=== PATIENT | male | born 1945 | race Hispanic/Latino ===

== ENCOUNTER 2016-07-10 20:49 | Inpatient (IN) | payer MEDICARE ==
--- NOTE | 2016-07-10 21:06 | C.PDOC ---
History Of Present Illness Patient BIBA for intermittent left sided chest pain since this morning. Patient has h/o CAD, HTN, A fib, CHF, COPD, multiple prior MIs, given ASA 324mg in the field by ALS. Patient is [place], Occitan is limited. He is currently also c/o associated SOB. Deneis fever, cough, abdominal pain. Time Seen by Provider: 07/10/16 20:55 Chief Complaint (Nursing): Chest Pain History Per: Patient, EMS History/Exam Limitations: language barrier Onset/Duration Of Symptoms: Hrs Current Symptoms Are (Timing): Still Present Severity: Moderate Quality: "Pain" Past Medical History Reviewed: Historical Data, Nursing Documentation, Vital Signs Vital Signs: Last Vital Signs Temp 97.6 F 07/14/16 15:56 Pulse 88 07/14/16 15:56 Resp 20 07/14/16 15:56 BP 104/69 07/14/16 17:40 Pulse Ox 98 07/14/16 15:56 - Medical History PMH: Atrial Fibrillation, CHF (?), Emphysema Surgical History: Hernia Repair, Pacemaker Family History: States: No Known Family Hx - Social History Hx Alcohol Use: No Hx Substance Use: No - Immunization History Hx Tetanus Toxoid Vaccination: No Hx Influenza Vaccination: No Hx Pneumococcal Vaccination: No Review Of Systems Except As Marked, All Systems Reviewed And Found Negative. Constitutional: Negative for: Fever, Chills Cardiovascular: Positive for: Chest Pain Respiratory: Positive for: Shortness of Breath Gastrointestinal: Negative for: Nausea, Vomiting, Abdominal Pain, Diarrhea Skin: Negative for: Rash Physical Exam - Physical Exam Appears: Well, Non-toxic, In Acute Distress (in mild to moderate discomfort) Skin: Normal Color, Warm, Dry, No Rash Head: Normacephalic Eye(s): bilateral: Normal Inspection Oral Mucosa: Moist Chest: Symmetrical Cardiovascular: Rhythm Irregular (tachycardic ) Respiratory: Accessory Muscle Use (mild), Rales (mild at bases B/L), No Rhonchi , Wheezing (mild expiratory B/L) Gastrointestinal/Abdominal: Normal Exam, Bowel Sounds, Soft, No Tenderness Extremity: Normal ROM, Pedal Edema (+ 1 pitting edema B/L LEs), No Calf Tenderness, No Deformity Pulses: Left Dorsalis Pedis: Normal, Right Dorsalis Pedis: Normal Neurological/Psych: Oriented x3 ED Course And Treatment - Laboratory Results Result Diagrams: 07/14/16 07:00 07/14/16 07:00 ECG: Interpreted By Me, Viewed By Me (AV paced rhythm 102 bpm, PVCs, normal axis , no acute ST changes - prior EKG reviewed, LBBB/PPM morphology seen on prior 12/09/15) ECG Interpretation: Abnormal O2 Sat by Pulse Oximetry: 95 (RA) Pulse Ox Interpretation: Normal - Radiology CXR: Interpreted by Me, Viewed By Me (pulmonary vascular congestion, L>>R) Progress Note: Blood work, CXR, EKG ordered and reviewed. 9:10pm - Dr. Pagan spoken with and has seen EKG, does not think patient meets Code Heart criteria. Patient given PO Vit K due to elevated INR, IV solumedrol, duonebs and IV Lasix. CT chest ordered to further evaluate abnormal CXR - admitting resident aware and will follow results. - Physician Consult Information Physician Contacted: Warren Gonzalez Jr. Outcome Of Conversation: Discussed patient with Dr. Gonzalez, he agrees with admission for chest pain, r/o acs, CHF exacerbation, supratherapeutic INR, COPD exacerbation. resident doctor notified. Medical Decision Making Medical Decision Making: differential diagnoses considered: ND/ACS, CHF exacerbation, asthma/copd, pneumonia, bronchitis, PE, aortic dissection, pancreatitis, gastritis, PUD Disposition - Disposition Disposition: HOSPITALIZED Disposition Time: 23:30 Condition: STABLE - Clinical Impression Clinical Impression: Dyspnea, Elevated INR, Chest pain, CHF exacerbation Decision To Admit - Pt Status Changed To: Hospital Disposition Of: Inpatient - Admit Certification Admit to Inpatient:: After my assessment, the patient will require hospitalization for at least two midnights. This is because of the severity of symptoms shown, intensity of services needed, and/or the medical risk in this patient being treated as an outpatient. - InPatient: Physician Admission Certification: I certify that this patient requires 2 or more midnights of care for the following reason:: see notes - . Bed Request Type: Telemetry Admitting Physician: Warren Gonzalez Jr. Patient Diagnosis: Chest pain, CHF exacerbation, Dyspnea, Elevated INR
[2016-07-10 21:20] LABS: BASO % 0.2 % (0.0-2.0); EOS % 0.1 % (0.0-4.0); HEMATOCRIT 39.4 % (35.0-51.0); LYMPH # 0.5 K/uL (1.0-4.3); MEAN CELL VOLUME 90.2 fL (80.0-94.0); MEAN CORPUSCULAR HEMOGLOBIN 29.2 pg (27.0-31.0); MEAN CORPUSCULAR HGB CONC 32.4 g/dL (33.0-37.0); MEAN PLATELET VOLUME 9.8 fL (7.2-11.7); MONO # 1.1 K/uL (0.0-0.8); PLATELET COUNT 175 K/uL (130-400); RED CELL DISTRIBUTION WIDTH 14.2 % (11.5-14.5); WHITE BLOOD COUNT 12.1 K/uL (4.8-10.8)
[2016-07-10 21:27] LABS: CHLORIDE 97 mmol/L (98-107)
[2016-07-10 21:28] LABS: POTASSIUM 4.3 mmol/L (3.6-5.2); SODIUM 137 mmol/L (132-148)
[2016-07-10 21:30] LABS: ALB/GLOB RATIO 1.1 (1.0-2.1); ALKALINE PHOSPHATASE 61 U/L (38-126); AST/SGOT 31 U/L (17-59); BILIRUBIN,TOTAL 0.6 mg/dL (0.2-1.3); BLOOD UREA NITROGEN 23 mg/dL (9-20); CARBON DIOXIDE 30 mmol/L (22-30); CHOLESTEROL 165 mg/dL (0-199); GFR AFRICAN-AMERICAN > 60; GLUCOSE,RANDOM 168 mg/dL (75-110); TOTAL PROTEIN 6.6 g/dL (6.3-8.3)
[2016-07-10 21:31] LABS: ALT/SGPT 24 U/L (21-72)
[2016-07-10] MEDS ORDERED: Albuterol-Ipratrop 3 mg / 0.5 (3 ml) UD INH STA (22:07)
[2016-07-10] MEDS ORDERED: Albuterol-Ipratrop 3 mg / 0.5 (3 ml) UD ONE (22:33)
[2016-07-10 22:43] LABS: EOSINOPHIL 1 % (0-4); NEUTROPHIL 85 % (50-75); TOTAL CELLS COUNTED 100
[2016-07-10 22:45] LABS: LARGE PLATELETS PRESENT
[2016-07-10] MEDS ORDERED: Iodixanol 320 MG/ML 100 ML BOTTLE IV ONE (23:44)
[2016-07-11] MEDS ORDERED: Albuterol-Ipratrop 3 mg / 0.5 (3 ml) UD INH PRN (00:22)
--- NOTE | 2016-07-11 00:35 | CP.PCM.HP ---
History of Present Illness - History of Present Illness History of Present Illness: Patient is a 71 year old male with past medical history of a.fib, CHF, CAD, KS ( per EMR- pt currently denies) who presents with complaint of left sided chest pain that started this morning. Patient was brought to the ED by ambulance who gave the patient 324mg of aspirin. Patient did not receive any nitroglycerin in the field or the ER. EKG with LBBB, present on prior EKG. Code Heart criteria not met per Dr. Pagan. Patient states the pain was a squeezing sensation and that he did not have it before. Patient currently denies chest pain. Patient denies fever, chills, cough, shortness of breath, pain, leg edema , recent travel. Patient admits to occasional dizziness/ light-headedness. PMD: Dr. Taran Cool PMHx: KS, a.fib, PVD, CHF, CAD Meds: lipitor 10mg, lasix 40mg BID, digoxin 0.125mg, coreg 12.5 BID, asa 81mg, aldactone 25mg, coumadin 5mg, labetalol 300mg BID PSH: hernia repair, pacemaker/ AICD Fam Hx: denies Social Hx: former smoker quit 1.5 years ago, denies alcohol and drugs Present on Admission - Present on Admission Any Indicators Present on Admission: No Review of Systems - Constitutional Constitutional: absent: Chills, Fever - EENT Eyes: absent: Change in Vision Nose/Mouth/Throat: absent: Nasal Congestion - Cardiovascular Cardiovascular: Chest Pain (now resolved), Lightheadedness. absent: Leg Edema - Respiratory Respiratory: Dyspnea. absent: Cough - Gastrointestinal Gastrointestinal: absent: Abdominal Pain, Nausea, Vomiting - Genitourinary Genitourinary: absent: Difficulty Urinating, Urinary Frequency - Musculoskeletal Musculoskeletal: absent: Back Pain - Integumentary Integumentary: absent: Rash, Skin Ulcer - Neurological Neurological: absent: Frequent Falls Past Patient History - Infectious Disease Hx of Infectious Diseases: None - Past Medical History & Family History Past Medical History?: Yes - Past Social History Smoking Status: Former Smoker - CARDIAC Hx Atrial Fibrillation: Yes Hx Congestive Heart Failure: Yes (?) Hx Pacemaker: Yes - PULMONARY Hx Emphysema: Yes - NEUROLOGICAL Hx Neurological Disorder: No - HEENT Hx HEENT Problems: No - RENAL Hx Chronic Kidney Disease: No - ENDOCRINE/METABOLIC Hx Endocrine Disorders: No - HEMATOLOGICAL/ONCOLOGICAL Hx Human Immunodeficiency Virus (HIV): No - INTEGUMENTARY Hx Dermatological Problems: No - MUSCULOSKELETAL/RHEUMATOLOGICAL Hx Musculoskeletal Disorders: No Hx Falls: No - GASTROINTESTINAL Hx Gastrointestinal Disorders: No - GENITOURINARY/GYNECOLOGICAL Hx Genitourinary Disorders: No - PSYCHIATRIC Hx Substance Use: No - SURGICAL HISTORY Hx Surgeries: Yes Other/Comment: hernia repair - ANESTHESIA Hx Anesthesia: Yes Hx Anesthesia Reactions: No Meds Allergies/Adverse Reactions: Allergies Allergy/AdvReac Type Severity Reaction Status Date / Time No Known Allergies Allergy Verified 12/09/15 20:42 Physical Exam - Constitutional Appears: Non-toxic, No Acute Distress - Head Exam Head Exam: ATRAUMATIC, NORMOCEPHALIC - Eye Exam Eye Exam: EOMI - ENT Exam ENT Exam: Mucous Membranes Moist - Respiratory Exam Respiratory Exam: Rales, Rhonchi - Cardiovascular Exam Cardiovascular Exam: Irregular Rhythm Additional comments: precordial pulsation noted pacer/ ICD battery palpable in left chest - GI/Abdominal Exam GI & Abdominal Exam: Normal Bowel Sounds, Soft. absent: Tenderness - Extremities Exam Extremities exam: Positive for: normal inspection. Negative for: calf tenderness - Neurological Exam Neurological exam: Alert Results - Vital Signs Recent Vital Signs: Last Vital Signs Temp 98.4 F 07/10/16 21:00 Pulse 90 07/10/16 23:15 Resp 18 07/10/16 23:15 BP 151/75 H 07/10/16 23:15 Pulse Ox 95 07/10/16 23:33 - Labs Result Diagrams: 07/10/16 21:15 07/10/16 21:15 Assessment & Plan - Assessment and Plan (Free Text) Assessment: 1. Chest pain, r/o ACS now resolved troponin on admission 0.1060 Code Heart criteria not met per Dr. Pagan EKG with LBBB, present on prior EKG will continue to trend troponin lipid panel: triglycerides 76, cholesterol 165, LDL 91, HDL 49 continue home medication: lipitor 10mg will check Hgb a1c, TSH, T4 2. CHF exacerbation BNP 7850 start lasix 60mg IV q12h continue home medication aldactone 25mg daily hold home medication digoxin until dig level obtained, if 1 or greater will continue to hold adding imdur 30mg daily holding labetalol 300mg BID for now, will continue coreg 12.5 BID last echo 12/2015- EF 10%, severely dilated left ventricle will check new echo CXR with venous congestion bilaterally, left greater than right. CTA chest ordered to further evaluate for infiltrate and rule out pulmonary embolus Consult cardiology, Dr. Cruz- help appreciated 3. A. fib rate controlled hold coumadin as INR 5.0 on admission and received 5mg vitamin K re-check INR with morning labs 4. CAD continue aspirin 81mg daily 5. History of Smoking patient with questionable history of COPD received 125 solumedrol in ER, will continue with solumedrol 40mg IV q12h duonebs q6h prn dyspnea 6. Prophylactic measure SCDs holding chemical anticoagulation due to supratherapeutic INR
--- NOTE | 2016-07-11 01:31 | CT ---
EXAM: CT Angiography Chest With Intravenous Contrast CLINICAL HISTORY: 71 years old, male; Pain; Chest pain; Additional info: SOB, left sided effusion vs infiltrate TECHNIQUE: Axial computed tomographic angiography images of the chest with intravenous contrast using pulmonary embolism protocol. This CT exam was performed using one or more of the following dose reduction techniques: automated exposure control, adjustment of the mA and/or kV according to patient size, and/or use of iterative reconstruction technique. MIP reconstructed images were created and reviewed. Coronal and sagittal reformatted images were created and reviewed. CONTRAST: 100 mL of visipaque administered intravenously. COMPARISON: No relevant prior studies available. FINDINGS: Pulmonary arteries: No evidence for large or central pulmonary embolism. Motion artifact limits evaluation of smaller branches. Aorta: Thoracic aorta is atherosclerotic and mildly ectatic without yany aneurysm. Inferior vena cava: Mild reflux into the IVC and hepatic veins raise the possibility of mild right heart failure. Lungs: There are multifocal small airspace opacities in the left upper lobe and lingula most compatible with multifocal pneumonia. A few additional small patchy opacities in the right middle lobe inferiorly. Mild atelectasis at the bases. Pleural space: There is loculated small effusion within the left major fissure and to a lesser extent at the left posterior pleural surface. Questionable trace right effusion. Heart: The heart is moderately enlarged. There is coronary artery calcification. Mediastinum: The esophagus is normal. Bones/joints: There are mild degenerative changes present. There is marked diffuse osteopenia. There is exaggerated thoracic kyphosis. Soft tissues: Unremarkable. Lymph nodes: There is mediastinal lymphadenopathy. There is no axillary adenopathy. No definite hilar adenopathy. Upper abdomen: Scans through the upper abdomen demonstrate no definite acute abnormalities. Tubes, lines and devices: There is a left AICD device with leads extending to right atrium, right ventricle and left ventricle. IMPRESSION: 1. There is mediastinal lymphadenopathy. 2. The heart is moderately enlarged. 3. No evidence for large or central pulmonary embolism. Motion artifact limits evaluation of smaller branches. 4. There are multifocal small airspace opacities in the left upper lobe and lingula most compatible with multifocal pneumonia. A few additional small patchy opacities in the right middle lobe inferiorly. 5. There is loculated small effusion within the left major fissure and to a lesser extent at the left posterior pleural surface. Questionable trace right effusion. 6. Mild reflux into the IVC and hepatic veins raise the possibility of mild right heart failure. 7. Additional incidental and/or chronic findings as described.
[2016-07-11 07:53] LABS: INR 2.8
[2016-07-11 07:57] LABS: BASO % 0.1 % (0.0-2.0); HEMATOCRIT 42.1 % (35.0-51.0); LYMPH # 0.4 K/uL (1.0-4.3); LYMPH % 3.3 % (20.0-40.0); MEAN CORPUSCULAR HEMOGLOBIN 28.8 pg (27.0-31.0); MEAN CORPUSCULAR HGB CONC 32.3 g/dL (33.0-37.0); MEAN PLATELET VOLUME 9.6 fL (7.2-11.7); MONO # 0.2 K/uL (0.0-0.8); MONO % 1.6 % (0.0-10.0); PLATELET COUNT 167 K/uL (130-400); RED CELL DISTRIBUTION WIDTH 14.3 % (11.5-14.5); WHITE BLOOD COUNT 11.9 K/uL (4.8-10.8)
[2016-07-11 08:19] LABS: CHLORIDE 98 mmol/L (98-107); POTASSIUM 3.9 mmol/L (3.6-5.2); SODIUM 140 mmol/L (132-148)
[2016-07-11 08:21] LABS: ALKALINE PHOSPHATASE 67 U/L (38-126); AST/SGOT 27 U/L (17-59); BILIRUBIN,TOTAL 0.7 mg/dL (0.2-1.3); BLOOD UREA NITROGEN 21 mg/dL (9-20); CARBON DIOXIDE 31 mmol/L (22-30); GFR AFRICAN-AMERICAN > 60; TOTAL PROTEIN 6.7 g/dL (6.3-8.3)
[2016-07-11 08:22] LABS: ALT/SGPT 24 U/L (21-72); CALCIUM 8.2 mg/dl (8.6-10.4); GLUCOSE,RANDOM 162 mg/dL (75-110); MAGNESIUM 2.2 mg/dL (1.6-2.3); PHOSPHOROUS 3.5 mg/dL (2.5-4.5)
--- NOTE | 2016-07-11 08:31 | RAD ---
PROCEDURE: CHEST RADIOGRAPH, 1 VIEW HISTORY: Chest pain COMPARISON: None available. FINDINGS: LUNGS: Diffuse prominent increased interstitial lung markings throughout the left lung as well as within the right lung base. Right hilar prominence. This may be related to underlying diffuse infiltrate and or edema. Clinical correlation. Right paratracheal prominence may represent prominent vascularity. Small left pleural effusion. PLEURA: As above. CARDIOVASCULAR: Left-sided pacemaker. Cardiomegaly. OSSEOUS STRUCTURES: No significant abnormalities. VISUALIZED UPPER ABDOMEN: Normal. OTHER FINDINGS: None. IMPRESSION: Diffuse prominent increased interstitial lung markings throughout the left lung as well as within the right lung base. Right hilar prominence. This may be related to underlying diffuse infiltrate and or edema. Clinical correlation. Right paratracheal prominence may represent prominent vascularity. Small left pleural effusion.
[2016-07-11 08:46] LABS: T4 5.55 ug/dL (5.5-11.0)
[2016-07-11 08:59] LABS: THYROID STIMULATING HORMONE 0.23 mIU/L (0.46-4.68)
[2016-07-11 09:24] LABS: NEUTROPHIL 95 % (50-75); TOTAL CELLS COUNTED 100
[2016-07-11] MEDS: MethylPREDNISolone 40 mg Vial IVP SCH ×2 (09:54→21:19)
--- NOTE | 2016-07-11 11:53 | CP.PCM.CON ---
History of Present Illness - History of Present Illness History of Present Illness: Asked to see patient by Dr Gonzalez. Patient is a 71 year old male 71 year old male with PMH HTN, ischemic cardiomyopathy, CAD, AICD who presents with chest pain and dyspnea. Symtpoms began one day prior to admission. The EKG reveals paced ventricular rhythm. The patient was given IV lasix. He is somewhat improved. Review of Systems - Constitutional Constitutional: absent: As Per HPI, Anorexia, Chills, Daytime Sleepiness, Excessive Sweating, Fatigue, Fever, Frequent Falls, Headache, Increased Appetite , Lethargy, Malaise, Night Sweats, Snoring, Sleep Apnea, Weight Gain, Weight Loss, Weakness, Other - EENT Eyes: absent: As Per HPI, Blind Spots, Blurred Vision, Change in Vision, Decreased Night Vision, Diplopia, Discharge, Dry Eye, Exophthalmos, Floaters, Irritation, Itchy Eyes, Loss of Peripheral Vision, Pain, Photophobia, Requires Corrective Lenses, Sees Flashes, Spots in Vision, Tunnel Vision, Other Visual Disturbances, Loss of Vision, Other Ears: absent: As Per HPI, Decreased Hearing, Ear Discharge, Ear Pain, Tinnitus, Abnormal Hearing, Disequilibrium, Dizziness, Other Nose/Mouth/Throat: absent: As Per HPI, Epistaxis, Nasal Congestion, Nasal Discharge, Nasal Obstruction, Nasal Trauma, Nose Pain, Post Nasal Drip, Sinus Pain, Sinus Pressure, Bleeding Gums, Change in Voice, Dental Pain, Dry Mouth, Dysphagia, Halitosis, Hoarsness, Lip Swelling, Mouth Lesions, Mouth Pain, Odynophagia, Sore Throat, Throat Swelling, Tongue Swelling, Facial Pain, Neck Pain, Neck Mass, Other - Cardiovascular Cardiovascular: Dyspnea, Paroxysmal Nocturnal Dyspnea - Respiratory Respiratory: Dyspnea on Exertion - Gastrointestinal Gastrointestinal: absent: As Per HPI, Abdominal Pain, Belching, Bloating, Change in Bowel Habits, Change in Stool Character, Coffee Ground Emesis, Constipation, Cramping, Diarrhea, Dyspepsia, Dysphagia, Early Satiety, Excessive Flatus, Fecal Incontinence, Heartburn, Hematemesis, Hematochezia, Loose Stools, Melena, Nausea, Odynophagia, Temesmus, Vomiting, Other - Musculoskeletal Musculoskeletal: absent: As Per HPI, Abnormal Gait, Arthralgias, Atrophy, Back Pain, Deformity, Joint Swelling, Limited Range of Motion, Loss of Height, Muscle Cramps, Muscle Weakness, Myalgias, Neck Pain, Numbness, Radiating Pain into Limb, Stiffness, Tingling, Other - Integumentary Integumentary: absent: As Per HPI, Acne, Alopecia, Bleeding Lesions, Change in Hair, Change in Nails, Change in Pigmentation, Changing Lesions, Dry Skin, Erythema, Furuncle, Hirsutism, Lesions, New Lesions, Non-Healing Lesions, Photosensitivity, Pruritus, Rash, Skin Pain, Skin Ulcer, Sores, Striae, Swelling , Unusual Bruising, Wounds, Jaundice, Other - Neurological Neurological: absent: As Per HPI, Abnormal Gait, Abnormal Hearing, Abnormal Movements, Abnormal Speech, Behavioral Changes, Burning Sensations, Confusion, Convulsions, Disequilibrium, Dizziness, Numbness, Focal Weakness, Frequent Falls , Headaches, Lack of Coordination, Loss of Vision, Memory Loss, Paresthesias, Radicular Pain, Restless Legs, Sensory Deficit, Syncope, Tingling, Tremor, Vertigo, Weakness, Other Visual Disturbances, Other - Psychiatric Psychiatric: absent: As Per HPI, Abnormal Sleep Pattern, Anhedonia, Anxiety, Auditory Hallucinations, Behavioral Changes, Change in Appetite, Change in Libido, Confusion, Depression, Difficulty Concentrating, Hallucinations, Homicidal Ideation, Hopelessness, Irritability, Memory Loss, Mood Swings, Panic Attacks, Paranoia, Suicidal Ideation, Visual Hallucinations, Tactile Hallucinations, Other - Endocrine Endocrine: absent: As Per HPI, Change in Body Appearance, Change in Libido, Cold Intolorance, Deepening of Voice, Excessive Sweating, Fatigue, Flushing, Heat Intolorance, Increase in Ring/Shoe/Hat Size, Palpitations, Polydipsia, Polyphagia, Polyuria, Other - Hematologic/Lymphatic Hematologic: absent: As Per HPI, Easy Bleeding, Easy Bruising, Lymphadenopathy, Other Past Patient History - Infectious Disease Hx of Infectious Diseases: None - Past Medical History & Family History Past Medical History?: Yes - Past Social History Smoking Status: Former Smoker - CARDIAC Hx Atrial Fibrillation: Yes Hx Congestive Heart Failure: Yes (?) Hx Pacemaker: Yes - PULMONARY Hx Emphysema: Yes - NEUROLOGICAL Hx Neurological Disorder: No - HEENT Hx HEENT Problems: No - RENAL Hx Chronic Kidney Disease: No - ENDOCRINE/METABOLIC Hx Endocrine Disorders: No - HEMATOLOGICAL/ONCOLOGICAL Hx Human Immunodeficiency Virus (HIV): No - INTEGUMENTARY Hx Dermatological Problems: No - MUSCULOSKELETAL/RHEUMATOLOGICAL Hx Musculoskeletal Disorders: No Hx Falls: No - GASTROINTESTINAL Hx Gastrointestinal Disorders: No - GENITOURINARY/GYNECOLOGICAL Hx Genitourinary Disorders: No - PSYCHIATRIC Hx Substance Use: No - SURGICAL HISTORY Hx Surgeries: Yes Other/Comment: hernia repair - ANESTHESIA Hx Anesthesia: Yes Hx Anesthesia Reactions: No Meds Allergies/Adverse Reactions: Allergies Allergy/AdvReac Type Severity Reaction Status Date / Time No Known Allergies Allergy Verified 12/09/15 20:42 - Medications Medications: Current Medications Albuterol/Ipratropium (Duoneb 3 Mg/0.5 Mg (3 Ml) Ud) 3 ml INH RQ6 PRN PRN Reason: Shortness of Breath Last Admin: 07/11/16 01:34 Dose: 3 ml Aspirin (Ecotrin) 81 mg PO DAILY [facility] Last Admin: 07/11/16 09:54 Dose: 81 mg Carvedilol (Coreg) 12.5 mg PO BID [facility] Last Admin: 07/11/16 09:54 Dose: 12.5 mg Furosemide (Lasix) 60 mg IVP Q12 [facility] Last Admin: 07/11/16 09:54 Dose: 60 mg Isosorbide Mononitrate (Imdur) 30 mg PO DAILY [facility] Last Admin: 07/11/16 09:54 Dose: 30 mg Lisinopril (Zestril) 10 mg PO DAILY [facility] Last Admin: 07/11/16 09:54 Dose: 10 mg Methylprednisolone (Solu-Medrol) 40 mg IVP Q12 [facility] Last Admin: 07/11/16 09:54 Dose: 40 mg Pneumococcal Polyvalent Vaccine (Pneumovax 23 Vaccine) 0.5 ml IM .ONCE ONE Stop: 07/13/16 10:01 Rosuvastatin Calcium (Crestor) 5 mg PO [facility] Spironolactone (Aldactone) 25 mg PO DAILY [facility] Last Admin: 07/11/16 09:54 Dose: 25 mg Physical Exam - Constitutional Appears: Non-toxic - Head Exam Head Exam: NORMAL INSPECTION - Eye Exam Eye Exam: Normal appearance - ENT Exam ENT Exam: Mucous Membranes Moist - Neck Exam Neck exam: Positive for: Full Rom - Respiratory Exam Respiratory Exam: Decreased Breath Sounds - Cardiovascular Exam Cardiovascular Exam: REGULAR RHYTHM - GI/Abdominal Exam GI & Abdominal Exam: Normal Bowel Sounds - Rectal Exam Rectal Exam: Deferred - Extremities Exam Extremities exam: Positive for: pedal pulses present - Back Exam Back exam: NORMAL INSPECTION - Neurological Exam Neurological exam: Alert - Psychiatric Exam Psychiatric exam: Normal Mood - Skin Skin Exam: Dry Results - Vital Signs Recent Vital Signs: Last Vital Signs Temp 97.5 F L 07/11/16 07:00 Pulse 70 07/11/16 07:00 Resp 20 07/11/16 07:00 BP 125/71 07/11/16 09:54 Pulse Ox 94 L 07/11/16 07:00 - Labs Result Diagrams: 07/11/16 07:37 07/11/16 07:37 Labs: Laboratory Results - last 24 hr 07/11/16 07/11/16 07/11/16 00:38 02:56 07:37 WBC 11.9 H RBC 4.73 Hgb 13.6 Hct 42.1 MCV 89.0 MCH 28.8 MCHC 32.3 L RDW 14.3 Plt Count 167 MPV 9.6 Neut % (Auto) 95.0 H Lymph % (Auto) 3.3 L Leon % (Auto) 1.6 Eos % (Auto) 0.0 Baso % (Auto) 0.1 Neut # 11.3 H Lymph # 0.4 L Leon # 0.2 Eos # 0.0 Baso # 0.0 Neutrophils % (Manual) 95 H Band Neutrophils % 1 Lymphocytes % (Manual) 2 L Monocytes % (Manual) 2 Platelet Estimate Normal RBC Morphology Normal PT 32.8 H* D INR 2.8 D Sodium 140 Potassium 3.9 Chloride 98 Carbon Dioxide 31 H Anion Gap 15 BUN 21 H Creatinine 0.7 L Est GFR ( Amer) > 60 Est GFR (Non-Af Amer) > 60 Random Glucose 162 H Hemoglobin A1c 6.3 Calcium 8.2 L Phosphorus 3.5 Magnesium 2.2 Total Bilirubin 0.7 AST 27 ALT 24 Alkaline Phosphatase 67 Total Creatine Kinase 92 CK-MB (Mass) 1.65 Troponin I, Quant 0.1080 Total Protein 6.7 Albumin 3.4 L Globulin 3.3 Albumin/Globulin Ratio 1.0 Thyroxine (T4) 5.55 TSH 3rd Generation 0.23 L Digoxin < 0.4 L 07/11/16 11:12 WBC RBC Hgb Hct MCV MCH MCHC RDW Plt Count MPV Neut % (Auto) Lymph % (Auto) Leon % (Auto) Eos % (Auto) Baso % (Auto) Neut # Lymph # Leon # Eos # Baso # Neutrophils % (Manual) Band Neutrophils % Lymphocytes % (Manual) Monocytes % (Manual) Platelet Estimate RBC Morphology PT INR Sodium Potassium Chloride Carbon Dioxide Anion Gap BUN Creatinine Est GFR ( Amer) Est GFR (Non-Af Amer) Random Glucose Hemoglobin A1c Calcium Phosphorus Magnesium Total Bilirubin AST ALT Alkaline Phosphatase Total Creatine Kinase 91 CK-MB (Mass) Troponin I, Quant Total Protein Albumin Globulin Albumin/Globulin Ratio Thyroxine (T4) TSH 3rd Generation Digoxin - EKG Data EKG Interpreted by: Myself Assessment & Plan (1) CHF exacerbation Assessment and Plan: diuresis with lasix Status: Acute Priority: High (2) CAD (coronary artery disease) Assessment and Plan: check serial cardiac enzymes Status: Acute (3) HTN (hypertension) Assessment and Plan: blood presssure control Status: Acute (4) Chronic atrial fibrillation Assessment and Plan: watching INR Status: Acute
--- NOTE | 2016-07-11 12:27 | CARD ---
APPROVED REPORT EKG Measurement Heart [id number] <Conclusion> AV dual-paced rhythm with occasional ventricular-paced complexes and with occasional premature ventricular complexes Abnormal ECG
--- NOTE | 2016-07-11 12:48 | CARD ---
APPROVED REPORT EXAM: Two-dimensional and M-mode echocardiogram with Doppler and color Doppler. Other Information Quality : GoodRhythm : NSR INDICATION Chest Pain Congestive Heart Failure R/O ACS CHF EXACERBATION SURAT M-Mode DIMENSIONS RVDd1.48 (2.1-3.2cm)Left Atrium (MM)3.59 (2.5-4.0cm) IVSd1.64 (0.7-1.1cm)Aortic Root3.32 (2.2-3.7cm) LVDd6.79 (4.0-5.6cm)Aortic Cusp Exc.2.19 (1.5-2.0cm) PWd1.41 (0.7-1.1cm)FS (%) 21 % LVDs5.35 (2.0-3.8cm)LVEF (%)42 (>50%) Mitral Valve MV E Fbxrcmoz94.6cm/sMV A Qfkhkijx60.5cm/sE/A ratio1.1 TDI E/Lateral E'0.0E/Medial E'0.0 Tricuspid Valve TR Peak [id number]/sTR Peak Gr.[id number] LEFT VENTRICLE The Left Ventricle is mildly dilated. There is mild concentric left ventricular hypertrophy. Left ventricle systolic function is mildly to moderately impaired. The Ejection Fraction is 40-45%. There is hypokinesis in the apical inferior wall. Apical motion consistent with pacemaker activation. Transmitral Doppler flow pattern is Grade I-abnormal relaxation pattern. There is no ventricular septal defect visualized. RIGHT VENTRICLE The right ventricle is normal size. The right ventricular systolic function is normal. There is a pacemaker lead in the right ventricle. ATRIA The left atrium is mildly dilated. The right atrium size is normal. AORTIC VALVE The aortic valve is mildly to moderately sclerotic. The aortic valve is tri-cuspid. No aortic regurgitation is present. There is no aortic valvular stenosis. MITRAL VALVE Mitral annular calcification is borderline. There is no evidence of mitral valve prolapse. Mitral regurgitation is trace. TRICUSPID VALVE The tricuspid valve is normal in structure. There is trace tricuspid regurgitation. Right ventricular systolic pressure is estimated at 30-40 mmHg. There is mild pulmonary hypertension. PULMONIC VALVE The pulmonic valve is not well visualized. There is trace pulmonic valvular regurgitation. GREAT VESSELS The IVC is normal in size and collapses >50% with inspiration. PERICARDIAL EFFUSION There is a trace circumferential pericardial effusion. <Conclusion> Left ventricle systolic function is mildly to moderately impaired. The Ejection Fraction is 40-45%. There is hypokinesis in the apical inferior wall. Transmitral Doppler flow pattern is Grade I-abnormal relaxation pattern. Mitral regurgitation is trace. There is mild pulmonary hypertension.
--- NOTE | 2016-07-11 18:46 | CP.PCM.PN ---
<RommelnidhiRustam burnsn - Last Filed: 07/11/16 19:38> Subjective - Date & Time of Evaluation Date of Evaluation: 07/11/16 Time of Evaluation: 11:12 - Subjective Subjective: Pt seen and examined. Pt reports that his chest pain and shortness of breath have improved. Pt complains of weakness in his right thumb and finger when buttoning his shirt which began about a week ago. Pt denies headache, dizziness , fever, chills, changes in vision, nausea, vomiting, paresthesias. Objective - Vital Signs/Intake and Output Vital Signs (last 24 hours): Temp Pulse Resp BP Pulse Ox 97.3 F L 71 20 112/77 95 07/11/16 15:47 07/11/16 15:47 07/11/16 15:47 07/11/16 18:14 07/11/16 15:47 Intake and Output: 07/11/16 07/11/16 06:59 18:59 Intake Total 220 Output Total 800 Balance -580 - Medications Medications: Current Medications Albuterol/Ipratropium (Duoneb 3 Mg/0.5 Mg (3 Ml) Ud) 3 ml INH RQ6 PRN PRN Reason: Shortness of Breath Last Admin: 07/11/16 01:34 Dose: 3 ml Aspirin (Ecotrin) 81 mg PO DAILY [facility] Last Admin: 07/11/16 09:54 Dose: 81 mg Carvedilol (Coreg) 12.5 mg PO BID [facility] Last Admin: 07/11/16 18:14 Dose: 12.5 mg Furosemide (Lasix) 60 mg IVP Q12 [facility] Last Admin: 07/11/16 09:54 Dose: 60 mg Isosorbide Mononitrate (Imdur) 30 mg PO DAILY [facility] Last Admin: 07/11/16 09:54 Dose: 30 mg Lisinopril (Zestril) 10 mg PO DAILY [facility] Last Admin: 07/11/16 09:54 Dose: 10 mg Methylprednisolone (Solu-Medrol) 40 mg IVP Q12 [facility] Last Admin: 07/11/16 09:54 Dose: 40 mg Pneumococcal Polyvalent Vaccine (Pneumovax 23 Vaccine) 0.5 ml IM .ONCE ONE Stop: 07/13/16 10:01 Rosuvastatin Calcium (Crestor) 5 mg PO [facility] Spironolactone (Aldactone) 25 mg PO DAILY [facility] Last Admin: 07/11/16 09:54 Dose: 25 mg - Labs Labs: 07/11/16 07:37 07/11/16 07:37 PT 32.8 SECONDS (9.7-12.2) H* D 07/11/16 07:37 INR 2.8 D 07/11/16 07:37 APTT 58 SECONDS (21-34) H 07/10/16 21:15 - Constitutional Appears: No Acute Distress - Head Exam Head Exam: ATRAUMATIC, NORMOCEPHALIC - Eye Exam Eye Exam: EOMI, PERRL - ENT Exam ENT Exam: Mucous Membranes Moist. absent: Mucous Membranes Dry - Respiratory Exam Respiratory Exam: Clear to Ausculation Bilateral. absent: Rales, Rhonchi, Wheezes, Respiratory Distress - Cardiovascular Exam Cardiovascular Exam: +S1, +S2. absent: Gallop, Rubs - GI/Abdominal Exam GI & Abdominal Exam: Soft. absent: Tenderness - Extremities Exam Extremities Exam: Full ROM. absent: Pedal Edema - Neurological Exam Neurological Exam: Alert, Awake, Oriented x3 - Psychiatric Exam Psychiatric exam: Normal Affect, Normal Mood - Skin Skin Exam: Normal Color, Warm Assessment and Plan - Assessment and Plan (Free Text) Assessment: CHF exacerbation/Dyspnea: Pro-BNP 7850 EKG - dual paced rhythm with occasional PVCs; abnormal EKG (please see full report) CXR with venous congestion bilaterally, left greater than right (please see full report) Lasix 60mg IV q12h Aldactone 25 mg po bid Digoxin 0.125 mg po bid Echocardiogram: EF 40-45%, mild pulmonary HTN, trace mitral regurgitation Imdur 30mg po qd Coreg 12.5 mg po bid Zestril 10 mg po qd Cardiology, Dr. Cruz, consulted. Help appreciated. Duonebs prn for shortness of breath WBC 11.9 Solumedrol 40 mg IV q12h Nontachycardic, no leukocytosis Atrial Fibrillation Coreg 12.5 mg po bid INR 2.8 HTN: Coreg 12.5 mg po bid Zestril 10 mg po qd Aldactone 25 mg po bid Coronary Artery Disease Aspirin 81mg daily Crestor 5 mg po qd Prophylactic measure SCDs holding chemical anticoagulation due to supratherapeutic INR <Warren Gonzalez Jr. - Last Filed: 07/14/16 16:48> Objective - Vital Signs/Intake and Output Vital Signs (last 24 hours): Temp Pulse Resp BP Pulse Ox 97.6 F 88 20 133/78 98 07/14/16 15:56 07/14/16 15:56 07/14/16 15:56 07/14/16 15:56 07/14/16 15:56 Intake and Output: 07/14/16 07/14/16 06:59 18:59 Intake Total 950 Balance 950 - Medications Medications: Current Medications Albuterol/Ipratropium (Duoneb 3 Mg/0.5 Mg (3 Ml) Ud) 3 ml INH RQ6 PRN PRN Reason: Shortness of Breath Last Admin: 07/11/16 01:34 Dose: 3 ml Aspirin (Ecotrin) 81 mg PO DAILY [facility] Last Admin: 07/14/16 09:56 Dose: 81 mg Carvedilol (Coreg) 12.5 mg PO BID [facility] Last Admin: 07/14/16 09:55 Dose: 12.5 mg Digoxin (Lanoxin) 0.125 mg PO DAILY@1800 [facility] Last Admin: 07/13/16 17:30 Dose: 0.125 mg Furosemide (Lasix) 60 mg IVP Q12 [facility] Last Admin: 07/14/16 09:56 Dose: 60 mg Azithromycin 500 mg/ Sodium (Chloride) 250 mls @ 250 mls/hr IVPB DAILY [facility] Last Admin: 07/14/16 10:06 Dose: 250 mls/hr Ceftriaxone Sodium 1 gm/ (Sodium Chloride) 100 mls @ 200 mls/hr IVPB Q24H [facility] Last Admin: 07/14/16 12:31 Dose: 200 mls/hr Isosorbide Mononitrate (Imdur) 30 mg PO DAILY [facility] Last Admin: 07/14/16 10:40 Dose: 30 mg Lisinopril (Zestril) 10 mg PO DAILY [facility] Last Admin: 07/14/16 09:56 Dose: 10 mg Methylprednisolone (Solu-Medrol) 40 mg IVP DAILY [facility] Last Admin: 07/14/16 09:56 Dose: 40 mg Rosuvastatin Calcium (Crestor) 5 mg PO HS [facility] Last Admin: 07/13/16 21:36 Dose: 5 mg Saccharomyces Boulardii (Florastor) 250 mg PO BID [facility] Last Admin: 07/14/16 09:56 Dose: 250 mg Spironolactone (Aldactone) 25 mg PO DAILY [facility] Last Admin: 07/14/16 09:55 Dose: 25 mg - Labs Labs: 07/14/16 07:00 07/14/16 07:00 PT 26.9 SECONDS (9.7-12.2) H D 07/14/16 07:00 INR 2.3 D 07/14/16 07:00 APTT 58 SECONDS (21-34) H 07/10/16 21:15 Attending/Attestation - Attestation I have personally seen and examined this patient.: Yes I have fully participated in the care of the patient.: Yes I have reviewed all pertinent clinical information, including history, physical exam and plan: Yes Notes (Text): 07/14/16 16:48 Patient seen and examined. Agree with resident note and plan of care.
[2016-07-12 08:21] LABS: HEMATOCRIT 37.9 % (35.0-51.0); LYMPH # 0.6 K/uL (1.0-4.3); LYMPH % 3.6 % (20.0-40.0); MEAN CELL VOLUME 89.3 fL (80.0-94.0); MEAN CORPUSCULAR HEMOGLOBIN 28.9 pg (27.0-31.0); MEAN CORPUSCULAR HGB CONC 32.3 g/dL (33.0-37.0); MEAN PLATELET VOLUME 10.1 fL (7.2-11.7); MONO # 0.8 K/uL (0.0-0.8); MONO % 4.5 % (0.0-10.0); PLATELET COUNT 197 K/uL (130-400); WHITE BLOOD COUNT 16.8 K/uL (4.8-10.8)
[2016-07-12 08:31] LABS: CHLORIDE 100 mmol/L (98-107); INR 1.2; POTASSIUM 3.9 mmol/L (3.6-5.2); SODIUM 138 mmol/L (132-148)
[2016-07-12 08:33] LABS: BILIRUBIN,TOTAL 0.5 mg/dL (0.2-1.3); GFR AFRICAN-AMERICAN > 60
[2016-07-12 08:34] LABS: ALB/GLOB RATIO 0.9 (1.0-2.1); ALKALINE PHOSPHATASE 55 U/L (38-126); ALT/SGPT 19 U/L (21-72); AST/SGOT 22 U/L (17-59); BLOOD UREA NITROGEN 36 mg/dL (9-20); CARBON DIOXIDE 28 mmol/L (22-30); GLUCOSE,RANDOM 175 mg/dL (75-110); PHOSPHOROUS 3.8 mg/dL (2.5-4.5)
[2016-07-12 08:35] LABS: CALCIUM 8.1 mg/dl (8.6-10.4); MAGNESIUM 2.1 mg/dL (1.6-2.3)
[2016-07-12] MEDS: MethylPREDNISolone 40 mg Vial IVP SCH ×2 (10:11→22:22)
[2016-07-12 10:14] LABS: NEUTROPHIL 82 % (50-75); REACTIVE LYMPHOCYTES 1 % (0-0); TOTAL CELLS COUNTED 100
[2016-07-12 10:15] LABS: LARGE PLATELETS PRESENT
[2016-07-12] MEDS: Azithromycin 500 MG in Sodium Chloride 0.9% 250 ML IVPB SCH (12:52)
--- NOTE | 2016-07-12 13:30 | CP.PCM.PN ---
<Justin Batres - Last Filed: 07/12/16 13:51> Subjective - Date & Time of Evaluation Date of Evaluation: 07/12/16 Time of Evaluation: 07:52 - Subjective Subjective: Pt seen and examined. Pt reports that he is feeling better today. Pt reports that he is still experiencing weakness with opposition of his thumb and index finger on his right hand. Pt denies fever, chills, chest pain, shortness of breath, nausea, and vomiting. Objective - Vital Signs/Intake and Output Vital Signs (last 24 hours): Temp Pulse Resp BP Pulse Ox 97.4 F L 72 19 120/69 93 L 07/12/16 08:00 07/12/16 08:00 07/12/16 08:00 07/12/16 10:11 07/12/16 08:00 - Medications Medications: Current Medications Albuterol/Ipratropium (Duoneb 3 Mg/0.5 Mg (3 Ml) Ud) 3 ml INH RQ6 PRN PRN Reason: Shortness of Breath Last Admin: 07/11/16 01:34 Dose: 3 ml Aspirin (Ecotrin) 81 mg PO DAILY [facility] Last Admin: 07/12/16 10:10 Dose: 81 mg Carvedilol (Coreg) 12.5 mg PO BID [facility] Last Admin: 07/12/16 10:10 Dose: 12.5 mg Digoxin (Lanoxin) 0.125 mg PO DAILY@1800 [facility] Furosemide (Lasix) 60 mg IVP Q12 [facility] Last Admin: 07/12/16 10:11 Dose: 60 mg Azithromycin 500 mg/ Sodium (Chloride) 250 mls @ 250 mls/hr IVPB DAILY [facility] Last Admin: 07/12/16 12:52 Dose: 250 mls/hr Ceftriaxone Sodium 1 gm/ (Sodium Chloride) 100 mls @ 200 mls/hr IVPB Q24H [facility] Last Admin: 07/12/16 12:51 Dose: 200 mls/hr Isosorbide Mononitrate (Imdur) 30 mg PO DAILY [facility] Last Admin: 07/12/16 10:11 Dose: 30 mg Lisinopril (Zestril) 10 mg PO DAILY [facility] Last Admin: 07/12/16 10:11 Dose: 10 mg Methylprednisolone (Solu-Medrol) 40 mg IVP Q12 [facility] Last Admin: 07/12/16 10:11 Dose: 40 mg Pneumococcal Polyvalent Vaccine (Pneumovax 23 Vaccine) 0.5 ml IM .ONCE ONE Stop: 07/13/16 10:01 Rosuvastatin Calcium (Crestor) 5 mg PO HS [facility] Last Admin: 07/11/16 21:20 Dose: 5 mg Spironolactone (Aldactone) 25 mg PO DAILY [facility] Last Admin: 07/12/16 10:10 Dose: 25 mg - Labs Labs: 07/12/16 08:15 07/12/16 08:15 PT 14.0 SECONDS (9.7-12.2) H D 07/12/16 08:15 INR 1.2 D 07/12/16 08:15 APTT 58 SECONDS (21-34) H 07/10/16 21:15 - Constitutional Appears: No Acute Distress - Head Exam Head Exam: ATRAUMATIC, NORMOCEPHALIC - Eye Exam Eye Exam: EOMI, PERRL - ENT Exam ENT Exam: Mucous Membranes Moist. absent: Mucous Membranes Dry - Neck Exam Neck Exam: Full ROM. absent: Lymphadenopathy - Respiratory Exam Respiratory Exam: Clear to Ausculation Bilateral. absent: Rhonchi, Wheezes - Cardiovascular Exam Cardiovascular Exam: +S1, +S2. absent: Gallop, Rubs - GI/Abdominal Exam GI & Abdominal Exam: Soft. absent: Distended, Tenderness - Extremities Exam Extremities Exam: Full ROM. absent: Pedal Edema - Neurological Exam Neurological Exam: Alert, Awake, Oriented x3 - Psychiatric Exam Psychiatric exam: Normal Affect, Normal Mood - Skin Skin Exam: Normal Color, Warm Assessment and Plan - Assessment and Plan (Free Text) Assessment: Pneumonia: Chest CT - mediastinal lymphadenopathy, no evidence of large or central pulmonary embolism, multifocal airspace opacities in left upper lobe and lingula most compatible with multifocal pneumonia; loculated small effusion ( please see full report) Afebrile, nontachycardic WBC 16.8, on IV solumedrol Azithromycin 500 mg IV qd Rocephin 1 gm IV q24h Strep pneumo, urine [place], mycoplasma IgM pending Procalcitonin pending CHF exacerbation/Dyspnea: Pro-BNP 7850 EKG - dual paced rhythm with occasional PVCs; abnormal EKG (please see full report) CXR with venous congestion bilaterally, left greater than right (please see full report) Lasix 60mg IV q12h Aldactone 25 mg po bid Digoxin 0.125 mg po bid Echocardiogram: EF 40-45%, mild pulmonary HTN, trace mitral regurgitation Imdur 30mg po qd Coreg 12.5 mg po bid Zestril 10 mg po qd Cardiology, Dr. Cruz, consulted. Help appreciated. Duonebs prn for shortness of breath Solumedrol 40 mg IV q12h Nontachycardic, no leukocytosis Atrial Fibrillation Coreg 12.5 mg po bid INR 1.2 today restart coumadin 5 mg po qd HTN: Coreg 12.5 mg po bid Zestril 10 mg po qd Aldactone 25 mg po bid Coronary Artery Disease Aspirin 81mg daily Crestor 5 mg po qd Prophylactic measure DVTs: SCDs, coumadin 5 mg po qd GI: Protonix 40 mg po qd <Warren Gonzalez Jr. - Last Filed: 07/14/16 16:50> Objective - Vital Signs/Intake and Output Vital Signs (last 24 hours): Temp Pulse Resp BP Pulse Ox 97.6 F 88 20 133/78 98 07/14/16 15:56 07/14/16 15:56 07/14/16 15:56 07/14/16 15:56 07/14/16 15:56 Intake and Output: 07/14/16 07/14/16 06:59 18:59 Intake Total 950 Balance 950 - Medications Medications: Current Medications Albuterol/Ipratropium (Duoneb 3 Mg/0.5 Mg (3 Ml) Ud) 3 ml INH RQ6 PRN PRN Reason: Shortness of Breath Last Admin: 07/11/16 01:34 Dose: 3 ml Aspirin (Ecotrin) 81 mg PO DAILY [facility] Last Admin: 07/14/16 09:56 Dose: 81 mg Carvedilol (Coreg) 12.5 mg PO BID [facility] Last Admin: 07/14/16 09:55 Dose: 12.5 mg Digoxin (Lanoxin) 0.125 mg PO DAILY@1800 [facility] Last Admin: 07/13/16 17:30 Dose: 0.125 mg Furosemide (Lasix) 60 mg IVP Q12 [facility] Last Admin: 07/14/16 09:56 Dose: 60 mg Azithromycin 500 mg/ Sodium (Chloride) 250 mls @ 250 mls/hr IVPB DAILY [facility] Last Admin: 07/14/16 10:06 Dose: 250 mls/hr Ceftriaxone Sodium 1 gm/ (Sodium Chloride) 100 mls @ 200 mls/hr IVPB Q24H [facility] Last Admin: 07/14/16 12:31 Dose: 200 mls/hr Isosorbide Mononitrate (Imdur) 30 mg PO DAILY [facility] Last Admin: 07/14/16 10:40 Dose: 30 mg Lisinopril (Zestril) 10 mg PO DAILY [facility] Last Admin: 07/14/16 09:56 Dose: 10 mg Methylprednisolone (Solu-Medrol) 40 mg IVP DAILY [facility] Last Admin: 07/14/16 09:56 Dose: 40 mg Rosuvastatin Calcium (Crestor) 5 mg PO HS [facility] Last Admin: 07/13/16 21:36 Dose: 5 mg Saccharomyces Boulardii (Florastor) 250 mg PO BID [facility] Last Admin: 07/14/16 09:56 Dose: 250 mg Spironolactone (Aldactone) 25 mg PO DAILY [facility] Last Admin: 07/14/16 09:55 Dose: 25 mg - Labs Labs: 07/14/16 07:00 07/14/16 07:00 PT 26.9 SECONDS (9.7-12.2) H D 07/14/16 07:00 INR 2.3 D 07/14/16 07:00 APTT 58 SECONDS (21-34) H 07/10/16 21:15 Attending/Attestation - Attestation I have personally seen and examined this patient.: Yes I have fully participated in the care of the patient.: Yes I have reviewed all pertinent clinical information, including history, physical exam and plan: Yes Notes (Text): 07/14/16 16:49 Patient seen and examined. reviewed resident note and agree with plan of care and findings
[2016-07-12] MEDS: Digoxin 125 mcg (0.125 mg) Tab PO SCH (18:24)
[2016-07-12] MEDS: Saccharomyces Boulardi 250 mg Cap PO SCH (18:24)
[2016-07-13 08:21] LABS: INR 1.3
[2016-07-13 08:24] LABS: BASO % 0.1 % (0.0-2.0); HEMATOCRIT 38.5 % (35.0-51.0); LYMPH # 0.4 K/uL (1.0-4.3); LYMPH % 2.7 % (20.0-40.0); MEAN CELL VOLUME 89.1 fL (80.0-94.0); MEAN CORPUSCULAR HGB CONC 32.6 g/dL (33.0-37.0); MEAN PLATELET VOLUME 9.6 fL (7.2-11.7); MONO # 0.5 K/uL (0.0-0.8); PLATELET COUNT 233 K/uL (130-400); RED CELL DISTRIBUTION WIDTH 14.1 % (11.5-14.5); WHITE BLOOD COUNT 15.8 K/uL (4.8-10.8)
[2016-07-13 08:30] LABS: CHLORIDE 100 mmol/L (98-107); SODIUM 139 mmol/L (132-148)
[2016-07-13 08:33] LABS: ALKALINE PHOSPHATASE 57 U/L (38-126); AST/SGOT 30 U/L (17-59); BILIRUBIN,TOTAL 0.4 mg/dL (0.2-1.3); BLOOD UREA NITROGEN 41 mg/dL (9-20); CARBON DIOXIDE 30 mmol/L (22-30); GFR AFRICAN-AMERICAN > 60; GLUCOSE,RANDOM 139 mg/dL (75-110); PHOSPHOROUS 3.8 mg/dL (2.5-4.5); TOTAL PROTEIN 6.1 g/dL (6.3-8.3)
[2016-07-13 08:34] LABS: ALT/SGPT 35 U/L (21-72); CALCIUM 8.1 mg/dl (8.6-10.4); MAGNESIUM 2.2 mg/dL (1.6-2.3)
[2016-07-13 09:56] LABS: NEUTROPHIL 90 % (50-75); REACTIVE LYMPHOCYTES 1 % (0-0); TOTAL CELLS COUNTED 100
[2016-07-13 09:59] LABS: LARGE PLATELETS PRESENT
[2016-07-13] MEDS ORDERED: Pneumococcal 23-Valent Vaccine IM ONE (10:00)
[2016-07-13] MEDS: Saccharomyces Boulardi 250 mg Cap PO SCH ×2 (10:39→17:30)
[2016-07-13] MEDS: MethylPREDNISolone 40 mg Vial IVP SCH (10:42)
[2016-07-13] MEDS: Azithromycin 500 MG in Sodium Chloride 0.9% 250 ML IVPB SCH (10:42)
--- NOTE | 2016-07-13 10:47 | CP.PCM.PN ---
Subjective - Date & Time of Evaluation Date of Evaluation: 07/13/16 Time of Evaluation: 10:20 - Subjective Subjective: Patient has less dyspnea. Objective - Vital Signs/Intake and Output Vital Signs (last 24 hours): Temp Pulse Resp BP Pulse Ox 97.6 F 88 21 120/79 95 07/13/16 08:14 07/13/16 09:10 07/13/16 08:14 07/13/16 10:39 07/13/16 08:14 - Medications Medications: Current Medications Albuterol/Ipratropium (Duoneb 3 Mg/0.5 Mg (3 Ml) Ud) 3 ml INH RQ6 PRN PRN Reason: Shortness of Breath Last Admin: 07/11/16 01:34 Dose: 3 ml Aspirin (Ecotrin) 81 mg PO DAILY [facility] Last Admin: 07/13/16 10:39 Dose: 81 mg Carvedilol (Coreg) 12.5 mg PO BID [facility] Last Admin: 07/13/16 10:39 Dose: 12.5 mg Digoxin (Lanoxin) 0.125 mg PO DAILY@1800 [facility] Last Admin: 07/12/16 18:24 Dose: 0.125 mg Furosemide (Lasix) 60 mg IVP Q12 [facility] Last Admin: 07/13/16 10:39 Dose: 60 mg Azithromycin 500 mg/ Sodium (Chloride) 250 mls @ 250 mls/hr IVPB DAILY [facility] Last Admin: 07/13/16 10:42 Dose: 250 mls/hr Ceftriaxone Sodium 1 gm/ (Sodium Chloride) 100 mls @ 200 mls/hr IVPB Q24H [facility] Last Admin: 07/12/16 12:51 Dose: 200 mls/hr Isosorbide Mononitrate (Imdur) 30 mg PO DAILY [facility] Last Admin: 07/13/16 10:39 Dose: 30 mg Lisinopril (Zestril) 10 mg PO DAILY [facility] Last Admin: 07/13/16 10:42 Dose: 10 mg Methylprednisolone (Solu-Medrol) 40 mg IVP Q12 [facility] Last Admin: 07/13/16 10:42 Dose: 40 mg Rosuvastatin Calcium (Crestor) 5 mg PO HS [facility] Last Admin: 07/12/16 22:21 Dose: 5 mg Saccharomyces Boulardii (Florastor) 250 mg PO BID [facility] Last Admin: 07/13/16 10:39 Dose: 250 mg Spironolactone (Aldactone) 25 mg PO DAILY [facility] Last Admin: 07/13/16 10:38 Dose: 25 mg - Labs Labs: 07/13/16 08:06 07/13/16 08:06 PT 15.2 SECONDS (9.7-12.2) H 07/13/16 08:06 INR 1.3 07/13/16 08:06 APTT 58 SECONDS (21-34) H 07/10/16 21:15 - Constitutional Appears: Non-toxic - Head Exam Head Exam: NORMAL INSPECTION - Eye Exam Eye Exam: Normal appearance - ENT Exam ENT Exam: Mucous Membranes Moist - Neck Exam Neck Exam: Full ROM - Respiratory Exam Respiratory Exam: Decreased Breath Sounds - Cardiovascular Exam Cardiovascular Exam: REGULAR RHYTHM - GI/Abdominal Exam GI & Abdominal Exam: Normal Bowel Sounds - Rectal Exam Rectal Exam: Deferred - Extremities Exam Extremities Exam: absent: Pedal Edema - Back Exam Back Exam: NORMAL INSPECTION - Neurological Exam Neurological Exam: Alert - Psychiatric Exam Psychiatric exam: Normal Affect - Skin Skin Exam: Normal Color Assessment and Plan (1) CHF exacerbation Assessment & Plan: improved with current therapy. Status: Acute (2) CAD (coronary artery disease) Assessment & Plan: no angina Status: Acute (3) HTN (hypertension) Assessment & Plan: blood pressure is controlled Status: Acute (4) Chronic atrial fibrillation Assessment & Plan: need INR 2-3. Status: Acute
--- NOTE | 2016-07-13 15:12 | CP.PCM.PN ---
<Justin Batres - Last Filed: 07/13/16 15:20> Subjective - Date & Time of Evaluation Date of Evaluation: 07/13/16 Time of Evaluation: 07:34 - Subjective Subjective: Pt seen and examined. Pt reports that he is feeling a bit short of breath today. Pt denies fever, chills, chest pain, nausea, vomiting. Objective - Vital Signs/Intake and Output Vital Signs (last 24 hours): Temp Pulse Resp BP Pulse Ox 97.6 F 88 21 120/79 95 07/13/16 08:14 07/13/16 13:10 07/13/16 08:14 07/13/16 10:39 07/13/16 08:14 - Medications Medications: Current Medications Albuterol/Ipratropium (Duoneb 3 Mg/0.5 Mg (3 Ml) Ud) 3 ml INH RQ6 PRN PRN Reason: Shortness of Breath Last Admin: 07/11/16 01:34 Dose: 3 ml Aspirin (Ecotrin) 81 mg PO DAILY [facility] Last Admin: 07/13/16 10:39 Dose: 81 mg Carvedilol (Coreg) 12.5 mg PO BID [facility] Last Admin: 07/13/16 10:39 Dose: 12.5 mg Digoxin (Lanoxin) 0.125 mg PO DAILY@1800 [facility] Last Admin: 07/12/16 18:24 Dose: 0.125 mg Furosemide (Lasix) 60 mg IVP Q12 [facility] Last Admin: 07/13/16 10:39 Dose: 60 mg Azithromycin 500 mg/ Sodium (Chloride) 250 mls @ 250 mls/hr IVPB DAILY [facility] Last Admin: 07/13/16 10:42 Dose: 250 mls/hr Ceftriaxone Sodium 1 gm/ (Sodium Chloride) 100 mls @ 200 mls/hr IVPB Q24H [facility] Last Admin: 07/13/16 12:50 Dose: 200 mls/hr Isosorbide Mononitrate (Imdur) 30 mg PO DAILY [facility] Last Admin: 07/13/16 10:39 Dose: 30 mg Lisinopril (Zestril) 10 mg PO DAILY [facility] Last Admin: 07/13/16 10:42 Dose: 10 mg Methylprednisolone (Solu-Medrol) 40 mg IVP Q12 [facility] Last Admin: 07/13/16 10:42 Dose: 40 mg Rosuvastatin Calcium (Crestor) 5 mg PO HS [facility] Last Admin: 07/12/16 22:21 Dose: 5 mg Saccharomyces Boulardii (Florastor) 250 mg PO BID [facility] Last Admin: 07/13/16 10:39 Dose: 250 mg Spironolactone (Aldactone) 25 mg PO DAILY [facility] Last Admin: 07/13/16 10:38 Dose: 25 mg - Labs Labs: 07/13/16 08:06 07/13/16 08:06 PT 15.2 SECONDS (9.7-12.2) H 07/13/16 08:06 INR 1.3 07/13/16 08:06 APTT 58 SECONDS (21-34) H 07/10/16 21:15 - Constitutional Appears: No Acute Distress - Head Exam Head Exam: ATRAUMATIC, NORMOCEPHALIC - Eye Exam Eye Exam: EOMI, PERRL - ENT Exam ENT Exam: Mucous Membranes Moist. absent: Mucous Membranes Dry - Neck Exam Neck Exam: Full ROM. absent: Lymphadenopathy - Respiratory Exam Respiratory Exam: Clear to Ausculation Bilateral. absent: Rales, Rhonchi, Wheezes - Cardiovascular Exam Cardiovascular Exam: Irregular Rhythm, +S1, +S2. absent: Gallop, Rubs - GI/Abdominal Exam GI & Abdominal Exam: Soft. absent: Distended, Tenderness - Extremities Exam Extremities Exam: Full ROM. absent: Pedal Edema - Neurological Exam Neurological Exam: Alert, Awake, Oriented x3 - Psychiatric Exam Psychiatric exam: Normal Affect, Normal Mood - Skin Skin Exam: Normal Color, Warm Assessment and Plan - Assessment and Plan (Free Text) Assessment: Pneumonia: Chest CT - mediastinal lymphadenopathy, no evidence of large or central pulmonary embolism, multifocal airspace opacities in left upper lobe and lingula most compatible with multifocal pneumonia; loculated small effusion ( please see full report) Afebrile, nontachycardic WBC 15.8, on IV solumedrol Azithromycin 500 mg IV qd Rocephin 1 gm IV q24h Strep pneumo, urine [place], mycoplasma IgM pending Procalcitonin 0.4 CHF exacerbation/Dyspnea: Pro-BNP 7850 Troponins x 2, 0.1080, 0.0860 EKG - dual paced rhythm with occasional PVCs; abnormal EKG (please see full report) CXR with venous congestion bilaterally, left greater than right (please see full report) Lasix 60mg IV q12h Aldactone 25 mg po bid Digoxin 0.125 mg po bid Echocardiogram: EF 40-45%, mild pulmonary HTN, trace mitral regurgitation Imdur 30mg po qd Coreg 12.5 mg po bid Zestril 10 mg po qd Cardiology, Dr. Cruz, consulted. Help appreciated. Duonebs q6h prn for shortness of breath Solumedrol 40 mg IV q12h Atrial Fibrillation Rate controlled Coreg 12.5 mg po bid INR 1.3 today Continue coumadin 5 mg po qd Follow up dialy INR HTN: Coreg 12.5 mg po bid Zestril 10 mg po qd Aldactone 25 mg po bid Coronary Artery Disease Aspirin 81mg daily Crestor 5 mg po qd Prophylactic measure DVTs: SCDs, coumadin 5 mg po qd GI: Protonix 40 mg po qd <Warren Gonzalez Jr. - Last Filed: 07/14/16 16:56> Objective - Vital Signs/Intake and Output Vital Signs (last 24 hours): Temp Pulse Resp BP Pulse Ox 97.6 F 88 20 133/78 98 07/14/16 15:56 07/14/16 15:56 07/14/16 15:56 07/14/16 15:56 07/14/16 15:56 Intake and Output: 07/14/16 07/14/16 06:59 18:59 Intake Total 950 Balance 950 - Medications Medications: Current Medications Albuterol/Ipratropium (Duoneb 3 Mg/0.5 Mg (3 Ml) Ud) 3 ml INH RQ6 PRN PRN Reason: Shortness of Breath Last Admin: 07/11/16 01:34 Dose: 3 ml Aspirin (Ecotrin) 81 mg PO DAILY [facility] Last Admin: 07/14/16 09:56 Dose: 81 mg Carvedilol (Coreg) 12.5 mg PO BID [facility] Last Admin: 07/14/16 09:55 Dose: 12.5 mg Digoxin (Lanoxin) 0.125 mg PO DAILY@1800 [facility] Last Admin: 07/13/16 17:30 Dose: 0.125 mg Furosemide (Lasix) 60 mg IVP Q12 [facility] Last Admin: 07/14/16 09:56 Dose: 60 mg Azithromycin 500 mg/ Sodium (Chloride) 250 mls @ 250 mls/hr IVPB DAILY [facility] Last Admin: 07/14/16 10:06 Dose: 250 mls/hr Ceftriaxone Sodium 1 gm/ (Sodium Chloride) 100 mls @ 200 mls/hr IVPB Q24H [facility] Last Admin: 07/14/16 12:31 Dose: 200 mls/hr Isosorbide Mononitrate (Imdur) 30 mg PO DAILY [facility] Last Admin: 07/14/16 10:40 Dose: 30 mg Lisinopril (Zestril) 10 mg PO DAILY [facility] Last Admin: 07/14/16 09:56 Dose: 10 mg Methylprednisolone (Solu-Medrol) 40 mg IVP DAILY [facility] Last Admin: 07/14/16 09:56 Dose: 40 mg Rosuvastatin Calcium (Crestor) 5 mg PO HS [facility] Last Admin: 07/13/16 21:36 Dose: 5 mg Saccharomyces Boulardii (Florastor) 250 mg PO BID [facility] Last Admin: 07/14/16 09:56 Dose: 250 mg Spironolactone (Aldactone) 25 mg PO DAILY [facility] Last Admin: 07/14/16 09:55 Dose: 25 mg - Labs Labs: 07/14/16 07:00 07/14/16 07:00 PT 26.9 SECONDS (9.7-12.2) H D 07/14/16 07:00 INR 2.3 D 07/14/16 07:00 APTT 58 SECONDS (21-34) H 07/10/16 21:15 Attending/Attestation - Attestation I have personally seen and examined this patient.: Yes I have fully participated in the care of the patient.: Yes I have reviewed all pertinent clinical information, including history, physical exam and plan: Yes Notes (Text): 07/14/16 16:55 Patient seen and examined. Reviewed resident note and agree with plan of care and findings
[2016-07-13 15:43] VITALS: RESP 20
[2016-07-13] MEDS: Digoxin 125 mcg (0.125 mg) Tab PO SCH (17:30)
--- NOTE | 2016-07-13 19:04 | CP.PCM.CON ---
History of Present Illness - History of Present Illness History of Present Illness: General surgery - Dr. Fox 71yo M w/ hx of CHF, CAD, Afib on coumadin, admitted with chest pain/SOB and found to have Pneumonia. His chest pain has been worked up by cardiology and he is receiving antibiotics for the pneumonia. Earlier today pt was reportedly complaining of discomfort from a Left inguinal hernia, so surgery was called to evaluate. Pt states he has had this hernia for some time and sometimes it gets stuck and causes him pain. He denies any pain currently and the hernia is easily reducible upon exam. Pt is eating and denies any nausea, vomiting, constipation, or any changes in bowel movements. Review of Systems - Review of Systems All systems: reviewed and no additional remarkable complaints except (as per HPI ) Past Patient History - Infectious Disease Hx of Infectious Diseases: None - Past Medical History & Family History Past Medical History?: Yes - Past Social History Smoking Status: Former Smoker - CARDIAC Hx Congestive Heart Failure: Yes (?) - PULMONARY Hx Emphysema: Yes - NEUROLOGICAL Hx Neurological Disorder: No - HEENT Hx HEENT Problems: No - RENAL Hx Chronic Kidney Disease: No - ENDOCRINE/METABOLIC Hx Endocrine Disorders: No - HEMATOLOGICAL/ONCOLOGICAL Hx Human Immunodeficiency Virus (HIV): No - INTEGUMENTARY Hx Dermatological Problems: No - MUSCULOSKELETAL/RHEUMATOLOGICAL Hx Falls: No - GASTROINTESTINAL Hx Gastrointestinal Disorders: No - GENITOURINARY/GYNECOLOGICAL Hx Genitourinary Disorders: No - PSYCHIATRIC Hx Substance Use: No - SURGICAL HISTORY Hx Surgeries: Yes Other/Comment: hernia repair - ANESTHESIA Hx Anesthesia: Yes Hx Anesthesia Reactions: No Meds Allergies/Adverse Reactions: Allergies Allergy/AdvReac Type Severity Reaction Status Date / Time No Known Allergies Allergy Verified 12/09/15 20:42 - Medications Medications: Current Medications Albuterol/Ipratropium (Duoneb 3 Mg/0.5 Mg (3 Ml) Ud) 3 ml INH RQ6 PRN PRN Reason: Shortness of Breath Last Admin: 07/11/16 01:34 Dose: 3 ml Aspirin (Ecotrin) 81 mg PO DAILY [facility] Last Admin: 07/13/16 10:39 Dose: 81 mg Carvedilol (Coreg) 12.5 mg PO BID [facility] Last Admin: 07/13/16 17:28 Dose: 12.5 mg Digoxin (Lanoxin) 0.125 mg PO DAILY@1800 [facility] Last Admin: 07/13/16 17:30 Dose: 0.125 mg Furosemide (Lasix) 60 mg IVP Q12 [facility] Last Admin: 07/13/16 10:39 Dose: 60 mg Azithromycin 500 mg/ Sodium (Chloride) 250 mls @ 250 mls/hr IVPB DAILY [facility] Last Admin: 07/13/16 10:42 Dose: 250 mls/hr Ceftriaxone Sodium 1 gm/ (Sodium Chloride) 100 mls @ 200 mls/hr IVPB Q24H [facility] Last Admin: 07/13/16 12:50 Dose: 200 mls/hr Isosorbide Mononitrate (Imdur) 30 mg PO DAILY [facility] Last Admin: 07/13/16 10:39 Dose: 30 mg Lisinopril (Zestril) 10 mg PO DAILY [facility] Last Admin: 07/13/16 10:42 Dose: 10 mg Methylprednisolone (Solu-Medrol) 40 mg IVP DAILY [facility] Rosuvastatin Calcium (Crestor) 5 mg PO HS [facility] Last Admin: 07/12/16 22:21 Dose: 5 mg Saccharomyces Boulardii (Florastor) 250 mg PO BID [facility] Last Admin: 07/13/16 17:30 Dose: 250 mg Spironolactone (Aldactone) 25 mg PO DAILY [facility] Last Admin: 07/13/16 10:38 Dose: 25 mg Physical Exam - Constitutional Appears: No Acute Distress - Head Exam Head Exam: ATRAUMATIC, NORMAL INSPECTION, NORMOCEPHALIC - Eye Exam Eye Exam: Normal appearance - Respiratory Exam Respiratory Exam: NORMAL BREATHING PATTERN. absent: Respiratory Distress - GI/Abdominal Exam GI & Abdominal Exam: Hernia (Left inguinal hernia, likely direct, easily reducible, nontender, no skin changes), Soft. absent: Distended, Guarding, Rebound, Tenderness - Neurological Exam Neurological exam: Alert, Oriented x3 - Psychiatric Exam Psychiatric exam: Normal Affect, Normal Mood - Skin Skin Exam: Dry, Intact Results - Vital Signs Recent Vital Signs: Last Vital Signs Temp 97.4 F L 07/13/16 15:40 Pulse 84 07/13/16 17:00 Resp 20 07/13/16 15:40 BP 132/66 07/13/16 17:28 Pulse Ox 95 07/13/16 15:40 - Labs Result Diagrams: 07/13/16 08:06 07/13/16 08:06 Labs: Laboratory Results - last 24 hr 07/13/16 07/13/16 07/13/16 07:34 08:06 11:16 WBC 15.8 H RBC 4.32 L Hgb 12.5 Hct 38.5 MCV 89.1 MCH 29.0 MCHC 32.6 L RDW 14.1 Plt Count 233 MPV 9.6 Neut % (Auto) 94.2 H Lymph % (Auto) 2.7 L Cameron % (Auto) 3.0 Eos % (Auto) 0.0 Baso % (Auto) 0.1 Neut # 14.9 H Lymph # 0.4 L Cameron # 0.5 Eos # 0.0 Baso # 0.0 Neutrophils % (Manual) 90 H Band Neutrophils % 7 H Lymphocytes % (Manual) 1 L Reactive Lymphs % 1 H Monocytes % (Manual) 1 Platelet Estimate Normal Large Platelets Present Ovalocytes Slight PT 15.2 H INR 1.3 Sodium 139 Potassium 4.0 Chloride 100 Carbon Dioxide 30 Anion Gap 13 BUN 41 H Creatinine 0.8 Est GFR ( Amer) > 60 Est GFR (Non-Af Amer) > 60 POC Glucose (mg/dL) 128 H 137 H Random Glucose 139 H Calcium 8.1 L Phosphorus 3.8 Magnesium 2.2 Total Bilirubin 0.4 AST 30 ALT 35 Alkaline Phosphatase 57 Total Protein 6.1 L Albumin 3.1 L Globulin 3.0 Albumin/Globulin Ratio 1.0 07/13/16 16:58 WBC RBC Hgb Hct MCV MCH MCHC RDW Plt Count MPV Neut % (Auto) Lymph % (Auto) Cameron % (Auto) Eos % (Auto) Baso % (Auto) Neut # Lymph # Cameron # Eos # Baso # Neutrophils % (Manual) Band Neutrophils % Lymphocytes % (Manual) Reactive Lymphs % Monocytes % (Manual) Platelet Estimate Large Platelets Ovalocytes PT INR Sodium Potassium Chloride Carbon Dioxide Anion Gap BUN Creatinine Est GFR ( Amer) Est GFR (Non-Af Amer) POC Glucose (mg/dL) 232 H Random Glucose Calcium Phosphorus Magnesium Total Bilirubin AST ALT Alkaline Phosphatase Total Protein Albumin Globulin Albumin/Globulin Ratio Assessment & Plan - Assessment and Plan (Free Text) Assessment: 71 yo M w/ CHF, AFib on coumadin, here with Pneumonia and surgery consulted for Left inguinal hernia -Hernia is easily reducible, no signs of incarceration or strangulation -Continue Medical Tx for the Pneumonia -No urgent surgical intervention, can likely be done electively when medical issues resolved DW Dr Ruddy Quiñones PGY2
[2016-07-14 07:25] LABS: INR 2.3
[2016-07-14 07:28] LABS: BASO % 0.1 % (0.0-2.0); HEMATOCRIT 40.1 % (35.0-51.0); LYMPH % 7.2 % (20.0-40.0); MEAN CELL VOLUME 89.2 fL (80.0-94.0); MEAN CORPUSCULAR HEMOGLOBIN 28.8 pg (27.0-31.0); MEAN CORPUSCULAR HGB CONC 32.3 g/dL (33.0-37.0); MEAN PLATELET VOLUME 9.7 fL (7.2-11.7); MONO # 1.2 K/uL (0.0-0.8); MONO % 8.8 % (0.0-10.0); PLATELET COUNT 254 K/uL (130-400); WHITE BLOOD COUNT 13.8 K/uL (4.8-10.8)
[2016-07-14 07:52] LABS: CHLORIDE 98 mmol/L (98-107)
[2016-07-14 07:53] LABS: POTASSIUM 4.1 mmol/L (3.6-5.2); SODIUM 138 mmol/L (132-148)
[2016-07-14 07:56] VITALS: TEMP 97.6
[2016-07-14 07:56] LABS: ALB/GLOB RATIO 1.1 (1.0-2.1); ALKALINE PHOSPHATASE 62 U/L (38-126); ALT/SGPT 46 U/L (21-72); AST/SGOT 51 U/L (17-59); BILIRUBIN,TOTAL 0.3 mg/dL (0.2-1.3); BLOOD UREA NITROGEN 45 mg/dL (9-20); CALCIUM 7.9 mg/dl (8.6-10.4); CARBON DIOXIDE 32 mmol/L (22-30); GFR AFRICAN-AMERICAN > 60; GLUCOSE,RANDOM 97 mg/dL (75-110); PHOSPHOROUS 3.3 mg/dL (2.5-4.5); TOTAL PROTEIN 5.8 g/dL (6.3-8.3)
[2016-07-14 07:57] LABS: MAGNESIUM 2.3 mg/dL (1.6-2.3)
--- NOTE | 2016-07-14 08:01 | CP.PCM.PN ---
Subjective - Date & Time of Evaluation Date of Evaluation: 07/14/16 Time of Evaluation: 07:30 - Subjective Subjective: patient has nonew complaints. seen by surgery for hernia. elective management. Objective - Vital Signs/Intake and Output Vital Signs (last 24 hours): Temp Pulse Resp BP Pulse Ox 97.6 F 76 20 125/85 97 07/14/16 07:00 07/14/16 07:00 07/14/16 07:00 07/14/16 07:00 07/14/16 07:00 - Medications Medications: Current Medications Albuterol/Ipratropium (Duoneb 3 Mg/0.5 Mg (3 Ml) Ud) 3 ml INH RQ6 PRN PRN Reason: Shortness of Breath Last Admin: 07/11/16 01:34 Dose: 3 ml Aspirin (Ecotrin) 81 mg PO DAILY [facility] Last Admin: 07/13/16 10:39 Dose: 81 mg Carvedilol (Coreg) 12.5 mg PO BID [facility] Last Admin: 07/13/16 17:28 Dose: 12.5 mg Digoxin (Lanoxin) 0.125 mg PO DAILY@1800 [facility] Last Admin: 07/13/16 17:30 Dose: 0.125 mg Furosemide (Lasix) 60 mg IVP Q12 [facility] Last Admin: 07/13/16 21:37 Dose: 60 mg Azithromycin 500 mg/ Sodium (Chloride) 250 mls @ 250 mls/hr IVPB DAILY [facility] Last Admin: 07/13/16 10:42 Dose: 250 mls/hr Ceftriaxone Sodium 1 gm/ (Sodium Chloride) 100 mls @ 200 mls/hr IVPB Q24H [facility] Last Admin: 07/13/16 12:50 Dose: 200 mls/hr Isosorbide Mononitrate (Imdur) 30 mg PO DAILY [facility] Last Admin: 07/13/16 10:39 Dose: 30 mg Lisinopril (Zestril) 10 mg PO DAILY [facility] Last Admin: 07/13/16 10:42 Dose: 10 mg Methylprednisolone (Solu-Medrol) 40 mg IVP DAILY [facility] Rosuvastatin Calcium (Crestor) 5 mg PO HS [facility] Last Admin: 07/13/16 21:36 Dose: 5 mg Saccharomyces Boulardii (Florastor) 250 mg PO BID [facility] Last Admin: 07/13/16 17:30 Dose: 250 mg Spironolactone (Aldactone) 25 mg PO DAILY [facility] Last Admin: 07/13/16 10:38 Dose: 25 mg - Labs Labs: 07/14/16 07:00 07/13/16 08:06 PT 26.9 SECONDS (9.7-12.2) H D 07/14/16 07:00 INR 2.3 D 07/14/16 07:00 APTT 58 SECONDS (21-34) H 07/10/16 21:15 - Constitutional Appears: Non-toxic - Head Exam Head Exam: NORMAL INSPECTION - Eye Exam Eye Exam: Normal appearance - ENT Exam ENT Exam: Mucous Membranes Moist - Neck Exam Neck Exam: Full ROM - Respiratory Exam Respiratory Exam: Decreased Breath Sounds - Cardiovascular Exam Cardiovascular Exam: REGULAR RHYTHM - GI/Abdominal Exam GI & Abdominal Exam: Normal Bowel Sounds - Rectal Exam Rectal Exam: Deferred - Extremities Exam Extremities Exam: Pedal Edema - Back Exam Back Exam: NORMAL INSPECTION - Neurological Exam Neurological Exam: Alert - Psychiatric Exam Psychiatric exam: Normal Affect - Skin Skin Exam: Normal Color Assessment and Plan (1) CHF exacerbation Assessment & Plan: improved with diuretic therapy. po diuretics Status: Acute (2) CAD (coronary artery disease) Assessment & Plan: s/p CABG. no current angina Status: Acute (3) HTN (hypertension) Assessment & Plan: blood pressure control Status: Acute (4) Chronic atrial fibrillation Assessment & Plan: goal INR 2-3. Status: Acute
[2016-07-14 08:39] LABS: NEUTROPHIL 81 % (50-75); TOTAL CELLS COUNTED 100
[2016-07-14 08:40] LABS: LARGE PLATELETS PRESENT
[2016-07-14] MEDS: Saccharomyces Boulardi 250 mg Cap PO SCH ×2 (09:56→17:40)
[2016-07-14] MEDS ORDERED: MethylPREDNISolone 40 mg Vial IVP SCH (10:00)
[2016-07-14] MEDS: Azithromycin 500 MG in Sodium Chloride 0.9% 250 ML IVPB SCH (10:06)
--- NOTE | 2016-07-14 10:20 | RAD ---
Chest x-ray two views History: Pneumonia. Comparison: 07/10/2016 Findings: Persistent increased ill-defined consolidative marking seen within the left mid to lower lung zone as well as at the right lung base. Bilateral hilar prominence. Right paratracheal prominence may represent prominent vascularity. Cardiomegaly. Left-sided pacemaker. Scattered nodularity in the left midlung zone and right lung base. Tortuous aorta. Calcification at the aortic knob. Left-sided pacemaker. Degenerative changes in the spine and shoulders. Impression: Persistent increased ill-defined consolidative marking seen within the left mid to lower lung zone as well as at the right lung base.
--- NOTE | 2016-07-14 10:40 | CP.PCM.PN ---
Subjective - Date & Time of Evaluation Date of Evaluation: 07/14/16 Time of Evaluation: 07:00 - Subjective Subjective: Gen Surg: Dr. Fox Patient seen and examined this AM. Inguinal hernia is easily reducible. Patient denies nausea/vomiting/ abdominal pain. Objective - Vital Signs/Intake and Output Vital Signs (last 24 hours): Temp Pulse Resp BP Pulse Ox 97.6 F 76 20 127/71 97 07/14/16 07:00 07/14/16 07:00 07/14/16 07:00 07/14/16 09:56 07/14/16 07:00 - Medications Medications: Current Medications Albuterol/Ipratropium (Duoneb 3 Mg/0.5 Mg (3 Ml) Ud) 3 ml INH RQ6 PRN PRN Reason: Shortness of Breath Last Admin: 07/11/16 01:34 Dose: 3 ml Aspirin (Ecotrin) 81 mg PO DAILY [facility] Last Admin: 07/14/16 09:56 Dose: 81 mg Carvedilol (Coreg) 12.5 mg PO BID [facility] Last Admin: 07/14/16 09:55 Dose: 12.5 mg Digoxin (Lanoxin) 0.125 mg PO DAILY@1800 [facility] Last Admin: 07/13/16 17:30 Dose: 0.125 mg Furosemide (Lasix) 60 mg IVP Q12 [facility] Last Admin: 07/14/16 09:56 Dose: 60 mg Azithromycin 500 mg/ Sodium (Chloride) 250 mls @ 250 mls/hr IVPB DAILY [facility] Last Admin: 07/14/16 10:06 Dose: 250 mls/hr Ceftriaxone Sodium 1 gm/ (Sodium Chloride) 100 mls @ 200 mls/hr IVPB Q24H [facility] Last Admin: 07/13/16 12:50 Dose: 200 mls/hr Isosorbide Mononitrate (Imdur) 30 mg PO DAILY [facility] Last Admin: 07/13/16 10:39 Dose: 30 mg Lisinopril (Zestril) 10 mg PO DAILY [facility] Last Admin: 07/14/16 09:56 Dose: 10 mg Methylprednisolone (Solu-Medrol) 40 mg IVP DAILY [facility] Last Admin: 07/14/16 09:56 Dose: 40 mg Rosuvastatin Calcium (Crestor) 5 mg PO HS [facility] Last Admin: 07/13/16 21:36 Dose: 5 mg Saccharomyces Boulardii (Florastor) 250 mg PO BID [facility] Last Admin: 07/14/16 09:56 Dose: 250 mg Spironolactone (Aldactone) 25 mg PO DAILY [facility] Last Admin: 07/14/16 09:55 Dose: 25 mg - Labs Labs: 07/14/16 07:00 07/14/16 07:00 PT 26.9 SECONDS (9.7-12.2) H D 07/14/16 07:00 INR 2.3 D 07/14/16 07:00 APTT 58 SECONDS (21-34) H 07/10/16 21:15 - Constitutional Appears: No Acute Distress - Head Exam Head Exam: NORMOCEPHALIC - Eye Exam Eye Exam: Normal appearance - Cardiovascular Exam Cardiovascular Exam: +S1, +S2 - GI/Abdominal Exam GI & Abdominal Exam: Soft. absent: Distended, Firm, Guarding, Rigid - Neurological Exam Neurological Exam: Alert, Awake, Oriented x3 - Psychiatric Exam Psychiatric exam: Normal Mood - Skin Skin Exam: Dry, Intact, Warm Assessment and Plan - Assessment and Plan (Free Text) Assessment: 71 yo M w/ CHF, AFib on coumadin, here with Pneumonia and surgery consulted for Left inguinal hernia -Hernia is easily reducible, no signs of incarceration or strangulation -Continue Medical Tx for the Pneumonia -No urgent surgical intervention -Hernia can be done electively when medical issues resolved -F/u with Dr. Fox as outpatient -Will sign off, reconsult as needed. BABS Fox
--- NOTE | 2016-07-14 11:13 | CP.PCM.CON ---
History of Present Illness - History of Present Illness History of Present Illness: Reason for consultation: Shortness of breath Patient is a 71 year old male with past medical history of a.fib, CHF, CAD, [place] ( per EMR- pt currently denies) who presents with complaint of left sided chest pain and shortness of breath. CAT scan of the chest consistent with right basilar nodular infiltrate and small loculated effusion. Patient complaining of dyspnea on exertion and slight cough. Denies fever or chills. PMHx: [place], a.fib, PVD, CHF, CAD Meds: lipitor 10mg, lasix 40mg BID, digoxin 0.125mg, coreg 12.5 BID, asa 81mg, aldactone 25mg, coumadin 5mg, labetalol 300mg BID PSH: hernia repair, pacemaker/ AICD Fam Hx: denies Social Hx: former smoker quit 1.5 years ago, denies alcohol and drugs Review of Systems - Review of Systems All systems: reviewed and no additional remarkable complaints except (Shortness of breath and slight cough) Past Patient History - Infectious Disease Hx of Infectious Diseases: None - Past Medical History & Family History Past Medical History?: Yes - Past Social History Smoking Status: Former Smoker - CARDIAC Hx Congestive Heart Failure: Yes (?) - PULMONARY Hx Emphysema: Yes - NEUROLOGICAL Hx Neurological Disorder: No - HEENT Hx HEENT Problems: No - RENAL Hx Chronic Kidney Disease: No - ENDOCRINE/METABOLIC Hx Endocrine Disorders: No - HEMATOLOGICAL/ONCOLOGICAL Hx Human Immunodeficiency Virus (HIV): No - INTEGUMENTARY Hx Dermatological Problems: No - MUSCULOSKELETAL/RHEUMATOLOGICAL Hx Falls: No - GASTROINTESTINAL Hx Gastrointestinal Disorders: No - GENITOURINARY/GYNECOLOGICAL Hx Genitourinary Disorders: No - PSYCHIATRIC Hx Substance Use: No - SURGICAL HISTORY Hx Surgeries: Yes Other/Comment: hernia repair - ANESTHESIA Hx Anesthesia: Yes Hx Anesthesia Reactions: No Meds Allergies/Adverse Reactions: Allergies Allergy/AdvReac Type Severity Reaction Status Date / Time No Known Allergies Allergy Verified 12/09/15 20:42 - Medications Medications: Current Medications Albuterol/Ipratropium (Duoneb 3 Mg/0.5 Mg (3 Ml) Ud) 3 ml INH RQ6 PRN PRN Reason: Shortness of Breath Last Admin: 07/11/16 01:34 Dose: 3 ml Aspirin (Ecotrin) 81 mg PO DAILY ASPEN Last Admin: 07/14/16 09:56 Dose: 81 mg Carvedilol (Coreg) 12.5 mg PO BID [facility] Last Admin: 07/14/16 09:55 Dose: 12.5 mg Digoxin (Lanoxin) 0.125 mg PO DAILY@1800 [facility] Last Admin: 07/13/16 17:30 Dose: 0.125 mg Furosemide (Lasix) 60 mg IVP Q12 [facility] Last Admin: 07/14/16 09:56 Dose: 60 mg Azithromycin 500 mg/ Sodium (Chloride) 250 mls @ 250 mls/hr IVPB DAILY [facility] Last Admin: 07/14/16 10:06 Dose: 250 mls/hr Ceftriaxone Sodium 1 gm/ (Sodium Chloride) 100 mls @ 200 mls/hr IVPB Q24H [facility] Last Admin: 07/13/16 12:50 Dose: 200 mls/hr Isosorbide Mononitrate (Imdur) 30 mg PO DAILY [facility] Last Admin: 07/14/16 10:40 Dose: 30 mg Lisinopril (Zestril) 10 mg PO DAILY [facility] Last Admin: 07/14/16 09:56 Dose: 10 mg Methylprednisolone (Solu-Medrol) 40 mg IVP DAILY [facility] Last Admin: 07/14/16 09:56 Dose: 40 mg Rosuvastatin Calcium (Crestor) 5 mg PO HS [facility] Last Admin: 07/13/16 21:36 Dose: 5 mg Saccharomyces Boulardii (Florastor) 250 mg PO BID [facility] Last Admin: 07/14/16 09:56 Dose: 250 mg Spironolactone (Aldactone) 25 mg PO DAILY [facility] Last Admin: 07/14/16 09:55 Dose: 25 mg Physical Exam - Constitutional Appears: No Acute Distress - Head Exam Head Exam: ATRAUMATIC, NORMOCEPHALIC - Eye Exam Eye Exam: Normal appearance - ENT Exam ENT Exam: Mucous Membranes Moist - Neck Exam Neck exam: Positive for: Normal Inspection - Respiratory Exam Respiratory Exam: Decreased Breath Sounds - Cardiovascular Exam Cardiovascular Exam: Irregular Rhythm - GI/Abdominal Exam GI & Abdominal Exam: Normal Bowel Sounds, Soft - Extremities Exam Extremities exam: Positive for: normal inspection - Neurological Exam Neurological exam: Alert, Oriented x3 Results - Vital Signs Recent Vital Signs: Last Vital Signs Temp 97.6 F 07/14/16 07:00 Pulse 73 07/14/16 10:00 Resp 20 07/14/16 07:00 BP 127/71 07/14/16 09:56 Pulse Ox 97 07/14/16 07:00 - Labs Result Diagrams: 07/14/16 07:00 07/14/16 07:00 Labs: Laboratory Results - last 24 hr 07/13/16 07/13/16 07/13/16 11:16 16:58 21:30 WBC RBC Hgb Hct MCV MCH MCHC RDW Plt Count MPV Neut % (Auto) Lymph % (Auto) [place] % (Auto) Eos % (Auto) Baso % (Auto) Neut # Lymph # [place] # Eos # Baso # Neutrophils % (Manual) Band Neutrophils % Lymphocytes % (Manual) Monocytes % (Manual) Platelet Estimate Large Platelets RBC Morphology PT INR Sodium Potassium Chloride Carbon Dioxide Anion Gap BUN Creatinine Est GFR ( Amer) Est GFR (Non-Af Amer) POC Glucose (mg/dL) 137 H 232 H 165 H Random Glucose Calcium Phosphorus Magnesium Total Bilirubin AST ALT Alkaline Phosphatase Total Protein Albumin Globulin Albumin/Globulin Ratio 07/14/16 07/14/16 06:21 07:00 WBC 13.8 H RBC 4.50 Hgb 13.0 Hct 40.1 MCV 89.2 MCH 28.8 MCHC 32.3 L RDW 14.0 Plt Count 254 MPV 9.7 Neut % (Auto) 83.9 H Lymph % (Auto) 7.2 L [place] % (Auto) 8.8 Eos % (Auto) 0.0 Baso % (Auto) 0.1 Neut # 11.5 H Lymph # 1.0 [place] # 1.2 H Eos # 0.0 Baso # 0.0 Neutrophils % (Manual) 81 H Band Neutrophils % 1 Lymphocytes % (Manual) 11 L Monocytes % (Manual) 7 Platelet Estimate Normal Large Platelets Present RBC Morphology Normal PT 26.9 H D INR 2.3 D Sodium 138 Potassium 4.1 Chloride 98 Carbon Dioxide 32 H Anion Gap 12 BUN 45 H Creatinine 0.9 Est GFR ( Amer) > 60 Est GFR (Non-Af Amer) > 60 POC Glucose (mg/dL) 102 Random Glucose 97 Calcium 7.9 L Phosphorus 3.3 Magnesium 2.3 Total Bilirubin 0.3 AST 51 ALT 46 Alkaline Phosphatase 62 Total Protein 5.8 L Albumin 3.0 L Globulin 2.8 Albumin/Globulin Ratio 1.1 Assessment & Plan (1) Pneumonia Status: Acute Comment: CAT scan of the chest consistent with multinodular infiltrate. Continue Rocephin and Zithromax. Check procalcitonin level. Patient with long history of smoking underlying COPD cannot be ruled out and continue nebulizer treatments for now (2) CHF exacerbation Status: Acute Priority: High
[2016-07-14 16:01] VITALS: PULSE 88
[2016-07-14] MEDS: Digoxin 125 mcg (0.125 mg) Tab PO SCH (17:42)
[2016-07-14 17:43] VITALS: BP 104/69; PULSE 89
[2016-07-14] MEDS ORDERED: Pneumococcal 23-Valent Vaccine SC ONE (17:45)
--- NOTE | 2016-07-14 23:55 | CP.PCM.DIS ---
Provider - Provider Date of Admission: 07/10/16 23:30 Attending physician: Warren Gonzalez Jr, MD Time Spent in preparation of Discharge (in minutes): 39 Hospital Course - Lab Results Lab Results: Most Recent Lab Values WBC 13.8 K/uL (4.8-10.8) H 07/14/16 07:00 RBC 4.50 Mil/uL (4.40-5.90) 07/14/16 07:00 Hgb 13.0 g/dL (12.0-18.0) 07/14/16 07:00 Hct 40.1 % (35.0-51.0) 07/14/16 07:00 MCV 89.2 fL (80.0-94.0) 07/14/16 07:00 MCH 28.8 pg (27.0-31.0) 07/14/16 07:00 MCHC 32.3 g/dL (33.0-37.0) L 07/14/16 07:00 RDW 14.0 % (11.5-14.5) 07/14/16 07:00 Plt Count 254 K/uL (130-400) 07/14/16 07:00 MPV 9.7 fL (7.2-11.7) 07/14/16 07:00 Neut % (Auto) 83.9 % (50.0-75.0) H 07/14/16 07:00 Lymph % (Auto) 7.2 % (20.0-40.0) L 07/14/16 07:00 [place] % (Auto) 8.8 % (0.0-10.0) 07/14/16 07:00 Eos % (Auto) 0.0 % (0.0-4.0) 07/14/16 07:00 Baso % (Auto) 0.1 % (0.0-2.0) 07/14/16 07:00 Neut # 11.5 K/uL (1.8-7.0) H 07/14/16 07:00 Lymph # 1.0 K/uL (1.0-4.3) 07/14/16 07:00 [place] # 1.2 K/uL (0.0-0.8) H 07/14/16 07:00 Eos # 0.0 K/uL (0.0-0.7) 07/14/16 07:00 Baso # 0.0 K/uL (0.0-0.2) 07/14/16 07:00 Neutrophils % (Manual) 81 % (50-75) H 07/14/16 07:00 Band Neutrophils % 1 % (0-2) 07/14/16 07:00 Lymphocytes % (Manual) 11 % (20-40) L 07/14/16 07:00 Reactive Lymphs % 1 % (0-0) H 07/13/16 08:06 Monocytes % (Manual) 7 % (0-10) 07/14/16 07:00 Eosinophils % (Manual) 1 % (0-4) 07/10/16 21:15 Platelet Estimate Normal (NORMAL) 07/14/16 07:00 Large Platelets Present 07/14/16 07:00 RBC Morphology Normal 07/14/16 07:00 Microcytosis (manual) Slight 07/10/16 21:15 Ovalocytes Slight 07/13/16 08:06 PT 26.9 SECONDS (9.7-12.2) H D 07/14/16 07:00 INR 2.3 D 07/14/16 07:00 APTT 58 SECONDS (21-34) H 07/10/16 21:15 Sodium 138 mmol/L (132-148) 07/14/16 07:00 Potassium 4.1 mmol/L (3.6-5.2) 07/14/16 07:00 Chloride 98 mmol/L (98-107) 07/14/16 07:00 Carbon Dioxide 32 mmol/L (22-30) H 07/14/16 07:00 Anion Gap 12 (10-20) 07/14/16 07:00 BUN 45 mg/dL (9-20) H 07/14/16 07:00 Creatinine 0.9 MG/DL (0.8-1.5) 07/14/16 07:00 Est GFR ( Amer) > 60 07/14/16 07:00 Est GFR (Non-Af Amer) > 60 07/14/16 07:00 POC Glucose (mg/dL) 213 mg/dL (65-110) H 07/14/16 16:36 Random Glucose 97 mg/dL (75-110) 07/14/16 07:00 Hemoglobin A1c 6.3 % (4.2-6.5) 07/11/16 07:37 Calcium 7.9 mg/dl (8.6-10.4) L 07/14/16 07:00 Phosphorus 3.3 mg/dL (2.5-4.5) 07/14/16 07:00 Magnesium 2.3 mg/dL (1.6-2.3) 07/14/16 07:00 Total Bilirubin 0.3 mg/dL (0.2-1.3) 07/14/16 07:00 AST 51 U/L (17-59) 07/14/16 07:00 ALT 46 U/L (21-72) 07/14/16 07:00 Alkaline Phosphatase 62 U/L (38-126) 07/14/16 07:00 Total Creatine Kinase 91 U/L (55-170) 07/11/16 11:12 CK-MB (Mass) 2.65 ng/mL (0.0-3.38) 07/11/16 11:12 Troponin I 0.1060 ng/mL (0.00-0.120) 07/10/16 21:15 Troponin I, Quant 0.0860 ng/mL (0.00-0.120) 07/11/16 11:12 NT-Pro-B Natriuret Pep 7850 pg/mL (0-900) H 07/10/16 22:08 Total Protein 5.8 g/dL (6.3-8.3) L 07/14/16 07:00 Albumin 3.0 g/dL (3.5-5.0) L 07/14/16 07:00 Globulin 2.8 gm/dL (2.2-3.9) 07/14/16 07:00 Albumin/Globulin Ratio 1.1 (1.0-2.1) 07/14/16 07:00 Triglycerides 76 mg/dL (0-149) 07/10/16 21:15 Cholesterol 165 mg/dL (0-199) 07/10/16 21:15 LDL Cholesterol Direct 91 mg/dL (0-129) 07/10/16 21:15 HDL Cholesterol 49 mg/dL (30-70) 07/10/16 21:15 Procalcitonin 0.09 NG/ML (0.19-0.49) L 07/14/16 11:48 Thyroxine (T4) 5.55 ug/dL (5.5-11.0) 07/11/16 07:37 TSH 3rd Generation 0.23 mIU/L (0.46-4.68) L 07/11/16 07:37 Digoxin < 0.4 ng/mL (0.8-2.0) L 07/11/16 00:38 Mycoplasma pneumon IgG 2.47 (<=0.90) H 07/12/16 14:24 Mycoplasma pneumon IgM 39 U/mL (<770) 07/12/16 14:24 - Hospital Course Hospital Course: HPI: Patient is a 71 year old male with past medical history of a.fib, CHF, CAD , [place] (per EMR- pt currently denies) who presented with complaints of left sided chest pain that started this morning. Patient was brought to the ED by ambulance who gave the patient 324mg of aspirin. Patient did not receive any nitroglycerin in the field or the ER. EKG with LBBB, present on prior EKG. Hospital Course: Pt was admitted for pneumonia and CHF exacerbation. Chest CT revealed mediastinal lymphadenopathy, no evidence of large or central pulmonary embolism, multifocal airspace opacities in left upper lobe and lingula most compatible with multifocal pneumonia; loculated small effusion (please see full report). Pt was afebrile, nontachycardic. Pt was started on azithromycin and rocephin. Procalcitonin was 0.4. Pro-BNP was 7850. Cardiology, Dr. Cruz, was consulted. Troponins x 2 were 0.1080, 0.0860, respectively. EKG revealed dual paced rhythm with occasional PVCs; abnormal EKG (please see full report). CXR with venous congestion bilaterally, left greater than right (please see full report). Echocardiogram revealed an EF 40-45%, mild pulmonary HTN, trace mitral regurgitation (please see full report). Pt was started on coreg, aldactone, zestril, and digoxin. Pt was also started on imdur. Pt was started on cerstor and aspirin for hx of coronary artery disease. Pt was also started on coumadin for his hx of atrial fibrillation with daily coagulation studies. Discharge Exam - Head Exam Head Exam: NORMOCEPHALIC - Eye Exam Eye Exam: EOMI, PERRL - ENT Exam ENT Exam: Mucous Membranes Moist - Neck Exam Neck exam: Full Rom - Respiratory Exam Respiratory Exam: Clear to PA & Lateral. absent: Rhonchi, Wheezes - Cardiovascular Exam Cardiovascular Exam: +S1, +S2. absent: Gallop, Rubs - GI/Abdominal Exam GI & Abdominal Exam: Hernia, Soft. absent: Distended, Guarding Additional comments: Left inguinal hernia - Extremities Exam Extremities exam: full ROM - Neurological Exam Neurological exam: Alert, Oriented x3 - Psychiatric Exam Psychiatric exam: Normal Affect, Normal Mood - Skin Skin Exam: Normal Color, Warm Discharge Plan - Discharge Medications Prescriptions: Spironolactone [Aldactone] 25 mg PO DAILY #30 tablet Carvedilol [Coreg] 12.5 mg PO BID #60 tab Aspirin [Ecotrin] 81 mg PO DAILY #30 tabec Digoxin [Lanoxin] 0.125 mg PO DAILY #30 tab Furosemide [Lasix] 40 mg PO BID #60 tab Levofloxacin [Levaquin] 750 mg PO DAILY #5 tablet - Follow Up Plan Condition: FAIR Disposition: HOME/ ROUTINE Patient education suggested?: Yes Instructions: Warfarin (By mouth), Coronary Artery Disease (DC), Atrial Fibrillation (DC), Heart Healthy Diet (DC), Vitamin K in Foods (DC), Hypertension (DC) Additional Instructions: Please schedule an appointment and follow up within one week with the following doctors: [facility], Dr. Thompson, Fitness Coach, Dr. Maddox, and primary medical doctor, Dr. Gonzalez. Please take new medications as prescribed: aspirin, spirinolactone, carvedilol, warfarin, digoxin, lasix, lipitor, and levaquin. Do not take prior home medications. It is very important to follow up with the appropriate doctors and get INR checked as well. Please return to the hospital if symptoms worsen or new symptoms arise. Referrals: Atif Casiano MD [Staff Provider] - Benito Thompson MD [Staff Provider] - Corey Maddox MD [Staff Provider] - Warren Gonzalez Jr., MD [Medical Doctor] - Clinical Quality Measures - CQM - Heart Failure Ejection Fraction: 40 % or Greater Left Ventricular Function to be assessed after discharge: Yes DIDIER Inhibitor Prescribed: Yes Beta-Harley Prescribed: Carvedilol Angiotensin II Receptor Harley Prescribed: No Contraindication/Reason for not providing: on DIDIER inhibitor AnticoagulationTherapy for Atrial Fibrillation/Atrialflutter: Yes Aldosterone Antagonist Prescribed: Yes Hydralazine Nitrate Prescribed: No Contraindication/Reason for not providing: on DIDIER-I
[2016-07-15 16:53] VITALS: O2SAT 95
== END 2016-07-14 18:35 | disposition home or self-care (01) | DRG 291 ==
LOC: C.ER 20:49 → C.9E 23:30 → C.5T 07-11 00:26 → C.6T 07-13 22:38
PROVIDERS: ADMIT Internal Medicine; ATTEND Internal Medicine
DX: I11.0 Hypertensive heart disease with heart failure (principal); J18.9 Pneumonia, unspecified organism; I48.2 Chronic atrial fibrillation; J43.9 Emphysema, unspecified; I44.7 Left bundle-branch block, unspecified; I25.5 Ischemic cardiomyopathy; Z79.01 Long term (current) use of anticoagulants; I50.9 Heart failure, unspecified; K40.90 Unilateral inguinal hernia, without obstruction or gangrene, not specified as recurrent; Z95.810 Presence of automatic (implantable) cardiac defibrillator; Z87.891 Personal history of nicotine dependence

== ENCOUNTER 2016-07-19 22:55 | Inpatient (IN) | payer MEDICARE ==
[2016-07-20 00:34] LABS: BASO # 0.1 K/uL (0.0-0.2); BASO % 0.6 % (0.0-2.0); EOS # 0.4 K/uL (0.0-0.7); EOS % 3.1 % (0.0-4.0); HEMATOCRIT 39.1 % (35.0-51.0); LYMPH # 1.4 K/uL (1.0-4.3); LYMPH % 12.1 % (20.0-40.0); MEAN CELL VOLUME 90.2 fL (80.0-94.0); MEAN CORPUSCULAR HGB CONC 31.1 g/dL (33.0-37.0); MEAN PLATELET VOLUME 9.4 fL (7.2-11.7); MONO # 1.4 K/uL (0.0-0.8); RED CELL DISTRIBUTION WIDTH 14.1 % (11.5-14.5); WHITE BLOOD COUNT 11.9 K/uL (4.8-10.8)
[2016-07-20 00:42] LABS: INR 5.7
[2016-07-20 00:55] LABS: CHLORIDE 105 mmol/L (98-107); POTASSIUM 4.9 mmol/L (3.6-5.2); SODIUM 144 mmol/L (132-148)
[2016-07-20 00:57] LABS: BILIRUBIN,TOTAL 0.2 mg/dL (0.2-1.3); GFR AFRICAN-AMERICAN > 60
[2016-07-20 00:58] LABS: ALB/GLOB RATIO 1.1 (1.0-2.1); ALKALINE PHOSPHATASE 56 U/L (38-126); ALT/SGPT 43 U/L (21-72); AST/SGOT 34 U/L (17-59); BLOOD UREA NITROGEN 29 mg/dL (9-20); CALCIUM 7.9 mg/dl (8.6-10.4); CARBON DIOXIDE 32 mmol/L (22-30); GLUCOSE,RANDOM 87 mg/dL (75-110); TOTAL PROTEIN 5.8 g/dL (6.3-8.3)
--- NOTE | 2016-07-20 01:13 | C.PDOC ---
Time Seen by Provider: 07/19/16 23:23 Chief Complaint (Nursing): Chest Pain History Per: Patient, EMS Onset/Duration Of Symptoms: Hrs Current Symptoms Are (Timing): Still Present Severity: Moderate Quality: "Pain" Associated Symptoms: Dyspnea Modifying Factors: Other Indicated Below Alleviating Factors: None Additional History Per: Prior Records Past Medical History Reviewed: Historical Data, Nursing Documentation, Vital Signs Vital Signs: Last Vital Signs Temp 97.8 F 07/19/16 23:02 Pulse 84 07/20/16 00:23 Resp 18 07/19/16 23:02 BP 133/93 H 07/19/16 23:02 Pulse Ox 100 07/20/16 01:15 - Medical History PMH: Atrial Fibrillation, CHF, Emphysema Surgical History: Hernia Repair, Pacemaker Family History: States: Unknown Family Hx - Social History Hx Alcohol Use: No Hx Substance Use: No - Immunization History Hx Tetanus Toxoid Vaccination: No Hx Influenza Vaccination: No Hx Pneumococcal Vaccination: No Review Of Systems Except As Marked, All Systems Reviewed And Found Negative. Constitutional: Positive for: Malaise Cardiovascular: Positive for: Chest Pain Respiratory: Positive for: Cough, Shortness of Breath. Negative for: Hemoptysis Gastrointestinal: Negative for: Vomiting, Abdominal Pain Musculoskeletal: Negative for: Neck Pain, Back Pain Skin: Negative for: Rash Neurological: Negative for: Weakness, Numbness, Seizures, Altered Mental Status Physical Exam - Physical Exam Appears: No Acute Distress, Chronically Ill Skin: Normal Color, Warm, Dry Head: Atraumatic Eye(s): bilateral: PERRL, EOMI Neck: Normal ROM, Supple Cardiovascular: Rhythm Regular Respiratory: Decreased Breath Sounds (left lower), No Accessory Muscle Use Gastrointestinal/Abdominal: Soft, No Tenderness Back: No CVA Tenderness Extremity: Normal ROM Neurological/Psych: Oriented x3, Normal Motor, Normal Sensation ED Course And Treatment - Laboratory Results Result Diagrams: 07/20/16 00:27 07/20/16 00:27 Lab Interpretation: Abnormal Interpretation Of Abnormal: Positive Troponin level. Supratheraputic INR. ECG: Interpreted By Me, Viewed By Me ECG Rhythm: V Paced, PVC, Nonspecific Changes ECG Interpretation: Abnormal Rate From EC O2 Sat by Pulse Oximetry: 100 (On [place].) - Radiology CXR: Interpreted by Me, Viewed By Me CXR Interpretation: Yes: Infiltrates (left mid/lower), Cardiomegaly Progress - Interventions Interventions:: Observation, Oxygen - Medications Administered Oral: Aspirin - Data Reviewed Data Reviewed: Lab, Diagnostic imaging, EKG, Old records - Patient Status Patient status: Partially improved - Continuity of Care Discussed patient case with:: Patient, ED Nurse, PMD - Patient Plan Patient Plan: Admission, Telemetry Disposition Discussed With : Warren Gonzalez Jr. Comment: He accepted pt on his service. Doctor Will See Patient In The: Hospital Counseled Patient/Family Regarding: Studies Performed, Diagnosis - Disposition Disposition: HOSPITALIZED Disposition Time: 01:30 Condition: GUARDED - Clinical Impression Clinical Impression: Chest pain, Supratherapeutic INR, Troponin I above reference range
--- NOTE | 2016-07-20 04:43 | CP.PCM.HP ---
History of Present Illness - History of Present Illness History of Present Illness: Patient presents to the ER with complaint of left sided chest discomfort that began a few hours prior to arrival in the ER. Patient describes the pain as a sharp pressure initially but it has since resolved. Patient also admits to feeling generally unwell but cannot be more specific other than he still complains of cough and shortness of breath. Patient states he has been compliant with medications however he did not finish his antibiotic. Patient was discharged with Levaquin but the patient states the pills were too big and he had trouble swallowing them so he did not finish the prescription. Patient denies headaches, fevers, chills, dizziness, palpitations, nausea, vomiting, diaphoresis. Patient states he is able to eat normally and denies symptoms of dysuria or diarrhea. Patient currently resting comfortably in bed. PMD: Dr. Taran Cool PMHx: [place], chrisfib, PVD, CHF, CAD Meds: Coumadin 5mg, aldactone 25mg daily, lasix 40mg BID, digoxin 0.125 daily, coreg 12.5 BID, lipitor 10mg, aspirin 81mg PSH: hernia repair, pacemaker/ AICD Fam Hx: denies Social Hx: former smoker quit 1.5 years ago, denies alcohol and drugs Present on Admission - Present on Admission Any Indicators Present on Admission: No Review of Systems - Constitutional Constitutional: Chills, Lethargy. absent: Fever - EENT Nose/Mouth/Throat: Nasal Congestion - Cardiovascular Cardiovascular: Chest Pain, Dyspnea. absent: Diaphoresis, Leg Edema - Respiratory Respiratory: Cough, Dyspnea. absent: Excessive Mucous Production - Gastrointestinal Gastrointestinal: absent: Abdominal Pain, Nausea, Vomiting - Genitourinary Genitourinary: absent: Difficulty Urinating, Dysuria - Musculoskeletal Musculoskeletal: absent: Back Pain - Integumentary Integumentary: absent: Rash - Neurological Neurological: absent: Dizziness, Focal Weakness Past Patient History - Infectious Disease Hx of Infectious Diseases: None - Past Medical History & Family History Past Medical History?: Yes - Past Social History Smoking Status: Former Smoker - CARDIAC Hx Atrial Fibrillation: Yes Hx Congestive Heart Failure: Yes Hx Pacemaker: Yes - PULMONARY Hx Emphysema: Yes - NEUROLOGICAL Hx Neurological Disorder: No - HEENT Hx HEENT Problems: No - RENAL Hx Chronic Kidney Disease: No - ENDOCRINE/METABOLIC Hx Endocrine Disorders: No - HEMATOLOGICAL/ONCOLOGICAL Hx Human Immunodeficiency Virus (HIV): No - INTEGUMENTARY Hx Dermatological Problems: No - MUSCULOSKELETAL/RHEUMATOLOGICAL Hx Falls: No - GASTROINTESTINAL Hx Gastrointestinal Disorders: No - GENITOURINARY/GYNECOLOGICAL Hx Genitourinary Disorders: No - PSYCHIATRIC Hx Substance Use: No - SURGICAL HISTORY Hx Surgeries: Yes Other/Comment: hernia repair - ANESTHESIA Hx Anesthesia: Yes Hx Anesthesia Reactions: No Meds Allergies/Adverse Reactions: Allergies Allergy/AdvReac Type Severity Reaction Status Date / Time No Known Allergies Allergy Verified 07/19/16 23:06 Physical Exam - Constitutional Appears: Non-toxic, No Acute Distress - Head Exam Head Exam: ATRAUMATIC, NORMOCEPHALIC - Eye Exam Eye Exam: EOMI - ENT Exam ENT Exam: Mucous Membranes Moist - Respiratory Exam Respiratory Exam: Decreased Breath Sounds. absent: Chest Wall Tenderness, Rhonchi, Wheezes - Cardiovascular Exam Cardiovascular Exam: +S1, +S2 - GI/Abdominal Exam GI & Abdominal Exam: Normal Bowel Sounds, Soft. absent: Distended, Firm, Tenderness - Extremities Exam Extremities exam: Positive for: normal inspection. Negative for: calf tenderness, pedal edema - Neurological Exam Neurological exam: Alert - Psychiatric Exam Psychiatric exam: Normal Affect - Skin Skin Exam: Normal Color, Warm Results - Vital Signs Recent Vital Signs: Last Vital Signs Temp 98 F 07/20/16 02:30 Pulse 88 07/20/16 02:30 Resp 16 07/20/16 02:30 BP 147/84 07/20/16 02:30 Pulse Ox 100 07/20/16 02:30 - Labs Result Diagrams: 07/20/16 00:27 07/20/16 00:27 Assessment & Plan - Assessment and Plan (Free Text) Assessment: 1. Chest pain, r/o ACS troponin on admission 0.1310 will continue to trend troponin Dr. Cruz consulted, help appreciated keep NPO in case stress test necessary 2. Pneumonia Patient did not finish outpatient antibiotics start ceftriaxone and azithromycin f/u blood cultures 3. CHF continue home medication aldactone 25mg daily continue digoxin continue coreg 12.5 BID 4. A. fib rate controlled hold coumadin as INR 5.7 5. CAD continue aspirin 81mg daily 6. Prophylactic measure SCDs holding chemical anticoagulation due to supratherapeutic INR
[2016-07-20] MEDS ORDERED: Azithromycin 500mg/250ML NS 250 ML IVPB SCH (06:30)
[2016-07-20] MEDS ORDERED: Azithromycin 500mg/250ML NS 250 ML IVPB ONE (06:55)
--- NOTE | 2016-07-20 08:44 | RAD ---
PROCEDURE: CHEST RADIOGRAPH, 1 VIEW HISTORY: SOB, Chest pain COMPARISON: 07/10/2016 FINDINGS: LUNGS: Moderate to severe venous congestion with prominent bibasilar airspace opacities as well as small bilateral pleural effusions ; left greater than right. Left midlung atelectasis. Upper lobe granulomatous changes. Right paratracheal prominence may represent prominent vasculature. Bilateral hilar prominence. PLEURA: As above. CARDIOVASCULAR: Cardiomegaly. Left-sided pacemaker. OSSEOUS STRUCTURES: Degenerative changes in the spine and shoulders. VISUALIZED UPPER ABDOMEN: Normal. OTHER FINDINGS: None. IMPRESSION: Moderate to severe venous congestion with prominent bibasilar airspace opacities as well as small bilateral pleural effusions ; left greater than right. Left midlung atelectasis. Upper lobe granulomatous changes. Right paratracheal prominence may represent prominent vasculature. Bilateral hilar prominence.
[2016-07-20] MEDS: Pantoprazole 40 mg EC Tab PO SCH (13:46)
[2016-07-20] MEDS: cefTRIAXone IV 1 gm in Dextros 50 ML IVPB SCH (13:46)
--- NOTE | 2016-07-20 16:51 | CP.PCM.CON ---
History of Present Illness - History of Present Illness History of Present Illness: I was asked to see patient by Dr. Gonzalez. Patient is a 71 year old male with history of CAD s/p CABG, ischemic cardomyopathy s/p AICD and afib who presents with coumadin. The patient had a recent hospitalization for pneumonia, and was treated with antibiotics. The patient reports left sided chest pain and central chest pressure. The patient states symptoms are progressive. Review of Systems - Constitutional Constitutional: absent: As Per HPI, Anorexia, Chills, Daytime Sleepiness, Excessive Sweating, Fatigue, Fever, Frequent Falls, Headache, Increased Appetite , Lethargy, Malaise, Night Sweats, Snoring, Sleep Apnea, Weight Gain, Weight Loss, Weakness, Other - EENT Eyes: absent: As Per HPI, Blind Spots, Blurred Vision, Change in Vision, Decreased Night Vision, Diplopia, Discharge, Dry Eye, Exophthalmos, Floaters, Irritation, Itchy Eyes, Loss of Peripheral Vision, Pain, Photophobia, Requires Corrective Lenses, Sees Flashes, Spots in Vision, Tunnel Vision, Other Visual Disturbances, Loss of Vision, Other Ears: absent: As Per HPI, Decreased Hearing, Ear Discharge, Ear Pain, Tinnitus, Abnormal Hearing, Disequilibrium, Dizziness, Other Nose/Mouth/Throat: absent: As Per HPI, Epistaxis, Nasal Congestion, Nasal Discharge, Nasal Obstruction, Nasal Trauma, Nose Pain, Post Nasal Drip, Sinus Pain, Sinus Pressure, Bleeding Gums, Change in Voice, Dental Pain, Dry Mouth, Dysphagia, Halitosis, Hoarsness, Lip Swelling, Mouth Lesions, Mouth Pain, Odynophagia, Sore Throat, Throat Swelling, Tongue Swelling, Facial Pain, Neck Pain, Neck Mass, Other - Cardiovascular Cardiovascular: Chest Pain - Respiratory Respiratory: absent: As Per HPI, Cough, Dyspnea, Hemoptysis, Dyspnea on Exertion , Wheezing, Snoring, Stridor, Pain on Inspiration, Chest Congestion, Excessive Mucous Production, Change in Mucous Color, Pain with Coughing, Other - Gastrointestinal Gastrointestinal: absent: As Per HPI, Abdominal Pain, Belching, Bloating, Change in Bowel Habits, Change in Stool Character, Coffee Ground Emesis, Constipation, Cramping, Diarrhea, Dyspepsia, Dysphagia, Early Satiety, Excessive Flatus, Fecal Incontinence, Heartburn, Hematemesis, Hematochezia, Loose Stools, Melena, Nausea, Odynophagia, Temesmus, Vomiting, Other - Genitourinary Genitourinary: absent: As Per HPI, Change in Urinary Stream, Difficulty Urinating, Dysuria, Flank Pain, Hematuria, Pyuria, Nocturia, Urinary Incontinence, Urinary Frequency, Urinary Hesitance, Urinary Urgency, Voiding Freq/Small Amts, Freq UTI, Hx Renal/Bladder Calculi, Hx /Renal Surgery, Bladder Distension, Other - Musculoskeletal Musculoskeletal: absent: As Per HPI, Abnormal Gait, Arthralgias, Atrophy, Back Pain, Deformity, Joint Swelling, Limited Range of Motion, Loss of Height, Muscle Cramps, Muscle Weakness, Myalgias, Neck Pain, Numbness, Radiating Pain into Limb, Stiffness, Tingling, Other - Integumentary Integumentary: absent: As Per HPI, Acne, Alopecia, Bleeding Lesions, Change in Hair, Change in Nails, Change in Pigmentation, Changing Lesions, Dry Skin, Erythema, Furuncle, Hirsutism, Lesions, New Lesions, Non-Healing Lesions, Photosensitivity, Pruritus, Rash, Skin Pain, Skin Ulcer, Sores, Striae, Swelling , Unusual Bruising, Wounds, Jaundice, Other - Neurological Neurological: absent: As Per HPI, Abnormal Gait, Abnormal Hearing, Abnormal Movements, Abnormal Speech, Behavioral Changes, Burning Sensations, Confusion, Convulsions, Disequilibrium, Dizziness, Numbness, Focal Weakness, Frequent Falls , Headaches, Lack of Coordination, Loss of Vision, Memory Loss, Paresthesias, Radicular Pain, Restless Legs, Sensory Deficit, Syncope, Tingling, Tremor, Vertigo, Weakness, Other Visual Disturbances, Other - Psychiatric Psychiatric: absent: As Per HPI, Abnormal Sleep Pattern, Anhedonia, Anxiety, Auditory Hallucinations, Behavioral Changes, Change in Appetite, Change in Libido, Confusion, Depression, Difficulty Concentrating, Hallucinations, Homicidal Ideation, Hopelessness, Irritability, Memory Loss, Mood Swings, Panic Attacks, Paranoia, Suicidal Ideation, Visual Hallucinations, Tactile Hallucinations, Other - Endocrine Endocrine: absent: As Per HPI, Change in Body Appearance, Change in Libido, Cold Intolorance, Deepening of Voice, Excessive Sweating, Fatigue, Flushing, Heat Intolorance, Increase in Ring/Shoe/Hat Size, Palpitations, Polydipsia, Polyphagia, Polyuria, Other - Hematologic/Lymphatic Hematologic: absent: As Per HPI, Easy Bleeding, Easy Bruising, Lymphadenopathy, Other Past Patient History - Infectious Disease Hx of Infectious Diseases: None - Past Medical History & Family History Past Medical History?: No - Past Social History Smoking Status: Former Smoker - CARDIAC Hx Atrial Fibrillation: Yes Hx Congestive Heart Failure: Yes Hx Pacemaker: Yes - PULMONARY Hx Respiratory Disorders: Yes Hx Emphysema: Yes - NEUROLOGICAL Hx Neurological Disorder: No - HEENT Hx HEENT Problems: No - RENAL Hx Chronic Kidney Disease: No - ENDOCRINE/METABOLIC Hx Endocrine Disorders: No - HEMATOLOGICAL/ONCOLOGICAL Hx Blood Disorders: No Hx Human Immunodeficiency Virus (HIV): No - INTEGUMENTARY Hx Dermatological Problems: No - MUSCULOSKELETAL/RHEUMATOLOGICAL Hx Musculoskeletal Disorders: No Hx Falls: No - GASTROINTESTINAL Hx Gastrointestinal Disorders: No - GENITOURINARY/GYNECOLOGICAL Hx Genitourinary Disorders: No - PSYCHIATRIC Hx Psychophysiologic Disorder: No Hx Substance Use: No - SURGICAL HISTORY Hx Surgeries: Yes Other/Comment: hernia repair - ANESTHESIA Hx Anesthesia: Yes Hx Anesthesia Reactions: No Meds Allergies/Adverse Reactions: Allergies Allergy/AdvReac Type Severity Reaction Status Date / Time No Known Allergies Allergy Verified 07/19/16 23:06 - Medications Medications: Current Medications Aspirin (Ecotrin) 81 mg PO DAILY [facility] Last Admin: 07/20/16 13:45 Dose: 81 mg Carvedilol (Coreg) 12.5 mg PO BID [facility] Last Admin: 07/20/16 13:46 Dose: 12.5 mg Digoxin (Lanoxin) 0.125 mg PO DAILY@1800 [facility] Furosemide (Lasix) 40 mg PO BID [facility] Last Admin: 07/20/16 13:45 Dose: 40 mg Ceftriaxone Sodium (Rocephin Iv 1 Gm Duplex) 50 mls @ 100 mls/hr IVPB DAILY [facility] Last Admin: 07/20/16 13:46 Dose: Not Given Azithromycin 500 mg/ Sodium (Chloride) 250 mls @ 167 mls/hr IVPB Q24H [facility] Pantoprazole Sodium (Protonix Ec Tab) 40 mg PO DAILY [facility] Last Admin: 07/20/16 13:46 Dose: 40 mg Rosuvastatin Calcium (Crestor) 5 mg PO HS [facility] Spironolactone (Aldactone) 25 mg PO DAILY [facility] Last Admin: 07/20/16 13:45 Dose: 25 mg Physical Exam - Constitutional Appears: Non-toxic - Head Exam Head Exam: NORMAL INSPECTION - Eye Exam Eye Exam: Normal appearance - ENT Exam ENT Exam: Mucous Membranes Moist - Neck Exam Neck exam: Positive for: Full Rom - Respiratory Exam Respiratory Exam: Decreased Breath Sounds - Cardiovascular Exam Cardiovascular Exam: Irregular Rhythm - GI/Abdominal Exam GI & Abdominal Exam: Normal Bowel Sounds - Rectal Exam Rectal Exam: Deferred - Extremities Exam Extremities exam: Negative for: pedal edema - Back Exam Back exam: NORMAL INSPECTION - Neurological Exam Neurological exam: Alert, Oriented x3 - Psychiatric Exam Psychiatric exam: Normal Affect - Skin Skin Exam: Normal Color Results - Vital Signs Recent Vital Signs: Last Vital Signs Temp 9736 F H 07/20/16 14:15 Pulse 91 H 07/20/16 14:55 Resp 18 07/20/16 14:15 BP 147/86 07/20/16 14:15 Pulse Ox 96 07/20/16 14:27 - Labs Result Diagrams: 07/20/16 00:27 07/20/16 00:27 Labs: Laboratory Results - last 24 hr 07/20/16 07/20/16 06:38 13:44 Total Creatine Kinase 52 L 59 CK-MB (Mass) 3.41 H 3.66 H Troponin I, Quant 0.1450 H* - EKG Data EKG Interpreted by: Myself Assessment & Plan (1) Chest pain Assessment and Plan: given history of chest pain, will schedule stress test. Status: Acute Priority: High (2) CAD (coronary artery disease) Assessment and Plan: for stress test Status: Acute (3) Chronic atrial fibrillation Assessment and Plan: rate control. maintain INR 2-3. Status: Acute (4) HTN (hypertension) Assessment and Plan: blood pressure control Status: Acute
--- NOTE | 2016-07-20 16:55 | CP.PCM.PN ---
Subjective - Date & Time of Evaluation Date of Evaluation: 07/20/16 Time of Evaluation: 16:50 - Subjective Subjective: stress test performed. infarction without ischemia of the inferolateral wall of the left ventricle. Severe LV dysfunction, EF 10-15%. Objective - Vital Signs/Intake and Output Vital Signs (last 24 hours): Temp Pulse Resp BP Pulse Ox 9736 F H 91 H 18 147/86 96 07/20/16 14:15 07/20/16 14:55 07/20/16 14:15 07/20/16 14:15 07/20/16 14:27 - Medications Medications: Current Medications Aspirin (Ecotrin) 81 mg PO DAILY [facility] Last Admin: 07/20/16 13:45 Dose: 81 mg Carvedilol (Coreg) 12.5 mg PO BID [facility] Last Admin: 07/20/16 13:46 Dose: 12.5 mg Digoxin (Lanoxin) 0.125 mg PO DAILY@1800 [facility] Furosemide (Lasix) 40 mg PO BID [facility] Last Admin: 07/20/16 13:45 Dose: 40 mg Ceftriaxone Sodium (Rocephin Iv 1 Gm Duplex) 50 mls @ 100 mls/hr IVPB DAILY [facility] Last Admin: 07/20/16 13:46 Dose: Not Given Azithromycin 500 mg/ Sodium (Chloride) 250 mls @ 167 mls/hr IVPB Q24H [facility] Pantoprazole Sodium (Protonix Ec Tab) 40 mg PO DAILY [facility] Last Admin: 07/20/16 13:46 Dose: 40 mg Rosuvastatin Calcium (Crestor) 5 mg PO HS [facility] Spironolactone (Aldactone) 25 mg PO DAILY [facility] Last Admin: 07/20/16 13:45 Dose: 25 mg - Labs Labs: PT 68.2 SECONDS (9.7-12.2) H* 07/20/16 00:27 INR 5.7 07/20/16 00:27 APTT 46 SECONDS (21-34) H 07/20/16 00:27 Assessment and Plan (1) Chest pain Status: Acute (2) CAD (coronary artery disease) Status: Acute (3) Chronic atrial fibrillation Status: Acute (4) HTN (hypertension) Status: Acute
[2016-07-20 17:20] VITALS: RESP 20
[2016-07-20] MEDS: Digoxin 125 mcg (0.125 mg) Tab PO SCH (17:28)
--- NOTE | 2016-07-20 23:26 | CP.PCM.PN ---
<Justin Batres - Last Filed: 07/21/16 01:05> Subjective - Date & Time of Evaluation Date of Evaluation: 07/20/16 Time of Evaluation: 09:54 - Subjective Subjective: Pt seen and examined. Pt reports that he has some discomfort in his chest, but it has improved since yesterday. Pt complaining of slight shortness of breath. Pt denies fever, chills, nausea, and vomiting. Objective - Vital Signs/Intake and Output Vital Signs (last 24 hours): Temp Pulse Resp BP Pulse Ox 97.4 F L 77 20 150/88 98 07/20/16 16:00 07/20/16 22:07 07/20/16 22:07 07/20/16 22:11 07/20/16 22:07 - Medications Medications: Current Medications Aspirin (Ecotrin) 81 mg PO DAILY [facility] Last Admin: 07/20/16 13:45 Dose: 81 mg Carvedilol (Coreg) 12.5 mg PO BID [facility] Last Admin: 07/20/16 22:11 Dose: 12.5 mg Digoxin (Lanoxin) 0.125 mg PO DAILY@1800 [facility] Last Admin: 07/20/16 17:28 Dose: 0.125 mg Furosemide (Lasix) 40 mg PO BID [facility] Last Admin: 07/20/16 22:10 Dose: 40 mg Ceftriaxone Sodium (Rocephin Iv 1 Gm Duplex) 50 mls @ 100 mls/hr IVPB DAILY [facility] Last Admin: 07/20/16 13:46 Dose: Not Given Azithromycin 500 mg/ Sodium (Chloride) 250 mls @ 167 mls/hr IVPB Q24H [facility] Pantoprazole Sodium (Protonix Ec Tab) 40 mg PO DAILY [facility] Last Admin: 07/20/16 13:46 Dose: 40 mg Rosuvastatin Calcium (Crestor) 5 mg PO HS [facility] Last Admin: 07/20/16 22:10 Dose: 5 mg Spironolactone (Aldactone) 25 mg PO DAILY [facility] Last Admin: 07/20/16 13:45 Dose: 25 mg - Labs Labs: PT 68.2 SECONDS (9.7-12.2) H* 07/20/16 00:27 INR 5.7 07/20/16 00:27 APTT 46 SECONDS (21-34) H 07/20/16 00:27 - Constitutional Appears: No Acute Distress, Unkempt - Head Exam Head Exam: ATRAUMATIC, NORMOCEPHALIC - Eye Exam Eye Exam: EOMI, PERRL - Neck Exam Neck Exam: Full ROM. absent: Lymphadenopathy - Respiratory Exam Respiratory Exam: Decreased Breath Sounds - Cardiovascular Exam Cardiovascular Exam: +S1, +S2 - GI/Abdominal Exam GI & Abdominal Exam: Soft, Hernia. absent: Distended, Tenderness Additional comments: Left inguinal hernia - Extremities Exam Extremities Exam: Full ROM. absent: Pedal Edema - Neurological Exam Neurological Exam: Alert, Awake, Oriented x3 - Psychiatric Exam Psychiatric exam: Normal Affect, Normal Mood - Skin Skin Exam: Normal Color, Warm Assessment and Plan - Assessment and Plan (Free Text) Assessment: Chest pain r/o ACS Troponins x 3: 0.1310, 0.1450, 0.1210 CK-MB: 3.41, 3.66 EKG - ventricular paced rhythm with pvcs (please see full report) CXR - moderate to severe venous congestion with prominent airspace opacities as well as small bilateral pleural effusions; left greater than right. Left midlung atelectasis. Upper lobe granulomatous changes (please see full report) Crestor 5 mg po qd Aspirin 81 mg po qd Cardiology, Dr. Cruz, consulted. Help appreciated. Nuclear stress test performed - infarction without ischemia of the inferolateral wall of the left ventricle; severe LV systolic dysfunction, EF: 10 -15% CHF Exacerbation; Acute on chronic systolic dysfunction: Pro-BNP 8170 Digoxin 0.125 mg po qd Lasix 40 mg po bid Coreg 12.5 mg po bid Aldactone 25 mg po qd Lisinopril 5 mg po qd Cardiology, Dr. Cruz, consulted. Help appreciated. Nuclear stress test performed - infarction without ischemia of the inferolateral wall of the left ventricle; severe LV systolic dysfunction, EF: 10 -15% Pneumonia CXR - moderate to severe venous congestion with prominent airspace opacities as well as small bilateral pleural effusions; left greater than right. Afebrile, nontachycardic WBC - 11.9 Rocephin 1 gm Iv qd Azithromycin 500 mg IV qd Supratherapeutic INR INR 5.7 Coumadin/anticoagulation held F/U INR daily Atrial Fibrillation INR 5.7 Coumadin held F/U INR daily Coreg 12.5 mg po bid Coronary Artery Disease Crestor 5 mg po qd Aspirin 81 mg po qd Prophylactic measure DVT: SCDs, chemical anticoagulation held due to supratherapeutic INR GI: Protonix 40 mg IV qd <Warren Gonzalez Jr. - Last Filed: 07/30/16 13:49> Objective - Vital Signs/Intake and Output Vital Signs (last 24 hours): Temp Pulse Resp BP Pulse Ox 98 F 70 20 109/65 96 07/21/16 15:33 07/21/16 17:30 07/21/16 15:33 07/21/16 17:54 07/21/16 15:33 - Labs Labs: 07/21/16 07:17 07/21/16 07:17 PT 49.8 SECONDS (9.7-12.2) H* D 07/21/16 07:17 INR 4.1 D 07/21/16 07:17 APTT 46 SECONDS (21-34) H 07/20/16 00:27 Attending/Attestation - Attestation I have personally seen and examined this patient.: Yes I have fully participated in the care of the patient.: Yes I have reviewed all pertinent clinical information, including history, physical exam and plan: Yes Notes (Text): 07/30/16 13:49 Agree with findings and plan
[2016-07-21] MEDS ORDERED: Azithromycin 500 MG in Sodium Chloride 0.9% 250 ML IVPB SCH (06:30)
[2016-07-21 07:36] LABS: CHLORIDE 96 mmol/L (98-107); POTASSIUM 4.5 mmol/L (3.6-5.2); SODIUM 136 mmol/L (132-148)
[2016-07-21 07:38] LABS: ALB/GLOB RATIO 1.1 (1.0-2.1); ALKALINE PHOSPHATASE 52 U/L (38-126); AST/SGOT 27 U/L (17-59); BILIRUBIN,TOTAL 0.5 mg/dL (0.2-1.3); BLOOD UREA NITROGEN 25 mg/dL (9-20); CARBON DIOXIDE 36 mmol/L (22-30); GFR AFRICAN-AMERICAN > 60; TOTAL PROTEIN 5.6 g/dL (6.3-8.3)
[2016-07-21 07:39] LABS: ALT/SGPT 38 U/L (21-72); CALCIUM 8.3 mg/dl (8.6-10.4); GLUCOSE,RANDOM 79 mg/dL (75-110); MAGNESIUM 2.1 mg/dL (1.6-2.3); PHOSPHOROUS 3.3 mg/dL (2.5-4.5)
[2016-07-21 07:49] LABS: BASO # 0.1 K/uL (0.0-0.2); BASO % 0.6 % (0.0-2.0); EOS # 0.3 K/uL (0.0-0.7); EOS % 2.9 % (0.0-4.0); HEMATOCRIT 37.8 % (35.0-51.0); LYMPH # 1.6 K/uL (1.0-4.3); LYMPH % 15.7 % (20.0-40.0); MEAN CELL VOLUME 89.8 fL (80.0-94.0); MEAN CORPUSCULAR HEMOGLOBIN 29.4 pg (27.0-31.0); MEAN CORPUSCULAR HGB CONC 32.8 g/dL (33.0-37.0); MEAN PLATELET VOLUME 9.4 fL (7.2-11.7); MONO # 1.2 K/uL (0.0-0.8); MONO % 11.5 % (0.0-10.0); RED CELL DISTRIBUTION WIDTH 13.9 % (11.5-14.5); WHITE BLOOD COUNT 10.3 K/uL (4.8-10.8)
[2016-07-21 07:53] LABS: INR 4.1
[2016-07-21 09:17] VITALS: O2SAT 96
[2016-07-21] MEDS: cefTRIAXone IV 1 gm in Dextros 50 ML IVPB SCH (10:10)
[2016-07-21] MEDS: Pantoprazole 40 mg EC Tab PO SCH (10:10)
--- NOTE | 2016-07-21 12:03 | CARD ---
APPROVED REPORT EKG Measurement Heart [id number] <Conclusion> Ventricular-paced rhythm with premature ventricular or aberrantly conducted complexes Abnormal ECG
[2016-07-21 15:37] VITALS: BP 109/65; TEMP 98
[2016-07-21] MEDS: Digoxin 125 mcg (0.125 mg) Tab PO SCH (17:54)
[2016-07-21 17:55] VITALS: PULSE 72
[2016-07-21 20:34] VITALS: PULSE 70
--- NOTE | 2016-07-21 22:51 | CP.PCM.DIS ---
Provider - Provider Date of Admission: 07/20/16 02:08 Attending physician: Warren Gonzalez Jr, MD Consults: Cardiology, Dr. Cruz Time Spent in preparation of Discharge (in minutes): 36 Hospital Course - Lab Results Lab Results: Most Recent Lab Values WBC 10.3 K/uL (4.8-10.8) 07/21/16 07: RBC 4.21 Mil/uL (4.40-5.90) L 07/21/16 07: Hgb 12.4 g/dL (12.0-18.0) 07/21/16 07: Hct 37.8 % (35.0-51.0) 07/21/16 07: MCV 89.8 fL (80.0-94.0) 07/21/16 07: MCH 29.4 pg (27.0-31.0) 07/21/16 07: MCHC 32.8 g/dL (33.0-37.0) L 07/21/16 07: RDW 13.9 % (11.5-14.5) 07/21/16 07: Plt Count 267 K/uL (130-400) 07/21/16 07: MPV 9.4 fL (7.2-11.7) 07/21/16 07: Neut % (Auto) 69.3 % (50.0-75.0) 07/21/16 07: Lymph % (Auto) 15.7 % (20.0-40.0) L 07/21/16 07: [place] % (Auto) 11.5 % (0.0-10.0) H 07/21/16 07: Eos % (Auto) 2.9 % (0.0-4.0) 07/21/16 07:17 Baso % (Auto) 0.6 % (0.0-2.0) 07/21/16 07: Neut # 7.2 K/uL (1.8-7.0) H 07/21/16 07:17 Lymph # 1.6 K/uL (1.0-4.3) 07/21/16 07:17 [place] # 1.2 K/uL (0.0-0.8) H 07/21/16 07:17 Eos # 0.3 K/uL (0.0-0.7) 07/21/16 07:17 Baso # 0.1 K/uL (0.0-0.2) 07/21/16 07:17 PT 49.8 SECONDS (9.7-12.2) H* D 07/21/16 07:17 INR 4.1 D 07/21/16 07:17 APTT 46 SECONDS (21-34) H 07/20/16 00:27 Sodium 136 mmol/L (132-148) 07/21/16 07:17 Potassium 4.5 mmol/L (3.6-5.2) 07/21/16 07:17 Chloride 96 mmol/L (98-107) L 07/21/16 07:17 Carbon Dioxide 36 mmol/L (22-30) H 07/21/16 07:17 Anion Gap 9 (10-20) L 07/21/16 07:17 BUN 25 mg/dL (9-20) H 07/21/16 07:17 Creatinine 1.0 MG/DL (0.8-1.5) 07/21/16 07:17 Est GFR ( Amer) > 60 07/21/16 07:17 Est GFR (Non-Af Amer) > 60 07/21/16 07:17 Random Glucose 79 mg/dL (75-110) 07/21/16 07:17 Calcium 8.3 mg/dl (8.6-10.4) L 07/21/16 07:17 Phosphorus 3.3 mg/dL (2.5-4.5) 07/21/16 07:17 Magnesium 2.1 mg/dL (1.6-2.3) 07/21/16 07:17 Total Bilirubin 0.5 mg/dL (0.2-1.3) 07/21/16 07:17 AST 27 U/L (17-59) 07/21/16 07:17 ALT 38 U/L (21-72) 07/21/16 07:17 Alkaline Phosphatase 52 U/L (38-126) 07/21/16 07:17 Total Creatine Kinase 59 U/L (55-170) 07/20/16 13:44 CK-MB (Mass) 3.66 ng/mL (0.0-3.38) H 07/20/16 13:44 Troponin I 0.1310 ng/mL (0.00-0.120) H* 07/20/16 00:27 Troponin I, Quant 0.1210 ng/mL (0.00-0.120) H* 07/20/16 13:44 NT-Pro-B Natriuret Pep 8170 pg/mL (0-900) H 07/20/16 00:27 Total Protein 5.6 g/dL (6.3-8.3) L 07/21/16 07:17 Albumin 2.9 g/dL (3.5-5.0) L 07/21/16 07:17 Globulin 2.6 gm/dL (2.2-3.9) 07/21/16 07:17 Albumin/Globulin Ratio 1.1 (1.0-2.1) 07/21/16 07:17 Digoxin 0.7 ng/mL (0.8-2.0) L 07/20/16 00:26 - Hospital Course Hospital Course: HPI: Patient presents to the ER with complaint of left sided chest discomfort that began a few hours prior to arrival in the ER. Patient describes the pain as a sharp pressure initially but it has since resolved. Patient also admits to feeling generally unwell but cannot be more specific other than he still complains of cough and shortness of breath. Patient states he has been compliant with medications however he did not finish his antibiotic. Patient was discharged with Levaquin but the patient states the pills were too big and he had trouble swallowing them so he did not finish the prescription. Patient denies headaches, fevers, chills, dizziness, palpitations, nausea, vomiting, diaphoresis. Patient states he is able to eat normally and denies symptoms of dysuria or diarrhea. Patient currently resting comfortably in bed. Hospital Course: Troponins x 3 were 0.1310, 0.1450, 0.1210. CK-MB as 3.41, 3.66 x 2, respectively. EKG revealed ventricular paced rhythm with pvcs (please see full report). CXR revealed moderate to severe venous congestion with prominent airspace opacities as well as small bilateral pleural effusions; left greater than right. Left mid lung atelectasis. Upper lobe granulomatous changes (please see full report). Pt was started on crestor and aspirin. Cardiology, Dr. Cruz, was consulted. Nuclear stress test performed - infarction without ischemia of the inferolateral wall of the left ventricle; severe LV systolic dysfunction, EF: 10-15%. Pro-BNP was elevated at 8170. Pt continued on home meds of digoxin, lasix, coreg, aldactone, and new medication of lisinopril was added. Pt was afebrile, nontachcyardic. Pt had a WBC of 11.9. Pt started on rocephin and azithromycin. Pt did not complete course of antibiotics from previous admission. Pt's coumadin was held due to a supratherpeutic INR. On admission, INR was 5.7. Discharge Exam - Head Exam Head Exam: ATRAUMATIC, NORMOCEPHALIC - Eye Exam Eye Exam: EOMI, PERRL - ENT Exam ENT Exam: Mucous Membranes Moist. absent: Mucous Membranes Dry - Neck Exam Neck exam: Full Rom - Respiratory Exam Respiratory Exam: Decreased Breath Sounds. absent: Rales, Rhonchi - Cardiovascular Exam Cardiovascular Exam: Gallop, +S1, +S2 - GI/Abdominal Exam GI & Abdominal Exam: Normal Bowel Sounds, Soft. absent: Tenderness - Extremities Exam Extremities exam: full ROM - Neurological Exam Neurological exam: Alert, Oriented x3 - Skin Skin Exam: Normal Color, Warm Discharge Plan - Discharge Medications Prescriptions: Levofloxacin [Levaquin] 750 mg PO DAILY #5 tablet Lisinopril [Zestril] 5 mg PO DAILY #30 tab - Follow Up Plan Condition: STABLE Patient education suggested?: Yes Instructions: Warfarin (By mouth), Heart Failure (DC), Chest Pain (DC), Heart Healthy Diet (DC) Additional Instructions: Please follow up with primary medical doctor within one week. INR levels must be checked. Please also follow up with digester capper, Dr. Cruz, in one week. Please resume all home medications. Please take new medications, zestril and levaquin, as prescribed. Please return to the hospital if symptoms worsen or new symptoms arise. Referrals: Warren Gonzalez Jr., MD [Medical Doctor] - Souleymane Cruz MD [Staff Provider] - Clinical Quality Measures - CQM - Heart Failure Ejection Fraction: Less Than 40 % Left Ventricular Function to be assessed after discharge: Yes DIDIER Inhibitor Prescribed: Yes Beta-Harley Prescribed: Carvedilol Angiotensin II Receptor Harley Prescribed: No Contraindication/Reason for not providing: Prescribe didier inhibitor AnticoagulationTherapy for Atrial Fibrillation/Atrialflutter: Yes Aldosterone Antagonist Prescribed: Yes Hydralazine Nitrate Prescribed: No Contraindication/Reason for not providing: on DIDIER-inhibitor and aldosterone antagonist Implantable Cardioverter Defibrillator Therapy: Yes Cardiac Resynchronization Therapy Prescribed: No Contraindication/Reason for not providing: as per cardio Will be discharged to: Home Follow Up Date (must be within 7 days from discharge): 07/27/16 Follow Up Time: 09:00
--- NOTE | 2016-07-24 12:09 | CARD ---
APPROVED REPORT EKG Measurement Heart [id number] <Conclusion> Demand pacemaker, interpretation is based on intrinsic rhythm PVCs Prominent baseline artifact. Abnormal Electrocardiogram
--- NOTE | 2016-08-02 11:07 | CARD ---
APPROVED REPORT EKG Measurement Heart [id number] <Conclusion> Ventricular-paced rhythm with frequent premature ventricular complexes Abnormal ECG
--- NOTE | 2016-08-04 19:06 | CARD ---
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 INFUSIONDOSE 100:[id number]/80.20. [id number]/60.11. PROCEDURE Pharmacologic stress testing was performed using 0.4mg per 5ml of regadenoson given intravenously over 7-10 seconds. Reversal agent aminophyline 125 mg, given intravenously for Chest Pain. POST EXERCISE Reason for Termination: PROTOCOL COMPLETED Target HR: No Max HR: 85 bpm 75% of Maximum Predicted HR: 149 bpm Exercise duration: 00:30 min:sec, 0 Stage Exercise capacity: 1.0METs Max Blood Pressure: 174/60mmHg Blood Pressure response to exercise: normal resting BP - appropriate response Heart Rate response to exercise: appropriate Chest Pain: No, none Angina index: 0 Arrhythmia: No, none ST Change: No, none Deviation: 0 mm INTERPRETATION Stress EKG Conclusion: AWAIT NUCLEAR IMAGES EXAM: Myocardial Perfusion STRESS/REST Imaging Protocol The imaging protocol used to acquire images was Stress Tc-99m/rest Tc-99m 1 day Rest Spect myocardial perfusion imaging was performed in supine position 45 minutes following the injection of 30.5 mCi of Tc-99 Myoview. Gated Stress Spect was performed 45 minutes after intravenous 12.1 mCi Tc-99 Myoview injection. The images were gated to evaluate regional wall motion and calculate ventricular ejection fraction.Images were reconstructed using backfilter projection method in short horizontal and verticle long axis. Spect slices were generated. RESTING DATA TWU777.85xuTU0.30L/min YBW918.00mlMyocardial Gdxj340.00g Av. Heart Rate78.00bpm EF16.00% STRESS DATA BVB676.63bvCM7.50L/min MBD263.00mlMyocardial Jpte847.00g EF16.00% Regional WT score at stress:3.00 Regional WM score at stress:3.00 Summed WT score at stress:47.00 Av. Heart Rate92.00bpmSummed WM score at stress:59.00 LV Perf. Quant 17 Seg. SSS11.00 17 Seg. SRS14.00 17 Seg. SDS1.00 Stress Defect Extent (% LAD)0.00Rest Defect Extent (% LAD)0.00Rev. Defect Extent (% LAD)0.00 Stress Defect Extent (% LCX)81.30Rest Defect Extent (% LCX)86.30Rev. Defect Extent (% LCX)6.30 Stress Defect Extent (% RCA)6.70Rest Defect Extent (% RCA)18.90Rev. Defect Extent (% RCA)0.00 Stress Defect Extent (% MATTY)18.30Rest Defect Extent (% MATTY)23.00Rev. Defect Extent (% MATTY)1.70 Other Information Quality:Excellent IMPRESSION Abnormal Myocardial Perfusion exercise stress study Global LV Function: Severely reduced Stress Test Summary: Nondiagnostic LV Perfusion Summary: Abnormal Left Ventricle LV Size/Shape: The Left Ventricle is moderately dilated. LV Function:Left ventricle systolic function is severely reduced The Ejection Fraction is 10-15% Metabolism/Perfusion Reversible/Irreversible: There is a large irreversible perfusion/metabolism defect in the Mid-inferolateral wall. Conclusion 1. Infarction of the inferolateral wall of the left ventricle. 2. Severe LV dysfunction.
== END 2016-07-21 19:00 | disposition home health service (06) | DRG 302 ==
LOC: C.ER 22:55 → C.9E 07-20 02:08 → C.6T 07-20 13:05
PROVIDERS: ADMIT Internal Medicine; ATTEND Internal Medicine
DX: I25.110 Atherosclerotic heart disease of native coronary artery with unstable angina pectoris (principal); J18.9 Pneumonia, unspecified organism; I50.23 Acute on chronic systolic (congestive) heart failure; I11.0 Hypertensive heart disease with heart failure; I48.2 Chronic atrial fibrillation; J98.11 Atelectasis; I73.9 Peripheral vascular disease, unspecified; Z95.1 Presence of aortocoronary bypass graft; Z87.891 Personal history of nicotine dependence; Z79.82 Long term (current) use of aspirin; I25.10 Atherosclerotic heart disease of native coronary artery without angina pectoris; J43.9 Emphysema, unspecified; I49.3 Ventricular premature depolarization; R79.1 Abnormal coagulation profile; Z79.899 Other long term (current) drug therapy; Z95.0 Presence of cardiac pacemaker; Z95.810 Presence of automatic (implantable) cardiac defibrillator

== ENCOUNTER 2016-08-11 16:09 | Inpatient (IN) | payer MEDICARE ==
--- NOTE | 2016-08-11 17:36 | C.PDOC ---
History Of Present Illness 71-year-old male, PMHx includes Atrial Fibrillation (on Coumadin), PPM, CHF, COPD/Emphysema, presents to the emergency department with complaints of worsening shortness of breath and lower-extremity edema over the past week. Patient has also had hematuria over the last 3 days. Initially urine was pink, and now is grossly bloody today. He denies nausea/vomiting, dizziness, cough, fever, dysuria, chest pain, palpitations. Time Seen by Provider: 08/11/16 17:23 Chief Complaint (Nursing): Male Genitourinary History Per: Patient, Family History/Exam Limitations: language barrier (Icelandic) Onset/Duration Of Symptoms: Days Current Symptoms Are (Timing): Still Present Severity: Moderate Past Medical History Reviewed: Historical Data, Nursing Documentation, Vital Signs Vital Signs: Last Vital Signs Temp 97.8 F 08/18/16 17:32 Pulse 69 08/18/16 17:32 Resp 20 08/18/16 17:32 BP 127/67 08/18/16 17:32 Pulse Ox 99 08/19/16 10:14 - Medical History PMH: Atrial Fibrillation, CHF, Emphysema Surgical History: Hernia Repair, Pacemaker Family History: States: No Known Family Hx - Social History Hx Alcohol Use: No Hx Substance Use: No - Immunization History Hx Tetanus Toxoid Vaccination: No Hx Influenza Vaccination: No Hx Pneumococcal Vaccination: No Review Of Systems Except As Marked, All Systems Reviewed And Found Negative. Constitutional: Negative for: Fever, Chills Cardiovascular: Positive for: Edema. Negative for: Chest Pain, Palpitations Respiratory: Positive for: Shortness of Breath, SOB with Excertion, Wheezing Gastrointestinal: Negative for: Nausea, Vomiting, Abdominal Pain, Diarrhea Genitourinary: Positive for: Hematuria Musculoskeletal: Negative for: Back Pain Skin: Negative for: Rash Neurological: Negative for: Weakness, Numbness, Headache, Dizziness Physical Exam - Physical Exam Appears: Non-toxic, Other (mildly dyspneic) Skin: Warm, Dry, No Rash Head: Normacephalic Eye(s): bilateral: Normal Inspection Oral Mucosa: Moist Neck: Normal, Normal ROM Chest: Symmetrical Cardiovascular: Rhythm Irregular (mildly tachycardic ) Respiratory: Accessory Muscle Use (mild), Rales (B/L bases), Wheezing (mild expiratory wheezing ) Gastrointestinal/Abdominal: Normal Exam, Bowel Sounds, Soft, No Tenderness Extremity: Normal ROM, Pedal Edema (+1 pitting edema), No Calf Tenderness, No Deformity Pulses: Left Dorsalis Pedis: Normal, Right Dorsalis Pedis: Normal Neurological/Psych: Oriented x3 ED Course And Treatment - Laboratory Results Result Diagrams: 08/17/16 16:30 08/18/16 08:09 ECG: Interpreted By Me, Viewed By Me (ventricular paced rhythm 108 bpm, left axis deviation, PVCs, no acute ST changes - prior EKG reviewed & unchanged) O2 Sat by Pulse Oximetry: 99 (RA) Pulse Ox Interpretation: Normal - Radiology CXR: Interpreted by Me, Viewed By Me (B/L pulmonary vascular congestion) Progress Note: Blood work, EKG, CXr ordered and reviewed. Patient given IV Lasix and SL nitro. CT scan pelvis ordered. Prior records reviewed - patient had prior CHF exacerbation with elevated troponin. In light of hematuria, will hold ASA at this time. Coags come back abnormal, INR 17. PO Vit K and FFP ordered. Will discuss with PMD Dr. Gonzalez for admission. - Physician Consult Information Physician Contacted: Warren Gonzalez Jr. Outcome Of Conversation: Discussed patient with Dr. Gonzalez, he agrees with admission - biomedical engineering supervisor notified. They will follow CT pelvis results. Critical Care Time - Critical Care Note Total Time (in mins): 40 Documented critical care: time excludes all time spent performing seperately billable procedures. Disposition - Disposition Disposition: HOSPITALIZED Disposition Time: 19:27 Condition: FAIR - Clinical Impression Clinical Impression: CHF exacerbation, Coumadin toxicity, Hematuria - Scribe Statement The provider has reviewed the documentation as recorded by the Jovan Rodríguez All medical record entries made by the Jvoan were at my direction and personally dictated by me. I have reviewed the chart and agree that the record accurately reflects my personal performance of the history, physical exam, medical decision making, and the department course for this patient. I have also personally directed, reviewed, and agree with the discharge instructions and disposition. Decision To Admit - Pt Status Changed To: Hospital Disposition Of: Inpatient - Admit Certification Admit to Inpatient:: After my assessment, the patient will require hospitalization for at least two midnights. This is because of the severity of symptoms shown, intensity of services needed, and/or the medical risk in this patient being treated as an outpatient. - InPatient: Physician Admission Certification: I certify that this patient requires 2 or more midnights of care for the following reason:: see notes - . Bed Request Type: Telemetry Admitting Physician: Warren Gonzalez Jr. Patient Diagnosis: CHF exacerbation, Coumadin toxicity, Hematuria
[2016-08-11 18:08] LABS: BASO # 0.1 K/uL (0.0-0.2); BASO % 0.9 % (0.0-2.0); EOS # 0.3 K/uL (0.0-0.7); EOS % 3.9 % (0.0-4.0); HEMATOCRIT 32.8 % (35.0-51.0); LYMPH # 1.3 K/uL (1.0-4.3); LYMPH % 15.8 % (20.0-40.0); MEAN CELL VOLUME 89.8 fL (80.0-94.0); MEAN CORPUSCULAR HEMOGLOBIN 29.2 pg (27.0-31.0); MEAN CORPUSCULAR HGB CONC 32.5 g/dL (33.0-37.0); MEAN PLATELET VOLUME 8.8 fL (7.2-11.7); MONO # 1.1 K/uL (0.0-0.8); MONO % 13.8 % (0.0-10.0); RED CELL DISTRIBUTION WIDTH 14.7 % (11.5-14.5); WHITE BLOOD COUNT 8.3 K/uL (4.8-10.8)
[2016-08-11 18:18] LABS: CHLORIDE 101 mmol/L (98-107); POTASSIUM 4.6 mmol/L (3.6-5.2); SODIUM 137 mmol/L (132-148)
[2016-08-11 18:20] LABS: AST/SGOT 35 U/L (17-59); BILIRUBIN,TOTAL 0.9 mg/dL (0.2-1.3); CARBON DIOXIDE 30 mmol/L (22-30); GFR AFRICAN-AMERICAN > 60
[2016-08-11 18:21] LABS: ALB/GLOB RATIO 1.1 (1.0-2.1); ALKALINE PHOSPHATASE 57 U/L (38-126); ALT/SGPT 34 U/L (21-72); BLOOD UREA NITROGEN 26 mg/dL (9-20); CALCIUM 8.1 mg/dl (8.6-10.4); GLUCOSE,RANDOM 79 mg/dL (75-110)
--- NOTE | 2016-08-11 19:46 | CP.PCM.HP ---
History of Present Illness - History of Present Illness History of Present Illness: CC: urinating blood for 3 days HPI: Patient is a 71 M PMHx of DE x 3, a.fib on coumadin, PVD, CHF, CAD complaining of gross hematuria over 3 days and worsening shortness of breath and bilateral LE edema. Patient denies any trauma or dysuria. Patient reports that he is unable to walk 1 block without having to stop twice to catch his breath and that he uses 2 pillows to sleep. He also complained of some chest pain with the shortness of breath. Patient denies headaches, fevers, chills, dizziness, palpitations, nausea, vomiting, diaphoresis. Patient was last seen in July 2016 for similar complaints of chest pain and dyspnea but hematuria is new. PMHx: DE, a.fib, PVD, CHF, CAD Meds: please see chart ALL: NKDA PSurg: hernia repair, pacemaker/ AICD FamHx: denies SocHx: former smoker quit 1.5 years ago, denies alcohol and drugs Present on Admission - Present on Admission Any Indicators Present on Admission: No Review of Systems - Constitutional Constitutional: As Per HPI, Chills, Weakness. absent: Fever - EENT Eyes: As Per HPI. absent: Change in Vision Ears: As Per HPI. absent: Decreased Hearing, Tinnitus Nose/Mouth/Throat: As Per HPI. absent: Epistaxis, Sore Throat - Cardiovascular Cardiovascular: As Per HPI, Chest Pain, Dyspnea on Exertion, Edema, Pedal Edema - Respiratory Respiratory: As Per HPI, Dyspnea, Dyspnea on Exertion. absent: Cough, Hemoptysis - Gastrointestinal Gastrointestinal: As Per HPI. absent: Abdominal Pain, Constipation, Diarrhea, Nausea, Vomiting - Genitourinary Genitourinary: As Per HPI, Hematuria. absent: Dysuria - Musculoskeletal Musculoskeletal: As Per HPI. absent: Numbness, Tingling - Neurological Neurological: As Per HPI. absent: Headaches - Hematologic/Lymphatic Hematologic: As Per HPI, Easy Bleeding Past Patient History - Infectious Disease Hx of Infectious Diseases: None - Past Medical History & Family History Past Medical History?: No - Past Social History Smoking Status: Former Smoker - CARDIAC Hx Atrial Fibrillation: Yes Hx Congestive Heart Failure: Yes Hx Pacemaker: Yes - PULMONARY Hx Emphysema: Yes - NEUROLOGICAL Hx Neurological Disorder: No - HEENT Hx HEENT Problems: No - RENAL Hx Chronic Kidney Disease: No - ENDOCRINE/METABOLIC Hx Endocrine Disorders: No - HEMATOLOGICAL/ONCOLOGICAL Hx Human Immunodeficiency Virus (HIV): No - INTEGUMENTARY Hx Dermatological Problems: No - MUSCULOSKELETAL/RHEUMATOLOGICAL Hx Musculoskeletal Disorders: No Hx Falls: No - GASTROINTESTINAL Hx Gastrointestinal Disorders: No - GENITOURINARY/GYNECOLOGICAL Hx Genitourinary Disorders: No - PSYCHIATRIC Hx Substance Use: No - SURGICAL HISTORY Hx Surgeries: Yes Other/Comment: hernia repair - ANESTHESIA Hx Anesthesia: Yes Hx Anesthesia Reactions: No Meds Allergies/Adverse Reactions: Allergies Allergy/AdvReac Type Severity Reaction Status Date / Time No Known Allergies Allergy Verified 08/11/16 16:31 Physical Exam - Constitutional Appears: Non-toxic, No Acute Distress - Head Exam Head Exam: ATRAUMATIC, NORMAL INSPECTION, NORMOCEPHALIC - Eye Exam Eye Exam: Normal appearance. absent: Conjunctival injection, Scleral icterus - ENT Exam ENT Exam: Mucous Membranes Moist - Neck Exam Neck exam: Positive for: Normal Inspection - Respiratory Exam Respiratory Exam: Rales, Wheezes, NORMAL BREATHING PATTERN. absent: Accessory Muscle Use, Respiratory Distress - Cardiovascular Exam Cardiovascular Exam: Tachycardia, Irregular Rhythm, +S1, +S2 - GI/Abdominal Exam GI & Abdominal Exam: Normal Bowel Sounds, Soft. absent: Tenderness - Extremities Exam Extremities exam: Positive for: pedal edema (+1 b/l), tenderness (at ankles b/l) , pedal pulses present. Negative for: calf tenderness - Back Exam Back exam: CVA tenderness (L). absent: rash noted - Neurological Exam Neurological exam: Alert, Oriented x3 - Psychiatric Exam Psychiatric exam: Normal Affect, Normal Mood - Skin Skin Exam: Dry, Intact, Normal Color, Warm Results - Vital Signs Recent Vital Signs: Last Vital Signs Temp 98.1 F 08/11/16 16:34 Pulse 117 H 08/11/16 19:02 Resp 20 08/11/16 19:02 BP 129/83 08/11/16 19:02 Pulse Ox 99 08/11/16 19:34 - Labs Result Diagrams: 08/11/16 18:06 08/11/16 18:06 Labs: Laboratory Results - last 24 hr 08/11/16 08/11/16 08/11/16 18:06 18:06 18:16 WBC 8.3 RBC 3.65 L Hgb 10.6 L Hct 32.8 L MCV 89.8 MCH 29.2 MCHC 32.5 L RDW 14.7 H Plt Count 232 MPV 8.8 Neut % (Auto) 65.6 Lymph % (Auto) 15.8 L Baxter % (Auto) 13.8 H Eos % (Auto) 3.9 Baso % (Auto) 0.9 Neut # 5.4 Lymph # 1.3 Baxter # 1.1 H Eos # 0.3 Baso # 0.1 PT INR APTT Sodium 137 Potassium 4.6 Chloride 101 Carbon Dioxide 30 Anion Gap 11 BUN 26 H Creatinine 0.7 L Est GFR ( Amer) > 60 Est GFR (Non-Af Amer) > 60 POC Glucose (mg/dL) 85 Random Glucose 79 Calcium 8.1 L Total Bilirubin 0.9 AST 35 ALT 34 Alkaline Phosphatase 57 Total Creatine Kinase 212 H CK-MB (Mass) 3.61 H Troponin I 0.1320 H* NT-Pro-B Natriuret Pep 7840 H Total Protein 6.0 L Albumin 3.1 L Globulin 2.9 Albumin/Globulin Ratio 1.1 08/11/16 18:47 WBC RBC Hgb Hct MCV MCH MCHC RDW Plt Count MPV Neut % (Auto) Lymph % (Auto) Baxter % (Auto) Eos % (Auto) Baso % (Auto) Neut # Lymph # Baxter # Eos # Baso # PT 214.8 H* INR 17.0 APTT 108 H* Sodium Potassium Chloride Carbon Dioxide Anion Gap BUN Creatinine Est GFR ( Amer) Est GFR (Non-Af Amer) POC Glucose (mg/dL) Random Glucose Calcium Total Bilirubin AST ALT Alkaline Phosphatase Total Creatine Kinase CK-MB (Mass) Troponin I NT-Pro-B Natriuret Pep Total Protein Albumin Globulin Albumin/Globulin Ratio Assessment & Plan - Assessment and Plan (Free Text) Assessment: 71 M PMHx of DE x 3, a.fib on coumadin, PVD, CHF, CAD complaining of gross hematuria over 3 days and worsening shortness of breath and bilateral LE edema. Plan: Chest pain r/o ACS -Troponin 0132 --> 0.1510 -EKG ventricular paced rhythm with some PVCs and no acute changes -Dr. Cruz aware Gross hematuria -Patient is on coumadin 5mg po daily -INR supratherapeutic at 17 in the ER -Patient was given 1 dose stat vitamin K and transfused 1U FFP in the ER -Phytonadione 10mg IV daily for 3 days - end date 08/14 -Abd/pelvis CT: small to mod b/l pleural effusions; No evidence of nephrolithasis or obstructive uropathy; L inguinal hernia containing part of sigmoid colon and small amount of fluid; bony findings suspicious for ankylosing spondylitis; enlarged prostate gland -f/u urine culture -Urology Dr. Alvarez consulted- f/u reccs HTN -coreg 12.5mg po bid -lisinopril 5mg po daily CHF -BNP 7840 -Echo July 2016: EF 40-45%; hypokinesis in apical inferior wall; LV systolic function is mildly to moderately impaired; mitral regurgitation is trace; mild pulmonary HTN -Lasix 40mg IVP q8 -aldactone 25mg daily -digoxin -coreg 12.5 BID A fib -hold coumadin CAD -hold ASA -crestor 5mg po qhs PPX -hold VTE ppx -protonix 40mg po daily -SCD c/i secondary to edema -Heart healthy diet with fluid restriction -Daily weight -strict Is and Os Plan discussed with Dr. Carlos Sandhu PGY1
--- NOTE | 2016-08-11 20:26 | CT ---
EXAM: CT Abdomen and Pelvis Without Intravenous Contrast CLINICAL HISTORY: 71 years old, male; Condition or disease; Kidney or ureter condition; Other: Hematuria TECHNIQUE: Axial computed tomography images of the abdomen and pelvis without intravenous contrast. This CT exam was performed using one or more of the following dose reduction techniques: automated exposure control, adjustment of the mA and/or kV according to patient size, and/or use of iterative reconstruction technique. Coronal and sagittal reformatted images were created and reviewed. EXAM DATE/TIME: 08/11/2016 6:59 PM COMPARISON: No relevant prior studies available. FINDINGS: LIMITATIONS: Exam is limited by moderate to marked streak/motion artifact. LOWER THORAX: Small to moderate bilateral pleural effusions. These appear loculated/complex. There is no associated gas. Heart appears moderately enlarged. Fluid is seen in the anterior pericardium, with no evidence of a circumferential pericardial effusion. ABDOMEN: LIVER: No acute abnormality of the liver identified. GALLBLADDER AND BILE DUCTS: No CT evidence of acute cholecystitis, allowing for motion artifact. PANCREAS: No CT evidence of acute pancreatitis. SPLEEN: No acute abnormality of the spleen identified. ADRENALS: No acute abnormality of the adrenal glands identified. KIDNEYS AND URETERS: Multiple low density lesions in the kidneys bilaterally, most likely representing cysts. No acute abnormality of the kidneys identified, allowing for motion artifact. No renal stones, hydronephrosis, or hydroureter seen. STOMACH AND BOWEL: The bowel is overall not well evaluated secondary to motion artifact. Allowing for this, there is no definite acute abnormality of the bowel identified. No evidence of bowel obstruction. APPENDIX: Normal appendix is not seen, however, there are no obvious inflammatory changes visualized in the expected location of the appendix to suggest appendicitis. Recommend clinical correlation. PELVIS: BLADDER: No acute abnormality of the bladder identified. REPRODUCTIVE: Prostate gland is enlarged. ABDOMEN and PELVIS: INTRAPERITONEAL SPACE: No evidence of free intraperitoneal air or fluid. BONES/JOINTS: Bony findings which are suspicious for ankylosing spondylitis. There appear to be syndesmophytes at multiple levels in the spine, and there is fusion of the sacroiliac joints bilaterally. SOFT TISSUES: Left inguinal hernia, containing part of the sigmoid colon and a small amount of fluid. No evidence of associated bowel obstruction. No CT findings to suggest hernia incarceration, although clinical exam is more sensitive for detection of hernia incarceration. VASCULATURE: No evidence of abdominal aortic aneurysm. No evidence of periaortic hemorrhage. LYMPH NODES: No evidence of diffuse lymphadenopathy. IMPRESSION: - Small to moderate bilateral pleural effusions. These appear loculated/complex. - Otherwise, definite acute process is seen, although the exam is significantly limited by motion. There is no evidence of nephrolithiasis or obstructive uropathy. - Left inguinal hernia, containing part of the sigmoid colon and a small amount of fluid. - Bony findings suspicious for ankylosing spondylitis. - Enlarged prostate gland. - See above for remaining findings.
[2016-08-11 20:47] LABS: RBC URINE 21429 /hpf (0-3); URINE BACTERIA OCC (<OCC); URINE BILIRUBIN NEGATIVE (NEGATIVE); URINE GLUCOSE (UA) 1+ mg/dL (Normal); URINE KETONE NEGATIVE (NEGATIVE); URINE LEUKOCYTE ESTERASE NEG Leu/uL (Negative); URINE PROTEIN 2+ mg/dL (NEGATIVE); URINE UROBILINOGEN NORMAL mg/dL (0.2-1.0); WBC URINE 10 /hpf (0-5)
[2016-08-11 20:49] LABS: URINE BLOOD 3+ (NEGATIVE); URINE COLOR RED (YELLOW)
[2016-08-12] MEDS ORDERED: Albuterol-Ipratrop 3 mg / 0.5 (3 ml) UD INH STA (01:29)
--- NOTE | 2016-08-12 08:36 | RAD ---
PROCEDURE: CHEST RADIOGRAPH, 1 VIEW HISTORY: SOB COMPARISON: Comparison is made to 07/20/2016 FINDINGS: LUNGS: Moderate to mildly severe pulmonary vascular congestion is noted. PLEURA: Suspicious for bilateral pleural effusions CARDIOVASCULAR: Cardiomegaly is again noted. Left-sided pacemaker seen in place. OSSEOUS STRUCTURES: No significant abnormalities. VISUALIZED UPPER ABDOMEN: Normal. OTHER FINDINGS: None. IMPRESSION: Cardiomegaly and moderate to mildly severe pulmonary vascular congestion. Bilateral pleural effusions. Correlate clinically for CHF.
[2016-08-12 08:47] LABS: BASO # 0.1 K/uL (0.0-0.2); BASO % 0.9 % (0.0-2.0); EOS # 0.3 K/uL (0.0-0.7); EOS % 3.8 % (0.0-4.0); HEMATOCRIT 34.8 % (35.0-51.0); LYMPH # 1.2 K/uL (1.0-4.3); LYMPH % 14.6 % (20.0-40.0); MEAN CELL VOLUME 89.5 fL (80.0-94.0); MEAN CORPUSCULAR HEMOGLOBIN 29.5 pg (27.0-31.0); MEAN PLATELET VOLUME 9.1 fL (7.2-11.7); MONO % 12.5 % (0.0-10.0); RED CELL DISTRIBUTION WIDTH 14.5 % (11.5-14.5)
[2016-08-12 09:02] LABS: CHLORIDE 96 mmol/L (98-107); SODIUM 138 mmol/L (132-148)
[2016-08-12 09:03] LABS: POTASSIUM 4.6 mmol/L (3.6-5.2)
[2016-08-12 09:04] LABS: GFR AFRICAN-AMERICAN > 60
[2016-08-12 09:05] LABS: ALB/GLOB RATIO 1.1 (1.0-2.1); ALKALINE PHOSPHATASE 66 U/L (38-126); ALT/SGPT 27 U/L (21-72); AST/SGOT 34 U/L (17-59); BILIRUBIN,TOTAL 1.4 mg/dL (0.2-1.3); BLOOD UREA NITROGEN 22 mg/dL (9-20); CARBON DIOXIDE 35 mmol/L (22-30); GLUCOSE,RANDOM 101 mg/dL (75-110); TOTAL PROTEIN 6.7 g/dL (6.3-8.3)
[2016-08-12 09:06] LABS: CALCIUM 8.5 mg/dl (8.6-10.4); MAGNESIUM 2.1 mg/dL (1.6-2.3); PHOSPHOROUS 3.5 mg/dL (2.5-4.5)
[2016-08-12] MEDS: Pantoprazole 40 mg EC Tab PO SCH (10:07)
[2016-08-12] MEDS: Phytonadione 10 mg/ml Inj (Adult) IV SCH (10:07)
[2016-08-12 12:18] LABS: INR 4.1
--- NOTE | 2016-08-12 12:51 | CP.PCM.PN ---
<Zarina Ross - Last Filed: 08/12/16 14:28> Subjective - Date & Time of Evaluation Date of Evaluation: 08/12/16 Time of Evaluation: 13:00 - Subjective Subjective: Medicine Progress Note Patient seen and examined. Patient states that he feels fine, but complains of shortness of breath associated with a dry cough. Patient also complains of worsening LE edema in both of his legs. Pt denies chest pain, palpitations, extremity pain, abdominal pain, vomiting, and diarrhea. Discussed patient's case with Dr Cruz who recommends continuing current medical therapy. Patient had stress test on recent admission which showed areas of infarct. Objective - Vital Signs/Intake and Output Vital Signs (last 24 hours): Temp Pulse Resp BP Pulse Ox 97.7 F 130 H 20 123/71 98 08/12/16 08:12 08/12/16 08:12 08/12/16 08:12 08/12/16 10:07 08/12/16 08:12 Intake and Output: 08/12/16 08/12/16 06:59 18:59 Intake Total 420 Output Total 1200 Balance -780 - Medications Medications: Current Medications Carvedilol (Coreg) 12.5 mg PO BID [facility] Last Admin: 08/12/16 10:07 Dose: 12.5 mg Digoxin (Lanoxin) 0.125 mg PO DAILY@1800 [facility] Furosemide (Lasix) 40 mg IVP Q8H [facility] Last Admin: 08/12/16 07:50 Dose: 40 mg Lisinopril (Zestril) 5 mg PO DAILY [facility] Last Admin: 08/12/16 10:08 Dose: 5 mg Pantoprazole Sodium (Protonix Ec Tab) 40 mg PO DAILY [facility] Last Admin: 08/12/16 10:07 Dose: 40 mg Phytonadione (Vitamin K Inj) 10 mg IV DAILY [facility] Stop: 08/14/16 13:00 Last Admin: 08/12/16 10:07 Dose: 10 mg Pneumococcal Polyvalent Vaccine (Pneumovax 23 Vaccine) 0.5 ml IM .ONCE ONE Stop: 08/14/16 10:01 Rosuvastatin Calcium (Crestor) 5 mg PO HS [facility] Spironolactone (Aldactone) 25 mg PO DAILY [facility] Last Admin: 08/12/16 10:06 Dose: 25 mg - Labs Labs: 08/12/16 08:30 08/12/16 08:30 PT 49.1 SECONDS (9.7-12.2) H* D 08/12/16 11:53 INR 4.1 D 08/12/16 11:53 APTT 108 SECONDS (21-34) H* 08/11/16 18:47 - Constitutional Appears: Non-toxic, No Acute Distress - Head Exam Head Exam: ATRAUMATIC, NORMOCEPHALIC - Eye Exam Eye Exam: EOMI, Normal appearance - ENT Exam ENT Exam: Mucous Membranes Moist - Neck Exam Neck Exam: Normal Inspection - Respiratory Exam Respiratory Exam: Wheezes (Right lung ), NORMAL BREATHING PATTERN. absent: Accessory Muscle Use, Rhonchi, Respiratory Distress - Cardiovascular Exam Cardiovascular Exam: +S1, +S2. absent: Murmur - GI/Abdominal Exam GI & Abdominal Exam: Soft, Normal Bowel Sounds - Extremities Exam Extremities Exam: Pedal Edema (bilateral LE edema ) - Neurological Exam Neurological Exam: Alert, Awake, Oriented x3 - Psychiatric Exam Psychiatric exam: Normal Affect, Normal Mood - Skin Skin Exam: Dry, Intact, Normal Color, Warm Assessment and Plan - Assessment and Plan (Free Text) Assessment: 71 M PMHx of [place] x 3, a.fib on coumadin, PVD, CHF, CAD complaining of gross hematuria over 3 days and worsening shortness of breath and bilateral LE edema. Plan: Supratherapeutic INR -INR supratherapeutic at 17 in the ER--> 4.1 -Patient was given 1 dose stat vitamin K and transfused 1U FFP in the ER -Phytonadione 10mg IV daily for 3 days - end date 08/14 -Will need to consider switching patient to alternative form of anticoagulation as patient's INR has been supratherapeutic in the past Chest pain r/o ACS -Resolved -Troponin 0132 --> 0.1510 -EKG ventricular paced rhythm with some PVCs and no acute changes -Dr. Cruz aware: recommends to continue current management -Patient had stress test on recent admission which showed areas of infarct Gross hematuria -Patient is on coumadin 5mg po daily- held at this time -Abd/pelvis CT: small to mod b/l pleural effusions; No evidence of nephrolithasis or obstructive uropathy; L inguinal hernia containing part of sigmoid colon and small amount of fluid; bony findings suspicious for ankylosing spondylitis; enlarged prostate gland -urine culture negative x24 hours -Urology Dr. Alvarez consulted- f/u recommendations HTN -coreg 12.5mg po bid -lisinopril 5mg po daily CHF -BNP 7840 -Echo July 2016: EF 40-45%; hypokinesis in apical inferior wall; LV systolic function is mildly to moderately impaired; mitral regurgitation is trace; mild pulmonary HTN -Lasix 40mg IVP q8 -aldactone 25mg daily -digoxin -coreg 12.5 BID A fib -hold coumadin - currently rate controlled - Digoxin daily CAD -hold ASA -crestor 5mg po qhs PPX -hold VTE ppx -protonix 40mg po daily -SCD c/i secondary to edema -Heart healthy diet with fluid restriction -Daily weight -strict Is and Os Plan discussed with Dr. Gonzalez <Warren Gonzalez Jr. - Last Filed: 08/14/16 10:08> Objective - Vital Signs/Intake and Output Vital Signs (last 24 hours): Temp Pulse Resp BP Pulse Ox 97.4 F L 84 18 120/73 100 08/14/16 07:05 08/14/16 07:05 08/14/16 07:05 08/14/16 09:23 08/14/16 07:05 - Medications Medications: Current Medications Albuterol/Ipratropium (Duoneb 3 Mg/0.5 Mg (3 Ml) Ud) 3 ml INH RQ6 [facility] Last Admin: 08/14/16 07:19 Dose: 3 ml Carvedilol (Coreg) 12.5 mg PO BID [facility] Last Admin: 08/14/16 09:22 Dose: 12.5 mg Digoxin (Lanoxin) 0.125 mg PO DAILY@1800 [facility] Last Admin: 08/13/16 17:58 Dose: 0.125 mg Furosemide (Lasix) 40 mg PO DAILY [facility] Last Admin: 08/14/16 09:23 Dose: 40 mg Guaifenesin (Robitussin) 100 mg PO Q4H PRN PRN Reason: Cough Lisinopril (Zestril) 5 mg PO DAILY [facility] Last Admin: 08/14/16 09:24 Dose: 5 mg Pantoprazole Sodium (Protonix Ec Tab) 40 mg PO DAILY [facility] Last Admin: 08/14/16 09:24 Dose: 40 mg Rosuvastatin Calcium (Crestor) 5 mg PO [facility] Last Admin: 08/13/16 22:58 Dose: 5 mg Spironolactone (Aldactone) 25 mg PO DAILY [facility] Last Admin: 08/14/16 09:22 Dose: 25 mg - Labs Labs: 08/13/16 07:38 08/14/16 07:05 PT 13.3 SECONDS (9.7-12.2) H D 08/13/16 07:38 INR 1.2 D 08/13/16 07:38 APTT 108 SECONDS (21-34) H* 08/11/16 18:47 Attending/Attestation - Attestation I have personally seen and examined this patient.: Yes I have fully participated in the care of the patient.: Yes I have reviewed all pertinent clinical information, including history, physical exam and plan: Yes Notes (Text): 08/14/16 10:07 Agree with resident note and findings
--- NOTE | 2016-08-12 13:22 | CP.PCM.CON ---
History of Present Illness - History of Present Illness History of Present Illness: I was asked to see patient by Dr. Gonzalez. Patient is a 71 year old male with PMH HTN, hypercholesterolemia, atrial fibrillation, ischemic cardiomyopathy who is admitted for supratherapeutic INR. The patient had a recent [facility] admission for chest pain. He had nuclear stress test revealing areas of infarction. The LV is severely depressed. The patient is on coumadin for atrial fibrillation. The patient has previously had a supratherapeutic INR. He denies chest pain. Review of Systems - Constitutional Constitutional: absent: As Per HPI, Anorexia, Chills, Daytime Sleepiness, Excessive Sweating, Fatigue, Fever, Frequent Falls, Headache, Increased Appetite , Lethargy, Malaise, Night Sweats, Snoring, Sleep Apnea, Weight Gain, Weight Loss, Weakness, Other - EENT Eyes: absent: As Per HPI, Blind Spots, Blurred Vision, Change in Vision, Decreased Night Vision, Diplopia, Discharge, Dry Eye, Exophthalmos, Floaters, Irritation, Itchy Eyes, Loss of Peripheral Vision, Pain, Photophobia, Requires Corrective Lenses, Sees Flashes, Spots in Vision, Tunnel Vision, Other Visual Disturbances, Loss of Vision, Other Ears: absent: As Per HPI, Decreased Hearing, Ear Discharge, Ear Pain, Tinnitus, Abnormal Hearing, Disequilibrium, Dizziness, Other Nose/Mouth/Throat: absent: As Per HPI, Epistaxis, Nasal Congestion, Nasal Discharge, Nasal Obstruction, Nasal Trauma, Nose Pain, Post Nasal Drip, Sinus Pain, Sinus Pressure, Bleeding Gums, Change in Voice, Dental Pain, Dry Mouth, Dysphagia, Halitosis, Hoarsness, Lip Swelling, Mouth Lesions, Mouth Pain, Odynophagia, Sore Throat, Throat Swelling, Tongue Swelling, Facial Pain, Neck Pain, Neck Mass, Other - Cardiovascular Cardiovascular: Dyspnea - Respiratory Respiratory: absent: As Per HPI, Cough, Dyspnea, Hemoptysis, Dyspnea on Exertion , Wheezing, Snoring, Stridor, Pain on Inspiration, Chest Congestion, Excessive Mucous Production, Change in Mucous Color, Pain with Coughing, Other - Gastrointestinal Gastrointestinal: absent: As Per HPI, Abdominal Pain, Belching, Bloating, Change in Bowel Habits, Change in Stool Character, Coffee Ground Emesis, Constipation, Cramping, Diarrhea, Dyspepsia, Dysphagia, Early Satiety, Excessive Flatus, Fecal Incontinence, Heartburn, Hematemesis, Hematochezia, Loose Stools, Melena, Nausea, Odynophagia, Temesmus, Vomiting, Other - Genitourinary Genitourinary: absent: As Per HPI, Change in Urinary Stream, Difficulty Urinating, Dysuria, Flank Pain, Hematuria, Pyuria, Nocturia, Urinary Incontinence, Urinary Frequency, Urinary Hesitance, Urinary Urgency, Voiding Freq/Small Amts, Freq UTI, Hx Renal/Bladder Calculi, Hx /Renal Surgery, Bladder Distension, Other - Musculoskeletal Musculoskeletal: absent: As Per HPI, Abnormal Gait, Arthralgias, Atrophy, Back Pain, Deformity, Joint Swelling, Limited Range of Motion, Loss of Height, Muscle Cramps, Muscle Weakness, Myalgias, Neck Pain, Numbness, Radiating Pain into Limb, Stiffness, Tingling, Other - Integumentary Integumentary: absent: As Per HPI, Acne, Alopecia, Bleeding Lesions, Change in Hair, Change in Nails, Change in Pigmentation, Changing Lesions, Dry Skin, Erythema, Furuncle, Hirsutism, Lesions, New Lesions, Non-Healing Lesions, Photosensitivity, Pruritus, Rash, Skin Pain, Skin Ulcer, Sores, Striae, Swelling , Unusual Bruising, Wounds, Jaundice, Other - Neurological Neurological: absent: As Per HPI, Abnormal Gait, Abnormal Hearing, Abnormal Movements, Abnormal Speech, Behavioral Changes, Burning Sensations, Confusion, Convulsions, Disequilibrium, Dizziness, Numbness, Focal Weakness, Frequent Falls , Headaches, Lack of Coordination, Loss of Vision, Memory Loss, Paresthesias, Radicular Pain, Restless Legs, Sensory Deficit, Syncope, Tingling, Tremor, Vertigo, Weakness, Other Visual Disturbances, Other - Psychiatric Psychiatric: absent: As Per HPI, Abnormal Sleep Pattern, Anhedonia, Anxiety, Auditory Hallucinations, Behavioral Changes, Change in Appetite, Change in Libido, Confusion, Depression, Difficulty Concentrating, Hallucinations, Homicidal Ideation, Hopelessness, Irritability, Memory Loss, Mood Swings, Panic Attacks, Paranoia, Suicidal Ideation, Visual Hallucinations, Tactile Hallucinations, Other - Endocrine Endocrine: absent: As Per HPI, Change in Body Appearance, Change in Libido, Cold Intolorance, Deepening of Voice, Excessive Sweating, Fatigue, Flushing, Heat Intolorance, Increase in Ring/Shoe/Hat Size, Palpitations, Polydipsia, Polyphagia, Polyuria, Other - Hematologic/Lymphatic Hematologic: absent: As Per HPI, Easy Bleeding, Easy Bruising, Lymphadenopathy, Other Past Patient History - Infectious Disease Hx of Infectious Diseases: None - Past Medical History & Family History Past Medical History?: No - Past Social History Smoking Status: Former Smoker - CARDIAC Hx Atrial Fibrillation: Yes Hx Congestive Heart Failure: Yes Hx Pacemaker: Yes - PULMONARY Hx Emphysema: Yes - NEUROLOGICAL Hx Neurological Disorder: No - HEENT Hx HEENT Problems: No - RENAL Hx Chronic Kidney Disease: No - ENDOCRINE/METABOLIC Hx Endocrine Disorders: No - HEMATOLOGICAL/ONCOLOGICAL Hx Human Immunodeficiency Virus (HIV): No - INTEGUMENTARY Hx Dermatological Problems: No - MUSCULOSKELETAL/RHEUMATOLOGICAL Hx Musculoskeletal Disorders: No Hx Falls: No - GASTROINTESTINAL Hx Gastrointestinal Disorders: No - GENITOURINARY/GYNECOLOGICAL Hx Genitourinary Disorders: No - PSYCHIATRIC Hx Substance Use: No - SURGICAL HISTORY Hx Surgeries: Yes Other/Comment: hernia repair - ANESTHESIA Hx Anesthesia: Yes Hx Anesthesia Reactions: No Meds Allergies/Adverse Reactions: Allergies Allergy/AdvReac Type Severity Reaction Status Date / Time No Known Allergies Allergy Verified 08/11/16 16:31 - Medications Medications: Current Medications Carvedilol (Coreg) 12.5 mg PO BID [facility] Last Admin: 08/12/16 10:07 Dose: 12.5 mg Digoxin (Lanoxin) 0.125 mg PO DAILY@1800 [facility] Furosemide (Lasix) 40 mg IVP Q8H [facility] Last Admin: 08/12/16 07:50 Dose: 40 mg Lisinopril (Zestril) 5 mg PO DAILY [facility] Last Admin: 08/12/16 10:08 Dose: 5 mg Pantoprazole Sodium (Protonix Ec Tab) 40 mg PO DAILY [facility] Last Admin: 08/12/16 10:07 Dose: 40 mg Phytonadione (Vitamin K Inj) 10 mg IV DAILY [facility] Stop: 08/14/16 13:00 Last Admin: 08/12/16 10:07 Dose: 10 mg Pneumococcal Polyvalent Vaccine (Pneumovax 23 Vaccine) 0.5 ml IM .ONCE ONE Stop: 08/14/16 10:01 Rosuvastatin Calcium (Crestor) 5 mg PO HS [facility] Spironolactone (Aldactone) 25 mg PO DAILY [facility] Last Admin: 05/13/17 10:06 Dose: 25 mg Physical Exam - Constitutional Appears: Non-toxic - Head Exam Head Exam: NORMAL INSPECTION - Eye Exam Eye Exam: Normal appearance - ENT Exam ENT Exam: Mucous Membranes Moist - Neck Exam Neck exam: Positive for: Full Rom - Respiratory Exam Respiratory Exam: Decreased Breath Sounds - Cardiovascular Exam Cardiovascular Exam: REGULAR RHYTHM - GI/Abdominal Exam GI & Abdominal Exam: Normal Bowel Sounds - Rectal Exam Rectal Exam: Deferred - Extremities Exam Extremities exam: Negative for: pedal edema - Back Exam Back exam: NORMAL INSPECTION - Neurological Exam Neurological exam: Alert, Oriented x3 - Psychiatric Exam Psychiatric exam: Normal Affect - Skin Skin Exam: Normal Color Results - Vital Signs Recent Vital Signs: Last Vital Signs Temp 97.7 F 08/12/16 08:12 Pulse 130 H 08/12/16 08:12 Resp 20 08/12/16 08:12 BP 123/71 08/12/16 10:07 Pulse Ox 98 08/12/16 08:12 - Labs Result Diagrams: 08/12/16 08:30 08/12/16 08:30 Labs: Laboratory Results - last 24 hr 08/11/16 08/11/16 08/12/16 19:57 20:02 00:08 WBC RBC Hgb Hct MCV MCH MCHC RDW Plt Count MPV Neut % (Auto) Lymph % (Auto) [place] % (Auto) Eos % (Auto) Baso % (Auto) Neut # Lymph # [place] # Eos # Baso # PT INR Sodium Potassium Chloride Carbon Dioxide Anion Gap BUN Creatinine Est GFR ( Amer) Est GFR (Non-Af Amer) Random Glucose Calcium Phosphorus Magnesium Total Bilirubin AST ALT Alkaline Phosphatase Total Creatine Kinase 190 H CK-MB (Mass) 3.17 Troponin I, Quant 0.1510 H* Total Protein Albumin Globulin Albumin/Globulin Ratio Urine Color Red Urine Clarity Slight-cloudy Urine pH 6.0 Ur Specific [place] 1.011 Urine Protein 2+ H Urine Glucose (UA) 1+ H Urine Ketones Negative Urine Blood 3+ H Urine Nitrate Negative Urine Bilirubin Negative Urine Urobilinogen Normal Ur Leukocyte Esterase Neg Urine WBC (Auto) 10 H Urine RBC (Auto) 03393 H Urine Bacteria Occ H Blood Type A POSITIVE Blood Type Confirm A POSITIVE Antibody Screen Negative 08/12/16 08/12/16 08/12/16 08:30 08:30 11:53 WBC 8.0 RBC 3.89 L Hgb 11.5 L Hct 34.8 L MCV 89.5 MCH 29.5 MCHC 33.0 RDW 14.5 Plt Count 235 MPV 9.1 Neut % (Auto) 68.2 Lymph % (Auto) 14.6 L [place] % (Auto) 12.5 H Eos % (Auto) 3.8 Baso % (Auto) 0.9 Neut # 5.5 Lymph # 1.2 [place] # 1.0 H Eos # 0.3 Baso # 0.1 PT 49.1 H* D INR 4.1 D Sodium 138 Potassium 4.6 Chloride 96 L Carbon Dioxide 35 H Anion Gap 12 BUN 22 H Creatinine 0.8 Est GFR ( Amer) > 60 Est GFR (Non-Af Amer) > 60 Random Glucose 101 Calcium 8.5 L Phosphorus 3.5 Magnesium 2.1 Total Bilirubin 1.4 H AST 34 ALT 27 Alkaline Phosphatase 66 Total Creatine Kinase CK-MB (Mass) Troponin I, Quant Total Protein 6.7 Albumin 3.5 Globulin 3.3 Albumin/Globulin Ratio 1.1 Urine Color Urine Clarity Urine pH Ur Specific [place] Urine Protein Urine Glucose (UA) Urine Ketones Urine Blood Urine Nitrate Urine Bilirubin Urine Urobilinogen Ur Leukocyte Esterase Urine WBC (Auto) Urine RBC (Auto) Urine Bacteria Blood Type Blood Type Confirm Antibody Screen - EKG Data EKG Interpreted by: Myself Assessment & Plan (1) Chronic systolic dysfunction of left ventricle Assessment and Plan: recommend conitnued medical therapy. appears euvolemic Status: Acute (2) CAD (coronary artery disease) Assessment and Plan: no current angina Status: Acute (3) Chronic atrial fibrillation Assessment and Plan: rate controlled. paced ventricular rhythm. Status: Acute (4) Supratherapeutic INR Assessment and Plan: risks benefit of anticoagulation will need to be discussed. He has had multiple admissions with elevated INR. Status: Acute
[2016-08-12] MEDS ORDERED: guaiFENesin 100 mg/5 ml Syrup UD PO PRN (14:32)
[2016-08-12] MEDS: Digoxin 125 mcg (0.125 mg) Tab PO SCH (17:46)
[2016-08-12] MEDS: Albuterol-Ipratrop 3 mg / 0.5 (3 ml) UD INH SCH (19:25)
[2016-08-13] MEDS: Albuterol-Ipratrop 3 mg / 0.5 (3 ml) UD INH SCH ×3 (01:38→19:16)
[2016-08-13 07:50] LABS: BASO # 0.1 K/uL (0.0-0.2); BASO % 0.7 % (0.0-2.0); EOS # 0.4 K/uL (0.0-0.7); EOS % 4.4 % (0.0-4.0); LYMPH % 12.1 % (20.0-40.0); MEAN CORPUSCULAR HEMOGLOBIN 29.2 pg (27.0-31.0); MEAN CORPUSCULAR HGB CONC 32.8 g/dL (33.0-37.0); MEAN PLATELET VOLUME 9.5 fL (7.2-11.7); MONO % 12.5 % (0.0-10.0); RED CELL DISTRIBUTION WIDTH 14.3 % (11.5-14.5); WHITE BLOOD COUNT 8.2 K/uL (4.8-10.8)
[2016-08-13 07:52] LABS: INR 1.2
[2016-08-13 08:06] LABS: CHLORIDE 93 mmol/L (98-107)
[2016-08-13 08:07] LABS: POTASSIUM 4.1 mmol/L (3.6-5.2); SODIUM 135 mmol/L (132-148)
[2016-08-13 08:09] LABS: AST/SGOT 29 U/L (17-59); BILIRUBIN,TOTAL 1.2 mg/dL (0.2-1.3); BLOOD UREA NITROGEN 29 mg/dL (9-20); CARBON DIOXIDE 37 mmol/L (22-30); GFR AFRICAN-AMERICAN > 60
[2016-08-13 08:10] LABS: ALKALINE PHOSPHATASE 57 U/L (38-126); ALT/SGPT 28 U/L (21-72); CALCIUM 7.8 mg/dl (8.6-10.4); GLUCOSE,RANDOM 103 mg/dL (75-110)
[2016-08-13] MEDS: Pantoprazole 40 mg EC Tab PO SCH (09:45)
[2016-08-13] MEDS: Phytonadione 10 mg/ml Inj (Adult) IV SCH (09:51)
[2016-08-13] MEDS ORDERED: Pneumococcal 23-Valent Vaccine SC ONE (10:00)
--- NOTE | 2016-08-13 10:26 | CP.PCM.PN ---
Subjective - Date & Time of Evaluation Date of Evaluation: 08/13/16 Time of Evaluation: 10:20 - Subjective Subjective: Patient has no chest pain. breathing is improved. INR is normal. Objective - Vital Signs/Intake and Output Vital Signs (last 24 hours): Temp Pulse Resp BP Pulse Ox 97.3 F L 74 20 98/65 L 97 08/13/16 00:40 08/13/16 00:40 08/13/16 00:40 08/13/16 09:49 08/13/16 00:40 - Medications Medications: Current Medications Albuterol/Ipratropium (Duoneb 3 Mg/0.5 Mg (3 Ml) Ud) 3 ml INH RQ6 [facility] Last Admin: 08/13/16 08:13 Dose: 3 ml Carvedilol (Coreg) 12.5 mg PO BID [facility] Last Admin: 08/13/16 09:48 Dose: Not Given Digoxin (Lanoxin) 0.125 mg PO DAILY@1800 [facility] Last Admin: 08/12/16 17:46 Dose: 0.125 mg Furosemide (Lasix) 40 mg IVP Q8H [facility] Last Admin: 08/13/16 09:49 Dose: Not Given Guaifenesin (Robitussin) 100 mg PO Q4H PRN PRN Reason: Cough Lisinopril (Zestril) 5 mg PO DAILY [facility] Last Admin: 08/13/16 09:50 Dose: Not Given Pantoprazole Sodium (Protonix Ec Tab) 40 mg PO DAILY [facility] Last Admin: 08/13/16 09:45 Dose: 40 mg Phytonadione (Vitamin K Inj) 10 mg IV DAILY [facility] Stop: 08/14/16 13:00 Last Admin: 08/13/16 09:51 Dose: 10 mg Pneumococcal Polyvalent Vaccine (Pneumovax 23 Vaccine) 0.5 ml IM .ONCE ONE Stop: 08/14/16 10:01 Rosuvastatin Calcium (Crestor) 5 mg PO HS [facility] Last Admin: 08/12/16 21:57 Dose: 5 mg Spironolactone (Aldactone) 25 mg PO DAILY [facility] Last Admin: 08/13/16 09:47 Dose: 25 mg - Labs Labs: 08/13/16 07:38 08/13/16 07:38 PT 13.3 SECONDS (9.7-12.2) H D 08/13/16 07:38 INR 1.2 D 08/13/16 07:38 APTT 108 SECONDS (21-34) H* 08/11/16 18:47 - Constitutional Appears: Non-toxic - Head Exam Head Exam: NORMAL INSPECTION - Eye Exam Eye Exam: Normal appearance - ENT Exam ENT Exam: Mucous Membranes Moist - Neck Exam Neck Exam: Full ROM - Cardiovascular Exam Cardiovascular Exam: REGULAR RHYTHM - GI/Abdominal Exam GI & Abdominal Exam: Normal Bowel Sounds - Rectal Exam Rectal Exam: Deferred - Extremities Exam Extremities Exam: absent: Pedal Edema - Back Exam Back Exam: NORMAL INSPECTION - Neurological Exam Neurological Exam: Alert - Psychiatric Exam Psychiatric exam: Normal Affect - Skin Skin Exam: Normal Color Assessment and Plan (1) Chronic systolic dysfunction of left ventricle Assessment & Plan: improved. changed lasix to 40 mg po daily Status: Acute (2) CAD (coronary artery disease) Assessment & Plan: infarction without ischemia on previous stress test Status: Acute (3) Chronic atrial fibrillation Assessment & Plan: patient has had multiple admissions for suprtherapeutic INR. consider d/c coumadin Status: Acute (4) Supratherapeutic INR Status: Acute
--- NOTE | 2016-08-13 12:27 | CP.PCM.PN ---
<Zarina Ross - Last Filed: 08/13/16 13:18> Subjective - Date & Time of Evaluation Date of Evaluation: 08/13/16 Time of Evaluation: 13:21 - Subjective Subjective: Medicine Progress Note Patient seen and examined. Patient states that he feels better but continues to have hematuria. Patient denies chest pain and states his breathing has improved a little. Denies palpitations, headache, and weakness. Objective - Vital Signs/Intake and Output Vital Signs (last 24 hours): Temp Pulse Resp BP Pulse Ox 98.8 F 95 H 20 98/65 L 96 08/13/16 07:35 08/13/16 07:35 08/13/16 07:35 08/13/16 09:49 08/13/16 07:35 - Medications Medications: Current Medications Albuterol/Ipratropium (Duoneb 3 Mg/0.5 Mg (3 Ml) Ud) 3 ml INH RQ6 [facility] Last Admin: 08/13/16 08:13 Dose: 3 ml Carvedilol (Coreg) 12.5 mg PO BID [facility] Last Admin: 08/13/16 09:48 Dose: Not Given Digoxin (Lanoxin) 0.125 mg PO DAILY@1800 [facility] Last Admin: 08/12/16 17:46 Dose: 0.125 mg Furosemide (Lasix) 40 mg IVP Q8H [facility] Last Admin: 08/13/16 09:49 Dose: Not Given Guaifenesin (Robitussin) 100 mg PO Q4H PRN PRN Reason: Cough Lisinopril (Zestril) 5 mg PO DAILY [facility] Last Admin: 08/13/16 09:50 Dose: Not Given Pantoprazole Sodium (Protonix Ec Tab) 40 mg PO DAILY [facility] Last Admin: 08/13/16 09:45 Dose: 40 mg Pneumococcal Polyvalent Vaccine (Pneumovax 23 Vaccine) 0.5 ml IM .ONCE ONE Stop: 08/14/16 10:01 Rosuvastatin Calcium (Crestor) 5 mg PO HS [facility] Last Admin: 08/12/16 21:57 Dose: 5 mg Spironolactone (Aldactone) 25 mg PO DAILY [facility] Last Admin: 08/13/16 09:47 Dose: 25 mg - Labs Labs: 08/13/16 07:38 08/13/16 07:38 PT 13.3 SECONDS (9.7-12.2) H D 08/13/16 07:38 INR 1.2 D 08/13/16 07:38 APTT 108 SECONDS (21-34) H* 08/11/16 18:47 - Additional Findings Additional findings: - Constitutional Appears: Non-toxic, No Acute Distress - Head Exam Head Exam: ATRAUMATIC, NORMOCEPHALIC - Eye Exam Eye Exam: EOMI, Normal appearance - ENT Exam ENT Exam: Mucous Membranes Moist - Neck Exam Neck Exam: Normal Inspection - Respiratory Exam Respiratory Exam: Wheezes (Right lung ), NORMAL BREATHING PATTERN. absent: Accessory Muscle Use, Rhonchi, Respiratory Distress - Cardiovascular Exam Cardiovascular Exam: +S1, +S2. absent: Murmur - GI/Abdominal Exam GI & Abdominal Exam: Soft, Normal Bowel Sounds - Extremities Exam Extremities Exam: Pedal Edema (bilateral LE edema ) - Neurological Exam Neurological Exam: Alert, Awake, Oriented x3 - Psychiatric Exam Psychiatric exam: Normal Affect, Normal Mood - Skin Skin Exam: Dry, Intact, Normal Color, Warm Assessment and Plan - Assessment and Plan (Free Text) Assessment: 71 M PMHx of [place] x 3, a.fib on coumadin, PVD, CHF, CAD complaining of gross hematuria over 3 days and worsening shortness of breath and bilateral LE edema. Plan: Supratherapeutic INR -INR supratherapeutic at 17 in the ER--> 4.1 --> 1.2 -Patient was given 1 dose stat vitamin K and transfused 1U FFP in the ER -Phytonadione 10mg IV daily --stopped on 08/13 -Will need to consider switching patient to alternative form of anticoagulation as patient's INR has been supratherapeutic in the past Chest pain r/o ACS -Resolved -Troponin 0.132 --> 0.1510--> normal -EKG ventricular paced rhythm with some PVCs and no acute changes -Dr. Cruz aware: recommends to continue current management -Patient had stress test on recent admission which showed areas of infarct Gross hematuria -Patient is on coumadin 5mg po daily- held at this time -Abd/pelvis CT: small to mod b/l pleural effusions; No evidence of nephrolithasis or obstructive uropathy; L inguinal hernia containing part of sigmoid colon and small amount of fluid; bony findings suspicious for ankylosing spondylitis; enlarged prostate gland -urine culture negative x24 hours -Urology Dr. Alvarez consulted- f/u recommendations HTN -coreg 12.5mg po bid -lisinopril 5mg po daily CHF -BNP 7840 -Echo July 2016: EF 40-45%; hypokinesis in apical inferior wall; LV systolic function is mildly to moderately impaired; mitral regurgitation is trace; mild pulmonary HTN -Lasix 40mg IVP q8 stopped and changed to Lasix 40mg PO daily on 08/13 -aldactone 25mg daily -digoxin -coreg 12.5 BID A fib -hold coumadin -currently rate controlled -Digoxin daily CAD -hold ASA -crestor 5mg po qhs PPX -hold VTE ppx -protonix 40mg po daily -SCD c/i secondary to edema -Heart healthy diet with fluid restriction -Daily weight -strict Is and Os Plan discussed with Dr. Gonzalez <Warren Gonzalez Jr. - Last Filed: 08/14/16 10:09> Objective - Vital Signs/Intake and Output Vital Signs (last 24 hours): Temp Pulse Resp BP Pulse Ox 97.4 F L 84 18 120/73 100 08/14/16 07:05 08/14/16 07:05 08/14/16 07:05 08/14/16 09:23 08/14/16 07:05 - Medications Medications: Current Medications Albuterol/Ipratropium (Duoneb 3 Mg/0.5 Mg (3 Ml) Ud) 3 ml INH RQ6 [facility] Last Admin: 08/14/16 07:19 Dose: 3 ml Carvedilol (Coreg) 12.5 mg PO BID [facility] Last Admin: 08/14/16 09:22 Dose: 12.5 mg Digoxin (Lanoxin) 0.125 mg PO DAILY@1800 [facility] Last Admin: 08/13/16 17:58 Dose: 0.125 mg Furosemide (Lasix) 40 mg PO DAILY [facility] Last Admin: 08/14/16 09:23 Dose: 40 mg Guaifenesin (Robitussin) 100 mg PO Q4H PRN PRN Reason: Cough Lisinopril (Zestril) 5 mg PO DAILY [facility] Last Admin: 08/14/16 09:24 Dose: 5 mg Pantoprazole Sodium (Protonix Ec Tab) 40 mg PO DAILY [facility] Last Admin: 08/14/16 09:24 Dose: 40 mg Rosuvastatin Calcium (Crestor) 5 mg PO [facility] Last Admin: 08/13/16 22:58 Dose: 5 mg Spironolactone (Aldactone) 25 mg PO DAILY [facility] Last Admin: 08/14/16 09:22 Dose: 25 mg - Labs Labs: 08/13/16 07:38 08/14/16 07:05 PT 13.3 SECONDS (9.7-12.2) H D 08/13/16 07:38 INR 1.2 D 08/13/16 07:38 APTT 108 SECONDS (21-34) H* 08/11/16 18:47 Attending/Attestation - Attestation I have personally seen and examined this patient.: Yes I have fully participated in the care of the patient.: Yes I have reviewed all pertinent clinical information, including history, physical exam and plan: Yes Notes (Text): 08/14/16 10:09 Agree with resident note and findings
[2016-08-13] MEDS: Digoxin 125 mcg (0.125 mg) Tab PO SCH (17:58)
[2016-08-14] MEDS: Albuterol-Ipratrop 3 mg / 0.5 (3 ml) UD INH SCH ×4 (01:31→19:31)
--- NOTE | 2016-08-14 07:11 | CP.PCM.PN ---
<Isabel Sandhu - Last Filed: 08/14/16 10:42> Subjective - Date & Time of Evaluation Date of Evaluation: 08/14/16 Time of Evaluation: 10:00 - Subjective Subjective: PGY1 Medicine note for Dr. Gonzalez Patient seen and examined at bedside. Patient reports he continues to have some hematuria but it has improved since admission. Patient is also complaining of some trouble breathing but denies any pain in his chest and cough. Patient states his lower extremity swelling has improved slightly but is still present. He is ambulating and denies any fever, chills, abdominal pain, nausea, vomiting , bowel complaints, pain in his legs bilaterally. Objective - Vital Signs/Intake and Output Vital Signs (last 24 hours): Temp Pulse Resp BP Pulse Ox 98.0 F 95 H 20 117/78 100 08/13/16 23:33 08/13/16 23:33 08/13/16 23:33 08/13/16 23:33 08/13/16 23:33 - Medications Medications: Current Medications Albuterol/Ipratropium (Duoneb 3 Mg/0.5 Mg (3 Ml) Ud) 3 ml INH RQ6 [facility] Last Admin: 08/14/16 01:31 Dose: 3 ml Carvedilol (Coreg) 12.5 mg PO BID [facility] Last Admin: 08/13/16 17:57 Dose: 12.5 mg Digoxin (Lanoxin) 0.125 mg PO DAILY@1800 [facility] Last Admin: 08/13/16 17:58 Dose: 0.125 mg Furosemide (Lasix) 40 mg PO DAILY [facility] Guaifenesin (Robitussin) 100 mg PO Q4H PRN PRN Reason: Cough Lisinopril (Zestril) 5 mg PO DAILY [facility] Last Admin: 08/13/16 09:50 Dose: Not Given Pantoprazole Sodium (Protonix Ec Tab) 40 mg PO DAILY [facility] Last Admin: 08/13/16 09:45 Dose: 40 mg Pneumococcal Polyvalent Vaccine (Pneumovax 23 Vaccine) 0.5 ml IM .ONCE ONE Stop: 08/14/16 10:01 Rosuvastatin Calcium (Crestor) 5 mg PO HS [facility] Last Admin: 08/13/16 22:58 Dose: 5 mg Spironolactone (Aldactone) 25 mg PO DAILY [facility] Last Admin: 08/13/16 09:47 Dose: 25 mg - Labs Labs: 08/13/16 07:38 08/13/16 07:38 PT 13.3 SECONDS (9.7-12.2) H D 08/13/16 07:38 INR 1.2 D 08/13/16 07:38 APTT 108 SECONDS (21-34) H* 08/11/16 18:47 - Constitutional Appears: Non-toxic, No Acute Distress - Head Exam Head Exam: NORMAL INSPECTION - Eye Exam Eye Exam: Normal appearance. absent: Conjunctival injection, Scleral icterus - ENT Exam ENT Exam: Mucous Membranes Moist - Neck Exam Neck Exam: Normal Inspection. absent: Tenderness - Respiratory Exam Respiratory Exam: Rhonchi, Wheezes, NORMAL BREATHING PATTERN. absent: Accessory Muscle Use, Clear to Ausculation Bilateral, Rales, Respiratory Distress, Stridor - Cardiovascular Exam Cardiovascular Exam: +S1, +S2. absent: Bradycardia, Tachycardia, Murmur - GI/Abdominal Exam GI & Abdominal Exam: Soft, Normal Bowel Sounds. absent: Firm, Guarding, Rigid, Tenderness - Rectal Exam Rectal Exam: Deferred - Extremities Exam Extremities Exam: Normal Capillary Refill, Pedal Edema (+1 b/l) - Back Exam Back Exam: NORMAL INSPECTION. absent: rash noted - Neurological Exam Neurological Exam: Alert, Awake, Normal Gait, Oriented x3 - Psychiatric Exam Psychiatric exam: Normal Affect, Normal Mood - Skin Skin Exam: Dry, Intact, Normal Color, Warm Assessment and Plan - Assessment and Plan (Free Text) Assessment: 71 M PMHx of [place] x 3, a.fib on coumadin, PVD, CHF, CAD complaining of gross hematuria over 3 days and worsening shortness of breath and bilateral LE edema Plan: Supratherapeutic INR -INR supratherapeutic at 17 in the ER--> 4.1 --> 1.2 -Patient was given 1 dose stat vitamin K and transfused 1U FFP in the ER -Phytonadione 10mg IV daily --stopped on 08/13 -Will need to consider switching patient to alternative form of anticoagulation as patient's INR has been supratherapeutic in the past Chest pain r/o ACS -Resolved -Troponin 0.132 --> 0.1510--> normal -EKG ventricular paced rhythm with some PVCs and no acute changes -Dr. Cruz aware: recommends to continue current management -Patient had stress test on recent admission which showed areas of infarct Gross hematuria -Patient is on coumadin 5mg po daily- held at this time -Abd/pelvis CT: small to mod b/l pleural effusions; No evidence of nephrolithasis or obstructive uropathy; L inguinal hernia containing part of sigmoid colon and small amount of fluid; bony findings suspicious for ankylosing spondylitis; enlarged prostate gland -urine culture negative x24 hours -Urology Dr. Alvarez consulted- f/u recommendations Dyspnea on exertion -sat 100% on 3L NC -wheezing and trace rhonchi heard on lung exam -Duoneb 3ml INH Q6 -Dr. Casiano pulmonology consulted- f/u recommendations HTN -coreg 12.5mg po bid -lisinopril 5mg po daily CHF -BNP 7840 -Echo July 2016: EF 40-45%; hypokinesis in apical inferior wall; LV systolic function is mildly to moderately impaired; mitral regurgitation is trace; mild pulmonary HTN -Lasix 40mg IVP q8 stopped and changed to Lasix 40mg PO daily on 08/13 -aldactone 25mg daily -digoxin -coreg 12.5 BID A fib -hold coumadin -currently rate controlled -Digoxin daily CAD -hold ASA -crestor 5mg po qhs PPX -hold VTE ppx -protonix 40mg po daily -SCD c/i secondary to edema -Heart healthy diet with fluid restriction -Daily weight -strict Is and Os Plan discussed with Dr. Carlos Sandhu PGY1 <Warren Gonzalez Jr. - Last Filed: 08/19/16 09:38> Objective - Vital Signs/Intake and Output Vital Signs (last 24 hours): Temp Pulse Resp BP Pulse Ox 97.8 F 69 20 127/67 96 08/18/16 17:32 08/18/16 17:32 08/18/16 17:32 08/18/16 17:32 08/18/16 17:32 - Labs Labs: 08/17/16 16:30 08/18/16 08:09 PT 13.3 SECONDS (9.7-12.2) H D 08/13/16 07:38 INR 1.2 D 08/13/16 07:38 APTT 108 SECONDS (21-34) H* 08/11/16 18:47 Attending/Attestation - Attestation I have personally seen and examined this patient.: Yes I have fully participated in the care of the patient.: Yes I have reviewed all pertinent clinical information, including history, physical exam and plan: Yes Notes (Text): 08/19/16 09:38 Agree with resident note and plan of care
[2016-08-14 07:31] LABS: CHLORIDE 96 mmol/L (98-107); POTASSIUM 4.1 mmol/L (3.6-5.2); SODIUM 135 mmol/L (132-148)
[2016-08-14 07:33] LABS: GFR AFRICAN-AMERICAN > 60
[2016-08-14 07:34] LABS: ALKALINE PHOSPHATASE 57 U/L (38-126); ALT/SGPT 26 U/L (21-72); AST/SGOT 25 U/L (17-59); BILIRUBIN,TOTAL 0.9 mg/dL (0.2-1.3); BLOOD UREA NITROGEN 30 mg/dL (9-20); CALCIUM 8.2 mg/dl (8.6-10.4); CARBON DIOXIDE 34 mmol/L (22-30); GLUCOSE,RANDOM 134 mg/dL (75-110); TOTAL PROTEIN 6.2 g/dL (6.3-8.3)
[2016-08-14] MEDS: Pantoprazole 40 mg EC Tab PO SCH (09:24)
[2016-08-14] MEDS ORDERED: Pneumococcal 23-Valent Vaccine IM ONE (10:00)
[2016-08-14 10:14] LABS: BASO # 0.1 K/uL (0.0-0.2); BASO % 0.9 % (0.0-2.0); EOS # 0.4 K/uL (0.0-0.7); EOS % 5.4 % (0.0-4.0); HEMATOCRIT 33.9 % (35.0-51.0); LYMPH # 1.2 K/uL (1.0-4.3); LYMPH % 14.2 % (20.0-40.0); MEAN CELL VOLUME 90.5 fL (80.0-94.0); MEAN CORPUSCULAR HEMOGLOBIN 29.1 pg (27.0-31.0); MEAN CORPUSCULAR HGB CONC 32.1 g/dL (33.0-37.0); MEAN PLATELET VOLUME 9.6 fL (7.2-11.7); MONO # 1.1 K/uL (0.0-0.8); MONO % 13.6 % (0.0-10.0); NRBC % 0.1 % (0.0-2.0); RED CELL DISTRIBUTION WIDTH 14.7 % (11.5-14.5); WHITE BLOOD COUNT 8.2 K/uL (4.8-10.8)
--- NOTE | 2016-08-14 13:11 | VASCLAB ---
PROCEDURE: Lower Extremity Venous Duplex Exam. HISTORY: Swelling, shortness of breath, left leg pain PRIORS: None. TECHNIQUE: Bilateral common femoral, femoral, popliteal and posterior tibial, peroneal and great saphenous veins were evaluated. Flow was assessed with color Doppler, compressibility, assessment of phasic flow and augmentation response. Report prepared by KOMAL Cunningham FINDINGS: RIGHT: 1. Common Femoral Vein: 1.1. Compressibility - Fully compressible: Thrombus - None : Flow - Phasic: Augmentation -Normal: Reflux - None. 2. Femoral Vein: 2.1. Compressibility - Fully compressible: Thrombus - None : Flow - Phasic: Augmentation -Normal: Reflux - None. 3. Popliteal Vein: 3.1. Compressibility - Fully compressible: Thrombus - None : Flow - Phasic: Augmentation -Normal: Reflux - Severe >4.39 s 4. Posterior Tibial Vein: 4.1. Compressibility - Fully compressible: Thrombus - None: Flow - Phasic: Augmentation -Normal: Reflux - None. 5. Peroneal Vein: 5.1. Compressibility - Fully compressible: Thrombus - None: Flow - Phasic: Augmentation -Normal: Reflux - None. 6. Great Saphenous Vein: 6.1. Compressibility - Fully compressible: Thrombus - None: Flow - Phasic: Augmentation - Normal: Reflux - None. LEFT: 1. Common Femoral Vein: 1.1. Compressibility - Fully compressible: Thrombus - None: Flow - Phasic: Augmentation -Normal: Reflux - None. 2. Femoral Vein: 2.1. Compressibility - Fully compressible: Thrombus - None: Flow - Phasic: Augmentation -Normal: Reflux - None. 3. Popliteal Vein: 3.1. Compressibility - Fully compressible: Thrombus - None : Flow - Phasic: Augmentation -Normal: Reflux - None. 4. Posterior Tibial Vein: 4.1. Compressibility - Fully compressible: Thrombus - None: Flow - Phasic: Augmentation -Normal: Reflux - None. 5. Peroneal Vein: 5.1. Compressibility - Fully compressible: Thrombus - None: Flow - Phasic: Augmentation -Normal: Reflux - None. 6. Great Saphenous Vein: 6.1. Compressibility - Fully compressible: Thrombus - None: Flow - Phasic: Augmentation - Normal: Reflux - None. OTHER FINDINGS: Right: None significant. Left: None significant. IMPRESSION: Right: No evidence of deep or superficial vein thrombosis of the right lower extremity. Severe valvular incompetence of the right popliteal vein. Left: No evidence of deep or superficial vein thrombosis of the left lower extremity. Normal valve function noted of the left side.
--- NOTE | 2016-08-14 15:29 | PCM.URO ---
Urology Progress Note - Objective Lab Results Last 24 Hours: Laboratory Results - last 24 hr 08/14/16 08/14/16 07:05 10:11 WBC 8.2 RBC 3.75 L Hgb 10.9 L Hct 33.9 L MCV 90.5 MCH 29.1 MCHC 32.1 L RDW 14.7 H Plt Count 226 MPV 9.6 Neut % (Auto) 65.9 Lymph % (Auto) 14.2 L [place] % (Auto) 13.6 H Eos % (Auto) 5.4 H Baso % (Auto) 0.9 Neut # 5.4 Lymph # 1.2 [place] # 1.1 H Eos # 0.4 Baso # 0.1 Sodium 135 Potassium 4.1 Chloride 96 L Carbon Dioxide 34 H Anion Gap 9 L BUN 30 H Creatinine 0.7 L Est GFR ( Amer) > 60 Est GFR (Non-Af Amer) > 60 Random Glucose 134 H Calcium 8.2 L Total Bilirubin 0.9 AST 25 ALT 26 Alkaline Phosphatase 57 Total Protein 6.2 L Albumin 3.0 L Globulin 3.1 Albumin/Globulin Ratio 1.0 Intake & Output: Intake & Output 08/13/16 08/14/16 08/14/16 18:59 06:59 18:59 Intake Total 600 350 Output Total 450 Balance 600 -100 Intake: Oral 600 350 Output: Urine 450 Urine, Voided 450 Other: # Voids Urine, Voided 3 2 # Bowel Movements 1 1 Vital Signs: Vital Signs - 24 hr 08/13/16 08/13/16 08/13/16 16:00 17:57 23:00 Temperature 97.9 F Pulse Rate 90 92 H Respiratory 20 Rate Blood Pressure 109/60 112/80 O2 Sat by Pulse 98 Oximetry 08/13/16 08/14/16 08/14/16 23:33 07:05 09:22 Temperature 98.0 F 97.4 F L Pulse Rate 95 H 84 Respiratory 20 18 Rate Blood Pressure 117/78 120/73 120/73 O2 Sat by Pulse 100 100 Oximetry 08/14/16 08/14/16 09:23 12:43 Temperature Pulse Rate 76 Respiratory Rate Blood Pressure 120/73 O2 Sat by Pulse 96 Oximetry
--- NOTE | 2016-08-14 17:32 | CP.PCM.CON ---
History of Present Illness - History of Present Illness History of Present Illness: reason for consultation: shortness of breath 71 M PMHx of [place] x 3, a.fib on coumadin, PVD, CHF, CAD admitted complaining of gross hematuria over 3 days and worsening shortness of breath and bilateral LE edema. Patient denies any trauma or dysuria. Patient reports that he is unable to walk 1 block without having to stop twice to catch his breath and that he uses 2 pillows to sleep. He also complained of some chest pain with the shortness of breath. PMHx: [place], a.fib, PVD, CHF, CAD Meds: please see chart ALL: NKDA PSurg: hernia repair, pacemaker/ AICD FamHx: denies SocHx: former smoker quit 1.5 years ago, denies alcohol and drugs Review of Systems - Review of Systems Systems not reviewed;Unavailable: Uncooperative Past Patient History - Infectious Disease Hx of Infectious Diseases: None - Past Medical History & Family History Past Medical History?: No - Past Social History Smoking Status: Former Smoker - CARDIAC Hx Congestive Heart Failure: Yes Hx Hypertension: Yes - PULMONARY Hx Chronic Obstructive Pulmonary Disease (COPD): Yes (Emphysema) - NEUROLOGICAL Hx Neurological Disorder: No - HEENT Hx HEENT Problems: No - RENAL Hx Chronic Kidney Disease: No - ENDOCRINE/METABOLIC Hx Endocrine Disorders: No - HEMATOLOGICAL/ONCOLOGICAL Hx Human Immunodeficiency Virus (HIV): No - INTEGUMENTARY Hx Dermatological Problems: No - MUSCULOSKELETAL/RHEUMATOLOGICAL Hx Musculoskeletal Disorders: No Hx Falls: No - GASTROINTESTINAL Hx Gastrointestinal Disorders: No - GENITOURINARY/GYNECOLOGICAL Hx Genitourinary Disorders: No - PSYCHIATRIC Hx Substance Use: No - SURGICAL HISTORY Hx Surgeries: Yes Other/Comment: hernia repair - ANESTHESIA Hx Anesthesia: Yes Hx Anesthesia Reactions: No Meds Allergies/Adverse Reactions: Allergies Allergy/AdvReac Type Severity Reaction Status Date / Time No Known Allergies Allergy Verified 08/11/16 16:31 - Medications Medications: Current Medications Albuterol/Ipratropium (Duoneb 3 Mg/0.5 Mg (3 Ml) Ud) 3 ml INH RQ6 [facility] Last Admin: 08/14/16 14:07 Dose: 3 ml Carvedilol (Coreg) 12.5 mg PO BID [facility] Last Admin: 08/14/16 09:22 Dose: 12.5 mg Digoxin (Lanoxin) 0.125 mg PO DAILY@1800 [facility] Last Admin: 08/13/16 17:58 Dose: 0.125 mg Furosemide (Lasix) 40 mg PO DAILY [facility] Last Admin: 08/14/16 09:23 Dose: 40 mg Guaifenesin (Robitussin) 100 mg PO Q4H PRN PRN Reason: Cough Lisinopril (Zestril) 5 mg PO DAILY [facility] Last Admin: 08/14/16 09:24 Dose: 5 mg Pantoprazole Sodium (Protonix Ec Tab) 40 mg PO DAILY [facility] Last Admin: 08/14/16 09:24 Dose: 40 mg Rosuvastatin Calcium (Crestor) 5 mg PO HS [facility] Last Admin: 08/13/16 22:58 Dose: 5 mg Spironolactone (Aldactone) 25 mg PO DAILY [facility] Last Admin: 08/14/16 09:22 Dose: 25 mg Physical Exam - Head Exam Head Exam: ATRAUMATIC, NORMOCEPHALIC - Eye Exam Eye Exam: Normal appearance - ENT Exam ENT Exam: Mucous Membranes Moist - Neck Exam Neck exam: Positive for: Normal Inspection - Respiratory Exam Respiratory Exam: Clear to Auscultation Bilateral - Cardiovascular Exam Cardiovascular Exam: REGULAR RHYTHM - GI/Abdominal Exam GI & Abdominal Exam: Normal Bowel Sounds, Soft Results - Vital Signs Recent Vital Signs: Last Vital Signs Temp 97.4 F L 08/14/16 16:07 Pulse 82 08/14/16 16:07 Resp 20 08/14/16 16:07 BP 120/71 08/14/16 16:07 Pulse Ox 96 08/14/16 16:07 - Labs Result Diagrams: 08/14/16 10:11 08/14/16 07:05 Labs: Laboratory Results - last 24 hr 08/14/16 08/14/16 07:05 10:11 WBC 8.2 RBC 3.75 L Hgb 10.9 L Hct 33.9 L MCV 90.5 MCH 29.1 MCHC 32.1 L RDW 14.7 H Plt Count 226 MPV 9.6 Neut % (Auto) 65.9 Lymph % (Auto) 14.2 L [place] % (Auto) 13.6 H Eos % (Auto) 5.4 H Baso % (Auto) 0.9 Neut # 5.4 Lymph # 1.2 [place] # 1.1 H Eos # 0.4 Baso # 0.1 Sodium 135 Potassium 4.1 Chloride 96 L Carbon Dioxide 34 H Anion Gap 9 L BUN 30 H Creatinine 0.7 L Est GFR ( Amer) > 60 Est GFR (Non-Af Amer) > 60 Random Glucose 134 H Calcium 8.2 L Total Bilirubin 0.9 AST 25 ALT 26 Alkaline Phosphatase 57 Total Protein 6.2 L Albumin 3.0 L Globulin 3.1 Albumin/Globulin Ratio 1.0 Assessment & Plan (1) COPD exacerbation Status: Acute Comment: continue nebulizer treatment and add spiriva. CAT scan of the abdomen consistent with bilateral pleural effusion with possible loculation. CAT scan of the chest and IR for thoracentesis
[2016-08-14] MEDS: Digoxin 125 mcg (0.125 mg) Tab PO SCH (18:24)
--- NOTE | 2016-08-15 06:58 | CP.PCM.PN ---
Subjective - Date & Time of Evaluation Date of Evaluation: 08/15/16 Time of Evaluation: 07:15 - Subjective Subjective: PGY1 Medicine note for Dr. Gonzalez Patient seen and examined at bedside. Patient continues to have dyspnea at rest and on exertion. He denies any cough or chest pain. He still has swelling in his LE bilaterally. Patient's hematuria has resolved. Denies fever, chills, headache, dizziness, palpitations, abdominal pain, nausea, vomiting, bowel/ bladder complaints, pain in his legs bilaterally. Objective - Vital Signs/Intake and Output Vital Signs (last 24 hours): Temp Pulse Resp BP Pulse Ox 98.3 F 83 20 123/65 98 08/15/16 00:00 08/15/16 00:00 08/15/16 00:00 08/15/16 00:00 08/15/16 00:00 Intake and Output: 08/14/16 08/15/16 18:59 06:59 Intake Total 350 Output Total 450 Balance -100 - Medications Medications: Current Medications Albuterol/Ipratropium (Duoneb 3 Mg/0.5 Mg (3 Ml) Ud) 3 ml INH RQ6 [facility] Last Admin: 08/14/16 19:31 Dose: 3 ml Carvedilol (Coreg) 12.5 mg PO BID [facility] Last Admin: 08/14/16 18:23 Dose: 12.5 mg Digoxin (Lanoxin) 0.125 mg PO DAILY@1800 [facility] Last Admin: 08/14/16 18:24 Dose: 0.125 mg Furosemide (Lasix) 40 mg PO DAILY [facility] Last Admin: 08/14/16 09:23 Dose: 40 mg Guaifenesin (Robitussin) 100 mg PO Q4H PRN PRN Reason: Cough Lisinopril (Zestril) 5 mg PO DAILY [facility] Last Admin: 08/14/16 09:24 Dose: 5 mg Pantoprazole Sodium (Protonix Ec Tab) 40 mg PO DAILY [facility] Last Admin: 08/14/16 09:24 Dose: 40 mg Rosuvastatin Calcium (Crestor) 5 mg PO HS [facility] Last Admin: 08/14/16 21:18 Dose: 5 mg Spironolactone (Aldactone) 25 mg PO DAILY [facility] Last Admin: 08/14/16 09:22 Dose: 25 mg - Labs Labs: 08/14/16 10:11 08/14/16 07:05 PT 13.3 SECONDS (9.7-12.2) H D 08/13/16 07:38 INR 1.2 D 08/13/16 07:38 APTT 108 SECONDS (21-34) H* 08/11/16 18:47 - Constitutional Appears: Non-toxic, No Acute Distress - Head Exam Head Exam: NORMAL INSPECTION - Eye Exam Eye Exam: Normal appearance. absent: Conjunctival injection, Scleral icterus - ENT Exam ENT Exam: Mucous Membranes Moist - Neck Exam Neck Exam: Normal Inspection. absent: Tenderness - Respiratory Exam Respiratory Exam: Clear to Ausculation Bilateral, Rhonchi, Wheezes. absent: Accessory Muscle Use, Rales, Respiratory Distress, NORMAL BREATHING PATTERN - Cardiovascular Exam Cardiovascular Exam: REGULAR RHYTHM, RRR, +S1, +S2 - GI/Abdominal Exam GI & Abdominal Exam: Soft, Normal Bowel Sounds. absent: Firm, Guarding, Rigid, Tenderness - Rectal Exam Rectal Exam: Deferred - Extremities Exam Extremities Exam: Normal Capillary Refill, Pedal Edema (+1 b/l) - Back Exam Back Exam: NORMAL INSPECTION. absent: rash noted - Neurological Exam Neurological Exam: Alert, Awake, Normal Gait, Oriented x3 - Psychiatric Exam Psychiatric exam: Normal Affect, Normal Mood - Skin Skin Exam: Dry, Intact, Normal Color, Warm Assessment and Plan - Assessment and Plan (Free Text) Assessment: 71 M PMHx of [place] x 3, a.fib on coumadin, PVD, CHF, CAD complaining of gross hematuria over 3 days and worsening shortness of breath and bilateral LE edema Plan: Supratherapeutic INR -INR supratherapeutic at 17 in the ER--> 4.1 --> 1.2 -Patient was given 1 dose stat vitamin K and transfused 1U FFP in the ER -Phytonadione 10mg IV daily --stopped on 08/13 -Will need to consider switching patient to alternative form of anticoagulation as patient's INR has been supratherapeutic in the past Chest pain r/o ACS -Resolved -Troponin 0.132 --> 0.1510--> normal -EKG ventricular paced rhythm with some PVCs and no acute changes -Dr. Cruz aware: recommends to continue current management -Patient had stress test on recent admission which showed areas of infarct Gross hematuria -Patient is on coumadin 5mg po daily- held at this time -Abd/pelvis CT: small to mod b/l pleural effusions; No evidence of nephrolithasis or obstructive uropathy; L inguinal hernia containing part of sigmoid colon and small amount of fluid; bony findings suspicious for ankylosing spondylitis; enlarged prostate gland -urine culture negative x24 hours -Urology Dr. Alvarez consulted- f/u recommendations Dyspnea on exertion -sat 100% on 3L NC -wheezing and trace rhonchi heard on lung exam -Duoneb 3ml INH Q6 -Spiriva 18mcg INH q24 -Robitussin 100mg po q4 prn cough -f/u chest CT -consider IR for possible thoracentesis after CT as per pulm reccs -Dr. Casiano pulmonology consulted HTN -coreg 12.5mg po bid -lisinopril 5mg po daily CHF -BNP 7840 -Echo July 2016: EF 40-45%; hypokinesis in apical inferior wall; LV systolic function is mildly to moderately impaired; mitral regurgitation is trace; mild pulmonary HTN -Lasix 40mg IVP q8 stopped and changed to Lasix 40mg PO daily on 08/13 -aldactone 25mg daily -digoxin -coreg 12.5 BID A fib -hold coumadin -currently rate controlled -Digoxin daily CAD -hold ASA -crestor 5mg po qhs PPX -hold VTE ppx -protonix 40mg po daily -SCD c/i secondary to edema -Heart healthy diet with fluid restriction -Daily weight -strict Is and Os Plan discussed with Dr. Carlos Sandhu PGY1
[2016-08-15] MEDS: Albuterol-Ipratrop 3 mg / 0.5 (3 ml) UD INH SCH ×3 (07:26→20:30)
[2016-08-15 08:42] LABS: BASO # 0.1 K/uL (0.0-0.2); BASO % 0.9 % (0.0-2.0); EOS # 0.4 K/uL (0.0-0.7); EOS % 5.3 % (0.0-4.0); HEMATOCRIT 32.6 % (35.0-51.0); LYMPH # 1.2 K/uL (1.0-4.3); MEAN CELL VOLUME 90.3 fL (80.0-94.0); MEAN CORPUSCULAR HEMOGLOBIN 29.2 pg (27.0-31.0); MEAN CORPUSCULAR HGB CONC 32.3 g/dL (33.0-37.0); MEAN PLATELET VOLUME 8.9 fL (7.2-11.7); MONO % 11.8 % (0.0-10.0); RED CELL DISTRIBUTION WIDTH 14.5 % (11.5-14.5); WHITE BLOOD COUNT 8.3 K/uL (4.8-10.8)
[2016-08-15 09:05] LABS: CHLORIDE 98 mmol/L (98-107); POTASSIUM 4.5 mmol/L (3.6-5.2); SODIUM 137 mmol/L (132-148)
[2016-08-15 09:08] LABS: ALB/GLOB RATIO 0.8 (1.0-2.1); ALKALINE PHOSPHATASE 57 U/L (38-126); AST/SGOT 25 U/L (17-59); BILIRUBIN,TOTAL 0.6 mg/dL (0.2-1.3); BLOOD UREA NITROGEN 29 mg/dL (9-20); CALCIUM 8.2 mg/dl (8.6-10.4); CARBON DIOXIDE 36 mmol/L (22-30); GFR AFRICAN-AMERICAN > 60; GLUCOSE,RANDOM 82 mg/dL (75-110); PHOSPHOROUS 3.4 mg/dL (2.5-4.5); TOTAL PROTEIN 6.1 g/dL (6.3-8.3)
[2016-08-15 09:09] LABS: ALT/SGPT 35 U/L (21-72); MAGNESIUM 2.2 mg/dL (1.6-2.3)
[2016-08-15] MEDS: Pantoprazole 40 mg EC Tab PO SCH (10:35)
[2016-08-15] MEDS ORDERED: Iodixanol 320 MG/ML 100 ML BOTTLE IV ONE (12:22)
[2016-08-15] MEDS: Potassium Chloride 20 mEq ER Tab PO SCH (15:16)
--- NOTE | 2016-08-15 15:39 | CT ---
CT chest with IV contrast Indication: Shortness of breath Technique: Contiguous axial images were obtained through the chest with intravenous contrast enhancement. Sagittal and coronal reconstructions were generated and reviewed. This CT exam was performed using 1 or more of the falling dose reduction techniques: Automated exposure control, adjustment of the MAA and/or kV according to patient size, and/or use of iterative reconstruction technique. IV Contrast: 100 mL Visipaque Radiation dose (DLP): 396.11 MGy-cm. Comparison: Chest x-ray performed 07/11/16 Findings: Visualized portions of the inferior thyroid gland appear unremarkable. The mediastinal and hilar vascular structures appear within normal limits. Left-sided AICD. Cardiomegaly. Coronary artery calcifications. Fluid noted within the anterior pericardium. Prominent but sub cm prevascular mediastinal lymph nodes, nonspecific. 6.3 x 5.5 cm left lung apex hypodensity measuring approximately 10 HU compatible with loculated effusion. Additional regions of probable loculated effusions bilaterally. Small layering pleural effusion. Mild right basilar compressive consolidation. No pneumothorax. Limited visualization of the upper abdomen appears grossly unremarkable. Degenerative changes. Osseous demineralization. Exaggerated thoracic kyphosis. Impression: Left-sided AICD. Cardiomegaly. Coronary artery calcifications. Fluid noted within the anterior pericardium. Prominent but sub cm prevascular mediastinal lymph nodes, nonspecific. 6.3 x 5.5 cm left lung apex hypodensity measuring approximately 10 HU compatible with loculated effusion. Additional regions of probable loculated effusions bilaterally. Small layering pleural effusion. Mild right basilar compressive consolidation.
--- NOTE | 2016-08-15 17:11 | CP.PCM.PN ---
Subjective - Date & Time of Evaluation Date of Evaluation: 08/15/16 Time of Evaluation: 13:00 - Subjective Subjective: Patient seen and examined. Complained of dyspnea on minimal exertion but denies any cough CAT scan of the chest consistent with left loculated effusion Denies fevers chills, denies chest pain Objective - Vital Signs/Intake and Output Vital Signs (last 24 hours): Temp Pulse Resp BP Pulse Ox 97.3 F L 71 20 124/77 97 08/15/16 16:00 08/15/16 16:00 08/15/16 16:00 08/15/16 16:00 08/15/16 16:00 - Medications Medications: Current Medications Albuterol/Ipratropium (Duoneb 3 Mg/0.5 Mg (3 Ml) Ud) 3 ml INH RQ6 [facility] Last Admin: 08/15/16 13:27 Dose: 3 ml Carvedilol (Coreg) 12.5 mg PO BID [facility] Last Admin: 08/15/16 10:35 Dose: 12.5 mg Digoxin (Lanoxin) 0.125 mg PO DAILY@1800 [facility] Last Admin: 08/14/16 18:24 Dose: 0.125 mg Furosemide (Lasix) 40 mg PO DAILY [facility] Last Admin: 08/15/16 10:34 Dose: 40 mg Guaifenesin (Robitussin) 100 mg PO Q4H PRN PRN Reason: Cough Lisinopril (Zestril) 5 mg PO DAILY [facility] Last Admin: 08/15/16 10:35 Dose: 5 mg Pantoprazole Sodium (Protonix Ec Tab) 40 mg PO DAILY [facility] Last Admin: 08/15/16 10:35 Dose: 40 mg Potassium Chloride (K-Dur 20 Meq Er Tab) 40 meq PO DAILY [facility] Last Admin: 08/15/16 15:16 Dose: 40 meq Rosuvastatin Calcium (Crestor) 5 mg PO HS [facility] Last Admin: 08/14/16 21:18 Dose: 5 mg Spironolactone (Aldactone) 25 mg PO DAILY [facility] Last Admin: 08/15/16 10:34 Dose: 25 mg Tiotropium [place] (Spiriva) 18 mcg INH RQ24 [facility] - Labs Labs: 08/15/16 08:32 08/15/16 08:32 PT 13.3 SECONDS (9.7-12.2) H D 08/13/16 07:38 INR 1.2 D 08/13/16 07:38 APTT 108 SECONDS (21-34) H* 08/11/16 18:47 - Head Exam Head Exam: ATRAUMATIC, NORMOCEPHALIC - Eye Exam Eye Exam: Normal appearance - ENT Exam ENT Exam: Mucous Membranes Moist - Neck Exam Neck Exam: Normal Inspection - Respiratory Exam Respiratory Exam: Decreased Breath Sounds - Cardiovascular Exam Cardiovascular Exam: REGULAR RHYTHM - GI/Abdominal Exam GI & Abdominal Exam: Soft, Normal Bowel Sounds - Extremities Exam Extremities Exam: Normal Inspection Assessment and Plan (1) Pleural effusion Assessment & Plan: CAT scan of the chest consistent with left apical loculated effusion Continue antibiotics and IV for possible Thoracentesis Continue antibiotics, bronchodilators Status: Acute (2) COPD exacerbation Status: Acute
--- NOTE | 2016-08-15 19:01 | CARD ---
APPROVED REPORT EKG Measurement Heart [id number] <Conclusion> Atrial flutter Intermittent Ventricular-paced rhythm with occasional premature ventricular complexe Intrinsic rhythm LBBB Abnormal ECG
[2016-08-15] MEDS: Digoxin 125 mcg (0.125 mg) Tab PO SCH (19:15)
[2016-08-16] MEDS: Albuterol-Ipratrop 3 mg / 0.5 (3 ml) UD INH SCH ×4 (03:49→19:54)
--- NOTE | 2016-08-16 07:05 | CP.PCM.PN ---
<EdsonIsabel - Last Filed: 08/18/16 07:17> Subjective - Date & Time of Evaluation Date of Evaluation: 08/16/16 Time of Evaluation: 09:00 - Subjective Subjective: PGY1 Medicine note for Dr. Gonzalez Patient seen and examined at bedside. Patient continues to have dyspnea at rest and on exertion and swelling in his LE bilaterally although slightly improved. He denies any cough or chest pain. Patient's hematuria has resolved. Denies fever, chills, headache, dizziness, palpitations, abdominal pain, nausea, vomiting, bowel/bladder complaints, pain in his legs bilaterally. Patient is eager to go home. Objective - Vital Signs/Intake and Output Vital Signs (last 24 hours): Temp Pulse Resp BP Pulse Ox 97.8 F 74 20 106/69 98 08/15/16 23:40 08/16/16 00:00 08/15/16 23:40 08/15/16 23:40 08/15/16 23:40 Intake and Output: 08/16/16 08/16/16 06:59 18:59 Intake Total 100 Balance 100 - Medications Medications: Current Medications Albuterol/Ipratropium (Duoneb 3 Mg/0.5 Mg (3 Ml) Ud) 3 ml INH RQ6 [facility] Last Admin: 08/16/16 03:49 Dose: Not Given Carvedilol (Coreg) 12.5 mg PO BID [facility] Last Admin: 08/15/16 19:14 Dose: 12.5 mg Digoxin (Lanoxin) 0.125 mg PO DAILY@1800 [facility] Last Admin: 08/15/16 19:15 Dose: 0.125 mg Furosemide (Lasix) 40 mg PO DAILY [facility] Last Admin: 08/15/16 10:34 Dose: 40 mg Guaifenesin (Robitussin) 100 mg PO Q4H PRN PRN Reason: Cough Lisinopril (Zestril) 5 mg PO DAILY [facility] Last Admin: 08/15/16 10:35 Dose: 5 mg Pantoprazole Sodium (Protonix Ec Tab) 40 mg PO DAILY [facility] Last Admin: 08/15/16 10:35 Dose: 40 mg Potassium Chloride (K-Dur 20 Meq Er Tab) 40 meq PO DAILY [facility] Last Admin: 08/15/16 15:16 Dose: 40 meq Rosuvastatin Calcium (Crestor) 5 mg PO HS [facility] Last Admin: 08/15/16 22:07 Dose: 5 mg Spironolactone (Aldactone) 25 mg PO DAILY [facility] Last Admin: 08/15/16 10:34 Dose: 25 mg Tiotropium [place] (Spiriva) 18 mcg INH RQ24 [facility] - Labs Labs: 08/15/16 08:32 08/15/16 08:32 PT 13.3 SECONDS (9.7-12.2) H D 08/13/16 07:38 INR 1.2 D 08/13/16 07:38 APTT 108 SECONDS (21-34) H* 08/11/16 18:47 - Constitutional Appears: Non-toxic, No Acute Distress - Head Exam Head Exam: NORMAL INSPECTION - Eye Exam Eye Exam: Normal appearance. absent: Conjunctival injection, Scleral icterus - ENT Exam ENT Exam: Mucous Membranes Dry - Neck Exam Neck Exam: Full ROM, Normal Inspection - Respiratory Exam Respiratory Exam: Decreased Breath Sounds, Rhonchi, NORMAL BREATHING PATTERN. absent: Accessory Muscle Use, Rales, Wheezes, Respiratory Distress - Cardiovascular Exam Cardiovascular Exam: REGULAR RHYTHM, RRR, +S1, +S2 - GI/Abdominal Exam GI & Abdominal Exam: Soft, Normal Bowel Sounds. absent: Firm, Guarding, Rigid, Tenderness - Extremities Exam Extremities Exam: Normal Capillary Refill, Pedal Edema. absent: Calf Tenderness , Tenderness - Back Exam Back Exam: NORMAL INSPECTION. absent: rash noted - Neurological Exam Neurological Exam: Alert, Awake, Normal Gait, Oriented x3 - Psychiatric Exam Psychiatric exam: Flat Affect, Normal Mood - Skin Skin Exam: Dry, Intact, Pallor, Warm Assessment and Plan - Assessment and Plan (Free Text) Assessment: 71 M PMHx of [place] x 3, a.fib on coumadin, PVD, CHF, CAD complaining of gross hematuria over 3 days and worsening shortness of breath and bilateral LE edema Plan: Dyspnea on exertion -sat 100% on 3L NC -wheezing and trace rhonchi heard on lung exam -Duoneb 3ml INH Q6 -Spiriva 18mcg INH q24 -Robitussin 100mg po q4 prn cough -CT chest w/ contrast: L sided AICD. Cardiomegaly. Coronary artery calcifications. Fluid noted within anterior pericardium. Prominent but sub cm prevascular mediastinal lymph nodes. 6.3 x 5.5cm L lung apex hypdensity measuring approx 10HU compatible with loculated effusion. Additional regions of probable loculated effusions bilaterally. Small layering pleural effusion. Mild R basilar compressive consolidation. -IR unable to do thoracentesis as there was not enough fluid -ID Dr. Olson consulted for left upper lung loculated effusion -Dr. Casiano pulmonology consulted Gross hematuria -Patient is on coumadin 5mg po daily- held at this time -Abd/pelvis CT: small to mod b/l pleural effusions; No evidence of nephrolithasis or obstructive uropathy; L inguinal hernia containing part of sigmoid colon and small amount of fluid; bony findings suspicious for ankylosing spondylitis; enlarged prostate gland -urine culture negative x24 hours -Urology Dr. Alvarez consulted- f/u recommendations Supratherapeutic INR -INR supratherapeutic at 17 in the ER--> 4.1 --> 1.2 -Patient was given 1 dose stat vitamin K and transfused 1U FFP in the ER -Phytonadione 10mg IV daily --stopped on 08/13 -Will need to consider switching patient to alternative form of anticoagulation as patient's INR has been supratherapeutic in the past Chest pain r/o ACS -Resolved -Troponin 0.132 --> 0.1510--> normal -EKG ventricular paced rhythm with some PVCs and no acute changes -Dr. Cruz aware: recommends to continue current management -Patient had stress test on recent admission which showed areas of infarct HTN -coreg 12.5mg po bid -lisinopril 5mg po daily CHF -BNP 7840 -Echo July 2016: EF 40-45%; hypokinesis in apical inferior wall; LV systolic function is mildly to moderately impaired; mitral regurgitation is trace; mild pulmonary HTN -Lasix 40mg IVP q8 stopped and changed to Lasix 40mg PO daily on 08/13 -aldactone 25mg daily -digoxin -coreg 12.5 BID A fib -hold coumadin -currently rate controlled -Digoxin daily CAD -hold ASA -crestor 5mg po qhs PPX -hold VTE ppx -protonix 40mg po daily -SCD c/i secondary to edema -Heart healthy diet with fluid restriction -Daily weight -strict Is and Os Plan discussed with Dr. Carlos Sandhu PGY1 <Warren Gonzalez Jr. - Last Filed: 08/19/16 09:40> Objective - Vital Signs/Intake and Output Vital Signs (last 24 hours): Temp Pulse Resp BP Pulse Ox 97.8 F 69 20 127/67 96 08/18/16 17:32 08/18/16 17:32 08/18/16 17:32 08/18/16 17:32 08/18/16 17:32 - Labs Labs: 08/17/16 16:30 08/18/16 08:09 PT 13.3 SECONDS (9.7-12.2) H D 08/13/16 07:38 INR 1.2 D 08/13/16 07:38 APTT 108 SECONDS (21-34) H* 08/11/16 18:47 Attending/Attestation - Attestation I have personally seen and examined this patient.: Yes I have fully participated in the care of the patient.: Yes I have reviewed all pertinent clinical information, including history, physical exam and plan: Yes Notes (Text): 08/19/16 09:40 Agree with resident note findings and plan of care
[2016-08-16] MEDS: Tiotropium 18 mcg Cap For Inhalation INH SCH (07:13)
[2016-08-16 08:09] LABS: BASO # 0.1 K/uL (0.0-0.2); BASO % 1.2 % (0.0-2.0); EOS # 0.3 K/uL (0.0-0.7); EOS % 4.5 % (0.0-4.0); LYMPH # 1.1 K/uL (1.0-4.3); LYMPH % 14.5 % (20.0-40.0); MEAN CELL VOLUME 89.7 fL (80.0-94.0); MEAN CORPUSCULAR HEMOGLOBIN 28.6 pg (27.0-31.0); MEAN CORPUSCULAR HGB CONC 31.8 g/dL (33.0-37.0); MEAN PLATELET VOLUME 8.7 fL (7.2-11.7); MONO # 0.9 K/uL (0.0-0.8); RED CELL DISTRIBUTION WIDTH 14.6 % (11.5-14.5); WHITE BLOOD COUNT 7.6 K/uL (4.8-10.8)
[2016-08-16 08:38] LABS: CHLORIDE 100 mmol/L (98-107)
[2016-08-16 08:39] LABS: POTASSIUM 4.7 mmol/L (3.6-5.2); SODIUM 138 mmol/L (132-148)
[2016-08-16 08:41] LABS: CARBON DIOXIDE 32 mmol/L (22-30); GFR AFRICAN-AMERICAN > 60
[2016-08-16 08:42] LABS: ALKALINE PHOSPHATASE 57 U/L (38-126); ALT/SGPT 24 U/L (21-72); AST/SGOT 26 U/L (17-59); BILIRUBIN,TOTAL 0.7 mg/dL (0.2-1.3); BLOOD UREA NITROGEN 27 mg/dL (9-20); CALCIUM 8.2 mg/dl (8.6-10.4); GLUCOSE,RANDOM 89 mg/dL (75-110); PHOSPHOROUS 3.5 mg/dL (2.5-4.5); TOTAL PROTEIN 6.2 g/dL (6.3-8.3)
[2016-08-16 08:43] LABS: MAGNESIUM 2.3 mg/dL (1.6-2.3)
[2016-08-16] MEDS: Pantoprazole 40 mg EC Tab PO SCH (10:05)
[2016-08-16] MEDS: Potassium Chloride 20 mEq ER Tab PO SCH (10:06)
--- NOTE | 2016-08-16 13:24 | US ---
PROCEDURE: Ultrasound of chest HISTORY: RUBEN PL EFF, LT THORA DONE BY DR MARTINEZ COMPARISON: TECHNIQUE: Limited ultrasound of the left and right chest performed using a curved probe. FINDINGS: No significant pleural effusion identified for thoracentesis. IMPRESSION: Significant pleural effusions after thoracentesis.
--- NOTE | 2016-08-16 16:25 | CP.PCM.PN ---
Subjective - Date & Time of Evaluation Date of Evaluation: 08/16/16 Time of Evaluation: 11:00 - Subjective Subjective: patient seen and examined. Dyspnea on exertion and slight cough Seen by IR and thoracentesis could not be performed Afebrile Objective - Vital Signs/Intake and Output Vital Signs (last 24 hours): Temp Pulse Resp BP Pulse Ox 97.4 F L 78 18 107/60 96 08/16/16 15:45 08/16/16 15:45 08/16/16 15:45 08/16/16 15:45 08/16/16 15:45 Intake and Output: 08/16/16 08/16/16 06:59 18:59 Intake Total 100 Output Total 250 Balance 100 -250 - Medications Medications: Current Medications Albuterol/Ipratropium (Duoneb 3 Mg/0.5 Mg (3 Ml) Ud) 3 ml INH RQ6 [facility] Last Admin: 08/16/16 13:22 Dose: 3 ml Carvedilol (Coreg) 12.5 mg PO BID [facility] Last Admin: 08/16/16 10:05 Dose: 12.5 mg Digoxin (Lanoxin) 0.125 mg PO DAILY@1800 [facility] Last Admin: 08/15/16 19:15 Dose: 0.125 mg Furosemide (Lasix) 40 mg PO DAILY [facility] Last Admin: 08/16/16 10:05 Dose: 40 mg Guaifenesin (Robitussin) 100 mg PO Q4H PRN PRN Reason: Cough Lisinopril (Zestril) 5 mg PO DAILY [facility] Last Admin: 08/16/16 10:05 Dose: 5 mg Pantoprazole Sodium (Protonix Ec Tab) 40 mg PO DAILY [facility] Last Admin: 08/16/16 10:05 Dose: 40 mg Potassium Chloride (K-Dur 20 Meq Er Tab) 40 meq PO DAILY [facility] Last Admin: 08/16/16 10:06 Dose: 40 meq Rosuvastatin Calcium (Crestor) 5 mg PO HS [facility] Last Admin: 08/15/16 22:07 Dose: 5 mg Spironolactone (Aldactone) 25 mg PO DAILY [facility] Last Admin: 08/16/16 10:05 Dose: 25 mg Tiotropium [place] (Spiriva) 18 mcg INH RQ24 [facility] Last Admin: 08/16/16 07:13 Dose: 18 mcg - Labs Labs: 08/16/16 08:03 08/16/16 08:03 PT 13.3 SECONDS (9.7-12.2) H D 08/13/16 07:38 INR 1.2 D 08/13/16 07:38 APTT 108 SECONDS (21-34) H* 08/11/16 18:47 - Constitutional Appears: No Acute Distress - Head Exam Head Exam: ATRAUMATIC, NORMOCEPHALIC - Eye Exam Eye Exam: Normal appearance - ENT Exam ENT Exam: Mucous Membranes Moist - Respiratory Exam Respiratory Exam: Decreased Breath Sounds - Cardiovascular Exam Cardiovascular Exam: REGULAR RHYTHM - GI/Abdominal Exam GI & Abdominal Exam: Soft, Normal Bowel Sounds Assessment and Plan (1) Pleural effusion Assessment & Plan: loculated pleural effusion on CAT scan of the chest Seen by IR Continue antibiotics and consider ID evalua Consider thoracic evaluation Status: Acute (2) COPD exacerbation Status: Acute
[2016-08-16] MEDS: Digoxin 125 mcg (0.125 mg) Tab PO SCH (17:17)
[2016-08-16 17:18] VITALS: PULSE 108
--- NOTE | 2016-08-16 20:06 | CP.PCM.CON ---
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 Patient denies any trauma or history of kidney stones or nephrolithiasis. Patient was found to have supratherapeutic INR. As reported patient has had few admissions for supratherapeutic INR. Patient presently complains off dyspnea on exertion and states he is unable to walk one block without having to stop TWICE.. PATIENT DENIES ANY FEVER OR CHILLS. COMPLAINS OF DRY COUGH INTERMITTENTLY. Patient had CT chest on 08/15/16 with contrast which showed left AICD, cardiomegaly. Left lung apex 6.3 x 5.5 cm loculated rule effusion. Small layering pleural effusions. Mild right basilar compressive consolidation with no pneumothorax. Patient went for IR drainage of the pleural effusions today but could not be performed as insufficient fluid in the pleural space. Patient had duplex venous studies this admission and is negative for DVT. Infectious disease consultation requested by Dr. Holguin for bilateral pleural effusion. history Limited as patient unable to give much details. Events noted as per chart and staff on-duty. PMHx: FL, a.fib, PVD, CHF, CAD Meds: please see chart ALL: NKDA PSurg: hernia repair, pacemaker/ AICD left chest FamHx: denies SocHx: former smoker quit 1.5 years ago, denies alcohol and drugs Review of Systems - Constitutional Constitutional: Fatigue, Weakness. absent: Chills, Fever - Cardiovascular Cardiovascular: Chest Pain, Dyspnea on Exertion, Irregular Heart Rhythm, Paroxysmal Nocturnal Dyspnea, Pedal Edema - Respiratory Respiratory: Cough, Dyspnea on Exertion. absent: Hemoptysis - Gastrointestinal Gastrointestinal: absent: Diarrhea, Heartburn, Vomiting - Genitourinary Genitourinary: Urinary Incontinence, Voiding Freq/Small Amts. absent: Difficulty Urinating, Dysuria, Urinary Hesitance - Integumentary Integumentary: Hirsutism - Neurological Neurological: absent: Headaches - Hematologic/Lymphatic Hematologic: As Per HPI. absent: Easy Bleeding, Lymphadenopathy Past Patient History - Infectious Disease Hx of Infectious Diseases: None - Past Medical History & Family History Past Medical History?: No - Past Social History Smoking Status: Former Smoker - CARDIAC Hx Congestive Heart Failure: Yes Hx Hypertension: Yes - PULMONARY Hx Chronic Obstructive Pulmonary Disease (COPD): Yes (Emphysema) - NEUROLOGICAL Hx Neurological Disorder: No - HEENT Hx HEENT Problems: No - RENAL Hx Chronic Kidney Disease: No - ENDOCRINE/METABOLIC Hx Endocrine Disorders: No - HEMATOLOGICAL/ONCOLOGICAL Hx Human Immunodeficiency Virus (HIV): No - INTEGUMENTARY Hx Dermatological Problems: No - MUSCULOSKELETAL/RHEUMATOLOGICAL Hx Musculoskeletal Disorders: No Hx Falls: No - GASTROINTESTINAL Hx Gastrointestinal Disorders: No - GENITOURINARY/GYNECOLOGICAL Hx Genitourinary Disorders: No - PSYCHIATRIC Hx Substance Use: No - SURGICAL HISTORY Hx Surgeries: Yes Other/Comment: hernia repair - ANESTHESIA Hx Anesthesia: Yes Hx Anesthesia Reactions: No Meds Allergies/Adverse Reactions: Allergies Allergy/AdvReac Type Severity Reaction Status Date / Time No Known Allergies Allergy Verified 08/11/16 16:31 - Medications Medications: Current Medications Albuterol/Ipratropium (Duoneb 3 Mg/0.5 Mg (3 Ml) Ud) 3 ml INH RQ6 [facility] Last Admin: 08/16/16 19:54 Dose: 3 ml Carvedilol (Coreg) 12.5 mg PO BID [facility] Last Admin: 08/16/16 17:17 Dose: 12.5 mg Digoxin (Lanoxin) 0.125 mg PO DAILY@1800 [facility] Last Admin: 08/16/16 17:17 Dose: 0.125 mg Furosemide (Lasix) 40 mg PO DAILY [facility] Last Admin: 08/16/16 10:05 Dose: 40 mg Guaifenesin (Robitussin) 100 mg PO Q4H PRN PRN Reason: Cough Lisinopril (Zestril) 5 mg PO DAILY [facility] Last Admin: 08/16/16 10:05 Dose: 5 mg Pantoprazole Sodium (Protonix Ec Tab) 40 mg PO DAILY [facility] Last Admin: 08/16/16 10:05 Dose: 40 mg Potassium Chloride (K-Dur 20 Meq Er Tab) 40 meq PO DAILY [facility] Last Admin: 08/16/16 10:06 Dose: 40 meq Rosuvastatin Calcium (Crestor) 5 mg PO HS [facility] Last Admin: 08/15/16 22:07 Dose: 5 mg Spironolactone (Aldactone) 25 mg PO DAILY [facility] Last Admin: 08/16/16 10:05 Dose: 25 mg Tiotropium [place] (Spiriva) 18 mcg INH RQ24 [facility] Last Admin: 08/16/16 07:13 Dose: 18 mcg Physical Exam - Constitutional Appears: No Acute Distress - Head Exam Head Exam: NORMAL INSPECTION - Eye Exam Eye Exam: EOMI, PERRL, Scleral icterus - ENT Exam ENT Exam: Mucous Membranes Dry - Neck Exam Neck exam: Positive for: Normal Inspection. Negative for: Lymphadenopathy - Respiratory Exam Respiratory Exam: Decreased Breath Sounds, Rales (few rhonchi), Rhonchi (.) - Cardiovascular Exam Cardiovascular Exam: REGULAR RHYTHM, +S1, +S2 - GI/Abdominal Exam GI & Abdominal Exam: Normal Bowel Sounds, Soft. absent: Hypoactive Bowel Sounds , Tenderness - Extremities Exam Extremities exam: Positive for: normal capillary refill, pedal edema. Negative for: calf tenderness - Neurological Exam Neurological exam: Alert - Psychiatric Exam Psychiatric exam: Flat Affect - Skin Skin Exam: Normal Color, Pallor Results - Vital Signs Recent Vital Signs: Last Vital Signs Temp 97.4 F L 08/16/16 15:45 Pulse 78 08/16/16 17:48 Resp 18 08/16/16 15:45 BP 107/60 08/16/16 17:17 Pulse Ox 96 08/16/16 17:48 - Labs Result Diagrams: 08/16/16 08:03 08/16/16 08:03 Labs: Laboratory Results - last 24 hr 08/16/16 08/16/16 08:03 08:03 WBC 7.6 RBC 3.90 L Hgb 11.1 L Hct 35.0 MCV 89.7 MCH 28.6 MCHC 31.8 L RDW 14.6 H Plt Count 248 MPV 8.7 Neut % (Auto) 67.8 Lymph % (Auto) 14.5 L [place] % (Auto) 12.0 H Eos % (Auto) 4.5 H Baso % (Auto) 1.2 Neut # 5.1 Lymph # 1.1 [place] # 0.9 H Eos # 0.3 Baso # 0.1 Sodium 138 Potassium 4.7 Chloride 100 Carbon Dioxide 32 H Anion Gap 11 BUN 27 H Creatinine 0.7 L Est GFR ( Amer) > 60 Est GFR (Non-Af Amer) > 60 Random Glucose 89 Calcium 8.2 L Phosphorus 3.5 Magnesium 2.3 Total Bilirubin 0.7 AST 26 ALT 24 Alkaline Phosphatase 57 Total Protein 6.2 L Albumin 3.1 L Globulin 3.1 Albumin/Globulin Ratio 1.0 - Imaging and Cardiology CT scan - pelvis Status: Report reviewed by me (CT abdomen and pelvis; showed no nephrolithiasis or obstructive uropathy. Left inguinal hernia. Enlarged prostate, and bony findings of ankylosing spondylitis.) Assessment & Plan (1) Pleural effusion Assessment and Plan: Check QuantiFERON Gold TB test r/o TUBERCULOUS PLEURAL EFFUSION ( UPPER LOBE LOCULATED EFFUSION ) TSH, CRP PROCALCITONIN LEVELS ERIC HIV 1 AND 2 ANTIBODY. HEP C ANTIBODY. ANGIOTENSIN-CONVERTING ENZYME. HLA-B27 R/O ANKYLOSING SPONDYLITIS PATIENT WENT TO IR BUT UNSUCCESSFUL.. PATIENT WILL NEED PLEURAL FLUID ANALYSIS TO RULE OUT EXUDATE FROM TRANSUDATE. AND SEND FLUID FOR CELL COUNT AND DIFFERENTIAL, PROTEINS, GLUCOSE, LDH. ADENOSINE DEAMINASE PLEURAL FLUID. TUMOR MARKERS. gRAM STAIN AND CULTURE afb SMEAR AND CULTURE fUNGAL SMEAR AND CULTURE PCR -TB PATIENT MAY NEED PLEURAL BIOPSY R/O CASEATING GRANULOMAS VIA VATS. wILL DISCUSS WITH PULMONARY AND dR. Holguin. Status: Acute (2) Chronic systolic dysfunction of left ventricle Status: Acute (3) CHF exacerbation Status: Acute Priority: High (4) Supratherapeutic INR Status: Acute (5) CAD (coronary artery disease) Status: Acute (6) HTN (hypertension) Status: Acute
[2016-08-17] MEDS: Albuterol-Ipratrop 3 mg / 0.5 (3 ml) UD INH SCH ×4 (01:20→19:40)
[2016-08-17 06:47] LABS: CHLORIDE 97 mmol/L (98-107)
[2016-08-17 06:48] LABS: POTASSIUM 5.1 mmol/L (3.6-5.2); SODIUM 135 mmol/L (132-148)
[2016-08-17 06:50] LABS: ALKALINE PHOSPHATASE 60 U/L (38-126); ALT/SGPT 23 U/L (21-72); AST/SGOT 31 U/L (17-59); BILIRUBIN,TOTAL 0.8 mg/dL (0.2-1.3); BLOOD UREA NITROGEN 28 mg/dL (9-20); CARBON DIOXIDE 35 mmol/L (22-30); GFR AFRICAN-AMERICAN > 60; GLUCOSE,RANDOM 84 mg/dL (75-110); TOTAL PROTEIN 6.4 g/dL (6.3-8.3)
[2016-08-17 06:51] LABS: CALCIUM 8.6 mg/dl (8.6-10.4); MAGNESIUM 2.1 mg/dL (1.6-2.3); PHOSPHOROUS 3.6 mg/dL (2.5-4.5)
[2016-08-17 07:54] LABS: BASO # 0.1 K/uL (0.0-0.2); EOS # 0.3 K/uL (0.0-0.7); EOS % 4.2 % (0.0-4.0); HEMATOCRIT 33.4 % (35.0-51.0); LYMPH # 1.3 K/uL (1.0-4.3); LYMPH % 16.5 % (20.0-40.0); MEAN CELL VOLUME 90.2 fL (80.0-94.0); MEAN CORPUSCULAR HEMOGLOBIN 29.4 pg (27.0-31.0); MEAN CORPUSCULAR HGB CONC 32.6 g/dL (33.0-37.0); MONO % 12.9 % (0.0-10.0); RED CELL DISTRIBUTION WIDTH 14.5 % (11.5-14.5); WHITE BLOOD COUNT 7.7 K/uL (4.8-10.8)
[2016-08-17] MEDS: Tiotropium 18 mcg Cap For Inhalation INH SCH (08:00)
--- NOTE | 2016-08-17 15:06 | CARD ---
APPROVED REPORT EKG Measurement Heart [id number] <Conclusion> Ventricular-paced rhythm Abnormal ECG
[2016-08-17] MEDS: Digoxin 125 mcg (0.125 mg) Tab PO SCH (18:00)
[2016-08-18 00:14] LABS: BASO # 0.1 K/uL (0.0-0.2); BASO % 0.7 % (0.0-2.0); EOS # 0.3 K/uL (0.0-0.7); EOS % 3.7 % (0.0-4.0); HEMATOCRIT 35.3 % (35.0-51.0); LYMPH # 1.1 K/uL (1.0-4.3); LYMPH % 13.9 % (20.0-40.0); MEAN CELL VOLUME 89.9 fL (80.0-94.0); MEAN CORPUSCULAR HEMOGLOBIN 29.2 pg (27.0-31.0); MEAN CORPUSCULAR HGB CONC 32.5 g/dL (33.0-37.0); MONO % 12.3 % (0.0-10.0); RED CELL DISTRIBUTION WIDTH 14.2 % (11.5-14.5); WHITE BLOOD COUNT 7.8 K/uL (4.8-10.8)
[2016-08-18] MEDS: Tiotropium 18 mcg Cap For Inhalation INH SCH (07:27)
--- NOTE | 2016-08-18 07:31 | CP.PCM.PN ---
Objective - Vital Signs/Intake and Output Vital Signs (last 24 hours): Temp Pulse Resp BP Pulse Ox 97.7 F 102 H 18 102/65 96 08/17/16 23:53 08/18/16 01:25 08/17/16 23:53 08/17/16 23:53 08/17/16 23:53 - Medications Medications: Current Medications Carvedilol (Coreg) 12.5 mg PO BID [facility] Last Admin: 08/17/16 18:00 Dose: Not Given Digoxin (Lanoxin) 0.125 mg PO DAILY@1800 [facility] Last Admin: 08/17/16 18:00 Dose: Not Given Furosemide (Lasix) 40 mg PO DAILY [facility] Last Admin: 08/16/16 10:05 Dose: 40 mg Guaifenesin (Robitussin) 100 mg PO Q4H PRN PRN Reason: Cough Lisinopril (Zestril) 5 mg PO DAILY [facility] Last Admin: 08/16/16 10:05 Dose: 5 mg Pantoprazole Sodium (Protonix Ec Tab) 40 mg PO DAILY [facility] Last Admin: 08/16/16 10:05 Dose: 40 mg Potassium Chloride (K-Dur 20 Meq Er Tab) 40 meq PO DAILY [facility] Last Admin: 08/16/16 10:06 Dose: 40 meq Rosuvastatin Calcium (Crestor) 5 mg PO HS [facility] Last Admin: 08/17/16 21:16 Dose: 5 mg Spironolactone (Aldactone) 25 mg PO DAILY [facility] Last Admin: 08/16/16 10:05 Dose: 25 mg Tiotropium [place] (Spiriva) 18 mcg INH RQ24 [facility] Last Admin: 08/18/16 07:27 Dose: 18 mcg - Labs Labs: 08/17/16 16:30 08/17/16 04:00 PT 13.3 SECONDS (9.7-12.2) H D 08/13/16 07:38 INR 1.2 D 08/13/16 07:38 APTT 108 SECONDS (21-34) H* 08/11/16 18:47
--- NOTE | 2016-08-18 07:48 | CP.PCM.PN ---
Subjective - Date & Time of Evaluation Date of Evaluation: 08/18/16 Time of Evaluation: 07:40 - Subjective Subjective: patient has no current cough. Objective - Vital Signs/Intake and Output Vital Signs (last 24 hours): Temp Pulse Resp BP Pulse Ox 97.7 F 102 H 18 102/65 96 08/17/16 23:53 08/18/16 01:25 08/17/16 23:53 08/17/16 23:53 08/17/16 23:53 - Medications Medications: Current Medications Carvedilol (Coreg) 12.5 mg PO BID [facility] Last Admin: 08/17/16 18:00 Dose: Not Given Digoxin (Lanoxin) 0.125 mg PO DAILY@1800 [facility] Last Admin: 08/17/16 18:00 Dose: Not Given Furosemide (Lasix) 40 mg PO DAILY [facility] Last Admin: 08/16/16 10:05 Dose: 40 mg Guaifenesin (Robitussin) 100 mg PO Q4H PRN PRN Reason: Cough Lisinopril (Zestril) 5 mg PO DAILY [facility] Last Admin: 08/16/16 10:05 Dose: 5 mg Pantoprazole Sodium (Protonix Ec Tab) 40 mg PO DAILY [facility] Last Admin: 08/16/16 10:05 Dose: 40 mg Potassium Chloride (K-Dur 20 Meq Er Tab) 40 meq PO DAILY [facility] Last Admin: 08/16/16 10:06 Dose: 40 meq Rosuvastatin Calcium (Crestor) 5 mg PO HS [facility] Last Admin: 08/17/16 21:16 Dose: 5 mg Spironolactone (Aldactone) 25 mg PO DAILY [facility] Last Admin: 08/16/16 10:05 Dose: 25 mg Tiotropium [place] (Spiriva) 18 mcg INH RQ24 [facility] Last Admin: 08/18/16 07:27 Dose: 18 mcg - Labs Labs: 08/17/16 16:30 08/17/16 04:00 PT 13.3 SECONDS (9.7-12.2) H D 08/13/16 07:38 INR 1.2 D 08/13/16 07:38 APTT 108 SECONDS (21-34) H* 08/11/16 18:47 - Constitutional Appears: Non-toxic - Head Exam Head Exam: NORMAL INSPECTION - Eye Exam Eye Exam: Normal appearance - ENT Exam ENT Exam: Mucous Membranes Moist - Neck Exam Neck Exam: Full ROM - Respiratory Exam Respiratory Exam: Decreased Breath Sounds - Cardiovascular Exam Cardiovascular Exam: Irregular Rhythm - GI/Abdominal Exam GI & Abdominal Exam: Normal Bowel Sounds - Rectal Exam Rectal Exam: Deferred - Extremities Exam Extremities Exam: absent: Pedal Edema - Back Exam Back Exam: NORMAL INSPECTION - Neurological Exam Neurological Exam: Alert - Psychiatric Exam Psychiatric exam: Normal Affect - Skin Skin Exam: Normal Color Assessment and Plan (1) Chronic systolic dysfunction of left ventricle Assessment & Plan: stable volume status Status: Acute (2) CAD (coronary artery disease) Assessment & Plan: no current angina Status: Acute (3) Chronic atrial fibrillation Assessment & Plan: rate controlled. Status: Acute (4) Supratherapeutic INR Assessment & Plan: improved Status: Acute
[2016-08-18 09:06] LABS: CHLORIDE 95 mmol/L (98-107)
[2016-08-18 09:07] LABS: POTASSIUM 4.8 mmol/L (3.6-5.2); SODIUM 137 mmol/L (132-148)
[2016-08-18 09:09] LABS: ALKALINE PHOSPHATASE 67 U/L (38-126); ALT/SGPT 30 U/L (21-72); AST/SGOT 32 U/L (17-59); BILIRUBIN,TOTAL 0.8 mg/dL (0.2-1.3); BLOOD UREA NITROGEN 33 mg/dL (9-20); CARBON DIOXIDE 36 mmol/L (22-30); GFR AFRICAN-AMERICAN > 60; GLUCOSE,RANDOM 89 mg/dL (75-110); TOTAL PROTEIN 6.9 g/dL (6.3-8.3)
[2016-08-18 09:10] LABS: CALCIUM 8.9 mg/dl (8.6-10.4); MAGNESIUM 2.2 mg/dL (1.6-2.3)
[2016-08-18 09:12] LABS: IMMUNOGLOBULIN A 272.9 mg/dL (70.0-400.0)
[2016-08-18 09:35] LABS: THYROID STIMULATING HORMONE 0.83 mIU/L (0.46-4.68)
--- NOTE | 2016-08-18 10:06 | CP.PCM.PN ---
Subjective - Date & Time of Evaluation Date of Evaluation: 08/18/16 Time of Evaluation: 10:02 - Subjective Subjective: PGY1 Progress note for Dr. Hyatt: Patient seen and examined. Patient denies cough and states he feels okay. Patient agitated regarding room change and isolation status. Objective - Vital Signs/Intake and Output Vital Signs (last 24 hours): Temp Pulse Resp BP Pulse Ox 97.7 F 102 H 18 102/65 96 08/17/16 23:53 08/18/16 01:25 08/17/16 23:53 08/17/16 23:53 08/17/16 23:53 - Medications Medications: Current Medications Carvedilol (Coreg) 12.5 mg PO BID [facility] Last Admin: 08/17/16 18:00 Dose: Not Given Digoxin (Lanoxin) 0.125 mg PO DAILY@1800 [facility] Last Admin: 08/17/16 18:00 Dose: Not Given Furosemide (Lasix) 40 mg PO DAILY [facility] Last Admin: 08/16/16 10:05 Dose: 40 mg Guaifenesin (Robitussin) 100 mg PO Q4H PRN PRN Reason: Cough Lisinopril (Zestril) 5 mg PO DAILY [facility] Last Admin: 08/16/16 10:05 Dose: 5 mg Pantoprazole Sodium (Protonix Ec Tab) 40 mg PO DAILY [facility] Last Admin: 08/16/16 10:05 Dose: 40 mg Potassium Chloride (K-Dur 20 Meq Er Tab) 40 meq PO DAILY [facility] Last Admin: 08/16/16 10:06 Dose: 40 meq Rosuvastatin Calcium (Crestor) 5 mg PO HS [facility] Last Admin: 08/17/16 21:16 Dose: 5 mg Spironolactone (Aldactone) 25 mg PO DAILY [facility] Last Admin: 08/16/16 10:05 Dose: 25 mg Tiotropium [place] (Spiriva) 18 mcg INH RQ24 [facility] Last Admin: 08/18/16 07:27 Dose: 18 mcg - Labs Labs: 08/17/16 16:30 08/18/16 08:09 PT 13.3 SECONDS (9.7-12.2) H D 08/13/16 07:38 INR 1.2 D 08/13/16 07:38 APTT 108 SECONDS (21-34) H* 08/11/16 18:47 - Constitutional Appears: No Acute Distress - Head Exam Head Exam: NORMAL INSPECTION - Eye Exam Eye Exam: EOMI - Respiratory Exam Respiratory Exam: NORMAL BREATHING PATTERN. absent: Rhonchi, Wheezes Additional comments: ICD battery palpable in left chest - Extremities Exam Extremities Exam: absent: Pedal Edema - Neurological Exam Neurological Exam: Alert, Awake - Psychiatric Exam Psychiatric exam: Agitated - Skin Skin Exam: Dry, Warm Assessment and Plan - Assessment and Plan (Free Text) Assessment: 71M with PMH CHF and a.fib with left upper lobe loculated effusion - CT with 6.3 x 5.5cm left lung apex loculated effusion, probable loculated effusions bilaterally. mild right basilar compressive consolidation. - IR attempted thoracentesis on 08/16/16 but there was not a large enough collection to drain - reviewed imaging with Dr. Hyatt, no plan for immediate surgical intervention, recommend repeating CT scan in 3 months to re-evaluate the effusions - D/W Dr. Hyatt
[2016-08-18 10:17] LABS: BLOOD UREA NITROGEN 28 mg/dL (9-20); CHLORIDE 97 mmol/L (98-107); GFR AFRICAN-AMERICAN > 60; GLUCOSE,RANDOM 84 mg/dL (75-110); POTASSIUM 5.1 mmol/L (3.6-5.2); SODIUM 135 mmol/L (132-148)
[2016-08-18 10:18] LABS: AST/SGOT 31 U/L (17-59); BILIRUBIN,TOTAL 0.8 mg/dL (0.2-1.3); CALCIUM 8.6 mg/dl (8.6-10.4); CARBON DIOXIDE 35 mmol/L (22-30); MAGNESIUM 2.1 mg/dL (1.6-2.3); PHOSPHOROUS 3.6 mg/dL (2.5-4.5); TOTAL PROTEIN 6.4 g/dL (6.3-8.3)
[2016-08-18 10:19] LABS: ALKALINE PHOSPHATASE 60 U/L (38-126); ALT/SGPT 23 U/L (21-72)
[2016-08-18] MEDS: Pantoprazole 40 mg EC Tab PO SCH (10:35)
[2016-08-18] MEDS: Potassium Chloride 20 mEq ER Tab PO SCH ×2 (10:35→10:43)
--- NOTE | 2016-08-18 13:56 | CP.PCM.CON ---
History of Present Illness - History of Present Illness History of Present Illness: Reason for consultation: left apical pleural effusion. Requested by Dr. Casiano Pt s/e on rounds Progress notes and imaging studies reviewed. CT-6cm loculated effusion left apex, and smaller loculated effusions r and left fissures. I appears the process is chronic, and I am incline to recommend repeat ct in 3mo , and then decide on a further rx plan at that time. d/w residents on rounds. Past Patient History - Infectious Disease Hx of Infectious Diseases: None - Past Medical History & Family History Past Medical History?: No - Past Social History Smoking Status: Former Smoker - CARDIAC Hx Congestive Heart Failure: Yes Hx Hypertension: Yes - PULMONARY Hx Chronic Obstructive Pulmonary Disease (COPD): Yes (Emphysema) - NEUROLOGICAL Hx Neurological Disorder: No - HEENT Hx HEENT Problems: No - RENAL Hx Chronic Kidney Disease: No - ENDOCRINE/METABOLIC Hx Endocrine Disorders: No - HEMATOLOGICAL/ONCOLOGICAL Hx Human Immunodeficiency Virus (HIV): No - INTEGUMENTARY Hx Dermatological Problems: No - MUSCULOSKELETAL/RHEUMATOLOGICAL Hx Musculoskeletal Disorders: No Hx Falls: No - GASTROINTESTINAL Hx Gastrointestinal Disorders: No - GENITOURINARY/GYNECOLOGICAL Hx Genitourinary Disorders: No - PSYCHIATRIC Hx Substance Use: No - SURGICAL HISTORY Hx Surgeries: Yes Other/Comment: hernia repair - ANESTHESIA Hx Anesthesia: Yes Hx Anesthesia Reactions: No Meds Allergies/Adverse Reactions: Allergies Allergy/AdvReac Type Severity Reaction Status Date / Time No Known Allergies Allergy Verified 08/11/16 16:31 - Medications Medications: Current Medications Carvedilol (Coreg) 12.5 mg PO BID [facility] Last Admin: 08/18/16 10:42 Dose: 12.5 mg Digoxin (Lanoxin) 0.125 mg PO DAILY@1800 [facility] Last Admin: 08/17/16 18:00 Dose: Not Given Furosemide (Lasix) 40 mg PO DAILY [facility] Last Admin: 08/18/16 10:41 Dose: 40 mg Guaifenesin (Robitussin) 100 mg PO Q4H PRN PRN Reason: Cough Lisinopril (Zestril) 5 mg PO DAILY [facility] Last Admin: 08/18/16 10:42 Dose: Not Given Pantoprazole Sodium (Protonix Ec Tab) 40 mg PO DAILY [facility] Last Admin: 08/18/16 10:35 Dose: 40 mg Rosuvastatin Calcium (Crestor) 5 mg PO HS [facility] Last Admin: 08/17/16 21:16 Dose: 5 mg Spironolactone (Aldactone) 25 mg PO DAILY [facility] Last Admin: 08/18/16 10:35 Dose: 25 mg Tiotropium [place] (Spiriva) 18 mcg INH RQ24 [facility] Last Admin: 08/18/16 07:27 Dose: 18 mcg Results - Vital Signs Recent Vital Signs: Last Vital Signs Temp 97.7 F 08/17/16 23:53 Pulse 102 H 08/18/16 01:25 Resp 18 08/17/16 23:53 BP 109/74 08/18/16 10:42 Pulse Ox 96 08/17/16 23:53 - Labs Result Diagrams: 08/17/16 16:30 08/18/16 08:09 Labs: Laboratory Results - last 24 hr 08/17/16 08/17/16 08/17/16 04:00 04:00 16:30 WBC 7.7 7.8 RBC 3.70 L 3.93 L Hgb 10.9 L 11.5 L Hct 33.4 L 35.3 MCV 90.2 89.9 MCH 29.4 29.2 MCHC 32.6 L 32.5 L RDW 14.5 14.2 Plt Count 251 291 MPV 9.0 9.0 Neut % (Auto) 65.4 69.4 Lymph % (Auto) 16.5 L 13.9 L [place] % (Auto) 12.9 H 12.3 H Eos % (Auto) 4.2 H 3.7 Baso % (Auto) 1.0 0.7 Neut # 5.0 5.4 Lymph # 1.3 1.1 Harvey # 1.0 H 1.0 H Eos # 0.3 0.3 Baso # 0.1 0.1 Sodium 135 Potassium 5.1 Chloride 97 L Carbon Dioxide 35 H Anion Gap 8 L BUN 28 H Creatinine 0.7 L Est GFR ( Amer) > 60 Est GFR (Non-Af Amer) > 60 Random Glucose 84 Calcium 8.6 Phosphorus 3.6 Magnesium 2.1 Total Bilirubin 0.8 AST 31 ALT 23 Alkaline Phosphatase 60 C-React Prot High Sens NT-Pro-B Natriuret Pep Total Protein 6.4 Albumin 3.2 L Globulin 3.2 Albumin/Globulin Ratio 1.0 Procalcitonin TSH 3rd Generation IgA Rheum Arthritis Panel ERIC 6 Profile Hepatitis A IgM Ab Hep Bs Antigen Hep B Core IgM Ab Hepatitis C Antibody HIV 1&2 Antibody Screen 08/17/16 08/18/16 08/18/16 16:30 08:09 08:09 WBC RBC Hgb Hct MCV MCH MCHC RDW Plt Count MPV Neut % (Auto) Lymph % (Auto) [place] % (Auto) Eos % (Auto) Baso % (Auto) Neut # Lymph # Harvey # Eos # Baso # Sodium 135 137 Potassium 5.1 4.8 Chloride 97 L 95 L Carbon Dioxide 35 H 36 H Anion Gap 8 L 11 BUN 28 H 33 H Creatinine 0.7 L 1.0 Est GFR ( Amer) > 60 > 60 Est GFR (Non-Af Amer) > 60 > 60 Random Glucose 84 89 Calcium 8.6 8.9 Phosphorus 3.6 4.0 Magnesium 2.1 2.2 Total Bilirubin 0.8 0.8 AST 31 32 ALT 23 30 Alkaline Phosphatase 60 67 C-React Prot High Sens NT-Pro-B Natriuret Pep 2520 H Total Protein 6.4 6.9 Albumin 3.2 L 3.4 L Globulin 3.2 3.5 Albumin/Globulin Ratio 1.0 1.0 Procalcitonin TSH 3rd Generation 0.83 IgA Rheum Arthritis Panel ERIC 6 Profile Hepatitis A IgM Ab Negative Hep Bs Antigen Negative Hep B Core IgM Ab Negative Hepatitis C Antibody Negative HIV 1&2 Antibody Screen 08/18/16 08/18/16 08/18/16 08:09 08:09 08:09 WBC RBC Hgb Hct MCV MCH MCHC RDW Plt Count MPV Neut % (Auto) Lymph % (Auto) [place] % (Auto) Eos % (Auto) Baso % (Auto) Neut # Lymph # Harvey # Eos # Baso # Sodium Potassium Chloride Carbon Dioxide Anion Gap BUN Creatinine Est GFR ( Amer) Est GFR (Non-Af Amer) Random Glucose Calcium Phosphorus Magnesium Total Bilirubin AST ALT Alkaline Phosphatase C-React Prot High Sens 6.06 H NT-Pro-B Natriuret Pep Total Protein Albumin Globulin Albumin/Globulin Ratio Procalcitonin TSH 3rd Generation IgA 272.9 Rheum Arthritis Panel ERIC 6 Profile Hepatitis A IgM Ab Hep Bs Antigen Hep B Core IgM Ab Hepatitis C Antibody Negative HIV 1&2 Antibody Screen Negative 08/18/16 08/18/16 08:09 08:23 WBC RBC Hgb Hct MCV MCH MCHC RDW Plt Count MPV Neut % (Auto) Lymph % (Auto) [place] % (Auto) Eos % (Auto) Baso % (Auto) Neut # Lymph # Harvey # Eos # Baso # Sodium Potassium Chloride Carbon Dioxide Anion Gap BUN Creatinine Est GFR ( Amer) Est GFR (Non-Af Amer) Random Glucose Calcium Phosphorus Magnesium Total Bilirubin AST ALT Alkaline Phosphatase C-React Prot High Sens NT-Pro-B Natriuret Pep Total Protein Albumin Globulin Albumin/Globulin Ratio Procalcitonin 0.05 L TSH 3rd Generation IgA Rheum Arthritis Panel Negative ERIC 6 Profile Negative Hepatitis A IgM Ab Hep Bs Antigen Hep B Core IgM Ab Hepatitis C Antibody HIV 1&2 Antibody Screen
--- NOTE | 2016-08-18 16:04 | CP.PCM.DIS ---
Provider - Provider Date of Admission: 08/11/16 19:27 Attending physician: Warren Gonzalez Jr, MD Primary care physician: Dr Gonzalez Consults: Dr Cruz cardiology Dr Alvarez urology Dr Casiano pulmonology Dr Hyatt surgery Dr Olson ID Dr Long IR Time Spent in preparation of Discharge (in minutes): 45 Hospital Course - Lab Results Lab Results: Micro Results 08/11/16 20:00 Urine Urine Culture - Final No Growth (<1,000 CFU/ML) Most Recent Lab Values WBC 7.8 K/uL (4.8-10.8) 08/17/16 16:30 RBC 3.93 Mil/uL (4.40-5.90) L 08/17/16 16:30 Hgb 11.5 g/dL (12.0-18.0) L 08/17/16 16:30 Hct 35.3 % (35.0-51.0) 08/17/16 16:30 MCV 89.9 fL (80.0-94.0) 08/17/16 16:30 MCH 29.2 pg (27.0-31.0) 08/17/16 16:30 MCHC 32.5 g/dL (33.0-37.0) L 08/17/16 16:30 RDW 14.2 % (11.5-14.5) 08/17/16 16:30 Plt Count 291 K/uL (130-400) 08/17/16 16:30 MPV 9.0 fL (7.2-11.7) 08/17/16 16:30 Neut % (Auto) 69.4 % (50.0-75.0) 08/17/16 16:30 Lymph % (Auto) 13.9 % (20.0-40.0) L 08/17/16 16:30 [place] % (Auto) 12.3 % (0.0-10.0) H 08/17/16 16:30 Eos % (Auto) 3.7 % (0.0-4.0) 08/17/16 16:30 Baso % (Auto) 0.7 % (0.0-2.0) 08/17/16 16:30 Neut # 5.4 K/uL (1.8-7.0) 08/17/16 16:30 Lymph # 1.1 K/uL (1.0-4.3) 08/17/16 16:30 [place] # 1.0 K/uL (0.0-0.8) H 08/17/16 16:30 Eos # 0.3 K/uL (0.0-0.7) 08/17/16 16:30 Baso # 0.1 K/uL (0.0-0.2) 08/17/16 16:30 PT 13.3 SECONDS (9.7-12.2) H D 08/13/16 07:38 INR 1.2 D 08/13/16 07:38 APTT 108 SECONDS (21-34) H* 08/11/16 18:47 Sodium 137 mmol/L (132-148) 08/18/16 08:09 Potassium 4.8 mmol/L (3.6-5.2) 08/18/16 08:09 Chloride 95 mmol/L (98-107) L 08/18/16 08:09 Carbon Dioxide 36 mmol/L (22-30) H 08/18/16 08:09 Anion Gap 11 (10-20) 08/18/16 08:09 BUN 33 mg/dL (9-20) H 08/18/16 08:09 Creatinine 1.0 MG/DL (0.8-1.5) 08/18/16 08:09 Est GFR ( Amer) > 60 08/18/16 08:09 Est GFR (Non-Af Amer) > 60 08/18/16 08:09 POC Glucose (mg/dL) 169 mg/dL (65-110) H 08/12/16 21:21 Random Glucose 89 mg/dL (75-110) 08/18/16 08:09 Calcium 8.9 mg/dl (8.6-10.4) 08/18/16 08:09 Phosphorus 4.0 mg/dL (2.5-4.5) 08/18/16 08:09 Magnesium 2.2 mg/dL (1.6-2.3) 08/18/16 08:09 Total Bilirubin 0.8 mg/dL (0.2-1.3) 08/18/16 08:09 AST 32 U/L (17-59) 08/18/16 08:09 ALT 30 U/L (21-72) 08/18/16 08:09 Alkaline Phosphatase 67 U/L (38-126) 08/18/16 08:09 Total Creatine Kinase 138 U/L (55-170) 08/12/16 16:56 CK-MB (Mass) 2.02 ng/mL (0.0-3.38) 08/12/16 16:56 Troponin I 0.1320 ng/mL (0.00-0.120) H* 08/11/16 18:06 Troponin I, Quant 0.1130 ng/mL (0.00-0.120) 08/12/16 16:56 C-React Prot High Sens 6.06 mg/L (1.00-3.00) H 08/18/16 08:09 NT-Pro-B Natriuret Pep 2520 pg/mL (0-900) H 08/18/16 08:09 Total Protein 6.9 g/dL (6.3-8.3) 08/18/16 08:09 Albumin 3.4 g/dL (3.5-5.0) L 08/18/16 08:09 Globulin 3.5 gm/dL (2.2-3.9) 08/18/16 08:09 Albumin/Globulin Ratio 1.0 (1.0-2.1) 08/18/16 08:09 Procalcitonin 0.05 NG/ML (0.19-0.49) L 08/18/16 08:23 TSH 3rd Generation 0.83 mIU/L (0.46-4.68) 08/18/16 08:09 Urine Color Red (YELLOW) 08/11/16 20:02 Urine Clarity Slight-cloudy (Clear) 08/11/16 20:02 Urine pH 6.0 (5.0-8.0) 08/11/16 20:02 Ur Specific [place] 1.011 (1.003-1.030) 08/11/16 20:02 Urine Protein 2+ mg/dL (NEGATIVE) H 08/11/16 20:02 Urine Glucose (UA) 1+ mg/dL (Normal) H 08/11/16 20:02 Urine Ketones Negative mg/dL (NEGATIVE) 08/11/16 20:02 Urine Blood 3+ (NEGATIVE) H 08/11/16 20:02 Urine Nitrate Negative (NEGATIVE) 08/11/16 20:02 Urine Bilirubin Negative (NEGATIVE) 08/11/16 20:02 Urine Urobilinogen Normal mg/dL (0.2-1.0) 08/11/16 20:02 Ur Leukocyte Esterase Neg Ana/uL (Negative) 08/11/16 20:02 Urine WBC (Auto) 10 /hpf (0-5) H 08/11/16 20:02 Urine RBC (Auto) 10325 /hpf (0-3) H 08/11/16 20:02 Urine Bacteria Occ (<OCC) H 08/11/16 20:02 IgA 272.9 mg/dL (70.0-400.0) 08/18/16 08:09 Rheum Arthritis Panel Negative (NEGATIVE) 08/18/16 08:09 ERIC 6 Profile Negative (NEGATIVE) 08/18/16 08:09 Hepatitis A IgM Ab Negative (NEGATIVE) 08/18/16 08:09 Hep Bs Antigen Negative (NEGATIVE) 08/18/16 08:09 Hep B Core IgM Ab Negative (NEGATIVE) 08/18/16 08:09 Hepatitis C Antibody Negative (NEGATIVE) 08/18/16 08:09 HIV 1&2 Antibody Screen Negative (NEGATIVE) 08/18/16 08:09 Blood Type A POSITIVE 08/11/16 19:57 Blood Type Confirm A POSITIVE 08/11/16 19:57 Antibody Screen Negative 08/11/16 19:57 - Hospital Course Hospital Course: Upon Admission 71 M PMHx of [place] x 3, a.fib on coumadin, PVD, CHF, CAD complaining of gross hematuria over 3 days and worsening shortness of breath and bilateral LE edema. Patient denies any trauma or dysuria. Patient reports that he is unable to walk 1 block without having to stop twice to catch his breath and that he uses 2 pillows to sleep. He also complained of some chest pain with the shortness of breath. Patient denies headaches, fevers, chills, dizziness, palpitations, nausea, vomiting, diaphoresis. Patient was last seen in July 2016 for similar complaints of chest pain and dyspnea but hematuria is new. Patient admitted to TELE. Patient's gross hematuria was likely secondary to coumadin toxicity and supratherapeutic INR of 17 so coumadin was held and patient was given 1 stat dose of vitamin K and transfused 1U FFP in the ER and was placed on phytonadione 10mg IV daily which was stopped on 08/13. CT abdomen/ pelvis showed small to mod b/l pleural effusions; No evidence of nephrolithasis or obstructive uropathy; L inguinal hernia containing part of sigmoid colon and small amount of fluid; bony findings suspicious for ankylosing spondylitis; enlarged prostate gland and patient's urine cultures were negative. Urology Dr. Alvarez was consulted. Patient also had chest pain and troponins where 0.132--> 0.151 and EKG showed ventricular paced rhythm with some PVCs and no acute changes. Patient had a stress test on a recent admission that showerd areas of infarct and Dr Cruz was consulted and recommended continuing management with no intervention. Patient had an elevated BNP of 7840 and Echo on july 17 showed EF 40-45%; hypokinesis in apical inferior wall; LV systolic function is mildly to moderately impaired; mitral regurgitation is trace; mild pulmonary HTN. Patient was on appropriate medications. Patient's dyspnea on exertion was deemed likely due to a CT chest findings of L sided AICD. Cardiomegaly. Coronary artery calcifications. Fluid noted within anterior pericardium. Prominent but sub cm prevascular mediastinal lymph nodes. 6.3 x 5.5cm L lung apex hypdensity measuring approx 10HU compatible with loculated effusion. Additional regions of probable loculated effusions bilaterally. Small layering pleural effusion. Mild R basilar compressive consolidation. IR was consulted but was unable to do a thoracentesis as there was not enough fluid and Dr. Casiano pulmonology and Dr Wesley LEVY were also consulted. Patient's procalcitonin was WNL. Thoracic surgery was consulted that wanted to repeat CT chest in 3 months. Patient was deemed medically stable for discharge. 1) Dyspnea on exertion: resolved- f/u outpatient in 3 months 2) Gross hematuria: resolved 3) Supratherapeutic INR: resolved 4) Chest pain r/o ACS: resolved 5) HTN: continue current management and f/u outpatient 6) CHF: continue current management and f/u outpatient 7) Afib: continue current management and f/u outpatient 8) CAD: continue current management and f/u outpatient Upon Discharge Patient stable for discharge home as per hospitalist Dr. Gonzalez Patient to take medications as prescribed. Patient to NOT take ASA 81mg po daily and Warfarin 5mg po daily. Patient to follow up in [address] Gonzalez Patient to also follow up in [address] Kye Alvarez regarding cystoscopy. If symptoms persist or worsen patient to visit ER immediately. Instructions discussed in detail with patient who understands and agrees. Please note this is a discharge summary. For full hospital course please refer to medical records. Discharge Exam - Head Exam Head Exam: NORMAL INSPECTION - Eye Exam Eye Exam: EOMI, Normal appearance, PERRL. absent: Conjunctival injection, Scleral icterus Pupil Exam: NORMAL ACCOMODATION - ENT Exam ENT Exam: Mucous Membranes Moist - Neck Exam Neck exam: Full Rom, Normal Inspection - Respiratory Exam Respiratory Exam: Clear to PA & Lateral, NORMAL BREATHING PATTERN. absent: Accessory Muscle Use, Rales, Rhonchi, Wheezes, Respiratory Distress - Cardiovascular Exam Cardiovascular Exam: Irregular Rhythm, +S1, +S2 - GI/Abdominal Exam GI & Abdominal Exam: Normal Bowel Sounds, Soft. absent: Firm, Guarding, Tenderness - Extremities Exam Extremities exam: normal capillary refill, normal inspection, pedal pulses present - Back Exam Back exam: NORMAL INSPECTION. absent: CVA tenderness (L), CVA tenderness (R) - Neurological Exam Neurological exam: Alert, Oriented x3 - Psychiatric Exam Psychiatric exam: Normal Affect, Normal Mood - Skin Skin Exam: Dry, Intact, Normal Color, Warm Discharge Plan - Discharge Medications Prescriptions: guaiFENesin [Robitussin] 100 mg PO Q4H PRN #1 PRN Reason: Cough - Follow Up Plan Condition: STABLE Disposition: HOME/ ROUTINE Instructions: Heart Failure (DC), Heart Failure (GEN), Pacemaker (DC), Pacemaker (GEN), Pulmonary Edema (DC), Pulmonary Edema (GEN), COPD (Chronic Obstructive Pulmonary Disease) (DC), Pleural Effusion (DC), Ascites (DC), Ascites (GEN) Additional Instructions: Patient stable for discharge home as per hospitalist Dr. Gonzalez Patient to take medications as prescribed. Patient to NOT take ASA 81mg po daily and Warfarin 5mg po daily. Patient to follow up in [address] Gonzalez Patient to also follow up in [address] Kye Alvarez regarding cystoscopy. If symptoms persist or worsen patient to visit ER immediately. Instructions discussed in detail with patient who understands and agrees.
--- NOTE | 2016-08-18 16:53 | CP.PCM.PN ---
Subjective - Date & Time of Evaluation Date of Evaluation: 08/18/16 Time of Evaluation: 15:00 - Subjective Subjective: Patient seen and examined. Sitting comfortably in no acute distress Denies cough, denies fevers chills, denies chest pain Seen by thoracic surgery and the plan is to repeat CAT scan Pro-calcitonin level normal Objective - Vital Signs/Intake and Output Vital Signs (last 24 hours): Temp Pulse Resp BP Pulse Ox 97.7 F 102 H 18 109/74 96 08/17/16 23:53 08/18/16 01:25 08/17/16 23:53 08/18/16 10:42 08/17/16 23:53 - Medications Medications: Current Medications Carvedilol (Coreg) 12.5 mg PO BID [facility] Last Admin: 08/18/16 10:42 Dose: 12.5 mg Digoxin (Lanoxin) 0.125 mg PO DAILY@1800 [facility] Last Admin: 08/17/16 18:00 Dose: Not Given Furosemide (Lasix) 40 mg PO DAILY [facility] Last Admin: 08/18/16 10:41 Dose: 40 mg Guaifenesin (Robitussin) 100 mg PO Q4H PRN PRN Reason: Cough Lisinopril (Zestril) 5 mg PO DAILY [facility] Last Admin: 08/18/16 10:42 Dose: Not Given Pantoprazole Sodium (Protonix Ec Tab) 40 mg PO DAILY [facility] Last Admin: 08/18/16 10:35 Dose: 40 mg Rosuvastatin Calcium (Crestor) 5 mg PO HS [facility] Last Admin: 08/17/16 21:16 Dose: 5 mg Spironolactone (Aldactone) 25 mg PO DAILY [facility] Last Admin: 08/18/16 10:35 Dose: 25 mg Tiotropium [place] (Spiriva) 18 mcg INH RQ24 [facility] Last Admin: 08/18/16 07:27 Dose: 18 mcg - Labs Labs: 08/17/16 16:30 08/18/16 08:09 PT 13.3 SECONDS (9.7-12.2) H D 08/13/16 07:38 INR 1.2 D 08/13/16 07:38 APTT 108 SECONDS (21-34) H* 08/11/16 18:47 - Head Exam Head Exam: ATRAUMATIC, NORMOCEPHALIC - Eye Exam Eye Exam: Normal appearance - ENT Exam ENT Exam: Mucous Membranes Moist - Neck Exam Neck Exam: Normal Inspection - Respiratory Exam Respiratory Exam: Clear to Ausculation Bilateral - Cardiovascular Exam Cardiovascular Exam: REGULAR RHYTHM - GI/Abdominal Exam GI & Abdominal Exam: Soft, Normal Bowel Sounds - Extremities Exam Extremities Exam: Full ROM, Normal Inspection Assessment and Plan (1) Pleural effusion Assessment & Plan: Loculated pleural effusion in the left upper lobe Seen by thoracic and the plan is to repeat CAT scan in 3 months DISCHARGE HOME Status: Acute (2) COPD exacerbation Status: Acute
[2016-08-18 17:33] VITALS: BP 127/67; PULSE 69; RESP 20; TEMP 97.8
--- NOTE | 2016-08-18 23:09 | CP.PCM.PN ---
Subjective - Date & Time of Evaluation Date of Evaluation: 08/18/16 Time of Evaluation: 23:08 - Subjective Subjective: AFEBRILE. CLINICALLY SAME. NO NEW COMPLAINTS. SEEN BY THORACIC SURGEON.PLANS NOTED TO REPEAT CT CHEST IN 3 MONTHS. CRP HIGH pRObnp HIGH. pRO CALCITONIN LEVELS NORMAL. PLAN; TO OBSERVE fOLLOW-UP CT-CHEST IN 3 MONTHS ASAS PER THORACIC SURGEON. . Objective - Vital Signs/Intake and Output Vital Signs (last 24 hours): Temp Pulse Resp BP Pulse Ox 97.8 F 69 20 127/67 96 08/18/16 17:32 08/18/16 17:32 08/18/16 17:32 08/18/16 17:32 08/18/16 17:32 Intake and Output: 08/18/16 08/19/16 18:59 06:59 Intake Total 620 Balance 620 - Labs Labs: 08/17/16 16:30 08/18/16 08:09 PT 13.3 SECONDS (9.7-12.2) H D 08/13/16 07:38 INR 1.2 D 08/13/16 07:38 APTT 108 SECONDS (21-34) H* 08/11/16 18:47 - Constitutional Appears: No Acute Distress, Cachectic, Chronically Ill - Head Exam Head Exam: NORMAL INSPECTION - Eye Exam Eye Exam: EOMI, PERRL - ENT Exam ENT Exam: Normal Oropharynx - Neck Exam Neck Exam: Normal Inspection - Respiratory Exam Respiratory Exam: Rales, Rhonchi - Cardiovascular Exam Cardiovascular Exam: REGULAR RHYTHM, +S1, +S2 - GI/Abdominal Exam GI & Abdominal Exam: Soft, Normal Bowel Sounds - Extremities Exam Extremities Exam: absent: Calf Tenderness, Pedal Edema - Neurological Exam Neurological Exam: Awake, CN II-XII Intact, Oriented x3, Reflexes Normal - Psychiatric Exam Psychiatric exam: Normal Mood - Skin Skin Exam: Normal Color Assessment and Plan (1) Pleural effusion Assessment & Plan: IR TRY TO DO THORACENTESIS BUT UNABLE TO PERFORM DUE TO SMALL EFFUSIONS. THORACIC SURGEON FOLLOW-UP NOTED PATIENT TO BE OBSERVED AND REPEAT CT CHEST IN 3 MONTHS Status: Acute (2) Chronic systolic dysfunction of left ventricle Status: Acute (3) CHF exacerbation Assessment & Plan: DIURESE IS PER CARDIOLOGY. Status: Acute (4) Supratherapeutic INR Status: Acute (5) CAD (coronary artery disease) Status: Acute (6) HTN (hypertension) Status: Acute
[2016-08-19 10:14] VITALS: O2SAT 99
--- NOTE | 2016-08-23 07:54 | PCM.HF ---
Heart Failure Core Measure - Heart Failure Ejection Fraction: 40 % or Greater DIDIER Inhibitor Prescribed: Yes Beta-Harley Prescribed: Carvedilol Angiotensin II Receptor Hraley Prescribed: No Contraindication/Reason for not providing: ef>45 AnticoagulationTherapy for Atrial Fibrillation/Atrialflutter: No Contraindication/Reason for not providing: no hx of afib Aldosterone Antagonist Prescribed: Yes Hydralazine Nitrate Prescribed: No Contraindication/Reason for not providing: EF>45 Implantable Cardioverter Defibrillator Therapy: Yes Cardiac Resynchronization Therapy Prescribed: No Contraindication/Reason for not providing: PT HAS ICD - Follow up Will be discharged to: Home Follow Up Date (must be within 7 days from discharge): 08/22/16 Follow Up Time: 09:00
== END 2016-08-18 18:00 | disposition home or self-care (01) | DRG 186 ==
LOC: C.ER 16:09 → C.9E 19:27 → C.6T 20:34 → C.5T 08-17 21:50
PROVIDERS: ADMIT Internal Medicine; ATTEND Internal Medicine
DX: J90 Pleural effusion, not elsewhere classified (principal); I50.23 Acute on chronic systolic (congestive) heart failure; I48.2 Chronic atrial fibrillation; I11.0 Hypertensive heart disease with heart failure; E78.00 Pure hypercholesterolemia, unspecified; I25.10 Atherosclerotic heart disease of native coronary artery without angina pectoris; I25.2 Old myocardial infarction; I73.9 Peripheral vascular disease, unspecified; J44.9 Chronic obstructive pulmonary disease, unspecified; R79.1 Abnormal coagulation profile; Z79.01 Long term (current) use of anticoagulants; Z87.891 Personal history of nicotine dependence; Z95.810 Presence of automatic (implantable) cardiac defibrillator; R31.0 Gross hematuria

== ENCOUNTER 2017-07-16 01:32 | Inpatient (IN) | payer MEDICARE ==
[2017-07-16 01:32] VITALS: BMI 23.7
[2017-07-16] MEDS ORDERED: Albuterol-Ipratrop 3 mg / 0.5 (3 ml) UD ONE (01:42)
[2017-07-16] MEDS ORDERED: Albuterol 0.083% Inhal Sol (2.5 mg/3 mL) UD INH STA (01:57)
--- NOTE | 2017-07-16 01:59 | C.PDOC ---
History Of Present Illness 72 year old male with PMHx of pacemaker, CHF presents to the ED c/o SOB which has been going on for several weeks. Patient has also noticed increased swelling to his bilateral lower extremities. Patient admits he quit smoking but occasionally still smokes. Patient has significant financial pressures so he was avoiding seeking medical attention. Patient denies couhg, fever, chills, Hx of COPD, weakness, numbness. Chief Complaint (Nursing): Shortness Of Breath History Per: Patient History/Exam Limitations: no limitations Onset/Duration Of Symptoms: Days Current Symptoms Are (Timing): Still Present Initiating Event: Out Of Medications Quality: "Pain" Exacerbating Factor(s): Exertion Associated Symptoms: Ankle/Leg Swelling Recent travel outside of the [place]: No Additional History Per: Patient Past Medical History Reviewed: Historical Data, Nursing Documentation, Vital Signs Vital Signs: Last Vital Signs Temp 97.7 F 07/16/17 05:02 Pulse 92 H 07/16/17 05:02 Resp 17 07/16/17 05:02 BP 140/85 07/16/17 05:02 Pulse Ox 100 07/16/17 05:02 - Medical History PMH: Atrial Fibrillation, CHF, COPD (Emphysema), Emphysema, HTN Denies: HIV, Chronic Kidney Disease Surgical History: Hernia Repair, Pacemaker Family History: States: Unknown Family Hx - Social History Hx Alcohol Use: No Hx Substance Use: No - Immunization History Hx Tetanus Toxoid Vaccination: No Hx Influenza Vaccination: No Hx Pneumococcal Vaccination: No Review Of Systems Constitutional: Negative for: Fever, Chills Cardiovascular: Negative for: Chest Pain Respiratory: Positive for: Shortness of Breath. Negative for: Cough Gastrointestinal: Negative for: Abdominal Pain Musculoskeletal: Positive for: Leg Pain Skin: Negative for: Rash Neurological: Negative for: Weakness, Numbness Physical Exam - Physical Exam Appears: Non-toxic, Other (Thin) Skin: Normal Color, Warm, Dry Head: Atraumatic, Normacephalic Eye(s): bilateral: Normal Inspection Nose: No Discharge Oral Mucosa: Moist Neck: Normal ROM, Supple Chest: Other (asymmetry to chest wall movements left vs right. Right side does not move as much with respirations.) Cardiovascular: Rhythm Regular, No Murmur Respiratory: Decreased Breath Sounds (right side), No Rales, Rhonchi ( inspiratory and expiratory ), No Wheezing Gastrointestinal/Abdominal: Soft, No Tenderness, No Guarding, No Rebound Extremity: Normal ROM, Pedal Edema (2+ mid calfs), No Calf Tenderness, Capillary Refill (< 2 seconds) Neurological/Psych: Oriented x3, Normal Motor, Normal Sensation, Other (no focal deficits) Gait: Steady ED Course And Treatment - Laboratory Results Result Diagrams: 07/16/17 02:09 07/16/17 02:09 ECG: Interpreted By Me, Viewed By Me Interpretation Of ECG: Paced rhythm with right bundle type pattern, 100% paced. No ectopy, no acute ST/T wave changes Rate From EC (BPM) O2 Sat by Pulse Oximetry: 84 - Radiology CXR: Interpreted by Me, Viewed By Me CXR Interpretation: Yes: Other (B/L air space opacities). No: Pnemothorax (no obvious) Medical Decision Making Medical Decision Making: Impression: SOB due to CHF vs COPD vs Spontaneous pneumothorax Plan: * Labs * CXR * Albuterol 10 mg IH * Solumedrol 125 mg IVP * Blood culture * Nebulizer treatment * Influenza A B * UA Disposition - Disposition Disposition: HOSPITALIZED Disposition Time: 05:06 Condition: FAIR - Clinical Impression Clinical Impression: Chronic congestive heart failure - Scribe Statement The provider has reviewed the documentation as recorded by the Scribe Israel Weeks All medical record entries made by the Scribe were at my direction and personally dictated by me. I have reviewed the chart and agree that the record accurately reflects my personal performance of the history, physical exam, medical decision making, and the department course for this patient. I have also personally directed, reviewed, and agree with the discharge instructions and disposition.
[2017-07-16 02:13] LABS: BASO # 0.1 K/uL (0.0-0.2); EOS # 0.2 K/uL (0.0-0.7); HEMOGLOBIN 12.6 g/dL (12.0-18.0); LYMPH # 1.1 K/uL (1.0-4.3); LYMPH % 13.2 % (20.0-40.0); MEAN CELL VOLUME 91.5 fL (80.0-94.0); MEAN CORPUSCULAR HEMOGLOBIN 30.5 pg (27.0-31.0); MEAN CORPUSCULAR HGB CONC 33.3 g/dL (33.0-37.0); MEAN PLATELET VOLUME 8.9 fL (7.2-11.7); MONO # 1.1 K/uL (0.0-0.8); MONO % 13.2 % (0.0-10.0); NEUT # 5.8 K/uL (1.8-7.0); NEUT % 70.6 % (50.0-75.0); RBC 4.15 Mil/uL (4.40-5.90); RED CELL DISTRIBUTION WIDTH 14.6 % (11.5-14.5); WHITE BLOOD COUNT 8.2 K/uL (4.8-10.8)
[2017-07-16 02:30] LABS: ALB/GLOB RATIO 0.9 (1.0-2.1); ALBUMIN 3.2 g/dL (3.5-5.0); CALCIUM 8.3 mg/dl (8.6-10.4); GFR AFRICAN-AMERICAN > 60; GFR NON-AFRICAN AMERICAN > 60
[2017-07-16] MEDS ORDERED: Albuterol 0.083% Inhal Sol (2.5 mg/3 mL) UD ONE ×2 (02:35→02:38)
[2017-07-16 02:42] LABS: B-TYPE NATRIURETIC PEPTIDE 7280 pg/mL (0-900)
[2017-07-16 02:48] LABS: ALT/SGPT 49 U/L (21-72); AST/SGOT 58 U/L (17-59); BLOOD UREA NITROGEN 31 mg/dL (9-20)
[2017-07-16] MEDS ORDERED: Nitroglycerin 2% Ointment Foilpak UD TOP STA (03:24)
[2017-07-16] MEDS ORDERED: Nitroglycerin 2% Ointment Foilpak UD TOP ONE (03:39)
--- NOTE | 2017-07-16 04:51 | CP.PCM.HP ---
History of Present Illness - History of Present Illness History of Present Illness: 72 year old [place] male with history of hypertension, hypercholesterolemia, COPD , atrial fibrillation, ischemic cardiomyopathy s/p AICD presents to the ED tonight complaining of chest pain and shortness of breath. Patient reports his symptoms have been going for the past few days and the shortness of breath has been getting worse which prompted the patient to come to the ED. Patient received ASA and sublingual nitroglycerin en route to the ED which resolved his chest pain. Patient also report have worsening bilateral lower extremity swelling. Patient cannot walk more than one block without taking a break due to shortness of breath. Patient claims to be compliant with his home medications, however he still smokes cigarettes once in a while. Patient denies fever, chills , headache, abdominal pain, nausea, or vomiting. PMHx: [place], a.fib, PVD, CHF, CAD PSHx: hernia repair, pacemaker/ AICD Allergy: NKDA FamHx: denies SocHx: former smoker heavy smoker, current smokes 1-3 cigarettes daily. Denies alcohol and drugs Meds: ASA 81mg, lisinopril 5mg, Furosemide 40mg BID, Digoxin 0.125mg, Spironolactone 25mg, carvedilol 12.5mg BID, Atorvastatin 10mg Present on Admission - Present on Admission Any Indicators Present on Admission: No Review of Systems - Constitutional Constitutional: As Per HPI. absent: Chills, Fever - EENT Eyes: As Per HPI. absent: Blind Spots, Blurred Vision Ears: As Per HPI. absent: Dizziness Nose/Mouth/Throat: As Per HPI. absent: Epistaxis, Nasal Obstruction, Nasal Trauma - Cardiovascular Cardiovascular: As Per HPI, Chest Pain, Pedal Edema. absent: Diaphoresis - Respiratory Respiratory: As Per HPI, Cough, Dyspnea - Gastrointestinal Gastrointestinal: As Per HPI. absent: Diarrhea, Nausea, Vomiting - Genitourinary Genitourinary: As Per HPI. absent: Dysuria, Flank Pain, Urinary Incontinence - Reproductive: Male Reproductive:Male: As Per HPI - Musculoskeletal Musculoskeletal: As Per HPI - Integumentary Integumentary: As Per HPI, Swelling. absent: Rash - Neurological Neurological: As Per HPI. absent: Dizziness, Syncope, Tremor - Psychiatric Psychiatric: As Per HPI. absent: Anxiety, Depression - Endocrine Endocrine: As Per HPI. absent: Flushing - Hematologic/Lymphatic Hematologic: As Per HPI Past Patient History - Infectious Disease Hx of Infectious Diseases: None - Past Medical History & Family History Past Medical History?: No - Past Social History Smoking Status: Heavy Smoker > 10 Cigarettes Daily - CARDIAC Hx Atrial Fibrillation: Yes Hx Congestive Heart Failure: Yes Hx Hypertension: Yes Hx Pacemaker: Yes - PULMONARY Hx Chronic Obstructive Pulmonary Disease (COPD): Yes (Emphysema) Hx Emphysema: Yes - NEUROLOGICAL Hx Neurological Disorder: No - HEENT Hx HEENT Problems: Yes - RENAL Hx Chronic Kidney Disease: No - ENDOCRINE/METABOLIC Hx Endocrine Disorders: No - HEMATOLOGICAL/ONCOLOGICAL Hx Human Immunodeficiency Virus (HIV): No - INTEGUMENTARY Hx Dermatological Problems: No - MUSCULOSKELETAL/RHEUMATOLOGICAL Hx Musculoskeletal Disorders: No Hx Falls: No - GASTROINTESTINAL Hx Gastrointestinal Disorders: No - GENITOURINARY/GYNECOLOGICAL Hx Genitourinary Disorders: No - PSYCHIATRIC Hx Substance Use: No - SURGICAL HISTORY Other/Comment: Surgeries: Hernia repair and Pacemaker insertion - ANESTHESIA Hx Anesthesia: Yes Hx Anesthesia Reactions: No Meds Allergies/Adverse Reactions: Allergies Allergy/AdvReac Type Severity Reaction Status Date / Time No Known Allergies Allergy Verified 07/16/17 01:50 Physical Exam - Constitutional Appears: Non-toxic, Chronically Ill - Head Exam Head Exam: ATRAUMATIC, NORMOCEPHALIC - Eye Exam Eye Exam: Normal appearance Pupil Exam: NORMAL ACCOMODATION - ENT Exam ENT Exam: Mucous Membranes Moist - Neck Exam Neck exam: Positive for: Normal Inspection - Respiratory Exam Respiratory Exam: Decreased Breath Sounds, Rhonchi, NORMAL BREATHING PATTERN. absent: Wheezes, Respiratory Distress - Cardiovascular Exam Cardiovascular Exam: REGULAR RHYTHM, +S1, +S2. absent: Diastolic murmur, Systolic Murmur - GI/Abdominal Exam GI & Abdominal Exam: Normal Bowel Sounds, Soft. absent: Tenderness - Extremities Exam Extremities exam: Positive for: pedal pulses present. Negative for: normal inspection (bilateral lower extremity swelling, +2 pitting edema) - Neurological Exam Neurological exam: Alert, Oriented x3 - Psychiatric Exam Psychiatric exam: Normal Affect, Normal Mood - Skin Skin Exam: Dry, Warm Results - Vital Signs Recent Vital Signs: Last Vital Signs Temp 98 F 07/16/17 03:41 Pulse 90 07/16/17 03:41 Resp 24 07/16/17 03:41 BP 146/92 H 07/16/17 03:41 Pulse Ox 97 07/16/17 03:41 - Labs Result Diagrams: 07/16/17 02:09 07/16/17 02:09 Labs: Laboratory Results - last 24 hr 07/16/17 07/16/17 07/16/17 01:44 02:09 02:09 WBC 8.2 RBC 4.15 L Hgb 12.6 Hct 38.0 MCV 91.5 MCH 30.5 MCHC 33.3 RDW 14.6 H Plt Count 199 MPV 8.9 Neut % (Auto) 70.6 Lymph % (Auto) 13.2 L [place] % (Auto) 13.2 H Eos % (Auto) 2.0 Baso % (Auto) 1.0 Neut # (Auto) 5.8 Lymph # (Auto) 1.1 [place] # (Auto) 1.1 H Eos # (Auto) 0.2 Baso # (Auto) 0.1 Sodium 143 Potassium 5.5 H Chloride 105 Carbon Dioxide 27 Anion Gap 17 BUN 31 H Creatinine 0.9 Est GFR ( Amer) > 60 Est GFR (Non-Af Amer) > 60 POC Glucose (mg/dL) 96 Random Glucose 90 Calcium 8.3 L Total Bilirubin 0.6 AST 58 ALT 49 Alkaline Phosphatase 54 Troponin I 0.1040 NT-Pro-B Natriuret Pep 7280 H Total Protein 6.6 Albumin 3.2 L Globulin 3.4 Albumin/Globulin Ratio 0.9 L Influenza Typ A,B (EIA) 07/16/17 02:16 WBC RBC Hgb Hct MCV MCH MCHC RDW Plt Count MPV Neut % (Auto) Lymph % (Auto) [place] % (Auto) Eos % (Auto) Baso % (Auto) Neut # (Auto) Lymph # (Auto) [place] # (Auto) Eos # (Auto) Baso # (Auto) Sodium Potassium Chloride Carbon Dioxide Anion Gap BUN Creatinine Est GFR ( Amer) Est GFR (Non-Af Amer) POC Glucose (mg/dL) Random Glucose Calcium Total Bilirubin AST ALT Alkaline Phosphatase Troponin I NT-Pro-B Natriuret Pep Total Protein Albumin Globulin Albumin/Globulin Ratio Influenza Typ A,B (EIA) Negative for flu a/b Assessment & Plan - Assessment and Plan (Free Text) Assessment: CHF Exacerbation -BNP 7280 -CXR shows patchy opacities both lung bases. Nonspecific. AICD -Lasix 40mg IV Q8hr -Coreg 12.5mg po BID -Digoxin 0.125mg po -Spironolactone 25mg daily -Echo 09/02/16 LV systolic function severely impaired, EF 10-15% -F/U LE doppler for DVT -Daily weight, strict Is and Os Chest pain r/o ACS -troponin negative, repeat pending -EKG no acute ST changes -CXR shows patchy opacities both lung bases. Nonspecific. AICD Atrial Fibrillation -Digoxin 0.125mg -ASA 81mg COPD -Duoneb Q2h prn HTN -coreg 12.5mg po bid -lisinopril 5mg po daily CAD -ASA 81mg -Crestor 5mg Prophylactic measures -Protonix -Lovenox -Heart healthy 2g Na
[2017-07-16 05:16] LABS: SQUAMOUS EPITHIAL < 1 /hpf (0-5); URINE BILIRUBIN NEGATIVE (NEGATIVE); URINE BLOOD NEGATIVE (NEGATIVE); URINE CLARITY Clear (Clear); URINE COLOR Straw (YELLOW); URINE GLUCOSE (UA) NORMAL (Normal); URINE LEUKOCYTE ESTERASE NEG Leu/uL (Negative); URINE PROTEIN 1+ mg/dL (NEGATIVE); URINE UROBILINOGEN NORMAL mg/dL (0.2-1.0)
[2017-07-16] MEDS ORDERED: Albuterol-Ipratrop 3 mg / 0.5 (3 ml) UD INH PRN ×2 (07:51→10:37)
[2017-07-16 08:33] LABS: CK-MB 4.23 ng/mL (0.0-3.38); TROPONIN I 0.107 ng/mL (0.00-0.120)
--- NOTE | 2017-07-16 08:39 | RAD ---
PROCEDURE: CHEST RADIOGRAPH, 1 VIEW HISTORY: SOB COMPARISON: 08/11/2016 FINDINGS: LUNGS: Patchy opacities at both lung bases common nonspecific. Possible pneumonia. PLEURA: No pneumothorax or pleural fluid seen. CARDIOVASCULAR: Normal heart size. AICD. No congestive change. OSSEOUS STRUCTURES: No significant abnormalities. VISUALIZED UPPER ABDOMEN: Normal. OTHER FINDINGS: None. IMPRESSION: Patchy opacities both lung bases. Nonspecific. AICD.
[2017-07-16] MEDS ORDERED: Pantoprazole 40 mg EC Tab PO SCH (10:00)
[2017-07-16] MEDS ORDERED: Pantoprazole 40 mg EC Tab PO ONE (10:25)
[2017-07-16] MEDS ORDERED: Enoxaparin 40 mg Syringe ONE (10:26)
--- NOTE | 2017-07-16 10:32 | CP.PCM.PN ---
Subjective - Date & Time of Evaluation Date of Evaluation: 07/16/17 Time of Evaluation: 10:29 - Subjective Subjective: Patient seen and examined at bedside States breathing has improved as has his chest pain although he is still complaining of some chest pain No diaphoresis, nausea, vomiting Complains of swelling of the lower extremities bilaterally. Objective - Vital Signs/Intake and Output Vital Signs (last 24 hours): Temp Pulse Resp BP Pulse Ox 98.1 F 92 H 20 134/74 95 07/16/17 06:36 07/16/17 07:48 07/16/17 07:48 07/16/17 09:55 07/16/17 07:48 Intake and Output: 07/16/17 07/16/17 06:59 18:59 Output Total 1350 300 Balance -1350 -300 - Medications Medications: Current Medications Albuterol/Ipratropium (Duoneb 3 Mg/0.5 Mg (3 Ml) Ud) 3 ml INH RQ2 PRN PRN Reason: Shortness of Breath Aspirin (Ecotrin) 81 mg PO DAILY [facility] Last Admin: 07/16/17 09:55 Dose: 81 mg Carvedilol (Coreg) 12.5 mg PO BID [facility] Last Admin: 07/16/17 09:55 Dose: 12.5 mg Digoxin (Digoxin) 0.125 mg PO DAILY@1800 [facility] Enoxaparin Sodium (Lovenox) 40 mg SC DAILY [facility] Furosemide (Lasix) 40 mg IVP Q8 [facility] Last Admin: 07/16/17 06:28 Dose: Not Given Lisinopril (Zestril) 5 mg PO DAILY [facility] Last Admin: 07/16/17 09:55 Dose: 5 mg Pantoprazole Sodium (Protonix Ec Tab) 40 mg PO DAILY [facility] Rosuvastatin Calcium (Crestor) 5 mg PO HS [facility] Spironolactone (Aldactone) 25 mg PO DAILY [facility] Last Admin: 07/16/17 09:55 Dose: 25 mg - Labs Labs: 07/16/17 02:09 07/16/17 02:09 - Constitutional Appears: No Acute Distress - Head Exam Head Exam: ATRAUMATIC, NORMAL INSPECTION, NORMOCEPHALIC - Eye Exam Eye Exam: EOMI Pupil Exam: NORMAL ACCOMODATION - ENT Exam ENT Exam: Mucous Membranes Moist - Respiratory Exam Respiratory Exam: Rales, NORMAL BREATHING PATTERN Additional comments: bilateral Bases - Cardiovascular Exam Cardiovascular Exam: Tachycardia - GI/Abdominal Exam GI & Abdominal Exam: Soft, Normal Bowel Sounds. absent: Distended, Tenderness - Extremities Exam Additional comments: pitting edema 2+ Lower extremities - Neurological Exam Neurological Exam: Alert, Awake, Oriented x3 - Psychiatric Exam Psychiatric exam: Normal Affect, Normal Mood - Skin Skin Exam: Dry, Intact, Normal Color, Warm Assessment and Plan (1) CHF exacerbation Assessment & Plan: ASA 81 PO QD Crestor 5 PO HS Coreg 12.5 PO BID Zestril 5 PO QD Lasix 40 IV BID Spironolcatone 25 PO QD Status: Acute (2) COPD exacerbation Assessment & Plan: Duonebs Q4 PRN Status: Acute (3) Chronic atrial fibrillation Assessment & Plan: Dig 0.125 PO BID Coreg 12.5 PO BID Status: Acute (4) CAD (coronary artery disease) Assessment & Plan: ASA 81 QD Crestor 5 PO HS Status: Acute (5) HTN (hypertension) Assessment & Plan: Zestril 5mg PO BID Coreg 12.5 PO BID Status: Acute (6) Insomnia Assessment & Plan: Ambien 5 PO HS Status: Acute (7) Prophylactic measure Assessment & Plan: Lovenox 40 SC QD GI PPX not indicated Status: Acute
[2017-07-16] MEDS ORDERED: Sod Polystyrene Sulf 15 gm/60 ml Susp PO ONE (10:40)
[2017-07-16] MEDS ORDERED: Sod Polystyrene Sulf 15 gm/60 ml Susp ONE (11:33)
[2017-07-16] MEDS: Enoxaparin 40 mg Syringe SC SCH (11:51)
--- NOTE | 2017-07-16 11:56 | VASCLAB ---
PROCEDURE: Lower Extremity Venous Duplex Exam. HISTORY: lower extremity swelling, r/o DVT PRIORS: None. TECHNIQUE: Bilateral common femoral, femoral, popliteal and posterior tibial, peroneal and great saphenous veins were evaluated. Flow was assessed with color Doppler, compressibility, assessment of phasic flow and augmentation response. Report prepared by Edgardo Douglass, DIVYA, RVT FINDINGS: RIGHT: 1. Common Femoral Vein: 1.1. Compressibility - Fully compressible: Thrombus - None : Flow - Phasic: Augmentation -Normal: Reflux - None. 2. Femoral Vein: 2.1. Compressibility - Fully compressible: Thrombus - None : Flow - Phasic: Augmentation -Normal: Reflux - None. 3. Popliteal Vein: 3.1. Compressibility - Fully compressible: Thrombus - None : Flow - Phasic: Augmentation -Normal: Reflux - Severe. 4. Posterior Tibial Vein: 4.1. Compressibility - Fully compressible: Thrombus - None: Flow - Phasic: Augmentation -Normal: Reflux - None. 5. Peroneal Vein: 5.1. Compressibility - Fully compressible: Thrombus - None: Flow - Phasic: Augmentation -Normal: Reflux - None. 6. Great Saphenous Vein: 6.1. Compressibility - Fully compressible: Thrombus - None: Flow - Phasic: Augmentation - Normal: Reflux - Severe. LEFT: 1. Common Femoral Vein: 1.1. Compressibility - Fully compressible: Thrombus - None: Flow - Phasic: Augmentation -Normal: Reflux - None. 2. Femoral Vein: 2.1. Compressibility - Fully compressible: Thrombus - None: Flow - Phasic: Augmentation -Normal: Reflux - None. 3. Popliteal Vein: 3.1. Compressibility - Fully compressible: Thrombus - None : Flow - Phasic: Augmentation -Normal: Reflux - None. 4. Posterior Tibial Vein: 4.1. Compressibility - Fully compressible: Thrombus - None: Flow - Phasic: Augmentation -Normal: Reflux - None. 5. Peroneal Vein: 5.1. Compressibility - Fully compressible: Thrombus - None: Flow - Phasic: Augmentation -Normal: Reflux - None. 6. Great Saphenous Vein: 6.1. Compressibility - Fully compressible: Thrombus - None: Flow - Phasic: Augmentation - Normal: Reflux - None. OTHER FINDINGS: Right: None significant. Left: None significant. IMPRESSION: Right: No evidence of deep or superficial vein thrombosis of the right lower extremity. Severe valvular incompetence of the right popliteal and greater saphenous vein. Left: No evidence of deep or superficial vein thrombosis of the left lower extremity.
[2017-07-16 14:01] LABS: TROPONIN I 0.077 ng/mL (0.00-0.120)
[2017-07-16 14:02] LABS: CK-MB 3.68 ng/mL (0.0-3.38)
[2017-07-16] MEDS: Digoxin 125 mcg (0.125 mg) Tab PO SCH (17:39)
--- NOTE | 2017-07-16 19:04 | RAD ---
HISTORY: CHF COMPARISON: July 16, 2017. Time of the most recent examination: 02:08. FINDINGS: LUNGS: Interval improvement in multifocal infiltrates. PLEURA: No significant pleural effusion identified, no pneumothorax apparent. CARDIOVASCULAR: Persisting cardiomegaly. Position/ configuration of pacemaker device: Satisfactory. OSSEOUS STRUCTURES: No significant abnormalities. VISUALIZED UPPER ABDOMEN: Normal. OTHER FINDINGS: None. IMPRESSION: Improving congestive heart failure.
[2017-07-17 01:36] VITALS: RESP 20
--- NOTE | 2017-07-17 07:40 | CP.PCM.PN ---
Subjective - Date & Time of Evaluation Date of Evaluation: 07/17/17 Time of Evaluation: 07:39 - Subjective Subjective: patient seen and examined at bedside having increased SOB despite lasix and duonebs complaining of back pain which is chronic complaining of R. leg pain and swelling which is nonpitting No other complaints at this time. Objective - Vital Signs/Intake and Output Vital Signs (last 24 hours): Temp Pulse Resp BP Pulse Ox 97.6 F 89 20 129/82 95 07/17/17 07:00 07/17/17 07:00 07/17/17 07:00 07/17/17 07:00 07/17/17 07:00 - Medications Medications: Current Medications Albuterol/Ipratropium (Duoneb 3 Mg/0.5 Mg (3 Ml) Ud) 3 ml INH RQ4 [facility] Aspirin (Ecotrin) 81 mg PO DAILY [facility] Last Admin: 07/16/17 09:55 Dose: 81 mg Carvedilol (Coreg) 12.5 mg PO BID [facility] Last Admin: 07/16/17 17:39 Dose: 12.5 mg Digoxin (Digoxin) 0.125 mg PO DAILY@1800 [facility] Last Admin: 07/16/17 17:39 Dose: 0.125 mg Enoxaparin Sodium (Lovenox) 40 mg SC DAILY [facility] Last Admin: 07/16/17 11:51 Dose: 40 mg Furosemide (Lasix) 40 mg IVP Q12 [facility] Last Admin: 07/16/17 21:09 Dose: 40 mg Lisinopril (Zestril) 5 mg PO DAILY [facility] Last Admin: 07/16/17 09:55 Dose: 5 mg Rosuvastatin Calcium (Crestor) 5 mg PO HS [facility] Last Admin: 07/16/17 21:09 Dose: 5 mg Spironolactone (Aldactone) 25 mg PO DAILY [facility] Last Admin: 07/16/17 09:55 Dose: 25 mg Zolpidem Tartrate (Ambien) 5 mg PO HS PRN PRN Reason: Insomnia Last Admin: 07/16/17 21:09 Dose: 5 mg - Labs Labs: 07/16/17 02:09 07/16/17 02:09 - Constitutional Appears: Well - Head Exam Head Exam: ATRAUMATIC, NORMAL INSPECTION, NORMOCEPHALIC - Eye Exam Eye Exam: EOMI, Normal appearance, PERRL Pupil Exam: NORMAL ACCOMODATION, PERRL - ENT Exam ENT Exam: Mucous Membranes Moist, Normal Exam - Neck Exam Neck Exam: Full ROM, Normal Inspection. absent: Lymphadenopathy - Respiratory Exam Respiratory Exam: Rales - Cardiovascular Exam Cardiovascular Exam: REGULAR RHYTHM, +S1, +S2. absent: Murmur - GI/Abdominal Exam GI & Abdominal Exam: Soft, Normal Bowel Sounds. absent: Tenderness - Rectal Exam Rectal Exam: NORMAL INSPECTION - Exam Exam: Circumcision, NORMAL INSPECTION External exam: NORMAL EXTERNAL EXAM Speculum exam: NORMAL SPECULUM EXAM Bimanual exam: NORMAL BIMANUAL EXAM - Extremities Exam Extremities Exam: Full ROM, Normal Capillary Refill, Normal Inspection. absent : Joint Swelling, Pedal Edema - Back Exam Back Exam: NORMAL INSPECTION - Neurological Exam Neurological Exam: Alert, Awake, CN II-XII Intact, Normal Gait, Oriented x3 - Psychiatric Exam Psychiatric exam: Normal Affect, Normal Mood - Skin Skin Exam: Dry, Intact, Normal Color, Warm Assessment and Plan (1) CHF exacerbation Assessment & Plan: ASA 81 PO QD Crestor 5 PO HS Coreg 12.5 PO BID Zestril 5 PO QD Lasix 40 IV BID Spironolcatone 25 PO QD EF in 09/16 shows EF of 10-15% AICD Status: Acute (2) COPD exacerbation Assessment & Plan: Duonebs Q4 PRN Status: Acute (3) Chronic atrial fibrillation Assessment & Plan: Dig 0.125 PO BID Coreg 12.5 PO BID Status: Acute (4) CAD (coronary artery disease) Assessment & Plan: ASA 81 QD Crestor 5 PO HS Status: Acute (5) HTN (hypertension) Assessment & Plan: Zestril 5mg PO BID Coreg 12.5 PO BID Status: Acute (6) Insomnia Assessment & Plan: Ambien 5 PO HS Status: Acute (7) Prophylactic measure Assessment & Plan: Lovenox 40 SC QD GI PPX not indicated Status: Acute
[2017-07-17] MEDS: Albuterol-Ipratrop 3 mg / 0.5 (3 ml) UD INH SCH ×3 (07:46→23:45)
[2017-07-17 08:02] LABS: BASO # 0.1 K/uL (0.0-0.2); BASO % 0.5 % (0.0-2.0); EOS % 0.1 % (0.0-4.0); HEMOGLOBIN 12.2 g/dL (12.0-18.0); MEAN CELL VOLUME 90.4 fL (80.0-94.0); MEAN CORPUSCULAR HEMOGLOBIN 29.7 pg (27.0-31.0); MEAN CORPUSCULAR HGB CONC 32.8 g/dL (33.0-37.0); MEAN PLATELET VOLUME 9.3 fL (7.2-11.7); MONO # 1.6 K/uL (0.0-0.8); MONO % 11.4 % (0.0-10.0); NEUT # 11.1 K/uL (1.8-7.0); NRBC % 0.1 % (0.0-2.0); PLATELET COUNT 214 K/uL (130-400); RBC 4.12 Mil/uL (4.40-5.90); RED CELL DISTRIBUTION WIDTH 14.2 % (11.5-14.5); WHITE BLOOD COUNT 13.7 K/uL (4.8-10.8)
[2017-07-17 08:27] LABS: ALT/SGPT 34 U/L (21-72); AST/SGOT 41 U/L (17-59); BLOOD UREA NITROGEN 52 mg/dL (9-20); CALCIUM 8.3 mg/dl (8.6-10.4); GFR AFRICAN-AMERICAN > 60; GFR NON-AFRICAN AMERICAN 54
--- NOTE | 2017-07-17 10:04 | RAD ---
Chest x-ray single frontal view History: Shortness of breath. Comparison: 07/16/2017 Findings: Prominent confluent somewhat ill-defined consolidative opacifications seen within the mid to lower lung zones bilaterally. Associated bilateral pleural effusions. Cardiomegaly. Enlarged ectatic aorta. Calcification at the aortic knob. Right paratracheal prominence may represent prominent vasculature. Left-sided pacemaker. Degenerative changes in the spine and shoulders. Impression: Prominent confluent somewhat ill-defined consolidative opacifications seen within the mid to lower lung zones bilaterally. Associated bilateral pleural effusions. Cardiomegaly. Enlarged ectatic aorta. Calcification at the aortic knob. Right paratracheal prominence may represent prominent vasculature. Left-sided pacemaker.
[2017-07-17] MEDS: Azithromycin 500 MG in Sodium Chloride 0.9% 250 ML IVPB SCH (10:11)
[2017-07-17] MEDS: Enoxaparin 40 mg Syringe SC SCH (10:22)
[2017-07-17 10:50] LABS: ARTERIAL BLOOD GAS HCO3 31.6 mmol/L (21-28); ARTERIAL BLOOD GAS O2 SAT 98.3 % (95-98); ARTERIAL BLOOD GAS PCO2 59 mm/Hg (35-45); ARTERIAL BLOOD GAS PH 7.39 (7.35-7.45); ARTERIAL BLOOD GAS PO2 85 mm/Hg (80-100); ARTERIAL BLOOD GAS TCO2 37.5 mmol/L (22-28)
[2017-07-17] MEDS ORDERED: cefTRIAXone IV 1 gm in Dextros 50 ML IVPB SCH (11:30)
[2017-07-17 11:42] LABS: BANDS 3 % (0-2); LYMPHOCYTE 7 % (20-40); MONOCYTE 10 % (0-10); NEUTROPHIL 80 % (50-75); PLATELET ESTIMATE NORMAL (NORMAL); TOTAL CELLS COUNTED 100
--- NOTE | 2017-07-17 12:35 | CARD ---
APPROVED REPORT EKG Measurement Heart [id number] <Conclusion> Ventricular-paced rhythm Abnormal ECG
[2017-07-17 17:15] VITALS: PULSE 66
[2017-07-17] MEDS: Digoxin 125 mcg (0.125 mg) Tab PO SCH (17:15)
[2017-07-18] MEDS: Albuterol-Ipratrop 3 mg / 0.5 (3 ml) UD INH SCH ×4 (03:10→15:57)
[2017-07-18] MEDS: Enoxaparin 40 mg Syringe SC SCH (09:04)
[2017-07-18] MEDS: Azithromycin 500 MG in Sodium Chloride 0.9% 250 ML IVPB SCH (09:12)
[2017-07-18 15:26] VITALS: O2SAT 95
[2017-07-18 15:51] VITALS: BP 106/72; PULSE 63; TEMP 97.2
--- NOTE | 2017-07-19 18:04 | CP.PCM.DIS ---
Provider - Provider Date of Admission: 07/16/17 03:38 Attending physician: Warren Gonzalez Jr, MD Primary care physician: Carlos Time Spent in preparation of Discharge (in minutes): 45 Diagnosis - Discharge Diagnosis (1) CHF exacerbation Status: Acute Priority: High (2) COPD exacerbation Status: Acute (3) Chronic atrial fibrillation Status: Acute (4) CAD (coronary artery disease) Status: Acute (5) HTN (hypertension) Status: Acute (6) Insomnia Status: Acute (7) Prophylactic measure Status: Acute Hospital Course - Lab Results Lab Results: Micro Results 07/16/17 02:00 Blood Blood Culture - Preliminary NO GROWTH AFTER 3 DAYS 07/16/17 02:30 Blood Blood Culture - Preliminary NO GROWTH AFTER 3 DAYS Most Recent Lab Values WBC 13.7 K/uL (4.8-10.8) H D 07/17/17 07:53 RBC 4.12 Mil/uL (4.40-5.90) L 07/17/17 07:53 Hgb 12.2 g/dL (12.0-18.0) 07/17/17 07:53 Hct 37.2 % (35.0-51.0) 07/17/17 07:53 MCV 90.4 fL (80.0-94.0) 07/17/17 07:53 MCH 29.7 pg (27.0-31.0) 07/17/17 07:53 MCHC 32.8 g/dL (33.0-37.0) L 07/17/17 07:53 RDW 14.2 % (11.5-14.5) 07/17/17 07:53 Plt Count 214 K/uL (130-400) 07/17/17 07:53 MPV 9.3 fL (7.2-11.7) 07/17/17 07:53 Neut % (Auto) 81.0 % (50.0-75.0) H 07/17/17 07:53 Lymph % (Auto) 7.0 % (20.0-40.0) L 07/17/17 07:53 Craven % (Auto) 11.4 % (0.0-10.0) H 07/17/17 07:53 Eos % (Auto) 0.1 % (0.0-4.0) 07/17/17 07:53 Baso % (Auto) 0.5 % (0.0-2.0) 07/17/17 07:53 Neut # (Auto) 11.1 K/uL (1.8-7.0) H 07/17/17 07:53 Lymph # (Auto) 1.0 K/uL (1.0-4.3) 07/17/17 07:53 Craven # (Auto) 1.6 K/uL (0.0-0.8) H 07/17/17 07:53 Eos # (Auto) 0.0 K/uL (0.0-0.7) 07/17/17 07:53 Baso # (Auto) 0.1 K/uL (0.0-0.2) 07/17/17 07:53 Neutrophils % (Manual) 80 % (50-75) H 07/17/17 07:53 Band Neutrophils % 3 % (0-2) H 07/17/17 07:53 Lymphocytes % (Manual) 7 % (20-40) L 07/17/17 07:53 Monocytes % (Manual) 10 % (0-10) 07/17/17 07:53 Platelet Estimate Normal (NORMAL) 07/17/17 07:53 RBC Morphology Normal 07/17/17 07:53 Puncture Site Rb 07/17/17 10:46 pCO2 59 mm/Hg (35-45) H 07/17/17 10:46 pO2 85 mm/Hg (80-100) 07/17/17 10:46 HCO3 31.6 mmol/L (21-28) H 07/17/17 10:46 ABG pH 7.39 (7.35-7.45) 07/17/17 10:46 ABG Total CO2 37.5 mmol/L (22-28) H 07/17/17 10:46 ABG O2 Saturation 98.3 % (95-98) H 07/17/17 10:46 ABG Base Excess 8.6 mmol/L (-2.0-3.0) H 07/17/17 10:46 Maicol Test Na 07/17/17 10:46 ABG Potassium 3.5 mmol/L (3.6-5.2) L 07/17/17 10:46 A-a O2 Difference 55.0 mm/Hg 07/17/17 10:46 Respiratory Index 0.6 07/17/17 10:46 Sodium 140.0 mmol/l (132-148) 07/17/17 10:46 Chloride 103.0 mmol/L (98-107) 07/17/17 10:46 Glucose 166 mg/dl (75-110) H 07/17/17 10:46 Lactate 1.3 mmol/L (0.7-2.1) 07/17/17 10:46 Liter Flow 3.0 07/17/17 10:46 FiO2 30.0 % 07/17/17 10:46 Sodium 140 mmol/L (132-148) 07/17/17 07:53 Potassium 4.6 mmol/L (3.6-5.2) 07/17/17 07:53 Chloride 97 mmol/L (98-107) L 07/17/17 07:53 Carbon Dioxide 34 mmol/L (22-30) H 07/17/17 07:53 Anion Gap 13 (10-20) 07/17/17 07:53 BUN 52 mg/dL (9-20) H 07/17/17 07:53 Creatinine 1.3 mg/dL (0.8-1.5) 07/17/17 07:53 Est GFR ( Amer) > 60 07/17/17 07:53 Est GFR (Non-Af Amer) 54 07/17/17 07:53 POC Glucose (mg/dL) 96 mg/dL (65-110) 07/16/17 01:44 Random Glucose 88 mg/dL (75-110) 07/17/17 07:53 Calcium 8.3 mg/dl (8.6-10.4) L 07/17/17 07:53 Phosphorus 3.9 mg/dL (2.5-4.5) 07/17/17 07:53 Magnesium 2.0 mg/dL (1.6-2.3) 07/17/17 07:53 Total Bilirubin 0.4 mg/dL (0.2-1.3) 07/17/17 07:53 AST 41 U/L (17-59) 07/17/17 07:53 ALT 34 U/L (21-72) 07/17/17 07:53 Alkaline Phosphatase 56 U/L (38-126) 07/17/17 07:53 Total Creatine Kinase 96 U/L (55-170) 07/16/17 13:26 CK-MB (Mass) 3.68 ng/mL (0.0-3.38) H 07/16/17 13:26 Troponin I 0.0770 ng/mL (0.00-0.120) 07/16/17 13:26 NT-Pro-B Natriuret Pep 7280 pg/mL (0-900) H 07/16/17 02:09 Total Protein 6.1 g/dL (6.3-8.3) L 07/17/17 07:53 Albumin 3.0 g/dL (3.5-5.0) L 07/17/17 07:53 Globulin 3.1 gm/dL (2.2-3.9) 07/17/17 07:53 Albumin/Globulin Ratio 1.0 (1.0-2.1) 07/17/17 07:53 Procalcitonin < 0.05 NG/ML (0.19-0.49) L 07/17/17 11:12 Arterial Blood Potassium 3.5 mmol/L (3.6-5.2) L 07/17/17 10:46 Urine Color Straw (YELLOW) 07/16/17 05:00 Urine Clarity Clear (Clear) 07/16/17 05:00 Urine pH 5.0 (5.0-8.0) 07/16/17 05:00 Ur Specific [place] 1.006 (1.003-1.030) 07/16/17 05:00 Urine Protein 1+ mg/dL (NEGATIVE) H 07/16/17 05:00 Urine Glucose (UA) Normal mg/dL (Normal) 07/16/17 05:00 Urine Ketones Negative mg/dL (NEGATIVE) 07/16/17 05:00 Urine Blood Negative (NEGATIVE) 07/16/17 05:00 Urine Nitrate Negative (NEGATIVE) 07/16/17 05:00 Urine Bilirubin Negative (NEGATIVE) 07/16/17 05:00 Urine Urobilinogen Normal mg/dL (0.2-1.0) 07/16/17 05:00 Ur Leukocyte Esterase Neg Ana/uL (Negative) 07/16/17 05:00 Urine WBC (Auto) 1 /hpf (0-5) 07/16/17 05:00 Urine RBC (Auto) < 1 /hpf (0-3) 07/16/17 05:00 Ur Squamous Epith Cells < 1 /hpf (0-5) 07/16/17 05:00 Digoxin 0.7 ng/mL (0.8-2.0) L 07/16/17 13:26 Influenza Typ A,B (EIA) Negative for flu a/b (NEGATIVE) 07/16/17 02:16 - Hospital Course Hospital Course: 72 year old [place] male with history of hypertension, hypercholesterolemia, COPD , atrial fibrillation, ischemic cardiomyopathy s/p AICD presents to the ED tonight complaining of chest pain and shortness of breath. Patient reports his symptoms have been going for the past few days and the shortness of breath has been getting worse which prompted the patient to come to the ED. Patient received ASA and sublingual nitroglycerin en route to the ED which resolved his chest pain. Patient also report have worsening bilateral lower extremity swelling. Patient cannot walk more than one block without taking a break due to shortness of breath. Patient claims to be compliant with his home medications, however he still smokes cigarettes once in a while. Patient denies fever, chills , headache, abdominal pain, nausea, or vomiting. Patient was diuresed aggressively and his breathing became much less labored. He was comfortable on the day of discharge and instructed to follow up with Dr. Gonzalez in the office on Thursday 07/20 Discharge Exam - Head Exam Head Exam: ATRAUMATIC, NORMAL INSPECTION, NORMOCEPHALIC - Eye Exam Eye Exam: EOMI, Normal appearance, PERRL Pupil Exam: NORMAL ACCOMODATION, PERRL - Respiratory Exam Respiratory Exam: Clear to PA & Lateral, UNREMARKABLE - Cardiovascular Exam Cardiovascular Exam: REGULAR RHYTHM - GI/Abdominal Exam GI & Abdominal Exam: Normal Bowel Sounds - Neurological Exam Neurological exam: Alert, CN II-XII Intact, Normal Gait, Oriented x3, Reflexes Normal - Psychiatric Exam Psychiatric exam: Normal Affect, Normal Mood - Skin Skin Exam: Dry, Intact, Normal Color, Warm Discharge Plan - Follow Up Plan Condition: STABLE Disposition: HOME/ ROUTINE Instructions: Heart Failure, Adult (DC), Insomnia (DC) Additional Instructions: Please follow up with Dr. Gonzalez in the office on Sunday. Please call the office to make an appointment. Please continue taking home medications. Please come back to the ED if symptoms return
--- NOTE | 2017-07-19 18:30 | PQF CHF ---
This form is a permanent part of the medical record Dr. Gonzalez , Please clarify the type of congestive heart failure. Clarification of your documentation is requested to better reflect the severity of illness and intensity of treatment of your patient. Indicators present X] Diagnosis of CHF and/or history of CHF [X] BNP > 200 [] Imaging Finding of Pulmonary Edema /Pleural Effusions [] Fluid/Volume Overload [X] Pitting edema [] Ejection Fraction < 40% (Indicative of Systolic Heart Failure) [] Ejection Fraction > 40% (Indicative of Diastolic Heart Failure) [] Dyspnea / Orthopenea / Paroxysmal Nocturnal Dyspnea [] Other: Location in the medical record that reflects the above clinical findings: [] Treatment Provided: [] PHYSICIAN'S RESPONSE Based on your medical judgment of the clinical indicators outlined above, are you treating this patient for a known or suspected: [] Acute CHF [] Systolic [] Diastolic [] Combined [] Chronic CHF [] Systolic [] Diastolic [] Combined [] Acute on Chronic CHF []Systolic [] Diastolic [] Combined [] CHF due hypertension [] Acute systolic []Chronic systolic [] Acute/ chronic systolic [] Other, please indicate: [] [] If Unable to Determine, please check the box, sign and date. Present On Admission (POA) Indicator: [] Present at the time of admission [] Not present at the time of admission [] Clinically Undetermined In responding to this query, please exercise your independent professional judgment. The fact that a question is asked does not imply that any particular answer is desired or expected. Thank you for your clarification on this documentation. 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
== END 2017-07-18 17:54 | disposition home or self-care (01) | DRG 292 ==
LOC: C.ER 01:32 → C.9E 03:38 → C.5S 11:25
PROVIDERS: ADMIT Internal Medicine; ATTEND Internal Medicine
DX: I11.0 Hypertensive heart disease with heart failure (principal); J44.1 Chronic obstructive pulmonary disease with (acute) exacerbation; I50.33 Acute on chronic diastolic (congestive) heart failure; I73.9 Peripheral vascular disease, unspecified; E78.00 Pure hypercholesterolemia, unspecified; I48.2 Chronic atrial fibrillation; I25.5 Ischemic cardiomyopathy; F17.210 Nicotine dependence, cigarettes, uncomplicated; G47.00 Insomnia, unspecified; I25.10 Atherosclerotic heart disease of native coronary artery without angina pectoris; Z95.810 Presence of automatic (implantable) cardiac defibrillator; Z79.82 Long term (current) use of aspirin

== ENCOUNTER 2017-12-08 16:00 | Inpatient (IN) | payer MEDICARE ==
[2017-12-08 16:00] VITALS: BMI 23.7
[2017-12-08 16:40] LABS: BASO # 0.1 K/uL (0.0-0.2); BASO % 1.3 % (0.0-2.0); EOS # 0.1 K/uL (0.0-0.7); EOS % 2.1 % (0.0-4.0); HEMOGLOBIN 12.3 g/dL (12.0-18.0); LYMPH # 0.9 K/uL (1.0-4.3); LYMPH % 13.8 % (20.0-40.0); MEAN CELL VOLUME 91.2 fL (80.0-94.0); MEAN CORPUSCULAR HEMOGLOBIN 30.4 pg (27.0-31.0); MEAN CORPUSCULAR HGB CONC 33.4 g/dL (33.0-37.0); MEAN PLATELET VOLUME 9.4 fL (7.2-11.7); MONO # 0.9 K/uL (0.0-0.8); MONO % 13.2 % (0.0-10.0); NEUT # 4.7 K/uL (1.8-7.0); NEUT % 69.6 % (50.0-75.0); RBC 4.03 Mil/uL (4.40-5.90); RED CELL DISTRIBUTION WIDTH 14.3 % (11.5-14.5); WHITE BLOOD COUNT 6.7 K/uL (4.8-10.8)
[2017-12-08 16:49] LABS: INR 1.1; PROTHROMBIN TIME 11.9 SECONDS (9.7-12.2)
[2017-12-08 16:59] LABS: BLOOD UREA NITROGEN 36 mg/dL (9-20); CALCIUM 8.3 mg/dl (8.6-10.4); GFR NON-AFRICAN AMERICAN > 60
[2017-12-08 17:00] LABS: ALT/SGPT 45 U/L (21-72); AST/SGOT 40 U/L (17-59)
--- NOTE | 2017-12-08 17:02 | RAD ---
Chest x-ray single frontal view History: Shortness of breath. Comparison: 07/17/2017 Findings: Moderate to severe venous congestion. Moderate loculated left and small right pleural effusion. Prominent consolidative opacification in the left mid to lower lung zone and right lung base. Prominent vascularity in the right paratracheal region. Cardiomegaly. Left-sided pacemaker. Degenerative changes in the spine and shoulders. Impression: Moderate to severe venous congestion. Moderate loculated left and small right pleural effusion. Prominent consolidative opacification in the left mid to lower lung zone and right lung base. Prominent vascularity in the right paratracheal region. Cardiomegaly. Left-sided pacemaker.
[2017-12-08] MEDS ORDERED: Iohexol 240 (50 ml) PO ONE (17:08)
[2017-12-08] MEDS ORDERED: Iohexol 240 (50 ml) ONE (17:12)
--- NOTE | 2017-12-08 18:11 | C.PDOC ---
History Of Present Illness Patient BIBA for evaluation of left sided chest pain for the past 2-3 days, intermittent and nonradiating. He was given ASA 324mg and SL nitro x2 in the field. He is also c/o worsening SOB, leg edema and orthopnea for the same amount of time. Patient also states he has left groin pain, has had a chronic hernia in the area but states the pain and swelling have worsened. PMHx of Atrial fibrillation, CAD, PPM, CHF, COPD, HTN PMD Dr. Gonzalez Time Seen by Provider: 12/08/17 16:07 Chief Complaint (Nursing): Chest Pain History Per: Patient, Family ( at bedside ) History/Exam Limitations: no limitations Onset/Duration Of Symptoms: Days (2-3 days) Current Symptoms Are (Timing): Still Present Severity: Moderate Quality: "Pain" Past Medical History Reviewed: Historical Data, Nursing Documentation, Vital Signs Vital Signs: Last Vital Signs Temp 98.9 F 12/08/17 16:17 Pulse 51 L 12/08/17 16:17 Resp 20 12/08/17 16:17 BP 139/72 12/08/17 16:17 Pulse Ox 95 12/08/17 18:17 - Medical History PMH: Atrial Fibrillation, CHF, COPD, Emphysema, HTN Surgical History: Hernia Repair, Pacemaker Family History: States: No Known Family Hx - Social History Hx Alcohol Use: No Hx Substance Use: No - Immunization History Hx Tetanus Toxoid Vaccination: No Hx Influenza Vaccination: No Hx Pneumococcal Vaccination: No Review Of Systems Constitutional: Negative for: Fever, Chills Cardiovascular: Positive for: Chest Pain Respiratory: Positive for: Shortness of Breath, SOB with Excertion. Negative for: Cough Gastrointestinal: Negative for: Nausea, Vomiting, Abdominal Pain, Diarrhea Genitourinary: Positive for: Other (left inguinal pain and swelling ) Skin: Negative for: Rash Physical Exam - Physical Exam Appears: Well, Non-toxic, In Acute Distress (in mild discomfort ) Skin: Normal Color, Warm, Dry Eye(s): bilateral: Normal Inspection Oral Mucosa: Moist Cardiovascular: Rhythm Regular (bradycardic ) Respiratory: No Accessory Muscle Use, Rales (B/L ), No Rhonchi, Wheezing ( scattered, mild ) Gastrointestinal/Abdominal: Normal Exam, Bowel Sounds, Soft, No Tenderness Male Genital: No Testicular Swelling, Inguinal Swelling, Other (left inguinal area swollen and mildly erythematous, (+) TTP) Extremity: Pedal Edema (+2 pitting edema B/L LEs), No Calf Tenderness Pulses: Left Dorsalis Pedis: Normal, Right Dorsalis Pedis: Normal Neurological/Psych: Oriented x3 ED Course And Treatment - Laboratory Results Result Diagrams: 12/08/17 16:36 12/08/17 16:36 ECG: Interpreted By Me, Viewed By Me (ventircular pacing at 66 bpm, left axis deviation, L axis deviation, LBBB morphology, no acute ST changes) ECG Interpretation: Abnormal O2 Sat by Pulse Oximetry: 95 (RA) Pulse Ox Interpretation: Normal - Radiology CXR: Interpreted by Me, Viewed By Me ((+) pulmonary vascular congestion, left chest AICD, no infiltrates) Progress Note: Blood work, CT abd/pelvis with PO contrast, EKG, CXR ordered and reviewed. Patient given IV Lasix 40mg. Disposition - Disposition Disposition Time: 19:00 Condition: STABLE Forms: [employer] (Georgian) - Clinical Impression Clinical Impression: Chest pain, CHF exacerbation, Inguinal hernia, left Physician Patient Turnover Patient Signed Over To: Brendan Clements Handoff Comments: pending CT scan abd/pelvis, admission
--- NOTE | 2017-12-08 20:39 | CP.PCM.HP ---
History of Present Illness - History of Present Illness History of Present Illness: PGY [address] H&P [address] Gonzalez. 72 [place] male w/ PMHx of [place], Afib, PVD, CHF, CAD, ACID, presents to ED w/ shortness of breath & genital swelling. Patient that the symptoms have been ongoing for several years and the SOB is greater on exertion. Patient denies chest pain, constipation, diarrhea, trouble voiding. Patient refused to answer any further questions and was not fully cooperative during the interview. PMD: Dr. Gonzalez PMHx: [place], Afib, PVD, CHF, CAD, ACID Meds: Spironolactone 25mg daily, Lisinopril 5mg daily, Lasix 40 mg Q12, Digoxin 0.125mg daily, Coreg 12.5mg Q12, Lipitor 10 mg daily, Aspirin 81mg daily PSHx: AICD Allergies: NKDA FHx: Refuses to answer Social: denies ETOH, states he quit smoking several years prior Present on Admission - Present on Admission Any Indicators Present on Admission: No Review of Systems - Cardiovascular Cardiovascular: Dyspnea on Exertion, Leg Edema. absent: Chest Pain - Respiratory Respiratory: Dyspnea on Exertion. absent: Pain on Inspiration - Gastrointestinal Gastrointestinal: absent: Abdominal Pain, Constipation, Diarrhea - Genitourinary Genitourinary: absent: Difficulty Urinating Additional comments: Genital swelling Past Patient History - Infectious Disease Hx of Infectious Diseases: None - Past Medical History & Family History Past Medical History?: No - Past Social History Smoking Status: Heavy Smoker > 10 Cigarettes Daily - CARDIAC Hx Atrial Fibrillation: Yes Hx Congestive Heart Failure: Yes Hx Hypertension: Yes Hx Pacemaker: Yes - PULMONARY Hx Chronic Obstructive Pulmonary Disease (COPD): Yes Hx Emphysema: Yes - NEUROLOGICAL Hx Neurological Disorder: No - HEENT Hx HEENT Problems: Yes - RENAL Hx Chronic Kidney Disease: No - ENDOCRINE/METABOLIC Hx Endocrine Disorders: No - HEMATOLOGICAL/ONCOLOGICAL Hx Human Immunodeficiency Virus (HIV): No - INTEGUMENTARY Hx Dermatological Problems: No - MUSCULOSKELETAL/RHEUMATOLOGICAL Hx Musculoskeletal Disorders: No Hx Falls: No - GASTROINTESTINAL Hx Gastrointestinal Disorders: No - GENITOURINARY/GYNECOLOGICAL Hx Genitourinary Disorders: No - PSYCHIATRIC Hx Substance Use: No - SURGICAL HISTORY Hx Surgeries: Yes Hx Herniorrhaphy: Yes Other/Comment: Surgeries: Hernia repair and Pacemaker insertion - ANESTHESIA Hx Anesthesia: Yes Hx Anesthesia Reactions: No Hx Malignant Hyperthermia: No Meds Allergies/Adverse Reactions: Allergies Allergy/AdvReac Type Severity Reaction Status Date / Time No Known Allergies Allergy Verified 07/16/17 01:50 Physical Exam - Head Exam Head Exam: ATRAUMATIC, NORMAL INSPECTION, NORMOCEPHALIC - Eye Exam Eye Exam: EOMI, Normal appearance - ENT Exam ENT Exam: Mucous Membranes Moist Additional comments: Patient refused examination of ears - Respiratory Exam Respiratory Exam: Decreased Breath Sounds, Rales. absent: Clear to Auscultation Bilateral, Rhonchi, Wheezes, NORMAL BREATHING PATTERN Additional comments: Rale B/L lower lobes - Cardiovascular Exam Cardiovascular Exam: +S1, +S2. absent: Irregular Rhythm, Systolic Murmur - GI/Abdominal Exam GI & Abdominal Exam: Normal Bowel Sounds, Soft. absent: Firm, Guarding, Hernia - Extremities Exam Extremities exam: Positive for: pedal edema, pedal pulses present. Negative for : calf tenderness, tenderness Additional comments: 1+ pedal edema - Back Exam Back exam: absent: CVA tenderness (L), CVA tenderness (R) - Neurological Exam Neurological exam: Alert, CN II-XII Intact, Oriented x3 - Psychiatric Exam Psychiatric exam: Agitated - Skin Skin Exam: Dry, Intact, Normal Color, Warm Results - Vital Signs Recent Vital Signs: Last Vital Signs Temp 98.9 F 12/08/17 16:17 Pulse 92 H 12/08/17 19:39 Resp 22 12/08/17 19:39 BP 159/91 H 12/08/17 19:39 Pulse Ox 96 12/08/17 19:39 - Labs Result Diagrams: 12/08/17 16:36 12/08/17 16:36 Labs: Laboratory Results - last 24 hr 12/08/17 12/08/17 12/08/17 16:36 16:36 16:36 WBC 6.7 D RBC 4.03 L Hgb 12.3 Hct 36.7 MCV 91.2 MCH 30.4 MCHC 33.4 RDW 14.3 Plt Count 173 MPV 9.4 Neut % (Auto) 69.6 Lymph % (Auto) 13.8 L [place] % (Auto) 13.2 H Eos % (Auto) 2.1 Baso % (Auto) 1.3 Neut # (Auto) 4.7 Lymph # (Auto) 0.9 L [place] # (Auto) 0.9 H Eos # (Auto) 0.1 Baso # (Auto) 0.1 PT 11.9 INR 1.1 APTT 30 Sodium 142 Potassium 4.8 Chloride 103 Carbon Dioxide 34 H Anion Gap 11 BUN 36 H Creatinine 1.0 Est GFR ( Amer) > 60 Est GFR (Non-Af Amer) > 60 Random Glucose 96 Calcium 8.3 L Total Bilirubin 0.5 AST 40 ALT 45 Alkaline Phosphatase 66 Troponin I 0.0880 NT-Pro-B Natriuret Pep Total Protein 6.1 L Albumin 3.0 L Globulin 3.1 Albumin/Globulin Ratio 1.0 Digoxin 12/08/17 12/08/17 16:36 18:38 WBC RBC Hgb Hct MCV MCH MCHC RDW Plt Count MPV Neut % (Auto) Lymph % (Auto) [place] % (Auto) Eos % (Auto) Baso % (Auto) Neut # (Auto) Lymph # (Auto) [place] # (Auto) Eos # (Auto) Baso # (Auto) PT INR APTT Sodium Potassium Chloride Carbon Dioxide Anion Gap BUN Creatinine Est GFR ( Amer) Est GFR (Non-Af Amer) Random Glucose Calcium Total Bilirubin AST ALT Alkaline Phosphatase Troponin I NT-Pro-B Natriuret Pep 6140 H Total Protein Albumin Globulin Albumin/Globulin Ratio Digoxin 0.9 Assessment & Plan - Assessment and Plan (Free Text) Assessment: 72 [place] male w/ PMHx of [place], Afib, PVD, CHF, CAD, ACID, presents to ED w/ shortness of breath & genital swellin) CHF exacerbation - BNP: 6140, Trops 0.0880 - CXR: Moderate to severe venous congestion. Moderate loculated left and small right pleural effusion. Prominent consolidative opacification in the left mid to lower lung zone and right lung base. Prominent vascularity in the right paratracheal region. Cardiomegaly. Left-sided pacemaker - F/u Echo - F/u trops & EKG @ 10pm & 4am - F/u BNP in AM - strict I/O's - head of bed @ 45 degree - Lasix 40mg IV BID - C/w home mediation: spironolactone 25mg PO daily 2) Scrotal swelling - likely 2/2 inguinal hernia - F/u Vascular recs 3) hx of Atrial Fibrillation -c/w home medications: Digoxin 0.125mg PO daily ASA 81mg PO daily coreg 12.5 mg PO daily -f/u digoxin levels 4) HTN -c/w home medications: coreg 12.5 mg PO daily lisinopril 5mg PO daily 5) CAD -c/w home medications: Crestor 5 mg PO daily ASA 81mg PO daily 6) Prophylactic measures - DVT prophylaxis: heparin 5000 U
--- NOTE | 2017-12-08 22:11 | CP.PCM.CON ---
History of Present Illness - History of Present Illness History of Present Illness: General surgery consult note for Dr. Monet Hernandez, PGY-2 Pt S & E at bedside at 2140. [place] interpretation used with [employer] voice only. 72M w/PMH sig for multiple co-morbidities consulted for left inguinal hernia x 1 yr. Pt reports that he has noted enlargening left hernia for past year, now causing him some pain and mild, occasional constipation. Denies changes in eating habits, N & V. Pt then refused to answer any more questions with repeated attempts to communicate via court interpreter. Unable to obtain further ROS due to non compliance. 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 absent: Diarrhea, Nausea, Vomiting Past Patient History - Infectious Disease Hx of Infectious Diseases: None - Past Medical History & Family History Past Medical History?: No - Past Social History Smoking Status: Heavy Smoker > 10 Cigarettes Daily - CARDIAC Hx Atrial Fibrillation: Yes Hx Congestive Heart Failure: Yes Hx Hypertension: Yes Hx Pacemaker: Yes - PULMONARY Hx Chronic Obstructive Pulmonary Disease (COPD): Yes Hx Emphysema: Yes - NEUROLOGICAL Hx Neurological Disorder: No - HEENT Hx HEENT Problems: Yes - RENAL Hx Chronic Kidney Disease: No - ENDOCRINE/METABOLIC Hx Endocrine Disorders: No - HEMATOLOGICAL/ONCOLOGICAL Hx Human Immunodeficiency Virus (HIV): No - INTEGUMENTARY Hx Dermatological Problems: No - MUSCULOSKELETAL/RHEUMATOLOGICAL Hx Musculoskeletal Disorders: No Hx Falls: No - GASTROINTESTINAL Hx Gastrointestinal Disorders: No - GENITOURINARY/GYNECOLOGICAL Hx Genitourinary Disorders: No - PSYCHIATRIC Hx Substance Use: No - SURGICAL HISTORY Hx Surgeries: Yes Hx Herniorrhaphy: Yes Other/Comment: Surgeries: Hernia repair and Pacemaker insertion - ANESTHESIA Hx Anesthesia: Yes Hx Anesthesia Reactions: No Hx Malignant Hyperthermia: No Meds Allergies/Adverse Reactions: Allergies Allergy/AdvReac Type Severity Reaction Status Date / Time No Known Allergies Allergy Verified 07/16/17 01:50 - Medications Medications: Current Medications Acetaminophen (Tylenol 325mg Tab) 650 mg PO Q6 PRN PRN Reason: Pain, Mild (1-3) Aspirin (Ecotrin) 81 mg PO DAILY [facility] Carvedilol (Coreg) 12.5 mg PO BID [facility] Digoxin (Digoxin) 0.125 mg PO DAILY [facility] Furosemide (Lasix) 40 mg IVP Q12 [facility] Last Admin: 12/08/17 21:59 Dose: 40 mg Heparin Sodium (Porcine) (Heparin) 5,000 units SC Q12 [facility] Last Admin: 12/08/17 21:20 Dose: Not Given Lisinopril (Zestril) 5 mg PO DAILY [facility] Rosuvastatin Calcium (Crestor) 5 mg PO HS [facility] Last Admin: 12/08/17 21:59 Dose: 5 mg Spironolactone (Aldactone) 25 mg PO DAILY [facility] Physical Exam - Constitutional Appears: Non-toxic, No Acute Distress - Head Exam Head Exam: ATRAUMATIC, NORMAL INSPECTION, NORMOCEPHALIC - Eye Exam Eye Exam: EOMI, Normal appearance - ENT Exam ENT Exam: Mucous Membranes Moist, Normal Exam - Neck Exam Neck exam: Positive for: Full Rom, Normal Inspection - Respiratory Exam Respiratory Exam: NORMAL BREATHING PATTERN Additional comments: AICD noted over left chest wall - Cardiovascular Exam Cardiovascular Exam: REGULAR RHYTHM, +S1, +S2 - GI/Abdominal Exam GI & Abdominal Exam: Hernia (large left hernia in left scrotal sac with audible bowel sounds, tender to palpation, able to palpate testes, not reducible), Soft. absent: Distended - Extremities Exam Extremities exam: Positive for: pedal edema (bilateral) - Neurological Exam Neurological exam: Alert, CN II-XII Intact, Oriented x3 - Psychiatric Exam Psychiatric exam: Normal Affect, Normal Mood Additional comments: uncooperative, irritated by questioning - Skin Skin Exam: Dry, Intact, Normal Color, Warm Results - Vital Signs Recent Vital Signs: Last Vital Signs Temp 97.9 F 12/08/17 21:53 Pulse 74 12/08/17 21:53 Resp 18 12/08/17 21:53 BP 159/87 H 12/08/17 21:59 Pulse Ox 95 12/08/17 21:53 - Labs Result Diagrams: 12/08/17 16:36 12/08/17 16:36 Labs: Laboratory Results - last 24 hr 12/08/17 12/08/17 12/08/17 16:36 16:36 16:36 WBC 6.7 D RBC 4.03 L Hgb 12.3 Hct 36.7 MCV 91.2 MCH 30.4 MCHC 33.4 RDW 14.3 Plt Count 173 MPV 9.4 Neut % (Auto) 69.6 Lymph % (Auto) 13.8 L [place] % (Auto) 13.2 H Eos % (Auto) 2.1 Baso % (Auto) 1.3 Neut # (Auto) 4.7 Lymph # (Auto) 0.9 L [place] # (Auto) 0.9 H Eos # (Auto) 0.1 Baso # (Auto) 0.1 PT 11.9 INR 1.1 APTT 30 Sodium 142 Potassium 4.8 Chloride 103 Carbon Dioxide 34 H Anion Gap 11 BUN 36 H Creatinine 1.0 Est GFR ( Amer) > 60 Est GFR (Non-Af Amer) > 60 Random Glucose 96 Calcium 8.3 L Total Bilirubin 0.5 AST 40 ALT 45 Alkaline Phosphatase 66 Troponin I 0.0880 NT-Pro-B Natriuret Pep Total Protein 6.1 L Albumin 3.0 L Globulin 3.1 Albumin/Globulin Ratio 1.0 Digoxin 12/08/17 12/08/17 16:36 18:38 WBC RBC Hgb Hct MCV MCH MCHC RDW Plt Count MPV Neut % (Auto) Lymph % (Auto) [place] % (Auto) Eos % (Auto) Baso % (Auto) Neut # (Auto) Lymph # (Auto) [place] # (Auto) Eos # (Auto) Baso # (Auto) PT INR APTT Sodium Potassium Chloride Carbon Dioxide Anion Gap BUN Creatinine Est GFR ( Amer) Est GFR (Non-Af Amer) Random Glucose Calcium Total Bilirubin AST ALT Alkaline Phosphatase Troponin I NT-Pro-B Natriuret Pep 6140 H Total Protein Albumin Globulin Albumin/Globulin Ratio Digoxin 0.9 Assessment & Plan - Assessment and Plan (Free Text) Assessment: 72M w/left inguinal hernia containing small and large bowel without signs of incarceration or obstruction Plan: Pt will need cardiac evaluation/clearance Pain control Monitor bowel function Further recs pending attending evaluation Will DW Dr. Ruddy Hernandez, PGY-2 - Date & Time Date: 12/08/17 Time: 22:09
[2017-12-08 23:03] LABS: CK-MB 3.67 ng/mL (0.0-3.38); TROPONIN I 0.091 ng/mL (0.00-0.120)
[2017-12-09 08:02] LABS: BASO # 0.1 K/uL (0.0-0.2); BASO % 1.1 % (0.0-2.0); EOS # 0.2 K/uL (0.0-0.7); EOS % 2.6 % (0.0-4.0); HEMOGLOBIN 13.1 g/dL (12.0-18.0); LYMPH # 0.9 K/uL (1.0-4.3); LYMPH % 12.9 % (20.0-40.0); MEAN CELL VOLUME 90.2 fL (80.0-94.0); MEAN CORPUSCULAR HEMOGLOBIN 29.9 pg (27.0-31.0); MEAN CORPUSCULAR HGB CONC 33.2 g/dL (33.0-37.0); MEAN PLATELET VOLUME 9.6 fL (7.2-11.7); MONO # 0.9 K/uL (0.0-0.8); MONO % 12.6 % (0.0-10.0); NEUT # 4.9 K/uL (1.8-7.0); NEUT % 70.8 % (50.0-75.0); NRBC % 0.1 % (0.0-2.0); RBC 4.37 Mil/uL (4.40-5.90); WHITE BLOOD COUNT 6.9 K/uL (4.8-10.8)
[2017-12-09 08:16] LABS: ALBUMIN 3.2 g/dL (3.5-5.0); ALT/SGPT 43 U/L (21-72); AST/SGOT 41 U/L (17-59); BLOOD UREA NITROGEN 31 mg/dL (9-20); CALCIUM 8.8 mg/dl (8.6-10.4); GFR NON-AFRICAN AMERICAN > 60; HDL CHOLESTEROL 42 mg/dL (30-70)
[2017-12-09 08:20] LABS: B-TYPE NATRIURETIC PEPTIDE 7320 pg/mL (0-900)
[2017-12-09 08:22] LABS: CK-MB 3.18 ng/mL (0.0-3.38); TROPONIN I 0.093 ng/mL (0.00-0.120)
[2017-12-09 08:26] LABS: LDL CHOLESTEROL 79 mg/dL (0-129)
[2017-12-09] MEDS ORDERED: Digoxin 125 mcg (0.125 mg) Tab PO SCH (10:00)
--- NOTE | 2017-12-09 10:28 | CT ---
Date of service: 12/08/2017 PROCEDURE: CT Abdomen and Pelvis without intravenous contrast HISTORY: LEFT INGUINAL HERNIA R/O INCARCERATION COMPARISON: None. TECHNIQUE: Multiple contiguous axial images were performed through the abdomen and pelvis without the use of intravenous contrast. Subsequently, sagittal and coronal reformatted images were obtained. Radiation dose: Total exam DLP = 385 mGy-cm. This CT exam was performed using one or more of the following dose reduction techniques: Automated exposure control, adjustment of the mA and/or kV according to patient size, and/or use of iterative reconstruction technique. FINDINGS: LOWER THORAX: Cardiomegaly. Vascular calcifications including coronary artery calcification. Small pleural effusions. Atelectasis at the lung bases. Focal areas of consolidative changes in both lungs. LIVER: Unremarkable. No gross lesion or ductal dilatation. GALLBLADDER AND BILE DUCTS: Unremarkable. PANCREAS: Unremarkable. No gross lesion or ductal dilatation. SPLEEN: Unremarkable. ADRENALS: Unremarkable. No mass. KIDNEYS AND URETERS: Low-attenuation lesion in the lower pole of the right kidney measuring 2.4 centimeters demonstrating a Hounsfield unit attenuation of 16, indeterminate. Correlation with multiphasic CT or MR may be helpful if clinically indicated. 2.6 centimeter low-attenuation lesion in the lower pole of the left kidney demonstrating a Hounsfield unit attenuation of 9 suggestive for a cyst. VASCULATURE: Calcification and plaque within aorta. BOWEL: Unremarkable. No obstruction. No gross mural thickening. APPENDIX: No findings to suggest acute appendicitis. PERITONEUM: Unremarkable. No free fluid. No free air. LYMPH NODES: Shotty para-aortic and inguinal lymph nodes. BLADDER: Unremarkable. REPRODUCTIVE: Unremarkable. BONES: Degenerative changes in the spine. Osteopenia. Fusion of the sacroiliac joints. Ankylosis of the spine. Possible ankylosing spondylitis. OTHER FINDINGS: Pacemaker device in place. Left inguinal hernia which contains small and large bowel without signs of incarceration or obstruction. IMPRESSION: Left inguinal hernia identified which contains small and large bowel without signs of incarceration or obstruction. Additional findings as above. These findings were preliminarily reported at 7:47 p.m. on 12/08/[address] Tyree Love from [employer].
--- NOTE | 2017-12-09 10:53 | CP.PCM.PN ---
Subjective - Date & Time of Evaluation Date of Evaluation: 12/09/17 Time of Evaluation: 10:45 - Subjective Subjective: PGY-1 Medicine Progress Note for Dr. Gonzalez Patient was seen and examined sitting by bedside this AM using audio translation services (Yi, #[id number]). No acute overnight events reported. Patient continues to complain of shortness of breath, particularly when laying down or with exertion. He says he cannot get out of bed and walk much due to becoming increasingly short of breath. Patient says he has had shortness of breath for about two years now but was unable to tell me for how long this current exacerbation episode has lasted. Patient also has an enlarged L hernia for the past year, causing him mild discomfort and some constipation. I spoke to his on the phone this morning as well, who mentioned he has had difficulty urinating the past 4 days. All questions were answered regarding her 's treatment plan. She would like to follow-up with Dr. Gonzalez. No fevers/ chills, headaches, dizziness, chest pain, palpitations, abdominal pain, nausea/ vomiting, dysuria, or changes in stool. Objective - Vital Signs/Intake and Output Vital Signs (last 24 hours): Temp Pulse Resp BP Pulse Ox 98.3 F 111 H 20 146/69 97 12/09/17 08:00 12/09/17 09:48 12/09/17 08:00 12/09/17 09:49 12/09/17 08:00 - Medications Medications: Current Medications Acetaminophen (Tylenol 325mg Tab) 650 mg PO Q6 PRN PRN Reason: Pain, Mild (1-3) Aspirin (Ecotrin) 81 mg PO DAILY [facility] Last Admin: 12/09/17 09:49 Dose: 81 mg Carvedilol (Coreg) 12.5 mg PO BID [facility] Last Admin: 12/09/17 09:49 Dose: 12.5 mg Digoxin (Digoxin) 0.125 mg PO DAILY@1800 [facility] Furosemide (Lasix) 40 mg IVP Q12 [facility] Last Admin: 12/09/17 09:49 Dose: 40 mg Heparin Sodium (Porcine) (Heparin) 5,000 units SC Q12 [facility] Last Admin: 12/09/17 09:49 Dose: 5,000 units Lisinopril (Zestril) 5 mg PO DAILY [facility] Last Admin: 09/09/18 09:50 Dose: 5 mg Rosuvastatin Calcium (Crestor) 5 mg PO HS [facility] Last Admin: 12/08/17 21:59 Dose: 5 mg Spironolactone (Aldactone) 25 mg PO DAILY [facility] Last Admin: 12/09/17 09:48 Dose: 25 mg - Labs Labs: 12/09/17 07:46 12/09/17 07:49 PT 11.9 SECONDS (9.7-12.2) 12/08/17 16:36 INR 1.1 12/08/17 16:36 APTT 30 SECONDS (21-34) 12/08/17 16:36 - Constitutional Appears: Non-toxic, No Acute Distress - Head Exam Head Exam: ATRAUMATIC, NORMAL INSPECTION, NORMOCEPHALIC - Eye Exam Eye Exam: EOMI, Normal appearance - ENT Exam ENT Exam: Mucous Membranes Moist, Normal Exam - Neck Exam Neck Exam: Normal Inspection - Respiratory Exam Respiratory Exam: absent: Rhonchi, Wheezes Additional comments: Poor inspiratory effort. Subcostal retractions noted. AICD noted over left chest wall. - Cardiovascular Exam Cardiovascular Exam: REGULAR RHYTHM, +S1, +S2 - GI/Abdominal Exam GI & Abdominal Exam: Soft, Hernia. absent: Distended, Firm, Guarding, Rigid Additional comments: large left hernia in left scrotal sac with audible bowel sounds, tender to palpation, able to palpate testes, not reducible - Extremities Exam Extremities Exam: Pedal Edema (bilateral) - Back Exam Back Exam: NORMAL INSPECTION - Neurological Exam Neurological Exam: Alert, Awake, Normal Gait, Oriented x3 - Psychiatric Exam Psychiatric exam: Normal Affect, Normal Mood - Skin Skin Exam: Dry, Intact, Normal Color, Warm Assessment and Plan - Assessment and Plan (Free Text) Assessment: 72 yo Yi-speaking M with PMHx of [place], Afib, PVD, CHF, CAD, ACID placement, presenting with worsening shortness of breath & L inguinal hernia without signs of incarceration or obstruction. Plan: 1. Worsening shortness of breath--2/2 CHF exacerbation - BNP: 6140->7320 (12/09) - Trops x 3 negative - CK-MB #1 elevated: 3.67 - CK-MB #2: 3.18 - strict I/Os - continue to keep head of bed elevated @ 45 degrees Imaging: - CXR (12/08): Moderate to severe venous congestion. Moderate loculated left and small right pleural effusion. Prominent consolidative opacification in the left mid to lower lung zone and right lung base. Prominent vascularity in the right paratracheal region. Cardiomegaly. Left-sided pacemaker - F/u Echo Medications: - continue home meds: -spironolactone 25 mg PO daily 2. Scrotal swelling - CT abdomen/pelvis (12/08): L inguinal hernia with no evidence of incarceration or obstruction - f/u Vascular surgery (Dr. Fox) recs - pt will need cardiac eval/clearance - pain control - monitor bowel function - further recs pending attending evaluation 3. Hx of Atrial Fibrillation -continue home medications: -Digoxin 0.125mg PO daily -ASA 81mg PO daily -coreg 12.5 mg PO daily -Digoxin level: 0.9 4. Hx of HTN -continue home meds: -coreg 12.5 mg PO daily -lisinopril 5mg PO daily 5. CAD -c/w home medications: -Crestor 5 mg PO daily -ASA 81mg PO daily 6. PPx, Diet, Disposition - DVT ppx: heparin 5000 Units SC q8 - cardiac heart healthy diet Case discussed with Dr. Carlos Saravia PGY-1
[2017-12-09 12:22] LABS: URINE BACTERIA RARE (<OCC); URINE BILIRUBIN NEGATIVE (NEGATIVE); URINE BLOOD NEGATIVE (NEGATIVE); URINE CLARITY Clear (Clear); URINE COLOR Colorless (YELLOW); URINE GLUCOSE (UA) NORMAL (Normal); URINE LEUKOCYTE ESTERASE NEG Leu/uL (Negative); URINE PROTEIN NEGATIVE (NEGATIVE); URINE UROBILINOGEN NORMAL mg/dL (0.2-1.0)
[2017-12-09] MEDS: Digoxin 125 mcg (0.125 mg) Tab PO SCH (17:36)
--- NOTE | 2017-12-10 07:11 | CP.PCM.PN ---
Subjective - Date & Time of Evaluation Date of Evaluation: 12/10/17 Time of Evaluation: 07:30 - Subjective Subjective: PGY 1 Medicine Progress Note for Dr. Gonzalez Patient seen and examined at bedside. Patient lying in bed no acute events. Patient did have some inguinal pain lilely 2/2 to his long standing inguinal hernia. Patient denies chest pain, abdominal pain, chest pain, shortness of breath, headaches, nausea, vomiting. Objective - Vital Signs/Intake and Output Vital Signs (last 24 hours): Temp Pulse Resp BP Pulse Ox 97.5 F L 69 20 140/75 96 12/09/17 23:34 12/10/17 01:00 12/09/17 23:34 12/09/17 23:34 12/09/17 23:34 - Medications Medications: Current Medications Acetaminophen (Tylenol 325mg Tab) 650 mg PO Q6 PRN PRN Reason: Pain, Mild (1-3) Aspirin (Ecotrin) 81 mg PO DAILY [facility] Last Admin: 12/09/17 09:49 Dose: 81 mg Carvedilol (Coreg) 12.5 mg PO BID [facility] Last Admin: 12/09/17 17:36 Dose: 12.5 mg Digoxin (Digoxin) 0.125 mg PO DAILY@1800 [facility] Last Admin: 12/09/17 17:36 Dose: 0.125 mg Furosemide (Lasix) 40 mg IVP Q12 [facility] Last Admin: 12/09/17 21:27 Dose: 40 mg Heparin Sodium (Porcine) (Heparin) 5,000 units SC Q12 [facility] Last Admin: 12/09/17 21:28 Dose: Not Given Lisinopril (Zestril) 5 mg PO DAILY [facility] Last Admin: 12/09/17 09:50 Dose: 5 mg Rosuvastatin Calcium (Crestor) 5 mg PO HS [facility] Last Admin: 12/09/17 21:27 Dose: 5 mg Spironolactone (Aldactone) 25 mg PO DAILY [facility] Last Admin: 12/09/17 09:48 Dose: 25 mg - Labs Labs: 12/09/17 07:46 12/09/17 07:49 PT 11.9 SECONDS (9.7-12.2) 12/08/17 16:36 INR 1.1 12/08/17 16:36 APTT 30 SECONDS (21-34) 12/08/17 16:36 - Constitutional Appears: Well, Non-toxic, No Acute Distress - Head Exam Head Exam: ATRAUMATIC, NORMAL INSPECTION, NORMOCEPHALIC - Eye Exam Eye Exam: EOMI, Normal appearance - ENT Exam ENT Exam: Mucous Membranes Moist - Respiratory Exam Respiratory Exam: Decreased Breath Sounds. absent: Rales, Wheezes Additional comments: coarse breath sounds - Cardiovascular Exam Cardiovascular Exam: +S1, +S2. absent: Irregular Rhythm, Murmur - GI/Abdominal Exam GI & Abdominal Exam: Soft, Normal Bowel Sounds. absent: Distended, Firm, Guarding, Rigid - Exam Additional comments: - large left inguinal hernia - Neurological Exam Neurological Exam: Alert, Awake, Oriented x3 - Psychiatric Exam Psychiatric exam: Flat Affect, Normal Mood - Skin Skin Exam: Dry, Intact, Normal Color, Warm Assessment and Plan - Assessment and Plan (Free Text) Assessment: 72 yo [place]-speaking M with PMHx of [place], Afib, PVD, CHF, CAD, ACID placement, presenting with worsening shortness of breath & L inguinal hernia without signs of incarceration or obstruction. Plan: 1. Worsening shortness of breath--2/2 CHF exacerbation - BNP: 6140->7320 (12/09); F/u AM 12/11 BNP - Trops x 3 negative - CK-MB #1 elevated: 3.67 - CK-MB #2: 3.18 - strict I/Os - continue to keep head of bed elevated @ 45 degrees Imaging: - CXR (12/08): Moderate to severe venous congestion. Moderate loculated left and small right pleural effusion. Prominent consolidative opacification in the left mid to lower lung zone and right lung base. Prominent vascularity in the right paratracheal region. Cardiomegaly. Left-sided pacemaker - F/u Echo Medications: - continue home meds: -spironolactone 25 mg PO daily 2. Scrotal swelling - CT abdomen/pelvis (12/08): L inguinal hernia with no evidence of incarceration or obstruction - f/u Vascular surgery (Dr. Fox) recs - pt will need cardiac eval/clearance - pain control - monitor bowel function - further recs pending attending evaluation - f/u Cardio (Dr. Maddox) recs (cardiac clearance for surgery) 3. Hx of Atrial Fibrillation -continue home medications: -Digoxin 0.125mg PO daily -ASA 81mg PO daily -coreg 12.5 mg PO daily -No other anticoagulation 2/2 previous GI bleed -Digoxin level: 0.9 4. Hx of HTN -continue home meds: -coreg 12.5 mg PO daily -lisinopril 5mg PO daily 5. CAD -c/w home medications: -Crestor 5 mg PO daily -ASA 81mg PO daily 6. PPx, Diet, Disposition - DVT ppx: heparin 5000 Units SC q8 - cardiac heart healthy diet Case discussed with Dr. Gonzalez PGY1 [place]
[2017-12-10 07:35] LABS: BASO # 0.1 K/uL (0.0-0.2); BASO % 1.1 % (0.0-2.0); EOS # 0.2 K/uL (0.0-0.7); EOS % 2.3 % (0.0-4.0); HEMOGLOBIN 13.6 g/dL (12.0-18.0); LYMPH # 0.9 K/uL (1.0-4.3); LYMPH % 13.3 % (20.0-40.0); MEAN CELL VOLUME 89.8 fL (80.0-94.0); MEAN CORPUSCULAR HEMOGLOBIN 30.5 pg (27.0-31.0); MEAN CORPUSCULAR HGB CONC 33.9 g/dL (33.0-37.0); MEAN PLATELET VOLUME 9.7 fL (7.2-11.7); MONO # 0.9 K/uL (0.0-0.8); MONO % 12.6 % (0.0-10.0); NEUT % 70.7 % (50.0-75.0); RBC 4.47 Mil/uL (4.40-5.90); RED CELL DISTRIBUTION WIDTH 14.3 % (11.5-14.5); WHITE BLOOD COUNT 7.1 K/uL (4.8-10.8)
--- NOTE | 2017-12-10 07:43 | CP.PCM.PN ---
Subjective - Date & Time of Evaluation Date of Evaluation: 12/10/17 Time of Evaluation: 06:15 - Subjective Subjective: Patient seen and examined. No acute events over night. No complaints. Objective - Vital Signs/Intake and Output Vital Signs (last 24 hours): Temp Pulse Resp BP Pulse Ox 97.5 F L 69 20 140/75 96 12/09/17 23:34 12/10/17 01:00 12/09/17 23:34 12/09/17 23:34 12/09/17 23:34 - Medications Medications: Current Medications Acetaminophen (Tylenol 325mg Tab) 650 mg PO Q6 PRN PRN Reason: Pain, Mild (1-3) Aspirin (Ecotrin) 81 mg PO DAILY [facility] Last Admin: 12/09/17 09:49 Dose: 81 mg Carvedilol (Coreg) 12.5 mg PO BID [facility] Last Admin: 12/09/17 17:36 Dose: 12.5 mg Digoxin (Digoxin) 0.125 mg PO DAILY@1800 [facility] Last Admin: 12/09/17 17:36 Dose: 0.125 mg Furosemide (Lasix) 40 mg IVP Q12 [facility] Last Admin: 12/09/17 21:27 Dose: 40 mg Heparin Sodium (Porcine) (Heparin) 5,000 units SC Q12 [facility] Last Admin: 12/09/17 21:28 Dose: Not Given Lisinopril (Zestril) 5 mg PO DAILY [facility] Last Admin: 12/09/17 09:50 Dose: 5 mg Rosuvastatin Calcium (Crestor) 5 mg PO HS [facility] Last Admin: 12/09/17 21:27 Dose: 5 mg Spironolactone (Aldactone) 25 mg PO DAILY [facility] Last Admin: 12/09/17 09:48 Dose: 25 mg - Labs Labs: 12/10/17 07:24 12/09/17 07:49 PT 11.9 SECONDS (9.7-12.2) 12/08/17 16:36 INR 1.1 12/08/17 16:36 APTT 30 SECONDS (21-34) 12/08/17 16:36 - Constitutional Appears: No Acute Distress - Head Exam Head Exam: NORMOCEPHALIC - Eye Exam Eye Exam: Normal appearance - ENT Exam ENT Exam: Mucous Membranes Moist - Respiratory Exam Respiratory Exam: NORMAL BREATHING PATTERN - Cardiovascular Exam Cardiovascular Exam: +S1, +S2 - GI/Abdominal Exam GI & Abdominal Exam: Soft Additional comments: +left inguinal hernia - Neurological Exam Neurological Exam: Alert, Awake, Oriented x3 - Psychiatric Exam Psychiatric exam: Normal Mood - Skin Skin Exam: Dry, Intact, Warm Assessment and Plan - Assessment and Plan (Free Text) Assessment: 72M with left inguinal hernia, reducible Plan: -Pending cardiac clearance -Plan for OR once cleared -Plan for left inguinal hernia repair with mesh placement -Further recs per Dr. Ruddy Breen PGY3
[2017-12-10 08:23] LABS: ALB/GLOB RATIO 0.9 (1.0-2.1); ALBUMIN 3.2 g/dL (3.5-5.0); ALT/SGPT 37 U/L (21-72); AST/SGOT 31 U/L (17-59); BLOOD UREA NITROGEN 33 mg/dL (9-20); CALCIUM 8.6 mg/dl (8.6-10.4); GFR NON-AFRICAN AMERICAN > 60
[2017-12-10] MEDS: Digoxin 125 mcg (0.125 mg) Tab PO SCH (17:16)
--- NOTE | 2017-12-10 17:34 | CP.PCM.CON ---
<Joaquín Gunter E - Last Filed: 12/10/17 17:47> History of Present Illness - History of Present Illness History of Present Illness: Cardiology consult note ( Dr. Maddox's service) HPI: 72 [place] male w/ PMHx of AL, Afib, PVD, CHF, CAD, ACID, who presents to ED w/ shortness of breath & genital swelling, admitted with the diagnosis of CHF exacerbation. Patient states that upon presentation, he had shortness of breath and intermittent left-sided chest pain that is non-radiating. Patient noted that he has been unable to walk 1 block without being short of breath for the past few months. Upon admission, patient was noted to have a left nguinal hernia that causes mild discomfort but reducible. Cardiology consult was placed for cardiac clearance for surgery. During the consultation, patient admits to mild shortness of breath especially with ambulation. During the encounter, patient was very vague and non-cooperative about his symptoms or other past medical history. PMD: Dr. Gonzalez PMHx: AL, Afib, PVD, CHF, CAD, ACID PSHx: AICD FHx: Refuses to answer or unknown Meds: Spironolactone 25mg daily, Lisinopril 5mg daily, Lasix 40 mg Q12, Digoxin 0.125mg daily, Coreg 12.5mg Q12, Lipitor 10 mg daily, Aspirin 81mg daily Allergies: NKDA Social: denies ETOH, states he quit smoking several years prior Review of Systems - Constitutional Constitutional: Fatigue. absent: Chills, Fever, Headache, Weakness - EENT Eyes: absent: Blurred Vision, Change in Vision Ears: absent: Dizziness - Cardiovascular Cardiovascular: Chest Pain, Chest Pain with Activity, Dyspnea. absent: Diaphoresis, Lightheadedness, Orthopnea, Palpitations - Respiratory Respiratory: Dyspnea - Gastrointestinal Gastrointestinal: absent: Abdominal Pain, Nausea, Vomiting - Psychiatric Psychiatric: Mood Swings Past Patient History - Infectious Disease Hx of Infectious Diseases: None - Past Medical History & Family History Past Medical History?: No - Past Social History Smoking Status: Heavy Smoker > 10 Cigarettes Daily - CARDIAC Hx Atrial Fibrillation: Yes Hx Congestive Heart Failure: Yes Hx Hypertension: Yes Hx Pacemaker: Yes - PULMONARY Hx Chronic Obstructive Pulmonary Disease (COPD): Yes Hx Emphysema: Yes - NEUROLOGICAL Hx Neurological Disorder: No - HEENT Hx HEENT Problems: Yes - RENAL Hx Chronic Kidney Disease: No - ENDOCRINE/METABOLIC Hx Endocrine Disorders: No - HEMATOLOGICAL/ONCOLOGICAL Hx Human Immunodeficiency Virus (HIV): No - INTEGUMENTARY Hx Dermatological Problems: No - MUSCULOSKELETAL/RHEUMATOLOGICAL Hx Musculoskeletal Disorders: No Hx Falls: No - GASTROINTESTINAL Hx Gastrointestinal Disorders: No - GENITOURINARY/GYNECOLOGICAL Hx Genitourinary Disorders: No - PSYCHIATRIC Hx Substance Use: No - SURGICAL HISTORY Hx Surgeries: Yes Hx Herniorrhaphy: Yes Other/Comment: Surgeries: Hernia repair and Pacemaker insertion - ANESTHESIA Hx Anesthesia: Yes Hx Anesthesia Reactions: No Hx Malignant Hyperthermia: No Meds Allergies/Adverse Reactions: Allergies Allergy/AdvReac Type Severity Reaction Status Date / Time No Known Allergies Allergy Verified 07/16/17 01:50 - Medications Medications: Current Medications Acetaminophen (Tylenol 325mg Tab) 650 mg PO Q6 PRN PRN Reason: Pain, Mild (1-3) Aspirin (Ecotrin) 81 mg PO DAILY [facility] Last Admin: 12/10/17 09:18 Dose: 81 mg Carvedilol (Coreg) 12.5 mg PO BID [facility] Last Admin: 12/10/17 14:04 Dose: 12.5 mg Digoxin (Digoxin) 0.125 mg PO DAILY@1800 [facility] Last Admin: 12/10/17 17:16 Dose: 0.125 mg Furosemide (Lasix) 40 mg IVP Q12 [facility] Last Admin: 12/10/17 14:04 Dose: 40 mg Heparin Sodium (Porcine) (Heparin) 5,000 units SC Q12 [facility] Last Admin: 12/10/17 09:18 Dose: 5,000 units Lisinopril (Zestril) 5 mg PO DAILY [facility] [place] Last Admin: 12/10/17 10:55 Dose: Not Given Rosuvastatin Calcium (Crestor) 5 mg PO HS [facility] Last Admin: 12/09/17 21:27 Dose: 5 mg Spironolactone (Aldactone) 25 mg PO DAILY [facility] Last Admin: 12/10/17 09:20 Dose: 25 mg Physical Exam - Constitutional Appears: No Acute Distress - Head Exam Head Exam: ATRAUMATIC, NORMAL INSPECTION - Eye Exam Eye Exam: EOMI, Normal appearance - ENT Exam ENT Exam: Mucous Membranes Moist - Respiratory Exam Respiratory Exam: Clear to Auscultation Bilateral, NORMAL BREATHING PATTERN. absent: Rales, Rhonchi, Wheezes - Cardiovascular Exam Cardiovascular Exam: REGULAR RHYTHM, +S1, +S2 - GI/Abdominal Exam GI & Abdominal Exam: Normal Bowel Sounds, Soft - Exam Additional comments: Left inguinal hernia - Extremities Exam Extremities exam: Positive for: normal inspection. Negative for: calf tenderness, pedal edema - Neurological Exam Neurological exam: Alert, Oriented x3 - Psychiatric Exam Psychiatric exam: Agitated Results - Vital Signs Recent Vital Signs: Last Vital Signs Temp 97.4 F L 12/10/17 15:43 Pulse 61 12/10/17 15:57 Resp 18 12/10/17 15:43 BP 119/71 12/10/17 15:43 Pulse Ox 99 12/10/17 15:43 - Labs Result Diagrams: 12/10/17 07:24 12/10/17 07:24 Labs: Laboratory Results - last 24 hr 12/10/17 12/10/17 07:24 07:24 WBC 7.1 RBC 4.47 Hgb 13.6 Hct 40.1 MCV 89.8 MCH 30.5 MCHC 33.9 RDW 14.3 Plt Count 186 MPV 9.7 Neut % (Auto) 70.7 Lymph % (Auto) 13.3 L Taliaferro % (Auto) 12.6 H Eos % (Auto) 2.3 Baso % (Auto) 1.1 Neut # (Auto) 5.0 Lymph # (Auto) 0.9 L Taliaferro # (Auto) 0.9 H Eos # (Auto) 0.2 Baso # (Auto) 0.1 Sodium 140 Potassium 4.5 Chloride 95 L Carbon Dioxide 39 H Anion Gap 10 BUN 33 H Creatinine 1.0 Est GFR ( Amer) > 60 Est GFR (Non-Af Amer) > 60 Random Glucose 87 Calcium 8.6 Phosphorus 3.5 Magnesium 2.0 Total Bilirubin 0.7 AST 31 ALT 37 Alkaline Phosphatase 68 Total Protein 6.5 Albumin 3.2 L Globulin 3.4 Albumin/Globulin Ratio 0.9 L Assessment & Plan (1) CHF exacerbation Assessment and Plan: On admission: BNP (6140--->7320 Echo (2017): LV is moderately dilated. Normal left ventricular wall thickness. LV systolic function is severely impaired. EF (10-15%). LA is moderately dilated. Mild triscuspid regurgitation. Moderate pulmonary hypertension F/u repeat ECHO Lasix 40mg IV Q12H Spironolactone 25mg PO daily Status: Acute (2) Chest pain Assessment and Plan: Lipid panel: -TGL:63, Chol:137, LDL: 79 and HDL: 42 - TSH 3RD generation: 1.32, WNL - HgbA1C: 6.[address] changes on EKG Plans for Lexiscan stress test tomorrow Status: Acute Priority: High (3) History of coronary artery disease Assessment and Plan: ASA 81mg PO daily Coreg 12.5mg PO BID Crestor 5mg PO HS Status: Acute (4) Chronic atrial fibrillation Assessment and Plan: Digoxin 0.125mg PO daily Status: Acute (5) Prophylactic measure Assessment and Plan: DVT: Heparin 5,000 units Q12 Plans for lexiscan stress test tomorrow All plans and management discussed with Dr. Maddox and NPO past midnight Status: Acute <Corey Maddox - Last Filed: 12/10/17 22:07> Meds - Medications Medications: Current Medications Acetaminophen (Tylenol 325mg Tab) 650 mg PO Q6 PRN PRN Reason: Pain, Mild (1-3) Aspirin (Ecotrin) 81 mg PO DAILY [facility] Last Admin: 12/10/17 09:18 Dose: 81 mg Carvedilol (Coreg) 12.5 mg PO BID [facility] [place] Last Admin: 12/10/17 21:40 Dose: 12.5 mg Digoxin (Digoxin) 0.125 mg PO DAILY@1800 [facility] Last Admin: 12/10/17 17:16 Dose: 0.125 mg Furosemide (Lasix) 40 mg IVP Q12 [facility] Last Admin: 12/10/17 21:39 Dose: 40 mg Heparin Sodium (Porcine) (Heparin) 5,000 units SC Q12 [facility] Last Admin: 12/10/17 21:35 Dose: 5,000 units Lisinopril (Zestril) 5 mg PO DAILY [facility] [place] Last Admin: 12/10/17 10:55 Dose: Not Given Rosuvastatin Calcium (Crestor) 5 mg PO HS [facility] [place] Last Admin: 12/10/17 21:34 Dose: 5 mg Spironolactone (Aldactone) 25 mg PO DAILY [facility] Last Admin: 12/10/17 09:20 Dose: 25 mg Results - Vital Signs Recent Vital Signs: Last Vital Signs Temp 97.4 F L 12/10/17 15:43 Pulse 61 12/10/17 15:57 Resp 18 12/10/17 15:43 BP 118/73 12/10/17 21:40 Pulse Ox 99 12/10/17 15:43 - Labs Result Diagrams: 12/10/17 07:24 12/10/17 07:24 Labs: Laboratory Results - last 24 hr 12/10/17 12/10/17 07:24 07:24 WBC 7.1 RBC 4.47 Hgb 13.6 Hct 40.1 MCV 89.8 MCH 30.5 MCHC 33.9 RDW 14.3 Plt Count 186 MPV 9.7 Neut % (Auto) 70.7 Lymph % (Auto) 13.3 L Taliaferro % (Auto) 12.6 H Eos % (Auto) 2.3 Baso % (Auto) 1.1 Neut # (Auto) 5.0 Lymph # (Auto) 0.9 L Taliaferro # (Auto) 0.9 H Eos # (Auto) 0.2 Baso # (Auto) 0.1 Sodium 140 Potassium 4.5 Chloride 95 L Carbon Dioxide 39 H Anion Gap 10 BUN 33 H Creatinine 1.0 Est GFR ( Amer) > 60 Est GFR (Non-Af Amer) > 60 Random Glucose 87 Calcium 8.6 Phosphorus 3.5 Magnesium 2.0 Total Bilirubin 0.7 AST 31 ALT 37 Alkaline Phosphatase 68 Total Protein 6.5 Albumin 3.2 L Globulin 3.4 Albumin/Globulin Ratio 0.9 L Assessment & Plan - Assessment and Plan (Free Text) Assessment: Patient seen and evaluated personally by nv Plan of care d/w the resident and as documented
--- NOTE | 2017-12-11 06:23 | CP.PCM.PN ---
Subjective - Date & Time of Evaluation Date of Evaluation: 12/11/17 Time of Evaluation: 07:30 - Subjective Subjective: PGY 1 Medicine Progress Note for Dr. Gonzalez Patient seen and examined at bedside. Patient lying in bed sleeping, in no acute distress. Patient reports no overnight events. Patient denies chest pain, abdominal pain, chest pain, shortness of breath, headaches, nausea, vomiting. Patient states he is able to pass bowel movements and is not currently constipated. Patient has some abdominal pain 2/2 to his inguinal hernia. Patient scheduled for nuclear stress test with cardio today. Objective - Vital Signs/Intake and Output Vital Signs (last 24 hours): Temp Pulse Resp BP Pulse Ox 98.1 F 60 20 129/80 95 12/11/17 00:00 12/11/17 00:00 12/11/17 00:00 12/11/17 00:00 12/11/17 00:00 Intake and Output: 12/10/17 12/11/17 18:59 06:59 Intake Total 600 Balance 600 - Medications Medications: Current Medications Acetaminophen (Tylenol 325mg Tab) 650 mg PO Q6 PRN PRN Reason: Pain, Mild (1-3) Aspirin (Ecotrin) 81 mg PO DAILY [facility] Last Admin: 12/10/17 09:18 Dose: 81 mg Carvedilol (Coreg) 12.5 mg PO BID [facility] Last Admin: 12/10/17 21:40 Dose: 12.5 mg Digoxin (Digoxin) 0.125 mg PO DAILY@1800 [facility] Last Admin: 12/10/17 17:16 Dose: 0.125 mg Furosemide (Lasix) 40 mg IVP Q12 [facility] Last Admin: 12/10/17 21:39 Dose: 40 mg Heparin Sodium (Porcine) (Heparin) 5,000 units SC Q12 [facility] Last Admin: 12/10/17 21:35 Dose: 5,000 units Lisinopril (Zestril) 5 mg PO DAILY [facility] Last Admin: 12/10/17 10:55 Dose: Not Given Rosuvastatin Calcium (Crestor) 5 mg PO HS [facility] Last Admin: 12/10/17 21:34 Dose: 5 mg Spironolactone (Aldactone) 25 mg PO DAILY [facility] Last Admin: 12/10/17 09:20 Dose: 25 mg - Labs Labs: 12/10/17 07:24 12/10/17 07:24 PT 11.9 SECONDS (9.7-12.2) 12/08/17 16:36 INR 1.1 12/08/17 16:36 APTT 30 SECONDS (21-34) 12/08/17 16:36 - Constitutional Appears: Well, Non-toxic, No Acute Distress - Head Exam Head Exam: ATRAUMATIC, NORMAL INSPECTION, NORMOCEPHALIC - Eye Exam Eye Exam: EOMI, Normal appearance - ENT Exam ENT Exam: Mucous Membranes Moist - Respiratory Exam Respiratory Exam: Decreased Breath Sounds. absent: Rales, Wheezes Additional comments: coarse breath sounds - Cardiovascular Exam Cardiovascular Exam: +S1, +S2. absent: Irregular Rhythm, Murmur - GI/Abdominal Exam GI & Abdominal Exam: Soft, Normal Bowel Sounds. absent: Firm, Guarding, Rigid - Exam Additional comments: - large left inguinal hernia - Extremities Exam Extremities Exam: Normal Inspection. absent: Calf Tenderness, Full ROM - Neurological Exam Neurological Exam: Alert, Awake, Oriented x3 - Psychiatric Exam Psychiatric exam: Normal Affect, Normal Mood - Skin Skin Exam: Dry, Intact, Normal Color, Warm Assessment and Plan - Assessment and Plan (Free Text) Assessment: 72 yo [place]ian-speaking M with PMHx of VT, Afib, PVD, CHF, CAD, ACID placement, presenting with worsening shortness of breath & L inguinal hernia without signs of incarceration or obstruction. Plan: 1. Worsening shortness of breath--2/2 CHF exacerbation - BNP: 6140->7320 -> 3670 - Trops x 3 negative - CK-MB #1 elevated: 3.67 - CK-MB #2: 3.18 - strict I/Os - continue to keep head of bed elevated @ 45 degrees Imaging: - CXR (12/08): Moderate to severe venous congestion. Moderate loculated left and small right pleural effusion. Prominent consolidative opacification in the left mid to lower lung zone and right lung base. Prominent vascularity in the right paratracheal region. Cardiomegaly. Left-sided pacemaker - Echo: LVEF 30%, LV moderately dilated, mild to moderate concentric LVH, mild left ventricular diastolic dysfunction, sytolic function moderaly impared, Moderate pulmomoc valvular regurgitation Current management: Medications: - continue home meds: -spironolactone 25 mg PO daily -lasix 40mg IV Q12 2. Scrotal swelling - CT abdomen/pelvis (12/08): L inguinal hernia with no evidence of incarceration or obstruction - f/u Vascular surgery (Dr. Fox) recs - pt will need cardiac eval/clearance - pain control - monitor bowel function - further recs pending attending evaluation - f/u Cardio (Dr. Maddox) recs (cardiac clearance for surgery) 3. Hx of Atrial Fibrillation -continue home medications: -Digoxin 0.125mg PO daily -ASA 81mg PO daily -coreg 12.5 mg PO daily -No other anticoagulation 2/2 previous GI bleed -Digoxin level: 0.9 4. Hx of HTN -continue home meds: -coreg 12.5 mg PO daily -lisinopril 5mg PO daily 5. CAD -c/w home medications: -Crestor 5 mg PO daily -ASA 81mg PO daily 6. PPx, Diet, Disposition - DVT ppx: heparin 5000 Units SC q12 - cardiac heart healthy diet Case discussed with Dr. Gonzalez PGY1 [place]
[2017-12-11 07:32] LABS: B-TYPE NATRIURETIC PEPTIDE 3670 pg/mL (0-900)
[2017-12-11 07:37] LABS: BASO # 0.1 K/uL (0.0-0.2); BASO % 1.2 % (0.0-2.0); EOS # 0.2 K/uL (0.0-0.7); EOS % 2.5 % (0.0-4.0); HEMOGLOBIN 13.8 g/dL (12.0-18.0); LYMPH # 1.2 K/uL (1.0-4.3); LYMPH % 16.8 % (20.0-40.0); MEAN CELL VOLUME 89.6 fL (80.0-94.0); MEAN CORPUSCULAR HEMOGLOBIN 30.1 pg (27.0-31.0); MEAN CORPUSCULAR HGB CONC 33.6 g/dL (33.0-37.0); MEAN PLATELET VOLUME 9.7 fL (7.2-11.7); MONO # 1.1 K/uL (0.0-0.8); MONO % 15.3 % (0.0-10.0); NEUT # 4.7 K/uL (1.8-7.0); NEUT % 64.2 % (50.0-75.0); NRBC % 0.2 % (0.0-2.0); RBC 4.59 Mil/uL (4.40-5.90); RED CELL DISTRIBUTION WIDTH 14.1 % (11.5-14.5); WHITE BLOOD COUNT 7.3 K/uL (4.8-10.8)
[2017-12-11] MEDS ORDERED: Caffeine Citrated **INJ** 20 MG/ML IV ONE (07:37)
[2017-12-11 08:06] LABS: ALBUMIN 3.2 g/dL (3.5-5.0); ALT/SGPT 30 U/L (21-72); AST/SGOT 31 U/L (17-59); BLOOD UREA NITROGEN 39 mg/dL (9-20); CALCIUM 8.6 mg/dl (8.6-10.4); GFR NON-AFRICAN AMERICAN > 60
--- NOTE | 2017-12-11 09:33 | CP.PCM.PN ---
Subjective - Date & Time of Evaluation Date of Evaluation: 12/11/17 Time of Evaluation: 09:31 - Subjective Subjective: Gen Sx: Dr Fox Pt S&e. NAEO. Denies complaints. Reportedly for stress test today. Possible OR for herniorraphy pending clearance. Objective - Vital Signs/Intake and Output Vital Signs (last 24 hours): Temp Pulse Resp BP Pulse Ox 97.6 F 62 20 130/78 97 12/11/17 07:00 12/11/17 07:38 12/11/17 07:00 12/11/17 07:00 12/11/17 07:00 Intake and Output: 12/11/17 12/11/17 06:59 18:59 Intake Total 600 Balance 600 - Medications Medications: Current Medications Acetaminophen (Tylenol 325mg Tab) 650 mg PO Q6 PRN PRN Reason: Pain, Mild (1-3) Aspirin (Ecotrin) 81 mg PO DAILY [facility] Last Admin: 12/10/17 09:18 Dose: 81 mg Carvedilol (Coreg) 12.5 mg PO BID [facility] Last Admin: 12/10/17 21:40 Dose: 12.5 mg Digoxin (Digoxin) 0.125 mg PO DAILY@1800 [facility] Last Admin: 12/10/17 17:16 Dose: 0.125 mg Furosemide (Lasix) 40 mg IVP Q12 [facility] Last Admin: 12/10/17 21:39 Dose: 40 mg Heparin Sodium (Porcine) (Heparin) 5,000 units SC Q12 [facility] Last Admin: 12/10/17 21:35 Dose: 5,000 units Lisinopril (Zestril) 5 mg PO DAILY [facility] Last Admin: 12/10/17 10:55 Dose: Not Given Rosuvastatin Calcium (Crestor) 5 mg PO HS [facility] Last Admin: 12/10/17 21:34 Dose: 5 mg Spironolactone (Aldactone) 25 mg PO DAILY [facility] Last Admin: 12/10/17 09:20 Dose: 25 mg - Labs Labs: 12/11/17 06:52 12/11/17 06:52 PT 11.9 SECONDS (9.7-12.2) 12/08/17 16:36 INR 1.1 12/08/17 16:36 APTT 30 SECONDS (21-34) 12/08/17 16:36 - Constitutional Appears: Non-toxic, No Acute Distress - ENT Exam ENT Exam: Mucous Membranes Moist - Respiratory Exam Respiratory Exam: absent: Respiratory Distress - Cardiovascular Exam Cardiovascular Exam: absent: Tachycardia - GI/Abdominal Exam GI & Abdominal Exam: Soft, Hernia (large left inguinal, reducible). absent: Tenderness, Rebound - Neurological Exam Neurological Exam: Alert, Awake, Oriented x3 - Psychiatric Exam Psychiatric exam: Normal Affect - Skin Skin Exam: Normal Color, Warm Assessment and Plan - Assessment and Plan (Free Text) Assessment: 72M with extensive cardiac history with [facility] Plan: stress test today OR pending cardiac/medical clearance d/w Dr Ruddy Jones, PGY4
--- NOTE | 2017-12-11 12:43 | CARD ---
APPROVED REPORT Date of service: 12/11/2017 EXAM: Two-dimensional and M-mode echocardiogram with Doppler and color Doppler. Other Information Quality : GoodRhythm : INDICATION Dyspnea Atrial Fibrillation Cardiac Disease: CAD Chest Pain Congestive Heart Failure ELEVATED TROPONIN 2D DIMENSIONS IVSd1.4 (0.7-1.1cm)LVDd6.8 (3.9-5.9cm) PWd1.3 (0.7-1.1cm)LVDs5.7 (2.5-4.0cm) FS (%) 16.2 %LVEF (%)33.2 (>50%) M-Mode DIMENSIONS Left Atrium (MM)4.87 (2.5-4.0cm)IVSd1.31 (0.7-1.1cm) Aortic Root4.15 (2.2-3.7cm)LVDd7.37 (4.0-5.6cm) Aortic Cusp Exc.1.79 (1.5-2.0cm)PWd1.30 (0.7-1.1cm) FS (%) 23 %LVDs5.66 (2.0-3.8cm) LVEF (%)30 (>50%) Mitral Valve MV E Vuvaqjqm93.7cm/sMV A Pkazkrri93.8cm/sE/A ratio2.1 TDI E/Lateral E'0.0E/Medial E'0.0 Tricuspid Valve TR Peak [id number]/sTR Peak [id number] LEFT VENTRICLE The Left Ventricle is moderately dilated. There is mild to moderate concentric left ventricular hypertrophy. The systolic function is moderately impaired. There is global hypokinesis of the left ventricle. Tissue Doppler imaging reveals mild left ventricular diastolic dysfunction. No left ventricle thrombus noted on this study. There is no ventricular septal defect visualized. There is no left ventricular aneurysm. There is no mass noted in the left ventricle. RIGHT VENTRICLE The right ventricle is normal size. There is normal right ventricular wall thickness. The right ventricular systolic function is normal. ATRIA The left atrium is mildly dilated. The right atrium size is normal. The interatrial septum is intact with no evidence for an atrial septal defect. AORTIC VALVE The aortic valve is calcified but opens well. No aortic regurgitation is present. There is no aortic valvular stenosis. MITRAL VALVE The mitral valve is normal in structure. There is no mitral valve stenosis. There is no mitral valve regurgitation noted. TRICUSPID VALVE The tricuspid valve is normal in structure. There is mild tricuspid regurgitation. PULMONIC VALVE The pulmonary valve is normal in structure. There is mild to moderate pulmonic valvular regurgitation. GREAT VESSELS The aortic root is normal in size. The ascending aorta is normal in size. The pulmonary artery is normal. The IVC is normal in size and collapses >50% with inspiration. PERICARDIAL EFFUSION There is no pericardial effusion. <Conclusion> The Left Ventricle is moderately dilated. There is mild to moderate concentric left ventricular hypertrophy. The systolic function is moderately impaired. There is global hypokinesis of the left ventricle. Tissue Doppler imaging reveals mild left ventricular diastolic dysfunction. The left atrium is mildly dilated. There is mild tricuspid regurgitation. There is mild to moderate pulmonic valvular regurgitation. ISCHEMIC CARDIOMYOPATHY. LVEF IS 30%.
[2017-12-11] MEDS: Digoxin 125 mcg (0.125 mg) Tab PO SCH (17:45)
--- NOTE | 2017-12-11 19:07 | CP.PCM.PN ---
<aJniShoshanasara E - Last Filed: 12/11/17 19:04> Subjective - Date & Time of Evaluation Date of Evaluation: 12/11/17 Time of Evaluation: 04:40 - Subjective Subjective: Cardiology progress note ( Dr. Maddox's service) Patient was seen and examined at bedside post pharmacology stress test. Patient was resting comfortably in bed. Patient denies any acute issues or complaint; denies chest pain, SOB, palpitations and dizziness. Objective - Vital Signs/Intake and Output Vital Signs (last 24 hours): Temp Pulse Resp BP Pulse Ox 98.1 F 72 20 138/79 96 12/11/17 16:00 12/11/17 16:03 12/11/17 16:00 12/11/17 17:45 12/11/17 16:00 - Medications Medications: Current Medications Acetaminophen (Tylenol 325mg Tab) 650 mg PO Q6 PRN PRN Reason: Pain, Mild (1-3) Aspirin (Ecotrin) 81 mg PO DAILY [facility] Last Admin: 12/11/17 10:51 Dose: Not Given Carvedilol (Coreg) 12.5 mg PO BID [facility] Last Admin: 12/11/17 17:45 Dose: 12.5 mg Digoxin (Digoxin) 0.125 mg PO DAILY@1800 [facility] Last Admin: 12/11/17 17:45 Dose: 0.125 mg Furosemide (Lasix) 40 mg IVP Q12 [facility] Last Admin: 12/11/17 10:52 Dose: Not Given Heparin Sodium (Porcine) (Heparin) 5,000 units SC Q12 [facility] Last Admin: 12/11/17 10:51 Dose: Not Given Lisinopril (Zestril) 5 mg PO DAILY [facility] Last Admin: 12/11/17 10:52 Dose: Not Given Rosuvastatin Calcium (Crestor) 5 mg PO HS [facility] Last Admin: 12/10/17 21:34 Dose: 5 mg Spironolactone (Aldactone) 25 mg PO DAILY [facility] Last Admin: 12/11/17 10:51 Dose: Not Given - Labs Labs: 12/11/17 06:52 12/11/17 06:52 PT 11.9 SECONDS (9.7-12.2) 12/08/17 16:36 INR 1.1 12/08/17 16:36 APTT 30 SECONDS (21-34) 12/08/17 16:36 - Constitutional Appears: Well, No Acute Distress - Head Exam Head Exam: ATRAUMATIC, NORMAL INSPECTION - Eye Exam Eye Exam: EOMI - ENT Exam ENT Exam: Mucous Membranes Moist - Respiratory Exam Respiratory Exam: Clear to Ausculation Bilateral, NORMAL BREATHING PATTERN. absent: Prolonged Expiratory Phase, Rhonchi, Wheezes, Respiratory Distress - Cardiovascular Exam Cardiovascular Exam: REGULAR RHYTHM, +S1, +S2 - GI/Abdominal Exam GI & Abdominal Exam: Soft, Normal Bowel Sounds - Exam Additional comments: Left inguinal hernia - Extremities Exam Extremities Exam: Normal Inspection. absent: Calf Tenderness, Pedal Edema - Neurological Exam Neurological Exam: Alert, Awake, Oriented x3 Assessment and Plan (1) CHF exacerbation Assessment & Plan: On admission: BNP (6140--->7320 Echo (2017): LV is moderately dilated. Normal left ventricular wall thickness. LV systolic function is severely impaired. EF (10-15%). LA is moderately dilated. Mild triscuspid regurgitation. Moderate pulmonary hypertension Repeat ECHO (12/11/17): LV moderately dilated. Mild to moderate concentric LVH. Systolic function is moderately impaired. Global hypokinesis LV. LVEF is 30%. Mild left ventricular diastolic dysfunction. Refer to the EMR for full impression Lasix 40mg IV Q12H Spironolactone 25mg PO daily Status: Acute (2) Chest pain Assessment & Plan: Lipid panel: -TGL:63, Chol:137, LDL: 79 and HDL: 42 - TSH 3RD generation: 1.32, WNL - HgbA1C: 6.[address] changes on EKG Lexiscan stress test (12/11/17): Abnormal pharmacologic stress test. Plans for cardiac catherization tomorrow (12/12/17). Status: Acute (3) History of coronary artery disease Assessment & Plan: ASA 81mg PO daily Coreg 12.5mg PO BID Crestor 5mg PO HS Status: Acute (4) Chronic atrial fibrillation Assessment & Plan: Digoxin 0.125mg PO daily Coreg 12.5mg PO BID Status: Acute (5) HTN (hypertension) Assessment & Plan: Coreg 12.5mg PO BID Lisinopril 5mg PO daily Status: Acute (6) Prophylactic measure Assessment & Plan: DVT: Heparin 5,000 units Q12H Plans for cardiac catherization tomorrow am due to abnormal stress test. Cardiac clearance for surgical intervention for inguinal hernia repair is moderate to high risk. All plans and management discussed with Dr. Maddox Status: Acute <Corey Maddox - Last Filed: 12/11/17 21:33> Objective - Vital Signs/Intake and Output Vital Signs (last 24 hours): Temp Pulse Resp BP Pulse Ox 98.1 F 72 20 138/79 96 12/11/17 16:00 12/11/17 16:03 12/11/17 16:00 12/11/17 17:45 12/11/17 16:00 - Medications Medications: Current Medications Acetaminophen (Tylenol 325mg Tab) 650 mg PO Q6 PRN PRN Reason: Pain, Mild (1-3) Aspirin (Ecotrin) 81 mg PO DAILY [facility] Last Admin: 12/11/17 10:51 Dose: Not Given Carvedilol (Coreg) 12.5 mg PO BID [facility] Last Admin: 12/11/17 17:45 Dose: 12.5 mg Digoxin (Digoxin) 0.125 mg PO DAILY@1800 [facility] Last Admin: 12/11/17 17:45 Dose: 0.125 mg Furosemide (Lasix) 40 mg IVP Q12 [facility] Last Admin: 12/11/17 10:52 Dose: Not Given Heparin Sodium (Porcine) (Heparin) 5,000 units SC Q12 [facility] Last Admin: 12/11/17 10:51 Dose: Not Given Lisinopril (Zestril) 5 mg PO DAILY [facility] Last Admin: 12/11/17 10:52 Dose: Not Given Rosuvastatin Calcium (Crestor) 5 mg PO HS [facility] Last Admin: 12/10/17 21:34 Dose: 5 mg Spironolactone (Aldactone) 25 mg PO DAILY [facility] Last Admin: 12/11/17 10:51 Dose: Not Given - Labs Labs: 12/11/17 06:52 12/11/17 06:52 PT 11.9 SECONDS (9.7-12.2) 12/08/17 16:36 INR 1.1 12/08/17 16:36 APTT 30 SECONDS (21-34) 12/08/17 16:36 Assessment and Plan - Assessment and Plan (Free Text) Assessment: Patient seen and evaluated personally by me Plan of care d/w the resident and as documented
--- NOTE | 2017-12-12 07:41 | CARD ---
APPROVED REPORT Date of service: 12/08/2017 EKG Measurement Heart [id number] <Conclusion> Ventricular-paced rhythm Intrinsic rhythm is afib-flutter VPB Abnormal ECG
--- NOTE | 2017-12-12 07:53 | CARD ---
APPROVED REPORT Date of service: 12/11/2017 Protocol: PHARMACOLOGICAL STRESS Test Type: LEXISCAN Test Indications: CARDIAC CLEARENCE Medications: LIST SCAN Medical History: CARDIAC CLEARENCE WITH CARDIAC RISK Target HR: 148 bpm Resting ECG: ATRIAL FIB- FLUTTER WITH LBBB WITH INTERMITTENT VVI PACING Resting Heart Rate: 70 bpm Resting Blood Pressure: 130/80mmHg submaximum (85%): 126 bpm PROCEDURE Pharmacologic stress testing was performed using 0.4mg per 5ml of regadenoson given intravenously over 7-10 seconds. POST EXERCISE Reason for Termination: Protocol Completed Target HR: No Max HR: 71 bpm 79% of Maximum Predicted HR: 148 bpm Exercise duration: 00:30 min:sec, 0 Stage Exercise capacity: 1.0METs Max Blood Pressure: 132/70mmHg Blood Pressure response to exercise: normal resting BP - appropriate response Heart Rate response to exercise: appropriate Chest Pain: No, none Angina index: 0 Arrhythmia: Yes, VPB'S ST Change: No, none FROM BASELINE Deviation: 0 mm INTERPRETATION Stress EKG Conclusion: NONDIAGNOSTIC LEXISCAN STRESS TEST DUE TO PRE-EXISTING LBBB AND INTERMITTENT VVI PACING NORMAL BP RESPONSE TO LEXISCAN NUCLEAR STUDIES TO BE READ SEPARATELY EXAM: Myocardial Perfusion STRESS/REST Imaging Protocol The imaging protocol used to acquire images was Stress Tc-99m/rest Tc-99m 1 day Rest Spect myocardial perfusion imaging was performed in supine position 45 minutes following the injection of 31.0 mCi of Tc-99 Myoview. Gated Stress Spect was performed 45 minutes after intravenous 12.9 mCi Tc-99 Myoview injection. The images were gated to evaluate regional wall motion and calculate ventricular ejection fraction.Images were reconstructed using backfilter projection method in short horizontal and verticle long axis. Spect slices were generated. RESTING DATA ERT042.48hpQF0.10L/min HSE910.00mlMyocardial Tayt467.00g Av. Heart Rate71.00bpm EF16.00% STRESS DATA FFO425.58ikQA6.30L/min KYP337.00mlMyocardial Mkmz962.00g EF16.00% Regional WT score at stress:0.00 Regional WM score at stress:3.00 Summed WT score at stress:4.00 Av. Heart Rate73.00bpmSummed WM score at stress:59.00 LV Perf. Quant 17 Seg. SSS15.00 17 Seg. SRS13.00 17 Seg. SDS2.00 Stress Defect Extent (% LAD)1.30Rest Defect Extent (% LAD)5.60Rev. Defect Extent (% LAD)0.00 Stress Defect Extent (% LCX)93.80Rest Defect Extent (% LCX)73.80Rev. Defect Extent (% LCX)13.80 Stress Defect Extent (% RCA)33.30Rest Defect Extent (% RCA)21.10Rev. Defect Extent (% RCA)11.10 Stress Defect Extent (% MATTY)31.30Rest Defect Extent (% MATTY)23.70Rev. Defect Extent (% MATTY)7.60 IMPRESSION Abnormal Myocardial Perfusion exercise stress study Left Ventricle LV Function:Left ventricle systolic function is severely impaired. The Ejection Fraction is 15-20%. Metabolism/Perfusion Defects: There is large defect in the postero-inferior wall with partial reversibility consistent with ischemia noted. Conclusion 1. There is large defect in the postero-inferior wall with partial reversibility consistent with ischemia noted. 2. Left ventricle systolic function is severely impaired. 3. The Ejection Fraction is 15-20%.
[2017-12-12] MEDS ORDERED: Lidocaine 2% MPF (5 ml) Inj ONE (08:23)
[2017-12-12] MEDS ORDERED: Iodixanol 320 MG/ML 100 ML BOTTLE IV ONE (08:24)
[2017-12-12] MEDS ORDERED: Midazolam 2 MG/2 ML VIAL ONE (08:26)
[2017-12-12] MEDS ORDERED: DiphenhydrAMINE 50 mg/ml Inj ONE (08:48)
--- NOTE | 2017-12-12 08:56 | PCM.ANES ---
Anesthesia Emergent Intubation - Diagnosis Working Diagnosis:: cardiac arrest - Consult Reason for Consult:: emergent endotracheal intubation - Intubation Attempts Previous Number of Intubation Attempts:: 0 - Pre-Intubation Vital Signs Oxygen Delivery Method: Ambu-Bag Level Of Consciousness: Comatose/Unresponsive - Airway Management Possible Aspiration: No - Method of Intubation Intubation Method: Oral ETT ETT Size: 8 Lipline@: 22 Easy: Yes Atramatic: Yes - Intubation Devices Ajit Blade Size Used: 3 - Placement Confirmation Breath Sounds Present & Equal Bilaterally: Yes Gurgling Sounds Not Audible at Epigastrum: Yes Positive EtCO2: Yes Portable CXR: Yes Recommendations: Ventilator, Chest X Ray, ABG
[2017-12-12] MEDS ORDERED: Iodixanol 320 MG/ML 200 ML BOTTLE IV ONE (08:57)
[2017-12-12] MEDS ORDERED: Phenylephrine 10 mg/ml Inj ONE (09:10)
[2017-12-12] MEDS: DOPamine 400mg/250ml D5W 400 MG/250 ML BAG IV PRN ×2 (09:15→12:20)
[2017-12-12] MEDS ORDERED: ceFAZolin 1 gm FROZEN Premix 1 GM/50 ML ML IVPB ONE (09:22)
[2017-12-12] MEDS ORDERED: DOPamine 400mg/250ml D5W 400 MG/250 ML BAG IV ONE (09:29)
[2017-12-12] MEDS: Propofol 10 mg/ml 1,000 MG/100 ML VIAL IV PRN ×3 (09:30→18:11)
[2017-12-12] MEDS ORDERED: Heparin25000 units/250ml 1/2NS 25,000 UNITS/250 ML BAG IV PRN (09:45)
--- NOTE | 2017-12-12 10:57 | CP.PCM.CON ---
<Dewey Salinas - Last Filed: 12/12/17 16:10> History of Present Illness - History of Present Illness History of Present Illness: Critical care consult note: 72 M w/ PMHx of MN, Afib, PVD, CHF (EF 15-20%), CAD s/p ACID, who presents to ED w/ shortness of breath and admitted for CHF exacerbation. Cardiology was consulted and patient had a Lexiscan stress test performed showing large defect in the post/inferior with partial reversibility, severely reduced systolic dys EF 15-20%. Patient was taken for cardiac cath this morning. Upon administration of contrast patient immediately developed hypotension. Code Blue was subsequently called. ACLS procol was initiated. Patient 6 shocks, 2 rounds epinephrine and 1 round of bicarbonate and ROSC was achieved. patient was intubated and Amiodarone ggt, Dopamine ggt, levophed ggt was started. ICU consulted for patient acute condition. 12 Point ROS and further hx unobtainable 2/2 intubation. Review of Systems - Review of Systems All systems: reviewed and no additional remarkable complaints except (HPI) Past Patient History - Infectious Disease Hx of Infectious Diseases: None - Past Medical History & Family History Past Medical History?: No - Past Social History Smoking Status: Heavy Smoker > 10 Cigarettes Daily - CARDIAC Hx Atrial Fibrillation: Yes Hx Congestive Heart Failure: Yes Hx Hypertension: Yes Hx Pacemaker: Yes - PULMONARY Hx Chronic Obstructive Pulmonary Disease (COPD): Yes Hx Emphysema: Yes - NEUROLOGICAL Hx Neurological Disorder: No - HEENT Hx HEENT Problems: Yes - RENAL Hx Chronic Kidney Disease: No - ENDOCRINE/METABOLIC Hx Endocrine Disorders: No - HEMATOLOGICAL/ONCOLOGICAL Hx Human Immunodeficiency Virus (HIV): No - INTEGUMENTARY Hx Dermatological Problems: No - MUSCULOSKELETAL/RHEUMATOLOGICAL Hx Musculoskeletal Disorders: No Hx Falls: No - GASTROINTESTINAL Hx Gastrointestinal Disorders: No - GENITOURINARY/GYNECOLOGICAL Hx Genitourinary Disorders: No - PSYCHIATRIC Hx Substance Use: No - SURGICAL HISTORY Hx Surgeries: Yes Hx Herniorrhaphy: Yes Other/Comment: Surgeries: Hernia repair and Pacemaker insertion - ANESTHESIA Hx Anesthesia: Yes Hx Anesthesia Reactions: No Hx Malignant Hyperthermia: No Meds Allergies/Adverse Reactions: Allergies Allergy/AdvReac Type Severity Reaction Status Date / Time No Known Allergies Allergy Verified 07/16/17 01:50 - Medications Medications: Current Medications Acetaminophen (Tylenol 325mg Tab) 650 mg PO Q6 PRN PRN Reason: Pain, Mild (1-3) Aspirin (Ecotrin) 81 mg PO DAILY [facility] Last Admin: 12/11/17 10:51 Dose: Not Given Aspirin (Aspirin Chewable) 81 mg PO DAILY [facility] Carvedilol (Coreg) 12.5 mg PO BID [facility] Last Admin: 12/11/17 17:45 Dose: 12.5 mg Digoxin (Digoxin) 0.125 mg PO DAILY@1800 [facility] Last Admin: 12/11/17 17:45 Dose: 0.125 mg Furosemide (Lasix) 40 mg IVP Q12 [facility] Last Admin: 12/11/17 22:15 Dose: 40 mg Amiodarone HCl 900 mg/ (Dextrose) 500 mls @ 33.33 mls/hr IV .Q15H1M ONE; 1 MG/ MIN PRN Reason: Protocol Stop: 12/12/17 23:53 Norepinephrine Bitartrate 4 mg (/ Dextrose) 250 mls @ 18.75 mls/hr IV .[id number] PRN; Protocol; 5 MCG/MIN PRN Reason: TITRATE PER MD ORDER Dopamine HCl/Dextrose (Dopamine 400mg/250ml D5w) 400 mg in 250 mls @ 11.737 mls /hr IV .[id number] PRN; Protocol; 5 MCG/KG/MIN PRN Reason: TITRATE PER MD ORDER Heparin Sodium/Sodium Chloride (Heparin 54990 Units/250ml 1/2 Normal Saline) 25 ,000 units in 250 mls @ 7.512 mls/hr IV .Q24H PRN; Protocol; 12 UNITS/KG/HR PRN Reason: PROTOCOL Propofol (Diprivan) 1,000 mg in 100 mls @ 1.878 mls/hr IV .Q24H PRN; Protocol; 5 MCG/KG/MIN PRN Reason: TITRATE PER MD ORDER Lisinopril (Zestril) 5 mg PO DAILY [facility] Last Admin: 12/11/17 10:52 Dose: Not Given Rosuvastatin Calcium (Crestor) 5 mg PO HS [facility] Last Admin: 12/11/17 22:12 Dose: 5 mg Spironolactone (Aldactone) 25 mg PO DAILY [facility] Last Admin: 12/11/17 10:51 Dose: Not Given Physical Exam - Head Exam Head Exam: ATRAUMATIC, NORMOCEPHALIC - Eye Exam Eye Exam: PERRL Pupil Exam: NORMAL ACCOMODATION, PERRL - ENT Exam ENT Exam: Mucous Membranes Moist - Neck Exam Neck exam: Positive for: Normal Inspection. Negative for: Tenderness - Respiratory Exam Respiratory Exam: Clear to Auscultation Bilateral. absent: Rales, Wheezes - Cardiovascular Exam Cardiovascular Exam: REGULAR RHYTHM, RRR, +S1, +S2 - GI/Abdominal Exam GI & Abdominal Exam: Normal Bowel Sounds, Soft. absent: Tenderness - Extremities Exam Extremities exam: Negative for: calf tenderness, pedal edema - Neurological Exam Neurological exam: CN II-XII Intact - Skin Skin Exam: Dry, Warm Results - Vital Signs Recent Vital Signs: Last Vital Signs Temp 97.5 F L 12/12/17 00:23 Pulse 65 12/12/17 00:23 Resp 20 12/12/17 00:23 BP 137/68 12/12/17 00:23 Pulse Ox 98 12/12/17 00:23 - Labs Result Diagrams: 12/12/17 12:11 12/12/17 08:55 Assessment & Plan - Assessment and Plan (Free Text) Assessment: 72 M w/ PMHx of [place], Afib, PVD, CHF (EF 15-20%), CAD s/p ACID, who presents to the ICU following positive stress test, contrast induced hypotension during cardiac cath followed by cardiac arrest. Neuro: - Currently sedated on Diprivan - Will wean as tolerated Pulm: - Currently on PRVC - Wean as tolerated - maintain SPO2 > 92% CV: - Levophed and Dopamine ggt d/curtis - maintain MAP> 65 - Currently hemodynamically stable, systolic of 170 - Cardiology consulted for recs - Cont Amio drip - Cont Asa, Coreg, Lisinopril, Digoxin, and Aldactone - Cont Crestor - F/u serial troponin GI: - NPO - Protonix for ppx Renal: - Monitor I and O - Replete electrolytes as needed Endo: - Maintain euglycemia ID: - No leukocytosis, afebrile - Ancef x 1 - f/u septic work up GI/DVT ppx Case and plan was reviewed and discussed in detail with Dr Casiano. <Atif Casiano - Last Filed: 12/12/17 18:30> Meds - Medications Medications: Current Medications Acetaminophen (Tylenol 325mg Tab) 650 mg PO Q6 PRN PRN Reason: Pain, Mild (1-3) Aspirin (Ecotrin) 81 mg PO DAILY [facility] Last Admin: 12/12/17 14:56 Dose: Not Given Aspirin (Aspirin Chewable) 81 mg PO DAILY [facility] Last Admin: 12/12/17 13:37 Dose: 81 mg Carvedilol (Coreg) 12.5 mg PO BID [facility] Last Admin: 12/12/17 18:16 Dose: Not Given Digoxin (Digoxin) 0.125 mg PO DAILY@1800 [facility] Last Admin: 12/12/17 18:15 Dose: 0.125 mg Furosemide (Lasix) 40 mg IVP Q12 [facility] Last Admin: 12/12/17 13:57 Dose: 40 mg Norepinephrine Bitartrate 4 mg (/ Dextrose) 250 mls @ 18.75 mls/hr IV .[id number] PRN; Protocol; 5 MCG/MIN PRN Reason: TITRATE PER MD ORDER Last Titration: 12/12/17 18:00 Dose: 0 mcg/min, 0 mls/hr Dopamine HCl/Dextrose (Dopamine 400mg/250ml D5w) 400 mg in 250 mls @ 11.737 mls /hr IV .[id number] PRN; Protocol; 5 MCG/KG/MIN PRN Reason: TITRATE PER MD ORDER Last Admin: 12/12/17 12:20 Dose: 3 mcg/kg/min, 7.042 mls/hr Heparin Sodium/Sodium Chloride (Heparin 99422 Units/250ml 1/2 Normal Saline) 25 ,000 units in 250 mls @ 7.512 mls/hr IV .Q24H PRN; Protocol; 12 UNITS/KG/HR PRN Reason: PROTOCOL Last Admin: 12/12/17 11:10 Dose: 12 units/kg/hr, 7.512 mls/hr Propofol (Diprivan) 1,000 mg in 100 mls @ 1.878 mls/hr IV .Q24H PRN; Protocol; 5 MCG/KG/MIN PRN Reason: TITRATE PER MD ORDER Last Admin: 12/12/17 18:11 Dose: 40 mcg/kg/min, 15.023 mls/hr Amiodarone HCl 900 mg/ (Dextrose) 500 mls @ 16.66 mls/hr IV .Q24H ONE; 0.5 MG/ MIN PRN Reason: Protocol Stop: 12/13/17 17:22 Last Admin: 12/12/17 17:36 Dose: Not Given Lisinopril (Zestril) 5 mg PO DAILY [facility] Last Admin: 12/12/17 12:00 Dose: Not Given Pantoprazole Sodium (Protonix Inj) 40 mg IVP DAILY [facility] Last Admin: 12/12/17 12:27 Dose: 40 mg Rosuvastatin Calcium (Crestor) 5 mg PO HS [facility] Last Admin: 12/11/17 22:12 Dose: 5 mg Spironolactone (Aldactone) 25 mg PO DAILY [facility] Last Admin: 12/12/17 13:37 Dose: 25 mg Tamsulosin HCl (Flomax) 0.4 mg PO DAILY [facility] Last Admin: 12/12/17 13:38 Dose: 0.4 mg Results - Vital Signs Recent Vital Signs: Last Vital Signs Temp 97.3 F L 12/12/17 16:00 Pulse 77 12/12/17 17:21 Resp 16 12/12/17 17:21 BP 90/60 L 12/12/17 18:16 Pulse Ox 100 12/12/17 17:21 - Labs Result Diagrams: 12/12/17 12:11 12/12/17 08:55 Labs: Laboratory Results - last 24 hr 12/12/17 12/12/17 12/12/17 08:55 11:50 12:11 WBC 15.1 H D RBC 4.59 Hgb 13.6 Hct 41.6 MCV 90.6 MCH 29.5 MCHC 32.6 L RDW 14.2 Plt Count 203 MPV 9.4 Neut % (Auto) 92.8 H Lymph % (Auto) 2.4 L [place] % (Auto) 3.9 Eos % (Auto) 0.4 Baso % (Auto) 0.5 Neut # (Auto) 14.0 H Lymph # (Auto) 0.4 L [place] # (Auto) 0.6 Eos # (Auto) 0.1 Baso # (Auto) 0.1 Neutrophils % (Manual) 84 H Band Neutrophils % 6 H Lymphocytes % (Manual) 4 L Monocytes % (Manual) 4 Eosinophils % (Manual) 1 Basophils % (Manual) 1 Platelet Estimate Normal RBC Morphology Normal PT INR APTT Puncture Site [place] pCO2 47 H pO2 238 H HCO3 30.1 H ABG pH 7.44 ABG Total CO2 33.3 H ABG O2 Saturation 99.4 H ABG Base Excess 6.6 H Maicol Test Po ABG Potassium 5.0 A-a O2 Difference 416.0 Respiratory Index 1.7 Glucose 255 H Lactate 1.4 Liter Flow 10.0 Vent Mode Prvc Mechanical Rate 16 FiO2 100.0 Tidal Volume 500 PEEP 5 Sodium 136 135.0 Potassium 5.4 H Chloride 99 102.0 Carbon Dioxide 33 H Anion Gap 10 BUN 45 H Creatinine 1.1 Est GFR ( Amer) > 60 Est GFR (Non-Af Amer) > 60 POC Glucose (mg/dL) Random Glucose 262 H Calcium 8.2 L Phosphorus 3.2 Magnesium 2.1 Total Bilirubin 0.7 AST 132 H D ALT 106 H D Alkaline Phosphatase 81 Total Creatine Kinase 136 CK-MB (Mass) 6.25 H Troponin I 0.6560 H* Total Protein 6.6 Albumin 3.4 L Globulin 3.2 Albumin/Globulin Ratio 1.1 Arterial Blood Potassium 5.0 Urine Color Urine Clarity Urine pH Ur Specific [place] Urine Protein Urine Glucose (UA) Urine Ketones Urine Blood Urine Nitrate Urine Bilirubin Urine Urobilinogen Ur Leukocyte Esterase Urine WBC (Auto) Urine RBC (Auto) Urine Bacteria 12/12/17 12/12/17 12/12/17 12:11 13:11 14:23 WBC RBC Hgb Hct MCV MCH MCHC RDW Plt Count MPV Neut % (Auto) Lymph % (Auto) [place] % (Auto) Eos % (Auto) Baso % (Auto) Neut # (Auto) Lymph # (Auto) [place] # (Auto) Eos # (Auto) Baso # (Auto) Neutrophils % (Manual) Band Neutrophils % Lymphocytes % (Manual) Monocytes % (Manual) Eosinophils % (Manual) Basophils % (Manual) Platelet Estimate RBC Morphology PT 12.1 INR 1.1 APTT 34 Puncture Site pCO2 pO2 HCO3 ABG pH ABG Total CO2 ABG O2 Saturation ABG Base Excess Ma[place] Test ABG Potassium A-a O2 Difference Respiratory Index Glucose Lactate Liter Flow Vent Mode Mechanical Rate FiO2 Tidal Volume PEEP Sodium Potassium Chloride Carbon Dioxide Anion Gap BUN Creatinine Est GFR ( Amer) Est GFR (Non-Af Amer) POC Glucose (mg/dL) 197 H Random Glucose Calcium Phosphorus Magnesium Total Bilirubin AST ALT Alkaline Phosphatase Total Creatine Kinase CK-MB (Mass) Troponin I Total Protein Albumin Globulin Albumin/Globulin Ratio Arterial Blood Potassium Urine Color Urine Clarity Urine pH Ur Specific [place] Urine Protein Urine Glucose (UA) Urine Ketones Urine Blood Urine Nitrate Urine Bilirubin Urine Urobilinogen Ur Leukocyte Esterase Urine WBC (Auto) Urine RBC (Auto) Urine Bacteria 12/12/17 12/12/17 12/12/17 16:11 16:11 17:11 WBC RBC Hgb Hct MCV MCH MCHC RDW Plt Count MPV Neut % (Auto) Lymph % (Auto) [place] % (Auto) Eos % (Auto) Baso % (Auto) Neut # (Auto) Lymph # (Auto) [place] # (Auto) Eos # (Auto) Baso # (Auto) Neutrophils % (Manual) Band Neutrophils % Lymphocytes % (Manual) Monocytes % (Manual) Eosinophils % (Manual) Basophils % (Manual) Platelet Estimate RBC Morphology PT INR APTT 52 H D Puncture Site pCO2 pO2 HCO3 ABG pH ABG Total CO2 ABG O2 Saturation ABG Base Excess Ma[place] Test ABG Potassium A-a O2 Difference Respiratory Index Glucose Lactate Liter Flow Vent Mode Mechanical Rate FiO2 Tidal Volume PEEP Sodium Potassium Chloride Carbon Dioxide Anion Gap BUN Creatinine Est GFR ( Amer) Est GFR (Non-Af Amer) POC Glucose (mg/dL) Random Glucose Calcium Phosphorus Magnesium Total Bilirubin AST ALT Alkaline Phosphatase Total Creatine Kinase 232 H CK-MB (Mass) 8.73 H Troponin I 1.6300 H* Total Protein Albumin Globulin Albumin/Globulin Ratio Arterial Blood Potassium Urine Color Straw Urine Clarity Clear Urine pH 5.0 Ur Specific [place] 1.006 Urine Protein Negative Urine Glucose (UA) Normal Urine Ketones Negative Urine Blood 2+ H Urine Nitrate Negative Urine Bilirubin Negative Urine Urobilinogen Normal Ur Leukocyte Esterase Neg Urine WBC (Auto) 3 Urine RBC (Auto) 59 H Urine Bacteria Rare Attending/Attestation - Attestation I have personally seen and examined this patient.: Yes I have fully participated in the care of the patient.: Yes I have reviewed all pertinent clinical information: Yes Notes (Text): 12/12/17 18:27 Patient seen and examined 72-year-old male transferred to intensive care unit post cardiac arrest and resuscitation during cardiac cath Patient is intubatedon ventilatory support Continue amiodarone drip Continue heparin drip IV sedation assessment and plan as per resident note
[2017-12-12] MEDS: Norepinephrine 4 MG in Dextrose 5% In Water 246 ML IV PRN (11:00)
[2017-12-12 11:55] LABS: ABG ALLEN TEST PO; ARTERIAL BLOOD GAS HCO3 30.1 mmol/L (21-28); ARTERIAL BLOOD GAS O2 SAT 99.4 % (95-98); ARTERIAL BLOOD GAS PCO2 47 mm/Hg (35-45); ARTERIAL BLOOD GAS PH 7.44 (7.35-7.45); ARTERIAL BLOOD GAS PO2 238 mm/Hg (80-100); ARTERIAL BLOOD GAS TCO2 33.3 mmol/L (22-28)
[2017-12-12 12:24] LABS: BASO # 0.1 K/uL (0.0-0.2); BASO % 0.5 % (0.0-2.0); EOS # 0.1 K/uL (0.0-0.7); EOS % 0.4 % (0.0-4.0); HEMOGLOBIN 13.6 g/dL (12.0-18.0); INR 1.1; LYMPH # 0.4 K/uL (1.0-4.3); LYMPH % 2.4 % (20.0-40.0); MEAN CELL VOLUME 90.6 fL (80.0-94.0); MEAN CORPUSCULAR HEMOGLOBIN 29.5 pg (27.0-31.0); MEAN CORPUSCULAR HGB CONC 32.6 g/dL (33.0-37.0); MEAN PLATELET VOLUME 9.4 fL (7.2-11.7); MONO # 0.6 K/uL (0.0-0.8); MONO % 3.9 % (0.0-10.0); NEUT % 92.8 % (50.0-75.0); PLATELET COUNT 203 K/uL (130-400); PROTHROMBIN TIME 12.1 SECONDS (9.7-12.2); RBC 4.59 Mil/uL (4.40-5.90); RED CELL DISTRIBUTION WIDTH 14.2 % (11.5-14.5); WHITE BLOOD COUNT 15.1 K/uL (4.8-10.8)
--- NOTE | 2017-12-12 12:45 | RAD ---
Indication: Status post intubation Portable chest Comparison: Chest x-ray performed 12/08/17 Findings: Endotracheal tube extends to the proximal right mainstem bronchus and should be withdrawn approximately 4 cm. Numerous external wires and leads obscure evaluation of the underlying parenchyma. External defibrillator pad. Left-sided pacemaker. Cardiomegaly. Ectatic aorta. Atherosclerotic calcifications the aorta. Moderate pulmonary venous congestion. Tiny bilateral pleural effusions. Bibasilar atelectasis. No definite pneumothorax. Osseous demineralization. Degenerative changes. Impression: Endotracheal tube extends to the proximal right mainstem bronchus and should be withdrawn approximately 4 cm. Moderate pulmonary venous congestion. Tiny bilateral pleural effusions. Bibasilar atelectasis. Left-sided pacemaker. Cardiomegaly. Findings discussed with on 12/12/17 at 12:43 p.m.
[2017-12-12 13:01] LABS: ALB/GLOB RATIO 1.1 (1.0-2.1); ALBUMIN 3.4 g/dL (3.5-5.0); ALT/SGPT 106 U/L (21-72); AST/SGOT 132 U/L (17-59); BLOOD UREA NITROGEN 45 mg/dL (9-20); CALCIUM 8.2 mg/dl (8.6-10.4); GFR NON-AFRICAN AMERICAN > 60
[2017-12-12 13:06] LABS: BANDS 6 % (0-2); BASOPHIL 1 % (0-2); EOSINOPHIL 1 % (0-4); LYMPHOCYTE 4 % (20-40); MONOCYTE 4 % (0-10); NEUTROPHIL 84 % (50-75); PLATELET ESTIMATE NORMAL (NORMAL); TOTAL CELLS COUNTED 100
[2017-12-12 13:18] LABS: CK-MB 6.25 ng/mL (0.0-3.38)
--- NOTE | 2017-12-12 14:49 | PCM.RRT ---
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 PURCHASE ANALYST Reason for Call: Hypotension, O2 Saturation below 90% PURCHASE ANALYST Called By: Physician, Other Disciplines - IV IV Inserted during PURCHASE ANALYST?: Yes New IV Insertion Tolerance: Good - Respiratory PURCHASE ANALYST Delivery Method: Intubated Oxygen Flow Rate: 60 Received Nebulizer Treatments: No Was the Patient Ventilated with Bag/Mask 100% O2?: Yes Secretions Suctioned?: No Was the Patient Intubated?: Yes Was the Patient Placed on a Ventilator?: Yes - Ventilator Settings Mode: PRVC Ventilator Respiratory Rate Settin Ventilator Tidal Volume Settin PEEP/CPAP (cm H2O): 5 SAO2 %: 100 FIO2 (% Oxygen): 60 - Diagnostic Test Ordered EKG: Yes Chest X-Ray: Yes Other Diagnostic Test Ordered: APRIL, ABG shock panel - Stat Labs Ordered PURCHASE ANALYST Stat Labs Ordered: CBC, TROPONIN, LACTIC ACID, ABG CPR started during PURCHASE ANALYST?: Yes - Vital Signs Vital Signs: POST ACLS: BP: 178/100 on pressors HR: 80 O2: 100% I.Reason for PURCHASE ANALYST - A) Acute Change in Patient: (Select all that apply): Acute change in SBP below, Acute change in SpO2 less - Neurological Status (Select all that apply): absent: Alert, Responsive - Respiratory Oxygen Delivery Method: Intubated - Constitutional Appears: In Acute Distress - Head Head Exam: ATRAUMATIC - Respiratory Exam Respiratory Exam: NORMAL BREATHING PATTERN Additional comments: Intubation - Cardiovascular Exam Cardiovascular Exam: REGULAR RHYTHM Additional comments: On pressors and amiodarone drip - GI/Abdominal Exam GI & Abdominal Exam: Normal Bowel Sounds - Extremities Exam Extremities Exam: absent: Calf Tenderness, Pedal Edema Plan - Assessment of Findings&Treatment Plan 72 M w/ PMHx of [place], Afib, PVD, CHF (EF 15-20%), CAD s/p ACID, who presents to the ICU following positive stress test, contrast induced hypotension during cardiac cath and oxygen desatutration followed by cardiac arrest. ACLS protocol was initiated, patient received 6 shocks, 2 rounds epinephrine and 1 round of bicarbonate. Levophed and Dopamine was initiated as well as amiodaone drip and cocktail of solumedrol 125mg PO once, pepcid and benadryl Currently stable on titratable pressors and amiodarone drip Transferred to ICU Mitchell catheter was inserted A-line was inserted and a femoral line on the right sided
[2017-12-12 16:35] LABS: URINE BACTERIA RARE (<OCC); URINE BILIRUBIN NEGATIVE (NEGATIVE); URINE BLOOD 2+ (NEGATIVE); URINE CLARITY Clear (Clear); URINE COLOR Straw (YELLOW); URINE GLUCOSE (UA) NORMAL (Normal); URINE LEUKOCYTE ESTERASE NEG Leu/uL (Negative); URINE PROTEIN NEGATIVE (NEGATIVE); URINE UROBILINOGEN NORMAL mg/dL (0.2-1.0)
[2017-12-12 16:57] LABS: CK-MB 8.73 ng/mL (0.0-3.38); TROPONIN I 1.63 ng/mL (0.00-0.120)
--- NOTE | 2017-12-12 18:01 | CP.PCM.PN ---
Subjective - Date & Time of Evaluation Date of Evaluation: 12/12/17 Time of Evaluation: 17:59 - Subjective Subjective: General surgery note for Dr. Monet Hernandez, PGY-2 Pt S & E at bedside 1730 Pt in ICU now s/p cardiac cath with code blue. Pt intubated, sedated, on Levophed, Dopamine, and heparin drip. Per nursing, pt coded after having dye i njection in cardiac cath, procedure was aborted and pt stabilized- sent to ICU. Vent settings: PRVC, RR 16, TV 500, PEEP 5, FiO2 60% Objective - Vital Signs/Intake and Output Vital Signs (last 24 hours): Temp Pulse Resp BP Pulse Ox 97.3 F L 77 16 100/73 100 12/12/17 16:00 12/12/17 17:21 12/12/17 17:21 12/12/17 17:21 12/12/17 17:21 Intake and Output: 12/12/17 12/12/17 06:59 18:59 Intake Total 500 974.8 Output Total 700 Balance 500 274.8 - Medications Medications: Current Medications Acetaminophen (Tylenol 325mg Tab) 650 mg PO Q6 PRN PRN Reason: Pain, Mild (1-3) Aspirin (Ecotrin) 81 mg PO DAILY [facility] Last Admin: 12/12/17 14:56 Dose: Not Given Aspirin (Aspirin Chewable) 81 mg PO DAILY [facility] Last Admin: 12/12/17 13:37 Dose: 81 mg Carvedilol (Coreg) 12.5 mg PO BID [facility] Last Admin: 12/12/17 13:32 Dose: Not Given Digoxin (Digoxin) 0.125 mg PO DAILY@1800 [facility] Last Admin: 12/11/17 17:45 Dose: 0.125 mg Furosemide (Lasix) 40 mg IVP Q12 [facility] Last Admin: 12/12/17 13:57 Dose: 40 mg Norepinephrine Bitartrate 4 mg (/ Dextrose) 250 mls @ 18.75 mls/hr IV .[id number] PRN; Protocol; 5 MCG/MIN PRN Reason: TITRATE PER MD ORDER Last Admin: 12/12/17 11:00 Dose: 3 mcg/min, 11.25 mls/hr Dopamine HCl/Dextrose (Dopamine 400mg/250ml D5w) 400 mg in 250 mls @ 11.737 mls/hr IV .[id number] PRN; Protocol; 5 MCG/KG/MIN PRN Reason: TITRATE PER MD ORDER Last Admin: 12/12/17 12:20 Dose: 3 mcg/kg/min, 7.042 mls/hr Heparin Sodium/Sodium Chloride (Heparin 25718 Units/250ml 1/2 Normal Saline) 25,000 units in 250 mls @ 7.512 mls/hr IV .Q24H PRN; Protocol; 12 UNITS/KG/HR PRN Reason: PROTOCOL Last Admin: 12/12/17 11:10 Dose: 12 units/kg/hr, 7.512 mls/hr Propofol (Diprivan) 1,000 mg in 100 mls @ 1.878 mls/hr IV .Q24H PRN; Protocol; 5 MCG/KG/MIN PRN Reason: TITRATE PER MD ORDER Last Titration: 12/12/17 15:40 Dose: 45 mcg/kg/min, 16.901 mls/hr Amiodarone HCl 900 mg/ (Dextrose) 500 mls @ 16.66 mls/hr IV .Q24H ONE; 0.5 MG/MIN PRN Reason: Protocol Stop: 12/13/17 17:22 Last Admin: 12/12/17 17:36 Dose: Not Given Lisinopril (Zestril) 5 mg PO DAILY [facility] Last Admin: 12/12/17 12:00 Dose: Not Given Pantoprazole Sodium (Protonix Inj) 40 mg IVP DAILY [facility] Last Admin: 12/12/17 12:27 Dose: 40 mg Rosuvastatin Calcium (Crestor) 5 mg PO HS [facility] Last Admin: 12/11/17 22:12 Dose: 5 mg Spironolactone (Aldactone) 25 mg PO DAILY [facility] Last Admin: 12/12/17 13:37 Dose: 25 mg Tamsulosin HCl (Flomax) 0.4 mg PO DAILY [facility] Last Admin: 12/12/17 13:38 Dose: 0.4 mg - Labs Labs: 12/12/17 12:11 12/12/17 08:55 PT 12.1 SECONDS (9.7-12.2) 12/12/17 12:11 INR 1.1 12/12/17 12:11 APTT 52 SECONDS (21-34) H D 12/12/17 17:11 - Constitutional Appears: No Acute Distress, Cachectic - Head Exam Head Exam: ATRAUMATIC, NORMOCEPHALIC Additional comments: ET tube in place OGT in place - Eye Exam Eye Exam: absent: EOMI - ENT Exam ENT Exam: Mucous Membranes Moist - Respiratory Exam Respiratory Exam: NORMAL BREATHING PATTERN (on mech vent) - GI/Abdominal Exam GI & Abdominal Exam: Soft. absent: Distended, Firm - Extremities Exam Extremities Exam: Normal Inspection - Neurological Exam Neurological Exam: absent: Alert, Awake, Oriented x3 Additional comments: intubated, sedated, not arousable to verbal or noxious stimuli GCS 7 - Psychiatric Exam Additional comments: intubated, sedated - Skin Skin Exam: Diaphoretic Assessment and Plan - Assessment and Plan (Free Text) Assessment: 72M w/extensive cardiac history with LIH, s/p uncompleted cardiac cath with cardiac event now intubated/sedated in ICU Plan: Pt too unstable for surgical intervention for left inguinal hernia Please re-consult as needed Will BABS Hernandez, PGY-2
[2017-12-12] MEDS: Digoxin 125 mcg (0.125 mg) Tab PO SCH (18:15)
[2017-12-12 18:16] VITALS: PULSE 68
[2017-12-13] MEDS: Propofol 10 mg/ml 1,000 MG/100 ML VIAL IV PRN ×4 (01:16→21:25)
[2017-12-13] MEDS: Norepinephrine 4 MG in Dextrose 5% In Water 246 ML IV PRN ×3 (05:00→21:22)
[2017-12-13 05:47] LABS: ARTERIAL BLOOD GAS HCO3 30.5 mmol/L (21-28); ARTERIAL BLOOD GAS O2 SAT 99.8 % (95-98); ARTERIAL BLOOD GAS PCO2 42 mm/Hg (35-45); ARTERIAL BLOOD GAS PH 7.48 (7.35-7.45); ARTERIAL BLOOD GAS PO2 205 mm/Hg (80-100); ARTERIAL BLOOD GAS TCO2 32.6 mmol/L (22-28)
[2017-12-13 06:31] LABS: BASO % 0.2 % (0.0-2.0); HEMOGLOBIN 14.8 g/dL (12.0-18.0); LYMPH # 0.7 K/uL (1.0-4.3); LYMPH % 4.5 % (20.0-40.0); MEAN CELL VOLUME 90.2 fL (80.0-94.0); MEAN CORPUSCULAR HEMOGLOBIN 29.6 pg (27.0-31.0); MEAN CORPUSCULAR HGB CONC 32.9 g/dL (33.0-37.0); MEAN PLATELET VOLUME 10.2 fL (7.2-11.7); MONO % 6.5 % (0.0-10.0); NEUT # 13.3 K/uL (1.8-7.0); NEUT % 88.8 % (50.0-75.0); PLATELET COUNT 241 K/uL (130-400); RED CELL DISTRIBUTION WIDTH 14.8 % (11.5-14.5)
[2017-12-13 06:39] LABS: ALBUMIN 3.4 g/dL (3.5-5.0); CALCIUM 8.7 mg/dl (8.6-10.4)
[2017-12-13 08:40] LABS: BANDS 5 % (0-2); LYMPHOCYTE 6 % (20-40); MONOCYTE 7 % (0-10); NEUTROPHIL 82 % (50-75); PLATELET ESTIMATE NORMAL (NORMAL); TOTAL CELLS COUNTED 100
[2017-12-13] MEDS ORDERED: Sodium Chloride 0.9% 1,000 ML IV SCH (11:15)
--- NOTE | 2017-12-13 11:53 | CP.PCM.PN ---
<Joaquín Gunter E - Last Filed: 12/13/17 19:20> Subjective - Date & Time of Evaluation Date of Evaluation: 12/13/17 Time of Evaluation: 09:20 - Subjective Subjective: Cardiology consult note (Dr. Maddox's service) Patient was seen and examined at bedside. Plans for extubation and on Cipap trial. Patient is off sedation and he is more alert and attempting to self- extubate. ROS not able to obtain due to current clinical status. Objective - Vital Signs/Intake and Output Vital Signs (last 24 hours): Temp Pulse Resp BP Pulse Ox 98.3 F 81 26 H 89/63 L 92 L 12/13/17 08:00 12/13/17 11:15 12/13/17 11:15 12/13/17 11:15 12/13/17 11:15 Intake and Output: 12/13/17 12/13/17 06:59 18:59 Intake Total 1649.8 558.1 Output Total 790 56 Balance 859.8 502.1 - Medications Medications: Current Medications Acetaminophen (Tylenol 325mg Tab) 650 mg PO Q6 PRN PRN Reason: Pain, Mild (1-3) Amiodarone HCl (Cordarone) 200 mg PO DAILY [facility] Last Admin: 12/13/17 11:34 Dose: 200 mg Aspirin (Ecotrin) 81 mg PO DAILY [facility] Last Admin: 12/13/17 10:36 Dose: Not Given Norepinephrine Bitartrate 4 mg (/ Dextrose) 250 mls @ 18.75 mls/hr IV .[id number] PRN; Protocol; 5 MCG/MIN PRN Reason: TITRATE PER MD ORDER Last Titration: 12/13/17 11:29 Dose: 10 mcg/min, 37.5 mls/hr Heparin Sodium/Sodium Chloride (Heparin 02489 Units/250ml 1/2 Normal Saline) 25 ,000 units in 250 mls @ 7.512 mls/hr IV .Q24H PRN; Protocol; 12 UNITS/KG/HR PRN Reason: PROTOCOL Last Titration: 12/13/17 01:16 Dose: 9 units/kg/hr, 5.634 mls/hr Propofol (Diprivan) 1,000 mg in 100 mls @ 1.878 mls/hr IV .Q24H PRN; Protocol; 5 MCG/KG/MIN PRN Reason: TITRATE PER MD ORDER Last Titration: 12/13/17 10:39 Dose: 10 mcg/kg/min, 3.756 mls/hr Amiodarone HCl 900 mg/ (Dextrose) 500 mls @ 16.66 mls/hr IV .Q24H ONE; 0.5 MG/ MIN PRN Reason: Protocol Stop: 12/13/17 17:22 Last Admin: 12/12/17 17:36 Dose: Not Given Sodium Chloride (Sodium Chloride 0.9%) 1,000 mls @ 100 mls/hr IV .Q10H [facility] Last Admin: 12/13/17 11:34 Dose: 100 mls/hr Pantoprazole Sodium (Protonix Inj) 40 mg IVP DAILY [facility] Last Admin: 12/13/17 10:51 Dose: 40 mg Rosuvastatin Calcium (Crestor) 5 mg PO HS [facility] Last Admin: 12/12/17 21:41 Dose: 5 mg Tamsulosin HCl (Flomax) 0.4 mg PO DAILY [facility] Last Admin: 12/13/17 10:51 Dose: 0.4 mg - Labs Labs: 12/13/17 06:22 12/13/17 06:17 PT 12.1 SECONDS (9.7-12.2) 12/12/17 12:11 INR 1.1 12/12/17 12:11 APTT 47 SECONDS (21-34) H D 12/13/17 06:39 - Constitutional Appears: No Acute Distress - Head Exam Head Exam: ATRAUMATIC - Respiratory Exam Respiratory Exam: NORMAL BREATHING PATTERN Additional comments: During the encounter, patient still remains intubated - Cardiovascular Exam Cardiovascular Exam: REGULAR RHYTHM Additional comments: pacemaker pacer - Extremities Exam Extremities Exam: absent: Pedal Edema Assessment and Plan (1) NSTEMI (non-ST elevated myocardial infarction) Assessment & Plan: 72 Y[place] male w/ PMHx of [place], Afib, PVD, CHF, CAD, ACID, who presents to ED w/ shortness of breath & genital swelling, admitted with the diagnosis of CHF exacerbation. Patient states that upon presentation, he had shortness of breath and intermittent left-sided chest pain that is non-radiating. Cardiology consult placed for cardiac clearance for left inguinal hernia: Echo (2017): LV is moderately dilated. Normal left ventricular wall thickness. LV systolic function is severely impaired. EF (10-15%). LA is moderately dilated. Mild triscuspid regurgitation. Moderate pulmonary hypertension Repeat ECHO (12/11/17): LV moderately dilated. Mild to moderate concentric LVH. Systolic function is moderately impaired. Global hypokinesis LV. LVEF is 30%. Mild left ventricular diastolic dysfunction. Refer to the EMR for full impression Lexiscan stress test (12/11/17): Abnormal pharmacologic stress test - Patient had cardiac arrest during cardiac catherization (12/12/17) and transferred to the ICU; ROSC obtained after 6 shocks, 2 rounds of Epi and 1 round of bicarb: 1. Plans for extubation 2. Amiodarone IV drip for arrhythmia discontinued, switched to 200mg PO daily 3. Currently, levophed drip for hypotension 4. Positive troponin: 0.6560-->1.6300-->1.5000; currently on heparin drip 5. CAD: ASA 81mg PO daily, crestor 5mg PO HS 6. Abnormal stress test: recommendation for further evaluation cardiac catherization once patient is stable Status: Acute (2) Prophylactic measure Assessment & Plan: DVT: Heparin drip GI: Protonix 40mg IV daily All plans and management discussed with Dr. Maddox Status: Acute <Corey Maddox - Last Filed: 12/14/17 00:01> Objective - Vital Signs/Intake and Output Vital Signs (last 24 hours): Temp Pulse Resp BP Pulse Ox 100.2 F H 93 H 16 93/54 L 95 12/13/17 20:00 12/13/17 23:00 12/13/17 23:00 12/13/17 23:04 12/13/17 23:00 Intake and Output: 12/13/17 12/14/17 18:59 06:59 Intake Total 2166.8 1123.6 Output Total 225 160 Balance 1941.8 963.6 - Medications Medications: Current Medications Acetaminophen (Tylenol 325mg Tab) 650 mg PO Q6 PRN PRN Reason: Pain, Mild (1-3) Amiodarone HCl (Cordarone) 200 mg PO DAILY [facility] Last Admin: 12/13/17 11:34 Dose: 200 mg Aspirin (Ecotrin) 81 mg PO DAILY [facility] Last Admin: 12/13/17 10:36 Dose: Not Given Norepinephrine Bitartrate 4 mg (/ Dextrose) 250 mls @ 18.75 mls/hr IV .[id number] PRN; Protocol; 5 MCG/MIN PRN Reason: TITRATE PER MD ORDER Last Admin: 12/13/17 21:22 Dose: 8 mcg/min, 30 mls/hr Propofol (Diprivan) 1,000 mg in 100 mls @ 1.878 mls/hr IV .Q24H PRN; Protocol; 5 MCG/KG/MIN PRN Reason: TITRATE PER MD ORDER Last Admin: 12/13/17 21:25 Dose: 60 mcg/kg/min, 22.535 mls/hr Heparin Sodium/Sodium Chloride (Heparin 00379 Units/250ml 1/2 Normal Saline) 25 ,000 units in 250 mls @ 8.686 mls/hr IV .Q24H PRN; Protocol; 13 UNITS/KG/HR PRN Reason: ADJUST RATE PER PROTOCOL Last Admin: 12/13/17 15:02 Dose: 13 units/kg/hr, 8.686 mls/hr Sodium Chloride (Sodium Chloride 0.9%) 1,000 mls @ 75 mls/hr IV .[id number] [facility] Last Admin: 12/13/17 16:30 Dose: 75 mls/hr Pantoprazole Sodium (Protonix Inj) 40 mg IVP DAILY [facility] Last Admin: 12/13/17 10:51 Dose: 40 mg Rosuvastatin Calcium (Crestor) 5 mg PO HS [facility] Last Admin: 12/13/17 21:28 Dose: 5 mg Tamsulosin HCl (Flomax) 0.4 mg PO DAILY [facility] Last Admin: 12/13/17 10:51 Dose: 0.4 mg - Labs Labs: 12/13/17 06:22 12/13/17 06:17 PT 12.1 SECONDS (9.7-12.2) 12/12/17 12:11 INR 1.1 12/12/17 12:11 APTT 81 SECONDS (21-34) H D 12/13/17 20:24 Assessment and Plan - Assessment and Plan (Free Text) Assessment: Patient seen and evaluated personally by ar Plan of care d/w the director medical safety and as documented
--- NOTE | 2017-12-13 13:30 | CP.CCUPN ---
<Dewey Salinas - Last Filed: 12/13/17 16:03> CCU Subjective - Physician Review Subjective (Free Text): Critical care progress note: Pt seen and examined at bedside. No acute events overnight. Patient is currently intubated and sedated on propofol ggt. Patient is on pressor support - on Levo 8mcg. 12 Point ROS limited 2/2 intubation. CCU Objective - Vital Signs / Intake & Output Vital Signs (Last 4 hours): Vital Signs Pulse Resp BP BP Pulse Ox 12/13/17 13:05 75 14 88/48 L 95 12/13/17 12:24 84 18 129/70 95 12/13/17 12:07 84 27 H 120/71 95 12/13/17 11:44 74 29 H 109/74 98 12/13/17 11:15 81 26 H 89/63 L 92 L 12/13/17 10:28 94/62 L 12/13/17 10:02 63 16 88/61 L 94 L 12/13/17 09:36 90/62 L Intake and Output (Last 8hrs): Intake & Output 12/12/17 12/13/17 12/13/17 22:59 06:59 14:59 Intake Total 799.7 1249.5 766.8 Output Total 1140 400 75 Balance -340.3 849.5 691.8 Weight 147 lb 4.8 oz Intake: IV 188 587 230 Intake, IV Amount 511.7 502.5 396.8 Left Forearm 183.4 133.6 66.8 Lfa 60.0 50.5 39.2 Right Distal Port Femoral 137.0 131.4 65.8 Right Medial Port Femoral 67.8 127.8 225.0 Right Proximal Port 63.5 59.2 Femoral Tube Feeding 100 160 140 Output: Urine 1140 400 75 Urethral (Mitchell) 1140 400 75 - Physical Exam Head: Positive for: Atraumatic, Normocephalic Pupils: Positive for: PERRL Mouth: Positive for: Moist Mucous Membranes Neck: Positive for: Normal Range of Motion Respiratory/Chest: Positive for: Clear to Auscultation. Negative for: Wheezes, Rales Cardiovascular: Positive for: Regular Rate and Rhythm, Normal S1, S2 Abdomen: Positive for: Normal Bowel Sounds. Negative for: Tenderness, Distention Upper Extremity: Positive for: Normal Inspection. Negative for: Cyanosis, Edema Lower Extremity: Negative for: Edema Neurological: Positive for: CN II-XII Intact Skin: Positive for: Warm, Dry Other physical findings (Free Text): Sedated on propofol - Medications Active Medications: Active Medications Generic Name Dose Route Start Last Admin Trade Name Freq PRN Reason Stop Dose Admin Acetaminophen 650 mg 12/08/17 20:40 Tylenol 325mg Tab PO Q6 PRN Pain, Mild (1-3) Amiodarone HCl 200 mg 12/13/17 11:45 12/13/17 11:34 Cordarone PO 200 mg DAILY ASPEN Administration Aspirin 81 mg 12/09/17 10:00 12/13/17 10:36 Ecotrin PO Not Given DAILY ASPEN Norepinephrine Bitartrate 4 mg 250 mls @ 18.75 mls/hr 12/12/17 08:53 11:29 / Dextrose IV 10 mcg/min .[id number] PRN 37.5 mls/hr TITRATE PER MD ORDER Titration Protocol 5 MCG/MIN Heparin Sodium/Sodium Chloride 25,000 units in 250 mls @ 7.512 mls/hr 09:45 12/13/17 01:16 Heparin 95364 Units/250ml 1/2 Normal Saline IV 9 units/kg/hr .Q24H PRN 5.634 mls/hr PROTOCOL Titration Protocol 12 UNITS/KG/HR Propofol 1,000 mg in 100 mls @ 1.878 mls/hr 12/12/17 09:47 12/13/17 13:13 Diprivan IV 30 mcg/kg/min .Q24H PRN 11.267 mls/hr TITRATE PER MD ORDER Titration Protocol 5 MCG/KG/MIN Amiodarone HCl 900 mg/ 500 mls @ 16.66 mls/hr 12/12/17 17:24 12/12/17 17:36 Dextrose IV 12/13/17 17:22 Not Given .Q24H ONE Protocol 0.5 MG/MIN Sodium Chloride 1,000 mls @ 100 mls/hr 12/13/17 11:15 12/13/17 11:34 Sodium Chloride 0.9% IV 100 mls/hr .Q10H ASPEN Administration Pantoprazole Sodium 40 mg 12/12/17 11:15 12/13/17 10:51 Protonix Inj IVP 40 mg DAILY ASPEN Administration Rosuvastatin Calcium 5 mg 12/08/17 22:00 12/12/17 21:41 Crestor PO 5 mg HS ASPEN Administration Tamsulosin HCl 0.4 mg 12/12/17 13:30 12/13/17 10:51 Flomax PO 0.4 mg DAILY ASPEN Administration - Patient Studies Lab Studies: Lab Studies 12/13/17 12/13/17 12/13/17 Range/Units 06:39 06:22 06:17 WBC 15.0 H (4.8-10.8) K/uL RBC 5.00 (4.40-5.90) Mil/uL Hgb 14.8 (12.0-18.0) g/dL Hct 45.1 (35.0-51.0) % MCV 90.2 (80.0-94.0) fL MCH 29.6 (27.0-31.0) pg MCHC 32.9 L (33.0-37.0) g/dL RDW 14.8 H (11.5-14.5) % Plt Count 241 (130-400) K/uL MPV 10.2 (7.2-11.7) fL Neut % (Auto) 88.8 H (50.0-75.0) % Lymph % (Auto) 4.5 L (20.0-40.0) % [place] % (Auto) 6.5 (0.0-10.0) % Eos % (Auto) 0.0 (0.0-4.0) % Baso % (Auto) 0.2 (0.0-2.0) % Neut # (Auto) 13.3 H (1.8-7.0) K/uL Lymph # (Auto) 0.7 L (1.0-4.3) K/uL [place] # (Auto) 1.0 H (0.0-0.8) K/uL Eos # (Auto) 0.0 (0.0-0.7) K/uL Baso # (Auto) 0.0 (0.0-0.2) K/uL Neutrophils % (Manual) 82 H (50-75) % Band Neutrophils % 5 H (0-2) % Lymphocytes % (Manual) 6 L (20-40) % Monocytes % (Manual) 7 (0-10) % Platelet Estimate Normal (NORMAL) RBC Morphology Normal APTT 47 H D (21-34) SECONDS Puncture Site pCO2 (35-45) mm/Hg pO2 (80-100) mm/Hg HCO3 (21-28) mmol/L ABG pH (7.35-7.45) ABG Total CO2 (22-28) mmol/L ABG O2 Saturation (95-98) % ABG Base Excess (-2.0-3.0) mmol/L Maicol Test ABG Potassium (3.6-5.2) mmol/L A-a O2 Difference mm/Hg Respiratory Index Sodium (132-148) mmol/l Chloride (98-107) mmol/L Glucose (75-110) mg/dl Lactate (0.7-2.1) mmol/L Vent Mode Mechanical Rate FiO2 % Tidal Volume PEEP Potassium (3.6-5.2) mmol/L Carbon Dioxide (22-30) mmol/L Anion Gap (10-20) BUN (9-20) mg/dL Creatinine (0.8-1.5) mg/dL Est GFR ( Amer) Est GFR (Non-Af Amer) POC Glucose (mg/dL) (65-110) mg/dL Random Glucose (75-110) mg/dL Calcium (8.6-10.4) mg/dl Phosphorus (2.5-4.5) mg/dL Magnesium (1.6-2.3) mg/dL Total Bilirubin (0.2-1.3) mg/dL AST (17-59) U/L ALT (21-72) U/L Alkaline Phosphatase (38-126) U/L Total Creatine Kinase (55-170) U/L CK-MB (Mass) (0.0-3.38) ng/mL Troponin I 1.5000 H* (0.00-0.120) ng/mL Total Protein (6.3-8.3) g/dL Albumin (3.5-5.0) g/dL Globulin (2.2-3.9) gm/dL Albumin/Globulin Ratio (1.0-2.1) Arterial Blood Potassium (3.6-5.2) mmol/L Urine Color (YELLOW) Urine Clarity (Clear) Urine pH (5.0-8.0) Ur Specific [place] (1.003-1.030) Urine Protein (NEGATIVE) mg/dL Urine Glucose (UA) (Normal) mg/dL Urine Ketones (NEGATIVE) mg/dL Urine Blood (NEGATIVE) Urine Nitrate (NEGATIVE) Urine Bilirubin (NEGATIVE) Urine Urobilinogen (0.2-1.0) mg/dL Ur Leukocyte Esterase (Negative) Ana/uL Urine WBC (Auto) (0-5) /hpf Urine RBC (Auto) (0-3) /hpf Urine Bacteria (<OCC) 12/13/17 12/13/17 12/13/17 Range/Units 06:17 05:46 05:45 WBC (4.8-10.8) K/uL RBC (4.40-5.90) Mil/uL Hgb (12.0-18.0) g/dL Hct (35.0-51.0) % MCV (80.0-94.0) fL MCH (27.0-31.0) pg MCHC (33.0-37.0) g/dL RDW (11.5-14.5) % Plt Count (130-400) K/uL MPV (7.2-11.7) fL Neut % (Auto) (50.0-75.0) % Lymph % (Auto) (20.0-40.0) % [place] % (Auto) (0.0-10.0) % Eos % (Auto) (0.0-4.0) % Baso % (Auto) (0.0-2.0) % Neut # (Auto) (1.8-7.0) K/uL Lymph # (Auto) (1.0-4.3) K/uL [place] # (Auto) (0.0-0.8) K/uL Eos # (Auto) (0.0-0.7) K/uL Baso # (Auto) (0.0-0.2) K/uL Neutrophils % (Manual) (50-75) % Band Neutrophils % (0-2) % Lymphocytes % (Manual) (20-40) % Monocytes % (Manual) (0-10) % Platelet Estimate (NORMAL) RBC Morphology APTT (21-34) SECONDS Puncture Site pCO2 (35-45) mm/Hg pO2 (80-100) mm/Hg HCO3 (21-28) mmol/L ABG pH (7.35-7.45) ABG Total CO2 (22-28) mmol/L ABG O2 Saturation (95-98) % ABG Base Excess (-2.0-3.0) mmol/L Maicol Test ABG Potassium (3.6-5.2) mmol/L A-a O2 Difference mm/Hg Respiratory Index Sodium 137 (132-148) mmol/l Chloride 98 (98-107) mmol/L Glucose (75-110) mg/dl Lactate (0.7-2.1) mmol/L Vent Mode Mechanical Rate FiO2 % Tidal Volume PEEP Potassium 5.2 (3.6-5.2) mmol/L Carbon Dioxide 31 H (22-30) mmol/L Anion Gap 13 (10-20) BUN 51 H (9-20) mg/dL Creatinine 1.7 H (0.8-1.5) mg/dL Est GFR ( Amer) 48 Est GFR (Non-Af Amer) 40 POC Glucose (mg/dL) 189 H 44 L (65-110) mg/dL Random Glucose 200 H (75-110) mg/dL Calcium 8.7 (8.6-10.4) mg/dl Phosphorus 4.7 H (2.5-4.5) mg/dL Magnesium 2.3 (1.6-2.3) mg/dL Total Bilirubin 0.7 (0.2-1.3) mg/dL AST 83 H D (17-59) U/L ALT 81 H D (21-72) U/L Alkaline Phosphatase 79 (38-126) U/L Total Creatine Kinase (55-170) U/L CK-MB (Mass) (0.0-3.38) ng/mL Troponin I (0.00-0.120) ng/mL Total Protein 6.9 (6.3-8.3) g/dL Albumin 3.4 L (3.5-5.0) g/dL Globulin 3.5 (2.2-3.9) gm/dL Albumin/Globulin Ratio 1.0 (1.0-2.1) Arterial Blood Potassium (3.6-5.2) mmol/L Urine Color (YELLOW) Urine Clarity (Clear) Urine pH (5.0-8.0) Ur Specific [place] (1.003-1.030) Urine Protein (NEGATIVE) mg/dL Urine Glucose (UA) (Normal) mg/dL Urine Ketones (NEGATIVE) mg/dL Urine Blood (NEGATIVE) Urine Nitrate (NEGATIVE) Urine Bilirubin (NEGATIVE) Urine Urobilinogen (0.2-1.0) mg/dL Ur Leukocyte Esterase (Negative) Ana/uL Urine WBC (Auto) (0-5) /hpf Urine RBC (Auto) (0-3) /hpf Urine Bacteria (<OCC) 12/13/17 12/13/17 12/12/17 Range/Units 05:24 00:26 23:11 WBC (4.8-10.8) K/uL RBC (4.40-5.90) Mil/uL Hgb (12.0-18.0) g/dL Hct (35.0-51.0) % MCV (80.0-94.0) fL MCH (27.0-31.0) pg MCHC (33.0-37.0) g/dL RDW (11.5-14.5) % Plt Count (130-400) K/uL MPV (7.2-11.7) fL Neut % (Auto) (50.0-75.0) % Lymph % (Auto) (20.0-40.0) % [place] % (Auto) (0.0-10.0) % Eos % (Auto) (0.0-4.0) % Baso % (Auto) (0.0-2.0) % Neut # (Auto) (1.8-7.0) K/uL Lymph # (Auto) (1.0-4.3) K/uL [place] # (Auto) (0.0-0.8) K/uL Eos # (Auto) (0.0-0.7) K/uL Baso # (Auto) (0.0-0.2) K/uL Neutrophils % (Manual) (50-75) % Band Neutrophils % (0-2) % Lymphocytes % (Manual) (20-40) % Monocytes % (Manual) (0-10) % Platelet Estimate (NORMAL) RBC Morphology APTT > 400 H* D (21-34) SECONDS Puncture Site [place] pCO2 42 (35-45) mm/Hg pO2 205 H (80-100) mm/Hg HCO3 30.5 H (21-28) mmol/L ABG pH 7.48 H (7.35-7.45) ABG Total CO2 32.6 H (22-28) mmol/L ABG O2 Saturation 99.8 H (95-98) % ABG Base Excess 7.0 H (-2.0-3.0) mmol/L Maicol Test Na ABG Potassium 4.9 (3.6-5.2) mmol/L A-a O2 Difference 170.0 mm/Hg Respiratory Index 0.8 Sodium 134.0 (132-148) mmol/l Chloride 100.0 (98-107) mmol/L Glucose 193 H (75-110) mg/dl Lactate 1.7 (0.7-2.1) mmol/L Vent Mode Prvc Mechanical Rate 16 FiO2 60.0 % Tidal Volume 500 PEEP 5 Potassium (3.6-5.2) mmol/L Carbon Dioxide (22-30) mmol/L Anion Gap (10-20) BUN (9-20) mg/dL Creatinine (0.8-1.5) mg/dL Est GFR ( Amer) Est GFR (Non-Af Amer) POC Glucose (mg/dL) 173 H (65-110) mg/dL Random Glucose (75-110) mg/dL Calcium (8.6-10.4) mg/dl Phosphorus (2.5-4.5) mg/dL Magnesium (1.6-2.3) mg/dL Total Bilirubin (0.2-1.3) mg/dL AST (17-59) U/L ALT (21-72) U/L Alkaline Phosphatase (38-126) U/L Total Creatine Kinase (55-170) U/L CK-MB (Mass) (0.0-3.38) ng/mL Troponin I (0.00-0.120) ng/mL Total Protein (6.3-8.3) g/dL Albumin (3.5-5.0) g/dL Globulin (2.2-3.9) gm/dL Albumin/Globulin Ratio (1.0-2.1) Arterial Blood Potassium 4.9 (3.6-5.2) mmol/L Urine Color (YELLOW) Urine Clarity (Clear) Urine pH (5.0-8.0) Ur Specific [place] (1.003-1.030) Urine Protein (NEGATIVE) mg/dL Urine Glucose (UA) (Normal) mg/dL Urine Ketones (NEGATIVE) mg/dL Urine Blood (NEGATIVE) Urine Nitrate (NEGATIVE) Urine Bilirubin (NEGATIVE) Urine Urobilinogen (0.2-1.0) mg/dL Ur Leukocyte Esterase (Negative) Ana/uL Urine WBC (Auto) (0-5) /hpf Urine RBC (Auto) (0-3) /hpf Urine Bacteria (<OCC) 12/12/17 12/12/17 12/12/17 Range/Units 17:11 16:11 16:11 WBC (4.8-10.8) K/uL RBC (4.40-5.90) Mil/uL Hgb (12.0-18.0) g/dL Hct (35.0-51.0) % MCV (80.0-94.0) fL MCH (27.0-31.0) pg MCHC (33.0-37.0) g/dL RDW (11.5-14.5) % Plt Count (130-400) K/uL MPV (7.2-11.7) fL Neut % (Auto) (50.0-75.0) % Lymph % (Auto) (20.0-40.0) % [place] % (Auto) (0.0-10.0) % Eos % (Auto) (0.0-4.0) % Baso % (Auto) (0.0-2.0) % Neut # (Auto) (1.8-7.0) K/uL Lymph # (Auto) (1.0-4.3) K/uL [place] # (Auto) (0.0-0.8) K/uL Eos # (Auto) (0.0-0.7) K/uL Baso # (Auto) (0.0-0.2) K/uL Neutrophils % (Manual) (50-75) % Band Neutrophils % (0-2) % Lymphocytes % (Manual) (20-40) % Monocytes % (Manual) (0-10) % Platelet Estimate (NORMAL) RBC Morphology APTT 52 H D (21-34) SECONDS Puncture Site pCO2 (35-45) mm/Hg pO2 (80-100) mm/Hg HCO3 (21-28) mmol/L ABG pH (7.35-7.45) ABG Total CO2 (22-28) mmol/L ABG O2 Saturation (95-98) % ABG Base Excess (-2.0-3.0) mmol/L Maicol Test ABG Potassium (3.6-5.2) mmol/L A-a O2 Difference mm/Hg Respiratory Index Sodium (132-148) mmol/l Chloride (98-107) mmol/L Glucose (75-110) mg/dl Lactate (0.7-2.1) mmol/L Vent Mode Mechanical Rate FiO2 % Tidal Volume PEEP Potassium (3.6-5.2) mmol/L Carbon Dioxide (22-30) mmol/L Anion Gap (10-20) BUN (9-20) mg/dL Creatinine (0.8-1.5) mg/dL Est GFR ( Amer) Est GFR (Non-Af Amer) POC Glucose (mg/dL) (65-110) mg/dL Random Glucose (75-110) mg/dL Calcium (8.6-10.4) mg/dl Phosphorus (2.5-4.5) mg/dL Magnesium (1.6-2.3) mg/dL Total Bilirubin (0.2-1.3) mg/dL AST (17-59) U/L ALT (21-72) U/L Alkaline Phosphatase (38-126) U/L Total Creatine Kinase 232 H (55-170) U/L CK-MB (Mass) 8.73 H (0.0-3.38) ng/mL Troponin I 1.6300 H* (0.00-0.120) ng/mL Total Protein (6.3-8.3) g/dL Albumin (3.5-5.0) g/dL Globulin (2.2-3.9) gm/dL Albumin/Globulin Ratio (1.0-2.1) Arterial Blood Potassium (3.6-5.2) mmol/L Urine Color Straw (YELLOW) Urine Clarity Clear (Clear) Urine pH 5.0 (5.0-8.0) Ur Specific [place] 1.006 (1.003-1.030) Urine Protein Negative (NEGATIVE) mg/dL Urine Glucose (UA) Normal (Normal) mg/dL Urine Ketones Negative (NEGATIVE) mg/dL Urine Blood 2+ H (NEGATIVE) Urine Nitrate Negative (NEGATIVE) Urine Bilirubin Negative (NEGATIVE) Urine Urobilinogen Normal (0.2-1.0) mg/dL Ur Leukocyte Esterase Neg (Negative) Ana/uL Urine WBC (Auto) 3 (0-5) /hpf Urine RBC (Auto) 59 H (0-3) /hpf Urine Bacteria Rare (<OCC) 12/12/17 12/12/17 Range/Units 14:23 08:55 WBC (4.8-10.8) K/uL RBC (4.40-5.90) Mil/uL Hgb (12.0-18.0) g/dL Hct (35.0-51.0) % MCV (80.0-94.0) fL MCH (27.0-31.0) pg MCHC (33.0-37.0) g/dL RDW (11.5-14.5) % Plt Count (130-400) K/uL MPV (7.2-11.7) fL Neut % (Auto) (50.0-75.0) % Lymph % (Auto) (20.0-40.0) % [place] % (Auto) (0.0-10.0) % Eos % (Auto) (0.0-4.0) % Baso % (Auto) (0.0-2.0) % Neut # (Auto) (1.8-7.0) K/uL Lymph # (Auto) (1.0-4.3) K/uL [place] # (Auto) (0.0-0.8) K/uL Eos # (Auto) (0.0-0.7) K/uL Baso # (Auto) (0.0-0.2) K/uL Neutrophils % (Manual) (50-75) % Band Neutrophils % (0-2) % Lymphocytes % (Manual) (20-40) % Monocytes % (Manual) (0-10) % Platelet Estimate (NORMAL) RBC Morphology APTT (21-34) SECONDS Puncture Site pCO2 (35-45) mm/Hg pO2 (80-100) mm/Hg HCO3 (21-28) mmol/L ABG pH (7.35-7.45) ABG Total CO2 (22-28) mmol/L ABG O2 Saturation (95-98) % ABG Base Excess (-2.0-3.0) mmol/L Maicol Test ABG Potassium (3.6-5.2) mmol/L A-a O2 Difference mm/Hg Respiratory Index Sodium (132-148) mmol/l Chloride (98-107) mmol/L Glucose (75-110) mg/dl Lactate (0.7-2.1) mmol/L Vent Mode Mechanical Rate FiO2 % Tidal Volume PEEP Potassium (3.6-5.2) mmol/L Carbon Dioxide (22-30) mmol/L Anion Gap (10-20) BUN (9-20) mg/dL Creatinine (0.8-1.5) mg/dL Est GFR ( Amer) Est GFR (Non-Af Amer) POC Glucose (mg/dL) 197 H (65-110) mg/dL Random Glucose (75-110) mg/dL Calcium (8.6-10.4) mg/dl Phosphorus (2.5-4.5) mg/dL Magnesium (1.6-2.3) mg/dL Total Bilirubin (0.2-1.3) mg/dL AST (17-59) U/L ALT (21-72) U/L Alkaline Phosphatase (38-126) U/L Total Creatine Kinase (55-170) U/L CK-MB (Mass) (0.0-3.38) ng/mL Troponin I 0.6560 H* (0.00-0.120) ng/mL Total Protein (6.3-8.3) g/dL Albumin (3.5-5.0) g/dL Globulin (2.2-3.9) gm/dL Albumin/Globulin Ratio (1.0-2.1) Arterial Blood Potassium (3.6-5.2) mmol/L Urine Color (YELLOW) Urine Clarity (Clear) Urine pH (5.0-8.0) Ur Specific [place] (1.003-1.030) Urine Protein (NEGATIVE) mg/dL Urine Glucose (UA) (Normal) mg/dL Urine Ketones (NEGATIVE) mg/dL Urine Blood (NEGATIVE) Urine Nitrate (NEGATIVE) Urine Bilirubin (NEGATIVE) Urine Urobilinogen (0.2-1.0) mg/dL Ur Leukocyte Esterase (Negative) Ana/uL Urine WBC (Auto) (0-5) /hpf Urine RBC (Auto) (0-3) /hpf Urine Bacteria (<OCC) Laboratory Results - last 24 hr 12/12/17 12/12/17 12/12/17 08:55 14:23 16:11 WBC RBC Hgb Hct MCV MCH MCHC RDW Plt Count MPV Neut % (Auto) Lymph % (Auto) [place] % (Auto) Eos % (Auto) Baso % (Auto) Neut # (Auto) Lymph # (Auto) [place] # (Auto) Eos # (Auto) Baso # (Auto) Neutrophils % (Manual) Band Neutrophils % Lymphocytes % (Manual) Monocytes % (Manual) Platelet Estimate RBC Morphology APTT Puncture Site pCO2 pO2 HCO3 ABG pH ABG Total CO2 ABG O2 Saturation ABG Base Excess Maicol Test ABG Potassium A-a O2 Difference Respiratory Index Sodium Chloride Glucose Lactate Vent Mode Mechanical Rate FiO2 Tidal Volume PEEP Potassium Carbon Dioxide Anion Gap BUN Creatinine Est GFR ( Amer) Est GFR (Non-Af Amer) POC Glucose (mg/dL) 197 H Random Glucose Calcium Phosphorus Magnesium Total Bilirubin AST ALT Alkaline Phosphatase Total Creatine Kinase 232 H CK-MB (Mass) 8.73 H Troponin I 0.6560 H* 1.6300 H* Total Protein Albumin Globulin Albumin/Globulin Ratio Arterial Blood Potassium Urine Color Urine Clarity Urine pH Ur Specific [place] Urine Protein Urine Glucose (UA) Urine Ketones Urine Blood Urine Nitrate Urine Bilirubin Urine Urobilinogen Ur Leukocyte Esterase Urine WBC (Auto) Urine RBC (Auto) Urine Bacteria 12/12/17 12/12/17 12/12/17 16:11 17:11 23:11 WBC RBC Hgb Hct MCV MCH MCHC RDW Plt Count MPV Neut % (Auto) Lymph % (Auto) [place] % (Auto) Eos % (Auto) Baso % (Auto) Neut # (Auto) Lymph # (Auto) [place] # (Auto) Eos # (Auto) Baso # (Auto) Neutrophils % (Manual) Band Neutrophils % Lymphocytes % (Manual) Monocytes % (Manual) Platelet Estimate RBC Morphology APTT 52 H D > 400 H* D Puncture Site pCO2 pO2 HCO3 ABG pH ABG Total CO2 ABG O2 Saturation ABG Base Excess Maicol Test ABG Potassium A-a O2 Difference Respiratory Index Sodium Chloride Glucose Lactate Vent Mode Mechanical Rate FiO2 Tidal Volume PEEP Potassium Carbon Dioxide Anion Gap BUN Creatinine Est GFR ( Amer) Est GFR (Non-Af Amer) POC Glucose (mg/dL) Random Glucose Calcium Phosphorus Magnesium Total Bilirubin AST ALT Alkaline Phosphatase Total Creatine Kinase CK-MB (Mass) Troponin I Total Protein Albumin Globulin Albumin/Globulin Ratio Arterial Blood Potassium Urine Color Straw Urine Clarity Clear Urine pH 5.0 Ur Specific [place] 1.006 Urine Protein Negative Urine Glucose (UA) Normal Urine Ketones Negative Urine Blood 2+ H Urine Nitrate Negative Urine Bilirubin Negative Urine Urobilinogen Normal Ur Leukocyte Esterase Neg Urine WBC (Auto) 3 Urine RBC (Auto) 59 H Urine Bacteria Rare 12/13/17 12/13/17 12/13/17 00:26 05:24 05:45 WBC RBC Hgb Hct MCV MCH MCHC RDW Plt Count MPV Neut % (Auto) Lymph % (Auto) [place] % (Auto) Eos % (Auto) Baso % (Auto) Neut # (Auto) Lymph # (Auto) [place] # (Auto) Eos # (Auto) Baso # (Auto) Neutrophils % (Manual) Band Neutrophils % Lymphocytes % (Manual) Monocytes % (Manual) Platelet Estimate RBC Morphology APTT Puncture Site [place] pCO2 42 pO2 205 H HCO3 30.5 H ABG pH 7.48 H ABG Total CO2 32.6 H ABG O2 Saturation 99.8 H ABG Base Excess 7.0 H Maicol Test Na ABG Potassium 4.9 A-a O2 Difference 170.0 Respiratory Index 0.8 Sodium 134.0 Chloride 100.0 Glucose 193 H Lactate 1.7 Vent Mode Prvc Mechanical Rate 16 FiO2 60.0 Tidal Volume 500 PEEP 5 Potassium Carbon Dioxide Anion Gap BUN Creatinine Est GFR ( Amer) Est GFR (Non-Af Amer) POC Glucose (mg/dL) 173 H 44 L Random Glucose Calcium Phosphorus Magnesium Total Bilirubin AST ALT Alkaline Phosphatase Total Creatine Kinase CK-MB (Mass) Troponin I Total Protein Albumin Globulin Albumin/Globulin Ratio Arterial Blood Potassium 4.9 Urine Color Urine Clarity Urine pH Ur Specific [place] Urine Protein Urine Glucose (UA) Urine Ketones Urine Blood Urine Nitrate Urine Bilirubin Urine Urobilinogen Ur Leukocyte Esterase Urine WBC (Auto) Urine RBC (Auto) Urine Bacteria 12/13/17 12/13/17 12/13/17 05:46 06:17 06:17 WBC RBC Hgb Hct MCV MCH MCHC RDW Plt Count MPV Neut % (Auto) Lymph % (Auto) [place] % (Auto) Eos % (Auto) Baso % (Auto) Neut # (Auto) Lymph # (Auto) [place] # (Auto) Eos # (Auto) Baso # (Auto) Neutrophils % (Manual) Band Neutrophils % Lymphocytes % (Manual) Monocytes % (Manual) Platelet Estimate RBC Morphology APTT Puncture Site pCO2 pO2 HCO3 ABG pH ABG Total CO2 ABG O2 Saturation ABG Base Excess Maicol Test ABG Potassium A-a O2 Difference Respiratory Index Sodium 137 Chloride 98 Glucose Lactate Vent Mode Mechanical Rate FiO2 Tidal Volume PEEP Potassium 5.2 Carbon Dioxide 31 H Anion Gap 13 BUN 51 H Creatinine 1.7 H Est GFR ( Amer) 48 Est GFR (Non-Af Amer) 40 POC Glucose (mg/dL) 189 H Random Glucose 200 H Calcium 8.7 Phosphorus 4.7 H Magnesium 2.3 Total Bilirubin 0.7 AST 83 H D ALT 81 H D Alkaline Phosphatase 79 Total Creatine Kinase CK-MB (Mass) Troponin I 1.5000 H* Total Protein 6.9 Albumin 3.4 L Globulin 3.5 Albumin/Globulin Ratio 1.0 Arterial Blood Potassium Urine Color Urine Clarity Urine pH Ur Specific [place] Urine Protein Urine Glucose (UA) Urine Ketones Urine Blood Urine Nitrate Urine Bilirubin Urine Urobilinogen Ur Leukocyte Esterase Urine WBC (Auto) Urine RBC (Auto) Urine Bacteria 12/13/17 12/13/17 06:22 06:39 WBC 15.0 H RBC 5.00 Hgb 14.8 Hct 45.1 MCV 90.2 MCH 29.6 MCHC 32.9 L RDW 14.8 H Plt Count 241 MPV 10.2 Neut % (Auto) 88.8 H Lymph % (Auto) 4.5 L [place] % (Auto) 6.5 Eos % (Auto) 0.0 Baso % (Auto) 0.2 Neut # (Auto) 13.3 H Lymph # (Auto) 0.7 L [place] # (Auto) 1.0 H Eos # (Auto) 0.0 Baso # (Auto) 0.0 Neutrophils % (Manual) 82 H Band Neutrophils % 5 H Lymphocytes % (Manual) 6 L Monocytes % (Manual) 7 Platelet Estimate Normal RBC Morphology Normal APTT 47 H D Puncture Site pCO2 pO2 HCO3 ABG pH ABG Total CO2 ABG O2 Saturation ABG Base Excess Maicol Test ABG Potassium A-a O2 Difference Respiratory Index Sodium Chloride Glucose Lactate Vent Mode Mechanical Rate FiO2 Tidal Volume PEEP Potassium Carbon Dioxide Anion Gap BUN Creatinine Est GFR ( Amer) Est GFR (Non-Af Amer) POC Glucose (mg/dL) Random Glucose Calcium Phosphorus Magnesium Total Bilirubin AST ALT Alkaline Phosphatase Total Creatine Kinase CK-MB (Mass) Troponin I Total Protein Albumin Globulin Albumin/Globulin Ratio Arterial Blood Potassium Urine Color Urine Clarity Urine pH Ur Specific [place] Urine Protein Urine Glucose (UA) Urine Ketones Urine Blood Urine Nitrate Urine Bilirubin Urine Urobilinogen Ur Leukocyte Esterase Urine WBC (Auto) Urine RBC (Auto) Urine Bacteria Fingerstick Blood Sugar Results: 177 Review of Systems - Review of Systems Systems not reviewed;Unavailable: Intubated Critical Care Progress Note - Nutrition Nutrition: Nutrition Category Date Time Status NPO Diet [DIET] Diets 12/12/17 Breakfast Active Assessment/Plan - Assessment and Plan (Free Text) Assessment: 72 M w/ PMHx of [place], Afib, PVD, CHF (EF 15-20%), CAD s/p ACID, who presents to the ICU following positive stress test, contrast induced hypotension during cardiac cath followed by cardiac arrest. Neuro: - Currently sedated on Diprivan - Weaned off sedation this am and patient became agitated Pulm: - Currently on PRVC, patient did not tolerate CPAP this morning - Will wean again as tolerated - maintain SPO2 > 92% CV: - Levophed at 8mcq - maintain MAP> 65 - Cardiology consulted for recs - Cont Amio drip --> 200mg PO daily - Coreg, Lisinopril, Digoxin, and Aldactone all discontinued - Cont Crestor - Continue Heparin ggt - IVF with NS @ 100 - Cont Aspirin daily - F/u echo ordered - Rec AICD/Pacemaker? interrogation GI: - Tube feed - Protonix for ppx - Monitor LFTs - Surg consult: no plan for surgery for hernia at this time as patient is too unstable Renal: - Oligouric CANDIDA probably 2/2 to hypoperfusion during code blue - Cr 1.1 --> 1.7 - Monitor I and O - Replete electrolytes as needed Endo: - Maintain euglycemia ID: - No leukocytosis, afebrile - Ancef x 1 - f/u septic work up GI/DVT ppx Case and plan was reviewed and discussed in detail with Dr Arguello. <Manfred Arguello - Last Filed: 12/13/17 16:16> CCU Objective - Vital Signs / Intake & Output Vital Signs (Last 4 hours): Vital Signs Pulse Resp BP Pulse Ox 12/13/17 15:03 63 16 101/63 95 12/13/17 14:04 65 16 109/64 95 12/13/17 14:00 109/64 12/13/17 13:05 75 14 88/48 L 95 12/13/17 12:24 84 18 129/70 95 Intake and Output (Last 8hrs): Intake & Output 12/13/17 12/13/17 12/13/17 06:59 14:59 22:59 Intake Total 1249.5 1214.3 177.5 Output Total 400 107 16 Balance 849.5 1107.3 161.5 Weight 147 lb 4.8 oz Intake: IV 587 300 Intake, IV Amount 502.5 754.3 157.5 Left Forearm 133.6 66.8 Lfa 50.5 47.9 8.7 Right Distal Port Femoral 131.4 77.1 11.3 Right Medial Port Femoral 127.8 262.5 37.5 Right Proximal Port 59.2 300 100 Femoral Tube Feeding 160 160 20 Output: Urine 400 107 16 Urethral (Mitchell) 400 107 16 - Medications Active Medications: Active Medications Generic Name Dose Route Start Last Admin Trade Name Freq PRN Reason Stop Dose Admin Acetaminophen 650 mg 12/08/17 20:40 Tylenol 325mg Tab PO Q6 PRN Pain, Mild (1-3) Amiodarone HCl 200 mg 12/13/17 11:45 12/13/17 11:34 Cordarone PO 200 mg DAILY ASPEN Administration Aspirin 81 mg 12/09/17 10:00 12/13/17 10:36 Ecotrin PO Not Given DAILY ASPEN Norepinephrine Bitartrate 4 mg 250 mls @ 18.75 mls/hr 12/12/17 08:53 14:00 / Dextrose IV 10 mcg/min .[id number] PRN 37.5 mls/hr TITRATE PER MD ORDER Administration Protocol 5 MCG/MIN Propofol 1,000 mg in 100 mls @ 1.878 mls/hr 12/12/17 09:47 12/13/17 13:13 Diprivan IV 30 mcg/kg/min .Q24H PRN 11.267 mls/hr TITRATE PER MD ORDER Titration Protocol 5 MCG/KG/MIN Amiodarone HCl 900 mg/ 500 mls @ 16.66 mls/hr 12/12/17 17:24 12/12/17 17:36 Dextrose IV 12/13/17 17:22 Not Given .Q24H ONE Protocol 0.5 MG/MIN Sodium Chloride 1,000 mls @ 100 mls/hr 12/13/17 11:15 12/13/17 11:34 Sodium Chloride 0.9% IV 100 mls/hr .Q10H ASPEN Administration Heparin Sodium/Sodium Chloride 25,000 units in 250 mls @ 8.686 mls/hr 14:52 12/13/17 15:02 Heparin 33139 Units/250ml 1/2 Normal Saline IV 13 units/kg/hr .Q24H PRN 8.686 mls/hr ADJUST RATE PER PROTOCOL Administration Protocol 13 UNITS/KG/HR Pantoprazole Sodium 40 mg 12/12/17 11:15 12/13/17 10:51 Protonix Inj IVP 40 mg DAILY ASPEN Administration Rosuvastatin Calcium 5 mg 12/08/17 22:00 12/12/17 21:41 Crestor PO 5 mg HS ASPEN Administration Tamsulosin HCl 0.4 mg 12/12/17 13:30 12/13/17 10:51 Flomax PO 0.4 mg DAILY ASPEN Administration - Patient Studies Lab Studies: Lab Studies 12/13/17 12/13/17 12/13/17 Range/Units 13:07 11:20 06:39 WBC (4.8-10.8) K/uL RBC (4.40-5.90) Mil/uL Hgb (12.0-18.0) g/dL Hct (35.0-51.0) % MCV (80.0-94.0) fL MCH (27.0-31.0) pg MCHC (33.0-37.0) g/dL RDW (11.5-14.5) % Plt Count (130-400) K/uL MPV (7.2-11.7) fL Neut % (Auto) (50.0-75.0) % Lymph % (Auto) (20.0-40.0) % [place] % (Auto) (0.0-10.0) % Eos % (Auto) (0.0-4.0) % Baso % (Auto) (0.0-2.0) % Neut # (Auto) (1.8-7.0) K/uL Lymph # (Auto) (1.0-4.3) K/uL [place] # (Auto) (0.0-0.8) K/uL Eos # (Auto) (0.0-0.7) K/uL Baso # (Auto) (0.0-0.2) K/uL Neutrophils % (Manual) (50-75) % Band Neutrophils % (0-2) % Lymphocytes % (Manual) (20-40) % Monocytes % (Manual) (0-10) % Platelet Estimate (NORMAL) RBC Morphology APTT 26 D 47 H D (21-34) SECONDS Puncture Site pCO2 (35-45) mm/Hg pO2 (80-100) mm/Hg HCO3 (21-28) mmol/L ABG pH (7.35-7.45) ABG Total CO2 (22-28) mmol/L ABG O2 Saturation (95-98) % ABG Base Excess (-2.0-3.0) mmol/L Maicol Test ABG Potassium (3.6-5.2) mmol/L A-a O2 Difference mm/Hg Respiratory Index Sodium (132-148) mmol/l Chloride (98-107) mmol/L Glucose (75-110) mg/dl Lactate (0.7-2.1) mmol/L Vent Mode Mechanical Rate FiO2 % Tidal Volume PEEP Potassium (3.6-5.2) mmol/L Carbon Dioxide (22-30) mmol/L Anion Gap (10-20) BUN (9-20) mg/dL Creatinine (0.8-1.5) mg/dL Est GFR ( Amer) Est GFR (Non-Af Amer) POC Glucose (mg/dL) 177 H (65-110) mg/dL Random Glucose (75-110) mg/dL Calcium (8.6-10.4) mg/dl Phosphorus (2.5-4.5) mg/dL Magnesium (1.6-2.3) mg/dL Total Bilirubin (0.2-1.3) mg/dL AST (17-59) U/L ALT (21-72) U/L Alkaline Phosphatase (38-126) U/L Total Creatine Kinase (55-170) U/L CK-MB (Mass) (0.0-3.38) ng/mL Troponin I (0.00-0.120) ng/mL Total Protein (6.3-8.3) g/dL Albumin (3.5-5.0) g/dL Globulin (2.2-3.9) gm/dL Albumin/Globulin Ratio (1.0-2.1) Arterial Blood Potassium (3.6-5.2) mmol/L Urine Color (YELLOW) Urine Clarity (Clear) Urine pH (5.0-8.0) Ur Specific [place] (1.003-1.030) Urine Protein (NEGATIVE) mg/dL Urine Glucose (UA) (Normal) mg/dL Urine Ketones (NEGATIVE) mg/dL Urine Blood (NEGATIVE) Urine Nitrate (NEGATIVE) Urine Bilirubin (NEGATIVE) Urine Urobilinogen (0.2-1.0) mg/dL Ur Leukocyte Esterase (Negative) Ana/uL Urine WBC (Auto) (0-5) /hpf Urine RBC (Auto) (0-3) /hpf Urine Bacteria (<OCC) 12/13/17 12/13/17 12/13/17 Range/Units 06:22 06:17 06:17 WBC 15.0 H (4.8-10.8) K/uL RBC 5.00 (4.40-5.90) Mil/uL Hgb 14.8 (12.0-18.0) g/dL Hct 45.1 (35.0-51.0) % MCV 90.2 (80.0-94.0) fL MCH 29.6 (27.0-31.0) pg MCHC 32.9 L (33.0-37.0) g/dL RDW 14.8 H (11.5-14.5) % Plt Count 241 (130-400) K/uL MPV 10.2 (7.2-11.7) fL Neut % (Auto) 88.8 H (50.0-75.0) % Lymph % (Auto) 4.5 L (20.0-40.0) % [place] % (Auto) 6.5 (0.0-10.0) % Eos % (Auto) 0.0 (0.0-4.0) % Baso % (Auto) 0.2 (0.0-2.0) % Neut # (Auto) 13.3 H (1.8-7.0) K/uL Lymph # (Auto) 0.7 L (1.0-4.3) K/uL [place] # (Auto) 1.0 H (0.0-0.8) K/uL Eos # (Auto) 0.0 (0.0-0.7) K/uL Baso # (Auto) 0.0 (0.0-0.2) K/uL Neutrophils % (Manual) 82 H (50-75) % Band Neutrophils % 5 H (0-2) % Lymphocytes % (Manual) 6 L (20-40) % Monocytes % (Manual) 7 (0-10) % Platelet Estimate Normal (NORMAL) RBC Morphology Normal APTT (21-34) SECONDS Puncture Site pCO2 (35-45) mm/Hg pO2 (80-100) mm/Hg HCO3 (21-28) mmol/L ABG pH (7.35-7.45) ABG Total CO2 (22-28) mmol/L ABG O2 Saturation (95-98) % ABG Base Excess (-2.0-3.0) mmol/L Maicol Test ABG Potassium (3.6-5.2) mmol/L A-a O2 Difference mm/Hg Respiratory Index Sodium 137 (132-148) mmol/l Chloride 98 (98-107) mmol/L Glucose (75-110) mg/dl Lactate (0.7-2.1) mmol/L Vent Mode Mechanical Rate FiO2 % Tidal Volume PEEP Potassium 5.2 (3.6-5.2) mmol/L Carbon Dioxide 31 H (22-30) mmol/L Anion Gap 13 (10-20) BUN 51 H (9-20) mg/dL Creatinine 1.7 H (0.8-1.5) mg/dL Est GFR ( Amer) 48 Est GFR (Non-Af Amer) 40 POC Glucose (mg/dL) (65-110) mg/dL Random Glucose 200 H (75-110) mg/dL Calcium 8.7 (8.6-10.4) mg/dl Phosphorus 4.7 H (2.5-4.5) mg/dL Magnesium 2.3 (1.6-2.3) mg/dL Total Bilirubin 0.7 (0.2-1.3) mg/dL AST 83 H D (17-59) U/L ALT 81 H D (21-72) U/L Alkaline Phosphatase 79 (38-126) U/L Total Creatine Kinase (55-170) U/L CK-MB (Mass) (0.0-3.38) ng/mL Troponin I 1.5000 H* (0.00-0.120) ng/mL Total Protein 6.9 (6.3-8.3) g/dL Albumin 3.4 L (3.5-5.0) g/dL Globulin 3.5 (2.2-3.9) gm/dL Albumin/Globulin Ratio 1.0 (1.0-2.1) Arterial Blood Potassium (3.6-5.2) mmol/L Urine Color (YELLOW) Urine Clarity (Clear) Urine pH (5.0-8.0) Ur Specific [place] (1.003-1.030) Urine Protein (NEGATIVE) mg/dL Urine Glucose (UA) (Normal) mg/dL Urine Ketones (NEGATIVE) mg/dL Urine Blood (NEGATIVE) Urine Nitrate (NEGATIVE) Urine Bilirubin (NEGATIVE) Urine Urobilinogen (0.2-1.0) mg/dL Ur Leukocyte Esterase (Negative) Ana/uL Urine WBC (Auto) (0-5) /hpf Urine RBC (Auto) (0-3) /hpf Urine Bacteria (<OCC) 12/13/17 12/13/17 12/13/17 Range/Units 05:46 05:45 05:24 WBC (4.8-10.8) K/uL RBC (4.40-5.90) Mil/uL Hgb (12.0-18.0) g/dL Hct (35.0-51.0) % MCV (80.0-94.0) fL MCH (27.0-31.0) pg MCHC (33.0-37.0) g/dL RDW (11.5-14.5) % Plt Count (130-400) K/uL MPV (7.2-11.7) fL Neut % (Auto) (50.0-75.0) % Lymph % (Auto) (20.0-40.0) % [place] % (Auto) (0.0-10.0) % Eos % (Auto) (0.0-4.0) % Baso % (Auto) (0.0-2.0) % Neut # (Auto) (1.8-7.0) K/uL Lymph # (Auto) (1.0-4.3) K/uL [place] # (Auto) (0.0-0.8) K/uL Eos # (Auto) (0.0-0.7) K/uL Baso # (Auto) (0.0-0.2) K/uL Neutrophils % (Manual) (50-75) % Band Neutrophils % (0-2) % Lymphocytes % (Manual) (20-40) % Monocytes % (Manual) (0-10) % Platelet Estimate (NORMAL) RBC Morphology APTT (21-34) SECONDS Puncture Site [place] pCO2 42 (35-45) mm/Hg pO2 205 H (80-100) mm/Hg HCO3 30.5 H (21-28) mmol/L ABG pH 7.48 H (7.35-7.45) ABG Total CO2 32.6 H (22-28) mmol/L ABG O2 Saturation 99.8 H (95-98) % ABG Base Excess 7.0 H (-2.0-3.0) mmol/L Maicol Test Na ABG Potassium 4.9 (3.6-5.2) mmol/L A-a O2 Difference 170.0 mm/Hg Respiratory Index 0.8 Sodium 134.0 (132-148) mmol/l Chloride 100.0 (98-107) mmol/L Glucose 193 H (75-110) mg/dl Lactate 1.7 (0.7-2.1) mmol/L Vent Mode Prvc Mechanical Rate 16 FiO2 60.0 % Tidal Volume 500 PEEP 5 Potassium (3.6-5.2) mmol/L Carbon Dioxide (22-30) mmol/L Anion Gap (10-20) BUN (9-20) mg/dL Creatinine (0.8-1.5) mg/dL Est GFR ( Amer) Est GFR (Non-Af Amer) POC Glucose (mg/dL) 189 H 44 L (65-110) mg/dL Random Glucose (75-110) mg/dL Calcium (8.6-10.4) mg/dl Phosphorus (2.5-4.5) mg/dL Magnesium (1.6-2.3) mg/dL Total Bilirubin (0.2-1.3) mg/dL AST (17-59) U/L ALT (21-72) U/L Alkaline Phosphatase (38-126) U/L Total Creatine Kinase (55-170) U/L CK-MB (Mass) (0.0-3.38) ng/mL Troponin I (0.00-0.120) ng/mL Total Protein (6.3-8.3) g/dL Albumin (3.5-5.0) g/dL Globulin (2.2-3.9) gm/dL Albumin/Globulin Ratio (1.0-2.1) Arterial Blood Potassium 4.9 (3.6-5.2) mmol/L Urine Color (YELLOW) Urine Clarity (Clear) Urine pH (5.0-8.0) Ur Specific [place] (1.003-1.030) Urine Protein (NEGATIVE) mg/dL Urine Glucose (UA) (Normal) mg/dL Urine Ketones (NEGATIVE) mg/dL Urine Blood (NEGATIVE) Urine Nitrate (NEGATIVE) Urine Bilirubin (NEGATIVE) Urine Urobilinogen (0.2-1.0) mg/dL Ur Leukocyte Esterase (Negative) Ana/uL Urine WBC (Auto) (0-5) /hpf Urine RBC (Auto) (0-3) /hpf Urine Bacteria (<OCC) 12/13/17 12/12/17 12/12/17 Range/Units 00:26 23:11 17:11 WBC (4.8-10.8) K/uL RBC (4.40-5.90) Mil/uL Hgb (12.0-18.0) g/dL Hct (35.0-51.0) % MCV (80.0-94.0) fL MCH (27.0-31.0) pg MCHC (33.0-37.0) g/dL RDW (11.5-14.5) % Plt Count (130-400) K/uL MPV (7.2-11.7) fL Neut % (Auto) (50.0-75.0) % Lymph % (Auto) (20.0-40.0) % [place] % (Auto) (0.0-10.0) % Eos % (Auto) (0.0-4.0) % Baso % (Auto) (0.0-2.0) % Neut # (Auto) (1.8-7.0) K/uL Lymph # (Auto) (1.0-4.3) K/uL [place] # (Auto) (0.0-0.8) K/uL Eos # (Auto) (0.0-0.7) K/uL Baso # (Auto) (0.0-0.2) K/uL Neutrophils % (Manual) (50-75) % Band Neutrophils % (0-2) % Lymphocytes % (Manual) (20-40) % Monocytes % (Manual) (0-10) % Platelet Estimate (NORMAL) RBC Morphology APTT > 400 H* D 52 H D (21-34) SECONDS Puncture Site pCO2 (35-45) mm/Hg pO2 (80-100) mm/Hg HCO3 (21-28) mmol/L ABG pH (7.35-7.45) ABG Total CO2 (22-28) mmol/L ABG O2 Saturation (95-98) % ABG Base Excess (-2.0-3.0) mmol/L Maicol Test ABG Potassium (3.6-5.2) mmol/L A-a O2 Difference mm/Hg Respiratory Index Sodium (132-148) mmol/l Chloride (98-107) mmol/L Glucose (75-110) mg/dl Lactate (0.7-2.1) mmol/L Vent Mode Mechanical Rate FiO2 % Tidal Volume PEEP Potassium (3.6-5.2) mmol/L Carbon Dioxide (22-30) mmol/L Anion Gap (10-20) BUN (9-20) mg/dL Creatinine (0.8-1.5) mg/dL Est GFR ( Amer) Est GFR (Non-Af Amer) POC Glucose (mg/dL) 173 H (65-110) mg/dL Random Glucose (75-110) mg/dL Calcium (8.6-10.4) mg/dl Phosphorus (2.5-4.5) mg/dL Magnesium (1.6-2.3) mg/dL Total Bilirubin (0.2-1.3) mg/dL AST (17-59) U/L ALT (21-72) U/L Alkaline Phosphatase (38-126) U/L Total Creatine Kinase (55-170) U/L CK-MB (Mass) (0.0-3.38) ng/mL Troponin I (0.00-0.120) ng/mL Total Protein (6.3-8.3) g/dL Albumin (3.5-5.0) g/dL Globulin (2.2-3.9) gm/dL Albumin/Globulin Ratio (1.0-2.1) Arterial Blood Potassium (3.6-5.2) mmol/L Urine Color (YELLOW) Urine Clarity (Clear) Urine pH (5.0-8.0) Ur Specific [place] (1.003-1.030) Urine Protein (NEGATIVE) mg/dL Urine Glucose (UA) (Normal) mg/dL Urine Ketones (NEGATIVE) mg/dL Urine Blood (NEGATIVE) Urine Nitrate (NEGATIVE) Urine Bilirubin (NEGATIVE) Urine Urobilinogen (0.2-1.0) mg/dL Ur Leukocyte Esterase (Negative) Ana/uL Urine WBC (Auto) (0-5) /hpf Urine RBC (Auto) (0-3) /hpf Urine Bacteria (<OCC) 12/12/17 12/12/17 Range/Units 16:11 16:11 WBC (4.8-10.8) K/uL RBC (4.40-5.90) Mil/uL Hgb (12.0-18.0) g/dL Hct (35.0-51.0) % MCV (80.0-94.0) fL MCH (27.0-31.0) pg MCHC (33.0-37.0) g/dL RDW (11.5-14.5) % Plt Count (130-400) K/uL MPV (7.2-11.7) fL Neut % (Auto) (50.0-75.0) % Lymph % (Auto) (20.0-40.0) % [place] % (Auto) (0.0-10.0) % Eos % (Auto) (0.0-4.0) % Baso % (Auto) (0.0-2.0) % Neut # (Auto) (1.8-7.0) K/uL Lymph # (Auto) (1.0-4.3) K/uL [place] # (Auto) (0.0-0.8) K/uL Eos # (Auto) (0.0-0.7) K/uL Baso # (Auto) (0.0-0.2) K/uL Neutrophils % (Manual) (50-75) % Band Neutrophils % (0-2) % Lymphocytes % (Manual) (20-40) % Monocytes % (Manual) (0-10) % Platelet Estimate (NORMAL) RBC Morphology APTT (21-34) SECONDS Puncture Site pCO2 (35-45) mm/Hg pO2 (80-100) mm/Hg HCO3 (21-28) mmol/L ABG pH (7.35-7.45) ABG Total CO2 (22-28) mmol/L ABG O2 Saturation (95-98) % ABG Base Excess (-2.0-3.0) mmol/L Maicol Test ABG Potassium (3.6-5.2) mmol/L A-a O2 Difference mm/Hg Respiratory Index Sodium (132-148) mmol/l Chloride (98-107) mmol/L Glucose (75-110) mg/dl Lactate (0.7-2.1) mmol/L Vent Mode Mechanical Rate FiO2 % Tidal Volume PEEP Potassium (3.6-5.2) mmol/L Carbon Dioxide (22-30) mmol/L Anion Gap (10-20) BUN (9-20) mg/dL Creatinine (0.8-1.5) mg/dL Est GFR ( Amer) Est GFR (Non-Af Amer) POC Glucose (mg/dL) (65-110) mg/dL Random Glucose (75-110) mg/dL Calcium (8.6-10.4) mg/dl Phosphorus (2.5-4.5) mg/dL Magnesium (1.6-2.3) mg/dL Total Bilirubin (0.2-1.3) mg/dL AST (17-59) U/L ALT (21-72) U/L Alkaline Phosphatase (38-126) U/L Total Creatine Kinase 232 H (55-170) U/L CK-MB (Mass) 8.73 H (0.0-3.38) ng/mL Troponin I 1.6300 H* (0.00-0.120) ng/mL Total Protein (6.3-8.3) g/dL Albumin (3.5-5.0) g/dL Globulin (2.2-3.9) gm/dL Albumin/Globulin Ratio (1.0-2.1) Arterial Blood Potassium (3.6-5.2) mmol/L Urine Color Straw (YELLOW) Urine Clarity Clear (Clear) Urine pH 5.0 (5.0-8.0) Ur Specific [place] 1.006 (1.003-1.030) Urine Protein Negative (NEGATIVE) mg/dL Urine Glucose (UA) Normal (Normal) mg/dL Urine Ketones Negative (NEGATIVE) mg/dL Urine Blood 2+ H (NEGATIVE) Urine Nitrate Negative (NEGATIVE) Urine Bilirubin Negative (NEGATIVE) Urine Urobilinogen Normal (0.2-1.0) mg/dL Ur Leukocyte Esterase Neg (Negative) Ana/uL Urine WBC (Auto) 3 (0-5) /hpf Urine RBC (Auto) 59 H (0-3) /hpf Urine Bacteria Rare (<OCC) Laboratory Results - last 24 hr 12/12/17 12/12/17 12/12/17 16:11 16:11 17:11 WBC RBC Hgb Hct MCV MCH MCHC RDW Plt Count MPV Neut % (Auto) Lymph % (Auto) [place] % (Auto) Eos % (Auto) Baso % (Auto) Neut # (Auto) Lymph # (Auto) [place] # (Auto) Eos # (Auto) Baso # (Auto) Neutrophils % (Manual) Band Neutrophils % Lymphocytes % (Manual) Monocytes % (Manual) Platelet Estimate RBC Morphology APTT 52 H D Puncture Site pCO2 pO2 HCO3 ABG pH ABG Total CO2 ABG O2 Saturation ABG Base Excess Maicol Test ABG Potassium A-a O2 Difference Respiratory Index Sodium Chloride Glucose Lactate Vent Mode Mechanical Rate FiO2 Tidal Volume PEEP Potassium Carbon Dioxide Anion Gap BUN Creatinine Est GFR ( Amer) Est GFR (Non-Af Amer) POC Glucose (mg/dL) Random Glucose Calcium Phosphorus Magnesium Total Bilirubin AST ALT Alkaline Phosphatase Total Creatine Kinase 232 H CK-MB (Mass) 8.73 H Troponin I 1.6300 H* Total Protein Albumin Globulin Albumin/Globulin Ratio Arterial Blood Potassium Urine Color Straw Urine Clarity Clear Urine pH 5.0 Ur Specific [place] 1.006 Urine Protein Negative Urine Glucose (UA) Normal Urine Ketones Negative Urine Blood 2+ H Urine Nitrate Negative Urine Bilirubin Negative Urine Urobilinogen Normal Ur Leukocyte Esterase Neg Urine WBC (Auto) 3 Urine RBC (Auto) 59 H Urine Bacteria Rare 12/12/17 12/13/17 12/13/17 23:11 00:26 05:24 WBC RBC Hgb Hct MCV MCH MCHC RDW Plt Count MPV Neut % (Auto) Lymph % (Auto) [place] % (Auto) Eos % (Auto) Baso % (Auto) Neut # (Auto) Lymph # (Auto) [place] # (Auto) Eos # (Auto) Baso # (Auto) Neutrophils % (Manual) Band Neutrophils % Lymphocytes % (Manual) Monocytes % (Manual) Platelet Estimate RBC Morphology APTT > 400 H* D Puncture Site [place] pCO2 42 pO2 205 H HCO3 30.5 H ABG pH 7.48 H ABG Total CO2 32.6 H ABG O2 Saturation 99.8 H ABG Base Excess 7.0 H Maicol Test Na ABG Potassium 4.9 A-a O2 Difference 170.0 Respiratory Index 0.8 Sodium 134.0 Chloride 100.0 Glucose 193 H Lactate 1.7 Vent Mode Prvc Mechanical Rate 16 FiO2 60.0 Tidal Volume 500 PEEP 5 Potassium Carbon Dioxide Anion Gap BUN Creatinine Est GFR ( Amer) Est GFR (Non-Af Amer) POC Glucose (mg/dL) 173 H Random Glucose Calcium Phosphorus Magnesium Total Bilirubin AST ALT Alkaline Phosphatase Total Creatine Kinase CK-MB (Mass) Troponin I Total Protein Albumin Globulin Albumin/Globulin Ratio Arterial Blood Potassium 4.9 Urine Color Urine Clarity Urine pH Ur Specific [place] Urine Protein Urine Glucose (UA) Urine Ketones Urine Blood Urine Nitrate Urine Bilirubin Urine Urobilinogen Ur Leukocyte Esterase Urine WBC (Auto) Urine RBC (Auto) Urine Bacteria 12/13/17 12/13/17 12/13/17 05:45 05:46 06:17 WBC RBC Hgb Hct MCV MCH MCHC RDW Plt Count MPV Neut % (Auto) Lymph % (Auto) [place] % (Auto) Eos % (Auto) Baso % (Auto) Neut # (Auto) Lymph # (Auto) [place] # (Auto) Eos # (Auto) Baso # (Auto) Neutrophils % (Manual) Band Neutrophils % Lymphocytes % (Manual) Monocytes % (Manual) Platelet Estimate RBC Morphology APTT Puncture Site pCO2 pO2 HCO3 ABG pH ABG Total CO2 ABG O2 Saturation ABG Base Excess Maicol Test ABG Potassium A-a O2 Difference Respiratory Index Sodium 137 Chloride 98 Glucose Lactate Vent Mode Mechanical Rate FiO2 Tidal Volume PEEP Potassium 5.2 Carbon Dioxide 31 H Anion Gap 13 BUN 51 H Creatinine 1.7 H Est GFR ( Amer) 48 Est GFR (Non-Af Amer) 40 POC Glucose (mg/dL) 44 L 189 H Random Glucose 200 H Calcium 8.7 Phosphorus 4.7 H Magnesium 2.3 Total Bilirubin 0.7 AST 83 H D ALT 81 H D Alkaline Phosphatase 79 Total Creatine Kinase CK-MB (Mass) Troponin I Total Protein 6.9 Albumin 3.4 L Globulin 3.5 Albumin/Globulin Ratio 1.0 Arterial Blood Potassium Urine Color Urine Clarity Urine pH Ur Specific [place] Urine Protein Urine Glucose (UA) Urine Ketones Urine Blood Urine Nitrate Urine Bilirubin Urine Urobilinogen Ur Leukocyte Esterase Urine WBC (Auto) Urine RBC (Auto) Urine Bacteria 12/13/17 12/13/17 12/13/17 06:17 06:22 06:39 WBC 15.0 H RBC 5.00 Hgb 14.8 Hct 45.1 MCV 90.2 MCH 29.6 MCHC 32.9 L RDW 14.8 H Plt Count 241 MPV 10.2 Neut % (Auto) 88.8 H Lymph % (Auto) 4.5 L [place] % (Auto) 6.5 Eos % (Auto) 0.0 Baso % (Auto) 0.2 Neut # (Auto) 13.3 H Lymph # (Auto) 0.7 L [place] # (Auto) 1.0 H Eos # (Auto) 0.0 Baso # (Auto) 0.0 Neutrophils % (Manual) 82 H Band Neutrophils % 5 H Lymphocytes % (Manual) 6 L Monocytes % (Manual) 7 Platelet Estimate Normal RBC Morphology Normal APTT 47 H D Puncture Site pCO2 pO2 HCO3 ABG pH ABG Total CO2 ABG O2 Saturation ABG Base Excess Maicol Test ABG Potassium A-a O2 Difference Respiratory Index Sodium Chloride Glucose Lactate Vent Mode Mechanical Rate FiO2 Tidal Volume PEEP Potassium Carbon Dioxide Anion Gap BUN Creatinine Est GFR ( Amer) Est GFR (Non-Af Amer) POC Glucose (mg/dL) Random Glucose Calcium Phosphorus Magnesium Total Bilirubin AST ALT Alkaline Phosphatase Total Creatine Kinase CK-MB (Mass) Troponin I 1.5000 H* Total Protein Albumin Globulin Albumin/Globulin Ratio Arterial Blood Potassium Urine Color Urine Clarity Urine pH Ur Specific [place] Urine Protein Urine Glucose (UA) Urine Ketones Urine Blood Urine Nitrate Urine Bilirubin Urine Urobilinogen Ur Leukocyte Esterase Urine WBC (Auto) Urine RBC (Auto) Urine Bacteria 12/13/17 12/13/17 11:20 13:07 WBC RBC Hgb Hct MCV MCH MCHC RDW Plt Count MPV Neut % (Auto) Lymph % (Auto) [place] % (Auto) Eos % (Auto) Baso % (Auto) Neut # (Auto) Lymph # (Auto) [place] # (Auto) Eos # (Auto) Baso # (Auto) Neutrophils % (Manual) Band Neutrophils % Lymphocytes % (Manual) Monocytes % (Manual) Platelet Estimate RBC Morphology APTT 26 D Puncture Site pCO2 pO2 HCO3 ABG pH ABG Total CO2 ABG O2 Saturation ABG Base Excess Maicol Test ABG Potassium A-a O2 Difference Respiratory Index Sodium Chloride Glucose Lactate Vent Mode Mechanical Rate FiO2 Tidal Volume PEEP Potassium Carbon Dioxide Anion Gap BUN Creatinine Est GFR ( Amer) Est GFR (Non-Af Amer) POC Glucose (mg/dL) 177 H Random Glucose Calcium Phosphorus Magnesium Total Bilirubin AST ALT Alkaline Phosphatase Total Creatine Kinase CK-MB (Mass) Troponin I Total Protein Albumin Globulin Albumin/Globulin Ratio Arterial Blood Potassium Urine Color Urine Clarity Urine pH Ur Specific [place] Urine Protein Urine Glucose (UA) Urine Ketones Urine Blood Urine Nitrate Urine Bilirubin Urine Urobilinogen Ur Leukocyte Esterase Urine WBC (Auto) Urine RBC (Auto) Urine Bacteria Critical Care Progress Note - Nutrition Nutrition: Nutrition Category Date Time Status NPO Diet [DIET] Diets 12/12/17 Breakfast Active Attending/Attestation - Attestation I have personally seen and examined this patient.: Yes I have fully participated in the care of the patient.: Yes I have reviewed all pertinent clinical information: Yes Notes (Text): 12/13/17 16:12 I have seen and examined the patient. Medical records, lab studies, and imaging were reviewed by me and a management plan was formulated on multidisciplinary rounds with resident Dr. Salinas. I agree with their documented assessment and plan. Patient is alert on vent, not tolerating PS trials. f/u echo, in cardiogenic shock on levophed. Transitioned to oral Amiodarone for rhythm control after recent Vfib arrest. Oliguric CANDIDA, starting fluids and albumin drip. Critical Care Time 35 minutes. Multi-disciplinary rounds were performed with house staff, nursing, speech therapy, respiratory therapy, pharmacy and nutrition with integrated input from the primary team/attending and other consulting services. The documented time is cumulative and includes review of patient data/exams/labs/chart review and examination of the patient on rounds and throughout the day; time is exclusive of any procedures or teaching time. 12/13/17 16:15
[2017-12-13] MEDS: Heparin25000 units/250ml 1/2NS 25,000 UNITS/250 ML BAG IV PRN (15:02)
[2017-12-13] MEDS ORDERED: Albumin Human 5% (12.5 gm/250 ml) IV ONE (16:13)
[2017-12-13] MEDS: Sodium Chloride 0.9% 1,000 ML IV SCH (16:30)
--- NOTE | 2017-12-13 16:48 | RAD ---
Date of service: 12/13/2017 HISTORY: intubated COMPARISON: 12/12/2017 FINDINGS: LUNGS: Left inferolateral pleural thickening/opacity suggested. The integrity of the ribs here is indeterminate correlate clinically in terms of excluding and/or acknowledging any known rib fractures here. PLEURA: Left inferolateral pleural thickening -slightly increased in conspicuity. The left costophrenic angle is not the further blunted. Tiny bilateral pleural effusions are probable. No worsening effusion suggested. No pneumothorax apparent. CARDIOVASCULAR: Cardiomegaly similar. Pulmonary venous congestion -slightly less than before. OSSEOUS STRUCTURES: No significant abnormalities. VISUALIZED UPPER ABDOMEN: Normal. OTHER FINDINGS: Endotracheal tube tip retracted. Probably at least 1 cm proximal to the althea Concomitant nasogastric tube in place tip courses over expected stomach Position/ configuration of pacemaker IMPRESSION: Interval retraction of the endotracheal tube now appears above the althea. Other support lines appear satisfactory as above. Left inferolateral pleural based opacity pleural thickening here consideration. The integrity of the contiguous rib series indeterminate an its chronicity is unknown. Clinical correlation here is essential. No pneumothorax appreciated. Other findings as above.
--- NOTE | 2017-12-13 17:05 | RAD ---
Date of service: 12/13/2017 HISTORY: r/o aspirations COMPARISON: 12/13/2017 at 0654 hours current study same date 1334 hour FINDINGS: LUNGS: The left inferolateral pleural based opacity is slightly more radiolucent in appearance compared the prior studies of chronic left pleural reaction here suspect. No interval increasing left pleural effusion noted. As mentioned previously in the regional integrity of the left ribs which are osteopenic here is unclear specifically designed for unknown if patient has had any known left rib fractures here vessels any known chronicity. Slight increased air bronchograms suspect right infrahilar lung base developing aspiration here is a consideration. The strandy left medial infrahilar bronchovascular markings are also slightly increased in conspicuity some element of chronicity here are worse likely. PLEURA: No significant interval pleural effusion identified,. Left inferolateral pleural thickening reaction renoted as referenced above and on prior exam no pneumothorax apparent. CARDIOVASCULAR: Mild cardiomegaly. Pulmonary venous congestion suspect OSSEOUS STRUCTURES: No significant abnormalities. VISUALIZED UPPER ABDOMEN: Normal. OTHER FINDINGS: Endotracheal tube above the althea. NG tube coursing in stomach. Position/ configuration of pacemaker IMPRESSION: Probable bibasilar patchy infiltrates with or without atelectasis clinical history suspect for aspirations and compatible with this. The left inferolateral pleural based opacity is renoted the integrity of contiguous left ribs which are osteopenic here is also unclear. As before clinical correlation here is essential. No pneumothorax noted. Other findings as above.
[2017-12-14] MEDS: Propofol 10 mg/ml 1,000 MG/100 ML VIAL IV PRN ×4 (02:10→19:10)
[2017-12-14] MEDS: Sodium Chloride 0.9% 1,000 ML IV SCH ×2 (05:32→19:47)
[2017-12-14 05:36] LABS: ARTERIAL BLOOD GAS HCO3 27.4 mmol/L (21-28); ARTERIAL BLOOD GAS O2 SAT 99.4 % (95-98); ARTERIAL BLOOD GAS PCO2 51 mm/Hg (35-45); ARTERIAL BLOOD GAS PH 7.37 (7.35-7.45); ARTERIAL BLOOD GAS PO2 159 mm/Hg (80-100); ARTERIAL BLOOD GAS TCO2 31.1 mmol/L (22-28)
[2017-12-14 06:26] LABS: BASO % 0.3 % (0.0-2.0); HEMOGLOBIN 12.6 g/dL (12.0-18.0); LYMPH # 0.6 K/uL (1.0-4.3); LYMPH % 3.9 % (20.0-40.0); MEAN CELL VOLUME 89.2 fL (80.0-94.0); MEAN CORPUSCULAR HEMOGLOBIN 30.1 pg (27.0-31.0); MEAN CORPUSCULAR HGB CONC 33.7 g/dL (33.0-37.0); MEAN PLATELET VOLUME 10.3 fL (7.2-11.7); MONO # 1.6 K/uL (0.0-0.8); MONO % 10.1 % (0.0-10.0); NEUT # 13.7 K/uL (1.8-7.0); NEUT % 85.7 % (50.0-75.0); PLATELET COUNT 169 K/uL (130-400); RED CELL DISTRIBUTION WIDTH 14.2 % (11.5-14.5)
[2017-12-14] MEDS: Norepinephrine 4 MG in Dextrose 5% In Water 246 ML IV PRN (06:31)
[2017-12-14 06:49] LABS: ALB/GLOB RATIO 1.1 (1.0-2.1); ALBUMIN 3.3 g/dL (3.5-5.0); CALCIUM 7.8 mg/dl (8.6-10.4)
[2017-12-14 08:21] LABS: ANISOCYTOSIS SLIGHT; BANDS 2 % (0-2); BASOPHIL 1 % (0-2); HYPOCHROMIC SLIGHT; LYMPHOCYTE 4 % (20-40); MONOCYTE 9 % (0-10); NEUTROPHIL 84 % (50-75); PLATELET ESTIMATE NORMAL (NORMAL); POIKILOCYTOSIS SLIGHT; TOTAL CELLS COUNTED 100
[2017-12-14 08:22] LABS: OVALOCYTES SLIGHT
--- NOTE | 2017-12-14 08:31 | CARD ---
APPROVED REPORT Date of service: 12/13/2017 EXAM: Two-dimensional and M-mode echocardiogram with Doppler and color Doppler. INDICATION Dyspnea Congestive Heart Failure 2D DIMENSIONS IVSd1.8 (0.7-1.1cm)LVDd6.3 (3.9-5.9cm) PWd1.3 (0.7-1.1cm)LVDs5.8 (2.5-4.0cm) FS (%) 7.2 %LVEF (%)15.6 (>50%) M-Mode DIMENSIONS Left Atrium (MM)4.01 (2.5-4.0cm)Aortic Root3.55 (2.2-3.7cm) Aortic Cusp Exc.1.98 (1.5-2.0cm)TAPSE9.11 cm Mitral Valve MV E Gafqtiqt74.3cm/sE/A ratio0.0 TDI E/Lateral E'0.0E/Medial E'0.0 Tricuspid Valve TR Peak [id number]/sTR Peak Gr.[id number] LEFT VENTRICLE The Left Ventricle is moderately dilated. Smoke noted in the left ventricle. There is normal left ventricular wall thickness. Left ventricle systolic function is severely impaired. The Ejection Fraction is 15-20%. Smoke noted in the left ventricle. There is severe global hypokinesis of the left ventricle. The left ventricular diastolic function is normal. No left ventricle thrombus noted on this study. RIGHT VENTRICLE The right ventricle is normal size. There is normal right ventricular wall thickness. Systolic function is severely reduced. There is a pacemaker lead in the right ventricle. ATRIA The left atrium is mildly dilated. The right atrium size is normal. The interatrial septum is intact with no evidence for an atrial septal defect. AORTIC VALVE The aortic valve is normal in structure. No aortic regurgitation is present. There is no aortic valvular stenosis. MITRAL VALVE The mitral valve is normal in structure. There is no evidence of mitral valve prolapse. There is no mitral valve stenosis. Mitral regurgitation is mild. TRICUSPID VALVE The tricuspid valve is normal in structure. There is mild tricuspid regurgitation. Right ventricular systolic pressure is estimated at 30-40 mmHg. There is mild pulmonary hypertension. PULMONIC VALVE The pulmonic valve is not well visualized. There is mild pulmonic valvular regurgitation. GREAT VESSELS The aortic root is normal in size. PERICARDIAL EFFUSION There is no significant pericardial effusion. <Conclusion> Left ventricle systolic function is severely impaired. The Ejection Fraction is 15-20%. Smoke noted in the left ventricle. No aortic regurgitation is present. Mitral regurgitation is mild. There is mild tricuspid regurgitation. There is mild pulmonary hypertension. There is mild pulmonic valvular regurgitation. There is a pacemaker lead in the right ventricle.
--- NOTE | 2017-12-14 09:14 | RAD ---
Date of service: 12/14/2017 HISTORY: VENT/ FF-UP COMPARISON: 12/13/2017 FINDINGS: The endotracheal tube terminates 1.5 cm proximal to the althea. The nasogastric tube terminates in the stomach. LUNGS: The lungs are well inflated and clear. There is multifocal atelectasis/scarring in the left lower lobe. PLEURA: No significant pleural effusion identified, no pneumothorax apparent. CARDIOVASCULAR: This persistent mild cardiomegaly. There is stable position of left-sided permanent pacing device. OSSEOUS STRUCTURES: No significant abnormalities. VISUALIZED UPPER ABDOMEN: Normal. OTHER FINDINGS: None. IMPRESSION: No acute findings. No significant interval change.
--- NOTE | 2017-12-14 09:17 | CP.CCUPN ---
<Dewey Salinas - Last Filed: 12/14/17 12:23> CCU Subjective - Physician Review Subjective (Free Text): Critical care progress note: Pt seen and examined at bedside. No acute events overnight. Patient is still intubated on PRVC, and sedated on propofol ggt. Patient is on pressor support - on Levo 3mcg. 12 Point ROS limited 2/2 intubation. CCU Objective - Vital Signs / Intake & Output Vital Signs (Last 4 hours): Vital Signs Pulse Resp BP Pulse Ox 12/14/17 06:31 67 16 107/63 96 12/14/17 06:18 68 16 96 12/14/17 06:03 67 16 87/53 L 97 12/14/17 06:00 70 16 97 Intake and Output (Last 8hrs): Intake & Output 12/13/17 12/14/17 12/14/17 22:59 06:59 14:59 Intake Total 1919.9 1658.6 Output Total 253 260 Balance 1666.9 1398.6 Weight 137 lb 9 oz Intake: IV 400 450 Intake, IV Amount 1309.9 1048.6 Lfa 69.6 69.6 Right Distal Port Femoral 127.8 172.5 Right Medial Port Femoral 262.5 206.5 Right Proximal Femoral - 225 Distal Port Right Proximal Port 625 600 Femoral Tube Feeding 160 160 Other 50 Output: Urine 253 260 Urethral (Mitchell) 253 260 Other: # Bowel Movements 0 0 - Physical Exam Head: Positive for: Atraumatic, Normocephalic Pupils: Positive for: PERRL Mouth: Positive for: Moist Mucous Membranes Neck: Positive for: Normal Range of Motion Respiratory/Chest: Positive for: Clear to Auscultation. Negative for: Wheezes, Rales Cardiovascular: Positive for: Regular Rate and Rhythm, Normal S1, S2 Abdomen: Positive for: Normal Bowel Sounds. Negative for: Tenderness, Distention Upper Extremity: Positive for: Normal Inspection. Negative for: Cyanosis, Edema Lower Extremity: Negative for: Edema Neurological: Positive for: CN II-XII Intact Skin: Positive for: Warm, Dry - Medications Active Medications: Active Medications Generic Name Dose Route Start Last Admin Trade Name Freq PRN Reason Stop Dose Admin Acetaminophen 650 mg 12/08/17 20:40 Tylenol 325mg Tab PO Q6 PRN Pain, Mild (1-3) Amiodarone HCl 200 mg 12/13/17 11:45 12/13/17 11:34 Cordarone PO 200 mg DAILY ASPEN Administration Aspirin 81 mg 12/09/17 10:00 12/13/17 10:36 Ecotrin PO Not Given DAILY ASPEN Norepinephrine Bitartrate 4 mg 250 mls @ 18.75 mls/hr 12/12/17 08:53 06:31 / Dextrose IV 6 mcg/min .[id number] PRN 22.5 mls/hr TITRATE PER MD ORDER Administration Protocol 5 MCG/MIN Propofol 1,000 mg in 100 mls @ 1.878 mls/hr 12/12/17 09:47 12/14/17 06:29 Diprivan IV 39.93 mcg/kg/min .Q24H PRN 15 mls/hr TITRATE PER MD ORDER Administration Protocol 5 MCG/KG/MIN Heparin Sodium/Sodium Chloride 25,000 units in 250 mls @ 8.686 mls/hr 14:52 12/13/17 15:02 Heparin 86193 Units/250ml 1/2 Normal Saline IV 13 units/kg/hr .Q24H PRN 8.686 mls/hr ADJUST RATE PER PROTOCOL Administration Protocol 13 UNITS/KG/HR Sodium Chloride 1,000 mls @ 75 mls/hr 12/13/17 16:14 12/14/17 05:32 Sodium Chloride 0.9% IV 75 mls/hr .[id number] ASPEN Administration Pantoprazole Sodium 40 mg 12/12/17 11:15 12/13/17 10:51 Protonix Inj IVP 40 mg DAILY ASPEN Administration Rosuvastatin Calcium 5 mg 12/08/17 22:00 12/13/17 21:28 Crestor PO 5 mg HS ASPEN Administration Tamsulosin HCl 0.4 mg 12/12/17 13:30 12/13/17 10:51 Flomax PO 0.4 mg DAILY ASPEN Administration - Patient Studies Lab Studies: Microbiology Studies 12/12/17 12:44 MRSA Culture (Admit) - Final Naris MRSA NOT DETECTED 12/12/17 16:11 Urine Culture - Final Urine,Catheterized No Growth (<1,000 CFU/ML) Lab Studies 12/14/17 12/14/17 12/14/17 Range/Units 06:12 06:12 06:12 WBC 16.0 H (4.8-10.8) K/uL RBC 4.20 L (4.40-5.90) Mil/uL Hgb 12.6 D (12.0-18.0) g/dL Hct 37.5 (35.0-51.0) % MCV 89.2 (80.0-94.0) fL MCH 30.1 (27.0-31.0) pg MCHC 33.7 (33.0-37.0) g/dL RDW 14.2 (11.5-14.5) % Plt Count 169 (130-400) K/uL MPV 10.3 (7.2-11.7) fL Neut % (Auto) 85.7 H (50.0-75.0) % Lymph % (Auto) 3.9 L (20.0-40.0) % [place] % (Auto) 10.1 H (0.0-10.0) % Eos % (Auto) 0.0 (0.0-4.0) % Baso % (Auto) 0.3 (0.0-2.0) % Neut # (Auto) 13.7 H (1.8-7.0) K/uL Lymph # (Auto) 0.6 L (1.0-4.3) K/uL [place] # (Auto) 1.6 H (0.0-0.8) K/uL Eos # (Auto) 0.0 (0.0-0.7) K/uL Baso # (Auto) 0.0 (0.0-0.2) K/uL Neutrophils % (Manual) 84 H (50-75) % Band Neutrophils % 2 (0-2) % Lymphocytes % (Manual) 4 L (20-40) % Monocytes % (Manual) 9 (0-10) % Basophils % (Manual) 1 (0-2) % Platelet Estimate Normal (NORMAL) Hypochromasia (manual) Slight Poikilocytosis (manual Slight Anisocytosis (manual) Slight Ovalocytes Slight APTT 73 H D (21-34) SECONDS Puncture Site pCO2 (35-45) mm/Hg pO2 (80-100) mm/Hg HCO3 (21-28) mmol/L ABG pH (7.35-7.45) ABG Total CO2 (22-28) mmol/L ABG O2 Saturation (95-98) % ABG Base Excess (-2.0-3.0) mmol/L Maicol Test ABG Potassium (3.6-5.2) mmol/L A-a O2 Difference mm/Hg Respiratory Index Sodium 138 (132-148) mmol/l Chloride 100 (98-107) mmol/L Glucose (75-110) mg/dl Lactate (0.7-2.1) mmol/L Vent Mode Mechanical Rate FiO2 % Tidal Volume PEEP Potassium 5.1 (3.6-5.2) mmol/L Carbon Dioxide 30 (22-30) mmol/L Anion Gap 13 (10-20) BUN 66 H (9-20) mg/dL Creatinine 1.9 H (0.8-1.5) mg/dL Est GFR ( Amer) 42 Est GFR (Non-Af Amer) 35 POC Glucose (mg/dL) (65-110) mg/dL Random Glucose 145 H (75-110) mg/dL Calcium 7.8 L (8.6-10.4) mg/dl Phosphorus 5.8 H (2.5-4.5) mg/dL Magnesium 2.1 (1.6-2.3) mg/dL Total Bilirubin 0.6 (0.2-1.3) mg/dL AST 40 (17-59) U/L ALT 58 (21-72) U/L Alkaline Phosphatase 60 (38-126) U/L Total Protein 6.2 L (6.3-8.3) g/dL Albumin 3.3 L (3.5-5.0) g/dL Globulin 3.0 (2.2-3.9) gm/dL Albumin/Globulin Ratio 1.1 (1.0-2.1) Arterial Blood Potassium (3.6-5.2) mmol/L 12/14/17 12/13/17 12/13/17 Range/Units 05:30 20:24 17:34 WBC (4.8-10.8) K/uL RBC (4.40-5.90) Mil/uL Hgb (12.0-18.0) g/dL Hct (35.0-51.0) % MCV (80.0-94.0) fL MCH (27.0-31.0) pg MCHC (33.0-37.0) g/dL RDW (11.5-14.5) % Plt Count (130-400) K/uL MPV (7.2-11.7) fL Neut % (Auto) (50.0-75.0) % Lymph % (Auto) (20.0-40.0) % [place] % (Auto) (0.0-10.0) % Eos % (Auto) (0.0-4.0) % Baso % (Auto) (0.0-2.0) % Neut # (Auto) (1.8-7.0) K/uL Lymph # (Auto) (1.0-4.3) K/uL [place] # (Auto) (0.0-0.8) K/uL Eos # (Auto) (0.0-0.7) K/uL Baso # (Auto) (0.0-0.2) K/uL Neutrophils % (Manual) (50-75) % Band Neutrophils % (0-2) % Lymphocytes % (Manual) (20-40) % Monocytes % (Manual) (0-10) % Basophils % (Manual) (0-2) % Platelet Estimate (NORMAL) Hypochromasia (manual) Poikilocytosis (manual Anisocytosis (manual) Ovalocytes APTT 81 H D (21-34) SECONDS Puncture Site Olivia pCO2 51 H (35-45) mm/Hg pO2 159 H (80-100) mm/Hg HCO3 27.4 (21-28) mmol/L ABG pH 7.37 (7.35-7.45) ABG Total CO2 31.1 H (22-28) mmol/L ABG O2 Saturation 99.4 H (95-98) % ABG Base Excess 3.1 H (-2.0-3.0) mmol/L Maicol Test Na ABG Potassium 5.0 (3.6-5.2) mmol/L A-a O2 Difference 205.0 mm/Hg Respiratory Index 1.3 Sodium 134.0 (132-148) mmol/l Chloride 100.0 (98-107) mmol/L Glucose 139 H (75-110) mg/dl Lactate 1.4 (0.7-2.1) mmol/L Vent Mode Prvc Mechanical Rate 16 FiO2 60.0 % Tidal Volume 500 PEEP 7 Potassium (3.6-5.2) mmol/L Carbon Dioxide (22-30) mmol/L Anion Gap (10-20) BUN (9-20) mg/dL Creatinine (0.8-1.5) mg/dL Est GFR ( Amer) Est GFR (Non-Af Amer) POC Glucose (mg/dL) 133 H (65-110) mg/dL Random Glucose (75-110) mg/dL Calcium (8.6-10.4) mg/dl Phosphorus (2.5-4.5) mg/dL Magnesium (1.6-2.3) mg/dL Total Bilirubin (0.2-1.3) mg/dL AST (17-59) U/L ALT (21-72) U/L Alkaline Phosphatase (38-126) U/L Total Protein (6.3-8.3) g/dL Albumin (3.5-5.0) g/dL Globulin (2.2-3.9) gm/dL Albumin/Globulin Ratio (1.0-2.1) Arterial Blood Potassium 5.0 (3.6-5.2) mmol/L 12/13/17 12/13/17 Range/Units 13:07 11:20 WBC (4.8-10.8) K/uL RBC (4.40-5.90) Mil/uL Hgb (12.0-18.0) g/dL Hct (35.0-51.0) % MCV (80.0-94.0) fL MCH (27.0-31.0) pg MCHC (33.0-37.0) g/dL RDW (11.5-14.5) % Plt Count (130-400) K/uL MPV (7.2-11.7) fL Neut % (Auto) (50.0-75.0) % Lymph % (Auto) (20.0-40.0) % [place] % (Auto) (0.0-10.0) % Eos % (Auto) (0.0-4.0) % Baso % (Auto) (0.0-2.0) % Neut # (Auto) (1.8-7.0) K/uL Lymph # (Auto) (1.0-4.3) K/uL [place] # (Auto) (0.0-0.8) K/uL Eos # (Auto) (0.0-0.7) K/uL Baso # (Auto) (0.0-0.2) K/uL Neutrophils % (Manual) (50-75) % Band Neutrophils % (0-2) % Lymphocytes % (Manual) (20-40) % Monocytes % (Manual) (0-10) % Basophils % (Manual) (0-2) % Platelet Estimate (NORMAL) Hypochromasia (manual) Poikilocytosis (manual Anisocytosis (manual) Ovalocytes APTT 26 D (21-34) SECONDS Puncture Site pCO2 (35-45) mm/Hg pO2 (80-100) mm/Hg HCO3 (21-28) mmol/L ABG pH (7.35-7.45) ABG Total CO2 (22-28) mmol/L ABG O2 Saturation (95-98) % ABG Base Excess (-2.0-3.0) mmol/L Maicol Test ABG Potassium (3.6-5.2) mmol/L A-a O2 Difference mm/Hg Respiratory Index Sodium (132-148) mmol/l Chloride (98-107) mmol/L Glucose (75-110) mg/dl Lactate (0.7-2.1) mmol/L Vent Mode Mechanical Rate FiO2 % Tidal Volume PEEP Potassium (3.6-5.2) mmol/L Carbon Dioxide (22-30) mmol/L Anion Gap (10-20) BUN (9-20) mg/dL Creatinine (0.8-1.5) mg/dL Est GFR ( Amer) Est GFR (Non-Af Amer) POC Glucose (mg/dL) 177 H (65-110) mg/dL Random Glucose (75-110) mg/dL Calcium (8.6-10.4) mg/dl Phosphorus (2.5-4.5) mg/dL Magnesium (1.6-2.3) mg/dL Total Bilirubin (0.2-1.3) mg/dL AST (17-59) U/L ALT (21-72) U/L Alkaline Phosphatase (38-126) U/L Total Protein (6.3-8.3) g/dL Albumin (3.5-5.0) g/dL Globulin (2.2-3.9) gm/dL Albumin/Globulin Ratio (1.0-2.1) Arterial Blood Potassium (3.6-5.2) mmol/L Laboratory Results - last 24 hr 12/13/17 12/13/17 12/13/17 11:20 13:07 17:34 WBC RBC Hgb Hct MCV MCH MCHC RDW Plt Count MPV Neut % (Auto) Lymph % (Auto) [place] % (Auto) Eos % (Auto) Baso % (Auto) Neut # (Auto) Lymph # (Auto) [place] # (Auto) Eos # (Auto) Baso # (Auto) Neutrophils % (Manual) Band Neutrophils % Lymphocytes % (Manual) Monocytes % (Manual) Basophils % (Manual) Platelet Estimate Hypochromasia (manual) Poikilocytosis (manual Anisocytosis (manual) Ovalocytes APTT 26 D Puncture Site pCO2 pO2 HCO3 ABG pH ABG Total CO2 ABG O2 Saturation ABG Base Excess Maicol Test ABG Potassium A-a O2 Difference Respiratory Index Sodium Chloride Glucose Lactate Vent Mode Mechanical Rate FiO2 Tidal Volume PEEP Potassium Carbon Dioxide Anion Gap BUN Creatinine Est GFR ( Amer) Est GFR (Non-Af Amer) POC Glucose (mg/dL) 177 H 133 H Random Glucose Calcium Phosphorus Magnesium Total Bilirubin AST ALT Alkaline Phosphatase Total Protein Albumin Globulin Albumin/Globulin Ratio Arterial Blood Potassium 12/13/17 12/14/17 12/14/17 20:24 05:30 06:12 WBC 16.0 H RBC 4.20 L Hgb 12.6 D Hct 37.5 MCV 89.2 MCH 30.1 MCHC 33.7 RDW 14.2 Plt Count 169 MPV 10.3 Neut % (Auto) 85.7 H Lymph % (Auto) 3.9 L [place] % (Auto) 10.1 H Eos % (Auto) 0.0 Baso % (Auto) 0.3 Neut # (Auto) 13.7 H Lymph # (Auto) 0.6 L [place] # (Auto) 1.6 H Eos # (Auto) 0.0 Baso # (Auto) 0.0 Neutrophils % (Manual) 84 H Band Neutrophils % 2 Lymphocytes % (Manual) 4 L Monocytes % (Manual) 9 Basophils % (Manual) 1 Platelet Estimate Normal Hypochromasia (manual) Slight Poikilocytosis (manual Slight Anisocytosis (manual) Slight Ovalocytes Slight APTT 81 H D Puncture Site Olivia pCO2 51 H pO2 159 H HCO3 27.4 ABG pH 7.37 ABG Total CO2 31.1 H ABG O2 Saturation 99.4 H ABG Base Excess 3.1 H Maicol Test Na ABG Potassium 5.0 A-a O2 Difference 205.0 Respiratory Index 1.3 Sodium 134.0 Chloride 100.0 Glucose 139 H Lactate 1.4 Vent Mode Prvc Mechanical Rate 16 FiO2 60.0 Tidal Volume 500 PEEP 7 Potassium Carbon Dioxide Anion Gap BUN Creatinine Est GFR ( Amer) Est GFR (Non-Af Amer) POC Glucose (mg/dL) Random Glucose Calcium Phosphorus Magnesium Total Bilirubin AST ALT Alkaline Phosphatase Total Protein Albumin Globulin Albumin/Globulin Ratio Arterial Blood Potassium 5.0 12/14/17 12/14/17 06:12 06:12 WBC RBC Hgb Hct MCV MCH MCHC RDW Plt Count MPV Neut % (Auto) Lymph % (Auto) [place] % (Auto) Eos % (Auto) Baso % (Auto) Neut # (Auto) Lymph # (Auto) [place] # (Auto) Eos # (Auto) Baso # (Auto) Neutrophils % (Manual) Band Neutrophils % Lymphocytes % (Manual) Monocytes % (Manual) Basophils % (Manual) Platelet Estimate Hypochromasia (manual) Poikilocytosis (manual Anisocytosis (manual) Ovalocytes APTT 73 H D Puncture Site pCO2 pO2 HCO3 ABG pH ABG Total CO2 ABG O2 Saturation ABG Base Excess Maicol Test ABG Potassium A-a O2 Difference Respiratory Index Sodium 138 Chloride 100 Glucose Lactate Vent Mode Mechanical Rate FiO2 Tidal Volume PEEP Potassium 5.1 Carbon Dioxide 30 Anion Gap 13 BUN 66 H Creatinine 1.9 H Est GFR ( Amer) 42 Est GFR (Non-Af Amer) 35 POC Glucose (mg/dL) Random Glucose 145 H Calcium 7.8 L Phosphorus 5.8 H Magnesium 2.1 Total Bilirubin 0.6 AST 40 ALT 58 Alkaline Phosphatase 60 Total Protein 6.2 L Albumin 3.3 L Globulin 3.0 Albumin/Globulin Ratio 1.1 Arterial Blood Potassium Fingerstick Blood Sugar Results: 146 Review of Systems - Review of Systems Systems not reviewed;Unavailable: Intubated Critical Care Progress Note - Nutrition Nutrition: Nutrition Category Date Time Status NPO Diet [DIET] Diets 12/12/17 Breakfast Active Assessment/Plan - Assessment and Plan (Free Text) Assessment: 72 M w/ PMHx of [place], Afib, PVD, CHF (EF 15-20%), CAD s/p ACID, who presents to the ICU following positive stress test, contrast induced hypotension during cardiac cath followed by cardiac arrest. Now being treated in the ICU for cardiogenic shock. Neuro: - Currently sedated on Diprivan - Weaned off sedation as tolerated Pulm: - Currently on PRVC, PS trial again today as tolerated - maintain SPO2 > 92% CV: - Levophed at 3mcq titrate as needed - Started on Albumin today - maintain MAP> 65 - Cardiology consulted for recs - Cont 200mg PO daily - Cont Crestor - Continue Heparin ggt - IVF with NS @ 100 - Cont Aspirin daily - F/u echo ordered - EF of 15-20 % - Rec AICD/Pacemaker? interrogation GI: - Tube feed - Protonix for ppx - Monitor LFTs - Surg consult: no plan for surgery for hernia at this time as patient is too unstable Renal: - Oligouric CANDIDA probably 2/2 to hypoperfusion during code blue - Cr 1.7 --> 1.9 today - Avoid nephrotoxic drugs - Monitor I and O - Replete electrolytes as needed Endo: - Maintain euglycemia ID: - No leukocytosis, afebrile - f/u septic work up - no indication for abx at this time GI/DVT ppx Case and plan was reviewed and discussed in detail with Dr Arguello. <Manfred Arguello - Last Filed: 12/14/17 17:18> CCU Objective - Vital Signs / Intake & Output Vital Signs (Last 4 hours): Vital Signs Pulse Resp BP Pulse Ox 12/14/17 13:03 68 16 112/66 98 12/14/17 13:00 71 16 98 Intake and Output (Last 8hrs): Intake & Output 12/14/17 12/14/17 12/14/17 06:59 14:59 22:59 Intake Total 1658.6 1246.1 0 Output Total 260 240 Balance 1398.6 1006.1 0 Weight 137 lb 9 oz Intake: IV 450 150 0 Intake, IV Amount 1048.6 926.1 Lfa 69.6 26.1 Right Distal Port Femoral 172.5 120 Right Medial Port Femoral 206.5 180.0 Right Proximal Port 600 600 Femoral Tube Feeding 160 170 Output: Urine 260 240 Urethral (Mitchell) 260 240 Other: # Bowel Movements 0 0 - Medications Active Medications: Active Medications Generic Name Dose Route Start Last Admin Trade Name Freq PRN Reason Stop Dose Admin Acetaminophen 650 mg 12/08/17 20:40 Tylenol 325mg Tab PO Q6 PRN Pain, Mild (1-3) Albumin Human 12.5 gm 12/14/17 10:30 12/14/17 16:22 Albumin Human 25% (12.5 Gm/50 Ml) IV 12/14/17 18:31 12.5 gm Q2H ASPEN Administration Amiodarone HCl 200 mg 12/13/17 11:45 12/14/17 11:21 Cordarone PO 200 mg DAILY ASPEN Administration Aspirin 81 mg 12/09/17 10:00 12/14/17 09:21 Ecotrin PO 81 mg DAILY ASPEN Administration Norepinephrine Bitartrate 4 mg 250 mls @ 18.75 mls/hr 12/12/17 08:53 06:31 / Dextrose IV 6 mcg/min .[id number] PRN 22.5 mls/hr TITRATE PER MD ORDER Administration Protocol 5 MCG/MIN Propofol 1,000 mg in 100 mls @ 1.878 mls/hr 12/12/17 09:47 12/14/17 13:12 Diprivan IV 39.93 mcg/kg/min .Q24H PRN 15 mls/hr TITRATE PER MD ORDER Administration Protocol 5 MCG/KG/MIN Heparin Sodium/Sodium Chloride 25,000 units in 250 mls @ 8.686 mls/hr 14:52 12/14/17 16:20 Heparin 76247 Units/250ml 1/2 Normal Saline IV 13 units/kg/hr .Q24H PRN 8.686 mls/hr ADJUST RATE PER PROTOCOL Titration Protocol 13 UNITS/KG/HR Sodium Chloride 1,000 mls @ 75 mls/hr 12/13/17 16:14 12/14/17 05:32 Sodium Chloride 0.9% IV 75 mls/hr .[id number] ASPEN Administration Pantoprazole Sodium 40 mg 12/12/17 11:15 12/14/17 09:21 Protonix Inj IVP 40 mg DAILY ASPEN Administration Rosuvastatin Calcium 5 mg 12/08/17 22:00 12/13/17 21:28 Crestor PO 5 mg HS ASPEN Administration Tamsulosin HCl 0.4 mg 12/12/17 13:30 12/14/17 09:21 Flomax PO 0.4 mg DAILY ASPEN Administration - Patient Studies Lab Studies: Microbiology Studies 12/12/17 12:44 MRSA Culture (Admit) - Final Naris MRSA NOT DETECTED 12/12/17 16:11 Urine Culture - Final Urine,Catheterized No Growth (<1,000 CFU/ML) Lab Studies 12/14/17 12/14/17 12/14/17 Range/Units 11:41 06:12 06:12 WBC (4.8-10.8) K/uL RBC (4.40-5.90) Mil/uL Hgb (12.0-18.0) g/dL Hct (35.0-51.0) % MCV (80.0-94.0) fL MCH (27.0-31.0) pg MCHC (33.0-37.0) g/dL RDW (11.5-14.5) % Plt Count (130-400) K/uL MPV (7.2-11.7) fL Neut % (Auto) (50.0-75.0) % Lymph % (Auto) (20.0-40.0) % [place] % (Auto) (0.0-10.0) % Eos % (Auto) (0.0-4.0) % Baso % (Auto) (0.0-2.0) % Neut # (Auto) (1.8-7.0) K/uL Lymph # (Auto) (1.0-4.3) K/uL [place] # (Auto) (0.0-0.8) K/uL Eos # (Auto) (0.0-0.7) K/uL Baso # (Auto) (0.0-0.2) K/uL Neutrophils % (Manual) (50-75) % Band Neutrophils % (0-2) % Lymphocytes % (Manual) (20-40) % Monocytes % (Manual) (0-10) % Basophils % (Manual) (0-2) % Platelet Estimate (NORMAL) Hypochromasia (manual) Poikilocytosis (manual Anisocytosis (manual) Ovalocytes APTT 73 H D (21-34) SECONDS Puncture Site pCO2 (35-45) mm/Hg pO2 (80-100) mm/Hg HCO3 (21-28) mmol/L ABG pH (7.35-7.45) ABG Total CO2 (22-28) mmol/L ABG O2 Saturation (95-98) % ABG Base Excess (-2.0-3.0) mmol/L Maicol Test ABG Potassium (3.6-5.2) mmol/L A-a O2 Difference mm/Hg Respiratory Index Sodium 138 (132-148) mmol/l Chloride 100 (98-107) mmol/L Glucose (75-110) mg/dl Lactate (0.7-2.1) mmol/L Vent Mode Mechanical Rate FiO2 % Tidal Volume PEEP Potassium 5.1 (3.6-5.2) mmol/L Carbon Dioxide 30 (22-30) mmol/L Anion Gap 13 (10-20) BUN 66 H (9-20) mg/dL Creatinine 1.9 H (0.8-1.5) mg/dL Est GFR ( Amer) 42 Est GFR (Non-Af Amer) 35 POC Glucose (mg/dL) 107 (65-110) mg/dL Random Glucose 145 H (75-110) mg/dL Calcium 7.8 L (8.6-10.4) mg/dl Phosphorus 5.8 H (2.5-4.5) mg/dL Magnesium 2.1 (1.6-2.3) mg/dL Total Bilirubin 0.6 (0.2-1.3) mg/dL AST 40 (17-59) U/L ALT 58 (21-72) U/L Alkaline Phosphatase 60 (38-126) U/L Total Protein 6.2 L (6.3-8.3) g/dL Albumin 3.3 L (3.5-5.0) g/dL Globulin 3.0 (2.2-3.9) gm/dL Albumin/Globulin Ratio 1.1 (1.0-2.1) Arterial Blood Potassium (3.6-5.2) mmol/L Digitoxin ng/mL 12/14/17 12/14/17 12/14/17 Range/Units 06:12 05:30 05:24 WBC 16.0 H (4.8-10.8) K/uL RBC 4.20 L (4.40-5.90) Mil/uL Hgb 12.6 D (12.0-18.0) g/dL Hct 37.5 (35.0-51.0) % MCV 89.2 (80.0-94.0) fL MCH 30.1 (27.0-31.0) pg MCHC 33.7 (33.0-37.0) g/dL RDW 14.2 (11.5-14.5) % Plt Count 169 (130-400) K/uL MPV 10.3 (7.2-11.7) fL Neut % (Auto) 85.7 H (50.0-75.0) % Lymph % (Auto) 3.9 L (20.0-40.0) % [place] % (Auto) 10.1 H (0.0-10.0) % Eos % (Auto) 0.0 (0.0-4.0) % Baso % (Auto) 0.3 (0.0-2.0) % Neut # (Auto) 13.7 H (1.8-7.0) K/uL Lymph # (Auto) 0.6 L (1.0-4.3) K/uL [place] # (Auto) 1.6 H (0.0-0.8) K/uL Eos # (Auto) 0.0 (0.0-0.7) K/uL Baso # (Auto) 0.0 (0.0-0.2) K/uL Neutrophils % (Manual) 84 H (50-75) % Band Neutrophils % 2 (0-2) % Lymphocytes % (Manual) 4 L (20-40) % Monocytes % (Manual) 9 (0-10) % Basophils % (Manual) 1 (0-2) % Platelet Estimate Normal (NORMAL) Hypochromasia (manual) Slight Poikilocytosis (manual Slight Anisocytosis (manual) Slight Ovalocytes Slight APTT (21-34) SECONDS Puncture Site Olivia pCO2 51 H (35-45) mm/Hg pO2 159 H (80-100) mm/Hg HCO3 27.4 (21-28) mmol/L ABG pH 7.37 (7.35-7.45) ABG Total CO2 31.1 H (22-28) mmol/L ABG O2 Saturation 99.4 H (95-98) % ABG Base Excess 3.1 H (-2.0-3.0) mmol/L Maicol Test Na ABG Potassium 5.0 (3.6-5.2) mmol/L A-a O2 Difference 205.0 mm/Hg Respiratory Index 1.3 Sodium 134.0 (132-148) mmol/l Chloride 100.0 (98-107) mmol/L Glucose 139 H (75-110) mg/dl Lactate 1.4 (0.7-2.1) mmol/L Vent Mode Prvc Mechanical Rate 16 FiO2 60.0 % Tidal Volume 500 PEEP 7 Potassium (3.6-5.2) mmol/L Carbon Dioxide (22-30) mmol/L Anion Gap (10-20) BUN (9-20) mg/dL Creatinine (0.8-1.5) mg/dL Est GFR ( Amer) Est GFR (Non-Af Amer) POC Glucose (mg/dL) 146 H (65-110) mg/dL Random Glucose (75-110) mg/dL Calcium (8.6-10.4) mg/dl Phosphorus (2.5-4.5) mg/dL Magnesium (1.6-2.3) mg/dL Total Bilirubin (0.2-1.3) mg/dL AST (17-59) U/L ALT (21-72) U/L Alkaline Phosphatase (38-126) U/L Total Protein (6.3-8.3) g/dL Albumin (3.5-5.0) g/dL Globulin (2.2-3.9) gm/dL Albumin/Globulin Ratio (1.0-2.1) Arterial Blood Potassium 5.0 (3.6-5.2) mmol/L Digitoxin ng/mL 12/13/17 12/13/17 12/13/17 Range/Units 23:38 20:24 17:34 WBC (4.8-10.8) K/uL RBC (4.40-5.90) Mil/uL Hgb (12.0-18.0) g/dL Hct (35.0-51.0) % MCV (80.0-94.0) fL MCH (27.0-31.0) pg MCHC (33.0-37.0) g/dL RDW (11.5-14.5) % Plt Count (130-400) K/uL MPV (7.2-11.7) fL Neut % (Auto) (50.0-75.0) % Lymph % (Auto) (20.0-40.0) % [place] % (Auto) (0.0-10.0) % Eos % (Auto) (0.0-4.0) % Baso % (Auto) (0.0-2.0) % Neut # (Auto) (1.8-7.0) K/uL Lymph # (Auto) (1.0-4.3) K/uL [place] # (Auto) (0.0-0.8) K/uL Eos # (Auto) (0.0-0.7) K/uL Baso # (Auto) (0.0-0.2) K/uL Neutrophils % (Manual) (50-75) % Band Neutrophils % (0-2) % Lymphocytes % (Manual) (20-40) % Monocytes % (Manual) (0-10) % Basophils % (Manual) (0-2) % Platelet Estimate (NORMAL) Hypochromasia (manual) Poikilocytosis (manual Anisocytosis (manual) Ovalocytes APTT 81 H D (21-34) SECONDS Puncture Site pCO2 (35-45) mm/Hg pO2 (80-100) mm/Hg HCO3 (21-28) mmol/L ABG pH (7.35-7.45) ABG Total CO2 (22-28) mmol/L ABG O2 Saturation (95-98) % ABG Base Excess (-2.0-3.0) mmol/L Maicol Test ABG Potassium (3.6-5.2) mmol/L A-a O2 Difference mm/Hg Respiratory Index Sodium (132-148) mmol/l Chloride (98-107) mmol/L Glucose (75-110) mg/dl Lactate (0.7-2.1) mmol/L Vent Mode Mechanical Rate FiO2 % Tidal Volume PEEP Potassium (3.6-5.2) mmol/L Carbon Dioxide (22-30) mmol/L Anion Gap (10-20) BUN (9-20) mg/dL Creatinine (0.8-1.5) mg/dL Est GFR ( Amer) Est GFR (Non-Af Amer) POC Glucose (mg/dL) 113 H 133 H (65-110) mg/dL Random Glucose (75-110) mg/dL Calcium (8.6-10.4) mg/dl Phosphorus (2.5-4.5) mg/dL Magnesium (1.6-2.3) mg/dL Total Bilirubin (0.2-1.3) mg/dL AST (17-59) U/L ALT (21-72) U/L Alkaline Phosphatase (38-126) U/L Total Protein (6.3-8.3) g/dL Albumin (3.5-5.0) g/dL Globulin (2.2-3.9) gm/dL Albumin/Globulin Ratio (1.0-2.1) Arterial Blood Potassium (3.6-5.2) mmol/L Digitoxin ng/mL 12/09/17 Range/Units 07:46 WBC (4.8-10.8) K/uL RBC (4.40-5.90) Mil/uL Hgb (12.0-18.0) g/dL Hct (35.0-51.0) % MCV (80.0-94.0) fL MCH (27.0-31.0) pg MCHC (33.0-37.0) g/dL RDW (11.5-14.5) % Plt Count (130-400) K/uL MPV (7.2-11.7) fL Neut % (Auto) (50.0-75.0) % Lymph % (Auto) (20.0-40.0) % [place] % (Auto) (0.0-10.0) % Eos % (Auto) (0.0-4.0) % Baso % (Auto) (0.0-2.0) % Neut # (Auto) (1.8-7.0) K/uL Lymph # (Auto) (1.0-4.3) K/uL [place] # (Auto) (0.0-0.8) K/uL Eos # (Auto) (0.0-0.7) K/uL Baso # (Auto) (0.0-0.2) K/uL Neutrophils % (Manual) (50-75) % Band Neutrophils % (0-2) % Lymphocytes % (Manual) (20-40) % Monocytes % (Manual) (0-10) % Basophils % (Manual) (0-2) % Platelet Estimate (NORMAL) Hypochromasia (manual) Poikilocytosis (manual Anisocytosis (manual) Ovalocytes APTT (21-34) SECONDS Puncture Site pCO2 (35-45) mm/Hg pO2 (80-100) mm/Hg HCO3 (21-28) mmol/L ABG pH (7.35-7.45) ABG Total CO2 (22-28) mmol/L ABG O2 Saturation (95-98) % ABG Base Excess (-2.0-3.0) mmol/L Maicol Test ABG Potassium (3.6-5.2) mmol/L A-a O2 Difference mm/Hg Respiratory Index Sodium (132-148) mmol/l Chloride (98-107) mmol/L Glucose (75-110) mg/dl Lactate (0.7-2.1) mmol/L Vent Mode Mechanical Rate FiO2 % Tidal Volume PEEP Potassium (3.6-5.2) mmol/L Carbon Dioxide (22-30) mmol/L Anion Gap (10-20) BUN (9-20) mg/dL Creatinine (0.8-1.5) mg/dL Est GFR ( Amer) Est GFR (Non-Af Amer) POC Glucose (mg/dL) (65-110) mg/dL Random Glucose (75-110) mg/dL Calcium (8.6-10.4) mg/dl Phosphorus (2.5-4.5) mg/dL Magnesium (1.6-2.3) mg/dL Total Bilirubin (0.2-1.3) mg/dL AST (17-59) U/L ALT (21-72) U/L Alkaline Phosphatase (38-126) U/L Total Protein (6.3-8.3) g/dL Albumin (3.5-5.0) g/dL Globulin (2.2-3.9) gm/dL Albumin/Globulin Ratio (1.0-2.1) Arterial Blood Potassium (3.6-5.2) mmol/L Digitoxin None detected ng/mL Laboratory Results - last 24 hr 12/09/17 12/13/17 12/13/17 07:46 17:34 20:24 WBC RBC Hgb Hct MCV MCH MCHC RDW Plt Count MPV Neut % (Auto) Lymph % (Auto) [place] % (Auto) Eos % (Auto) Baso % (Auto) Neut # (Auto) Lymph # (Auto) [place] # (Auto) Eos # (Auto) Baso # (Auto) Neutrophils % (Manual) Band Neutrophils % Lymphocytes % (Manual) Monocytes % (Manual) Basophils % (Manual) Platelet Estimate Hypochromasia (manual) Poikilocytosis (manual Anisocytosis (manual) Ovalocytes APTT 81 H D Puncture Site pCO2 pO2 HCO3 ABG pH ABG Total CO2 ABG O2 Saturation ABG Base Excess Maicol Test ABG Potassium A-a O2 Difference Respiratory Index Sodium Chloride Glucose Lactate Vent Mode Mechanical Rate FiO2 Tidal Volume PEEP Potassium Carbon Dioxide Anion Gap BUN Creatinine Est GFR ( Amer) Est GFR (Non-Af Amer) POC Glucose (mg/dL) 133 H Random Glucose Calcium Phosphorus Magnesium Total Bilirubin AST ALT Alkaline Phosphatase Total Protein Albumin Globulin Albumin/Globulin Ratio Arterial Blood Potassium Digitoxin None detected 12/13/17 12/14/17 12/14/17 23:38 05:24 05:30 WBC RBC Hgb Hct MCV MCH MCHC RDW Plt Count MPV Neut % (Auto) Lymph % (Auto) [place] % (Auto) Eos % (Auto) Baso % (Auto) Neut # (Auto) Lymph # (Auto) [place] # (Auto) Eos # (Auto) Baso # (Auto) Neutrophils % (Manual) Band Neutrophils % Lymphocytes % (Manual) Monocytes % (Manual) Basophils % (Manual) Platelet Estimate Hypochromasia (manual) Poikilocytosis (manual Anisocytosis (manual) Ovalocytes APTT Puncture Site Olivia pCO2 51 H pO2 159 H HCO3 27.4 ABG pH 7.37 ABG Total CO2 31.1 H ABG O2 Saturation 99.4 H ABG Base Excess 3.1 H Maicol Test Na ABG Potassium 5.0 A-a O2 Difference 205.0 Respiratory Index 1.3 Sodium 134.0 Chloride 100.0 Glucose 139 H Lactate 1.4 Vent Mode Prvc Mechanical Rate 16 FiO2 60.0 Tidal Volume 500 PEEP 7 Potassium Carbon Dioxide Anion Gap BUN Creatinine Est GFR ( Amer) Est GFR (Non-Af Amer) POC Glucose (mg/dL) 113 H 146 H Random Glucose Calcium Phosphorus Magnesium Total Bilirubin AST ALT Alkaline Phosphatase Total Protein Albumin Globulin Albumin/Globulin Ratio Arterial Blood Potassium 5.0 Digitoxin 12/14/17 12/14/17 12/14/17 06:12 06:12 06:12 WBC 16.0 H RBC 4.20 L Hgb 12.6 D Hct 37.5 MCV 89.2 MCH 30.1 MCHC 33.7 RDW 14.2 Plt Count 169 MPV 10.3 Neut % (Auto) 85.7 H Lymph % (Auto) 3.9 L [place] % (Auto) 10.1 H Eos % (Auto) 0.0 Baso % (Auto) 0.3 Neut # (Auto) 13.7 H Lymph # (Auto) 0.6 L [place] # (Auto) 1.6 H Eos # (Auto) 0.0 Baso # (Auto) 0.0 Neutrophils % (Manual) 84 H Band Neutrophils % 2 Lymphocytes % (Manual) 4 L Monocytes % (Manual) 9 Basophils % (Manual) 1 Platelet Estimate Normal Hypochromasia (manual) Slight Poikilocytosis (manual Slight Anisocytosis (manual) Slight Ovalocytes Slight APTT 73 H D Puncture Site pCO2 pO2 HCO3 ABG pH ABG Total CO2 ABG O2 Saturation ABG Base Excess Maicol Test ABG Potassium A-a O2 Difference Respiratory Index Sodium 138 Chloride 100 Glucose Lactate Vent Mode Mechanical Rate FiO2 Tidal Volume PEEP Potassium 5.1 Carbon Dioxide 30 Anion Gap 13 BUN 66 H Creatinine 1.9 H Est GFR ( Amer) 42 Est GFR (Non-Af Amer) 35 POC Glucose (mg/dL) Random Glucose 145 H Calcium 7.8 L Phosphorus 5.8 H Magnesium 2.1 Total Bilirubin 0.6 AST 40 ALT 58 Alkaline Phosphatase 60 Total Protein 6.2 L Albumin 3.3 L Globulin 3.0 Albumin/Globulin Ratio 1.1 Arterial Blood Potassium Digitoxin 12/14/17 11:41 WBC RBC Hgb Hct MCV MCH MCHC RDW Plt Count MPV Neut % (Auto) Lymph % (Auto) [place] % (Auto) Eos % (Auto) Baso % (Auto) Neut # (Auto) Lymph # (Auto) [place] # (Auto) Eos # (Auto) Baso # (Auto) Neutrophils % (Manual) Band Neutrophils % Lymphocytes % (Manual) Monocytes % (Manual) Basophils % (Manual) Platelet Estimate Hypochromasia (manual) Poikilocytosis (manual Anisocytosis (manual) Ovalocytes APTT Puncture Site pCO2 pO2 HCO3 ABG pH ABG Total CO2 ABG O2 Saturation ABG Base Excess Maicol Test ABG Potassium A-a O2 Difference Respiratory Index Sodium Chloride Glucose Lactate Vent Mode Mechanical Rate FiO2 Tidal Volume PEEP Potassium Carbon Dioxide Anion Gap BUN Creatinine Est GFR ( Amer) Est GFR (Non-Af Amer) POC Glucose (mg/dL) 107 Random Glucose Calcium Phosphorus Magnesium Total Bilirubin AST ALT Alkaline Phosphatase Total Protein Albumin Globulin Albumin/Globulin Ratio Arterial Blood Potassium Digitoxin Critical Care Progress Note - Nutrition Nutrition: Nutrition Category Date Time Status NPO Diet [DIET] Diets 12/12/17 Breakfast Active Attending/Attestation - Attestation I have personally seen and examined this patient.: Yes I have fully participated in the care of the patient.: Yes I have reviewed all pertinent clinical information: Yes Notes (Text): 12/14/17 16:58 I have seen and examined the patient. Medical records, lab studies, and imaging were reviewed by me and a management plan was formulated on multidisciplinary rounds with resident Dr. Salinas. I agree with their documented assessment and plan. acute respiratory faiure, not tolerating PS trials. Severe systolic heart failure, cardiogenic shock on levophed, titrating down. Critical Care Time 35 minutes. Multi-disciplinary rounds were performed with house staff, nursing, speech therapy, respiratory therapy, pharmacy and nutrition with integrated input from the primary team/attending and other consulting services. The documented time is cumulative and includes review of patient data/exams/labs/chart review and examination of the patient on rounds and throughout the day; time is exclusive of any procedures or teaching time. 12/14/17 17:17
[2017-12-14] MEDS: Albumin Human 25% (12.5 gm/50 ml) IV SCH ×5 (10:36→18:05)
--- NOTE | 2017-12-14 23:28 | CP.PCM.PN ---
Subjective - Date & Time of Evaluation Date of Evaluation: 12/14/17 Time of Evaluation: 09:20 - Subjective Subjective: Patient seen and evaluated On ventilator s/p V Fib arrest Non STEMI Pressors being weaned off Objective - Vital Signs/Intake and Output Vital Signs (last 24 hours): Temp Pulse Resp BP Pulse Ox 98.3 F 67 16 121/60 98 12/14/17 20:00 12/14/17 22:04 12/14/17 22:04 12/14/17 22:04 12/14/17 22:04 Intake and Output: 12/14/17 12/15/17 18:59 06:59 Intake Total 1304.5 324.9 Output Total 570 395 Balance 734.5 -70.1 - Medications Medications: Current Medications Acetaminophen (Tylenol 325mg Tab) 650 mg PO Q6 PRN PRN Reason: Pain, Mild (1-3) Amiodarone HCl (Cordarone) 200 mg PO DAILY [facility] Last Admin: 12/14/17 11:21 Dose: 200 mg Aspirin (Ecotrin) 81 mg PO DAILY [facility] Last Admin: 12/14/17 09:21 Dose: 81 mg Norepinephrine Bitartrate 4 mg (/ Dextrose) 250 mls @ 18.75 mls/hr IV .[id number] PRN; Protocol; 5 MCG/MIN PRN Reason: TITRATE PER MD ORDER Last Titration: 12/14/17 15:00 Dose: 3 mcg/min, 11.25 mls/hr Propofol (Diprivan) 1,000 mg in 100 mls @ 1.878 mls/hr IV .Q24H PRN; Protocol; 5 MCG/KG/MIN PRN Reason: TITRATE PER MD ORDER Last Admin: 12/14/17 19:10 Dose: 39.93 mcg/kg/min, 15 mls/hr Heparin Sodium/Sodium Chloride (Heparin 91134 Units/250ml 1/2 Normal Saline) 25 ,000 units in 250 mls @ 8.686 mls/hr IV .Q24H PRN; Protocol; 13 UNITS/KG/HR PRN Reason: ADJUST RATE PER PROTOCOL Last Titration: 12/14/17 16:20 Dose: 13 units/kg/hr, 8.686 mls/hr Sodium Chloride (Sodium Chloride 0.9%) 1,000 mls @ 75 mls/hr IV .[id number] [facility] Last Admin: 12/14/17 19:47 Dose: 75 mls/hr Pantoprazole Sodium (Protonix Inj) 40 mg IVP DAILY [facility] Last Admin: 12/14/17 09:21 Dose: 40 mg Rosuvastatin Calcium (Crestor) 5 mg PO HS [facility] Last Admin: 12/14/17 21:26 Dose: 5 mg Tamsulosin HCl (Flomax) 0.4 mg PO DAILY [facility] Last Admin: 12/14/17 09:21 Dose: 0.4 mg - Labs Labs: 12/14/17 06:12 12/14/17 06:12 PT 12.1 SECONDS (9.7-12.2) 12/12/17 12:11 INR 1.1 12/12/17 12:11 APTT 73 SECONDS (21-34) H D 12/14/17 06:12
[2017-12-15] MEDS: Propofol 10 mg/ml 1,000 MG/100 ML VIAL IV PRN ×2 (00:31→07:26)
[2017-12-15 06:00] LABS: ABG ALLEN TEST POS; ARTERIAL BLOOD GAS HCO3 29.5 mmol/L (21-28); ARTERIAL BLOOD GAS O2 SAT 98.6 % (95-98); ARTERIAL BLOOD GAS PCO2 47 mm/Hg (35-45); ARTERIAL BLOOD GAS PH 7.43 (7.35-7.45); ARTERIAL BLOOD GAS PO2 122 mm/Hg (80-100); ARTERIAL BLOOD GAS TCO2 32.6 mmol/L (22-28)
[2017-12-15 06:26] LABS: BASO # 0.1 K/uL (0.0-0.2); BASO % 0.5 % (0.0-2.0); EOS % 0.4 % (0.0-4.0); HEMOGLOBIN 11.2 g/dL (12.0-18.0); LYMPH # 0.5 K/uL (1.0-4.3); LYMPH % 5.2 % (20.0-40.0); MEAN CELL VOLUME 90.4 fL (80.0-94.0); MEAN CORPUSCULAR HEMOGLOBIN 30.5 pg (27.0-31.0); MEAN CORPUSCULAR HGB CONC 33.8 g/dL (33.0-37.0); MEAN PLATELET VOLUME 10.3 fL (7.2-11.7); MONO # 1.1 K/uL (0.0-0.8); MONO % 10.4 % (0.0-10.0); NEUT # 8.8 K/uL (1.8-7.0); NEUT % 83.5 % (50.0-75.0); PLATELET COUNT 129 K/uL (130-400); RBC 3.66 Mil/uL (4.40-5.90); RED CELL DISTRIBUTION WIDTH 14.8 % (11.5-14.5); WHITE BLOOD COUNT 10.5 K/uL (4.8-10.8)
[2017-12-15 06:38] LABS: ALB/GLOB RATIO 1.2 (1.0-2.1); ALBUMIN 3.4 g/dL (3.5-5.0); CALCIUM 8.4 mg/dl (8.6-10.4)
--- NOTE | 2017-12-15 08:36 | CP.CCUPN ---
<Evangelista Baptiste - Last Filed: 12/15/17 15:09> CCU Subjective - Physician Review Subjective (Free Text): 12/15/17 14:11 Pt seen and examined at bedside in the ICU. No acute events overnight. Remains intubated and sedated on propofol, now discontinued. Attempted another pressure support trial while off proprofol and more awake, but patient was tachypnic to 30's while drawing very poor volumes, so he was placed back on PRVC and Precedex was started for patient's agitation on the vent. Will consult Surgery for possible track since patient unable to be weaned from ventilator. CCU Objective - Vital Signs / Intake & Output Vital Signs (Last 4 hours): Vital Signs Temp Pulse Resp BP Pulse Ox 12/15/17 08:04 72 16 106/58 L 97 12/15/17 08:00 98.7 F 76 16 98 12/15/17 07:04 69 16 106/60 98 12/15/17 07:00 70 16 98 12/15/17 06:04 74 16 103/56 L 97 12/15/17 06:00 82 17 97 12/15/17 05:03 88 16 118/72 97 12/15/17 05:00 88 15 97 Intake and Output (Last 8hrs): Intake & Output 12/14/17 12/15/17 12/15/17 22:59 06:59 14:59 Intake Total 680.8 474.0 348.4 Output Total 695 575 55 Balance -14.2 -101.0 293.4 Weight 66.31 kg Intake: IV 225 150 261 Intake, IV Amount 395.8 184.0 47.4 Lfa 60.9 60.9 17.4 Right Distal Port Femoral 120 105 30 Right Medial Port Femoral 89.9 18.1 Right Proximal Port 125 Femoral Tube Feeding 60 140 40 Output: Urine 695 575 55 Urethral (Mitchell) 695 575 55 Other: # Bowel Movements 0 0 - Physical Exam Physical Exam Limitations: Positive for: Other (sedated on propofol/precedex, agitated and not following commands during sedation vacation) Head: Positive for: Atraumatic, Normocephalic. Negative for: Tenderness, Contusion, Swelling Pupils: Negative for: Non-Reactive, Pinpoint Extroacular Muscles: Positive for: Other (not following commands for EOMI, but looking in all directions spontaneously while agitated, able to track staff throughout room when awake, so appears EOMI intact) Conjunctiva: Negative for: Injected, Icteric Mouth: Positive for: Moist Mucous Membranes, Other (ETT in place, significant secretions appreciated in tubing) Nose (External): Positive for: Atraumatic. Negative for: Abrasion, Contusion, Laceration Nose (Internal): Positive for: No Active Bleeding. Negative for: Epistaxis Neck: Positive for: Normal Range of Motion (passively, not following commands so unable to assess active ROM), Trachea Midline. Negative for: JVD Respiratory/Chest: Positive for: Decreased Breath Sounds (mildly decreased breath sounds in Left lower lobe), Rhonchi (diffusely ronchorous breath sounds inspiratory and expiratory), Other (intubated and mechanically ventilated). Negative for: Clear to Auscultation, Wheezes, Rales Cardiovascular: Positive for: Regular Rate and Rhythm, Normal S1, S2 Abdomen: Positive for: Normal Bowel Sounds. Negative for: Tenderness, Distention Upper Extremity: Positive for: Normal Inspection, NORMAL PULSES. Negative for: Cyanosis, Edema, Swelling, Erythema, Deformity Lower Extremity: Positive for: NORMAL PULSES. Negative for: Edema, Cyanosis, Swelling, Erythema, Deformity Neurological: Positive for: Other (intermittently awakes from sedation and exhibits spontaneous movements but doesn't follow commands, agitated and moving all extremities spontaneously on sedation vacation but still not following commands). Negative for: GCS=15 (GCS 9 ([id number])) Skin: Positive for: Warm, Dry, Normal Color. Negative for: Rashes - Medications Active Medications: Active Medications Generic Name Dose Route Start Last Admin Trade Name Freq PRN Reason Stop Dose Admin Acetaminophen 650 mg 12/08/17 20:40 Tylenol 325mg Tab PO Q6 PRN Pain, Mild (1-3) Amiodarone HCl 200 mg 12/13/17 11:45 12/14/17 11:21 Cordarone PO 200 mg DAILY ASPEN Administration Aspirin 81 mg 12/09/17 10:00 12/14/17 09:21 Ecotrin PO 81 mg DAILY ASPEN Administration Norepinephrine Bitartrate 4 mg 250 mls @ 18.75 mls/hr 12/12/17 08:53 03:00 / Dextrose IV 0 mcg/min .[id number] PRN 0 mls/hr TITRATE PER MD ORDER Titration Protocol 5 MCG/MIN Propofol 1,000 mg in 100 mls @ 1.878 mls/hr 12/12/17 09:47 12/15/17 07:26 Diprivan IV 39.93 mcg/kg/min .Q24H PRN 15 mls/hr TITRATE PER MD ORDER Administration Protocol 5 MCG/KG/MIN Heparin Sodium/Sodium Chloride 25,000 units in 250 mls @ 8.686 mls/hr 14:52 12/15/17 08:18 Heparin 02561 Units/250ml 1/2 Normal Saline IV 15 units/kg/hr .Q24H PRN 10.022 mls/hr ADJUST RATE PER PROTOCOL Titration Protocol 13 UNITS/KG/HR Sodium Chloride 1,000 mls @ 75 mls/hr 12/13/17 16:14 12/14/17 19:47 Sodium Chloride 0.9% IV 75 mls/hr .[id number] ASPEN Administration Pantoprazole Sodium 40 mg 12/12/17 11:15 12/14/17 09:21 Protonix Inj IVP 40 mg DAILY ASPEN Administration Rosuvastatin Calcium 5 mg 12/08/17 22:00 12/14/17 21:26 Crestor PO 5 mg HS ASPEN Administration Tamsulosin HCl 0.4 mg 12/12/17 13:30 12/14/17 09:21 Flomax PO 0.4 mg DAILY ASPEN Administration - Patient Studies Lab Studies: Lab Studies 12/15/17 12/15/17 12/15/17 Range/Units 06:18 06:16 06:13 WBC 10.5 (4.8-10.8) K/uL RBC 3.66 L (4.40-5.90) Mil/uL Hgb 11.2 L (12.0-18.0) g/dL Hct 33.1 L (35.0-51.0) % MCV 90.4 (80.0-94.0) fL MCH 30.5 (27.0-31.0) pg MCHC 33.8 (33.0-37.0) g/dL RDW 14.8 H (11.5-14.5) % Plt Count 129 L D (130-400) K/uL MPV 10.3 (7.2-11.7) fL Neut % (Auto) 83.5 H (50.0-75.0) % Lymph % (Auto) 5.2 L (20.0-40.0) % [place] % (Auto) 10.4 H (0.0-10.0) % Eos % (Auto) 0.4 (0.0-4.0) % Baso % (Auto) 0.5 (0.0-2.0) % Neut # (Auto) 8.8 H (1.8-7.0) K/uL Lymph # (Auto) 0.5 L (1.0-4.3) K/uL [place] # (Auto) 1.1 H (0.0-0.8) K/uL Eos # (Auto) 0.0 (0.0-0.7) K/uL Baso # (Auto) 0.1 (0.0-0.2) K/uL APTT 43 H D (21-34) SECONDS Puncture Site pCO2 (35-45) mm/Hg pO2 (80-100) mm/Hg HCO3 (21-28) mmol/L ABG pH (7.35-7.45) ABG Total CO2 (22-28) mmol/L ABG O2 Saturation (95-98) % ABG Base Excess (-2.0-3.0) mmol/L Maicol Test ABG Potassium (3.6-5.2) mmol/L A-a O2 Difference mm/Hg Respiratory Index Sodium 143 (132-148) mmol/l Chloride 103 (98-107) mmol/L Glucose (75-110) mg/dl Lactate (0.7-2.1) mmol/L Vent Mode Mechanical Rate FiO2 % Tidal Volume PEEP Potassium 4.5 (3.6-5.2) mmol/L Carbon Dioxide 33 H (22-30) mmol/L Anion Gap 11 (10-20) BUN 57 H (9-20) mg/dL Creatinine 1.5 (0.8-1.5) mg/dL Est GFR ( Amer) 56 Est GFR (Non-Af Amer) 46 POC Glucose (mg/dL) (65-110) mg/dL Random Glucose 118 H (75-110) mg/dL Calcium 8.4 L (8.6-10.4) mg/dl Phosphorus 3.9 (2.5-4.5) mg/dL Magnesium 2.5 H (1.6-2.3) mg/dL Total Bilirubin 0.7 (0.2-1.3) mg/dL AST 33 (17-59) U/L ALT 45 (21-72) U/L Alkaline Phosphatase 57 (38-126) U/L Total Protein 6.3 (6.3-8.3) g/dL Albumin 3.4 L (3.5-5.0) g/dL Globulin 2.8 (2.2-3.9) gm/dL Albumin/Globulin Ratio 1.2 (1.0-2.1) Arterial Blood Potassium (3.6-5.2) mmol/L Digitoxin ng/mL 12/15/17 12/15/17 12/14/17 Range/Units 05:30 04:56 23:23 WBC (4.8-10.8) K/uL RBC (4.40-5.90) Mil/uL Hgb (12.0-18.0) g/dL Hct (35.0-51.0) % MCV (80.0-94.0) fL MCH (27.0-31.0) pg MCHC (33.0-37.0) g/dL RDW (11.5-14.5) % Plt Count (130-400) K/uL MPV (7.2-11.7) fL Neut % (Auto) (50.0-75.0) % Lymph % (Auto) (20.0-40.0) % [place] % (Auto) (0.0-10.0) % Eos % (Auto) (0.0-4.0) % Baso % (Auto) (0.0-2.0) % Neut # (Auto) (1.8-7.0) K/uL Lymph # (Auto) (1.0-4.3) K/uL [place] # (Auto) (0.0-0.8) K/uL Eos # (Auto) (0.0-0.7) K/uL Baso # (Auto) (0.0-0.2) K/uL APTT (21-34) SECONDS Puncture Site Rr pCO2 47 H (35-45) mm/Hg pO2 122 H (80-100) mm/Hg HCO3 29.5 H (21-28) mmol/L ABG pH 7.43 (7.35-7.45) ABG Total CO2 32.6 H (22-28) mmol/L ABG O2 Saturation 98.6 H (95-98) % ABG Base Excess 5.8 H (-2.0-3.0) mmol/L Maicol Test Pos ABG Potassium 4.2 (3.6-5.2) mmol/L A-a O2 Difference 247.0 mm/Hg Respiratory Index 2.0 Sodium 140.0 (132-148) mmol/l Chloride 108.0 H (98-107) mmol/L Glucose 111 H (75-110) mg/dl Lactate 0.8 (0.7-2.1) mmol/L Vent Mode Prvc Mechanical Rate 16 FiO2 60.0 % Tidal Volume 500 PEEP 5 Potassium (3.6-5.2) mmol/L Carbon Dioxide (22-30) mmol/L Anion Gap (10-20) BUN (9-20) mg/dL Creatinine (0.8-1.5) mg/dL Est GFR ( Amer) Est GFR (Non-Af Amer) POC Glucose (mg/dL) 118 H 101 (65-110) mg/dL Random Glucose (75-110) mg/dL Calcium (8.6-10.4) mg/dl Phosphorus (2.5-4.5) mg/dL Magnesium (1.6-2.3) mg/dL Total Bilirubin (0.2-1.3) mg/dL AST (17-59) U/L ALT (21-72) U/L Alkaline Phosphatase (38-126) U/L Total Protein (6.3-8.3) g/dL Albumin (3.5-5.0) g/dL Globulin (2.2-3.9) gm/dL Albumin/Globulin Ratio (1.0-2.1) Arterial Blood Potassium 4.2 (3.6-5.2) mmol/L Digitoxin ng/mL 12/14/17 12/14/17 12/14/17 Range/Units 17:51 11:41 05:24 WBC (4.8-10.8) K/uL RBC (4.40-5.90) Mil/uL Hgb (12.0-18.0) g/dL Hct (35.0-51.0) % MCV (80.0-94.0) fL MCH (27.0-31.0) pg MCHC (33.0-37.0) g/dL RDW (11.5-14.5) % Plt Count (130-400) K/uL MPV (7.2-11.7) fL Neut % (Auto) (50.0-75.0) % Lymph % (Auto) (20.0-40.0) % [place] % (Auto) (0.0-10.0) % Eos % (Auto) (0.0-4.0) % Baso % (Auto) (0.0-2.0) % Neut # (Auto) (1.8-7.0) K/uL Lymph # (Auto) (1.0-4.3) K/uL [place] # (Auto) (0.0-0.8) K/uL Eos # (Auto) (0.0-0.7) K/uL Baso # (Auto) (0.0-0.2) K/uL APTT (21-34) SECONDS Puncture Site pCO2 (35-45) mm/Hg pO2 (80-100) mm/Hg HCO3 (21-28) mmol/L ABG pH (7.35-7.45) ABG Total CO2 (22-28) mmol/L ABG O2 Saturation (95-98) % ABG Base Excess (-2.0-3.0) mmol/L Maicol Test ABG Potassium (3.6-5.2) mmol/L A-a O2 Difference mm/Hg Respiratory Index Sodium (132-148) mmol/l Chloride (98-107) mmol/L Glucose (75-110) mg/dl Lactate (0.7-2.1) mmol/L Vent Mode Mechanical Rate FiO2 % Tidal Volume PEEP Potassium (3.6-5.2) mmol/L Carbon Dioxide (22-30) mmol/L Anion Gap (10-20) BUN (9-20) mg/dL Creatinine (0.8-1.5) mg/dL Est GFR ( Amer) Est GFR (Non-Af Amer) POC Glucose (mg/dL) 133 H 107 146 H (65-110) mg/dL Random Glucose (75-110) mg/dL Calcium (8.6-10.4) mg/dl Phosphorus (2.5-4.5) mg/dL Magnesium (1.6-2.3) mg/dL Total Bilirubin (0.2-1.3) mg/dL AST (17-59) U/L ALT (21-72) U/L Alkaline Phosphatase (38-126) U/L Total Protein (6.3-8.3) g/dL Albumin (3.5-5.0) g/dL Globulin (2.2-3.9) gm/dL Albumin/Globulin Ratio (1.0-2.1) Arterial Blood Potassium (3.6-5.2) mmol/L Digitoxin ng/mL 12/13/17 12/09/17 Range/Units 23:38 07:46 WBC (4.8-10.8) K/uL RBC (4.40-5.90) Mil/uL Hgb (12.0-18.0) g/dL Hct (35.0-51.0) % MCV (80.0-94.0) fL MCH (27.0-31.0) pg MCHC (33.0-37.0) g/dL RDW (11.5-14.5) % Plt Count (130-400) K/uL MPV (7.2-11.7) fL Neut % (Auto) (50.0-75.0) % Lymph % (Auto) (20.0-40.0) % [place] % (Auto) (0.0-10.0) % Eos % (Auto) (0.0-4.0) % Baso % (Auto) (0.0-2.0) % Neut # (Auto) (1.8-7.0) K/uL Lymph # (Auto) (1.0-4.3) K/uL [place] # (Auto) (0.0-0.8) K/uL Eos # (Auto) (0.0-0.7) K/uL Baso # (Auto) (0.0-0.2) K/uL APTT (21-34) SECONDS Puncture Site pCO2 (35-45) mm/Hg pO2 (80-100) mm/Hg HCO3 (21-28) mmol/L ABG pH (7.35-7.45) ABG Total CO2 (22-28) mmol/L ABG O2 Saturation (95-98) % ABG Base Excess (-2.0-3.0) mmol/L Maicol Test ABG Potassium (3.6-5.2) mmol/L A-a O2 Difference mm/Hg Respiratory Index Sodium (132-148) mmol/l Chloride (98-107) mmol/L Glucose (75-110) mg/dl Lactate (0.7-2.1) mmol/L Vent Mode Mechanical Rate FiO2 % Tidal Volume PEEP Potassium (3.6-5.2) mmol/L Carbon Dioxide (22-30) mmol/L Anion Gap (10-20) BUN (9-20) mg/dL Creatinine (0.8-1.5) mg/dL Est GFR ( Amer) Est GFR (Non-Af Amer) POC Glucose (mg/dL) 113 H (65-110) mg/dL Random Glucose (75-110) mg/dL Calcium (8.6-10.4) mg/dl Phosphorus (2.5-4.5) mg/dL Magnesium (1.6-2.3) mg/dL Total Bilirubin (0.2-1.3) mg/dL AST (17-59) U/L ALT (21-72) U/L Alkaline Phosphatase (38-126) U/L Total Protein (6.3-8.3) g/dL Albumin (3.5-5.0) g/dL Globulin (2.2-3.9) gm/dL Albumin/Globulin Ratio (1.0-2.1) Arterial Blood Potassium (3.6-5.2) mmol/L Digitoxin None detected ng/mL Laboratory Results - last 24 hr 12/09/17 12/13/17 12/14/17 07:46 23:38 05:24 WBC RBC Hgb Hct MCV MCH MCHC RDW Plt Count MPV Neut % (Auto) Lymph % (Auto) [place] % (Auto) Eos % (Auto) Baso % (Auto) Neut # (Auto) Lymph # (Auto) [place] # (Auto) Eos # (Auto) Baso # (Auto) APTT Puncture Site pCO2 pO2 HCO3 ABG pH ABG Total CO2 ABG O2 Saturation ABG Base Excess Maicol Test ABG Potassium A-a O2 Difference Respiratory Index Sodium Chloride Glucose Lactate Vent Mode Mechanical Rate FiO2 Tidal Volume PEEP Potassium Carbon Dioxide Anion Gap BUN Creatinine Est GFR ( Amer) Est GFR (Non-Af Amer) POC Glucose (mg/dL) 113 H 146 H Random Glucose Calcium Phosphorus Magnesium Total Bilirubin AST ALT Alkaline Phosphatase Total Protein Albumin Globulin Albumin/Globulin Ratio Arterial Blood Potassium Digitoxin None detected 12/14/17 12/14/17 12/14/17 11:41 17:51 23:23 WBC RBC Hgb Hct MCV MCH MCHC RDW Plt Count MPV Neut % (Auto) Lymph % (Auto) [place] % (Auto) Eos % (Auto) Baso % (Auto) Neut # (Auto) Lymph # (Auto) [place] # (Auto) Eos # (Auto) Baso # (Auto) APTT Puncture Site pCO2 pO2 HCO3 ABG pH ABG Total CO2 ABG O2 Saturation ABG Base Excess Maicol Test ABG Potassium A-a O2 Difference Respiratory Index Sodium Chloride Glucose Lactate Vent Mode Mechanical Rate FiO2 Tidal Volume PEEP Potassium Carbon Dioxide Anion Gap BUN Creatinine Est GFR ( Amer) Est GFR (Non-Af Amer) POC Glucose (mg/dL) 107 133 H 101 Random Glucose Calcium Phosphorus Magnesium Total Bilirubin AST ALT Alkaline Phosphatase Total Protein Albumin Globulin Albumin/Globulin Ratio Arterial Blood Potassium Digitoxin 12/15/17 12/15/17 12/15/17 04:56 05:30 06:13 WBC RBC Hgb Hct MCV MCH MCHC RDW Plt Count MPV Neut % (Auto) Lymph % (Auto) [place] % (Auto) Eos % (Auto) Baso % (Auto) Neut # (Auto) Lymph # (Auto) [place] # (Auto) Eos # (Auto) Baso # (Auto) APTT Puncture Site Rr pCO2 47 H pO2 122 H HCO3 29.5 H ABG pH 7.43 ABG Total CO2 32.6 H ABG O2 Saturation 98.6 H ABG Base Excess 5.8 H Maicol Test Pos ABG Potassium 4.2 A-a O2 Difference 247.0 Respiratory Index 2.0 Sodium 140.0 143 Chloride 108.0 H 103 Glucose 111 H Lactate 0.8 Vent Mode Prvc Mechanical Rate 16 FiO2 60.0 Tidal Volume 500 PEEP 5 Potassium 4.5 Carbon Dioxide 33 H Anion Gap 11 BUN 57 H Creatinine 1.5 Est GFR ( Amer) 56 Est GFR (Non-Af Amer) 46 POC Glucose (mg/dL) 118 H Random Glucose 118 H Calcium 8.4 L Phosphorus 3.9 Magnesium 2.5 H Total Bilirubin 0.7 AST 33 ALT 45 Alkaline Phosphatase 57 Total Protein 6.3 Albumin 3.4 L Globulin 2.8 Albumin/Globulin Ratio 1.2 Arterial Blood Potassium 4.2 Digitoxin 12/15/17 12/15/17 06:16 06:18 WBC 10.5 RBC 3.66 L Hgb 11.2 L Hct 33.1 L MCV 90.4 MCH 30.5 MCHC 33.8 RDW 14.8 H Plt Count 129 L D MPV 10.3 Neut % (Auto) 83.5 H Lymph % (Auto) 5.2 L [place] % (Auto) 10.4 H Eos % (Auto) 0.4 Baso % (Auto) 0.5 Neut # (Auto) 8.8 H Lymph # (Auto) 0.5 L [place] # (Auto) 1.1 H Eos # (Auto) 0.0 Baso # (Auto) 0.1 APTT 43 H D Puncture Site pCO2 pO2 HCO3 ABG pH ABG Total CO2 ABG O2 Saturation ABG Base Excess Maicol Test ABG Potassium A-a O2 Difference Respiratory Index Sodium Chloride Glucose Lactate Vent Mode Mechanical Rate FiO2 Tidal Volume PEEP Potassium Carbon Dioxide Anion Gap BUN Creatinine Est GFR ( Amer) Est GFR (Non-Af Amer) POC Glucose (mg/dL) Random Glucose Calcium Phosphorus Magnesium Total Bilirubin AST ALT Alkaline Phosphatase Total Protein Albumin Globulin Albumin/Globulin Ratio Arterial Blood Potassium Digitoxin Fingerstick Blood Sugar Results: 118 Review of Systems - Review of Systems Systems not reviewed;Unavailable: Intubated Critical Care Progress Note - Nutrition Nutrition: Nutrition Category Date Time Status NPO Diet [DIET] Diets 12/12/17 Breakfast Active Assessment/Plan - Assessment and Plan (Free Text) Assessment: This is a 72 yo M with PMH of [place], Afib, PVD, CHF (EF 15-20%), and CAD s/p ACID who originally presented to with complaints of shortness of breath and genital swelling. He underwent stress test, which was positive, and then while undergoing cardiac cath, developed Vfib cardiac arrest, requiring 6 shocks and CPR, ROSC obtained and then transferred to the ICU. Remains mechanically ventilated due to failing multiple pressure support trials, but off pressors. Pending possible trach. Plan: Neuro: -Transitioned from Propofol to Precedex for sedation -maintain normothermia Pulm: -Failed another PS trial (x3 in total), Surgery consulted for Trach placement -Remains on PRVC, 350/5/16/60% -AM ABG reviewed and compared to prior, now high-normal pH with appropriate oxygenation, not retaining -maintain SPO2 > 92% -intermittently develops low volumes and high pressures, likely 2/2 repeated secretions plugging up airway chest PT ordered, continue aggressive suctioning, change tubing as needed -Aspiration precautions, head of bed to 30 degrees -CXR today reviewed; appears more congested today as compared to prior, small bilateral pleural effusions IVF NS stopped, Lasix 40mg IVP x1 ordered, will reassess on repeat CXR tomorrow CV: -remains off pressors, maintaining MAP > 65 -Trops x3 from 12/12-12/13: 0.656 -> 1.63 -> 1.5; appears to have peaked and started downtrending -appears fluid overloaded, Lasix IVP 40mg x1, IVF NS stopped, assess UOP s/p Lasix -Cardiology consulted, appreciate all recs; continue heparin for NSTEMI, wean pressors (completed), IV amio converted to PO, cath when stable -Continue Crestor, Heparin ggt, Aspirin daily -Echo 12/13 notable for EF 15-20%, severe impairment of LV systolic function, mild MR/TR/WA and Pulm HTN, Pacer lead in RV GI: -Continue tube feeds -Protonix for ppx -Monitor LFTs -Surg consult: no plan for surgery for hernia at this time as patient is too unstable Renal: -Urine output improved -Cr improved from 1.9 to 1.5, likely pre-renal CANDIDA from hypoperfusion 2/2 code -Due to appearance of fluid overload, will hold IVF and give IV lasix 40mg x1, monitor Cr and UOP and reassess -Strict I's and O's -Replete electrolytes as needed Endo: -Maintain euglycemia ID: -leukocytosis resolved, remains afebrile (last febrile temp 100.4F overnight from 12/13 into 12/14) -f/u septic work up; urine cx negative and nares MRSA negative -no indication for abx at this time, continue to monitor Dispo: ICU, Surgery consulted for Trach since unable to tolerate PS trials x3, pending reassessment of UOP and Cr after IV diuresis with Lasix x1 FEN: Tube feeds, IVF held Access: Peripheral IVs, R groin TLC Consults: Cardio, Surgery, ICU Ppx: Protonix for GI, Heparin drip covers for DVT Code Status: Unknow, so Full by default Seen, reviewed, and discussed with attending, Dr. Arguello <Manfred Arguello - Last Filed: 12/15/17 17:39> CCU Objective - Vital Signs / Intake & Output Vital Signs (Last 4 hours): Vital Signs Pulse Resp BP Pulse Ox 12/15/17 16:04 125/72 12/15/17 16:03 67 20 94 L 12/15/17 16:00 66 21 94 L 12/15/17 15:04 75 16 110/62 96 12/15/17 15:00 74 16 96 12/15/17 14:04 95 H 21 116/65 97 12/15/17 14:00 94 H 30 H 99 Intake and Output (Last 8hrs): Intake & Output 12/15/17 12/15/17 12/15/17 06:59 14:59 22:59 Intake Total 474.0 1056.0 91.9 Output Total 575 880 100 Balance -101.0 176.0 -8.1 Weight 146 lb 3 oz Intake: IV 150 365 30 Intake, IV Amount 184.0 516.0 31.9 Lfa 60.9 77.4 10 Right Antecubital 375 Right Distal Port Femoral 105 63.6 Right Medial Port Femoral 18.1 Right Proximal Femoral - 21.9 Distal Port Tube Feeding 140 175 30 Output: Urine 575 880 100 Urethral (Mitchell) 575 880 100 Other: # Bowel Movements 0 - Medications Active Medications: Active Medications Generic Name Dose Route Start Last Admin Trade Name Freq PRN Reason Stop Dose Admin Acetaminophen 650 mg 12/08/17 20:40 Tylenol 325mg Tab PO Q6 PRN Pain, Mild (1-3) Amiodarone HCl 200 mg 12/13/17 11:45 12/15/17 09:37 Cordarone PO 200 mg DAILY ASPEN Administration Aspirin 81 mg 12/09/17 10:00 09/15/18 09:37 Ecotrin PO 81 mg DAILY ASPEN Administration Heparin Sodium/Sodium Chloride 25,000 units in 250 mls @ 8.686 mls/hr 14:52 12/15/17 10:23 Heparin 67096 Units/250ml 1/2 Normal Saline IV 15 units/kg/hr .Q24H PRN 10.022 mls/hr ADJUST RATE PER PROTOCOL Administration Protocol 13 UNITS/KG/HR Dexmedetomidine HCl 200 mcg/ 50 mls @ 3.31 mls/hr 12/15/17 13:31 12/15/17 16: 30 Sodium Chloride IV 1.32 mcg/kg/hr TITR PRN 21.9 mls/hr Agitation Titration Protocol 0.2 MCG/KG/HR Pantoprazole Sodium 40 mg 12/12/17 11:15 12/15/17 09:37 Protonix Inj IVP 40 mg DAILY ASPEN Administration Polyethylene Glycol 17 gm 12/15/17 16:00 12/15/17 16:24 Miralax NG 17 gm DAILY ASPEN Administration Rosuvastatin Calcium 5 mg 12/08/17 22:00 12/14/17 21:26 Crestor PO 5 mg HS ASPEN Administration Tamsulosin HCl 0.4 mg 12/12/17 13:30 12/15/17 09:37 Flomax PO 0.4 mg DAILY ASPEN Administration - Patient Studies Lab Studies: Lab Studies 12/15/17 12/15/17 12/15/17 Range/Units 17:26 14:20 11:21 WBC (4.8-10.8) K/uL RBC (4.40-5.90) Mil/uL Hgb (12.0-18.0) g/dL Hct (35.0-51.0) % MCV (80.0-94.0) fL MCH (27.0-31.0) pg MCHC (33.0-37.0) g/dL RDW (11.5-14.5) % Plt Count (130-400) K/uL MPV (7.2-11.7) fL Neut % (Auto) (50.0-75.0) % Lymph % (Auto) (20.0-40.0) % [place] % (Auto) (0.0-10.0) % Eos % (Auto) (0.0-4.0) % Baso % (Auto) (0.0-2.0) % Neut # (Auto) (1.8-7.0) K/uL Lymph # (Auto) (1.0-4.3) K/uL [place] # (Auto) (0.0-0.8) K/uL Eos # (Auto) (0.0-0.7) K/uL Baso # (Auto) (0.0-0.2) K/uL Neutrophils % (Manual) (50-75) % Band Neutrophils % (0-2) % Lymphocytes % (Manual) (20-40) % Monocytes % (Manual) (0-10) % Platelet Estimate (NORMAL) Anisocytosis (manual) APTT 56 H D (21-34) SECONDS Puncture Site pCO2 (35-45) mm/Hg pO2 (80-100) mm/Hg HCO3 (21-28) mmol/L ABG pH (7.35-7.45) ABG Total CO2 (22-28) mmol/L ABG O2 Saturation (95-98) % ABG Base Excess (-2.0-3.0) mmol/L Maicol Test ABG Potassium (3.6-5.2) mmol/L A-a O2 Difference mm/Hg Respiratory Index Sodium (132-148) mmol/l Chloride (98-107) mmol/L Glucose (75-110) mg/dl Lactate (0.7-2.1) mmol/L Vent Mode Mechanical Rate FiO2 % Tidal Volume PEEP Potassium (3.6-5.2) mmol/L Carbon Dioxide (22-30) mmol/L Anion Gap (10-20) BUN (9-20) mg/dL Creatinine (0.8-1.5) mg/dL Est GFR ( Amer) Est GFR (Non-Af Amer) POC Glucose (mg/dL) 125 H 127 H (65-110) mg/dL Random Glucose (75-110) mg/dL Calcium (8.6-10.4) mg/dl Phosphorus (2.5-4.5) mg/dL Magnesium (1.6-2.3) mg/dL Total Bilirubin (0.2-1.3) mg/dL AST (17-59) U/L ALT (21-72) U/L Alkaline Phosphatase (38-126) U/L Total Protein (6.3-8.3) g/dL Albumin (3.5-5.0) g/dL Globulin (2.2-3.9) gm/dL Albumin/Globulin Ratio (1.0-2.1) Arterial Blood Potassium (3.6-5.2) mmol/L 12/15/17 12/15/17 12/15/17 Range/Units 06:18 06:16 06:13 WBC 10.5 (4.8-10.8) K/uL RBC 3.66 L (4.40-5.90) Mil/uL Hgb 11.2 L (12.0-18.0) g/dL Hct 33.1 L (35.0-51.0) % MCV 90.4 (80.0-94.0) fL MCH 30.5 (27.0-31.0) pg MCHC 33.8 (33.0-37.0) g/dL RDW 14.8 H (11.5-14.5) % Plt Count 129 L D (130-400) K/uL MPV 10.3 (7.2-11.7) fL Neut % (Auto) 83.5 H (50.0-75.0) % Lymph % (Auto) 5.2 L (20.0-40.0) % [place] % (Auto) 10.4 H (0.0-10.0) % Eos % (Auto) 0.4 (0.0-4.0) % Baso % (Auto) 0.5 (0.0-2.0) % Neut # (Auto) 8.8 H (1.8-7.0) K/uL Lymph # (Auto) 0.5 L (1.0-4.3) K/uL [place] # (Auto) 1.1 H (0.0-0.8) K/uL Eos # (Auto) 0.0 (0.0-0.7) K/uL Baso # (Auto) 0.1 (0.0-0.2) K/uL Neutrophils % (Manual) 82 H (50-75) % Band Neutrophils % 3 H (0-2) % Lymphocytes % (Manual) 6 L (20-40) % Monocytes % (Manual) 9 (0-10) % Platelet Estimate Normal (NORMAL) Anisocytosis (manual) Slight APTT 43 H D (21-34) SECONDS Puncture Site pCO2 (35-45) mm/Hg pO2 (80-100) mm/Hg HCO3 (21-28) mmol/L ABG pH (7.35-7.45) ABG Total CO2 (22-28) mmol/L ABG O2 Saturation (95-98) % ABG Base Excess (-2.0-3.0) mmol/L Maicol Test ABG Potassium (3.6-5.2) mmol/L A-a O2 Difference mm/Hg Respiratory Index Sodium 143 (132-148) mmol/l Chloride 103 (98-107) mmol/L Glucose (75-110) mg/dl Lactate (0.7-2.1) mmol/L Vent Mode Mechanical Rate FiO2 % Tidal Volume PEEP Potassium 4.5 (3.6-5.2) mmol/L Carbon Dioxide 33 H (22-30) mmol/L Anion Gap 11 (10-20) BUN 57 H (9-20) mg/dL Creatinine 1.5 (0.8-1.5) mg/dL Est GFR ( Amer) 56 Est GFR (Non-Af Amer) 46 POC Glucose (mg/dL) (65-110) mg/dL Random Glucose 118 H (75-110) mg/dL Calcium 8.4 L (8.6-10.4) mg/dl Phosphorus 3.9 (2.5-4.5) mg/dL Magnesium 2.5 H (1.6-2.3) mg/dL Total Bilirubin 0.7 (0.2-1.3) mg/dL AST 33 (17-59) U/L ALT 45 (21-72) U/L Alkaline Phosphatase 57 (38-126) U/L Total Protein 6.3 (6.3-8.3) g/dL Albumin 3.4 L (3.5-5.0) g/dL Globulin 2.8 (2.2-3.9) gm/dL Albumin/Globulin Ratio 1.2 (1.0-2.1) Arterial Blood Potassium (3.6-5.2) mmol/L 12/15/17 12/15/17 12/14/17 Range/Units 05:30 04:56 23:23 WBC (4.8-10.8) K/uL RBC (4.40-5.90) Mil/uL Hgb (12.0-18.0) g/dL Hct (35.0-51.0) % MCV (80.0-94.0) fL MCH (27.0-31.0) pg MCHC (33.0-37.0) g/dL RDW (11.5-14.5) % Plt Count (130-400) K/uL MPV (7.2-11.7) fL Neut % (Auto) (50.0-75.0) % Lymph % (Auto) (20.0-40.0) % [place] % (Auto) (0.0-10.0) % Eos % (Auto) (0.0-4.0) % Baso % (Auto) (0.0-2.0) % Neut # (Auto) (1.8-7.0) K/uL Lymph # (Auto) (1.0-4.3) K/uL [place] # (Auto) (0.0-0.8) K/uL Eos # (Auto) (0.0-0.7) K/uL Baso # (Auto) (0.0-0.2) K/uL Neutrophils % (Manual) (50-75) % Band Neutrophils % (0-2) % Lymphocytes % (Manual) (20-40) % Monocytes % (Manual) (0-10) % Platelet Estimate (NORMAL) Anisocytosis (manual) APTT (21-34) SECONDS Puncture Site Rr pCO2 47 H (35-45) mm/Hg pO2 122 H (80-100) mm/Hg HCO3 29.5 H (21-28) mmol/L ABG pH 7.43 (7.35-7.45) ABG Total CO2 32.6 H (22-28) mmol/L ABG O2 Saturation 98.6 H (95-98) % ABG Base Excess 5.8 H (-2.0-3.0) mmol/L Maicol Test Pos ABG Potassium 4.2 (3.6-5.2) mmol/L A-a O2 Difference 247.0 mm/Hg Respiratory Index 2.0 Sodium 140.0 (132-148) mmol/l Chloride 108.0 H (98-107) mmol/L Glucose 111 H (75-110) mg/dl Lactate 0.8 (0.7-2.1) mmol/L Vent Mode Prvc Mechanical Rate 16 FiO2 60.0 % Tidal Volume 500 PEEP 5 Potassium (3.6-5.2) mmol/L Carbon Dioxide (22-30) mmol/L Anion Gap (10-20) BUN (9-20) mg/dL Creatinine (0.8-1.5) mg/dL Est GFR ( Amer) Est GFR (Non-Af Amer) POC Glucose (mg/dL) 118 H 101 (65-110) mg/dL Random Glucose (75-110) mg/dL Calcium (8.6-10.4) mg/dl Phosphorus (2.5-4.5) mg/dL Magnesium (1.6-2.3) mg/dL Total Bilirubin (0.2-1.3) mg/dL AST (17-59) U/L ALT (21-72) U/L Alkaline Phosphatase (38-126) U/L Total Protein (6.3-8.3) g/dL Albumin (3.5-5.0) g/dL Globulin (2.2-3.9) gm/dL Albumin/Globulin Ratio (1.0-2.1) Arterial Blood Potassium 4.2 (3.6-5.2) mmol/L 12/14/17 Range/Units 17:51 WBC (4.8-10.8) K/uL RBC (4.40-5.90) Mil/uL Hgb (12.0-18.0) g/dL Hct (35.0-51.0) % MCV (80.0-94.0) fL MCH (27.0-31.0) pg MCHC (33.0-37.0) g/dL RDW (11.5-14.5) % Plt Count (130-400) K/uL MPV (7.2-11.7) fL Neut % (Auto) (50.0-75.0) % Lymph % (Auto) (20.0-40.0) % [place] % (Auto) (0.0-10.0) % Eos % (Auto) (0.0-4.0) % Baso % (Auto) (0.0-2.0) % Neut # (Auto) (1.8-7.0) K/uL Lymph # (Auto) (1.0-4.3) K/uL [place] # (Auto) (0.0-0.8) K/uL Eos # (Auto) (0.0-0.7) K/uL Baso # (Auto) (0.0-0.2) K/uL Neutrophils % (Manual) (50-75) % Band Neutrophils % (0-2) % Lymphocytes % (Manual) (20-40) % Monocytes % (Manual) (0-10) % Platelet Estimate (NORMAL) Anisocytosis (manual) APTT (21-34) SECONDS Puncture Site pCO2 (35-45) mm/Hg pO2 (80-100) mm/Hg HCO3 (21-28) mmol/L ABG pH (7.35-7.45) ABG Total CO2 (22-28) mmol/L ABG O2 Saturation (95-98) % ABG Base Excess (-2.0-3.0) mmol/L Maicol Test ABG Potassium (3.6-5.2) mmol/L A-a O2 Difference mm/Hg Respiratory Index Sodium (132-148) mmol/l Chloride (98-107) mmol/L Glucose (75-110) mg/dl Lactate (0.7-2.1) mmol/L Vent Mode Mechanical Rate FiO2 % Tidal Volume PEEP Potassium (3.6-5.2) mmol/L Carbon Dioxide (22-30) mmol/L Anion Gap (10-20) BUN (9-20) mg/dL Creatinine (0.8-1.5) mg/dL Est GFR ( Amer) Est GFR (Non-Af Amer) POC Glucose (mg/dL) 133 H (65-110) mg/dL Random Glucose (75-110) mg/dL Calcium (8.6-10.4) mg/dl Phosphorus (2.5-4.5) mg/dL Magnesium (1.6-2.3) mg/dL Total Bilirubin (0.2-1.3) mg/dL AST (17-59) U/L ALT (21-72) U/L Alkaline Phosphatase (38-126) U/L Total Protein (6.3-8.3) g/dL Albumin (3.5-5.0) g/dL Globulin (2.2-3.9) gm/dL Albumin/Globulin Ratio (1.0-2.1) Arterial Blood Potassium (3.6-5.2) mmol/L Laboratory Results - last 24 hr 12/14/17 12/14/17 12/15/17 17:51 23:23 04:56 WBC RBC Hgb Hct MCV MCH MCHC RDW Plt Count MPV Neut % (Auto) Lymph % (Auto) [place] % (Auto) Eos % (Auto) Baso % (Auto) Neut # (Auto) Lymph # (Auto) [place] # (Auto) Eos # (Auto) Baso # (Auto) Neutrophils % (Manual) Band Neutrophils % Lymphocytes % (Manual) Monocytes % (Manual) Platelet Estimate Anisocytosis (manual) APTT Puncture Site pCO2 pO2 HCO3 ABG pH ABG Total CO2 ABG O2 Saturation ABG Base Excess Maicol Test ABG Potassium A-a O2 Difference Respiratory Index Sodium Chloride Glucose Lactate Vent Mode Mechanical Rate FiO2 Tidal Volume PEEP Potassium Carbon Dioxide Anion Gap BUN Creatinine Est GFR ( Amer) Est GFR (Non-Af Amer) POC Glucose (mg/dL) 133 H 101 118 H Random Glucose Calcium Phosphorus Magnesium Total Bilirubin AST ALT Alkaline Phosphatase Total Protein Albumin Globulin Albumin/Globulin Ratio Arterial Blood Potassium 12/15/17 12/15/17 12/15/17 05:30 06:13 06:16 WBC RBC Hgb Hct MCV MCH MCHC RDW Plt Count MPV Neut % (Auto) Lymph % (Auto) [place] % (Auto) Eos % (Auto) Baso % (Auto) Neut # (Auto) Lymph # (Auto) [place] # (Auto) Eos # (Auto) Baso # (Auto) Neutrophils % (Manual) Band Neutrophils % Lymphocytes % (Manual) Monocytes % (Manual) Platelet Estimate Anisocytosis (manual) APTT 43 H D Puncture Site Rr pCO2 47 H pO2 122 H HCO3 29.5 H ABG pH 7.43 ABG Total CO2 32.6 H ABG O2 Saturation 98.6 H ABG Base Excess 5.8 H Maicol Test Pos ABG Potassium 4.2 A-a O2 Difference 247.0 Respiratory Index 2.0 Sodium 140.0 143 Chloride 108.0 H 103 Glucose 111 H Lactate 0.8 Vent Mode Prvc Mechanical Rate 16 FiO2 60.0 Tidal Volume 500 PEEP 5 Potassium 4.5 Carbon Dioxide 33 H Anion Gap 11 BUN 57 H Creatinine 1.5 Est GFR ( Amer) 56 Est GFR (Non-Af Amer) 46 POC Glucose (mg/dL) Random Glucose 118 H Calcium 8.4 L Phosphorus 3.9 Magnesium 2.5 H Total Bilirubin 0.7 AST 33 ALT 45 Alkaline Phosphatase 57 Total Protein 6.3 Albumin 3.4 L Globulin 2.8 Albumin/Globulin Ratio 1.2 Arterial Blood Potassium 4.2 12/15/17 12/15/17 12/15/17 06:18 11:21 14:20 WBC 10.5 RBC 3.66 L Hgb 11.2 L Hct 33.1 L MCV 90.4 MCH 30.5 MCHC 33.8 RDW 14.8 H Plt Count 129 L D MPV 10.3 Neut % (Auto) 83.5 H Lymph % (Auto) 5.2 L [place] % (Auto) 10.4 H Eos % (Auto) 0.4 Baso % (Auto) 0.5 Neut # (Auto) 8.8 H Lymph # (Auto) 0.5 L [place] # (Auto) 1.1 H Eos # (Auto) 0.0 Baso # (Auto) 0.1 Neutrophils % (Manual) 82 H Band Neutrophils % 3 H Lymphocytes % (Manual) 6 L Monocytes % (Manual) 9 Platelet Estimate Normal Anisocytosis (manual) Slight APTT 56 H D Puncture Site pCO2 pO2 HCO3 ABG pH ABG Total CO2 ABG O2 Saturation ABG Base Excess Maicol Test ABG Potassium A-a O2 Difference Respiratory Index Sodium Chloride Glucose Lactate Vent Mode Mechanical Rate FiO2 Tidal Volume PEEP Potassium Carbon Dioxide Anion Gap BUN Creatinine Est GFR ( Amer) Est GFR (Non-Af Amer) POC Glucose (mg/dL) 127 H Random Glucose Calcium Phosphorus Magnesium Total Bilirubin AST ALT Alkaline Phosphatase Total Protein Albumin Globulin Albumin/Globulin Ratio Arterial Blood Potassium 12/15/17 17:26 WBC RBC Hgb Hct MCV MCH MCHC RDW Plt Count MPV Neut % (Auto) Lymph % (Auto) [place] % (Auto) Eos % (Auto) Baso % (Auto) Neut # (Auto) Lymph # (Auto) [place] # (Auto) Eos # (Auto) Baso # (Auto) Neutrophils % (Manual) Band Neutrophils % Lymphocytes % (Manual) Monocytes % (Manual) Platelet Estimate Anisocytosis (manual) APTT Puncture Site pCO2 pO2 HCO3 ABG pH ABG Total CO2 ABG O2 Saturation ABG Base Excess Maicol Test ABG Potassium A-a O2 Difference Respiratory Index Sodium Chloride Glucose Lactate Vent Mode Mechanical Rate FiO2 Tidal Volume PEEP Potassium Carbon Dioxide Anion Gap BUN Creatinine Est GFR ( Amer) Est GFR (Non-Af Amer) POC Glucose (mg/dL) 125 H Random Glucose Calcium Phosphorus Magnesium Total Bilirubin AST ALT Alkaline Phosphatase Total Protein Albumin Globulin Albumin/Globulin Ratio Arterial Blood Potassium Critical Care Progress Note - Nutrition Nutrition: Nutrition Category Date Time Status NPO Diet [DIET] Diets 12/12/17 Breakfast Active Attending/Attestation - Attestation I have personally seen and examined this patient.: Yes I have fully participated in the care of the patient.: Yes I have reviewed all pertinent clinical information: Yes Notes (Text): 12/15/17 17:38 I have seen and examined the patient. Medical records, lab studies, and imaging were reviewed by me and a management plan was formulated on multidisciplinary rounds with resident Dr. Baptiste. I agree with their documented assessment and plan. Patient is still failing PS trials, will need trach. Titrated off of levophed. Patient will still need eventual cardiac cath. Critical Care Time 35 minutes. Multi-disciplinary rounds were performed with house staff, nursing, speech therapy, respiratory therapy, pharmacy and nutrition with integrated input from the primary team/attending and other consulting services. The documented time is cumulative and includes review of patient data/exams/labs/chart review and examination of the patient on rounds and throughout the day; time is exclusive of any procedures or teaching time.
[2017-12-15 09:25] LABS: BANDS 3 % (0-2); LYMPHOCYTE 6 % (20-40); MONOCYTE 9 % (0-10); NEUTROPHIL 82 % (50-75); TOTAL CELLS COUNTED 100
[2017-12-15 09:26] LABS: ANISOCYTOSIS SLIGHT; PLATELET ESTIMATE NORMAL (NORMAL)
[2017-12-15] MEDS: Sodium Chloride 0.9% 1,000 ML IV SCH (09:31)
[2017-12-15] MEDS: Heparin25000 units/250ml 1/2NS 25,000 UNITS/250 ML BAG IV PRN (10:23)
--- NOTE | 2017-12-15 10:49 | RAD ---
Date of service: 12/15/2017 HISTORY: vent/ff-up COMPARISON: Chest radiograph dated 12/14/2017 FINDINGS: LUNGS: Pulmonary vascular congestion. Bibasilar atelectasis. PLEURA: Left larger than right small bilateral pleural effusions. No appreciable pneumothorax. CARDIOVASCULAR: Left subclavian access AICD/pacemaker redemonstrated. Atherosclerotic aortic calcifications. Cardiomediastinal silhouette stably enlarged. OSSEOUS STRUCTURES: Unchanged. VISUALIZED UPPER ABDOMEN: Normal. OTHER FINDINGS: Endotracheal and enteric tubes, unchanged. IMPRESSION: Small bilateral pleural effusions, left greater than right.
[2017-12-15] MEDS: Dexmedetomidine Hydrochloride 200 MCG in Sodium Chloride 0.9% 48 ML IV PRN ×4 (13:57→21:26)
[2017-12-15] MEDS: POLYETHYLENE GLYCOL 3350 17 GM/Dose PACKET NG SCH (16:24)
--- NOTE | 2017-12-15 23:10 | CP.PCM.PN ---
Subjective - Date & Time of Evaluation Date of Evaluation: 12/15/17 Time of Evaluation: 11:50 - Subjective Subjective: Patient seen and evaluated On Ventilator Not in distress Failed CPAP trial Objective - Vital Signs/Intake and Output Vital Signs (last 24 hours): Temp Pulse Resp BP Pulse Ox 98.4 F 67 16 150/82 99 12/15/17 20:00 12/15/17 22:00 12/15/17 22:00 12/15/17 21:14 12/15/17 22:00 Intake and Output: 12/15/17 12/16/17 18:59 06:59 Intake Total 1483.6 301.7 Output Total 1280 410 Balance 203.6 -108.3 - Medications Medications: Current Medications Acetaminophen (Tylenol 325mg Tab) 650 mg PO Q6 PRN PRN Reason: Pain, Mild (1-3) Amiodarone HCl (Cordarone) 200 mg PO DAILY [facility] Last Admin: 12/15/17 09:37 Dose: 200 mg Aspirin (Ecotrin) 81 mg PO DAILY [facility] Last Admin: 12/15/17 09:37 Dose: 81 mg Heparin Sodium/Sodium Chloride (Heparin 90238 Units/250ml 1/2 Normal Saline) 25 ,000 units in 250 mls @ 8.686 mls/hr IV .Q24H PRN; Protocol; 13 UNITS/KG/HR PRN Reason: ADJUST RATE PER PROTOCOL Last Admin: 12/15/17 10:23 Dose: 15 units/kg/hr, 10.022 mls/hr Dexmedetomidine HCl 200 mcg/ (Sodium Chloride) 50 mls @ 3.31 mls/hr IV TITR PRN ; Protocol; 0.2 MCG/KG/HR PRN Reason: Agitation Last Admin: 12/15/17 21:26 Dose: 1 mcg/kg/hr, 16.57 mls/hr Pantoprazole Sodium (Protonix Inj) 40 mg IVP DAILY [facility] Last Admin: 12/15/17 09:37 Dose: 40 mg Polyethylene Glycol (Miralax) 17 gm NG DAILY [facility] Last Admin: 12/15/17 16:24 Dose: 17 gm Rosuvastatin Calcium (Crestor) 5 mg PO HS [facility] Last Admin: 12/15/17 21:28 Dose: 5 mg Tamsulosin HCl (Flomax) 0.4 mg PO DAILY [facility] Last Admin: 12/15/17 09:37 Dose: 0.4 mg - Labs Labs: 12/15/17 06:18 12/15/17 06:13 PT 12.1 SECONDS (9.7-12.2) 12/12/17 12:11 INR 1.1 12/12/17 12:11 APTT 52 SECONDS (21-34) H 12/15/17 20:40
[2017-12-16] MEDS: Dexmedetomidine Hydrochloride 200 MCG in Sodium Chloride 0.9% 48 ML IV PRN ×7 (00:32→21:17)
[2017-12-16 05:59] LABS: ABG ALLEN TEST POS; ARTERIAL BLOOD GAS HCO3 29.5 mmol/L (21-28); ARTERIAL BLOOD GAS HEMOGLOBIN 12.4 g/dL (11.7-17.4); ARTERIAL BLOOD GAS O2 SAT 98.7 % (95-98); ARTERIAL BLOOD GAS PCO2 47 mm/Hg (35-45); ARTERIAL BLOOD GAS PH 7.43 (7.35-7.45); ARTERIAL BLOOD GAS PO2 102 mm/Hg (80-100); ARTERIAL BLOOD GAS TCO2 32.6 mmol/L (22-28)
[2017-12-16 06:38] LABS: BASO % 0.2 % (0.0-2.0); HEMOGLOBIN 12.1 g/dL (12.0-18.0); LYMPH # 0.3 K/uL (1.0-4.3); LYMPH % 2.8 % (20.0-40.0); MEAN CELL VOLUME 90.8 fL (80.0-94.0); MEAN CORPUSCULAR HEMOGLOBIN 29.8 pg (27.0-31.0); MEAN CORPUSCULAR HGB CONC 32.9 g/dL (33.0-37.0); MEAN PLATELET VOLUME 11.2 fL (7.2-11.7); MONO # 0.9 K/uL (0.0-0.8); MONO % 8.5 % (0.0-10.0); NEUT # 9.8 K/uL (1.8-7.0); NEUT % 88.5 % (50.0-75.0); PLATELET COUNT 138 K/uL (130-400); RBC 4.05 Mil/uL (4.40-5.90); RED CELL DISTRIBUTION WIDTH 14.8 % (11.5-14.5)
[2017-12-16 07:00] LABS: INR 1.1; PROTHROMBIN TIME 11.5 SECONDS (9.7-12.2)
[2017-12-16 07:02] LABS: ALBUMIN 3.4 g/dL (3.5-5.0); ALT/SGPT 42 U/L (21-72); AST/SGOT 35 U/L (17-59); BLOOD UREA NITROGEN 56 mg/dL (9-20); CALCIUM 8.8 mg/dl (8.6-10.4); GFR NON-AFRICAN AMERICAN 54
--- NOTE | 2017-12-16 08:36 | CP.PCM.PN ---
Subjective - Date & Time of Evaluation Date of Evaluation: 12/16/17 Time of Evaluation: 08:33 - Subjective Subjective: Surgery Pt seen and examined. Intubated. AAO x3. Able to nod yes and no. On PEEP of 5. No pressers. Objective - Vital Signs/Intake and Output Vital Signs (last 24 hours): Temp Pulse Resp BP Pulse Ox 99.4 F 66 14 146/70 99 12/16/17 08:00 12/16/17 08:00 12/16/17 08:00 12/16/17 07:59 12/16/17 08:00 Intake and Output: 12/16/17 12/16/17 06:59 18:59 Intake Total 944.5 10 Output Total 805 Balance 139.5 10 - Medications Medications: Current Medications Acetaminophen (Tylenol 325mg Tab) 650 mg PO Q6 PRN PRN Reason: Pain, Mild (1-3) Amiodarone HCl (Cordarone) 200 mg PO DAILY [facility] Last Admin: 12/15/17 09:37 Dose: 200 mg Aspirin (Ecotrin) 81 mg PO DAILY [facility] Last Admin: 12/15/17 09:37 Dose: 81 mg Heparin Sodium/Sodium Chloride (Heparin 02494 Units/250ml 1/2 Normal Saline) 25,000 units in 250 mls @ 8.686 mls/hr IV .Q24H PRN; Protocol; 13 UNITS/KG/HR PRN Reason: ADJUST RATE PER PROTOCOL Last Admin: 12/15/17 10:23 Dose: 15 units/kg/hr, 10.022 mls/hr Dexmedetomidine HCl 200 mcg/ (Sodium Chloride) 50 mls @ 3.31 mls/hr IV TITR PRN; Protocol; 0.2 MCG/KG/HR PRN Reason: Agitation Last Admin: 12/16/17 07:53 Dose: 0.8 mcg/kg/hr, 13.26 mls/hr Pantoprazole Sodium (Protonix Inj) 40 mg IVP DAILY [facility] Last Admin: 12/15/17 09:37 Dose: 40 mg Polyethylene Glycol (Miralax) 17 gm NG DAILY [facility] Last Admin: 12/15/17 16:24 Dose: 17 gm Rosuvastatin Calcium (Crestor) 5 mg PO HS [facility] Last Admin: 12/15/17 21:28 Dose: 5 mg Tamsulosin HCl (Flomax) 0.4 mg PO DAILY [facility] Last Admin: 12/15/17 09:37 Dose: 0.4 mg - Labs Labs: 12/16/17 06:20 12/16/17 06:27 PT 11.5 SECONDS (9.7-12.2) 12/16/17 06:20 INR 1.1 12/16/17 06:20 APTT 45 SECONDS (21-34) H D 12/16/17 06:20 - Constitutional Appears: In Acute Distress - Head Exam Head Exam: ATRAUMATIC, NORMAL INSPECTION, NORMOCEPHALIC - Eye Exam Eye Exam: EOMI, Normal appearance, PERRL Pupil Exam: NORMAL ACCOMODATION, PERRL - ENT Exam ENT Exam: Mucous Membranes Moist, Normal Exam Additional comments: Intubated. - Neck Exam Neck Exam: Full ROM, Normal Inspection. absent: Lymphadenopathy - Respiratory Exam Respiratory Exam: Respiratory Distress - Cardiovascular Exam Cardiovascular Exam: REGULAR RHYTHM - GI/Abdominal Exam GI & Abdominal Exam: Soft. absent: Distended, Tenderness - Exam Additional comments: Hernia - Extremities Exam Extremities Exam: Normal Inspection. absent: Joint Swelling, Pedal Edema - Back Exam Back Exam: NORMAL INSPECTION - Neurological Exam Neurological Exam: Alert, Awake, CN II-XII Intact, Oriented x3 - Psychiatric Exam Psychiatric exam: Normal Affect, Normal Mood - Skin Skin Exam: Dry, Intact, Normal Color, Warm Assessment and Plan - Assessment and Plan (Free Text) Assessment: Respiratory failure needing vent support Off pressers -Will plan on Tracheostomy Sunday -NPO -OFf pressers -Keep PEEP below 15 -Will obtain consent DW Dr. Fox
[2017-12-16] MEDS ORDERED: Albumin Human 5% (12.5 gm/250 ml) IV SCH (09:00)
[2017-12-16] MEDS: POLYETHYLENE GLYCOL 3350 17 GM/Dose PACKET NG SCH (09:09)
[2017-12-16 09:25] LABS: BANDS 2 % (0-2); EOSINOPHIL 2 % (0-4); NEUTROPHIL 85 % (50-75); TOTAL CELLS COUNTED 100
[2017-12-16 09:26] LABS: ANISOCYTOSIS SLIGHT; LYMPHOCYTE 4 % (20-40); MONOCYTE 7 % (0-10); PLATELET ESTIMATE NORMAL (NORMAL)
--- NOTE | 2017-12-16 11:59 | RAD ---
Date of service: 12/16/2017 HISTORY: on vent, chf COMPARISON: Chest radiograph dated 12/15/2017 FINDINGS: LUNGS: Pulmonary vascular congestion. Bibasilar atelectasis. . PLEURA: Small bilateral pleural effusions, left larger than right. No appreciable pneumothorax. CARDIOVASCULAR: Left subclavian access AICD/ pacemaker redemonstrated. Atherosclerotic aortic calcification. Cardiomediastinal silhouette stably enlarged. OSSEOUS STRUCTURES: Unchanged. VISUALIZED UPPER ABDOMEN: Normal. OTHER FINDINGS: Endotracheal and enteric tubes, unchanged. IMPRESSION: Stable tubes and lines. Pulmonary vascular congestion small bilateral pleural effusions, left larger than right. No significant interval change.
--- NOTE | 2017-12-16 14:22 | CP.CCUPN ---
CCU Subjective - Physician Review Events Since Last Encounter (Free Text): 12/16/17 14:16 alert and following commands. CCU Objective - Vital Signs / Intake & Output Vital Signs (Last 4 hours): Vital Signs Temp Pulse Resp BP Pulse Ox 12/16/17 13:00 70 16 99 12/16/17 12:59 71 16 125/65 99 12/16/17 12:00 99.6 F 69 16 123/67 100 12/16/17 11:00 68 14 100 12/16/17 10:59 69 10 L 136/69 100 12/16/17 10:53 131/74 Intake and Output (Last 8hrs): Intake & Output 12/15/17 12/16/17 12/16/17 22:59 06:59 14:59 Intake Total 729.3 642.8 748.1 Output Total 810 395 520 Balance -80.7 247.8 228.1 Weight 120 lb 6 oz Intake: IV 120 140 60 Intake, IV Amount 239.3 222.8 243.1 Left Forearm 10 Lfa 80 80 Right Distal Port Femoral 50 Right Medial Port Femoral 93.1 Right Proximal Femoral - 159.3 132.8 Distal Port Right Proximal Port 100 Femoral Oral 200 Tube Feeding 270 280 245 Other 100 Output: Urine 810 395 520 Urethral (Banda) 810 395 520 Other: # Bowel Movements 0 0 0 - Physical Exam Head: Positive for: Atraumatic, Normocephalic. Negative for: Tenderness, Contusion, Swelling Pupils: Negative for: Non-Reactive, Pinpoint Extroacular Muscles: Positive for: Other (not following commands for EOMI, but looking in all directions spontaneously while agitated, able to track staff throughout room when awake, so appears EOMI intact) Conjunctiva: Negative for: Injected, Icteric Mouth: Positive for: Moist Mucous Membranes, Other (ETT in place, significant secretions appreciated in tubing) Nose (External): Positive for: Atraumatic. Negative for: Abrasion, Contusion, Laceration Nose (Internal): Positive for: No Active Bleeding. Negative for: Epistaxis Neck: Positive for: Normal Range of Motion (passively, not following commands so unable to assess active ROM), Trachea Midline. Negative for: JVD Respiratory/Chest: Positive for: Decreased Breath Sounds (mildly decreased breath sounds in Left lower lobe), Rhonchi (diffusely ronchorous breath sounds inspiratory and expiratory), Other (intubated and mechanically ventilated). Negative for: Clear to Auscultation, Wheezes, Rales Cardiovascular: Positive for: Regular Rate and Rhythm, Normal S1, S2 Abdomen: Positive for: Normal Bowel Sounds. Negative for: Tenderness, Distention Upper Extremity: Positive for: Normal Inspection, NORMAL PULSES. Negative for: Cyanosis, Edema, Swelling, Erythema, Deformity Lower Extremity: Positive for: NORMAL PULSES. Negative for: Edema, Cyanosis, Swelling, Erythema, Deformity Neurological: Positive for: Other (intermittently awakes from sedation and exhibits spontaneous movements but doesn't follow commands, agitated and moving all extremities spontaneously on sedation vacation but still not following commands). Negative for: GCS=15 (GCS 9 ([id number])) Skin: Positive for: Warm, Dry, Normal Color. Negative for: Rashes - Medications Active Medications: Active Medications Generic Name Dose Route Start Last Admin Trade Name Freq PRN Reason Stop Dose Admin Acetaminophen 650 mg 12/08/17 20:40 Tylenol 325mg Tab PO Q6 PRN Pain, Mild (1-3) Amiodarone HCl 200 mg 12/13/17 11:45 12/16/17 09:09 Cordarone PO 200 mg DAILY [facility] Administration Aspirin 81 mg 12/09/17 10:00 12/16/17 09:09 Ecotrin PO 81 mg DAILY [facility] Administration Enoxaparin Sodium 40 mg 12/17/17 10:00 Lovenox SC DAILY [facility] Furosemide 40 mg 12/16/17 10:00 12/16/17 10:53 Lasix IVP 40 mg Q12H [facility] Administration Dexmedetomidine HCl 200 mcg/ 50 mls @ 3.31 mls/hr 12/15/17 13:31 12/16/17 10: 14 Sodium Chloride IV 0.8 mcg/kg/hr TITR PRN 13.26 mls/hr Agitation Administration Protocol 0.2 MCG/KG/HR Albumin Human 500 mls @ 25 mls/hr 12/16/17 10:00 12/16/17 09:45 Albutein 5% 500 Ml IVPB 12/17/17 05:59 25 mls/hr ONCE ONE Administration Pantoprazole Sodium 40 mg 12/12/17 11:15 12/16/17 10:53 Protonix Inj IVP 40 mg DAILY [facility] Administration Polyethylene Glycol 17 gm 12/15/17 16:00 12/16/17 09:09 Miralax NG 17 gm DAILY [facility] Administration Rosuvastatin Calcium 5 mg 12/08/17 22:00 12/15/17 21:28 Crestor PO 5 mg HS [facility] Administration Tamsulosin HCl 0.4 mg 12/12/17 13:30 12/16/17 09:09 Flomax PO 0.4 mg DAILY [facility] Administration - Patient Studies Lab Studies: Lab Studies 12/16/17 12/16/17 12/16/17 Range/Units 06:27 06:20 06:20 WBC 11.0 H (4.8-10.8) K/uL RBC 4.05 L (4.40-5.90) Mil/uL Hgb 12.1 (12.0-18.0) g/dL Hct 36.8 (35.0-51.0) % MCV 90.8 (80.0-94.0) fL MCH 29.8 (27.0-31.0) pg MCHC 32.9 L (33.0-37.0) g/dL RDW 14.8 H (11.5-14.5) % Plt Count 138 (130-400) K/uL MPV 11.2 (7.2-11.7) fL Neut % (Auto) 88.5 H (50.0-75.0) % Lymph % (Auto) 2.8 L (20.0-40.0) % [place] % (Auto) 8.5 (0.0-10.0) % Eos % (Auto) 0.0 (0.0-4.0) % Baso % (Auto) 0.2 (0.0-2.0) % Neut # (Auto) 9.8 H (1.8-7.0) K/uL Lymph # (Auto) 0.3 L (1.0-4.3) K/uL [place] # (Auto) 0.9 H (0.0-0.8) K/uL Eos # (Auto) 0.0 (0.0-0.7) K/uL Baso # (Auto) 0.0 (0.0-0.2) K/uL Neutrophils % (Manual) 85 H (50-75) % Band Neutrophils % 2 (0-2) % Lymphocytes % (Manual) 4 L (20-40) % Monocytes % (Manual) 7 (0-10) % Eosinophils % (Manual) 2 (0-4) % Platelet Estimate Normal (NORMAL) Anisocytosis (manual) Slight PT 11.5 (9.7-12.2) SECONDS INR 1.1 APTT 45 H D (21-34) SECONDS Puncture Site pCO2 (35-45) mm/Hg pO2 (80-100) mm/Hg HCO3 (21-28) mmol/L ABG pH (7.35-7.45) ABG Total CO2 (22-28) mmol/L ABG O2 Saturation (95-98) % ABG Base Excess (-2.0-3.0) mmol/L ABG Hemoglobin (11.7-17.4) g/dL ABG Carboxyhemoglobin (0.5-1.5) % POC ABG HHb (Measured) (0.0-5.0) % ABG Methemoglobin (0.0-3.0) % Maicol Test A-a O2 Difference mm/Hg Respiratory Index Hgb O2 Saturation (95.0-98.0) % Vent Mode Mechanical Rate FiO2 % Tidal Volume PEEP Sodium 149 H (132-148) mmol/L Potassium 5.0 (3.6-5.2) mmol/L Chloride 107 (98-107) mmol/L Carbon Dioxide 32 H (22-30) mmol/L Anion Gap 15 (10-20) BUN 56 H (9-20) mg/dL Creatinine 1.3 (0.8-1.5) mg/dL Est GFR ( Amer) > 60 Est GFR (Non-Af Amer) 54 POC Glucose (mg/dL) (65-110) mg/dL Random Glucose 183 H (75-110) mg/dL Calcium 8.8 (8.6-10.4) mg/dl Phosphorus 4.3 (2.5-4.5) mg/dL Magnesium 3.0 H (1.6-2.3) mg/dL Total Bilirubin 1.1 (0.2-1.3) mg/dL AST 35 (17-59) U/L ALT 42 (21-72) U/L Alkaline Phosphatase 70 (38-126) U/L Total Protein 6.7 (6.3-8.3) g/dL Albumin 3.4 L (3.5-5.0) g/dL Globulin 3.3 (2.2-3.9) gm/dL Albumin/Globulin Ratio 1.0 (1.0-2.1) 12/16/17 12/16/17 12/15/17 Range/Units 05:35 04:59 23:29 WBC (4.8-10.8) K/uL RBC (4.40-5.90) Mil/uL Hgb (12.0-18.0) g/dL Hct (35.0-51.0) % MCV (80.0-94.0) fL MCH (27.0-31.0) pg MCHC (33.0-37.0) g/dL RDW (11.5-14.5) % Plt Count (130-400) K/uL MPV (7.2-11.7) fL Neut % (Auto) (50.0-75.0) % Lymph % (Auto) (20.0-40.0) % [place] % (Auto) (0.0-10.0) % Eos % (Auto) (0.0-4.0) % Baso % (Auto) (0.0-2.0) % Neut # (Auto) (1.8-7.0) K/uL Lymph # (Auto) (1.0-4.3) K/uL [place] # (Auto) (0.0-0.8) K/uL Eos # (Auto) (0.0-0.7) K/uL Baso # (Auto) (0.0-0.2) K/uL Neutrophils % (Manual) (50-75) % Band Neutrophils % (0-2) % Lymphocytes % (Manual) (20-40) % Monocytes % (Manual) (0-10) % Eosinophils % (Manual) (0-4) % Platelet Estimate (NORMAL) Anisocytosis (manual) PT (9.7-12.2) SECONDS INR APTT (21-34) SECONDS Puncture Site Rr pCO2 47 H (35-45) mm/Hg pO2 102 H (80-100) mm/Hg HCO3 29.5 H (21-28) mmol/L ABG pH 7.43 (7.35-7.45) ABG Total CO2 32.6 H (22-28) mmol/L ABG O2 Saturation 98.7 H (95-98) % ABG Base Excess 5.9 H (-2.0-3.0) mmol/L ABG Hemoglobin 12.4 (11.7-17.4) g/dL ABG Carboxyhemoglobin 1.5 (0.5-1.5) % POC ABG HHb (Measured) 1.3 (0.0-5.0) % ABG Methemoglobin 1.1 (0.0-3.0) % Maicol Test Pos A-a O2 Difference 267.0 mm/Hg Respiratory Index 2.6 Hgb O2 Saturation 96.1 (95.0-98.0) % Vent Mode Prvc Mechanical Rate 16 FiO2 60.0 % Tidal Volume 500 PEEP 5 Sodium (132-148) mmol/L Potassium (3.6-5.2) mmol/L Chloride (98-107) mmol/L Carbon Dioxide (22-30) mmol/L Anion Gap (10-20) BUN (9-20) mg/dL Creatinine (0.8-1.5) mg/dL Est GFR ( Amer) Est GFR (Non-Af Amer) POC Glucose (mg/dL) 170 H 115 H (65-110) mg/dL Random Glucose (75-110) mg/dL Calcium (8.6-10.4) mg/dl Phosphorus (2.5-4.5) mg/dL Magnesium (1.6-2.3) mg/dL Total Bilirubin (0.2-1.3) mg/dL AST (17-59) U/L ALT (21-72) U/L Alkaline Phosphatase (38-126) U/L Total Protein (6.3-8.3) g/dL Albumin (3.5-5.0) g/dL Globulin (2.2-3.9) gm/dL Albumin/Globulin Ratio (1.0-2.1) 12/15/17 12/15/17 12/15/17 Range/Units 20:40 17:26 14:20 WBC (4.8-10.8) K/uL RBC (4.40-5.90) Mil/uL Hgb (12.0-18.0) g/dL Hct (35.0-51.0) % MCV (80.0-94.0) fL MCH (27.0-31.0) pg MCHC (33.0-37.0) g/dL RDW (11.5-14.5) % Plt Count (130-400) K/uL MPV (7.2-11.7) fL Neut % (Auto) (50.0-75.0) % Lymph % (Auto) (20.0-40.0) % [place] % (Auto) (0.0-10.0) % Eos % (Auto) (0.0-4.0) % Baso % (Auto) (0.0-2.0) % Neut # (Auto) (1.8-7.0) K/uL Lymph # (Auto) (1.0-4.3) K/uL [place] # (Auto) (0.0-0.8) K/uL Eos # (Auto) (0.0-0.7) K/uL Baso # (Auto) (0.0-0.2) K/uL Neutrophils % (Manual) (50-75) % Band Neutrophils % (0-2) % Lymphocytes % (Manual) (20-40) % Monocytes % (Manual) (0-10) % Eosinophils % (Manual) (0-4) % Platelet Estimate (NORMAL) Anisocytosis (manual) PT (9.7-12.2) SECONDS INR APTT 52 H 56 H D (21-34) SECONDS Puncture Site pCO2 (35-45) mm/Hg pO2 (80-100) mm/Hg HCO3 (21-28) mmol/L ABG pH (7.35-7.45) ABG Total CO2 (22-28) mmol/L ABG O2 Saturation (95-98) % ABG Base Excess (-2.0-3.0) mmol/L ABG Hemoglobin (11.7-17.4) g/dL ABG Carboxyhemoglobin (0.5-1.5) % POC ABG HHb (Measured) (0.0-5.0) % ABG Methemoglobin (0.0-3.0) % Maicol Test A-a O2 Difference mm/Hg Respiratory Index Hgb O2 Saturation (95.0-98.0) % Vent Mode Mechanical Rate FiO2 % Tidal Volume PEEP Sodium (132-148) mmol/L Potassium (3.6-5.2) mmol/L Chloride (98-107) mmol/L Carbon Dioxide (22-30) mmol/L Anion Gap (10-20) BUN (9-20) mg/dL Creatinine (0.8-1.5) mg/dL Est GFR ( Amer) Est GFR (Non-Af Amer) POC Glucose (mg/dL) 125 H (65-110) mg/dL Random Glucose (75-110) mg/dL Calcium (8.6-10.4) mg/dl Phosphorus (2.5-4.5) mg/dL Magnesium (1.6-2.3) mg/dL Total Bilirubin (0.2-1.3) mg/dL AST (17-59) U/L ALT (21-72) U/L Alkaline Phosphatase (38-126) U/L Total Protein (6.3-8.3) g/dL Albumin (3.5-5.0) g/dL Globulin (2.2-3.9) gm/dL Albumin/Globulin Ratio (1.0-2.1) Laboratory Results - last 24 hr 12/15/17 12/15/17 12/15/17 14:20 17:26 20:40 WBC RBC Hgb Hct MCV MCH MCHC RDW Plt Count MPV Neut % (Auto) Lymph % (Auto) [place] % (Auto) Eos % (Auto) Baso % (Auto) Neut # (Auto) Lymph # (Auto) [place] # (Auto) Eos # (Auto) Baso # (Auto) Neutrophils % (Manual) Band Neutrophils % Lymphocytes % (Manual) Monocytes % (Manual) Eosinophils % (Manual) Platelet Estimate Anisocytosis (manual) PT INR APTT 56 H D 52 H Puncture Site pCO2 pO2 HCO3 ABG pH ABG Total CO2 ABG O2 Saturation ABG Base Excess ABG Hemoglobin ABG Carboxyhemoglobin POC ABG HHb (Measured) ABG Methemoglobin Maicol Test A-a O2 Difference Respiratory Index Hgb O2 Saturation Vent Mode Mechanical Rate FiO2 Tidal Volume PEEP Sodium Potassium Chloride Carbon Dioxide Anion Gap BUN Creatinine Est GFR ( Amer) Est GFR (Non-Af Amer) POC Glucose (mg/dL) 125 H Random Glucose Calcium Phosphorus Magnesium Total Bilirubin AST ALT Alkaline Phosphatase Total Protein Albumin Globulin Albumin/Globulin Ratio 0912/16/17 12/16/17 23:29 04:59 05:35 WBC RBC Hgb Hct MCV MCH MCHC RDW Plt Count MPV Neut % (Auto) Lymph % (Auto) [place] % (Auto) Eos % (Auto) Baso % (Auto) Neut # (Auto) Lymph # (Auto) [place] # (Auto) Eos # (Auto) Baso # (Auto) Neutrophils % (Manual) Band Neutrophils % Lymphocytes % (Manual) Monocytes % (Manual) Eosinophils % (Manual) Platelet Estimate Anisocytosis (manual) PT INR APTT Puncture Site Rr pCO2 47 H pO2 102 H HCO3 29.5 H ABG pH 7.43 ABG Total CO2 32.6 H ABG O2 Saturation 98.7 H ABG Base Excess 5.9 H ABG Hemoglobin 12.4 ABG Carboxyhemoglobin 1.5 POC ABG HHb (Measured) 1.3 ABG Methemoglobin 1.1 Maicol Test Pos A-a O2 Difference 267.0 Respiratory Index 2.6 Hgb O2 Saturation 96.1 Vent Mode Prvc Mechanical Rate 16 FiO2 60.0 Tidal Volume 500 PEEP 5 Sodium Potassium Chloride Carbon Dioxide Anion Gap BUN Creatinine Est GFR ( Amer) Est GFR (Non-Af Amer) POC Glucose (mg/dL) 115 H 170 H Random Glucose Calcium Phosphorus Magnesium Total Bilirubin AST ALT Alkaline Phosphatase Total Protein Albumin Globulin Albumin/Globulin Ratio 12/16/17 12/16/17 12/16/17 06:20 06:20 06:27 WBC 11.0 H RBC 4.05 L Hgb 12.1 Hct 36.8 MCV 90.8 MCH 29.8 MCHC 32.9 L RDW 14.8 H Plt Count 138 MPV 11.2 Neut % (Auto) 88.5 H Lymph % (Auto) 2.8 L [place] % (Auto) 8.5 Eos % (Auto) 0.0 Baso % (Auto) 0.2 Neut # (Auto) 9.8 H Lymph # (Auto) 0.3 L [place] # (Auto) 0.9 H Eos # (Auto) 0.0 Baso # (Auto) 0.0 Neutrophils % (Manual) 85 H Band Neutrophils % 2 Lymphocytes % (Manual) 4 L Monocytes % (Manual) 7 Eosinophils % (Manual) 2 Platelet Estimate Normal Anisocytosis (manual) Slight PT 11.5 INR 1.1 APTT 45 H D Puncture Site pCO2 pO2 HCO3 ABG pH ABG Total CO2 ABG O2 Saturation ABG Base Excess ABG Hemoglobin ABG Carboxyhemoglobin POC ABG HHb (Measured) ABG Methemoglobin Maicol Test A-a O2 Difference Respiratory Index Hgb O2 Saturation Vent Mode Mechanical Rate FiO2 Tidal Volume PEEP Sodium 149 H Potassium 5.0 Chloride 107 Carbon Dioxide 32 H Anion Gap 15 BUN 56 H Creatinine 1.3 Est GFR ( Amer) > 60 Est GFR (Non-Af Amer) 54 POC Glucose (mg/dL) Random Glucose 183 H Calcium 8.8 Phosphorus 4.3 Magnesium 3.0 H Total Bilirubin 1.1 AST 35 ALT 42 Alkaline Phosphatase 70 Total Protein 6.7 Albumin 3.4 L Globulin 3.3 Albumin/Globulin Ratio 1.0 Fingerstick Blood Sugar Results: 179 Review of Systems - Review of Systems Systems not reviewed;Unavailable: Intubated Critical Care Progress Note - Ventilator Checklist Head of Bed 30 Degrees: Yes Daily Sedation Vacation: Yes Daily Assessment of Readiness to Wean: Yes Daily Spontaneous Breathing Trial: Yes PUD Prophalyxis: Yes DVT Prophylaxis: Yes - Nutrition Nutrition: Nutrition Category Date Time Status NPO Diet [DIET] Diets 12/12/17 Breakfast Active Assessment/Plan (1) Cardiac arrest Assessment and plan: This is a 72 yo M with PMH of ID, Afib, PVD, CHF (EF 15-20%), and CAD s/p ACID who originally presented to with complaints of shortness of breath and genital swelling. He underwent stress test, which was positive, and then while undergoing cardiac cath, developed Vfib cardiac arrest, requiring 6 shocks and CPR, ROSC obtained and then transferred to the ICU. Remains mechanically ventilated due to failing multiple pressure support trials, but off pressors. Pending possible trach. Neuro: alert and following commands. Pulm: acute respiratory failure, on vent. Failing PS trials repeatedly. Scheduling for a trach on Sunday. Continuing diuresis in the hope of optimizing for extubation, but unsure if this will work. CV: hemodynamically stable. titrated off of pressors. patient still needs cardiac cath. continue amiodarone for rhythm control. Hem: anemia of chronic disease. ASA for CAD. Renal: diuresing with albumin drip and lasix IV q12h. Endo: no acute issues. GI: NPO, Jevity ID: no acute issues DVT proph - lovenox GI proph - protonix IV banda for strict I/O's during acute illness Code status - full code Critical Care Time spent 35 minutes Multi-disciplinary rounds were performed with house staff, nursing, speech therapy, respiratory therapy, pharmacy and nutrition with integrated input from the primary team/attending and other consulting services. The documented time is cumulative and includes review of patient data/exams/labs/chart review and examination of the patient on rounds and throughout the day; time is exclusive of any procedures or teaching time. Current Visit: Yes Status: Acute
--- NOTE | 2017-12-16 20:46 | CP.PCM.PN ---
Subjective - Date & Time of Evaluation Date of Evaluation: 12/16/17 Time of Evaluation: 20:44 - Subjective Subjective: Patient seen and evaluated Much better after IV Lasix started Probably may be extubatable tomorrow Patient not cleared for Trach from cardiac point of view Cardiac cath tomroow at 4pm NPO anfter except meds after noon Acute on Chronic systolic CHF s/p V Fib arrest Objective - Vital Signs/Intake and Output Vital Signs (last 24 hours): Temp Pulse Resp BP Pulse Ox 98.2 F 84 14 110/68 97 12/16/17 20:00 12/16/17 20:00 12/16/17 20:00 12/16/17 20:00 12/16/17 20:00 Intake and Output: 12/16/17 12/17/17 18:59 06:59 Intake Total 1294.6 149.8 Output Total 960 175 Balance 334.6 -25.2 - Medications Medications: Current Medications Acetaminophen (Tylenol 325mg Tab) 650 mg PO Q6 PRN PRN Reason: Pain, Mild (1-3) Amiodarone HCl (Cordarone) 200 mg PO DAILY [facility] Last Admin: 12/16/17 09:09 Dose: 200 mg Aspirin (Ecotrin) 81 mg PO DAILY [facility] Last Admin: 12/16/17 09:09 Dose: 81 mg Enoxaparin Sodium (Lovenox) 40 mg SC DAILY [facility] Furosemide (Lasix) 40 mg IVP Q12H [facility] Last Admin: 12/16/17 10:53 Dose: 40 mg Dexmedetomidine HCl 200 mcg/ (Sodium Chloride) 50 mls @ 3.31 mls/hr IV TITR PRN ; Protocol; 0.2 MCG/KG/HR PRN Reason: Agitation Last Admin: 12/16/17 18:16 Dose: 0.8 mcg/kg/hr, 13.26 mls/hr Albumin Human (Albutein 5% 500 Ml) 500 mls @ 25 mls/hr IVPB ONCE ONE Stop: 12/17/17 05:59 Last Admin: 12/16/17 09:45 Dose: 25 mls/hr Pantoprazole Sodium (Protonix Inj) 40 mg IVP DAILY [facility] Last Admin: 12/16/17 10:53 Dose: 40 mg Polyethylene Glycol (Miralax) 17 gm NG DAILY [facility] Last Admin: 12/16/17 09:09 Dose: 17 gm Rosuvastatin Calcium (Crestor) 5 mg PO HS [facility] Last Admin: 12/15/17 21:28 Dose: 5 mg Tamsulosin HCl (Flomax) 0.4 mg PO DAILY [facility] Last Admin: 12/16/17 09:09 Dose: 0.4 mg - Labs Labs: 12/16/17 06:20 12/16/17 06:27 PT 11.5 SECONDS (9.7-12.2) 12/16/17 06:20 INR 1.1 12/16/17 06:20 APTT 45 SECONDS (21-34) H D 12/16/17 06:20
[2017-12-17] MEDS: Dexmedetomidine Hydrochloride 200 MCG in Sodium Chloride 0.9% 48 ML IV PRN ×7 (00:36→22:00)
[2017-12-17 05:54] LABS: ARTERIAL BLOOD GAS HCO3 35.5 mmol/L (21-28); ARTERIAL BLOOD GAS O2 SAT 96.5 % (95-98); ARTERIAL BLOOD GAS PCO2 38 mm/Hg (35-45); ARTERIAL BLOOD GAS PH 7.59 (7.35-7.45); ARTERIAL BLOOD GAS PO2 68 mm/Hg (80-100); ARTERIAL BLOOD GAS TCO2 37.7 mmol/L (22-28)
[2017-12-17 06:16] LABS: BASO % 0.1 % (0.0-2.0); HEMOGLOBIN 12.2 g/dL (12.0-18.0); LYMPH # 0.4 K/uL (1.0-4.3); LYMPH % 3.6 % (20.0-40.0); MEAN CELL VOLUME 91.3 fL (80.0-94.0); MEAN CORPUSCULAR HEMOGLOBIN 30.2 pg (27.0-31.0); MEAN CORPUSCULAR HGB CONC 33.1 g/dL (33.0-37.0); MEAN PLATELET VOLUME 10.8 fL (7.2-11.7); MONO # 1.4 K/uL (0.0-0.8); NEUT # 8.9 K/uL (1.8-7.0); NEUT % 83.3 % (50.0-75.0); PLATELET COUNT 146 K/uL (130-400); RBC 4.03 Mil/uL (4.40-5.90); RED CELL DISTRIBUTION WIDTH 14.8 % (11.5-14.5); WHITE BLOOD COUNT 10.7 K/uL (4.8-10.8)
[2017-12-17 06:23] LABS: INR 1.1; PROTHROMBIN TIME 12.2 SECONDS (9.7-12.2)
[2017-12-17 06:42] LABS: ALBUMIN 3.6 g/dL (3.5-5.0); ALT/SGPT 46 U/L (21-72); AST/SGOT 54 U/L (17-59); BLOOD UREA NITROGEN 61 mg/dL (9-20); CALCIUM 8.9 mg/dl (8.6-10.4); GFR NON-AFRICAN AMERICAN 54
--- NOTE | 2017-12-17 07:43 | CP.PCM.PN ---
Subjective - Date & Time of Evaluation Date of Evaluation: 12/17/17 Time of Evaluation: 07:41 - Subjective Subjective: General surgery progress note for Dr. Monet Hernandez, PGY-2 Pt S & E at bedside 0940 Pt intubated, sedated, arousable to verbal and tactile stimuli. PRVC RR 16, TV 500, PEEP 5, FiO2 45%. Pt attempting to speak around OGT & ETT. Objective - Vital Signs/Intake and Output Vital Signs (last 24 hours): Temp Pulse Resp BP Pulse Ox 98.7 F 89 16 128/69 95 12/17/17 04:00 12/17/17 06:00 12/17/17 06:00 12/17/17 04:59 12/17/17 06:00 Intake and Output: 12/17/17 12/17/17 06:59 18:59 Intake Total 1013.8 Output Total 1390 Balance -376.2 - Medications Medications: Current Medications Acetaminophen (Tylenol 325mg Tab) 650 mg PO Q6 PRN PRN Reason: Pain, Mild (1-3) Amiodarone HCl (Cordarone) 200 mg PO DAILY [facility] Last Admin: 12/16/17 09:09 Dose: 200 mg Aspirin (Ecotrin) 81 mg PO DAILY [facility] Last Admin: 12/16/17 09:09 Dose: 81 mg Enoxaparin Sodium (Lovenox) 40 mg SC DAILY [facility] Furosemide (Lasix) 40 mg IVP Q12H [facility] Last Admin: 12/16/17 21:57 Dose: 40 mg Dexmedetomidine HCl 200 mcg/ (Sodium Chloride) 50 mls @ 3.31 mls/hr IV TITR PRN; Protocol; 0.2 MCG/KG/HR PRN Reason: Agitation Last Admin: 12/17/17 05:22 Dose: 0.5 mcg/kg/hr, 8.28 mls/hr Pantoprazole Sodium (Protonix Inj) 40 mg IVP DAILY [facility] Last Admin: 12/16/17 10:53 Dose: 40 mg Polyethylene Glycol (Miralax) 17 gm NG DAILY [facility] Last Admin: 12/16/17 09:09 Dose: 17 gm Rosuvastatin Calcium (Crestor) 5 mg PO HS [facility] Last Admin: 12/16/17 21:57 Dose: 5 mg Tamsulosin HCl (Flomax) 0.4 mg PO DAILY [facility] Last Admin: 12/16/17 09:09 Dose: 0.4 mg - Labs Labs: 12/17/17 06:07 12/17/17 06:07 PT 12.2 SECONDS (9.7-12.2) 12/17/17 06:07 INR 1.1 12/17/17 06:07 APTT 30 SECONDS (21-34) D 12/17/17 06:07 - Constitutional Appears: Non-toxic, No Acute Distress - Head Exam Head Exam: ATRAUMATIC, NORMAL INSPECTION, NORMOCEPHALIC - Eye Exam Eye Exam: EOMI, Normal appearance - ENT Exam ENT Exam: Mucous Membranes Dry Additional comments: ETT & OGT in place - Respiratory Exam Respiratory Exam: NORMAL BREATHING PATTERN - Cardiovascular Exam Cardiovascular Exam: REGULAR RHYTHM, +S1, +S2 - GI/Abdominal Exam GI & Abdominal Exam: Soft, Hernia (Left inguinal hernia palpable in scrotum). absent: Distended, Firm, Guarding, Tenderness - Neurological Exam Neurological Exam: Awake Additional comments: intubated, sedated, arousable to verbal and tactile stimuli - Skin Skin Exam: Dry, Intact, Normal Color, Warm Assessment and Plan - Assessment and Plan (Free Text) Assessment: 72M s/p acute cardiac event with respiratory failure requiring correction mechanical ventilation Plan: Plan for Trach after cardiac clearance NPO Keep off pressors Keep PEEP <15 Will obtain consent Will DW Dr. Ruddy Hernandez, PGY-2
[2017-12-17 08:20] LABS: BANDS 7 % (0-2); LYMPHOCYTE 5 % (20-40); MONOCYTE 14 % (0-10); NEUTROPHIL 74 % (50-75); PLATELET ESTIMATE NORMAL (NORMAL); TOTAL CELLS COUNTED 100
[2017-12-17 08:21] LABS: OVALOCYTES SLIGHT
--- NOTE | 2017-12-17 08:53 | CP.CCUPN ---
CCU Subjective - Physician Review Subjective (Free Text): Critical care progress note: Pt seen and examined at bedside. No acute events overnight. Patient is still intubated on PRVC not tolerating PS trials, and sedated on precedex. Off of pressors at this time. Febrile this am to 102.7F. 12 Point ROS limited 2/2 intubation. CCU Objective - Vital Signs / Intake & Output Vital Signs (Last 4 hours): Vital Signs Pulse Resp BP Pulse Ox 12/17/17 07:02 85 17 120/66 12/17/17 07:00 88 18 12/17/17 06:00 89 16 95 12/17/17 05:00 82 25 H 95 12/17/17 04:59 128/69 Intake and Output (Last 8hrs): Intake & Output 12/16/17 12/17/17 12/17/17 22:59 06:59 14:59 Intake Total 789.4 647.6 43.3 Output Total 830 925 70 Balance -40.6 -277.4 -26.7 Weight 140 lb 6 oz Intake: IV 100 150 Intake, IV Amount 329.4 217.6 8.3 Right Distal Port Femoral 0 0 Right Medial Port Femoral 129.4 142.6 8.3 Right Proximal Port 200 75 0 Femoral Oral 80 Tube Feeding 280 280 35 Output: Urine 830 925 70 Urethral (Banda) 830 925 70 Other: # Bowel Movements 0 0 0 - Physical Exam Head: Positive for: Atraumatic, Normocephalic. Negative for: Tenderness, Contusion, Swelling Pupils: Negative for: Non-Reactive, Pinpoint Extroacular Muscles: Positive for: Other (not following commands for EOMI, but looking in all directions spontaneously while agitated, able to track staff throughout room when awake, so appears EOMI intact) Conjunctiva: Negative for: Injected, Icteric Mouth: Positive for: Moist Mucous Membranes, Other (ETT in place, significant secretions appreciated in tubing) Nose (External): Positive for: Atraumatic. Negative for: Abrasion, Contusion, Laceration Nose (Internal): Positive for: No Active Bleeding. Negative for: Epistaxis Neck: Positive for: Normal Range of Motion (passively, not following commands so unable to assess active ROM), Trachea Midline. Negative for: JVD Respiratory/Chest: Positive for: Decreased Breath Sounds (mildly decreased breath sounds in Left lower lobe), Rhonchi (diffusely ronchorous breath sounds inspiratory and expiratory), Other (intubated and mechanically ventilated). Negative for: Clear to Auscultation, Wheezes, Rales Cardiovascular: Positive for: Regular Rate and Rhythm, Normal S1, S2 Abdomen: Positive for: Normal Bowel Sounds. Negative for: Tenderness, Distention Upper Extremity: Positive for: Normal Inspection, NORMAL PULSES. Negative for: Cyanosis, Edema, Swelling, Erythema, Deformity Lower Extremity: Positive for: NORMAL PULSES. Negative for: Edema, Cyanosis, Swelling, Erythema, Deformity Neurological: Positive for: Other (intermittently awakes from sedation and exhibits spontaneous movements but doesn't follow commands, agitated and moving all extremities spontaneously on sedation vacation but still not following commands). Negative for: GCS=15 (GCS 9 ([id number])) Skin: Positive for: Warm, Dry, Normal Color. Negative for: Rashes - Medications Active Medications: Active Medications Generic Name Dose Route Start Last Admin Trade Name Freq PRN Reason Stop Dose Admin Acetaminophen 650 mg 12/08/17 20:40 Tylenol 325mg Tab PO Q6 PRN Pain, Mild (1-3) Amiodarone HCl 200 mg 12/13/17 11:45 12/16/17 09:09 Cordarone PO 200 mg DAILY ASPEN Administration Aspirin 81 mg 12/09/17 10:00 12/16/17 09:09 Ecotrin PO 81 mg DAILY ASPEN Administration Enoxaparin Sodium 40 mg 12/17/17 10:00 Lovenox SC DAILY ASPEN Furosemide 40 mg 12/16/17 10:00 12/16/17 21:57 Lasix IVP 40 mg Q12H ASPEN Administration Dexmedetomidine HCl 200 mcg/ 50 mls @ 3.31 mls/hr 12/15/17 13:31 12/17/17 05: 22 Sodium Chloride IV 0.5 mcg/kg/hr TITR PRN 8.28 mls/hr Agitation Administration Protocol 0.2 MCG/KG/HR Lorazepam 2 mg 12/17/17 09:00 12/17/17 08:31 Ativan IVP 12/17/17 09:01 2 mg ONCE ONE Administration Pantoprazole Sodium 40 mg 12/12/17 11:15 12/16/17 10:53 Protonix Inj IVP 40 mg DAILY ASPEN Administration Polyethylene Glycol 17 gm 12/15/17 16:00 12/16/17 09:09 Miralax NG 17 gm DAILY ASPEN Administration Rosuvastatin Calcium 5 mg 12/08/17 22:00 12/16/17 21:57 Crestor PO 5 mg HS ASPEN Administration Tamsulosin HCl 0.4 mg 12/12/17 13:30 12/16/17 09:09 Flomax PO 0.4 mg DAILY ASPEN Administration - Patient Studies Lab Studies: Lab Studies 12/17/17 12/17/17 12/17/17 Range/Units 06:07 06:07 06:07 WBC 10.7 (4.8-10.8) K/uL RBC 4.03 L (4.40-5.90) Mil/uL Hgb 12.2 (12.0-18.0) g/dL Hct 36.8 (35.0-51.0) % MCV 91.3 (80.0-94.0) fL MCH 30.2 (27.0-31.0) pg MCHC 33.1 (33.0-37.0) g/dL RDW 14.8 H (11.5-14.5) % Plt Count 146 (130-400) K/uL MPV 10.8 (7.2-11.7) fL Neut % (Auto) 83.3 H (50.0-75.0) % Lymph % (Auto) 3.6 L (20.0-40.0) % [place] % (Auto) 13.0 H (0.0-10.0) % Eos % (Auto) 0.0 (0.0-4.0) % Baso % (Auto) 0.1 (0.0-2.0) % Neut # (Auto) 8.9 H (1.8-7.0) K/uL Lymph # (Auto) 0.4 L (1.0-4.3) K/uL [place] # (Auto) 1.4 H (0.0-0.8) K/uL Eos # (Auto) 0.0 (0.0-0.7) K/uL Baso # (Auto) 0.0 (0.0-0.2) K/uL Neutrophils % (Manual) 74 (50-75) % Band Neutrophils % 7 H (0-2) % Lymphocytes % (Manual) 5 L (20-40) % Monocytes % (Manual) 14 H (0-10) % Eosinophils % (Manual) (0-4) % Platelet Estimate Normal (NORMAL) Anisocytosis (manual) Ovalocytes Slight PT 12.2 (9.7-12.2) SECONDS INR 1.1 APTT 30 D (21-34) SECONDS Puncture Site pCO2 (35-45) mm/Hg pO2 (80-100) mm/Hg HCO3 (21-28) mmol/L ABG pH (7.35-7.45) ABG Total CO2 (22-28) mmol/L ABG O2 Saturation (95-98) % ABG Base Excess (-2.0-3.0) mmol/L Maicol Test ABG Potassium (3.6-5.2) mmol/L A-a O2 Difference mm/Hg Respiratory Index Sodium 155 H (132-148) mmol/l Chloride 108 H (98-107) mmol/L Glucose (75-110) mg/dl Lactate (0.7-2.1) mmol/L Vent Mode Mechanical Rate FiO2 % Tidal Volume PEEP Potassium 4.0 (3.6-5.2) mmol/L Carbon Dioxide 36 H (22-30) mmol/L Anion Gap 15 (10-20) BUN 61 H (9-20) mg/dL Creatinine 1.3 (0.8-1.5) mg/dL Est GFR ( Amer) > 60 Est GFR (Non-Af Amer) 54 POC Glucose (mg/dL) (65-110) mg/dL Random Glucose 193 H (75-110) mg/dL Calcium 8.9 (8.6-10.4) mg/dl Phosphorus 3.4 (2.5-4.5) mg/dL Magnesium 2.7 H (1.6-2.3) mg/dL Total Bilirubin 1.2 (0.2-1.3) mg/dL AST 54 (17-59) U/L ALT 46 (21-72) U/L Alkaline Phosphatase 66 (38-126) U/L Total Protein 7.1 (6.3-8.3) g/dL Albumin 3.6 (3.5-5.0) g/dL Globulin 3.5 (2.2-3.9) gm/dL Albumin/Globulin Ratio 1.0 (1.0-2.1) Arterial Blood Potassium (3.6-5.2) mmol/L 12/17/17 12/17/17 12/16/17 Range/Units 05:45 05:19 23:54 WBC (4.8-10.8) K/uL RBC (4.40-5.90) Mil/uL Hgb (12.0-18.0) g/dL Hct (35.0-51.0) % MCV (80.0-94.0) fL MCH (27.0-31.0) pg MCHC (33.0-37.0) g/dL RDW (11.5-14.5) % Plt Count (130-400) K/uL MPV (7.2-11.7) fL Neut % (Auto) (50.0-75.0) % Lymph % (Auto) (20.0-40.0) % [place] % (Auto) (0.0-10.0) % Eos % (Auto) (0.0-4.0) % Baso % (Auto) (0.0-2.0) % Neut # (Auto) (1.8-7.0) K/uL Lymph # (Auto) (1.0-4.3) K/uL [place] # (Auto) (0.0-0.8) K/uL Eos # (Auto) (0.0-0.7) K/uL Baso # (Auto) (0.0-0.2) K/uL Neutrophils % (Manual) (50-75) % Band Neutrophils % (0-2) % Lymphocytes % (Manual) (20-40) % Monocytes % (Manual) (0-10) % Eosinophils % (Manual) (0-4) % Platelet Estimate (NORMAL) Anisocytosis (manual) Ovalocytes PT (9.7-12.2) SECONDS INR APTT (21-34) SECONDS Puncture Site Rb pCO2 38 (35-45) mm/Hg pO2 68 L (80-100) mm/Hg HCO3 35.5 H (21-28) mmol/L ABG pH 7.59 H (7.35-7.45) ABG Total CO2 37.7 H (22-28) mmol/L ABG O2 Saturation 96.5 (95-98) % ABG Base Excess 13.6 H (-2.0-3.0) mmol/L Maicol Test Na ABG Potassium 3.8 (3.6-5.2) mmol/L A-a O2 Difference 205.0 mm/Hg Respiratory Index 3.0 Sodium 151.0 H (132-148) mmol/l Chloride 118.0 H (98-107) mmol/L Glucose 197 H (75-110) mg/dl Lactate 1.4 (0.7-2.1) mmol/L Vent Mode Prvc Mechanical Rate 16 FiO2 45.0 % Tidal Volume 500 PEEP 5 Potassium (3.6-5.2) mmol/L Carbon Dioxide (22-30) mmol/L Anion Gap (10-20) BUN (9-20) mg/dL Creatinine (0.8-1.5) mg/dL Est GFR ( Amer) Est GFR (Non-Af Amer) POC Glucose (mg/dL) 195 H 172 H (65-110) mg/dL Random Glucose (75-110) mg/dL Calcium (8.6-10.4) mg/dl Phosphorus (2.5-4.5) mg/dL Magnesium (1.6-2.3) mg/dL Total Bilirubin (0.2-1.3) mg/dL AST (17-59) U/L ALT (21-72) U/L Alkaline Phosphatase (38-126) U/L Total Protein (6.3-8.3) g/dL Albumin (3.5-5.0) g/dL Globulin (2.2-3.9) gm/dL Albumin/Globulin Ratio (1.0-2.1) Arterial Blood Potassium 3.8 (3.6-5.2) mmol/L 12/16/17 12/16/17 12/16/17 Range/Units 17:40 12:00 06:20 WBC (4.8-10.8) K/uL RBC (4.40-5.90) Mil/uL Hgb (12.0-18.0) g/dL Hct (35.0-51.0) % MCV (80.0-94.0) fL MCH (27.0-31.0) pg MCHC (33.0-37.0) g/dL RDW (11.5-14.5) % Plt Count (130-400) K/uL MPV (7.2-11.7) fL Neut % (Auto) (50.0-75.0) % Lymph % (Auto) (20.0-40.0) % [place] % (Auto) (0.0-10.0) % Eos % (Auto) (0.0-4.0) % Baso % (Auto) (0.0-2.0) % Neut # (Auto) (1.8-7.0) K/uL Lymph # (Auto) (1.0-4.3) K/uL [place] # (Auto) (0.0-0.8) K/uL Eos # (Auto) (0.0-0.7) K/uL Baso # (Auto) (0.0-0.2) K/uL Neutrophils % (Manual) 85 H (50-75) % Band Neutrophils % 2 (0-2) % Lymphocytes % (Manual) 4 L (20-40) % Monocytes % (Manual) 7 (0-10) % Eosinophils % (Manual) 2 (0-4) % Platelet Estimate Normal (NORMAL) Anisocytosis (manual) Slight Ovalocytes PT (9.7-12.2) SECONDS INR APTT (21-34) SECONDS Puncture Site pCO2 (35-45) mm/Hg pO2 (80-100) mm/Hg HCO3 (21-28) mmol/L ABG pH (7.35-7.45) ABG Total CO2 (22-28) mmol/L ABG O2 Saturation (95-98) % ABG Base Excess (-2.0-3.0) mmol/L Maicol Test ABG Potassium (3.6-5.2) mmol/L A-a O2 Difference mm/Hg Respiratory Index Sodium (132-148) mmol/l Chloride (98-107) mmol/L Glucose (75-110) mg/dl Lactate (0.7-2.1) mmol/L Vent Mode Mechanical Rate FiO2 % Tidal Volume PEEP Potassium (3.6-5.2) mmol/L Carbon Dioxide (22-30) mmol/L Anion Gap (10-20) BUN (9-20) mg/dL Creatinine (0.8-1.5) mg/dL Est GFR ( Amer) Est GFR (Non-Af Amer) POC Glucose (mg/dL) 175 H 179 H (65-110) mg/dL Random Glucose (75-110) mg/dL Calcium (8.6-10.4) mg/dl Phosphorus (2.5-4.5) mg/dL Magnesium (1.6-2.3) mg/dL Total Bilirubin (0.2-1.3) mg/dL AST (17-59) U/L ALT (21-72) U/L Alkaline Phosphatase (38-126) U/L Total Protein (6.3-8.3) g/dL Albumin (3.5-5.0) g/dL Globulin (2.2-3.9) gm/dL Albumin/Globulin Ratio (1.0-2.1) Arterial Blood Potassium (3.6-5.2) mmol/L 12/16/17 Range/Units 04:59 WBC (4.8-10.8) K/uL RBC (4.40-5.90) Mil/uL Hgb (12.0-18.0) g/dL Hct (35.0-51.0) % MCV (80.0-94.0) fL MCH (27.0-31.0) pg MCHC (33.0-37.0) g/dL RDW (11.5-14.5) % Plt Count (130-400) K/uL MPV (7.2-11.7) fL Neut % (Auto) (50.0-75.0) % Lymph % (Auto) (20.0-40.0) % [place] % (Auto) (0.0-10.0) % Eos % (Auto) (0.0-4.0) % Baso % (Auto) (0.0-2.0) % Neut # (Auto) (1.8-7.0) K/uL Lymph # (Auto) (1.0-4.3) K/uL [place] # (Auto) (0.0-0.8) K/uL Eos # (Auto) (0.0-0.7) K/uL Baso # (Auto) (0.0-0.2) K/uL Neutrophils % (Manual) (50-75) % Band Neutrophils % (0-2) % Lymphocytes % (Manual) (20-40) % Monocytes % (Manual) (0-10) % Eosinophils % (Manual) (0-4) % Platelet Estimate (NORMAL) Anisocytosis (manual) Ovalocytes PT (9.7-12.2) SECONDS INR APTT (21-34) SECONDS Puncture Site pCO2 (35-45) mm/Hg pO2 (80-100) mm/Hg HCO3 (21-28) mmol/L ABG pH (7.35-7.45) ABG Total CO2 (22-28) mmol/L ABG O2 Saturation (95-98) % ABG Base Excess (-2.0-3.0) mmol/L Maicol Test ABG Potassium (3.6-5.2) mmol/L A-a O2 Difference mm/Hg Respiratory Index Sodium (132-148) mmol/l Chloride (98-107) mmol/L Glucose (75-110) mg/dl Lactate (0.7-2.1) mmol/L Vent Mode Mechanical Rate FiO2 % Tidal Volume PEEP Potassium (3.6-5.2) mmol/L Carbon Dioxide (22-30) mmol/L Anion Gap (10-20) BUN (9-20) mg/dL Creatinine (0.8-1.5) mg/dL Est GFR ( Amer) Est GFR (Non-Af Amer) POC Glucose (mg/dL) 170 H (65-110) mg/dL Random Glucose (75-110) mg/dL Calcium (8.6-10.4) mg/dl Phosphorus (2.5-4.5) mg/dL Magnesium (1.6-2.3) mg/dL Total Bilirubin (0.2-1.3) mg/dL AST (17-59) U/L ALT (21-72) U/L Alkaline Phosphatase (38-126) U/L Total Protein (6.3-8.3) g/dL Albumin (3.5-5.0) g/dL Globulin (2.2-3.9) gm/dL Albumin/Globulin Ratio (1.0-2.1) Arterial Blood Potassium (3.6-5.2) mmol/L Laboratory Results - last 24 hr 12/16/17 12/16/17 12/16/17 04:59 06:20 12:00 WBC RBC Hgb Hct MCV MCH MCHC RDW Plt Count MPV Neut % (Auto) Lymph % (Auto) [place] % (Auto) Eos % (Auto) Baso % (Auto) Neut # (Auto) Lymph # (Auto) [place] # (Auto) Eos # (Auto) Baso # (Auto) Neutrophils % (Manual) 85 H Band Neutrophils % 2 Lymphocytes % (Manual) 4 L Monocytes % (Manual) 7 Eosinophils % (Manual) 2 Platelet Estimate Normal Anisocytosis (manual) Slight Ovalocytes PT INR APTT Puncture Site pCO2 pO2 HCO3 ABG pH ABG Total CO2 ABG O2 Saturation ABG Base Excess Maicol Test ABG Potassium A-a O2 Difference Respiratory Index Sodium Chloride Glucose Lactate Vent Mode Mechanical Rate FiO2 Tidal Volume PEEP Potassium Carbon Dioxide Anion Gap BUN Creatinine Est GFR ( Amer) Est GFR (Non-Af Amer) POC Glucose (mg/dL) 170 H 179 H Random Glucose Calcium Phosphorus Magnesium Total Bilirubin AST ALT Alkaline Phosphatase Total Protein Albumin Globulin Albumin/Globulin Ratio Arterial Blood Potassium 12/16/17 12/16/17 12/17/17 17:40 23:54 05:19 WBC RBC Hgb Hct MCV MCH MCHC RDW Plt Count MPV Neut % (Auto) Lymph % (Auto) [place] % (Auto) Eos % (Auto) Baso % (Auto) Neut # (Auto) Lymph # (Auto) [place] # (Auto) Eos # (Auto) Baso # (Auto) Neutrophils % (Manual) Band Neutrophils % Lymphocytes % (Manual) Monocytes % (Manual) Eosinophils % (Manual) Platelet Estimate Anisocytosis (manual) Ovalocytes PT INR APTT Puncture Site pCO2 pO2 HCO3 ABG pH ABG Total CO2 ABG O2 Saturation ABG Base Excess Maicol Test ABG Potassium A-a O2 Difference Respiratory Index Sodium Chloride Glucose Lactate Vent Mode Mechanical Rate FiO2 Tidal Volume PEEP Potassium Carbon Dioxide Anion Gap BUN Creatinine Est GFR ( Amer) Est GFR (Non-Af Amer) POC Glucose (mg/dL) 175 H 172 H 195 H Random Glucose Calcium Phosphorus Magnesium Total Bilirubin AST ALT Alkaline Phosphatase Total Protein Albumin Globulin Albumin/Globulin Ratio Arterial Blood Potassium 12/17/17 12/17/17 12/17/17 05:45 06:07 06:07 WBC 10.7 RBC 4.03 L Hgb 12.2 Hct 36.8 MCV 91.3 MCH 30.2 MCHC 33.1 RDW 14.8 H Plt Count 146 MPV 10.8 Neut % (Auto) 83.3 H Lymph % (Auto) 3.6 L [place] % (Auto) 13.0 H Eos % (Auto) 0.0 Baso % (Auto) 0.1 Neut # (Auto) 8.9 H Lymph # (Auto) 0.4 L [place] # (Auto) 1.4 H Eos # (Auto) 0.0 Baso # (Auto) 0.0 Neutrophils % (Manual) 74 Band Neutrophils % 7 H Lymphocytes % (Manual) 5 L Monocytes % (Manual) 14 H Eosinophils % (Manual) Platelet Estimate Normal Anisocytosis (manual) Ovalocytes Slight PT 12.2 INR 1.1 APTT 30 D Puncture Site Rb pCO2 38 pO2 68 L HCO3 35.5 H ABG pH 7.59 H ABG Total CO2 37.7 H ABG O2 Saturation 96.5 ABG Base Excess 13.6 H Maicol Test Na ABG Potassium 3.8 A-a O2 Difference 205.0 Respiratory Index 3.0 Sodium 151.0 H Chloride 118.0 H Glucose 197 H Lactate 1.4 Vent Mode Prvc Mechanical Rate 16 FiO2 45.0 Tidal Volume 500 PEEP 5 Potassium Carbon Dioxide Anion Gap BUN Creatinine Est GFR ( Amer) Est GFR (Non-Af Amer) POC Glucose (mg/dL) Random Glucose Calcium Phosphorus Magnesium Total Bilirubin AST ALT Alkaline Phosphatase Total Protein Albumin Globulin Albumin/Globulin Ratio Arterial Blood Potassium 3.8 12/17/17 06:07 WBC RBC Hgb Hct MCV MCH MCHC RDW Plt Count MPV Neut % (Auto) Lymph % (Auto) [place] % (Auto) Eos % (Auto) Baso % (Auto) Neut # (Auto) Lymph # (Auto) [place] # (Auto) Eos # (Auto) Baso # (Auto) Neutrophils % (Manual) Band Neutrophils % Lymphocytes % (Manual) Monocytes % (Manual) Eosinophils % (Manual) Platelet Estimate Anisocytosis (manual) Ovalocytes PT INR APTT Puncture Site pCO2 pO2 HCO3 ABG pH ABG Total CO2 ABG O2 Saturation ABG Base Excess Maicol Test ABG Potassium A-a O2 Difference Respiratory Index Sodium 155 H Chloride 108 H Glucose Lactate Vent Mode Mechanical Rate FiO2 Tidal Volume PEEP Potassium 4.0 Carbon Dioxide 36 H Anion Gap 15 BUN 61 H Creatinine 1.3 Est GFR ( Amer) > 60 Est GFR (Non-Af Amer) 54 POC Glucose (mg/dL) Random Glucose 193 H Calcium 8.9 Phosphorus 3.4 Magnesium 2.7 H Total Bilirubin 1.2 AST 54 ALT 46 Alkaline Phosphatase 66 Total Protein 7.1 Albumin 3.6 Globulin 3.5 Albumin/Globulin Ratio 1.0 Arterial Blood Potassium Fingerstick Blood Sugar Results: 195 Review of Systems - Review of Systems Systems not reviewed;Unavailable: Intubated Critical Care Progress Note - Nutrition Nutrition: Nutrition Category Date Time Status NPO Diet [DIET] Diets 12/12/17 Breakfast Active NPO Diet [DIET] Diets 12/17/17 Lunch Active Assessment/Plan - Assessment and Plan (Free Text) Assessment: This is a 72 yo M with PMH of AR, Afib, PVD, CHF (EF 15-20%), and CAD s/p ACID who originally presented to with complaints of shortness of breath and genital swelling. He underwent stress test, which was positive, and then while undergoing cardiac cath, developed Vfib cardiac arrest, requiring 6 shocks and CPR, ROSC obtained and then transferred to the ICU. Remains mechanically ventilated due to failing multiple pressure support trials, but off pressors. Pending possible trach. Awaiting cardiology clearance. Neuro: - Off of sedation - alert and following commands - Currently sedated on Precedex ggt Pulm: - Currently on PRVC - Failing PS trials repeatedly - F/u surgery recs regarding possible trach once medically stable CV: - hemodynamically stable - titrated off of pressors - f/u cardiology recs regarding possible cardiac cath - continue amiodarone for rhythm control - hold lasix 40mg IVP Q12 Hem: - Stable - Monitor H/H Renal: - diuresing with albumin drip and lasix IV q12h - Monitor I and O - Replete electrolytes as needed - Cont flomax Endo: - Maintain euglycemic GI: - NPO, Jevity - GI ppx - Cont Miralax ID: - Febril [id number] F - Started broad spectrum Vanc and zosyn - ID consulted for recs - Allen cultured , f/u septic work up DVT proph - lovenox GI proph - protonix IV banda for strict I/O's during acute illness Code status - full code Case and plan was reviewed and discussed in detail with Dr Velazquez.
--- NOTE | 2017-12-17 09:53 | RAD ---
Chest x-ray single frontal view History: Chest pain. Comparison: 12/16/2017 Findings: Endotracheal tube in stable position. Interval removal of the nasogastric tube. Biapical pleural thickening with upper lobe granulomatous changes. Diffuse increased interstitial lung markings. Moderate venous congestion. Bilateral hilar prominence. Consolidative changes at both lung bases with bilateral pleural effusions. Reticular opacities at the left lung base laterally. Calcification at the aortic knob. Cardiomegaly. Degenerative changes in the spine and shoulders. Impression: Endotracheal tube in stable position. Interval removal of the nasogastric tube. Biapical pleural thickening with upper lobe granulomatous changes. Diffuse increased interstitial lung markings. Moderate venous congestion. Bilateral hilar prominence. Consolidative changes at both lung bases with bilateral pleural effusions. Reticular opacities at the left lung base laterally. Calcification at the aortic knob. Cardiomegaly. Degenerative changes in the spine and shoulders.
[2017-12-17] MEDS: Enoxaparin 40 mg Syringe SC SCH (09:55)
[2017-12-17] MEDS: POLYETHYLENE GLYCOL 3350 17 GM/Dose PACKET NG SCH (09:56)
--- NOTE | 2017-12-17 12:06 | CP.PCM.CON ---
Past Patient History - Infectious Disease Hx of Infectious Diseases: None - Past Medical History & Family History Past Medical History?: No - Past Social History Smoking Status: Heavy Smoker > 10 Cigarettes Daily - CARDIAC Hx Atrial Fibrillation: Yes Hx Congestive Heart Failure: Yes Hx Hypertension: Yes Hx Pacemaker: Yes - PULMONARY Hx Chronic Obstructive Pulmonary Disease (COPD): Yes Hx Emphysema: Yes - NEUROLOGICAL Hx Neurological Disorder: No - HEENT Hx HEENT Problems: Yes - RENAL Hx Chronic Kidney Disease: No - ENDOCRINE/METABOLIC Hx Endocrine Disorders: No - HEMATOLOGICAL/ONCOLOGICAL Hx Human Immunodeficiency Virus (HIV): No - INTEGUMENTARY Hx Dermatological Problems: No - MUSCULOSKELETAL/RHEUMATOLOGICAL Hx Musculoskeletal Disorders: No Hx Falls: No - GASTROINTESTINAL Hx Gastrointestinal Disorders: No - GENITOURINARY/GYNECOLOGICAL Hx Genitourinary Disorders: No - PSYCHIATRIC Hx Substance Use: No - SURGICAL HISTORY Hx Surgeries: Yes Hx Herniorrhaphy: Yes Other/Comment: Surgeries: Hernia repair and Pacemaker insertion - ANESTHESIA Hx Anesthesia: Yes Hx Anesthesia Reactions: No Hx Malignant Hyperthermia: No Meds Allergies/Adverse Reactions: Allergies Allergy/AdvReac Type Severity Reaction Status Date / Time No Known Allergies Allergy Verified 07/16/17 01:50 - Medications Medications: Current Medications Acetaminophen (Tylenol 325mg Tab) 650 mg PO Q6 PRN PRN Reason: Pain, Mild (1-3) Amiodarone HCl (Cordarone) 200 mg PO DAILY [facility] Last Admin: 12/17/17 09:55 Dose: 200 mg Aspirin (Aspirin Chewable) 81 mg PO DAILY [facility] Enoxaparin Sodium (Lovenox) 40 mg SC DAILY [facility] Last Admin: 12/17/17 09:55 Dose: 40 mg Furosemide (Lasix) 40 mg IVP Q12H [facility] Last Admin: 12/17/17 10:28 Dose: Not Given Dexmedetomidine HCl 200 mcg/ (Sodium Chloride) 50 mls @ 3.31 mls/hr IV TITR PRN ; Protocol; 0.2 MCG/KG/HR PRN Reason: Agitation Last Admin: 12/17/17 09:57 Dose: 0.6 mcg/kg/hr, 9.94 mls/hr Piperacillin Sod/Tazobactam Sod (Zosyn 3.375 Gm Iv Premix) 3.375 gm in 50 mls @ 100 mls/hr IVPB Q6H [facility] PRN Reason: Protocol Vancomycin/Sodium Chloride (Vancomycin 1 Gm/Ns 200 Ml) 1 gm in 200 mls @ 166.6 mls/hr IVPB Q12H [facility] PRN Reason: Protocol Stop: 12/22/17 13:01 Pantoprazole Sodium (Protonix Inj) 40 mg IVP DAILY [facility] Last Admin: 12/17/17 09:55 Dose: 40 mg Polyethylene Glycol (Miralax) 17 gm NG DAILY [facility] Last Admin: 12/17/17 09:56 Dose: 17 gm Rosuvastatin Calcium (Crestor) 5 mg PO HS [facility] Last Admin: 12/16/17 21:57 Dose: 5 mg Tamsulosin HCl (Flomax) 0.4 mg PO DAILY [facility] Last Admin: 12/17/17 09:55 Dose: 0.4 mg Results - Vital Signs Recent Vital Signs: Last Vital Signs Temp 98.8 F 12/17/17 08:00 Pulse 103 H 12/17/17 08:00 Resp 22 12/17/17 08:00 BP 124/74 12/17/17 08:00 Pulse Ox 99 12/17/17 08:00 - Labs Result Diagrams: 12/17/17 06:07 12/17/17 06:07 Labs: Laboratory Results - last 24 hr 12/16/17 12/16/17 12/16/17 12:00 17:40 23:54 WBC RBC Hgb Hct MCV MCH MCHC RDW Plt Count MPV Neut % (Auto) Lymph % (Auto) [place] % (Auto) Eos % (Auto) Baso % (Auto) Neut # (Auto) Lymph # (Auto) [facility] # (Auto) Eos # (Auto) Baso # (Auto) Neutrophils % (Manual) Band Neutrophils % Lymphocytes % (Manual) Monocytes % (Manual) Platelet Estimate Ovalocytes PT INR APTT Puncture Site pCO2 pO2 HCO3 ABG pH ABG Total CO2 ABG O2 Saturation ABG Base Excess Maicol Test ABG Potassium A-a O2 Difference Respiratory Index Sodium Chloride Glucose Lactate Vent Mode Mechanical Rate FiO2 Tidal Volume PEEP Potassium Carbon Dioxide Anion Gap BUN Creatinine Est GFR ( Amer) Est GFR (Non-Af Amer) POC Glucose (mg/dL) 179 H 175 H 172 H Random Glucose Calcium Phosphorus Magnesium Total Bilirubin AST ALT Alkaline Phosphatase Total Protein Albumin Globulin Albumin/Globulin Ratio Arterial Blood Potassium 12/17/17 12/17/17 12/17/17 05:19 05:45 06:07 WBC 10.7 RBC 4.03 L Hgb 12.2 Hct 36.8 MCV 91.3 MCH 30.2 MCHC 33.1 RDW 14.8 H Plt Count 146 MPV 10.8 Neut % (Auto) 83.3 H Lymph % (Auto) 3.[address] % (Auto) 13.0 H Eos % (Auto) 0.0 Baso % (Auto) 0.1 Neut # (Auto) 8.9 H Lymph # (Auto) 0.[address] # (Auto) 1.4 H Eos # (Auto) 0.0 Baso # (Auto) 0.0 Neutrophils % (Manual) 74 Band Neutrophils % 7 H Lymphocytes % (Manual) 5 L Monocytes % (Manual) 14 H Platelet Estimate Normal Ovalocytes Slight PT INR APTT Puncture Site Rb pCO2 38 pO2 68 L HCO3 35.5 H ABG pH 7.59 H ABG Total CO2 37.7 H ABG O2 Saturation 96.5 ABG Base Excess 13.6 H Maicol Test Na ABG Potassium 3.8 A-a O2 Difference 205.0 Respiratory Index 3.0 Sodium 151.0 H Chloride 118.0 H Glucose 197 H Lactate 1.4 Vent Mode Prvc Mechanical Rate 16 FiO2 45.0 Tidal Volume 500 PEEP 5 Potassium Carbon Dioxide Anion Gap BUN Creatinine Est GFR ( Amer) Est GFR (Non-Af Amer) POC Glucose (mg/dL) 195 H Random Glucose Calcium Phosphorus Magnesium Total Bilirubin AST ALT Alkaline Phosphatase Total Protein Albumin Globulin Albumin/Globulin Ratio Arterial Blood Potassium 3.8 12/17/17 12/17/17 12/17/17 06:07 06:07 11:30 WBC RBC Hgb Hct MCV MCH MCHC RDW Plt Count MPV Neut % (Auto) Lymph % (Auto) [facility] % (Auto) Eos % (Auto) Baso % (Auto) Neut # (Auto) Lymph # (Auto) [facility] # (Auto) Eos # (Auto) Baso # (Auto) Neutrophils % (Manual) Band Neutrophils % Lymphocytes % (Manual) Monocytes % (Manual) Platelet Estimate Ovalocytes PT 12.2 INR 1.1 APTT 30 D Puncture Site pCO2 pO2 HCO3 ABG pH ABG Total CO2 ABG O2 Saturation ABG Base Excess Maicol Test ABG Potassium A-a O2 Difference Respiratory Index Sodium 155 H Chloride 108 H Glucose Lactate Vent Mode Mechanical Rate FiO2 Tidal Volume PEEP Potassium 4.0 Carbon Dioxide 36 H Anion Gap 15 BUN 61 H Creatinine 1.3 Est GFR ( Amer) > 60 Est GFR (Non-Af Amer) 54 POC Glucose (mg/dL) 163 H Random Glucose 193 H Calcium 8.9 Phosphorus 3.4 Magnesium 2.7 H Total Bilirubin 1.2 AST 54 ALT 46 Alkaline Phosphatase 66 Total Protein 7.1 Albumin 3.6 Globulin 3.5 Albumin/Globulin Ratio 1.0 Arterial Blood Potassium
[2017-12-17] MEDS: Vancomycin 1 gm/NS 200 ml 1 GM/200 ML BAG IVPB SCH (12:20)
[2017-12-17] MEDS ORDERED: Amiodarone 150mg/3 ml vial ONE (12:30)
[2017-12-17] MEDS ORDERED: DOPamine 400mg/250ml D5W IV ONE (12:30)
[2017-12-17] MEDS ORDERED: Phenylephrine 10 mg/ml Inj ONE (12:30)
[2017-12-17 12:33] LABS: SQUAMOUS EPITHIAL 1 /hpf (0-5); URINE BACTERIA RARE (<OCC); URINE BILIRUBIN NEGATIVE (NEGATIVE); URINE BLOOD NEGATIVE (NEGATIVE); URINE CLARITY Hazy (Clear); URINE COLOR Amber (YELLOW); URINE GLUCOSE (UA) NORMAL (Normal); URINE LEUKOCYTE ESTERASE 2+ Leu/uL (Negative); URINE PROTEIN 2+ mg/dL (NEGATIVE)
[2017-12-17] MEDS: Piperacill/Tazo 3.375gm in Dex 3.375 GM/50 ML BAG IVPB SCH ×2 (13:25→19:46)
[2017-12-17 13:39] LABS: B-TYPE NATRIURETIC PEPTIDE 21000 pg/mL (0-900)
[2017-12-17 15:53] LABS: ALBUMIN 3.5 g/dL (3.5-5.0); CALCIUM 8.6 mg/dl (8.6-10.4)
--- NOTE | 2017-12-17 16:22 | CP.PCM.PN ---
<Joaquín Gunter E - Last Filed: 12/17/17 16:20> Subjective - Date & Time of Evaluation Date of Evaluation: 12/17/17 Time of Evaluation: 10:50 - Subjective Subjective: Cardiology consult note (Dr. Maddox's service) Patient was seen and examined at bedside. Patient is more awake, alert and moderately aggressive. Patient is attempting to self-extubate; has failed 4 trials of Cipap. Unable to evaluate proper ROS due to current clinical status Objective - Vital Signs/Intake and Output Vital Signs (last 24 hours): Temp Pulse Resp BP Pulse Ox 102.5 F H 74 16 106/60 99 12/17/17 16:00 12/17/17 16:00 12/17/17 16:00 12/17/17 15:59 12/17/17 16:00 Intake and Output: 12/17/17 12/17/17 06:59 18:59 Intake Total 1013.8 1001.3 Output Total 1390 410 Balance -376.2 591.3 - Medications Medications: Current Medications Acetaminophen (Tylenol 325mg Tab) 650 mg PO Q6 PRN PRN Reason: Pain, Mild (1-3) Last Admin: 12/17/17 12:08 Dose: 650 mg Amiodarone HCl (Cordarone) 200 mg PO DAILY [facility] Last Admin: 12/17/17 09:55 Dose: 200 mg Aspirin (Aspirin Chewable) 81 mg PO DAILY [facility] Last Admin: 12/17/17 12:08 Dose: 81 mg Enoxaparin Sodium (Lovenox) 40 mg SC DAILY [facility] Last Admin: 12/17/17 09:55 Dose: 40 mg Furosemide (Lasix) 40 mg IVP Q12H [facility] Last Admin: 12/17/17 10:28 Dose: Not Given Dexmedetomidine HCl 200 mcg/ (Sodium Chloride) 50 mls @ 3.31 mls/hr IV TITR PRN ; Protocol; 0.2 MCG/KG/HR PRN Reason: Agitation Last Admin: 12/17/17 14:57 Dose: 0.8 mcg/kg/hr, 13.26 mls/hr Piperacillin Sod/Tazobactam Sod (Zosyn 3.375 Gm Iv Premix) 3.375 gm in 50 mls @ 100 mls/hr IVPB Q6H [facility] PRN Reason: Protocol Last Admin: 12/17/17 13:25 Dose: 100 mls/hr Vancomycin/Sodium Chloride (Vancomycin 1 Gm/Ns 200 Ml) 1 gm in 200 mls @ 166.6 mls/hr IVPB Q12H [facility] PRN Reason: Protocol Stop: 12/22/17 13:01 Last Admin: 12/17/17 12:20 Dose: 166.6 mls/hr Pantoprazole Sodium (Protonix Inj) 40 mg IVP DAILY [facility] Last Admin: 12/17/17 09:55 Dose: 40 mg Polyethylene Glycol (Miralax) 17 gm NG DAILY [facility] Last Admin: 12/17/17 09:56 Dose: 17 gm Rosuvastatin Calcium (Crestor) 5 mg PO HS [facility] Last Admin: 12/16/17 21:57 Dose: 5 mg Tamsulosin HCl (Flomax) 0.4 mg PO DAILY [facility] Last Admin: 12/17/17 09:55 Dose: 0.4 mg - Labs Labs: 12/17/17 06:07 12/17/17 15:26 PT 12.2 SECONDS (9.7-12.2) 12/17/17 06:07 INR 1.1 12/17/17 06:07 APTT 30 SECONDS (21-34) D 12/17/17 06:07 - Constitutional Appears: No Acute Distress - Head Exam Head Exam: ATRAUMATIC - Eye Exam Eye Exam: EOMI - Respiratory Exam Respiratory Exam: NORMAL BREATHING PATTERN Additional comments: Intubation Congested - Cardiovascular Exam Cardiovascular Exam: REGULAR RHYTHM, +S1 - GI/Abdominal Exam GI & Abdominal Exam: Soft, Normal Bowel Sounds - Extremities Exam Extremities Exam: absent: Pedal Edema Assessment and Plan (1) NSTEMI (non-ST elevated myocardial infarction) Assessment & Plan: 72 [place] male w/ PMHx of IA, Afib, PVD, CHF, CAD, ACID, who presents to ED w/ shortness of breath & genital swelling, admitted with the diagnosis of CHF exacerbation. Patient states that upon presentation, he had shortness of breath and intermittent left-sided chest pain that is non-radiating. Cardiology consult placed for cardiac clearance for left inguinal hernia: Echo (2016): LV is moderately dilated. Normal left ventricular wall thickness. LV systolic function is severely impaired. EF (10-15%). LA is moderately dilated. Mild triscuspid regurgitation. Moderate pulmonary hypertension Repeat ECHO (12/11/17): LV moderately dilated. Mild to moderate concentric LVH. Systolic function is moderately impaired. Global hypokinesis LV. LVEF is 30%. Mild left ventricular diastolic dysfunction. Refer to the EMR for full impression Lexiscan stress test (12/11/17): Abnormal pharmacologic stress test Positive troponin: 0.6560-->1.6300-->1.5000 ( Post cardiac arrest) - Patient had cardiac arrest during cardiac catherization (12/12/17) and transferred to the ICU; ROSC obtained after 6 shocks, 2 rounds of Epi and 1 round of bicarb: 1. Intubated, will continue to attempt to extubate 2. Amiodarone 200mg PO daily 3. CAD: ASA 81mg PO daily, crestor 5mg PO HS 4. Abnormal stress test: recommendation for further evaluation cardiac catherization once patient is stable Status: Acute (2) CHF exacerbation Assessment & Plan: BNP (12/17/17): 31236 Lasix 40mg IV Q12H; consideration for dose increase Status: Acute (3) Fever Assessment & Plan: Tmax: 102.5 F/u BC Vanco and Zosyn Status: Acute (4) Prophylactic measure Assessment & Plan: DVT: Lovenox 40mg SC daily GI: Protonix 40mg IV daily NPO, for cardiac catherization tomorrow is patient is without fever All plans and management discussed with Dr. Maddox Status: Acute <Corey Maddox - Last Filed: 12/18/17 06:14> Objective - Vital Signs/Intake and Output Vital Signs (last 24 hours): Temp Pulse Resp BP Pulse Ox 102.6 F H 78 16 118/68 95 12/18/17 04:30 12/18/17 04:59 12/18/17 04:59 12/18/17 04:59 12/18/17 04:59 Intake and Output: 12/17/17 12/18/17 18:59 06:59 Intake Total 1347.9 912.8 Output Total 470 520 Balance 877.9 392.8 - Medications Medications: Current Medications Acetaminophen (Tylenol 325mg Tab) 650 mg PO Q6 PRN PRN Reason: Pain, Mild (1-3) Last Admin: 12/18/17 04:30 Dose: 650 mg Amiodarone HCl (Cordarone) 200 mg PO DAILY [facility] Last Admin: 12/17/17 09:55 Dose: 200 mg Aspirin (Aspirin Chewable) 81 mg PO DAILY [facility] Last Admin: 12/17/17 12:08 Dose: 81 mg Enoxaparin Sodium (Lovenox) 40 mg SC DAILY [facility] Last Admin: 12/17/17 09:55 Dose: 40 mg Furosemide (Lasix) 40 mg IVP Q12H [facility] Last Admin: 12/17/17 10:28 Dose: Not Given Dexmedetomidine HCl 200 mcg/ (Sodium Chloride) 50 mls @ 3.31 mls/hr IV TITR PRN ; Protocol; 0.2 MCG/KG/HR PRN Reason: Agitation Last Admin: 12/18/17 05:00 Dose: 0.8 mcg/kg/hr, 13.26 mls/hr Piperacillin Sod/Tazobactam Sod (Zosyn 3.375 Gm Iv Premix) 3.375 gm in 50 mls @ 100 mls/hr IVPB Q6H [facility] PRN Reason: Protocol Last Admin: 12/18/17 02:38 Dose: 100 mls/hr Vancomycin/Sodium Chloride (Vancomycin 1 Gm/Ns 200 Ml) 1 gm in 200 mls @ 166.6 mls/hr IVPB Q12H [facility] PRN Reason: Protocol Stop: 12/22/17 13:01 Last Admin: 12/18/17 00:59 Dose: 166.6 mls/hr Pantoprazole Sodium (Protonix Inj) 40 mg IVP DAILY [facility] Last Admin: 12/17/17 09:55 Dose: 40 mg Polyethylene Glycol (Miralax) 17 gm NG DAILY [facility] Last Admin: 12/17/17 09:56 Dose: 17 gm Rosuvastatin Calcium (Crestor) 5 mg PO HS [facility] Last Admin: 12/17/17 22:46 Dose: 5 mg Tamsulosin HCl (Flomax) 0.4 mg PO DAILY [facility] Last Admin: 12/17/17 09:55 Dose: 0.4 mg - Labs Labs: 12/17/17 06:07 12/18/17 05:22 PT 12.2 SECONDS (9.7-12.2) 12/17/17 06:07 INR 1.1 12/17/17 06:07 APTT 30 SECONDS (21-34) D 12/17/17 06:07 Assessment and Plan - Assessment and Plan (Free Text) Assessment: Patient seen and evaluated personally by me Plan of care d/w the certified medical records coder and as documented
[2017-12-18] MEDS: Vancomycin 1 gm/NS 200 ml 1 GM/200 ML BAG IVPB SCH ×2 (00:59→12:59)
[2017-12-18] MEDS: Dexmedetomidine Hydrochloride 200 MCG in Sodium Chloride 0.9% 48 ML IV PRN ×3 (01:15→11:01)
[2017-12-18] MEDS: Piperacill/Tazo 3.375gm in Dex 3.375 GM/50 ML BAG IVPB SCH ×4 (02:38→20:25)
[2017-12-18 05:03] LABS: ABG ALLEN TEST POS; ARTERIAL BLOOD GAS HCO3 32.8 mmol/L (21-28); ARTERIAL BLOOD GAS HEMOGLOBIN 12.7 g/dL (11.7-17.4); ARTERIAL BLOOD GAS O2 SAT 97.9 % (95-98); ARTERIAL BLOOD GAS PCO2 43 mm/Hg (35-45); ARTERIAL BLOOD GAS PH 7.51 (7.35-7.45); ARTERIAL BLOOD GAS PO2 86 mm/Hg (80-100); ARTERIAL BLOOD GAS TCO2 35.6 mmol/L (22-28)
[2017-12-18 05:47] LABS: ALBUMIN 3.2 g/dL (3.5-5.0); ALT/SGPT 51 U/L (21-72); AST/SGOT 51 U/L (17-59); BLOOD UREA NITROGEN 76 mg/dL (9-20); CALCIUM 8.5 mg/dl (8.6-10.4); GFR NON-AFRICAN AMERICAN 50
[2017-12-18 08:17] LABS: BASO # 0.1 K/uL (0.0-0.2); BASO % 0.4 % (0.0-2.0); EOS % 0.1 % (0.0-4.0); HEMOGLOBIN 12.3 g/dL (12.0-18.0); LYMPH # 0.9 K/uL (1.0-4.3); LYMPH % 7.3 % (20.0-40.0); MEAN CELL VOLUME 91.4 fL (80.0-94.0); MEAN CORPUSCULAR HEMOGLOBIN 29.8 pg (27.0-31.0); MEAN CORPUSCULAR HGB CONC 32.6 g/dL (33.0-37.0); MEAN PLATELET VOLUME 10.5 fL (7.2-11.7); MONO # 1.9 K/uL (0.0-0.8); MONO % 15.8 % (0.0-10.0); NEUT # 9.2 K/uL (1.8-7.0); NEUT % 76.4 % (50.0-75.0); NRBC % 0.1 % (0.0-2.0); PLATELET COUNT 146 K/uL (130-400); RBC 4.14 Mil/uL (4.40-5.90); RED CELL DISTRIBUTION WIDTH 14.8 % (11.5-14.5)
--- NOTE | 2017-12-18 08:32 | CP.CCUPN ---
<Dewey Salinas - Last Filed: 12/18/17 11:50> CCU Subjective - Physician Review Subjective (Free Text): Critical care progress note: Pt seen and examined at bedside. No acute events overnight. Patient was extubated this morning. Denies any chest pain or sob. Plan for cardiac cath today cancelled due to persistant fevers (tmax 103) since yesterday. 12 Point ROS neg other than stated above. CCU Objective - Vital Signs / Intake & Output Vital Signs (Last 4 hours): Vital Signs Temp Pulse Resp BP Pulse Ox 12/18/17 08:00 92 H 20 12/18/17 07:59 88 17 110/65 12/18/17 07:01 91 H 12 113/66 12/18/17 05:59 86 14 128/75 80 L 12/18/17 05:30 101.8 F H 12/18/17 04:59 78 16 118/68 95 12/18/17 04:30 102.6 F H Intake and Output (Last 8hrs): Intake & Output 12/17/17 12/18/17 12/18/17 22:59 06:59 14:59 Intake Total 971.3 474.7 Output Total 280 350 Balance 691.3 124.7 Weight 130 lb 8.218 oz Intake: IV 100.0 100.0 Intake, IV Amount 316.3 339.7 Right Distal Port Femoral 50 Right Forearm 150 250 Right Hand 103.0 89.7 Right Medial Port Femoral 13.3 Oral 140 Tube Feeding 280 35 Other 135 Output: Urine 280 350 Urethral (Banda) 280 350 Other: # Bowel Movements 0 0 - Physical Exam Head: Positive for: Atraumatic, Normocephalic. Negative for: Tenderness, Contusion, Swelling Pupils: Positive for: PERRL. Negative for: Non-Reactive, Pinpoint Extroacular Muscles: Positive for: EOMI, Other Conjunctiva: Negative for: Injected, Icteric Mouth: Positive for: Moist Mucous Membranes Nose (External): Positive for: Atraumatic. Negative for: Abrasion, Contusion, Laceration Nose (Internal): Positive for: No Active Bleeding. Negative for: Epistaxis Neck: Positive for: Normal Range of Motion (passively, not following commands so unable to assess active ROM), Trachea Midline. Negative for: JVD Respiratory/Chest: Positive for: Decreased Breath Sounds (mildly decreased breath sounds in Left lower lobe), Rhonchi (diffusely ronchorous breath sounds inspiratory and expiratory), Other (intubated and mechanically ventilated). Negative for: Clear to Auscultation, Wheezes, Rales Cardiovascular: Positive for: Regular Rate and Rhythm, Normal S1, S2 Abdomen: Positive for: Normal Bowel Sounds. Negative for: Tenderness, Distention Upper Extremity: Positive for: Normal Inspection, NORMAL PULSES. Negative for: Cyanosis, Edema, Swelling, Erythema, Deformity Lower Extremity: Positive for: NORMAL PULSES. Negative for: Edema, Cyanosis, Swelling, Erythema, Deformity Neurological: Positive for: Other (intermittently awakes from sedation and exhibits spontaneous movements but doesn't follow commands, agitated and moving all extremities spontaneously on sedation vacation but still not following commands). Negative for: GCS=15 (GCS 9 ([id number])) Skin: Positive for: Warm, Dry, Normal Color. Negative for: Rashes - Medications Active Medications: Active Medications Generic Name Dose Route Start Last Admin Trade Name Freq PRN Reason Stop Dose Admin Acetaminophen 650 mg 12/17/17 11:43 12/18/17 04:30 Tylenol 325mg Tab PO 650 mg Q6 PRN Administration Pain, Mild (1-3) Amiodarone HCl 200 mg 12/13/17 11:45 12/17/17 09:55 Cordarone PO 200 mg DAILY ASPEN Administration Aspirin 81 mg 12/17/17 11:15 12/17/17 12:08 Aspirin Chewable PO 81 mg DAILY ASPEN Administration Enoxaparin Sodium 40 mg 12/17/17 10:00 12/17/17 09:55 Lovenox SC 40 mg DAILY ASPEN Administration Furosemide 40 mg 12/16/17 10:00 12/17/17 10:28 Lasix IVP Not Given Q12H ASPEN Dexmedetomidine HCl 200 mcg/ 50 mls @ 3.31 mls/hr 12/15/17 13:31 12/18/17 05: 00 Sodium Chloride IV 0.8 mcg/kg/hr TITR PRN 13.26 mls/hr Agitation Administration Protocol 0.2 MCG/KG/HR Piperacillin Sod/Tazobactam Sod 3.375 gm in 50 mls @ 100 mls/hr 12/17/17 14: 00 12/18/17 02:38 Zosyn 3.375 Gm Iv Premix IVPB 100 mls/hr Q6H ASPEN Administration Protocol Vancomycin/Sodium Chloride 1 gm in 200 mls @ 166.6 mls/hr 12/17/17 13:00 00:59 Vancomycin 1 Gm/Ns 200 Ml IVPB 12/22/17 13:01 166.6 mls/hr Q12H ASPEN Administration Protocol Pantoprazole Sodium 40 mg 12/12/17 11:15 12/17/17 09:55 Protonix Inj IVP 40 mg DAILY ASPEN Administration Polyethylene Glycol 17 gm 12/15/17 16:00 12/17/17 09:56 Miralax NG 17 gm DAILY ASPEN Administration Rosuvastatin Calcium 5 mg 12/08/17 22:00 12/17/17 22:46 Crestor PO 5 mg HS ASPEN Administration Tamsulosin HCl 0.4 mg 12/12/17 13:30 12/17/17 09:55 Flomax PO 0.4 mg DAILY ASPEN Administration - Patient Studies Lab Studies: Microbiology Studies 12/17/17 12:03 Gram Stain - Final Trachasp Lab Studies 12/18/17 12/18/17 12/18/17 Range/Units 08:10 05:22 04:57 WBC 12.0 H (4.8-10.8) K/uL RBC 4.14 L (4.40-5.90) Mil/uL Hgb 12.3 (12.0-18.0) g/dL Hct 37.9 (35.0-51.0) % MCV 91.4 (80.0-94.0) fL MCH 29.8 (27.0-31.0) pg MCHC 32.6 L (33.0-37.0) g/dL RDW 14.8 H (11.5-14.5) % Plt Count 146 (130-400) K/uL MPV 10.5 (7.2-11.7) fL Neut % (Auto) 76.4 H (50.0-75.0) % Lymph % (Auto) 7.3 L (20.0-40.0) % [place] % (Auto) 15.8 H (0.0-10.0) % Eos % (Auto) 0.1 (0.0-4.0) % Baso % (Auto) 0.4 (0.0-2.0) % Neut # (Auto) 9.2 H (1.8-7.0) K/uL Lymph # (Auto) 0.9 L (1.0-4.3) K/uL [place] # (Auto) 1.9 H (0.0-0.8) K/uL Eos # (Auto) 0.0 (0.0-0.7) K/uL Baso # (Auto) 0.1 (0.0-0.2) K/uL Puncture Site R rad pCO2 43 (35-45) mm/Hg pO2 86 (80-100) mm/Hg HCO3 32.8 H (21-28) mmol/L ABG pH 7.51 H (7.35-7.45) ABG Total CO2 35.6 H (22-28) mmol/L ABG O2 Saturation 97.9 (95-98) % ABG Base Excess 10.1 H (-2.0-3.0) mmol/L ABG Hemoglobin 12.7 (11.7-17.4) g/dL ABG Carboxyhemoglobin 1.5 (0.5-1.5) % POC ABG HHb (Measured) 2.0 (0.0-5.0) % ABG Methemoglobin 1.0 (0.0-3.0) % Maicol Test Pos A-a O2 Difference 163.0 mm/Hg Respiratory Index 1.6 Hgb O2 Saturation 95.5 (95.0-98.0) % Vent Mode Prvc Mechanical Rate 16 FiO2 45.0 % Tidal Volume 500 PEEP 5 Sodium 158 H (132-148) mmol/L Potassium 3.8 (3.6-5.2) mmol/L Chloride 114 H (98-107) mmol/L Carbon Dioxide 33 H (22-30) mmol/L Anion Gap 14 (10-20) BUN 76 H (9-20) mg/dL Creatinine 1.4 (0.8-1.5) mg/dL Est GFR ( Amer) > 60 Est GFR (Non-Af Amer) 50 POC Glucose (mg/dL) (65-110) mg/dL Random Glucose 150 H (75-110) mg/dL Lactic Acid (0.7-2.1) mmol/L Calcium 8.5 L (8.6-10.4) mg/dl Phosphorus 3.8 (2.5-4.5) mg/dL Magnesium 3.0 H (1.6-2.3) mg/dL Total Bilirubin 1.1 (0.2-1.3) mg/dL AST 51 (17-59) U/L ALT 51 (21-72) U/L Alkaline Phosphatase 57 (38-126) U/L NT-Pro-B Natriuret Pep (0-900) pg/mL Total Protein 6.5 (6.3-8.3) g/dL Albumin 3.2 L (3.5-5.0) g/dL Globulin 3.3 (2.2-3.9) gm/dL Albumin/Globulin Ratio 1.0 (1.0-2.1) Urine Color (YELLOW) Urine Clarity (Clear) Urine pH (5.0-8.0) Ur Specific [place] (1.003-1.030) Urine Protein (NEGATIVE) mg/dL Urine Glucose (UA) (Normal) mg/dL Urine Ketones (NEGATIVE) mg/dL Urine Blood (NEGATIVE) Urine Nitrate (NEGATIVE) Urine Bilirubin (NEGATIVE) Urine Urobilinogen (0.2-1.0) mg/dL Ur Leukocyte Esterase (Negative) Ana/uL Urine WBC (Auto) (0-5) /hpf Urine RBC (Auto) (0-3) /hpf Ur Squamous Epith Cells (0-5) /hpf Urine Bacteria (<OCC) Hyaline Casts (0-2) /lpf 12/18/17 12/17/17 12/17/17 Range/Units 04:48 23:46 18:03 WBC (4.8-10.8) K/uL RBC (4.40-5.90) Mil/uL Hgb (12.0-18.0) g/dL Hct (35.0-51.0) % MCV (80.0-94.0) fL MCH (27.0-31.0) pg MCHC (33.0-37.0) g/dL RDW (11.5-14.5) % Plt Count (130-400) K/uL MPV (7.2-11.7) fL Neut % (Auto) (50.0-75.0) % Lymph % (Auto) (20.0-40.0) % [place] % (Auto) (0.0-10.0) % Eos % (Auto) (0.0-4.0) % Baso % (Auto) (0.0-2.0) % Neut # (Auto) (1.8-7.0) K/uL Lymph # (Auto) (1.0-4.3) K/uL [place] # (Auto) (0.0-0.8) K/uL Eos # (Auto) (0.0-0.7) K/uL Baso # (Auto) (0.0-0.2) K/uL Puncture Site pCO2 (35-45) mm/Hg pO2 (80-100) mm/Hg HCO3 (21-28) mmol/L ABG pH (7.35-7.45) ABG Total CO2 (22-28) mmol/L ABG O2 Saturation (95-98) % ABG Base Excess (-2.0-3.0) mmol/L ABG Hemoglobin (11.7-17.4) g/dL ABG Carboxyhemoglobin (0.5-1.5) % POC ABG HHb (Measured) (0.0-5.0) % ABG Methemoglobin (0.0-3.0) % Maicol Test A-a O2 Difference mm/Hg Respiratory Index Hgb O2 Saturation (95.0-98.0) % Vent Mode Mechanical Rate FiO2 % Tidal Volume PEEP Sodium (132-148) mmol/L Potassium (3.6-5.2) mmol/L Chloride (98-107) mmol/L Carbon Dioxide (22-30) mmol/L Anion Gap (10-20) BUN (9-20) mg/dL Creatinine (0.8-1.5) mg/dL Est GFR ( Amer) Est GFR (Non-Af Amer) POC Glucose (mg/dL) 131 H 135 H 157 H (65-110) mg/dL Random Glucose (75-110) mg/dL Lactic Acid (0.7-2.1) mmol/L Calcium (8.6-10.4) mg/dl Phosphorus (2.5-4.5) mg/dL Magnesium (1.6-2.3) mg/dL Total Bilirubin (0.2-1.3) mg/dL AST (17-59) U/L ALT (21-72) U/L Alkaline Phosphatase (38-126) U/L NT-Pro-B Natriuret Pep (0-900) pg/mL Total Protein (6.3-8.3) g/dL Albumin (3.5-5.0) g/dL Globulin (2.2-3.9) gm/dL Albumin/Globulin Ratio (1.0-2.1) Urine Color (YELLOW) Urine Clarity (Clear) Urine pH (5.0-8.0) Ur Specific [place] (1.003-1.030) Urine Protein (NEGATIVE) mg/dL Urine Glucose (UA) (Normal) mg/dL Urine Ketones (NEGATIVE) mg/dL Urine Blood (NEGATIVE) Urine Nitrate (NEGATIVE) Urine Bilirubin (NEGATIVE) Urine Urobilinogen (0.2-1.0) mg/dL Ur Leukocyte Esterase (Negative) Ana/uL Urine WBC (Auto) (0-5) /hpf Urine RBC (Auto) (0-3) /hpf Ur Squamous Epith Cells (0-5) /hpf Urine Bacteria (<OCC) Hyaline Casts (0-2) /lpf 12/17/17 12/17/17 12/17/17 Range/Units 15:26 12:03 11:45 WBC (4.8-10.8) K/uL RBC (4.40-5.90) Mil/uL Hgb (12.0-18.0) g/dL Hct (35.0-51.0) % MCV (80.0-94.0) fL MCH (27.0-31.0) pg MCHC (33.0-37.0) g/dL RDW (11.5-14.5) % Plt Count (130-400) K/uL MPV (7.2-11.7) fL Neut % (Auto) (50.0-75.0) % Lymph % (Auto) (20.0-40.0) % [place] % (Auto) (0.0-10.0) % Eos % (Auto) (0.0-4.0) % Baso % (Auto) (0.0-2.0) % Neut # (Auto) (1.8-7.0) K/uL Lymph # (Auto) (1.0-4.3) K/uL [place] # (Auto) (0.0-0.8) K/uL Eos # (Auto) (0.0-0.7) K/uL Baso # (Auto) (0.0-0.2) K/uL Puncture Site pCO2 (35-45) mm/Hg pO2 (80-100) mm/Hg HCO3 (21-28) mmol/L ABG pH (7.35-7.45) ABG Total CO2 (22-28) mmol/L ABG O2 Saturation (95-98) % ABG Base Excess (-2.0-3.0) mmol/L ABG Hemoglobin (11.7-17.4) g/dL ABG Carboxyhemoglobin (0.5-1.5) % POC ABG HHb (Measured) (0.0-5.0) % ABG Methemoglobin (0.0-3.0) % Maicol Test A-a O2 Difference mm/Hg Respiratory Index Hgb O2 Saturation (95.0-98.0) % Vent Mode Mechanical Rate FiO2 % Tidal Volume PEEP Sodium 157 H (132-148) mmol/L Potassium 4.0 (3.6-5.2) mmol/L Chloride 112 H (98-107) mmol/L Carbon Dioxide 34 H (22-30) mmol/L Anion Gap 14 (10-20) BUN 72 H (9-20) mg/dL Creatinine 1.5 (0.8-1.5) mg/dL Est GFR ( Amer) 56 Est GFR (Non-Af Amer) 46 POC Glucose (mg/dL) (65-110) mg/dL Random Glucose 164 H (75-110) mg/dL Lactic Acid 1.5 (0.7-2.1) mmol/L Calcium 8.6 (8.6-10.4) mg/dl Phosphorus (2.5-4.5) mg/dL Magnesium (1.6-2.3) mg/dL Total Bilirubin 1.2 (0.2-1.3) mg/dL AST 60 H (17-59) U/L ALT 47 (21-72) U/L Alkaline Phosphatase 62 (38-126) U/L NT-Pro-B Natriuret Pep (0-900) pg/mL Total Protein 6.8 (6.3-8.3) g/dL Albumin 3.5 (3.5-5.0) g/dL Globulin 3.4 (2.2-3.9) gm/dL Albumin/Globulin Ratio 1.0 (1.0-2.1) Urine Color Charity (YELLOW) Urine Clarity Hazy (Clear) Urine pH 5.0 (5.0-8.0) Ur Specific [place] 1.021 (1.003-1.030) Urine Protein 2+ H (NEGATIVE) mg/dL Urine Glucose (UA) Normal (Normal) mg/dL Urine Ketones Negative (NEGATIVE) mg/dL Urine Blood Negative (NEGATIVE) Urine Nitrate Negative (NEGATIVE) Urine Bilirubin Negative (NEGATIVE) Urine Urobilinogen 4.0 (0.2-1.0) mg/dL Ur Leukocyte Esterase 2+ H (Negative) Ana/uL Urine WBC (Auto) 26 H (0-5) /hpf Urine RBC (Auto) 9 H (0-3) /hpf Ur Squamous Epith Cells 1 (0-5) /hpf Urine Bacteria Rare (<OCC) Hyaline Casts 3-5 H (0-2) /lpf 12/17/17 12/17/17 Range/Units 11:30 06:07 WBC (4.8-10.8) K/uL RBC (4.40-5.90) Mil/uL Hgb (12.0-18.0) g/dL Hct (35.0-51.0) % MCV (80.0-94.0) fL MCH (27.0-31.0) pg MCHC (33.0-37.0) g/dL RDW (11.5-14.5) % Plt Count (130-400) K/uL MPV (7.2-11.7) fL Neut % (Auto) (50.0-75.0) % Lymph % (Auto) (20.0-40.0) % [place] % (Auto) (0.0-10.0) % Eos % (Auto) (0.0-4.0) % Baso % (Auto) (0.0-2.0) % Neut # (Auto) (1.8-7.0) K/uL Lymph # (Auto) (1.0-4.3) K/uL [place] # (Auto) (0.0-0.8) K/uL Eos # (Auto) (0.0-0.7) K/uL Baso # (Auto) (0.0-0.2) K/uL Puncture Site pCO2 (35-45) mm/Hg pO2 (80-100) mm/Hg HCO3 (21-28) mmol/L ABG pH (7.35-7.45) ABG Total CO2 (22-28) mmol/L ABG O2 Saturation (95-98) % ABG Base Excess (-2.0-3.0) mmol/L ABG Hemoglobin (11.7-17.4) g/dL ABG Carboxyhemoglobin (0.5-1.5) % POC ABG HHb (Measured) (0.0-5.0) % ABG Methemoglobin (0.0-3.0) % Maicol Test A-a O2 Difference mm/Hg Respiratory Index Hgb O2 Saturation (95.0-98.0) % Vent Mode Mechanical Rate FiO2 % Tidal Volume PEEP Sodium 155 H (132-148) mmol/L Potassium 4.0 (3.6-5.2) mmol/L Chloride 108 H (98-107) mmol/L Carbon Dioxide 36 H (22-30) mmol/L Anion Gap 15 (10-20) BUN 61 H (9-20) mg/dL Creatinine 1.3 (0.8-1.5) mg/dL Est GFR ( Amer) > 60 Est GFR (Non-Af Amer) 54 POC Glucose (mg/dL) 163 H (65-110) mg/dL Random Glucose 193 H (75-110) mg/dL Lactic Acid (0.7-2.1) mmol/L Calcium 8.9 (8.6-10.4) mg/dl Phosphorus 3.4 (2.5-4.5) mg/dL Magnesium 2.7 H (1.6-2.3) mg/dL Total Bilirubin 1.2 (0.2-1.3) mg/dL AST 54 (17-59) U/L ALT 46 (21-72) U/L Alkaline Phosphatase 66 (38-126) U/L NT-Pro-B Natriuret Pep 13274 H (0-900) pg/mL Total Protein 7.1 (6.3-8.3) g/dL Albumin 3.6 (3.5-5.0) g/dL Globulin 3.5 (2.2-3.9) gm/dL Albumin/Globulin Ratio 1.0 (1.0-2.1) Urine Color (YELLOW) Urine Clarity (Clear) Urine pH (5.0-8.0) Ur Specific [place] (1.003-1.030) Urine Protein (NEGATIVE) mg/dL Urine Glucose (UA) (Normal) mg/dL Urine Ketones (NEGATIVE) mg/dL Urine Blood (NEGATIVE) Urine Nitrate (NEGATIVE) Urine Bilirubin (NEGATIVE) Urine Urobilinogen (0.2-1.0) mg/dL Ur Leukocyte Esterase (Negative) Ana/uL Urine WBC (Auto) (0-5) /hpf Urine RBC (Auto) (0-3) /hpf Ur Squamous Epith Cells (0-5) /hpf Urine Bacteria (<OCC) Hyaline Casts (0-2) /lpf Laboratory Results - last 24 hr 12/17/17 12/17/17 12/17/17 06:07 11:30 11:45 WBC RBC Hgb Hct MCV MCH MCHC RDW Plt Count MPV Neut % (Auto) Lymph % (Auto) [place] % (Auto) Eos % (Auto) Baso % (Auto) Neut # (Auto) Lymph # (Auto) [place] # (Auto) Eos # (Auto) Baso # (Auto) Puncture Site pCO2 pO2 HCO3 ABG pH ABG Total CO2 ABG O2 Saturation ABG Base Excess ABG Hemoglobin ABG Carboxyhemoglobin POC ABG HHb (Measured) ABG Methemoglobin Maicol Test A-a O2 Difference Respiratory Index Hgb O2 Saturation Vent Mode Mechanical Rate FiO2 Tidal Volume PEEP Sodium 155 H Potassium 4.0 Chloride 108 H Carbon Dioxide 36 H Anion Gap 15 BUN 61 H Creatinine 1.3 Est GFR ( Amer) > 60 Est GFR (Non-Af Amer) 54 POC Glucose (mg/dL) 163 H Random Glucose 193 H Lactic Acid 1.5 Calcium 8.9 Phosphorus 3.4 Magnesium 2.7 H Total Bilirubin 1.2 AST 54 ALT 46 Alkaline Phosphatase 66 NT-Pro-B Natriuret Pep 93481 H Total Protein 7.1 Albumin 3.6 Globulin 3.5 Albumin/Globulin Ratio 1.0 Urine Color Urine Clarity Urine pH Ur Specific [place] Urine Protein Urine Glucose (UA) Urine Ketones Urine Blood Urine Nitrate Urine Bilirubin Urine Urobilinogen Ur Leukocyte Esterase Urine WBC (Auto) Urine RBC (Auto) Ur Squamous Epith Cells Urine Bacteria Hyaline Casts 12/17/17 12/17/17 12/17/17 12:03 15:26 18:03 WBC RBC Hgb Hct MCV MCH MCHC RDW Plt Count MPV Neut % (Auto) Lymph % (Auto) [place] % (Auto) Eos % (Auto) Baso % (Auto) Neut # (Auto) Lymph # (Auto) [place] # (Auto) Eos # (Auto) Baso # (Auto) Puncture Site pCO2 pO2 HCO3 ABG pH ABG Total CO2 ABG O2 Saturation ABG Base Excess ABG Hemoglobin ABG Carboxyhemoglobin POC ABG HHb (Measured) ABG Methemoglobin Maicol Test A-a O2 Difference Respiratory Index Hgb O2 Saturation Vent Mode Mechanical Rate FiO2 Tidal Volume PEEP Sodium 157 H Potassium 4.0 Chloride 112 H Carbon Dioxide 34 H Anion Gap 14 BUN 72 H Creatinine 1.5 Est GFR ( Amer) 56 Est GFR (Non-Af Amer) 46 POC Glucose (mg/dL) 157 H Random Glucose 164 H Lactic Acid Calcium 8.6 Phosphorus Magnesium Total Bilirubin 1.2 AST 60 H ALT 47 Alkaline Phosphatase 62 NT-Pro-B Natriuret Pep Total Protein 6.8 Albumin 3.5 Globulin 3.4 Albumin/Globulin Ratio 1.0 Urine Color Charity Urine Clarity Hazy Urine pH 5.0 Ur Specific [place] 1.021 Urine Protein 2+ H Urine Glucose (UA) Normal Urine Ketones Negative Urine Blood Negative Urine Nitrate Negative Urine Bilirubin Negative Urine Urobilinogen 4.0 Ur Leukocyte Esterase 2+ H Urine WBC (Auto) 26 H Urine RBC (Auto) 9 H Ur Squamous Epith Cells 1 Urine Bacteria Rare Hyaline Casts 3-5 H 12/17/17 12/18/17 12/18/17 23:46 04:48 04:57 WBC RBC Hgb Hct MCV MCH MCHC RDW Plt Count MPV Neut % (Auto) Lymph % (Auto) [place] % (Auto) Eos % (Auto) Baso % (Auto) Neut # (Auto) Lymph # (Auto) [place] # (Auto) Eos # (Auto) Baso # (Auto) Puncture Site R rad pCO2 43 pO2 86 HCO3 32.8 H ABG pH 7.51 H ABG Total CO2 35.6 H ABG O2 Saturation 97.9 ABG Base Excess 10.1 H ABG Hemoglobin 12.7 ABG Carboxyhemoglobin 1.5 POC ABG HHb (Measured) 2.0 ABG Methemoglobin 1.0 Maicol Test Pos A-a O2 Difference 163.0 Respiratory Index 1.6 Hgb O2 Saturation 95.5 Vent Mode Prvc Mechanical Rate 16 FiO2 45.0 Tidal Volume 500 PEEP 5 Sodium Potassium Chloride Carbon Dioxide Anion Gap BUN Creatinine Est GFR ( Amer) Est GFR (Non-Af Amer) POC Glucose (mg/dL) 135 H 131 H Random Glucose Lactic Acid Calcium Phosphorus Magnesium Total Bilirubin AST ALT Alkaline Phosphatase NT-Pro-B Natriuret Pep Total Protein Albumin Globulin Albumin/Globulin Ratio Urine Color Urine Clarity Urine pH Ur Specific [place] Urine Protein Urine Glucose (UA) Urine Ketones Urine Blood Urine Nitrate Urine Bilirubin Urine Urobilinogen Ur Leukocyte Esterase Urine WBC (Auto) Urine RBC (Auto) Ur Squamous Epith Cells Urine Bacteria Hyaline Casts 12/18/17 12/18/17 05:22 08:10 WBC 12.0 H RBC 4.14 L Hgb 12.3 Hct 37.9 MCV 91.4 MCH 29.8 MCHC 32.6 L RDW 14.8 H Plt Count 146 MPV 10.5 Neut % (Auto) 76.4 H Lymph % (Auto) 7.3 L [place] % (Auto) 15.8 H Eos % (Auto) 0.1 Baso % (Auto) 0.4 Neut # (Auto) 9.2 H Lymph # (Auto) 0.9 L [place] # (Auto) 1.9 H Eos # (Auto) 0.0 Baso # (Auto) 0.1 Puncture Site pCO2 pO2 HCO3 ABG pH ABG Total CO2 ABG O2 Saturation ABG Base Excess ABG Hemoglobin ABG Carboxyhemoglobin POC ABG HHb (Measured) ABG Methemoglobin Maicol Test A-a O2 Difference Respiratory Index Hgb O2 Saturation Vent Mode Mechanical Rate FiO2 Tidal Volume PEEP Sodium 158 H Potassium 3.8 Chloride 114 H Carbon Dioxide 33 H Anion Gap 14 BUN 76 H Creatinine 1.4 Est GFR ( Amer) > 60 Est GFR (Non-Af Amer) 50 POC Glucose (mg/dL) Random Glucose 150 H Lactic Acid Calcium 8.5 L Phosphorus 3.8 Magnesium 3.0 H Total Bilirubin 1.1 AST 51 ALT 51 Alkaline Phosphatase 57 NT-Pro-B Natriuret Pep Total Protein 6.5 Albumin 3.2 L Globulin 3.3 Albumin/Globulin Ratio 1.0 Urine Color Urine Clarity Urine pH Ur Specific [place] Urine Protein Urine Glucose (UA) Urine Ketones Urine Blood Urine Nitrate Urine Bilirubin Urine Urobilinogen Ur Leukocyte Esterase Urine WBC (Auto) Urine RBC (Auto) Ur Squamous Epith Cells Urine Bacteria Hyaline Casts Fingerstick Blood Sugar Results: 130 Review of Systems - Review of Systems All systems: reviewed and no additional remarkable complaints except Critical Care Progress Note - Nutrition Nutrition: Nutrition Category Date Time Status NPO Diet [DIET] Diets 12/18/17 Breakfast Active Assessment/Plan - Assessment and Plan (Free Text) Assessment: This is a 72 yo M with PMH of DC, Afib, PVD, CHF (EF 15-20%), and CAD s/p ACID who originally presented to with complaints of shortness of breath and genital swelling. He underwent stress test, which was positive, and then while undergoing cardiac cath, developed Vfib cardiac arrest, requiring 6 shocks and CPR, ROSC obtained and then transferred to the ICU. Remains mechanically ventilated due to failing multiple pressure support trials, but off pressors. Pending possible trach. Awaiting cardiology clearance. Neuro: - Off of sedation - alert and following commands - Currently sedated on Precedex ggt Pulm: - Extubated this morning - Nasal cannula as needed - maintain SPO2 > 92% CV: - hemodynamically stable - f/u cardiology recs - cardiac cath cancelled due to fevers - continue amiodarone for rhythm control - lasix 40mg IVP Q12 on hold due to hypernatremia Hem: - Stable - Monitor H/H Renal: - Monitor I and O - Replete electrolytes as needed - Cont flomax Endo: - Maintain euglycemic GI: - NPO, Jevity - GI ppx - Cont Miralax ID: - Febrile 103 overnight - Tylenol as needed for fevers - Cont Vanc and zosyn - ID consulted for recs - Allen cultured , f/u septic work up DVT proph - lovenox GI proph - protonix IV banda for strict I/O's during acute illness Code status - full code Case and plan was reviewed and discussed in detail with Dr Casiano. <Atif Casiano - Last Filed: 12/18/17 18:13> CCU Subjective - Physician Review Critical Care Time Spent (in minutes): 35 CCU Objective - Vital Signs / Intake & Output Vital Signs (Last 4 hours): Vital Signs Pulse Resp BP Pulse Ox 12/18/17 15:59 102 H 17 102/65 88 L 12/18/17 14:17 109 H 33 H 90/54 L 90 L Intake and Output (Last 8hrs): Intake & Output 12/18/17 12/18/17 12/18/17 06:59 14:59 22:59 Intake Total 474.7 723.2 100 Output Total 350 225 Balance 124.7 498.2 100 Weight 130 lb 8.218 oz Intake: IV 100.0 60 Intake, IV Amount 339.7 288.2 Right Forearm 250 250 Right Hand 89.7 38.2 Oral 375 100 Tube Feeding 35 Output: Urine 350 225 Urethral (Banda) 350 225 Other: # Bowel Movements 0 - Medications Active Medications: Active Medications Generic Name Dose Route Start Last Admin Trade Name Freq PRN Reason Stop Dose Admin Acetaminophen 650 mg 12/17/17 11:43 12/18/17 04:30 Tylenol 325mg Tab PO 650 mg Q6 PRN Administration Pain, Mild (1-3) Amiodarone HCl 200 mg 12/13/17 11:45 12/18/17 09:12 Cordarone PO 200 mg DAILY ASPEN Administration Aspirin 81 mg 12/17/17 11:15 12/18/17 09:11 Aspirin Chewable PO 81 mg DAILY ASPEN Administration Enoxaparin Sodium 40 mg 12/17/17 10:00 12/18/17 09:13 Lovenox SC 40 mg DAILY ASPEN Administration Furosemide 40 mg 12/16/17 10:00 12/17/17 10:28 Lasix IVP Not Given Q12H [facility] Dexmedetomidine HCl 200 mcg/ 50 mls @ 3.31 mls/hr 12/15/17 13:31 12/18/17 12: 05 Sodium Chloride IV 0 mcg/kg/hr TITR PRN 0 mls/hr Agitation Titration Protocol 0.2 MCG/KG/HR Piperacillin Sod/Tazobactam Sod 3.375 gm in 50 mls @ 100 mls/hr 12/17/17 14: 00 12/18/17 14:15 Zosyn 3.375 Gm Iv Premix IVPB 100 mls/hr Q6H ASPEN Administration Protocol Vancomycin/Sodium Chloride 1 gm in 200 mls @ 166.6 mls/hr 12/17/17 13:00 12:59 Vancomycin 1 Gm/Ns 200 Ml IVPB 12/22/17 13:01 166.6 mls/hr Q12H ASPEN Administration Protocol Pantoprazole Sodium 40 mg 12/12/17 11:15 12/18/17 09:12 Protonix Inj IVP 40 mg DAILY ASPEN Administration Polyethylene Glycol 17 gm 12/15/17 16:00 12/18/17 11:01 Miralax NG 17 gm DAILY ASPEN Administration Rosuvastatin Calcium 5 mg 12/08/17 22:00 12/17/17 22:46 Crestor PO 5 mg HS ASPEN Administration Tamsulosin HCl 0.4 mg 12/12/17 13:30 12/18/17 09:11 Flomax PO 0.4 mg DAILY ASPEN Administration - Patient Studies Lab Studies: Microbiology Studies 12/17/17 14:29 Catheter Tip Culture - Final Femer Right No growth. 12/17/17 12:03 Gram Stain - Final Trachasp Sputum Culture - Preliminary Gram Negative [place] 12/17/17 12:03 Urine Culture - Preliminary Urine,Banda Gram Negative [place] 12/17/17 12:03 Blood Culture - Preliminary Blood NO GROWTH AFTER 24 HOURS 12/17/17 12:03 Blood Culture - Preliminary Blood NO GROWTH AFTER 24 HOURS Lab Studies 12/18/17 12/18/17 12/18/17 Range/Units 17:39 11:50 08:10 WBC 12.0 H (4.8-10.8) K/uL RBC 4.14 L (4.40-5.90) Mil/uL Hgb 12.3 (12.0-18.0) g/dL Hct 37.9 (35.0-51.0) % MCV 91.4 (80.0-94.0) fL MCH 29.8 (27.0-31.0) pg MCHC 32.6 L (33.0-37.0) g/dL RDW 14.8 H (11.5-14.5) % Plt Count 146 (130-400) K/uL MPV 10.5 (7.2-11.7) fL Neut % (Auto) 76.4 H (50.0-75.0) % Lymph % (Auto) 7.3 L (20.0-40.0) % [place] % (Auto) 15.8 H (0.0-10.0) % Eos % (Auto) 0.1 (0.0-4.0) % Baso % (Auto) 0.4 (0.0-2.0) % Neut # (Auto) 9.2 H (1.8-7.0) K/uL Lymph # (Auto) 0.9 L (1.0-4.3) K/uL [place] # (Auto) 1.9 H (0.0-0.8) K/uL Eos # (Auto) 0.0 (0.0-0.7) K/uL Baso # (Auto) 0.1 (0.0-0.2) K/uL Neutrophils % (Manual) 81 H (50-75) % Lymphocytes % (Manual) 5 L (20-40) % Monocytes % (Manual) 14 H (0-10) % Platelet Estimate Normal (NORMAL) RBC Morphology Normal Puncture Site pCO2 (35-45) mm/Hg pO2 (80-100) mm/Hg HCO3 (21-28) mmol/L ABG pH (7.35-7.45) ABG Total CO2 (22-28) mmol/L ABG O2 Saturation (95-98) % ABG Base Excess (-2.0-3.0) mmol/L ABG Hemoglobin (11.7-17.4) g/dL ABG Carboxyhemoglobin (0.5-1.5) % POC ABG HHb (Measured) (0.0-5.0) % ABG Methemoglobin (0.0-3.0) % Maicol Test A-a O2 Difference mm/Hg Respiratory Index Hgb O2 Saturation (95.0-98.0) % Vent Mode Mechanical Rate FiO2 % Tidal Volume PEEP Sodium (132-148) mmol/L Potassium (3.6-5.2) mmol/L Chloride (98-107) mmol/L Carbon Dioxide (22-30) mmol/L Anion Gap (10-20) BUN (9-20) mg/dL Creatinine (0.8-1.5) mg/dL Est GFR ( Amer) Est GFR (Non-Af Amer) POC Glucose (mg/dL) 121 H 166 H (65-110) mg/dL Random Glucose (75-110) mg/dL Calcium (8.6-10.4) mg/dl Phosphorus (2.5-4.5) mg/dL Magnesium (1.6-2.3) mg/dL Total Bilirubin (0.2-1.3) mg/dL AST (17-59) U/L ALT (21-72) U/L Alkaline Phosphatase (38-126) U/L Total Protein (6.3-8.3) g/dL Albumin (3.5-5.0) g/dL Globulin (2.2-3.9) gm/dL Albumin/Globulin Ratio (1.0-2.1) 12/18/17 12/18/17 12/18/17 Range/Units 05:22 04:57 04:48 WBC (4.8-10.8) K/uL RBC (4.40-5.90) Mil/uL Hgb (12.0-18.0) g/dL Hct (35.0-51.0) % MCV (80.0-94.0) fL MCH (27.0-31.0) pg MCHC (33.0-37.0) g/dL RDW (11.5-14.5) % Plt Count (130-400) K/uL MPV (7.2-11.7) fL Neut % (Auto) (50.0-75.0) % Lymph % (Auto) (20.0-40.0) % [place] % (Auto) (0.0-10.0) % Eos % (Auto) (0.0-4.0) % Baso % (Auto) (0.0-2.0) % Neut # (Auto) (1.8-7.0) K/uL Lymph # (Auto) (1.0-4.3) K/uL [place] # (Auto) (0.0-0.8) K/uL Eos # (Auto) (0.0-0.7) K/uL Baso # (Auto) (0.0-0.2) K/uL Neutrophils % (Manual) (50-75) % Lymphocytes % (Manual) (20-40) % Monocytes % (Manual) (0-10) % Platelet Estimate (NORMAL) RBC Morphology Puncture Site R rad pCO2 43 (35-45) mm/Hg pO2 86 (80-100) mm/Hg HCO3 32.8 H (21-28) mmol/L ABG pH 7.51 H (7.35-7.45) ABG Total CO2 35.6 H (22-28) mmol/L ABG O2 Saturation 97.9 (95-98) % ABG Base Excess 10.1 H (-2.0-3.0) mmol/L ABG Hemoglobin 12.7 (11.7-17.4) g/dL ABG Carboxyhemoglobin 1.5 (0.5-1.5) % POC ABG HHb (Measured) 2.0 (0.0-5.0) % ABG Methemoglobin 1.0 (0.0-3.0) % Maicol Test Pos A-a O2 Difference 163.0 mm/Hg Respiratory Index 1.6 Hgb O2 Saturation 95.5 (95.0-98.0) % Vent Mode Prvc Mechanical Rate 16 FiO2 45.0 % Tidal Volume 500 PEEP 5 Sodium 158 H (132-148) mmol/L Potassium 3.8 (3.6-5.2) mmol/L Chloride 114 H (98-107) mmol/L Carbon Dioxide 33 H (22-30) mmol/L Anion Gap 14 (10-20) BUN 76 H (9-20) mg/dL Creatinine 1.4 (0.8-1.5) mg/dL Est GFR ( Amer) > 60 Est GFR (Non-Af Amer) 50 POC Glucose (mg/dL) 131 H (65-110) mg/dL Random Glucose 150 H (75-110) mg/dL Calcium 8.5 L (8.6-10.4) mg/dl Phosphorus 3.8 (2.5-4.5) mg/dL Magnesium 3.0 H (1.6-2.3) mg/dL Total Bilirubin 1.1 (0.2-1.3) mg/dL AST 51 (17-59) U/L ALT 51 (21-72) U/L Alkaline Phosphatase 57 (38-126) U/L Total Protein 6.5 (6.3-8.3) g/dL Albumin 3.2 L (3.5-5.0) g/dL Globulin 3.3 (2.2-3.9) gm/dL Albumin/Globulin Ratio 1.0 (1.0-2.1) 12/17/17 12/17/17 Range/Units 23:46 18:03 WBC (4.8-10.8) K/uL RBC (4.40-5.90) Mil/uL Hgb (12.0-18.0) g/dL Hct (35.0-51.0) % MCV (80.0-94.0) fL MCH (27.0-31.0) pg MCHC (33.0-37.0) g/dL RDW (11.5-14.5) % Plt Count (130-400) K/uL MPV (7.2-11.7) fL Neut % (Auto) (50.0-75.0) % Lymph % (Auto) (20.0-40.0) % [place] % (Auto) (0.0-10.0) % Eos % (Auto) (0.0-4.0) % Baso % (Auto) (0.0-2.0) % Neut # (Auto) (1.8-7.0) K/uL Lymph # (Auto) (1.0-4.3) K/uL [place] # (Auto) (0.0-0.8) K/uL Eos # (Auto) (0.0-0.7) K/uL Baso # (Auto) (0.0-0.2) K/uL Neutrophils % (Manual) (50-75) % Lymphocytes % (Manual) (20-40) % Monocytes % (Manual) (0-10) % Platelet Estimate (NORMAL) RBC Morphology Puncture Site pCO2 (35-45) mm/Hg pO2 (80-100) mm/Hg HCO3 (21-28) mmol/L ABG pH (7.35-7.45) ABG Total CO2 (22-28) mmol/L ABG O2 Saturation (95-98) % ABG Base Excess (-2.0-3.0) mmol/L ABG Hemoglobin (11.7-17.4) g/dL ABG Carboxyhemoglobin (0.5-1.5) % POC ABG HHb (Measured) (0.0-5.0) % ABG Methemoglobin (0.0-3.0) % Maicol Test A-a O2 Difference mm/Hg Respiratory Index Hgb O2 Saturation (95.0-98.0) % Vent Mode Mechanical Rate FiO2 % Tidal Volume PEEP Sodium (132-148) mmol/L Potassium (3.6-5.2) mmol/L Chloride (98-107) mmol/L Carbon Dioxide (22-30) mmol/L Anion Gap (10-20) BUN (9-20) mg/dL Creatinine (0.8-1.5) mg/dL Est GFR ( Amer) Est GFR (Non-Af Amer) POC Glucose (mg/dL) 135 H 157 H (65-110) mg/dL Random Glucose (75-110) mg/dL Calcium (8.6-10.4) mg/dl Phosphorus (2.5-4.5) mg/dL Magnesium (1.6-2.3) mg/dL Total Bilirubin (0.2-1.3) mg/dL AST (17-59) U/L ALT (21-72) U/L Alkaline Phosphatase (38-126) U/L Total Protein (6.3-8.3) g/dL Albumin (3.5-5.0) g/dL Globulin (2.2-3.9) gm/dL Albumin/Globulin Ratio (1.0-2.1) Laboratory Results - last 24 hr 12/17/17 12/17/17 12/18/17 18:03 23:46 04:48 WBC RBC Hgb Hct MCV MCH MCHC RDW Plt Count MPV Neut % (Auto) Lymph % (Auto) [place] % (Auto) Eos % (Auto) Baso % (Auto) Neut # (Auto) Lymph # (Auto) [place] # (Auto) Eos # (Auto) Baso # (Auto) Neutrophils % (Manual) Lymphocytes % (Manual) Monocytes % (Manual) Platelet Estimate RBC Morphology Puncture Site pCO2 pO2 HCO3 ABG pH ABG Total CO2 ABG O2 Saturation ABG Base Excess ABG Hemoglobin ABG Carboxyhemoglobin POC ABG HHb (Measured) ABG Methemoglobin Maicol Test A-a O2 Difference Respiratory Index Hgb O2 Saturation Vent Mode Mechanical Rate FiO2 Tidal Volume PEEP Sodium Potassium Chloride Carbon Dioxide Anion Gap BUN Creatinine Est GFR ( Amer) Est GFR (Non-Af Amer) POC Glucose (mg/dL) 157 H 135 H 131 H Random Glucose Calcium Phosphorus Magnesium Total Bilirubin AST ALT Alkaline Phosphatase Total Protein Albumin Globulin Albumin/Globulin Ratio 12/18/17 12/18/17 12/18/17 04:57 05:22 08:10 WBC 12.0 H RBC 4.14 L Hgb 12.3 Hct 37.9 MCV 91.4 MCH 29.8 MCHC 32.6 L RDW 14.8 H Plt Count 146 MPV 10.5 Neut % (Auto) 76.4 H Lymph % (Auto) 7.3 L [place] % (Auto) 15.8 H Eos % (Auto) 0.1 Baso % (Auto) 0.4 Neut # (Auto) 9.2 H Lymph # (Auto) 0.9 L [place] # (Auto) 1.9 H Eos # (Auto) 0.0 Baso # (Auto) 0.1 Neutrophils % (Manual) 81 H Lymphocytes % (Manual) 5 L Monocytes % (Manual) 14 H Platelet Estimate Normal RBC Morphology Normal Puncture Site R rad pCO2 43 pO2 86 HCO3 32.8 H ABG pH 7.51 H ABG Total CO2 35.6 H ABG O2 Saturation 97.9 ABG Base Excess 10.1 H ABG Hemoglobin 12.7 ABG Carboxyhemoglobin 1.5 POC ABG HHb (Measured) 2.0 ABG Methemoglobin 1.0 Maicol Test Pos A-a O2 Difference 163.0 Respiratory Index 1.6 Hgb O2 Saturation 95.5 Vent Mode Prvc Mechanical Rate 16 FiO2 45.0 Tidal Volume 500 PEEP 5 Sodium 158 H Potassium 3.8 Chloride 114 H Carbon Dioxide 33 H Anion Gap 14 BUN 76 H Creatinine 1.4 Est GFR ( Amer) > 60 Est GFR (Non-Af Amer) 50 POC Glucose (mg/dL) Random Glucose 150 H Calcium 8.5 L Phosphorus 3.8 Magnesium 3.0 H Total Bilirubin 1.1 AST 51 ALT 51 Alkaline Phosphatase 57 Total Protein 6.5 Albumin 3.2 L Globulin 3.3 Albumin/Globulin Ratio 1.0 12/18/17 12/18/17 11:50 17:39 WBC RBC Hgb Hct MCV MCH MCHC RDW Plt Count MPV Neut % (Auto) Lymph % (Auto) [place] % (Auto) Eos % (Auto) Baso % (Auto) Neut # (Auto) Lymph # (Auto) [place] # (Auto) Eos # (Auto) Baso # (Auto) Neutrophils % (Manual) Lymphocytes % (Manual) Monocytes % (Manual) Platelet Estimate RBC Morphology Puncture Site pCO2 pO2 HCO3 ABG pH ABG Total CO2 ABG O2 Saturation ABG Base Excess ABG Hemoglobin ABG Carboxyhemoglobin POC ABG HHb (Measured) ABG Methemoglobin Maicol Test A-a O2 Difference Respiratory Index Hgb O2 Saturation Vent Mode Mechanical Rate FiO2 Tidal Volume PEEP Sodium Potassium Chloride Carbon Dioxide Anion Gap BUN Creatinine Est GFR ( Amer) Est GFR (Non-Af Amer) POC Glucose (mg/dL) 166 H 121 H Random Glucose Calcium Phosphorus Magnesium Total Bilirubin AST ALT Alkaline Phosphatase Total Protein Albumin Globulin Albumin/Globulin Ratio Critical Care Progress Note - Nutrition Nutrition: Nutrition Category Date Time Status Dysphagia/Modified Consistency Diet [DIET] Diets 12/18/17 Breakfast Active Attending/Attestation - Attestation I have personally seen and examined this patient.: Yes I have fully participated in the care of the patient.: Yes I have reviewed all pertinent clinical information: Yes Notes (Text): 12/18/17 18:12 patient seen and examined Patient extubated after obtaining trial Patient is awake and responsive febrile and on IV antibiotics Continue present treatment for now Follow-up culture and sensitivity Swallowing evaluation
[2017-12-18 08:49] LABS: LYMPHOCYTE 5 % (20-40); MONOCYTE 14 % (0-10); NEUTROPHIL 81 % (50-75); PLATELET ESTIMATE NORMAL (NORMAL); TOTAL CELLS COUNTED 100
[2017-12-18] MEDS: Enoxaparin 40 mg Syringe SC SCH (09:13)
[2017-12-18] MEDS: POLYETHYLENE GLYCOL 3350 17 GM/Dose PACKET NG SCH (11:01)
--- NOTE | 2017-12-18 11:19 | RAD ---
Date of service: 12/18/2017 HISTORY: Ventilator patient. COMPARISON: Multiple serial examinations preceding the most recent study: December 17, 2017. Study performed 07:19. FINDINGS: LUNGS: Stable right lower lobe infiltrate. Deeper inspiratory effort noted. PLEURA: Stable small bilateral pleural effusions. CARDIOVASCULAR: Cardiomegaly. No evidence of acute, significant cardiovascular disease. OSSEOUS STRUCTURES: No significant abnormalities. VISUALIZED UPPER ABDOMEN: Normal. OTHER FINDINGS: Stable position of endotracheal tube IMPRESSION: Stable infiltrates and effusions. Stable/satisfactory position of endotracheal tube
--- NOTE | 2017-12-18 11:47 | CP.PCM.PN ---
Subjective - Date & Time of Evaluation Date of Evaluation: 12/18/17 Time of Evaluation: 06:00 - Subjective Subjective: extubated alert OOB to chair Objective - Vital Signs/Intake and Output Vital Signs (last 24 hours): Temp Pulse Resp BP Pulse Ox 98.8 F 102 H 37 H 103/66 96 12/18/17 08:00 12/18/17 10:00 12/18/17 10:00 12/18/17 09:59 12/18/17 10:00 Intake and Output: 12/18/17 12/18/17 06:59 18:59 Intake Total 912.8 79.9 Output Total 520 225 Balance 392.8 -145.1 - Medications Medications: Current Medications Acetaminophen (Tylenol 325mg Tab) 650 mg PO Q6 PRN PRN Reason: Pain, Mild (1-3) Last Admin: 12/18/17 04:30 Dose: 650 mg Amiodarone HCl (Cordarone) 200 mg PO DAILY [facility] Last Admin: 12/18/17 09:12 Dose: 200 mg Aspirin (Aspirin Chewable) 81 mg PO DAILY [facility] Last Admin: 12/18/17 09:11 Dose: 81 mg Enoxaparin Sodium (Lovenox) 40 mg SC DAILY [facility] Last Admin: 12/18/17 09:13 Dose: 40 mg Furosemide (Lasix) 40 mg IVP Q12H [facility] Last Admin: 12/17/17 10:28 Dose: Not Given Dexmedetomidine HCl 200 mcg/ (Sodium Chloride) 50 mls @ 3.31 mls/hr IV TITR PRN ; Protocol; 0.2 MCG/KG/HR PRN Reason: Agitation Last Admin: 12/18/17 11:01 Dose: 0.5 mcg/kg/hr, 8.28 mls/hr Piperacillin Sod/Tazobactam Sod (Zosyn 3.375 Gm Iv Premix) 3.375 gm in 50 mls @ 100 mls/hr IVPB Q6H [facility] PRN Reason: Protocol Last Admin: 12/18/17 09:12 Dose: 100 mls/hr Vancomycin/Sodium Chloride (Vancomycin 1 Gm/Ns 200 Ml) 1 gm in 200 mls @ 166.6 mls/hr IVPB Q12H [facility] PRN Reason: Protocol Stop: 12/22/17 13:01 Last Admin: 12/18/17 00:59 Dose: 166.6 mls/hr Pantoprazole Sodium (Protonix Inj) 40 mg IVP DAILY [facility] Last Admin: 12/18/17 09:12 Dose: 40 mg Polyethylene Glycol (Miralax) 17 gm NG DAILY [facility] Last Admin: 12/18/17 11:01 Dose: 17 gm Rosuvastatin Calcium (Crestor) 5 mg PO HS [facility] Last Admin: 12/17/17 22:46 Dose: 5 mg Tamsulosin HCl (Flomax) 0.4 mg PO DAILY [facility] Last Admin: 12/18/17 09:11 Dose: 0.4 mg - Labs Labs: 12/18/17 08:10 12/18/17 05:22 PT 12.2 SECONDS (9.7-12.2) 12/17/17 06:07 INR 1.1 12/17/17 06:07 APTT 30 SECONDS (21-34) D 12/17/17 06:07 - Constitutional Appears: Non-toxic, Chronically Ill - Head Exam Head Exam: NORMOCEPHALIC - Eye Exam Eye Exam: PERRL - ENT Exam ENT Exam: Mucous Membranes Dry - Neck Exam Neck Exam: absent: Lymphadenopathy - Respiratory Exam Respiratory Exam: Decreased Breath Sounds - Cardiovascular Exam Cardiovascular Exam: REGULAR RHYTHM - GI/Abdominal Exam GI & Abdominal Exam: Distended, Soft Assessment and Plan (1) CHF exacerbation Status: Acute (2) Cardiac arrest Status: Acute (3) Fever Status: Acute - Assessment and Plan (Free Text) Assessment: await cultures cont iv rx
--- NOTE | 2017-12-18 16:04 | CP.PCM.PN ---
<Joaquín Gunter E - Last Filed: 12/18/17 16:00> Subjective - Date & Time of Evaluation Date of Evaluation: 12/18/17 Time of Evaluation: 10:40 - Subjective Subjective: Cardiology consult note (Dr. Maddox's service) Patient was seen and examined at bedside. Patient is awake, alert and extubated. Patient is very aggressive and needs some redirection. Patient did not offer any complaints at this time. Objective - Vital Signs/Intake and Output Vital Signs (last 24 hours): Temp Pulse Resp BP Pulse Ox 98.8 F 115 H 41 H 90/61 L 94 L 12/18/17 08:00 12/18/17 13:00 12/18/17 13:00 12/18/17 13:00 12/18/17 13:00 Intake and Output: 12/18/17 12/18/17 06:59 18:59 Intake Total 912.8 79.9 Output Total 520 225 Balance 392.8 -145.1 - Medications Medications: Current Medications Acetaminophen (Tylenol 325mg Tab) 650 mg PO Q6 PRN PRN Reason: Pain, Mild (1-3) Last Admin: 12/18/17 04:30 Dose: 650 mg Amiodarone HCl (Cordarone) 200 mg PO DAILY [facility] Last Admin: 12/18/17 09:12 Dose: 200 mg Aspirin (Aspirin Chewable) 81 mg PO DAILY [facility] Last Admin: 12/18/17 09:11 Dose: 81 mg Enoxaparin Sodium (Lovenox) 40 mg SC DAILY [facility] Last Admin: 12/18/17 09:13 Dose: 40 mg Furosemide (Lasix) 40 mg IVP Q12H [facility] Last Admin: 12/17/17 10:28 Dose: Not Given Dexmedetomidine HCl 200 mcg/ (Sodium Chloride) 50 mls @ 3.31 mls/hr IV TITR PRN ; Protocol; 0.2 MCG/KG/HR PRN Reason: Agitation Last Admin: 12/18/17 11:01 Dose: 0.5 mcg/kg/hr, 8.28 mls/hr Piperacillin Sod/Tazobactam Sod (Zosyn 3.375 Gm Iv Premix) 3.375 gm in 50 mls @ 100 mls/hr IVPB Q6H [facility] PRN Reason: Protocol Last Admin: 12/18/17 14:15 Dose: 100 mls/hr Vancomycin/Sodium Chloride (Vancomycin 1 Gm/Ns 200 Ml) 1 gm in 200 mls @ 166.6 mls/hr IVPB Q12H [facility] PRN Reason: Protocol Stop: 12/22/17 13:01 Last Admin: 12/18/17 12:59 Dose: 166.6 mls/hr Pantoprazole Sodium (Protonix Inj) 40 mg IVP DAILY [facility] Last Admin: 12/18/17 09:12 Dose: 40 mg Polyethylene Glycol (Miralax) 17 gm NG DAILY [facility] Last Admin: 12/18/17 11:01 Dose: 17 gm Rosuvastatin Calcium (Crestor) 5 mg PO HS [facility] Last Admin: 12/17/17 22:46 Dose: 5 mg Tamsulosin HCl (Flomax) 0.4 mg PO DAILY [facility] Last Admin: 12/18/17 09:11 Dose: 0.4 mg - Labs Labs: 12/18/17 08:10 12/18/17 05:22 PT 12.2 SECONDS (9.7-12.2) 12/17/17 06:07 INR 1.1 12/17/17 06:07 APTT 30 SECONDS (21-34) D 12/17/17 06:07 - Constitutional Appears: Non-toxic - Head Exam Head Exam: ATRAUMATIC - Eye Exam Eye Exam: EOMI - Respiratory Exam Respiratory Exam: NORMAL BREATHING PATTERN - Cardiovascular Exam Cardiovascular Exam: REGULAR RHYTHM, +S1, +S2 - GI/Abdominal Exam GI & Abdominal Exam: Soft, Normal Bowel Sounds - Extremities Exam Extremities Exam: absent: Calf Tenderness, Pedal Edema - Neurological Exam Neurological Exam: Alert, Awake - Psychiatric Exam Psychiatric exam: Agitated Assessment and Plan (1) NSTEMI (non-ST elevated myocardial infarction) Assessment & Plan: 72 [place] male w/ PMHx of HI, Afib, PVD, CHF, CAD, ACID, who presents to ED w/ shortness of breath & genital swelling, admitted with the diagnosis of CHF exacerbation. Patient states that upon presentation, he had shortness of breath and intermittent left-sided chest pain that is non-radiating. Cardiology consult placed for cardiac clearance for left inguinal hernia: Echo (2017): LV is moderately dilated. Normal left ventricular wall thickness. LV systolic function is severely impaired. EF (10-15%). LA is moderately dilated. Mild triscuspid regurgitation. Moderate pulmonary hypertension Repeat ECHO (12/11/17): LV moderately dilated. Mild to moderate concentric LVH. Systolic function is moderately impaired. Global hypokinesis LV. LVEF is 30%. Mild left ventricular diastolic dysfunction. Refer to the EMR for full impression Lexiscan stress test (12/11/17): Abnormal pharmacologic stress test Positive troponin: 0.6560-->1.6300-->1.5000 ( Post cardiac arrest) - Patient had cardiac arrest during cardiac catherization (12/12/17) and transferred to the ICU; ROSC obtained after 6 shocks, 2 rounds of Epi and 1 round of bicarb: 1. Was intubated, but currently extubated successfully 2. Amiodarone 200mg PO daily 3. CAD: ASA 81mg PO daily, Crestor 5mg PO HS 4. Abnormal stress test: Plans for cardiac catherization today cancelled due to fever. Will continue to evaluate for stability for a cardiac catherization Status: Acute (2) CHF exacerbation Assessment & Plan: BNP (12/17/17): 89699 Lasix 40mg IV Q12H Status: Acute (3) Fever Assessment & Plan: Tmax: 102.5 BC: No growth after 24 hours Vanco 1gm IV Q12H Zosyn 3.375gm IV Q6H Status: Acute (4) Prophylactic measure Assessment & Plan: DVT: Lovenox 40mg SC daily GI: Protonix 40mg IV daily Plans for cardiac catherization once patient is stable and without fever All plans and management discussed with Dr. Maddox Status: Acute <Corey Maddox - Last Filed: 12/18/17 23:07> Objective - Vital Signs/Intake and Output Vital Signs (last 24 hours): Temp Pulse Resp BP Pulse Ox 99.9 F H 104 H 21 109/74 94 L 12/18/17 20:00 12/18/17 21:59 12/18/17 21:59 12/18/17 21:59 12/18/17 21:59 Intake and Output: 12/18/17 12/19/17 18:59 06:59 Intake Total 873.2 300 Output Total 750 Balance 123.2 300 - Medications Medications: Current Medications Acetaminophen (Tylenol 325mg Tab) 650 mg PO Q6 PRN PRN Reason: Pain, Mild (1-3) Last Admin: 12/18/17 04:30 Dose: 650 mg Amiodarone HCl (Cordarone) 200 mg PO DAILY [facility] Last Admin: 12/18/17 09:12 Dose: 200 mg Aspirin (Aspirin Chewable) 81 mg PO DAILY [facility] Last Admin: 12/18/17 09:11 Dose: 81 mg Enoxaparin Sodium (Lovenox) 40 mg SC DAILY [facility] Last Admin: 12/18/17 09:13 Dose: 40 mg Furosemide (Lasix) 40 mg IVP Q12H [facility] Last Admin: 12/17/17 10:28 Dose: Not Given Dexmedetomidine HCl 200 mcg/ (Sodium Chloride) 50 mls @ 3.31 mls/hr IV TITR PRN ; Protocol; 0.2 MCG/KG/HR PRN Reason: Agitation Last Titration: 12/18/17 12:05 Dose: 0 mcg/kg/hr, 0 mls/hr Piperacillin Sod/Tazobactam Sod (Zosyn 3.375 Gm Iv Premix) 3.375 gm in 50 mls @ 100 mls/hr IVPB Q6H [facility] PRN Reason: Protocol Last Admin: 12/18/17 20:25 Dose: 100 mls/hr Vancomycin/Sodium Chloride (Vancomycin 1 Gm/Ns 200 Ml) 1 gm in 200 mls @ 166.6 mls/hr IVPB Q12H [facility] PRN Reason: Protocol Stop: 12/22/17 13:01 Last Admin: 12/18/17 12:59 Dose: 166.6 mls/hr Pantoprazole Sodium (Protonix Inj) 40 mg IVP DAILY [facility] Last Admin: 12/18/17 09:12 Dose: 40 mg Polyethylene Glycol (Miralax) 17 gm NG DAILY [facility] Last Admin: 12/18/17 11:01 Dose: 17 gm Rosuvastatin Calcium (Crestor) 5 mg PO HS [facility] Last Admin: 12/18/17 22:14 Dose: 5 mg Tamsulosin HCl (Flomax) 0.4 mg PO DAILY [facility] Last Admin: 12/18/17 09:11 Dose: 0.4 mg - Labs Labs: 12/18/17 08:10 12/18/17 05:22 PT 12.2 SECONDS (9.7-12.2) 12/17/17 06:07 INR 1.1 12/17/17 06:07 APTT 30 SECONDS (21-34) D 12/17/17 06:07 Assessment and Plan - Assessment and Plan (Free Text) Assessment: Patient seen and evaluated personally by me Plan of care d/w the medical transcription and as documented
[2017-12-19] MEDS: Vancomycin 1 gm/NS 200 ml 1 GM/200 ML BAG IVPB SCH
[2017-12-19] MEDS: Piperacill/Tazo 3.375gm in Dex 3.375 GM/50 ML BAG IVPB SCH ×3 (01:16→14:00)
[2017-12-19 06:38] LABS: BASO % 0.4 % (0.0-2.0); EOS # 0.1 K/uL (0.0-0.7); EOS % 0.6 % (0.0-4.0); HEMOGLOBIN 11.9 g/dL (12.0-18.0); LYMPH # 0.8 K/uL (1.0-4.3); LYMPH % 7.2 % (20.0-40.0); MEAN CELL VOLUME 91.4 fL (80.0-94.0); MEAN CORPUSCULAR HEMOGLOBIN 29.7 pg (27.0-31.0); MEAN CORPUSCULAR HGB CONC 32.4 g/dL (33.0-37.0); MEAN PLATELET VOLUME 10.4 fL (7.2-11.7); MONO # 1.2 K/uL (0.0-0.8); MONO % 11.5 % (0.0-10.0); NEUT # 8.7 K/uL (1.8-7.0); NEUT % 80.3 % (50.0-75.0); NRBC % 0.1 % (0.0-2.0); PLATELET COUNT 160 K/uL (130-400); RBC 4.02 Mil/uL (4.40-5.90); RED CELL DISTRIBUTION WIDTH 14.6 % (11.5-14.5); WHITE BLOOD COUNT 10.8 K/uL (4.8-10.8)
[2017-12-19 07:04] LABS: ALB/GLOB RATIO 0.9 (1.0-2.1); ALBUMIN 3.1 g/dL (3.5-5.0); CALCIUM 8.4 mg/dl (8.6-10.4)
[2017-12-19 08:56] LABS: LYMPHOCYTE 2 % (20-40); MONOCYTE 5 % (0-10); NEUTROPHIL 93 % (50-75); PLATELET ESTIMATE NORMAL (NORMAL); TOTAL CELLS COUNTED 100
[2017-12-19] MEDS: Enoxaparin 40 mg Syringe SC SCH (09:00)
[2017-12-19] MEDS: POLYETHYLENE GLYCOL 3350 17 GM/Dose PACKET NG SCH (09:00)
--- NOTE | 2017-12-19 10:21 | CP.PCM.PN ---
Subjective - Date & Time of Evaluation Date of Evaluation: 12/19/17 Time of Evaluation: 10:19 - Subjective Subjective: General surgery progress note for Dr. Monet Hernandez, PGY-2 Pt S & E at bedside at 0940 Pt sitting in chair at bedside, extubated. No complaints currently. Asking to go home. Objective - Vital Signs/Intake and Output Vital Signs (last 24 hours): Temp Pulse Resp BP Pulse Ox 98.5 F 99 H 23 126/82 95 12/19/17 04:00 12/19/17 05:59 12/19/17 05:59 12/19/17 05:59 12/19/17 05:59 Intake and Output: 12/19/17 12/19/17 06:59 18:59 Intake Total 550 Output Total 750 Balance -200 - Medications Medications: Current Medications Acetaminophen (Tylenol 325mg Tab) 650 mg PO Q6 PRN PRN Reason: Pain, Mild (1-3) Last Admin: 12/18/17 04:30 Dose: 650 mg Amiodarone HCl (Cordarone) 200 mg PO DAILY [facility] Last Admin: 12/18/17 09:12 Dose: 200 mg Aspirin (Aspirin Chewable) 81 mg PO DAILY [facility] Last Admin: 12/18/17 09:11 Dose: 81 mg Enoxaparin Sodium (Lovenox) 40 mg SC DAILY [facility] Last Admin: 12/18/17 09:13 Dose: 40 mg Furosemide (Lasix) 40 mg IVP Q12H [facility] Last Admin: 12/17/17 10:28 Dose: Not Given Dexmedetomidine HCl 200 mcg/ (Sodium Chloride) 50 mls @ 3.31 mls/hr IV TITR PRN; Protocol; 0.2 MCG/KG/HR PRN Reason: Agitation Last Titration: 12/18/17 12:05 Dose: 0 mcg/kg/hr, 0 mls/hr Piperacillin Sod/Tazobactam Sod (Zosyn 3.375 Gm Iv Premix) 3.375 gm in 50 mls @ 100 mls/hr IVPB Q6H [facility] PRN Reason: Protocol Last Admin: 12/19/17 01:16 Dose: 100 mls/hr Vancomycin/Sodium Chloride (Vancomycin 1 Gm/Ns 200 Ml) 1 gm in 200 mls @ 166.6 mls/hr IVPB Q12H [facility] PRN Reason: Protocol Stop: 12/22/17 13:01 Last Admin: 12/19/17 00:00 Dose: 166.6 mls/hr Pantoprazole Sodium (Protonix Inj) 40 mg IVP DAILY [facility] Last Admin: 12/18/17 09:12 Dose: 40 mg Polyethylene Glycol (Miralax) 17 gm NG DAILY [facility] Last Admin: 12/18/17 11:01 Dose: 17 gm Rosuvastatin Calcium (Crestor) 5 mg PO HS [facility] Last Admin: 12/18/17 22:14 Dose: 5 mg Tamsulosin HCl (Flomax) 0.4 mg PO DAILY [facility] Last Admin: 12/18/17 09:11 Dose: 0.4 mg - Labs Labs: 12/19/17 06:33 12/19/17 06:33 PT 12.2 SECONDS (9.7-12.2) 12/17/17 06:07 INR 1.1 12/17/17 06:07 APTT 30 SECONDS (21-34) D 12/17/17 06:07 - Constitutional Appears: Non-toxic, No Acute Distress - Head Exam Head Exam: ATRAUMATIC, NORMAL INSPECTION, NORMOCEPHALIC - Eye Exam Eye Exam: EOMI, Normal appearance - ENT Exam ENT Exam: Mucous Membranes Moist, Normal Exam - Neck Exam Neck Exam: Full ROM, Normal Inspection - Respiratory Exam Respiratory Exam: NORMAL BREATHING PATTERN - Cardiovascular Exam Cardiovascular Exam: REGULAR RHYTHM, +S1, +S2 - GI/Abdominal Exam GI & Abdominal Exam: Soft. absent: Distended, Firm, Tenderness - Extremities Exam Extremities Exam: Normal Inspection - Neurological Exam Neurological Exam: Alert, Awake, CN II-XII Intact, Oriented x3 - Psychiatric Exam Psychiatric exam: Normal Affect, Normal Mood - Skin Skin Exam: Dry, Intact, Normal Color, Warm Assessment and Plan - Assessment and Plan (Free Text) Assessment: 72M w/L inguinal hernia- asymptomatic, now extubated Plan: No indication for tracheostomy now that pt is extubated Recommend elective outpatient surgery for left inguinal hernia after medical stabilization and cardiac evaluation/clearance Please re-consult as needed Thank you for this consult Will DW Dr. Ruddy Hernandez, PGY-2
--- NOTE | 2017-12-19 14:25 | CP.PCM.PN ---
<JaniShoshanasara E - Last Filed: 12/19/17 18:15> Subjective - Date & Time of Evaluation Date of Evaluation: 12/19/17 Time of Evaluation: 09:50 - Subjective Subjective: Cardiology consult note (Dr. Maddox's service) Patient was seen and examined at bedside. Patient is awake, alert and extubated. Patient is more pleasant today and denies any acute complaints. Patient denies chest pain, palpitations, dizziness but does admits to mild SOB. Objective - Vital Signs/Intake and Output Vital Signs (last 24 hours): Temp Pulse Resp BP Pulse Ox 98.5 F 99 H 23 126/82 95 12/19/17 04:00 12/19/17 05:59 12/19/17 05:59 12/19/17 05:59 12/19/17 05:59 Intake and Output: 12/19/17 12/19/17 06:59 18:59 Intake Total 550 Output Total 750 Balance -200 - Medications Medications: Current Medications Acetaminophen (Tylenol 325mg Tab) 650 mg PO Q6 PRN PRN Reason: Pain, Mild (1-3) Last Admin: 12/18/17 04:30 Dose: 650 mg Amiodarone HCl (Cordarone) 200 mg PO DAILY [facility] Last Admin: 12/19/17 09:00 Dose: 200 mg Aspirin (Aspirin Chewable) 81 mg PO DAILY [facility] Last Admin: 12/19/17 09:00 Dose: 81 mg Enoxaparin Sodium (Lovenox) 40 mg SC DAILY [facility] Last Admin: 12/19/17 09:00 Dose: 40 mg Furosemide (Lasix) 40 mg IVP Q12H [facility] Last Admin: 12/17/17 10:28 Dose: Not Given Dexmedetomidine HCl 200 mcg/ (Sodium Chloride) 50 mls @ 3.31 mls/hr IV TITR PRN ; Protocol; 0.2 MCG/KG/HR PRN Reason: Agitation Last Titration: 12/18/17 12:05 Dose: 0 mcg/kg/hr, 0 mls/hr Piperacillin Sod/Tazobactam Sod (Zosyn 3.375 Gm Iv Premix) 3.375 gm in 50 mls @ 100 mls/hr IVPB Q6H [facility] PRN Reason: Protocol Last Admin: 12/19/17 08:00 Dose: 100 mls/hr Vancomycin/Sodium Chloride (Vancomycin 1 Gm/Ns 200 Ml) 1 gm in 200 mls @ 166.6 mls/hr IVPB Q12H [facility] PRN Reason: Protocol Stop: 12/22/17 13:01 Last Admin: 12/19/17 00:00 Dose: 166.6 mls/hr Pantoprazole Sodium (Protonix Inj) 40 mg IVP DAILY [facility] Last Admin: 12/19/17 09:00 Dose: 40 mg Polyethylene Glycol (Miralax) 17 gm NG DAILY [facility] Last Admin: 12/19/17 09:00 Dose: 17 gm Rosuvastatin Calcium (Crestor) 5 mg PO HS [facility] Last Admin: 12/18/17 22:14 Dose: 5 mg Tamsulosin HCl (Flomax) 0.4 mg PO DAILY [facility] Last Admin: 12/19/17 09:00 Dose: 0.4 mg - Labs Labs: 12/19/17 06:33 12/19/17 06:33 PT 12.2 SECONDS (9.7-12.2) 12/17/17 06:07 INR 1.1 12/17/17 06:07 APTT 30 SECONDS (21-34) D 12/17/17 06:07 - Constitutional Appears: Well, No Acute Distress - Head Exam Head Exam: ATRAUMATIC, NORMAL INSPECTION - Eye Exam Eye Exam: EOMI - ENT Exam ENT Exam: Mucous Membranes Moist - Respiratory Exam Respiratory Exam: NORMAL BREATHING PATTERN - Cardiovascular Exam Cardiovascular Exam: REGULAR RHYTHM, +S1, +S2 - GI/Abdominal Exam GI & Abdominal Exam: Soft, Normal Bowel Sounds. absent: Firm, Guarding, Rigid, Tenderness - Extremities Exam Extremities Exam: Normal Inspection. absent: Calf Tenderness, Pedal Edema - Neurological Exam Neurological Exam: Alert, Awake, Oriented x3 - Psychiatric Exam Psychiatric exam: Normal Affect - Skin Skin Exam: Normal Color Assessment and Plan (1) NSTEMI (non-ST elevated myocardial infarction) Assessment & Plan: 72 [place] male w/ PMHx of [place], Afib, PVD, CHF, CAD, ACID, who presents to ED w/ shortness of breath & genital swelling, admitted with the diagnosis of CHF exacerbation. Patient states that upon presentation, he had shortness of breath and intermittent left-sided chest pain that is non-radiating. Cardiology consult placed for cardiac clearance for left inguinal hernia: Echo (2017): LV is moderately dilated. Normal left ventricular wall thickness. LV systolic function is severely impaired. EF (10-15%). LA is moderately dilated. Mild triscuspid regurgitation. Moderate pulmonary hypertension Repeat ECHO (12/11/17): LV moderately dilated. Mild to moderate concentric LVH. Systolic function is moderately impaired. Global hypokinesis LV. LVEF is 30%. Mild left ventricular diastolic dysfunction. Refer to the EMR for full impression Lexiscan stress test (12/11/17): Abnormal pharmacologic stress test Positive troponin: 0.6560-->1.6300-->1.5000 ( Post cardiac arrest) - Patient had cardiac arrest during cardiac catherization (12/12/17) and transferred to the ICU; ROSC obtained after 6 shocks, 2 rounds of Epi and 1 round of bicarb: 1. Was intubated, but currently extubated successfully 2. Amiodarone 200mg PO daily 3. CAD: ASA 81mg PO daily, Crestor 5mg PO HS 4. Abnormal stress test: Plans for cardiac catherization today cancelled due to fever. Will continue to evaluate for stability for a cardiac catherization 5. Patient will need cardiac catherization before discharge Status: Acute (2) CHF exacerbation Assessment & Plan: BNP (12/17/17): 23239 Lasix 40mg IV Q12H Status: Acute (3) Fever Assessment & Plan: Tmax: 102.5 BC: No growth after 24 hours UC: [facility] Samson Sputum culture: Klebsiella Oxytoca Cefepime 1gm IV Q12H Status: Acute (4) Prophylactic measure Assessment & Plan: DVT: Lovenox 40mg SC daily GI: Protonix 40mg IV daily Plans for cardiac catherization once patient is consistently without fever. Patient will need cardiac catherization before discharge. All plans and management discussed with Dr. Maddox Status: Acute <Corey Maddox - Last Filed: 12/19/17 20:30> Objective - Vital Signs/Intake and Output Vital Signs (last 24 hours): Temp Pulse Resp BP Pulse Ox 97.3 F L 94 H 20 120/69 95 12/19/17 18:00 12/19/17 18:00 12/19/17 18:00 12/19/17 18:00 12/19/17 18:00 - Medications Medications: Current Medications Acetaminophen (Tylenol 325mg Tab) 650 mg PO Q6 PRN PRN Reason: Pain, Mild (1-3) Last Admin: 12/18/17 04:30 Dose: 650 mg Amiodarone HCl (Cordarone) 200 mg PO DAILY [facility] Last Admin: 12/19/17 09:00 Dose: 200 mg Aspirin (Aspirin Chewable) 81 mg PO DAILY [facility] Last Admin: 12/19/17 09:00 Dose: 81 mg Enoxaparin Sodium (Lovenox) 40 mg SC DAILY [facility] Last Admin: 12/19/17 09:00 Dose: 40 mg Furosemide (Lasix) 40 mg IVP Q12H [facility] Last Admin: 12/17/17 10:28 Dose: Not Given Cefepime HCl (Maxipime Iv 1 Gm Premix) 1 gm in 50 mls @ 100 mls/hr IVPB Q12H [facility] PRN Reason: Protocol Last Admin: 12/19/17 17:00 Dose: 100 mls/hr Pantoprazole Sodium (Protonix Inj) 40 mg IVP DAILY [facility] Last Admin: 12/19/17 09:00 Dose: 40 mg Polyethylene Glycol (Miralax) 17 gm NG DAILY [facility] Last Admin: 12/19/17 09:00 Dose: 17 gm Rosuvastatin Calcium (Crestor) 5 mg PO HS [facility] Last Admin: 12/18/17 22:14 Dose: 5 mg Tamsulosin HCl (Flomax) 0.4 mg PO DAILY [facility] Last Admin: 12/19/17 09:00 Dose: 0.4 mg - Labs Labs: 12/19/17 06:33 12/19/17 06:33 PT 12.2 SECONDS (9.7-12.2) 12/17/17 06:07 INR 1.1 12/17/17 06:07 APTT 30 SECONDS (21-34) D 12/17/17 06:07 Assessment and Plan - Assessment and Plan (Free Text) Assessment: Patient seen and evaluated personally by ct Plan of care d/w the medical lab assistant and as docuemented
--- NOTE | 2017-12-19 16:49 | CP.PCM.PN ---
Subjective - Date & Time of Evaluation Date of Evaluation: 12/19/17 Time of Evaluation: 10:00 - Subjective Subjective: less agitated afebrile NAD Objective - Vital Signs/Intake and Output Vital Signs (last 24 hours): Temp Pulse Resp BP Pulse Ox 97.8 F 104 H 29 H 101/71 92 L 12/19/17 15:24 12/19/17 15:00 12/19/17 14:00 12/19/17 13:00 12/19/17 12:00 Intake and Output: 12/19/17 12/19/17 06:59 18:59 Intake Total 550 Output Total 750 Balance -200 - Medications Medications: Current Medications Acetaminophen (Tylenol 325mg Tab) 650 mg PO Q6 PRN PRN Reason: Pain, Mild (1-3) Last Admin: 12/18/17 04:30 Dose: 650 mg Amiodarone HCl (Cordarone) 200 mg PO DAILY [facility] Last Admin: 12/19/17 09:00 Dose: 200 mg Aspirin (Aspirin Chewable) 81 mg PO DAILY [facility] Last Admin: 12/19/17 09:00 Dose: 81 mg Enoxaparin Sodium (Lovenox) 40 mg SC DAILY [facility] Last Admin: 12/19/17 09:00 Dose: 40 mg Furosemide (Lasix) 40 mg IVP Q12H [facility] Last Admin: 12/17/17 10:28 Dose: Not Given Piperacillin Sod/Tazobactam Sod (Zosyn 3.375 Gm Iv Premix) 3.375 gm in 50 mls @ 100 mls/hr IVPB Q6H [facility] PRN Reason: Protocol Last Admin: 12/19/17 14:00 Dose: 100 mls/hr Vancomycin/Sodium Chloride (Vancomycin 1 Gm/Ns 200 Ml) 1 gm in 200 mls @ 166.6 mls/hr IVPB Q12H [facility] PRN Reason: Protocol Stop: 12/22/17 13:01 Last Admin: 12/19/17 00:00 Dose: 166.6 mls/hr Pantoprazole Sodium (Protonix Inj) 40 mg IVP DAILY [facility] Last Admin: 12/19/17 09:00 Dose: 40 mg Polyethylene Glycol (Miralax) 17 gm NG DAILY [facility] Last Admin: 12/19/17 09:00 Dose: 17 gm Rosuvastatin Calcium (Crestor) 5 mg PO HS [facility] Last Admin: 12/18/17 22:14 Dose: 5 mg Tamsulosin HCl (Flomax) 0.4 mg PO DAILY [facility] Last Admin: 12/19/17 09:00 Dose: 0.4 mg - Labs Labs: 12/19/17 06:33 12/19/17 06:33 PT 12.2 SECONDS (9.7-12.2) 12/17/17 06:07 INR 1.1 12/17/17 06:07 APTT 30 SECONDS (21-34) D 12/17/17 06:07 - Constitutional Appears: Non-toxic, Chronically Ill - Head Exam Head Exam: NORMOCEPHALIC - Eye Exam Eye Exam: PERRL - ENT Exam ENT Exam: Mucous Membranes Dry - Neck Exam Neck Exam: absent: Lymphadenopathy - Respiratory Exam Respiratory Exam: Decreased Breath Sounds - Cardiovascular Exam Cardiovascular Exam: REGULAR RHYTHM - GI/Abdominal Exam GI & Abdominal Exam: Distended, Soft - Rectal Exam Rectal Exam: Deferred - Exam Exam: NORMAL INSPECTION - Extremities Exam Extremities Exam: absent: Pedal Edema - Back Exam Back Exam: absent: CVA tenderness (L), CVA tenderness (R) - Neurological Exam Neurological Exam: Alert, Awake, CN II-XII Intact Assessment and Plan (1) CHF exacerbation Status: Acute (2) Cardiac arrest Status: Acute (3) Fever Status: Acute - Assessment and Plan (Free Text) Assessment: urine and sputum c/s noted ok to d/c vanco as blood cultures negative
[2017-12-19] MEDS: Cefepime IV 1 gm in Dextrose 1 GM/50 ML BAG IVPB SCH (17:00)
[2017-12-20] MEDS: Cefepime IV 1 gm in Dextrose 1 GM/50 ML BAG IVPB SCH ×2 (04:53→20:02)
--- NOTE | 2017-12-20 06:17 | CP.PCM.PN ---
Subjective - Date & Time of Evaluation Date of Evaluation: 12/20/17 Time of Evaluation: 07:00 - Subjective Subjective: PGY 1 Medicine Progress Note for Dr. Gonzalez. Patient downgraded from ICU to Tele. Patient was admitted on 12/08 for acute CHF exacerbation & inguinal hernia. On 12/12 patient was undergoing cardiac catherization patient underwent cardiac arrest and transferred to the ICU; ROSC obtained after 6 shocks, 2 rounds of Epi and 1 round of bicarb. During ICU pt required intubation, now ex-tubated Patient seen and examined at bedside in AM. Patient lying in bed, no acute distress. No overnight events reported. Patient currently denies chest pain, shortness of breath. Patient states he needs assistance to get up and use the rest room. Patient reports urinating frequently with issues. Patient denies constipation, diarrhea. Objective - Vital Signs/Intake and Output Vital Signs (last 24 hours): Temp Pulse Resp BP Pulse Ox 98.2 F 86 20 110/59 L 98 12/19/17 23:05 12/20/17 00:10 12/19/17 23:05 12/19/17 23:05 12/19/17 23:05 Intake and Output: 12/19/17 12/20/17 18:59 06:59 Intake Total 50 Output Total 550 Balance -500 - Medications Medications: Current Medications Acetaminophen (Tylenol 325mg Tab) 650 mg PO Q6 PRN PRN Reason: Pain, Mild (1-3) Last Admin: 12/18/17 04:30 Dose: 650 mg Amiodarone HCl (Cordarone) 200 mg PO DAILY [facility] Last Admin: 12/19/17 09:00 Dose: 200 mg Aspirin (Aspirin Chewable) 81 mg PO DAILY [facility] Last Admin: 12/19/17 09:00 Dose: 81 mg Enoxaparin Sodium (Lovenox) 40 mg SC DAILY [facility] Last Admin: 12/19/17 09:00 Dose: 40 mg Furosemide (Lasix) 40 mg IVP Q12H [facility] Last Admin: 12/17/17 10:28 Dose: Not Given Cefepime HCl (Maxipime Iv 1 Gm Premix) 1 gm in 50 mls @ 100 mls/hr IVPB Q12H [facility] PRN Reason: Protocol Last Admin: 12/20/17 04:53 Dose: 100 mls/hr Pantoprazole Sodium (Protonix Inj) 40 mg IVP DAILY [facility] Last Admin: 12/19/17 09:00 Dose: 40 mg Polyethylene Glycol (Miralax) 17 gm NG DAILY [facility] Last Admin: 12/19/17 09:00 Dose: 17 gm Rosuvastatin Calcium (Crestor) 5 mg PO HS [facility] Last Admin: 12/19/17 21:17 Dose: 5 mg Tamsulosin HCl (Flomax) 0.4 mg PO DAILY [facility] Last Admin: 12/19/17 09:00 Dose: 0.4 mg - Labs Labs: 12/19/17 06:33 12/19/17 06:33 PT 12.2 SECONDS (9.7-12.2) 12/17/17 06:07 INR 1.1 12/17/17 06:07 APTT 30 SECONDS (21-34) D 12/17/17 06:07 - Constitutional Appears: Non-toxic, No Acute Distress - Head Exam Head Exam: ATRAUMATIC, NORMAL INSPECTION, NORMOCEPHALIC - Eye Exam Eye Exam: EOMI, Normal appearance - ENT Exam ENT Exam: Mucous Membranes Moist - Respiratory Exam Respiratory Exam: Decreased Breath Sounds, Rales. absent: Clear to Ausculation Bilateral, Rhonchi, Wheezes - Cardiovascular Exam Cardiovascular Exam: +S1, +S2. absent: Irregular Rhythm, Murmur - GI/Abdominal Exam GI & Abdominal Exam: Soft, Normal Bowel Sounds. absent: Guarding, Rigid, Tenderness - Exam Exam: Scrotal Swelling Additional comments: 2/2 to L inguinal hernia no erythema/ no discoloration present - Neurological Exam Neurological Exam: Alert, Awake, Oriented x3 - Psychiatric Exam Psychiatric exam: Normal Affect, Normal Mood - Skin Skin Exam: Dry, Intact, Normal Color, Warm Assessment and Plan - Assessment and Plan (Free Text) Assessment: 72 yo Vietnamese-speaking M with PMHx of [place], Afib, PVD, CHF, CAD, ACID placement, presenting with worsening shortness of breath & L inguinal hernia without signs of incarceration or obstruction, s/p extubation 2/2 cardiac arrest during cardiac catherization (12/12/17); ROSC obtained after 6 shocks, 2 rounds of Epi and 1 round of bicarb: Plan: NSTEMI (non-ST elevated myocardial infarction) CHF exacerbation - BNP: Currently: 8140 (On admission 6140 (trended down prior to cardiac arrest on 12/12/17)) - Trops x 3 negative (on admission), recent trops during cardiac arrest elevated in 1.5s - strict I/Os - continue to keep head of bed elevated @ 45 degrees Imaging: - CXR (12/08): Moderate to severe venous congestion. Moderate loculated left and small right pleural effusion. Prominent consolidative opacification in the left mid to lower lung zone and right lung base. Prominent vascularity in the right paratracheal region. Cardiomegaly. Left-sided pacemaker - Echo: LVEF 30%, LV moderately dilated, mild to moderate concentric LVH, mild left ventricular diastolic dysfunction, sytolic function moderaly impared, Moderate pulmomoc valvular regurgitation Current management: - hold home med: spironolactone 25 mg PO daily (held 2/2 BP) - c/w lasix 40mg IV Q12 - c/w amiodarone 200 PO daily - awaiting cardiact catheterization - D/C to [facility] - PT eval/treat Inguinal Hernia - CT abdomen/pelvis (12/08): L inguinal hernia with no evidence of incarceration or obstruction - f/u Vascular surgery (Dr. Fox) recs - pt will obtain surgery as outpatient - f/u Cardio (Dr. Maddox) recs (cardiac clearance for surgery) - cardiac arrest during cardiac catherization (12/12/17) - ROSC obtained after 6 shocks, 2 rounds of Epi and 1 round of bicarb - Will require cardiac catherization prior to discharge Atrial Fibrillation Chronic -d/c home medications held s/p cardiac arrest -Digoxin 0.125mg PO daily -ASA 81mg PO daily -coreg 12.5 mg PO daily - started amiodarone 200 mg PO daily - c/w Aspirin 81 mg PO daily -No other anticoagulation 2/2 previous GI bleed HTN Chronic -hold home meds: -coreg 12.5 mg PO daily -lisinopril 5mg PO daily -amiodarone 200 PO daily CAD Chronic -c/w home medications: -Crestor 5 mg PO daily -ASA 81mg PO daily PPx, Diet, Disposition - DVT ppx: Lovenox 40 sc daily - GI: protonix 40 PO daily - cardiac heart healthy diet Case discussed with Dr. Gonzalez PGY1 [place]
[2017-12-20] MEDS: Enoxaparin 40 mg Syringe SC SCH (09:02)
[2017-12-20] MEDS: POLYETHYLENE GLYCOL 3350 17 GM/Dose PACKET NG SCH (09:02)
[2017-12-20 10:45] LABS: BASO # 0.1 K/uL (0.0-0.2); BASO % 0.8 % (0.0-2.0); EOS # 0.3 K/uL (0.0-0.7); EOS % 3.8 % (0.0-4.0); HEMOGLOBIN 11.6 g/dL (12.0-18.0); LYMPH # 0.7 K/uL (1.0-4.3); LYMPH % 9.5 % (20.0-40.0); MEAN CELL VOLUME 91.5 fL (80.0-94.0); MEAN CORPUSCULAR HEMOGLOBIN 29.7 pg (27.0-31.0); MEAN CORPUSCULAR HGB CONC 32.5 g/dL (33.0-37.0); MEAN PLATELET VOLUME 10.7 fL (7.2-11.7); MONO # 0.8 K/uL (0.0-0.8); MONO % 10.3 % (0.0-10.0); NEUT # 5.7 K/uL (1.8-7.0); NEUT % 75.6 % (50.0-75.0); NRBC % 0.1 % (0.0-2.0); PLATELET COUNT 182 K/uL (130-400); RBC 3.92 Mil/uL (4.40-5.90); RED CELL DISTRIBUTION WIDTH 14.2 % (11.5-14.5); WHITE BLOOD COUNT 7.5 K/uL (4.8-10.8)
[2017-12-20 11:15] LABS: ALB/GLOB RATIO 0.9 (1.0-2.1); ALBUMIN 2.9 g/dL (3.5-5.0); CALCIUM 8.1 mg/dl (8.6-10.4)
[2017-12-20 11:37] LABS: BANDS 2 % (0-2); EOSINOPHIL 2 % (0-4); LYMPHOCYTE 9 % (20-40); METAMYELOCYTE 1 % (0-0); MONOCYTE 8 % (0-10); NEUTROPHIL 78 % (50-75); PLATELET ESTIMATE NORMAL (NORMAL); TOTAL CELLS COUNTED 100
--- NOTE | 2017-12-20 11:54 | CP.PCM.PN ---
Subjective - Date & Time of Evaluation Date of Evaluation: 12/20/17 Time of Evaluation: 09:45 - Subjective Subjective: Cardiology consult note (Dr. Dodson covering for Dr. Maddox's service) Patient was seen and examined at bedside. Patient is awake, alert and oriented. Patient remains pleasant and denies any acute complaints. Patient denies chest pain, palpitations, dizziness but does admits to mild SOB. Patient is tolerating liquid diet and states that he wants to gain his strength back. Patient continues to work with PT and OT. Objective - Vital Signs/Intake and Output Vital Signs (last 24 hours): Temp Pulse Resp BP Pulse Ox 98.1 F 81 20 109/82 97 12/20/17 07:30 12/20/17 08:02 12/20/17 07:30 12/20/17 07:30 12/20/17 07:30 Intake and Output: 12/20/17 12/20/17 06:59 18:59 Intake Total 550 Output Total 950 Balance -400 - Medications Medications: Current Medications Acetaminophen (Tylenol 325mg Tab) 650 mg PO Q6 PRN PRN Reason: Pain, Mild (1-3) Last Admin: 12/18/17 04:30 Dose: 650 mg Amiodarone HCl (Cordarone) 200 mg PO DAILY [facility] Last Admin: 12/20/17 09:01 Dose: 200 mg Aspirin (Aspirin Chewable) 81 mg PO DAILY [facility] Last Admin: 12/20/17 09:01 Dose: 81 mg Enoxaparin Sodium (Lovenox) 40 mg SC DAILY [facility] Last Admin: 12/20/17 09:02 Dose: 40 mg Furosemide (Lasix) 40 mg IVP Q12H [facility] Last Admin: 12/17/17 10:28 Dose: Not Given Cefepime HCl (Maxipime Iv 1 Gm Premix) 1 gm in 50 mls @ 100 mls/hr IVPB Q12H [facility] PRN Reason: Protocol Last Admin: 12/20/17 04:53 Dose: 100 mls/hr Pantoprazole Sodium (Protonix Inj) 40 mg IVP DAILY [facility] Last Admin: 12/20/17 09:06 Dose: 40 mg Polyethylene Glycol (Miralax) 17 gm NG DAILY [facility] Last Admin: 12/20/17 09:02 Dose: 17 gm Rosuvastatin Calcium (Crestor) 5 mg PO HS [facility] Last Admin: 12/19/17 21:17 Dose: 5 mg Tamsulosin HCl (Flomax) 0.4 mg PO DAILY [facility] Last Admin: 12/20/17 09:00 Dose: 0.4 mg - Labs Labs: 12/20/17 10:40 12/20/17 10:40 PT 12.2 SECONDS (9.7-12.2) 12/17/17 06:07 INR 1.1 12/17/17 06:07 APTT 30 SECONDS (21-34) D 12/17/17 06:07 - Constitutional Appears: No Acute Distress - Head Exam Head Exam: ATRAUMATIC, NORMAL INSPECTION - Eye Exam Eye Exam: EOMI, Normal appearance - ENT Exam ENT Exam: Mucous Membranes Moist - Respiratory Exam Respiratory Exam: NORMAL BREATHING PATTERN - Cardiovascular Exam Cardiovascular Exam: REGULAR RHYTHM, +S1, +S2 Additional comments: With AICD - Extremities Exam Extremities Exam: absent: Calf Tenderness, Pedal Edema - Neurological Exam Neurological Exam: Alert, Awake, Oriented x3 - Psychiatric Exam Psychiatric exam: Normal Affect - Skin Skin Exam: Normal Color Assessment and Plan (1) NSTEMI (non-ST elevated myocardial infarction) Assessment & Plan: 72 Bulgarian male w/ PMHx of [place], Afib, PVD, CHF, CAD, ACID, who presents to ED w/ shortness of breath & genital swelling, admitted with the diagnosis of CHF exacerbation. Patient states that upon presentation, he had shortness of breath and intermittent left-sided chest pain that is non-radiating. Cardiology consult placed for cardiac clearance for left inguinal hernia: Echo (2017): LV is moderately dilated. Normal left ventricular wall thickness. LV systolic function is severely impaired. EF (10-15%). LA is moderately dilated. Mild triscuspid regurgitation. Moderate pulmonary hypertension Repeat ECHO (12/11/17): LV moderately dilated. Mild to moderate concentric LVH. Systolic function is moderately impaired. Global hypokinesis LV. LVEF is 30%. Mild left ventricular diastolic dysfunction. Refer to the EMR for full impression Lexiscan stress test (12/11/17): Abnormal pharmacologic stress test Positive troponin: 0.6560-->1.6300-->1.5000 ( Post cardiac arrest) - Patient had cardiac arrest during cardiac catherization (12/12/17) and transferred to the ICU; ROSC obtained after 6 shocks, 2 rounds of Epi and 1 round of bicarb: 1. Was intubated, but currently extubated successfully 2. Amiodarone 200mg PO daily 3. CAD: ASA 81mg PO daily, Crestor 5mg PO HS 4. Abnormal stress test: Plans for cardiac catherization today cancelled due to fever. Will continue to evaluate for stability for a cardiac catherization 5. Patient will need cardiac catherization before discharge Status: Acute (2) CHF exacerbation Assessment & Plan: BNP (12/17/17): 74303---> 8140 (12/19/17) Lasix 40mg IV Q12H Status: Acute (3) Fever Assessment & Plan: Tmax: 102.5 Afebrile for 24 hours BC: No growth after 24 hours UC: [facility] Sputum culture: Klebsiella Oxytoca Cefepime 1gm IV Q12H Status: Acute (4) Prophylactic measure Assessment & Plan: DVT: Lovenox 40mg SC daily GI: Protonix 40mg IV daily Plans for cardiac catherization once patient is consistently without fever. Patient will need cardiac catherization before discharge. Status: Acute
[2017-12-20] MEDS ORDERED: Potassium Ch 20mEq in D5-1/2NS 1,000 ML IV SCH (16:00)
[2017-12-20 22:52] LABS: SQUAMOUS EPITHIAL 1 /hpf (0-5); URINE BACTERIA RARE (<OCC); URINE BILIRUBIN NEGATIVE (NEGATIVE); URINE BLOOD NEGATIVE (NEGATIVE); URINE CLARITY Clear (Clear); URINE COLOR Yellow (YELLOW); URINE GLUCOSE (UA) NORMAL (Normal); URINE LEUKOCYTE ESTERASE NEG Leu/uL (Negative); URINE PROTEIN 1+ mg/dL (NEGATIVE); URINE UROBILINOGEN NORMAL mg/dL (0.2-1.0)
[2017-12-21] MEDS: Cefepime IV 1 gm in Dextrose 1 GM/50 ML BAG IVPB SCH ×2 (06:00→16:41)
[2017-12-21 08:06] LABS: BASO % 0.4 % (0.0-2.0); EOS # 0.4 K/uL (0.0-0.7); EOS % 5.6 % (0.0-4.0); HEMOGLOBIN 11.7 g/dL (12.0-18.0); LYMPH % 12.2 % (20.0-40.0); MEAN CELL VOLUME 90.5 fL (80.0-94.0); MEAN CORPUSCULAR HEMOGLOBIN 30.7 pg (27.0-31.0); MEAN CORPUSCULAR HGB CONC 33.9 g/dL (33.0-37.0); MEAN PLATELET VOLUME 10.3 fL (7.2-11.7); MONO # 0.9 K/uL (0.0-0.8); MONO % 11.2 % (0.0-10.0); NEUT # 5.5 K/uL (1.8-7.0); NEUT % 70.6 % (50.0-75.0); RBC 3.79 Mil/uL (4.40-5.90); RED CELL DISTRIBUTION WIDTH 14.1 % (11.5-14.5); WHITE BLOOD COUNT 7.8 K/uL (4.8-10.8)
[2017-12-21 08:14] LABS: ALB/GLOB RATIO 0.9 (1.0-2.1); ALBUMIN 2.9 g/dL (3.5-5.0); ALT/SGPT 66 U/L (21-72); AST/SGOT 46 U/L (17-59); BLOOD UREA NITROGEN 66 mg/dL (9-20); CALCIUM 8.1 mg/dl (8.6-10.4); GFR NON-AFRICAN AMERICAN 60
[2017-12-21] MEDS: Pantoprazole 40 mg Susp UD PO SCH (10:06)
[2017-12-21] MEDS: Enoxaparin 40 mg Syringe SC SCH (10:07)
[2017-12-21] MEDS: POLYETHYLENE GLYCOL 3350 17 GM/Dose PACKET NG SCH (10:09)
--- NOTE | 2017-12-21 12:44 | CP.PCM.PN ---
Subjective - Date & Time of Evaluation Date of Evaluation: 12/21/17 Time of Evaluation: 10:30 - Subjective Subjective: PGY-1 Medicine Progress Note for Dr. Gonzalez Patient was seen and examined today at bedside in no acute distress. Nurse reports no overnight events. Patient has no new complaints. He still feels weak and cannot take continuous deep breaths without feeling dizzy. Denies other chest pain, shortness of breath, abdominal pain, nausea, vomiting. He is eating well and reporting a healthy appetite, however complains of the dysphagia diet and would prefer a regular diet. He is having no issues voiding and is having regular BM. Objective - Vital Signs/Intake and Output Vital Signs (last 24 hours): Temp Pulse Resp BP Pulse Ox 97.8 F 78 20 106/70 90 L 12/20/17 23:00 12/21/17 12:14 12/20/17 23:00 12/20/17 23:00 12/20/17 23:00 Intake and Output: 12/21/17 12/21/17 06:59 18:59 Intake Total 470 Output Total 250 Balance 220 - Medications Medications: Current Medications Acetaminophen (Tylenol 325mg Tab) 650 mg PO Q6 PRN PRN Reason: Pain, Mild (1-3) Last Admin: 12/18/17 04:30 Dose: 650 mg Amiodarone HCl (Cordarone) 200 mg PO DAILY [facility] Last Admin: 12/21/17 10:06 Dose: 200 mg Aspirin (Aspirin Chewable) 81 mg PO DAILY [facility] Last Admin: 12/21/17 10:06 Dose: 81 mg Enoxaparin Sodium (Lovenox) 40 mg SC DAILY [facility] Last Admin: 12/21/17 10:07 Dose: 40 mg Furosemide (Lasix) 40 mg IVP Q12H [facility] Last Admin: 12/17/17 10:28 Dose: Not Given Cefepime HCl (Maxipime Iv 1 Gm Premix) 1 gm in 50 mls @ 100 mls/hr IVPB Q12H [facility] PRN Reason: Protocol Last Admin: 12/21/17 06:00 Dose: 100 mls/hr Pantoprazole Sodium (Protonix Susp) 40 mg PO DAILY [facility] Last Admin: 12/21/17 10:06 Dose: 40 mg Polyethylene Glycol (Miralax) 17 gm NG DAILY [facility] Last Admin: 12/21/17 10:09 Dose: Not Given Rosuvastatin Calcium (Crestor) 5 mg PO HS [facility] Last Admin: 12/20/17 21:13 Dose: 5 mg Tamsulosin HCl (Flomax) 0.4 mg PO DAILY [facility] Last Admin: 12/21/17 10:06 Dose: 0.4 mg - Labs Labs: 12/21/17 07:42 12/21/17 07:42 PT 12.2 SECONDS (9.7-12.2) 12/17/17 06:07 INR 1.1 12/17/17 06:07 APTT 30 SECONDS (21-34) D 12/17/17 06:07 - Constitutional Appears: Non-toxic, No Acute Distress - Head Exam Head Exam: ATRAUMATIC, NORMOCEPHALIC - Eye Exam Eye Exam: EOMI - ENT Exam ENT Exam: Mucous Membranes Moist - Respiratory Exam Respiratory Exam: Decreased Breath Sounds. absent: Rales, Rhonchi, Wheezes - Cardiovascular Exam Cardiovascular Exam: +S1, +S2. absent: Irregular Rhythm, Murmur - GI/Abdominal Exam GI & Abdominal Exam: Soft, Normal Bowel Sounds. absent: Tenderness - Exam Exam: Scrotal Swelling Additional comments: scrotal swelling 2/2 L inguinal hernia no erythema/no discoloration - Extremities Exam Additional comments: IV R hand - Neurological Exam Neurological Exam: Alert, Awake, Oriented x3 - Psychiatric Exam Psychiatric exam: Normal Affect, Normal Mood - Skin Skin Exam: Dry, Intact, Normal Color Assessment and Plan - Assessment and Plan (Free Text) Assessment: 72 yo [place]gu[place]-speaking M with PMH of ID, Afib, PVD, CHF, CAD, ACID placement, presenting with worsening shortness of breath & L inguinal hernia without signs of incarceration or obstruction, s/p extubation 2/2 cardiac arrest during cardiac catherization (12/12/17); ROSC obtained after 6 shocks, 2 rounds of Epi and 1 round of bicarb. Plan: NSTEMI (non-ST elevated myocardial infarction) CHF exacerbation - BNP: Currently: 8140 (On admission 6140 (trended down prior to cardiac arrest on 12/12/17)) - Trops x 3 negative (on admission), recent trops during cardiac arrest elevated in 1.5s - strict I/Os - continue to keep head of bed elevated @ 45 degrees Imaging: - CXR (12/08): Moderate to severe venous congestion. Moderate loculated left and small right pleural effusion. Prominent consolidative opacification in the left mid to lower lung zone and right lung base. Prominent vascularity in the right paratracheal region. Cardiomegaly. Left-sided pacemaker - Echo: LVEF 30%, LV moderately dilated, mild to moderate concentric LVH, mild left ventricular diastolic dysfunction, sytolic function moderaly impared, Moderate pulmomoc valvular regurgitation Current management: - hold home med: spironolactone 25 mg PO daily (held 2/2 BP) - c/w lasix 40mg IV Q12 - c/w amiodarone 200 PO daily - awaiting cardiac catheterization - D/C to [facility] - PT eval/treat Inguinal Hernia - CT abdomen/pelvis (12/08): L inguinal hernia with no evidence of incarceration or obstruction - f/u Vascular surgery (Dr. Fox) recs - pt will obtain surgery as outpatient - f/u Cardio (Dr. Maddox) recs (cardiac clearance for surgery) - cardiac arrest during cardiac catherization (12/12/17) - ROSC obtained after 6 shocks, 2 rounds of Epi and 1 round of bicarb - Will require cardiac catherization prior to discharge Atrial Fibrillation Chronic -d/c home medications held s/p cardiac arrest -Digoxin 0.125mg PO daily -ASA 81mg PO daily -coreg 12.5 mg PO daily - started amiodarone 200 mg PO daily - c/w Aspirin 81 mg PO daily - No other anticoagulation 2/2 previous GI bleed HTN Chronic -hold home meds: -coreg 12.5 mg PO daily -lisinopril 5mg PO daily -amiodarone 200 PO daily CAD Chronic -c/w home medications: -Crestor 5 mg PO daily -ASA 81mg PO daily Hypokalemia -replete with 20meq daily -monitor with AM labs PPx, Diet, Disposition - DVT ppx: Lovenox 40 sc daily - GI: protonix 40 PO daily - Heart Healthy Diet: advanced bite size, thin liquid, 2g Na Dispo: will need cardiac cath prior to discharge, posisbly Mon. d/c to [facility] after cardiac clearance. d/w Dr. Carlos Michael PGY-1
--- NOTE | 2017-12-21 19:09 | CP.PCM.PN ---
Subjective - Date & Time of Evaluation Date of Evaluation: 12/21/17 Time of Evaluation: 07:00 - Subjective Subjective: no fever all cultures reviewed Objective - Vital Signs/Intake and Output Vital Signs (last 24 hours): Temp Pulse Resp BP Pulse Ox 97.8 F 79 20 134/83 95 12/21/17 15:50 12/21/17 15:50 12/21/17 15:50 12/21/17 15:50 12/21/17 15:50 - Medications Medications: Current Medications Acetaminophen (Tylenol 325mg Tab) 650 mg PO Q6 PRN PRN Reason: Pain, Mild (1-3) Last Admin: 12/18/17 04:30 Dose: 650 mg Amiodarone HCl (Cordarone) 200 mg PO DAILY [facility] Last Admin: 12/21/17 10:06 Dose: 200 mg Aspirin (Aspirin Chewable) 81 mg PO DAILY [facility] Last Admin: 12/21/17 10:06 Dose: 81 mg Enoxaparin Sodium (Lovenox) 40 mg SC DAILY [facility] Last Admin: 12/21/17 10:07 Dose: 40 mg Furosemide (Lasix) 40 mg IVP Q12H [facility] Last Admin: 12/17/17 10:28 Dose: Not Given Cefepime HCl (Maxipime Iv 1 Gm Premix) 1 gm in 50 mls @ 100 mls/hr IVPB Q12H [facility] PRN Reason: Protocol Last Admin: 12/21/17 16:41 Dose: 100 mls/hr Potassium Chloride/Dextrose (Potassium Chl 20 Meq In D5w) 1,000 mls @ 63 mls/ hr IV .[id number] [facility] Pantoprazole Sodium (Protonix Susp) 40 mg PO DAILY [facility] Last Admin: 12/21/17 10:06 Dose: 40 mg Polyethylene Glycol (Miralax) 17 gm NG DAILY [facility] Last Admin: 12/21/17 10:09 Dose: Not Given Rosuvastatin Calcium (Crestor) 5 mg PO HS [facility] Last Admin: 12/20/17 21:13 Dose: 5 mg Tamsulosin HCl (Flomax) 0.4 mg PO DAILY [facility] Last Admin: 12/21/17 10:06 Dose: 0.4 mg - Labs Labs: 12/21/17 07:42 12/21/17 07:42 PT 12.2 SECONDS (9.7-12.2) 12/17/17 06:07 INR 1.1 12/17/17 06:07 APTT 30 SECONDS (21-34) D 12/17/17 06:07 - Constitutional Appears: Non-toxic, Chronically Ill - Head Exam Head Exam: NORMOCEPHALIC - Eye Exam Eye Exam: PERRL - ENT Exam ENT Exam: Mucous Membranes Dry - Neck Exam Neck Exam: absent: Lymphadenopathy - Respiratory Exam Respiratory Exam: Decreased Breath Sounds - Cardiovascular Exam Cardiovascular Exam: REGULAR RHYTHM - GI/Abdominal Exam GI & Abdominal Exam: Distended - Rectal Exam Rectal Exam: Deferred - Exam Exam: NORMAL INSPECTION Assessment and Plan (1) CHF exacerbation Status: Acute (2) Cardiac arrest Status: Acute (3) Fever Status: Acute
[2017-12-22] MEDS: Cefepime IV 1 gm in Dextrose 1 GM/50 ML BAG IVPB SCH ×2 (04:24→17:18)
[2017-12-22 06:48] LABS: BASO # 0.1 K/uL (0.0-0.2); BASO % 0.6 % (0.0-2.0); EOS # 0.4 K/uL (0.0-0.7); EOS % 5.1 % (0.0-4.0); LYMPH # 1.1 K/uL (1.0-4.3); LYMPH % 12.8 % (20.0-40.0); MEAN CELL VOLUME 90.2 fL (80.0-94.0); MEAN CORPUSCULAR HEMOGLOBIN 29.3 pg (27.0-31.0); MEAN CORPUSCULAR HGB CONC 32.5 g/dL (33.0-37.0); MONO # 0.9 K/uL (0.0-0.8); MONO % 10.1 % (0.0-10.0); NEUT # 6.1 K/uL (1.8-7.0); NEUT % 71.4 % (50.0-75.0); NRBC % 0.1 % (0.0-2.0); RBC 3.76 Mil/uL (4.40-5.90); RED CELL DISTRIBUTION WIDTH 14.2 % (11.5-14.5); WHITE BLOOD COUNT 8.6 K/uL (4.8-10.8)
[2017-12-22 07:59] LABS: ALB/GLOB RATIO 0.9 (1.0-2.1); ALBUMIN 2.9 g/dL (3.5-5.0); ALT/SGPT 86 U/L (21-72); AST/SGOT 75 U/L (17-59); BLOOD UREA NITROGEN 46 mg/dL (9-20); CALCIUM 8.1 mg/dl (8.6-10.4); GFR NON-AFRICAN AMERICAN > 60
[2017-12-22] MEDS: Pantoprazole 40 mg Susp UD PO SCH (09:14)
[2017-12-22] MEDS: Enoxaparin 40 mg Syringe SC SCH (09:14)
[2017-12-22] MEDS: POLYETHYLENE GLYCOL 3350 17 GM/Dose PACKET NG SCH (10:21)
[2017-12-22] MEDS: Potassium Ch 20mEq in D5W 1,000 ML IV SCH (10:28)
--- NOTE | 2017-12-22 15:09 | CP.PCM.PN ---
Subjective - Date & Time of Evaluation Date of Evaluation: 12/22/17 Time of Evaluation: 15:09 - Subjective Subjective: Patient with CAD, CHF with LV systolic function Resting comfortably. Not much interested in communication. Objective - Vital Signs/Intake and Output Vital Signs (last 24 hours): Temp Pulse Resp BP Pulse Ox 98.5 F 75 18 140/66 96 12/22/17 12:10 12/22/17 12:10 12/22/17 12:10 12/22/17 12:10 12/22/17 12:10 Intake and Output: 12/22/17 12/22/17 06:59 18:59 Intake Total 500 Balance 500 - Medications Medications: Current Medications Acetaminophen (Tylenol 325mg Tab) 650 mg PO Q6 PRN PRN Reason: Pain, Mild (1-3) Last Admin: 12/18/17 04:30 Dose: 650 mg Amiodarone HCl (Cordarone) 200 mg PO DAILY [facility] Last Admin: 12/22/17 09:14 Dose: 200 mg Aspirin (Aspirin Chewable) 81 mg PO DAILY [facility] Last Admin: 12/22/17 09:14 Dose: 81 mg Enoxaparin Sodium (Lovenox) 40 mg SC DAILY [facility] Last Admin: 12/22/17 09:14 Dose: 40 mg Furosemide (Lasix) 40 mg IVP Q12H [facility] Last Admin: 12/17/17 10:28 Dose: Not Given Cefepime HCl (Maxipime Iv 1 Gm Premix) 1 gm in 50 mls @ 100 mls/hr IVPB Q12H [facility] PRN Reason: Protocol Last Admin: 12/22/17 04:24 Dose: 100 mls/hr Potassium Chloride/Dextrose (Potassium Chl 20 Meq In D5w) 1,000 mls @ 63 mls/ hr IV .[id number] [facility] Last Admin: 12/22/17 10:28 Dose: 63 mls/hr Pantoprazole Sodium (Protonix Susp) 40 mg PO DAILY [facility] Last Admin: 12/22/17 09:14 Dose: 40 mg Polyethylene Glycol (Miralax) 17 gm NG DAILY [facility] Last Admin: 12/22/17 10:21 Dose: Not Given Rosuvastatin Calcium (Crestor) 5 mg PO HS [facility] Last Admin: 12/21/17 21:27 Dose: 5 mg Tamsulosin HCl (Flomax) 0.4 mg PO DAILY [facility] Last Admin: 12/22/17 09:14 Dose: 0.4 mg - Labs Labs: 12/22/17 06:33 12/22/17 06:33 PT 12.2 SECONDS (9.7-12.2) 12/17/17 06:07 INR 1.1 12/17/17 06:07 APTT 30 SECONDS (21-34) D 12/17/17 06:07 - Head Exam Head Exam: NORMOCEPHALIC - Neck Exam Neck Exam: Normal Inspection - Respiratory Exam Respiratory Exam: NORMAL BREATHING PATTERN - Cardiovascular Exam Cardiovascular Exam: REGULAR RHYTHM, Murmur Assessment and Plan (1) CHF exacerbation Assessment & Plan: CHF is improving. Fluid restriction with maximize CHF therapy. Status: Acute (2) Cardiac arrest Assessment & Plan: Stable no e new arrhythmias. Status: Acute (3) Chest pain Assessment & Plan: CAD, continue DAPT. Status: Acute
--- NOTE | 2017-12-22 17:21 | CP.PCM.PN ---
Subjective - Date & Time of Evaluation Date of Evaluation: 12/22/17 Time of Evaluation: 15:00 - Subjective Subjective: PGY-1 Medicine Progress note for Dr. Gonzalez Patient was seen and examined today at bedside in no acute distress. Nurse reports a few runs of Vtach overnight where patient was in stable condition. Patient has no new complaints. Denies any news chest pain, shortness of breath, abdominal pain, nausea, vomiting. He is eating well and reporting a healthy appetite, tolerating advanced diet well. He is having no issues voiding and is having regular BM. Nurses state his gait is wobbly. Objective - Vital Signs/Intake and Output Vital Signs (last 24 hours): Temp Pulse Resp BP Pulse Ox 97.0 F L 72 20 123/73 94 L 12/22/17 16:14 12/22/17 16:18 12/22/17 16:14 12/22/17 16:14 12/22/17 16:14 Intake and Output: 12/22/17 12/22/17 06:59 18:59 Intake Total 500 Balance 500 - Medications Medications: Current Medications Acetaminophen (Tylenol 325mg Tab) 650 mg PO Q6 PRN PRN Reason: Pain, Mild (1-3) Last Admin: 12/18/17 04:30 Dose: 650 mg Amiodarone HCl (Cordarone) 200 mg PO DAILY [facility] Last Admin: 12/22/17 09:14 Dose: 200 mg Aspirin (Aspirin Chewable) 81 mg PO DAILY [facility] Last Admin: 12/22/17 09:14 Dose: 81 mg Enoxaparin Sodium (Lovenox) 40 mg SC DAILY [facility] Last Admin: 12/22/17 09:14 Dose: 40 mg Furosemide (Lasix) 40 mg IVP Q12H [facility] Last Admin: 12/17/17 10:28 Dose: Not Given Cefepime HCl (Maxipime Iv 1 Gm Premix) 1 gm in 50 mls @ 100 mls/hr IVPB Q12H [facility] PRN Reason: Protocol Last Admin: 12/22/17 17:18 Dose: 100 mls/hr Potassium Chloride/Dextrose (Potassium Chl 20 Meq In D5w) 1,000 mls @ 63 mls/ hr IV .[id number] [facility] Last Admin: 12/22/17 10:28 Dose: 63 mls/hr Pantoprazole Sodium (Protonix Susp) 40 mg PO DAILY [facility] Last Admin: 12/22/17 09:14 Dose: 40 mg Rosuvastatin Calcium (Crestor) 5 mg PO HS [facility] Last Admin: 12/21/17 21:27 Dose: 5 mg Tamsulosin HCl (Flomax) 0.4 mg PO DAILY [facility] Last Admin: 12/22/17 09:14 Dose: 0.4 mg - Labs Labs: 12/22/17 06:33 12/22/17 06:33 PT 12.2 SECONDS (9.7-12.2) 12/17/17 06:07 INR 1.1 12/17/17 06:07 APTT 30 SECONDS (21-34) D 12/17/17 06:07 - Constitutional Appears: Non-toxic, No Acute Distress - Head Exam Head Exam: ATRAUMATIC, NORMOCEPHALIC - Eye Exam Eye Exam: EOMI - ENT Exam ENT Exam: Mucous Membranes Moist - Respiratory Exam Respiratory Exam: Decreased Breath Sounds, Rales. absent: Wheezes Additional comments: L lower lobe rales 3L NC - Cardiovascular Exam Cardiovascular Exam: +S1. absent: Murmur - GI/Abdominal Exam GI & Abdominal Exam: Soft, Normal Bowel Sounds. absent: Tenderness - Exam Exam: Scrotal Swelling Additional comments: scrotal swelling 2/2 L inguinal hernia no erythema/no discoloration - Extremities Exam Additional comments: peripheral pulses palpable bilaterally (radial, PT) R hand IV - Neurological Exam Neurological Exam: Alert, Awake, Oriented x3 - Psychiatric Exam Psychiatric exam: Normal Affect, Normal Mood - Skin Skin Exam: Normal Color, Warm Assessment and Plan - Assessment and Plan (Free Text) Assessment: 72 yo Macedonian-speaking M with PMH of [place], Afib, PVD, CHF, CAD, ACID placement, presenting with worsening shortness of breath & L inguinal hernia without signs of incarceration or obstruction, s/p extubation 2/2 cardiac arrest during cardiac catherization (12/12/17); ROSC obtained after 6 shocks, 2 rounds of Epi and 1 round of bicarb. Plan: NSTEMI (non-ST elevated myocardial infarction) CHF exacerbation - BNP: Currently: 8140 (On admission 6140 (trended down prior to cardiac arrest on 12/12/17)) - Trops x 3 negative (on admission), recent trops during cardiac arrest elevated in 1.5s - strict I/Os - continue to keep head of bed elevated @ 45 degrees Imaging: - CXR (12/08): Moderate to severe venous congestion. Moderate loculated left and small right pleural effusion. Prominent consolidative opacification in the left mid to lower lung zone and right lung base. Prominent vascularity in the right paratracheal region. Cardiomegaly. Left-sided pacemaker - Echo: LVEF 30%, LV moderately dilated, mild to moderate concentric LVH, mild left ventricular diastolic dysfunction, sytolic function moderaly impared, Moderate pulmomoc valvular regurgitation - f/u Cardio (Dr. Maddox) recs (cardiac clearance for discharge) - Will require cardiac catherization prior to discharge Current management: - hold home med: spironolactone 25 mg PO daily (held 2/ BP) - c/w lasix 40mg IV Q12 - c/w amiodarone 200 PO daily - awaiting cardiac catheterization - D/C to [facility] - PT eval/treat Inguinal Hernia - CT abdomen/pelvis (12/08): L inguinal hernia with no evidence of incarceration or obstruction - Vascular surgery (Dr. Fox) recs - pt will obtain surgery as outpatient - Cardio (Dr. Maddox) recs (cardiac clearance for surgery) - cardiac arrest during cardiac catherization (12/12/17) - ROSC obtained after 6 shocks, 2 rounds of Epi and 1 round of bicarb Atrial Fibrillation Chronic -d/c home medications held s/p cardiac arrest -Digoxin 0.125mg PO daily -ASA 81mg PO daily -coreg 12.5 mg PO daily - started amiodarone 200 mg PO daily - c/w Aspirin 81 mg PO daily - No other anticoagulation 2/2 previous GI bleed HTN Chronic -hold home meds: -coreg 12.5 mg PO daily -lisinopril 5mg PO daily -amiodarone 200 PO daily CAD Chronic -c/w home medications: -Crestor 5 mg PO daily -ASA 81mg PO daily UTI -Urine Cx (12/17): Morg Marganii sensitive to Cefepime -Trachasp Cx (12/17): Klebsiella Oxytoca sensitive to Cefepime -f/u ID (Dr. Keating) recs -Cefepime 1gm IVPB q12 (started 12/19) Hypokalemia -replete with 20meq daily -monitor with AM labs PPx, Diet, Disposition - DVT ppx: Lovenox 40 sc daily - GI: protonix 40 PO daily - Heart Healthy Diet: advanced bite size, thin liquid, 2g Na - PT eval and treat Dispo: will need cardiac cath prior to discharge, possibly Mon. d/c to [facility] after cardiac clearance. d/w Dr. Carlos Michael PGY-1
[2017-12-23] MEDS: Potassium Ch 20mEq in D5W 1,000 ML IV SCH ×2 (01:23→19:13)
[2017-12-23] MEDS: Cefepime IV 1 gm in Dextrose 1 GM/50 ML BAG IVPB SCH ×2 (05:33→16:47)
[2017-12-23 08:13] LABS: BASO # 0.1 K/uL (0.0-0.2); BASO % 0.7 % (0.0-2.0); EOS # 0.4 K/uL (0.0-0.7); HEMOGLOBIN 11.3 g/dL (12.0-18.0); LYMPH # 1.1 K/uL (1.0-4.3); LYMPH % 10.9 % (20.0-40.0); MEAN CELL VOLUME 91.2 fL (80.0-94.0); MEAN CORPUSCULAR HEMOGLOBIN 30.1 pg (27.0-31.0); MONO # 0.9 K/uL (0.0-0.8); MONO % 9.3 % (0.0-10.0); NEUT # 7.5 K/uL (1.8-7.0); NEUT % 75.1 % (50.0-75.0); NRBC % 0.1 % (0.0-2.0); RBC 3.77 Mil/uL (4.40-5.90); RED CELL DISTRIBUTION WIDTH 14.2 % (11.5-14.5)
[2017-12-23 08:24] LABS: ALBUMIN 3.4 g/dL (3.5-5.0); ALT/SGPT 107 U/L (21-72); AST/SGOT 78 U/L (17-59); BLOOD UREA NITROGEN 38 mg/dL (9-20); CALCIUM 8.4 mg/dl (8.6-10.4); GFR NON-AFRICAN AMERICAN > 60
[2017-12-23] MEDS: Pantoprazole 40 mg Susp UD PO SCH (10:23)
[2017-12-23] MEDS: Enoxaparin 40 mg Syringe SC SCH (10:24)
--- NOTE | 2017-12-23 15:10 | CP.PCM.PN ---
Subjective - Date & Time of Evaluation Date of Evaluation: 12/23/17 Time of Evaluation: 14:00 - Subjective Subjective: PGY-1 Medicine Progress note for Dr. Gonzalez Patient was seen and examined today at bedside in no acute distress. Nurse reports no overnight events. Patient has no new complaints. Denies any news chest pain, shortness of breath, abdominal pain, nausea, vomiting. He is eating well and reporting a healthy appetite, tolerating advanced diet well. He is having no issues voiding and is having regular BM. Nurses state his gait is wobbly. Patient states he would like to go home as soon as possible, and is only willing to go to the [facility] that he has been to previously for a short period of time. Objective - Vital Signs/Intake and Output Vital Signs (last 24 hours): Temp Pulse Resp BP Pulse Ox 97.0 F L 81 20 133/87 97 12/23/17 07:15 12/23/17 12:00 12/23/17 07:15 12/23/17 10:23 12/23/17 07:15 Intake and Output: 12/23/17 12/23/17 06:59 18:59 Intake Total 491 Output Total 650 Balance -159 - Medications Medications: Current Medications Acetaminophen (Tylenol 325mg Tab) 650 mg PO Q6 PRN PRN Reason: Pain, Mild (1-3) Last Admin: 12/18/17 04:30 Dose: 650 mg Amiodarone HCl (Cordarone) 200 mg PO DAILY [facility] Last Admin: 12/23/17 10:23 Dose: 200 mg Aspirin (Aspirin Chewable) 81 mg PO DAILY [facility] Last Admin: 12/23/17 10:23 Dose: 81 mg Enoxaparin Sodium (Lovenox) 40 mg SC DAILY [facility] Last Admin: 12/23/17 10:24 Dose: 40 mg Furosemide (Lasix) 40 mg IVP Q12H [facility] Last Admin: 12/23/17 10:23 Dose: 40 mg Cefepime HCl (Maxipime Iv 1 Gm Premix) 1 gm in 50 mls @ 100 mls/hr IVPB Q12H [facility] PRN Reason: Protocol Last Admin: 12/23/17 05:33 Dose: 100 mls/hr Potassium Chloride/Dextrose (Potassium Chl 20 Meq In D5w) 1,000 mls @ 63 mls/ hr IV .[id number] [facility] Last Admin: 12/23/17 01:23 Dose: 63 mls/hr Pantoprazole Sodium (Protonix Susp) 40 mg PO DAILY [facility] Last Admin: 12/23/17 10:23 Dose: 40 mg Rosuvastatin Calcium (Crestor) 5 mg PO HS [facility] Last Admin: 12/22/17 22:07 Dose: 5 mg Tamsulosin HCl (Flomax) 0.4 mg PO DAILY [facility] Last Admin: 12/23/17 10:23 Dose: 0.4 mg - Labs Labs: 12/23/17 07:46 12/23/17 07:46 PT 12.2 SECONDS (9.7-12.2) 12/17/17 06:07 INR 1.1 12/17/17 06:07 APTT 30 SECONDS (21-34) D 12/17/17 06:07 - Constitutional Appears: Non-toxic, No Acute Distress - Head Exam Head Exam: ATRAUMATIC, NORMOCEPHALIC - Eye Exam Eye Exam: EOMI - ENT Exam ENT Exam: Mucous Membranes Moist - Respiratory Exam Respiratory Exam: Decreased Breath Sounds, Rales. absent: Rhonchi, Wheezes Additional comments: 3L NC L lower lube rales - Cardiovascular Exam Cardiovascular Exam: +S1, +S2. absent: Murmur - GI/Abdominal Exam GI & Abdominal Exam: Soft, Normal Bowel Sounds. absent: Rigid, Tenderness - Exam Exam: Scrotal Swelling Additional comments: scrotal swelling 2/2 L inguinal hernia no erythema/no discoloration - Extremities Exam Additional comments: peripheral pulses palpable bilaterally (radial, PT) R hand IV - Neurological Exam Neurological Exam: Alert, Awake, Oriented x3 - Psychiatric Exam Psychiatric exam: Normal Affect, Normal Mood - Skin Skin Exam: Normal Color, Warm Assessment and Plan - Assessment and Plan (Free Text) Assessment: 72 yo Pashto-speaking M with PMH of GA, Afib, PVD, CHF, CAD, ACID placement, presenting with worsening shortness of breath & L inguinal hernia without signs of incarceration or obstruction, s/p extubation 2/2 cardiac arrest during cardiac catherization (12/12/17); ROSC obtained after 6 shocks, 2 rounds of Epi and 1 round of bicarb. Plan: NSTEMI (non-ST elevated myocardial infarction) CHF exacerbation - BNP: downtrended and stable s/p cath - Trops x 3 negative (on admission), recent trops during cardiac arrest elevated in 1.5s - strict I/Os - continue to keep head of bed elevated @ 45 degrees Imaging: - CXR (12/08): Moderate to severe venous congestion. Moderate loculated left and small right pleural effusion. Prominent consolidative opacification in the left mid to lower lung zone and right lung base. Prominent vascularity in the right paratracheal region. Cardiomegaly. Left-sided pacemaker - Echo: LVEF 30%, LV moderately dilated, mild to moderate concentric LVH, mild left ventricular diastolic dysfunction, sytolic function moderaly impared, Moderate pulmomoc valvular regurgitation - f/u Cardio (Dr. Maddox) recs (cardiac clearance for discharge) - Will require cardiac catherization prior to discharge Current management: - hold home med: spironolactone 25 mg PO daily (held 2/2 BP) - c/w lasix 40mg IV Q12 - c/w amiodarone 200 PO daily - awaiting cardiac catheterization - D/C to [facility] - PT eval/treat Inguinal Hernia - CT abdomen/pelvis (12/08): L inguinal hernia with no evidence of incarceration or obstruction - Vascular surgery (Dr. Fox) recs - pt will obtain surgery as outpatient - Cardio (Dr. Maddox) recs (cardiac clearance for surgery) - cardiac arrest during cardiac catherization (12/12/17) - ROSC obtained after 6 shocks, 2 rounds of Epi and 1 round of bicarb Atrial Fibrillation Chronic -d/c home medications held s/p cardiac arrest -Digoxin 0.125mg PO daily -ASA 81mg PO daily -coreg 12.5 mg PO daily - started amiodarone 200 mg PO daily - c/w Aspirin 81 mg PO daily - No other anticoagulation 2/2 previous GI bleed HTN Chronic -hold home meds: -coreg 12.5 mg PO daily -lisinopril 5mg PO daily -amiodarone 200 PO daily CAD Chronic -c/w home medications: -Crestor 5 mg PO daily -ASA 81mg PO daily UTI -Urine Cx (12/17): Morg Tremainei sensitive to Cefepime -Trachasp Cx (12/17): Klebsiella Oxytoca sensitive to Cefepime -f/u ID (Dr. Keating) recs -Cefepime 1gm IVPB q12 (started 12/19) Hypokalemia -replete with 20meq daily -monitor with AM labs PPx, Diet, Disposition - DVT ppx: Lovenox 40 sc daily - GI: protonix 40 PO daily - Heart Healthy Diet: advanced bite size, thin liquid, 2g Na - PT eval and treat Dispo: will need cardiac cath prior to discharge, possibly Mon. d/c to [facility] after cardiac clearance for cardiac rehab before home. d/w Dr. Carlos Michael PGY-1
--- NOTE | 2017-12-23 15:47 | CP.PCM.PN ---
Subjective - Date & Time of Evaluation Date of Evaluation: 12/23/17 Time of Evaluation: 15:47 - Subjective Subjective: sleeping and resting, no new complaints. Objective - Vital Signs/Intake and Output Vital Signs (last 24 hours): Temp Pulse Resp BP Pulse Ox 97.0 F L 81 20 133/87 97 12/23/17 07:15 12/23/17 12:00 12/23/17 07:15 12/23/17 10:23 12/23/17 07:15 Intake and Output: 12/23/17 12/23/17 06:59 18:59 Intake Total 491 Output Total 650 Balance -159 - Medications Medications: Current Medications Acetaminophen (Tylenol 325mg Tab) 650 mg PO Q6 PRN PRN Reason: Pain, Mild (1-3) Last Admin: 12/18/17 04:30 Dose: 650 mg Amiodarone HCl (Cordarone) 200 mg PO DAILY [facility] Last Admin: 12/23/17 10:23 Dose: 200 mg Aspirin (Aspirin Chewable) 81 mg PO DAILY [facility] Last Admin: 12/23/17 10:23 Dose: 81 mg Enoxaparin Sodium (Lovenox) 40 mg SC DAILY [facility] Last Admin: 12/23/17 10:24 Dose: 40 mg Furosemide (Lasix) 40 mg IVP Q12H [facility] Last Admin: 12/23/17 10:23 Dose: 40 mg Cefepime HCl (Maxipime Iv 1 Gm Premix) 1 gm in 50 mls @ 100 mls/hr IVPB Q12H [facility] PRN Reason: Protocol Last Admin: 12/23/17 05:33 Dose: 100 mls/hr Potassium Chloride/Dextrose (Potassium Chl 20 Meq In D5w) 1,000 mls @ 63 mls/ hr IV .[id number] [facility] Last Admin: 12/23/17 01:23 Dose: 63 mls/hr Pantoprazole Sodium (Protonix Susp) 40 mg PO DAILY [facility] Last Admin: 12/23/17 10:23 Dose: 40 mg Rosuvastatin Calcium (Crestor) 5 mg PO HS [facility] Last Admin: 12/22/17 22:07 Dose: 5 mg Tamsulosin HCl (Flomax) 0.4 mg PO DAILY [facility] Last Admin: 12/23/17 10:23 Dose: 0.4 mg - Labs Labs: 12/23/17 07:46 12/23/17 07:46 PT 12.2 SECONDS (9.7-12.2) 12/17/17 06:07 INR 1.1 12/17/17 06:07 APTT 30 SECONDS (21-34) D 12/17/17 06:07 - Head Exam Head Exam: NORMOCEPHALIC - Neck Exam Neck Exam: Normal Inspection - Respiratory Exam Respiratory Exam: NORMAL BREATHING PATTERN - Cardiovascular Exam Cardiovascular Exam: REGULAR RHYTHM Assessment and Plan (1) CHF exacerbation Assessment & Plan: Improved.continue current care. Status: Acute (2) Cardiac arrest Status: Acute (3) Chest pain Assessment & Plan: Positive troponin. Will discuss with patient about possible cardiac cath when patient is more cooperative. Status: Acute
--- NOTE | 2017-12-23 17:03 | CP.PCM.PN ---
Subjective - Date & Time of Evaluation Date of Evaluation: 12/23/17 Time of Evaluation: 07:00 - Subjective Subjective: afeb on rounds resting denies fever Objective - Vital Signs/Intake and Output Vital Signs (last 24 hours): Temp Pulse Resp BP Pulse Ox 97.0 F L 72 20 133/87 97 12/23/17 07:15 12/23/17 15:57 12/23/17 07:15 12/23/17 10:23 12/23/17 07:15 Intake and Output: 12/23/17 12/23/17 06:59 18:59 Intake Total 491 Output Total 650 Balance -159 - Medications Medications: Current Medications Acetaminophen (Tylenol 325mg Tab) 650 mg PO Q6 PRN PRN Reason: Pain, Mild (1-3) Last Admin: 12/18/17 04:30 Dose: 650 mg Amiodarone HCl (Cordarone) 200 mg PO DAILY [facility] Last Admin: 12/23/17 10:23 Dose: 200 mg Aspirin (Aspirin Chewable) 81 mg PO DAILY [facility] Last Admin: 12/23/17 10:23 Dose: 81 mg Enoxaparin Sodium (Lovenox) 40 mg SC DAILY [facility] Last Admin: 12/23/17 10:24 Dose: 40 mg Furosemide (Lasix) 40 mg IVP Q12H [facility] Last Admin: 12/23/17 10:23 Dose: 40 mg Cefepime HCl (Maxipime Iv 1 Gm Premix) 1 gm in 50 mls @ 100 mls/hr IVPB Q12H [facility] PRN Reason: Protocol Last Admin: 12/23/17 16:47 Dose: 100 mls/hr Potassium Chloride/Dextrose (Potassium Chl 20 Meq In D5w) 1,000 mls @ 63 mls/ hr IV .[id number] [facility] Last Admin: 12/23/17 01:23 Dose: 63 mls/hr Pantoprazole Sodium (Protonix Susp) 40 mg PO DAILY [facility] Last Admin: 12/23/17 10:23 Dose: 40 mg Rosuvastatin Calcium (Crestor) 5 mg PO HS [facility] Last Admin: 12/22/17 22:07 Dose: 5 mg Tamsulosin HCl (Flomax) 0.4 mg PO DAILY [facility] Last Admin: 12/23/17 10:23 Dose: 0.4 mg - Labs Labs: 12/23/17 07:46 12/23/17 07:46 PT 12.2 SECONDS (9.7-12.2) 12/17/17 06:07 INR 1.1 12/17/17 06:07 APTT 30 SECONDS (21-34) D 12/17/17 06:07 - Constitutional Appears: Non-toxic, Chronically Ill - Head Exam Head Exam: NORMOCEPHALIC - Eye Exam Eye Exam: PERRL - ENT Exam ENT Exam: Mucous Membranes Dry - Neck Exam Neck Exam: absent: Lymphadenopathy - Respiratory Exam Respiratory Exam: Decreased Breath Sounds - Cardiovascular Exam Cardiovascular Exam: REGULAR RHYTHM - GI/Abdominal Exam GI & Abdominal Exam: Soft Assessment and Plan (1) CHF exacerbation Status: Acute (2) Cardiac arrest Status: Acute (3) Fever Status: Acute - Assessment and Plan (Free Text) Assessment: cont iv rx for 7 days then observe
[2017-12-24] MEDS: Cefepime IV 1 gm in Dextrose 1 GM/50 ML BAG IVPB SCH ×2 (05:30→17:09)
[2017-12-24 08:31] LABS: BASO # 0.1 K/uL (0.0-0.2); BASO % 0.7 % (0.0-2.0); EOS # 0.5 K/uL (0.0-0.7); EOS % 3.8 % (0.0-4.0); LYMPH # 1.3 K/uL (1.0-4.3); LYMPH % 9.4 % (20.0-40.0); MEAN CELL VOLUME 90.9 fL (80.0-94.0); MEAN CORPUSCULAR HEMOGLOBIN 29.9 pg (27.0-31.0); MEAN CORPUSCULAR HGB CONC 32.9 g/dL (33.0-37.0); MEAN PLATELET VOLUME 9.5 fL (7.2-11.7); MONO # 1.2 K/uL (0.0-0.8); MONO % 8.6 % (0.0-10.0); NEUT % 77.5 % (50.0-75.0); PLATELET COUNT 288 K/uL (130-400); RBC 3.69 Mil/uL (4.40-5.90); RED CELL DISTRIBUTION WIDTH 14.2 % (11.5-14.5); WHITE BLOOD COUNT 14.1 K/uL (4.8-10.8)
[2017-12-24 09:12] LABS: ALB/GLOB RATIO 0.9 (1.0-2.1); ALBUMIN 3.2 g/dL (3.5-5.0); ALT/SGPT 94 U/L (21-72); AST/SGOT 56 U/L (17-59); BLOOD UREA NITROGEN 41 mg/dL (9-20); CALCIUM 8.4 mg/dl (8.6-10.4); GFR NON-AFRICAN AMERICAN 60
[2017-12-24 10:15] LABS: EOSINOPHIL 5 % (0-4); LYMPHOCYTE 12 % (20-40); MONOCYTE 6 % (0-10); NEUTROPHIL 77 % (50-75); TOTAL CELLS COUNTED 100
[2017-12-24 10:16] LABS: ANISOCYTOSIS SLIGHT; HYPOCHROMIC SLIGHT; LARGE PLATELETS PRESENT; PLATELET ESTIMATE NORMAL (NORMAL); POIKILOCYTOSIS SLIGHT
[2017-12-24] MEDS: Enoxaparin 40 mg Syringe SC SCH (10:17)
[2017-12-24] MEDS: Potassium Ch 20mEq in D5W 1,000 ML IV SCH (10:18)
--- NOTE | 2017-12-24 10:49 | CP.PCM.PN ---
Subjective - Date & Time of Evaluation Date of Evaluation: 12/24/17 Time of Evaluation: 10:49 - Subjective Subjective: Tee Simmons DO PGY-1, Medicine progress note for Dr. Gonzalez Pt was seen and examined at bedside. No acute events overnight. Pt is complaining of left sided chest wall pain, with was alleviated by Tylenol. The pain does not radiate and is not associated with shortness of breath. Pt is asking for a cane because he wants to walk around and feels unstable. Pt also reports difficulty sleeping over the weekend. Pt denies headache, fever, chills , sob, abdominal pain, n/v/d, paresthesias. A 12-point ROS was reviewed and is otherwise unremarkable. Objective - Vital Signs/Intake and Output Vital Signs (last 24 hours): Temp Pulse Resp BP Pulse Ox 97.5 F L 75 20 134/87 95 12/24/17 07:00 12/24/17 07:00 12/24/17 07:00 12/24/17 10:17 12/24/17 07:00 Intake and Output: 12/24/17 12/24/17 06:59 18:59 Intake Total 691 Output Total 1700 Balance -1009 - Medications Medications: Current Medications Acetaminophen (Tylenol 325mg Tab) 650 mg PO Q6 PRN PRN Reason: Pain, Mild (1-3) Last Admin: 12/24/17 08:49 Dose: 650 mg Amiodarone HCl (Cordarone) 200 mg PO DAILY [facility] Last Admin: 12/24/17 10:17 Dose: 200 mg Aspirin (Aspirin Chewable) 81 mg PO DAILY [facility] Last Admin: 12/24/17 10:17 Dose: 81 mg Enoxaparin Sodium (Lovenox) 40 mg SC DAILY [facility] Last Admin: 12/24/17 10:17 Dose: 40 mg Furosemide (Lasix) 40 mg IVP Q12H [facility] Last Admin: 12/24/17 10:17 Dose: 40 mg Cefepime HCl (Maxipime Iv 1 Gm Premix) 1 gm in 50 mls @ 100 mls/hr IVPB Q12H [facility] PRN Reason: Protocol Last Admin: 12/24/17 05:30 Dose: 100 mls/hr Potassium Chloride/Dextrose (Potassium Chl 20 Meq In D5w) 1,000 mls @ 63 mls/ hr IV .[id number] [facility] Last Admin: 12/24/17 10:18 Dose: Not Given Pantoprazole Sodium (Protonix Ec Tab) 40 mg PO DAILY [facility] Rosuvastatin Calcium (Crestor) 5 mg PO HS [facility] Last Admin: 12/23/17 22:23 Dose: 5 mg Tamsulosin HCl (Flomax) 0.4 mg PO DAILY [facility] Last Admin: 12/24/17 10:17 Dose: 0.4 mg - Labs Labs: 12/24/17 08:16 12/24/17 08:16 PT 12.2 SECONDS (9.7-12.2) 12/17/17 06:07 INR 1.1 12/17/17 06:07 APTT 30 SECONDS (21-34) D 12/17/17 06:07 - Constitutional Appears: Non-toxic, No Acute Distress - Head Exam Head Exam: ATRAUMATIC, NORMAL INSPECTION - Eye Exam Eye Exam: EOMI, PERRL - ENT Exam ENT Exam: Mucous Membranes Moist - Neck Exam Neck Exam: Normal Inspection - Respiratory Exam Respiratory Exam: Decreased Breath Sounds, Rales (scattered), NORMAL BREATHING PATTERN. absent: Rhonchi, Wheezes, Respiratory Distress Additional comments: (+) reporoducible left upper chest wall tenderness - Cardiovascular Exam Cardiovascular Exam: REGULAR RHYTHM, +S1, +S2 - GI/Abdominal Exam GI & Abdominal Exam: Soft, Normal Bowel Sounds. absent: Tenderness - Exam Exam: Scrotal Swelling (scrotal swelling secondary to left sided inguinal hernia, no erythema or discoloration) - Extremities Exam Extremities Exam: Normal Capillary Refill, Pedal Edema (2+ pitting edema to the mid siddiqi, bilaterally). absent: Calf Tenderness, Tenderness - Back Exam Back Exam: NORMAL INSPECTION - Neurological Exam Neurological Exam: Alert, Oriented x3 - Psychiatric Exam Psychiatric exam: Normal Affect, Normal Mood - Skin Skin Exam: Dry, Normal Color, Warm Assessment and Plan - Assessment and Plan (Free Text) Assessment: 72 yo Romanian-speaking M with PMH of [place], Afib, PVD, CHF, CAD, ACID placement, presenting with worsening shortness of breath & L inguinal hernia without signs of incarceration or obstruction, s/p extubation 2/2 cardiac arrest during cardiac catherization (12/12/17); ROSC obtained after 6 shocks, 2 rounds of Epi and 1 round of bicarb. Plan: NSTEMI (non-ST elevated myocardial infarction) CHF exacerbation - BNP: downtrended and stable s/p cath - Trops x 3 negative (on admission), recent trops during cardiac arrest elevated in 1.5s - strict I/Os - continue to keep head of bed elevated @ 45 degrees Imaging: - CXR (12/08): Moderate to severe venous congestion. Moderate loculated left and small right pleural effusion. Prominent consolidative opacification in the left mid to lower lung zone and right lung base. Prominent vascularity in the right paratracheal region. Cardiomegaly. Left-sided pacemaker - Echo: LVEF 30%, LV moderately dilated, mild to moderate concentric LVH, mild left ventricular diastolic dysfunction, systolic function moderately impaired, Moderate pulmonic valvular regurgitation - f/u Cardio (Dr. case covering for Dr. Maddox) recs (cardiac clearance for discharge) - Pt is refusing cardiac catheterization at this time, medical optimization recommended Current management: - hold home med: spironolactone 25 mg PO daily (held 05/04 BP) - c/w lasix 40mg IV Q12 - c/w amiodarone 200 PO daily - awaiting cardiac catheterization - D/C to [facility] - PT eval/treat Inguinal Hernia - CT abdomen/pelvis (12/08): L inguinal hernia with no evidence of incarceration or obstruction - Vascular surgery (Dr. Fox) recs - pt will obtain surgery as outpatient - Cardio (Dr. Maddox) recs (cardiac clearance for surgery) - Pt is refusing cardiac catheterization at this time, medical optimization recommended Hx of Atrial Fibrillation - Pt is hemodynamically stable - d/c home medications held s/p cardiac arrest - Digoxin 0.125mg PO daily - ASA 81mg PO daily - coreg 12.5 mg PO daily - continue with amiodarone 200 mg PO daily - c/w Aspirin 81 mg PO daily - No other anticoagulation at this time due to previous GI bleed Hx of HTN - hold home meds: - coreg 12.5 mg PO daily - lisinopril 5mg PO daily - amiodarone 200 PO daily Hx of CAD - c/w home medications: - Crestor 5 mg PO daily - ASA 81mg PO daily UTI, (leukocytosis on 12/24) - WBC is 14.1, without bands - pt is afebrile, not tachycardic - f/u UA, Urine c/s - Urine Cx (12/17): Morg Marganii sensitive to Cefepime. - Trachasp Cx (12/17): Klebsiella Oxytoca sensitive to Cefepime - f/u ID (Dr. Keating) recs - Continue with Cefepime 1gm IVPB q12 (started 12/19) - will trend with AM labs Hypokalemia - resolved - potassium 20 mEq in Dextrose has been discontinued - monitor with AM labs PPX, Diet, Disposition - DVT ppx: Lovenox 40 sc daily - GI: protonix 40 PO daily - Heart Healthy Diet: advanced bite size, thin liquid, 2g Na - PT eval and treat Dispo: Plan to discharge to [facility] after cardiac clearance for cardiac rehab before home. All medical management as per Dr. Carlos Simmons PGY-1
[2017-12-24] MEDS: Pantoprazole 40 mg EC Tab PO SCH (10:56)
--- NOTE | 2017-12-24 15:17 | CP.PCM.PN ---
Subjective - Date & Time of Evaluation Date of Evaluation: 12/24/17 Time of Evaluation: 15:14 - Subjective Subjective: Sitting in chair with supplemental O2. Complains of pain and SOB. Objective - Vital Signs/Intake and Output Vital Signs (last 24 hours): Temp Pulse Resp BP Pulse Ox 97.5 F L 79 20 134/87 95 12/24/17 07:00 12/24/17 08:00 12/24/17 07:00 12/24/17 10:17 12/24/17 07:00 Intake and Output: 12/24/17 12/24/17 06:59 18:59 Intake Total 691 147 Output Total 1700 1000 Balance -1009 -303 - Medications Medications: Current Medications Acetaminophen (Tylenol 325mg Tab) 650 mg PO Q6 PRN PRN Reason: Pain, Mild (1-3) Last Admin: 12/24/17 08:49 Dose: 650 mg Amiodarone HCl (Cordarone) 200 mg PO DAILY [facility] Last Admin: 12/24/17 10:17 Dose: 200 mg Aspirin (Aspirin Chewable) 81 mg PO DAILY [facility] Last Admin: 12/24/17 10:17 Dose: 81 mg Enoxaparin Sodium (Lovenox) 40 mg SC DAILY [facility] Last Admin: 12/24/17 10:17 Dose: 40 mg Furosemide (Lasix) 40 mg IVP Q12H [facility] Last Admin: 12/24/17 10:17 Dose: 40 mg Cefepime HCl (Maxipime Iv 1 Gm Premix) 1 gm in 50 mls @ 100 mls/hr IVPB Q12H [facility] PRN Reason: Protocol Last Admin: 12/24/17 05:30 Dose: 100 mls/hr Pantoprazole Sodium (Protonix Ec Tab) 40 mg PO DAILY [facility] Last Admin: 12/24/17 10:56 Dose: 40 mg Rosuvastatin Calcium (Crestor) 5 mg PO HS [facility] Last Admin: 12/23/17 22:23 Dose: 5 mg Tamsulosin HCl (Flomax) 0.4 mg PO DAILY [facility] Last Admin: 12/24/17 10:17 Dose: 0.4 mg Temazepam (Restoril) 30 mg PO HS PRN PRN Reason: Insomnia - Labs Labs: 12/24/17 08:16 12/24/17 08:16 PT 12.2 SECONDS (9.7-12.2) 12/17/17 06:07 INR 1.1 12/17/17 06:07 APTT 30 SECONDS (21-34) D 12/17/17 06:07 - Head Exam Head Exam: NORMOCEPHALIC - Neck Exam Neck Exam: Normal Inspection - Respiratory Exam Additional comments: Crackles at the bases. Assessment and Plan (1) CHF exacerbation Assessment & Plan: Continue diuresis with fluid restriction. Status: Acute (2) Cardiac arrest Status: Acute (3) Chest pain Assessment & Plan: Cardiac vs pneumonia? Discussed with patient about cardiac catheterization he has refused. Given current situation our recommendation is to meximize medical management. Risk factor modification. Status: Acute
[2017-12-24 22:28] LABS: SQUAMOUS EPITHIAL < 1 /hpf (0-5); URINE BACTERIA OCC (<OCC); URINE BILIRUBIN NEGATIVE (NEGATIVE); URINE BLOOD NEGATIVE (NEGATIVE); URINE CLARITY Clear (Clear); URINE COLOR Straw (YELLOW); URINE GLUCOSE (UA) NORMAL (Normal); URINE LEUKOCYTE ESTERASE TRACE Leu/uL (Negative); URINE PROTEIN NEGATIVE (NEGATIVE); URINE UROBILINOGEN NORMAL mg/dL (0.2-1.0)
[2017-12-25] MEDS ORDERED: Albuterol-Ipratrop 3 mg / 0.5 (3 ml) UD INH ONE (06:45)
[2017-12-25] MEDS: Cefepime IV 1 gm in Dextrose 1 GM/50 ML BAG IVPB SCH ×2 (07:32→17:36)
[2017-12-25 08:09] LABS: BASO # 0.1 K/uL (0.0-0.2); BASO % 0.6 % (0.0-2.0); EOS # 0.5 K/uL (0.0-0.7); EOS % 3.7 % (0.0-4.0); HEMOGLOBIN 10.9 g/dL (12.0-18.0); LYMPH # 1.2 K/uL (1.0-4.3); LYMPH % 9.2 % (20.0-40.0); MEAN CORPUSCULAR HEMOGLOBIN 29.8 pg (27.0-31.0); MEAN CORPUSCULAR HGB CONC 32.8 g/dL (33.0-37.0); MEAN PLATELET VOLUME 9.5 fL (7.2-11.7); MONO # 1.1 K/uL (0.0-0.8); MONO % 8.4 % (0.0-10.0); NEUT # 10.1 K/uL (1.8-7.0); NEUT % 78.1 % (50.0-75.0); NRBC % 0.1 % (0.0-2.0); PLATELET COUNT 333 K/uL (130-400); RBC 3.66 Mil/uL (4.40-5.90); RED CELL DISTRIBUTION WIDTH 14.4 % (11.5-14.5)
[2017-12-25 08:59] LABS: ALBUMIN 3.4 g/dL (3.5-5.0); ALT/SGPT 92 U/L (21-72); AST/SGOT 52 U/L (17-59); BLOOD UREA NITROGEN 39 mg/dL (9-20); CALCIUM 8.9 mg/dl (8.6-10.4); GFR NON-AFRICAN AMERICAN 54
[2017-12-25 10:14] LABS: ANISOCYTOSIS SLIGHT; EOSINOPHIL 4 % (0-4); HYPOCHROMIC SLIGHT; LYMPHOCYTE 10 % (20-40); MONOCYTE 6 % (0-10); NEUTROPHIL 80 % (50-75); PLATELET ESTIMATE NORMAL (NORMAL); POIKILOCYTOSIS SLIGHT; TARGET CELLS SLIGHT; TOTAL CELLS COUNTED 100
[2017-12-25] MEDS: Pantoprazole 40 mg EC Tab PO SCH (10:16)
[2017-12-25] MEDS: Enoxaparin 40 mg Syringe SC SCH (10:16)
--- NOTE | 2017-12-25 15:30 | CP.PCM.PN ---
Subjective - Date & Time of Evaluation Date of Evaluation: 12/25/17 Time of Evaluation: 15:30 - Subjective Subjective: Tee Simmons DO PGY-1, Medicine progress note for Dr. Gonzalez Pt was seen and examined at bedside. Pt developed some SOB overnight which was relieved by one duoneb treatment. Pt is complaining of continued left sided chest wall pain, reproducible, nonradiating. Pt denies headache, dizzizness, fever, chills, current sob, abdominal pain, n/v/d, paresthesias. A 12-point ROS was reviewed and is otherwise unremarkable. Objective - Vital Signs/Intake and Output Vital Signs (last 24 hours): Temp Pulse Resp BP Pulse Ox 97.5 F L 76 18 114/72 96 12/25/17 07:00 12/25/17 10:19 12/25/17 07:00 12/25/17 10:25 12/25/17 07:00 Intake and Output: 12/25/17 12/25/17 06:59 18:59 Intake Total 420 550 Output Total 950 1350 Balance -530 -800 - Medications Medications: Current Medications Acetaminophen (Tylenol 325mg Tab) 650 mg PO Q6 PRN PRN Reason: Pain, Mild (1-3) Last Admin: 12/24/17 08:49 Dose: 650 mg Amiodarone HCl (Cordarone) 200 mg PO DAILY [facility] Last Admin: 12/25/17 10:15 Dose: 200 mg Aspirin (Aspirin Chewable) 81 mg PO DAILY [facility] Last Admin: 12/25/17 10:15 Dose: 81 mg Enoxaparin Sodium (Lovenox) 40 mg SC DAILY [facility] Last Admin: 12/25/17 10:16 Dose: 40 mg Furosemide (Lasix) 40 mg IVP Q12H [facility] Last Admin: 12/25/17 10:25 Dose: 40 mg Cefepime HCl (Maxipime Iv 1 Gm Premix) 1 gm in 50 mls @ 100 mls/hr IVPB Q12H [facility]; Protocol Last Admin: 12/25/17 07:32 Dose: 100 mls/hr Ceftriaxone Sodium 1 gm/ (Sodium Chloride) 100 mls @ 100 mls/hr IVPB Q24H [facility]; Protocol Pantoprazole Sodium (Protonix Ec Tab) 40 mg PO DAILY [facility] Last Admin: 12/25/17 10:16 Dose: 40 mg Rosuvastatin Calcium (Crestor) 5 mg PO HS [facility] Last Admin: 12/24/17 21:15 Dose: 5 mg Tamsulosin HCl (Flomax) 0.4 mg PO DAILY [facility] Last Admin: 12/25/17 10:16 Dose: 0.4 mg Temazepam (Restoril) 30 mg PO HS PRN PRN Reason: Insomnia Last Admin: 12/24/17 22:10 Dose: 30 mg - Labs Labs: 12/25/17 08:00 12/25/17 08:00 PT 12.2 SECONDS (9.7-12.2) 12/17/17 06:07 INR 1.1 12/17/17 06:07 APTT 30 SECONDS (21-34) D 12/17/17 06:07 - Constitutional Appears: Non-toxic, No Acute Distress - Head Exam Head Exam: ATRAUMATIC, NORMAL INSPECTION - Eye Exam Eye Exam: EOMI, Normal appearance - ENT Exam ENT Exam: Mucous Membranes Moist - Neck Exam Neck Exam: Normal Inspection - Respiratory Exam Respiratory Exam: Rales (at the bases, bilaterally), NORMAL BREATHING PATTERN. absent: Rhonchi, Wheezes, Respiratory Distress Additional comments: (+) reprocible mild left upper chest wall tenderness; (-) erythema, (-) hematoma, (-) crepitus, (-) bony deformity - Cardiovascular Exam Cardiovascular Exam: REGULAR RHYTHM, +S1, +S2 - GI/Abdominal Exam GI & Abdominal Exam: Soft, Normal Bowel Sounds. absent: Tenderness - Extremities Exam Extremities Exam: Pedal Edema (2+ pitting edema to the shins bilaterally). absent: Calf Tenderness, Tenderness - Back Exam Back Exam: NORMAL INSPECTION - Neurological Exam Neurological Exam: Alert, Awake, Oriented x3 - Psychiatric Exam Psychiatric exam: Normal Affect, Normal Mood - Skin Skin Exam: Dry, Normal Color, Warm Assessment and Plan - Assessment and Plan (Free Text) Assessment: 72 yo Nauruan-speaking M with PMH of [place], Afib, PVD, CHF, CAD, ACID placement, presenting with worsening shortness of breath & L inguinal hernia without signs of incarceration or obstruction, s/p extubation 2/2 cardiac arrest during c ardiac catherization (12/12/17); ROSC obtained after 6 shocks, 2 rounds of Epi and 1 round of bicarb. Plan: NSTEMI (non-ST elevated myocardial infarction) CHF exacerbation - BNP: downtrended and stable s/p cath - Trops x 3 negative (on admission), recent trops during cardiac arrest elevated; downtrended to 1.5 - continue to keep head of bed elevated @ 45 degrees Imaging: - CXR (12/08): Moderate to severe venous congestion. Moderate loculated left and small right pleural effusion. Prominent consolidative opacification in the left mid to lower lung zone and right lung base. Prominent vascularity in the right paratracheal region. Cardiomegaly. Left-sided pacemaker - Echo: LVEF 30%, LV moderately dilated, mild to moderate concentric LVH, mild left ventricular diastolic dysfunction, systolic function moderately impaired, Moderate pulmonic valvular regurgitation - f/u Cardio (Dr. Pagan covering for Dr. Maddox) recs (cardiac clearance for d ischarge) - Pt is refusing cardiac catheterization at this time, medical optimization recommended - Dr. Maddox will re-evaluate the pt for potential cardiac catheterization Current management: - hold home med: spironolactone 25 mg PO daily (held 05/04 BP) - c/w lasix 40mg IV Q12 - c/w amiodarone 200 PO daily - awaiting cardiac catheterization - D/C to [facility] - PT eval/treat Inguinal Hernia - CT abdomen/pelvis (12/08): L inguinal hernia with no evidence of incarceration or obstruction - Vascular surgery (Dr. Fox) recs - pt will obtain surgery as outpatient - Cardio (Dr. Maddox) recs (cardiac clearance for surgery) - Pt is refusing cardiac catheterization at this time, medical optimization recommended Hx of Atrial Fibrillation - Pt is hemodynamically stable - d/c home medications held s/p cardiac arrest - Digoxin 0.125mg PO daily - ASA 81mg PO daily - coreg 12.5 mg PO daily - continue with amiodarone 200 mg PO daily - c/w Aspirin 81 mg PO daily - No therapeutic anticoagulation at this time due to previous GI bleed Hx of HTN - hold home meds: - coreg 12.5 mg PO daily - lisinopril 5mg PO daily - amiodarone 200 PO daily Hx of CAD - c/w home medications: - Crestor 5 mg PO daily - ASA 81mg PO daily UTI, (leukocytosis on 12/24) - leukocystosis is downtrending - UTI on UA (12/25) - will start Rocephin 1g IVPB daily - pt remains remains afebrile, not tachycardic - Urine Cx (12/17): Morg Marganii sensitive to Cefepime. - Trachasp Cx (12/17): Klebsiella Oxytoca sensitive to Cefepime - f/u ID (Dr. Keating) recs - Continue with Cefepime 1gm IVPB q12 (started 12/19) - will trend with AM labs Hypokalemia - resolved - potassium 20 mEq in Dextrose has been discontinued - monitor with AM labs PPX, Diet, Disposition - DVT ppx: Lovenox 40 sc daily - GI: protonix 40 PO daily - Heart Healthy Diet: advanced bite size, thin liquid, 2g Na - PT eval and treat Dispo: Plan to discharge to [facility] after cardiac clearance for cardiac rehab before going home. All medical management as per Dr. Carlos Simmons PGY-1
--- NOTE | 2017-12-25 16:34 | CP.PCM.PN ---
Subjective - Date & Time of Evaluation Date of Evaluation: 12/25/17 Time of Evaluation: 16:31 - Subjective Subjective: Feeling better than yesterday. Lying in bed without any pain or SOB. Objective - Vital Signs/Intake and Output Vital Signs (last 24 hours): Temp Pulse Resp BP Pulse Ox 97.5 F L 76 18 114/72 96 12/25/17 07:00 12/25/17 10:19 12/25/17 07:00 12/25/17 10:25 12/25/17 07:00 Intake and Output: 12/25/17 12/25/17 06:59 18:59 Intake Total 420 550 Output Total 950 1350 Balance -530 -800 - Medications Medications: Current Medications Acetaminophen (Tylenol 325mg Tab) 650 mg PO Q6 PRN PRN Reason: Pain, Mild (1-3) Last Admin: 12/24/17 08:49 Dose: 650 mg Amiodarone HCl (Cordarone) 200 mg PO DAILY [facility] Last Admin: 12/25/17 10:15 Dose: 200 mg Aspirin (Aspirin Chewable) 81 mg PO DAILY [facility] Last Admin: 12/25/17 10:15 Dose: 81 mg Enoxaparin Sodium (Lovenox) 40 mg SC DAILY [facility] Last Admin: 12/25/17 10:16 Dose: 40 mg Furosemide (Lasix) 40 mg IVP Q12H [facility] Last Admin: 12/25/17 10:25 Dose: 40 mg Cefepime HCl (Maxipime Iv 1 Gm Premix) 1 gm in 50 mls @ 100 mls/hr IVPB Q12H [facility]; Protocol Last Admin: 12/25/17 07:32 Dose: 100 mls/hr Ceftriaxone Sodium 1 gm/ (Sodium Chloride) 100 mls @ 100 mls/hr IVPB Q24H [facility]; Protocol Pantoprazole Sodium (Protonix Ec Tab) 40 mg PO DAILY [facility] Last Admin: 12/25/17 10:16 Dose: 40 mg Rosuvastatin Calcium (Crestor) 5 mg PO HS [facility] Last Admin: 12/24/17 21:15 Dose: 5 mg Tamsulosin HCl (Flomax) 0.4 mg PO DAILY [facility] Last Admin: 12/25/17 10:16 Dose: 0.4 mg Temazepam (Restoril) 30 mg PO HS PRN PRN Reason: Insomnia Last Admin: 12/24/17 22:10 Dose: 30 mg - Labs Labs: 12/25/17 08:00 12/25/17 08:00 PT 12.2 SECONDS (9.7-12.2) 12/17/17 06:07 INR 1.1 12/17/17 06:07 APTT 30 SECONDS (21-34) D 12/17/17 06:07 - Head Exam Head Exam: NORMOCEPHALIC - Neck Exam Neck Exam: Normal Inspection - Respiratory Exam Respiratory Exam: NORMAL BREATHING PATTERN - Cardiovascular Exam Cardiovascular Exam: REGULAR RHYTHM - Neurological Exam Neurological Exam: Alert, Oriented x3 Assessment and Plan (1) CHF exacerbation Assessment & Plan: Improved, diuretics with fluid restriction. Maintain electrolyte balance. Status: Acute (2) Cardiac arrest Status: Acute (3) Chest pain Assessment & Plan: Improved. Further cardiac work-up as per Dr. Maddox. Status: Acute
[2017-12-26] MEDS: Cefepime IV 1 gm in Dextrose 1 GM/50 ML BAG IVPB SCH ×2 (05:25→18:04)
[2017-12-26] MEDS ORDERED: Albuterol-Ipratrop 3 mg / 0.5 (3 ml) UD INH STA (06:22)
--- NOTE | 2017-12-26 07:24 | CP.PCM.PN ---
Subjective - Date & Time of Evaluation Date of Evaluation: 12/26/17 Time of Evaluation: 07:24 - Subjective Subjective: Tee Simmons PGY-1, Medicine progress note for Dr. Gonzalez Patient seen and examined at bedside. Patient experienced recurrence of chest pain, left sided, with some shortness of breath earlier this morning. Patient states of the chest pain is similar to the pain that he has been having over the past few days, no change in nature and reproducible on exam. Patient states that his shortness of breath is unchanged from prior days,. Patient denies fever, Chills, headache, dizziness, weakness, abdominal pain, nausea, vomiting, diarrhea, numbness or tingling. Patient was evaluated at bedside with cardiology, Dr. Sanchez, and patient has agreed to cardiac catheterization tomorrow. A 12- point ROS was reviewed and is otherwise unremarkable. Objective - Vital Signs/Intake and Output Vital Signs (last 24 hours): Temp Pulse Resp BP Pulse Ox 97.6 F 80 20 119/77 98 12/25/17 23:15 12/26/17 06:00 12/26/17 06:00 12/26/17 06:00 12/26/17 06:00 Intake and Output: 12/26/17 12/26/17 06:59 18:59 Output Total 400 Balance -400 - Medications Medications: Current Medications Acetaminophen (Tylenol 325mg Tab) 650 mg PO Q6 PRN PRN Reason: Pain, Mild (1-3) Last Admin: 12/26/17 06:07 Dose: 650 mg Amiodarone HCl (Cordarone) [address] [facility] Last Admin: 12/25/17 10:15 Dose: 200 mg Aspirin (Aspirin Chewable) [address] [facility] Last Admin: 12/25/17 10:15 Dose: 81 mg Enoxaparin Sodium (Lovenox) [address] [facility] Last Admin: 12/25/17 10:16 Dose: 40 mg Furosemide (Lasix) [address] [facility] Last Admin: 12/25/17 21:42 Dose: 40 mg Cefepime HCl (Maxipime Iv 1 Gm Premix) 1 gm in 50 mls @ 100 mls/hr IVPB Q12H [facility]; Protocol Last Admin: 12/26/17 05:25 Dose: 100 mls/hr Pantoprazole Sodium (Protonix Ec Tab) [address] [facility] Last Admin: 12/25/17 10:16 Dose: 40 mg Rosuvastatin Calcium (Crestor) [address] [facility] Last Admin: 12/25/17 21:42 Dose: 5 mg Tamsulosin HCl (Flomax) 0.[address] [facility] Last Admin: 12/25/17 10:16 Dose: 0.4 mg Temazepam (Restoril) 30 mg PO HS PRN PRN Reason: Insomnia Last Admin: 12/25/17 22:55 Dose: 30 mg - Labs Labs: 12/25/17 08:00 12/25/17 08:00 PT 12.2 SECONDS (9.7-12.2) 12/17/17 06:07 INR 1.1 12/17/17 06:07 APTT 30 SECONDS (21-34) D 12/17/17 06:07 - Constitutional Appears: Well, No Acute Distress - Head Exam Head Exam: ATRAUMATIC, NORMAL INSPECTION - Eye Exam Eye Exam: EOMI, Normal appearance - ENT Exam ENT Exam: Mucous Membranes Moist - Neck Exam Neck Exam: Normal Inspection - Respiratory Exam Respiratory Exam: Rhonchi (scattered ronchi, left greater than right), Wheezes. absent: Respiratory Distress - Cardiovascular Exam Cardiovascular Exam: REGULAR RHYTHM, +S1, +S2 - GI/Abdominal Exam GI & Abdominal Exam: Soft, Normal Bowel Sounds. absent: Tenderness - Extremities Exam Extremities Exam: Full ROM, Pedal Edema (3+ pitting edema to the bilateral extremities, up to the siddiqi) - Neurological Exam Neurological Exam: Alert, Awake, Oriented x3 - Psychiatric Exam Psychiatric exam: Normal Affect, Normal Mood - Skin Skin Exam: Dry, Normal Color, Warm Assessment and Plan - Assessment and Plan (Free Text) Assessment: This is a 72 yo Mongolian-speaking M with PMH of [place], Afib, PVD, CHF, CAD, ACID placement, presenting with worsening shortness of breath & L inguinal hernia without signs of incarceration or obstruction, s/p extubation 2/2 cardiac arrest during cardiac catherization (12/12/17); ROSC obtained after 6 shocks, 2 rounds of Epi and 1 round of bicarb. Plan: NSTEMI (non-ST elevated myocardial infarction) CHF exacerbation - BNP: downtrended and stable s/p cath - Trops x 3 negative (on admission), recent trops during cardiac arrest elevated; downtrended to 1.5 - continue to keep head of bed elevated @ 45 degrees Imaging: - CXR (12/08): Moderate to severe venous congestion. Moderate loculated left and small right pleural effusion. Prominent consolidative opacification in the left mid to lower lung zone and right lung base. Prominent vascularity in the right paratracheal region. Cardiomegaly. Left-sided pacemaker - Echo: LVEF 30%, LV moderately dilated, mild to moderate concentric LVH, mild left ventricular diastolic dysfunction, systolic function moderately impaired, Moderate pulmonic valvular regurgitation - f/u cardiology for cardiology clearance for inguinal hernia surgery - Pt scheduled for cardiac catherization tomorrow with Dr. Maddox (12/27) - NPO past midinight Current management: - hold home med: spironolactone 25 mg PO daily (held 2/ BP) - c/w lasix 40mg IV Q12 - c/w amiodarone 200 PO daily - awaiting cardiac catheterization - D/C to [facility] pending any acute intervention needed after cardiac catheterization - PT eval/treat - CXR (12/26) shows improving lower lobe infiltrates, stable bilateral pleural effusions; continue with current lasix regimen. Wheezing/SOB, likely due to combination of COPD (given smoking history) and CHF exacerbation - pt's symptoms have improved with intermittent treatments during hospital stay - pt started on Duonebs q6h with q4h prn; which has helped in during hospital stay Inguinal Hernia - CT abdomen/pelvis (12/08): L inguinal hernia with no evidence of incarceration or obstruction - Vascular surgery (Dr. Fox) recs - pt will obtain surgery as outpatient - Cardio (Dr. Maddox) recs (cardiac clearance for surgery) - Pt scheduled for cardiac catherization tomorrow with Dr. Maddox (12/27) Hx of Atrial Fibrillation - Pt is hemodynamically stable - d/c home medications held s/p cardiac arrest - Digoxin 0.125mg PO daily - coreg 12.5 mg PO daily - continue with amiodarone 200 mg PO daily - c/w Aspirin 81 mg PO daily - No therapeutic anticoagulation at this time due to previous GI bleed Hx of HTN - hold home meds: - coreg 12.5 mg PO daily - lisinopril 5mg PO daily Hx of CAD - c/w home medications: - Crestor 5 mg PO daily - ASA 81mg PO daily UTI, (leukocytosis on 12/24) - leukocystosis is downtrending - UTI on UA (12/25) - Pt on cefepime already - pt remains remains afebrile, not tachycardic - Urine Cx (12/17): Morg Marganii sensitive to Cefepime. - Trachasp Cx (12/17): Klebsiella Oxytoca sensitive to Cefepime - f/u ID (Dr. Keating) recs - Continue with Cefepime 1gm IVPB q12 (started 12/19) - will trend with AM labs Hypokalemia - resolved - potassium 20 mEq in Dextrose has been discontinued - monitor with AM labs PPX, Diet, Disposition - DVT ppx: Lovenox 40 sc daily - GI: protonix 40 PO daily - NPO past midnight for cardiac catheterization tomorrow - PT eval and treat for gait instability/decompensation Dispo: Plan to discharge to [facility] after cardiac clearance for cardiac rehab before going home. All medical management as per Dr. Carlos Simmons PGY-1
[2017-12-26 07:43] LABS: BASO # 0.2 K/uL (0.0-0.2); BASO % 1.1 % (0.0-2.0); EOS # 0.4 K/uL (0.0-0.7); EOS % 2.8 % (0.0-4.0); HEMOGLOBIN 10.9 g/dL (12.0-18.0); LYMPH # 1.3 K/uL (1.0-4.3); LYMPH % 9.9 % (20.0-40.0); MEAN CELL VOLUME 91.3 fL (80.0-94.0); MEAN CORPUSCULAR HEMOGLOBIN 29.9 pg (27.0-31.0); MEAN CORPUSCULAR HGB CONC 32.7 g/dL (33.0-37.0); MEAN PLATELET VOLUME 8.9 fL (7.2-11.7); MONO # 1.3 K/uL (0.0-0.8); MONO % 9.8 % (0.0-10.0); NEUT # 10.2 K/uL (1.8-7.0); NEUT % 76.4 % (50.0-75.0); PLATELET COUNT 385 K/uL (130-400); RBC 3.64 Mil/uL (4.40-5.90); RED CELL DISTRIBUTION WIDTH 13.8 % (11.5-14.5); WHITE BLOOD COUNT 13.4 K/uL (4.8-10.8)
[2017-12-26 07:58] LABS: ALBUMIN 3.5 g/dL (3.5-5.0); ALT/SGPT 81 U/L (21-72); AST/SGOT 38 U/L (17-59); BLOOD UREA NITROGEN 49 mg/dL (9-20); CALCIUM 9.2 mg/dl (8.6-10.4); GFR NON-AFRICAN AMERICAN 50
[2017-12-26 09:09] LABS: BANDS 1 % (0-2); EOSINOPHIL 3 % (0-4); LYMPHOCYTE 12 % (20-40); MONOCYTE 6 % (0-10); NEUTROPHIL 78 % (50-75); PLATELET ESTIMATE NORMAL (NORMAL); TOTAL CELLS COUNTED 100
[2017-12-26] MEDS: Pantoprazole 40 mg EC Tab PO SCH (10:21)
[2017-12-26] MEDS: Enoxaparin 40 mg Syringe SC SCH (10:21)
[2017-12-26] MEDS ORDERED: Albuterol-Ipratrop 3 mg / 0.5 (3 ml) UD INH PRN (10:43)
--- NOTE | 2017-12-26 11:02 | RAD ---
Date of service: 12/26/2017 HISTORY: Shortness of breath. COMPARISON: 12/18/2017. FINDINGS: LUNGS: Interval improvement in lower lobe infiltrates. PLEURA: Persistent approximately stable bilateral pleural effusions. CARDIOVASCULAR: Cardiomegaly. No evidence of acute, significant cardiovascular disease. Position/ configuration of pacemaker Satisfactory. OSSEOUS STRUCTURES: No significant abnormalities. VISUALIZED UPPER ABDOMEN: Normal. OTHER FINDINGS: Removal of support apparatus since the prior study: Patient has been extubated in the interim. IMPRESSION: Improving lower lobe infiltrates. Stable bilateral pleural effusions.
[2017-12-26] MEDS: Albuterol-Ipratrop 3 mg / 0.5 (3 ml) UD INH SCH (19:46)
--- NOTE | 2017-12-26 22:00 | CP.PCM.PN ---
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) S/P cardiac arrest For Cath tomrrow at 2 or 3pm NPO after breakfast Objective - Vital Signs/Intake and Output Vital Signs (last 24 hours): Temp Pulse Resp BP Pulse Ox 97.3 F L 81 20 130/70 98 12/26/17 16:00 12/26/17 16:50 12/26/17 16:00 12/26/17 21:05 12/26/17 16:00 Intake and Output: 12/26/17 12/27/17 18:59 06:59 Intake Total 400 Balance 400 - Medications Medications: Current Medications Acetaminophen (Tylenol 325mg Tab) 650 mg PO Q6 PRN PRN Reason: Pain, Mild (1-3) Last Admin: 12/26/17 06:07 Dose: 650 mg Albuterol/Ipratropium (Duoneb 3 Mg/0.5 Mg (3 Ml) Ud) 3 ml INH RQ6 [facility] Last Admin: 12/26/17 19:46 Dose: 3 ml Albuterol/Ipratropium (Duoneb 3 Mg/0.5 Mg (3 Ml) Ud) 3 ml INH RQ4 PRN PRN Reason: Shortness of Breath Amiodarone HCl (Cordarone) 200 mg PO DAILY [facility] Last Admin: 12/26/17 10:21 Dose: 200 mg Aspirin (Aspirin Chewable) 81 mg PO DAILY [facility] Last Admin: 12/26/17 10:21 Dose: 81 mg Enoxaparin Sodium (Lovenox) 40 mg SC DAILY [facility] Last Admin: 12/26/17 10:21 Dose: 40 mg Furosemide (Lasix) 40 mg IVP Q12H [facility] Last Admin: 12/26/17 21:05 Dose: 40 mg Cefepime HCl (Maxipime Iv 1 Gm Premix) 1 gm in 50 mls @ 100 mls/hr IVPB Q12H [facility]; Protocol Last Admin: 12/26/17 18:04 Dose: 100 mls/hr Pantoprazole Sodium (Protonix Ec Tab) 40 mg PO DAILY [facility] Last Admin: 12/26/17 10:21 Dose: 40 mg Rosuvastatin Calcium (Crestor) 5 mg PO HS [facility] Last Admin: 12/26/17 21:05 Dose: 5 mg Tamsulosin HCl (Flomax) 0.4 mg PO DAILY [facility] Last Admin: 12/26/17 10:20 Dose: 0.4 mg Temazepam (Restoril) 30 mg PO HS PRN PRN Reason: Insomnia Last Admin: 12/26/17 21:05 Dose: 30 mg - Labs Labs: 12/26/17 07:37 12/26/17 07:37 PT 12.2 SECONDS (9.7-12.2) 12/17/17 06:07 INR 1.1 12/17/17 06:07 APTT 30 SECONDS (21-34) D 12/17/17 06:07
[2017-12-27] MEDS: Albuterol-Ipratrop 3 mg / 0.5 (3 ml) UD INH SCH ×4 (01:09→19:17)
[2017-12-27] MEDS: Cefepime IV 1 gm in Dextrose 1 GM/50 ML BAG IVPB SCH ×2 (05:34→18:00)
[2017-12-27 07:07] LABS: BASO # 0.1 K/uL (0.0-0.2); BASO % 0.8 % (0.0-2.0); EOS # 0.3 K/uL (0.0-0.7); EOS % 2.4 % (0.0-4.0); HEMOGLOBIN 10.5 g/dL (12.0-18.0); LYMPH # 0.9 K/uL (1.0-4.3); LYMPH % 6.9 % (20.0-40.0); MEAN CELL VOLUME 89.4 fL (80.0-94.0); MEAN CORPUSCULAR HEMOGLOBIN 29.5 pg (27.0-31.0); MEAN PLATELET VOLUME 8.7 fL (7.2-11.7); MONO % 7.8 % (0.0-10.0); NEUT # 10.9 K/uL (1.8-7.0); NEUT % 82.1 % (50.0-75.0); NRBC % 0.2 % (0.0-2.0); PLATELET COUNT 345 K/uL (130-400); RBC 3.56 Mil/uL (4.40-5.90); RED CELL DISTRIBUTION WIDTH 14.2 % (11.5-14.5); WHITE BLOOD COUNT 13.3 K/uL (4.8-10.8)
[2017-12-27 07:17] LABS: PROTHROMBIN TIME 11.3 SECONDS (9.7-12.2)
[2017-12-27 07:32] LABS: ALB/GLOB RATIO 0.9 (1.0-2.1); ALBUMIN 3.1 g/dL (3.5-5.0); ALT/SGPT 65 U/L (21-72); AST/SGOT 33 U/L (17-59); BLOOD UREA NITROGEN 48 mg/dL (9-20); CALCIUM 8.8 mg/dl (8.6-10.4); GFR NON-AFRICAN AMERICAN 60
[2017-12-27 08:54] LABS: BANDS 1 % (0-2); EOSINOPHIL 1 % (0-4); LYMPHOCYTE 3 % (20-40); MONOCYTE 9 % (0-10); NEUTROPHIL 86 % (50-75); TOTAL CELLS COUNTED 100
[2017-12-27 08:55] LABS: ANISOCYTOSIS SLIGHT; HYPOCHROMIC SLIGHT; MICROCYTOSIS SLIGHT; PLATELET ESTIMATE NORMAL (NORMAL); POIKILOCYTOSIS SLIGHT
[2017-12-27] MEDS ORDERED: Iodixanol 320 MG/ML 100 ML BOTTLE IV ONE (13:08)
[2017-12-27] MEDS ORDERED: Iodixanol 320 MG/ML 200 ML BOTTLE IV ONE ×2 (13:08→13:09)
[2017-12-27] MEDS ORDERED: Lidocaine Hydrochloride 5 ML INJ ONE ×2 (13:33→14:00)
[2017-12-27] MEDS ORDERED: DOPamine 400mg/250ml D5W 0 MG/0 ML BAG IV ONE (13:38)
[2017-12-27] MEDS ORDERED: DiphenhydrAMINE 50 mg/ml Inj ONE (13:51)
--- NOTE | 2017-12-27 14:45 | CP.PCM.PN ---
Subjective - Date & Time of Evaluation Date of Evaluation: 12/27/17 Time of Evaluation: 14:44 - Subjective Subjective: Tee Simmons PGY-1, Medicine progress note for Dr. Gonzalez Pt was seen and examined at bedside. He is resting comfortably, has no compl aints. Reports that his reproducible left sided chest pain is improving but still there. Pt had cardiac catheterization with Dr. Maddox today, which was well tolerated. Pt denies fever, chills, headache, dizziness, lightheadedess, visual changes, palpitations, sob, abdominal pain, n/v/d. A 12-point ROS was reviewed and is otherwise unremarkable. Objective - Vital Signs/Intake and Output Vital Signs (last 24 hours): Temp Pulse Resp BP Pulse Ox 97.9 F 77 18 139/74 96 12/27/17 08:13 12/27/17 08:13 12/27/17 08:13 12/27/17 08:13 12/27/17 08:13 Intake and Output: 12/27/17 12/27/17 06:59 18:59 Intake Total 110 Output Total 600 Balance -490 - Medications Medications: Current Medications Acetaminophen (Tylenol 325mg Tab) 650 mg PO Q6 PRN PRN Reason: Pain, Mild (1-3) Last Admin: 12/26/17 06:07 Dose: 650 mg Albuterol/Ipratropium (Duoneb 3 Mg/0.5 Mg (3 Ml) Ud) 3 ml INH RQ6 [facility] Last Admin: 12/27/17 14:11 Dose: Not Given Albuterol/Ipratropium (Duoneb 3 Mg/0.5 Mg (3 Ml) Ud) 3 ml INH RQ4 PRN PRN Reason: Shortness of Breath Amiodarone HCl (Cordarone) 200 mg PO DAILY [facility] Last Admin: 12/27/17 09:32 Dose: Not Given Aspirin (Aspirin Chewable) 81 mg PO DAILY [facility] Last Admin: 12/27/17 09:32 Dose: Not Given Enoxaparin Sodium (Lovenox) 40 mg SC DAILY [facility] Last Admin: 12/26/17 10:21 Dose: 40 mg Famotidine (Pepcid) 20 mg PO DAILY [facility] Last Admin: 12/27/17 09:32 Dose: Not Given Furosemide (Lasix) 40 mg IVP Q12H [facility] Last Admin: 12/27/17 11:00 Dose: Not Given Cefepime HCl (Maxipime Iv 1 Gm Premix) 1 gm in 50 mls @ 100 mls/hr IVPB Q12H [facility]; Protocol Last Admin: 12/27/17 05:34 Dose: 100 mls/hr Rosuvastatin Calcium (Crestor) 5 mg PO HS [facility] Last Admin: 12/26/17 21:05 Dose: 5 mg Tamsulosin HCl (Flomax) 0.4 mg PO DAILY [facility] Last Admin: 12/27/17 09:32 Dose: Not Given Temazepam (Restoril) 30 mg PO HS PRN PRN Reason: Insomnia Last Admin: 12/26/17 21:05 Dose: 30 mg - Labs Labs: 12/27/17 06:54 12/27/17 06:54 PT 11.3 SECONDS (9.7-12.2) 12/27/17 06:54 INR 1.0 12/27/17 06:54 APTT 30 SECONDS (21-34) D 12/17/17 06:07 - Constitutional Appears: Non-toxic, No Acute Distress - Head Exam Head Exam: ATRAUMATIC, NORMAL INSPECTION - Eye Exam Eye Exam: EOMI, Normal appearance - ENT Exam ENT Exam: Mucous Membranes Moist - Neck Exam Neck Exam: Normal Inspection - Respiratory Exam Respiratory Exam: Rales (scant rales at bases). absent: Wheezes - Cardiovascular Exam Cardiovascular Exam: REGULAR RHYTHM, +S1, +S2 - GI/Abdominal Exam GI & Abdominal Exam: Soft, Hernia (large left inguinal hernia; unchanged from prior exam), Normal Bowel Sounds. absent: Tenderness - Extremities Exam Extremities Exam: Full ROM, Pedal Edema (2+ pitting edema bilaterally to the siddiqi). absent: Calf Tenderness - Back Exam Back Exam: NORMAL INSPECTION - Neurological Exam Neurological Exam: Alert, Awake, Oriented x3 - Psychiatric Exam Psychiatric exam: Normal Affect, Normal Mood - Skin Skin Exam: Dry, Intact, Normal Color Assessment and Plan - Assessment and Plan (Free Text) Assessment: This is a 72 yo Malagasy-speaking M with PMH of [place], Afib, PVD, CHF, CAD, ACID placement, presenting with worsening shortness of breath & L inguinal hernia without signs of incarceration or obstruction, s/p extubation 2/2 cardiac arrest during cardiac catherization (12/12/17); ROSC obtained after 6 shocks, 2 rounds of Epi and 1 round of bicarb. Second cardiac cath (12/27) was well tolerated and showed no significant stenosis, and medical management as per cardiology. Plan: NSTEMI (non-ST elevated myocardial infarction) CHF exacerbation - BNP: downtrended and stable s/p prior cath - Trops x 3 negative (on admission), recent trops during cardiac arrest raghu vated; downtrended to 1.5 - continue to keep head of bed elevated @ 45 degrees Imaging: - CXR (12/08): Moderate to severe venous congestion. Moderate loculated left and small right pleural effusion. Prominent consolidative opacification in the left mid to lower lung zone and right lung base. Prominent vascularity in the right paratracheal region. Cardiomegaly. Left-sided pacemaker - Echo: LVEF 30%, LV moderately dilated, mild to moderate concentric LVH, mild left ventricular diastolic dysfunction, systolic function moderately impaired, Moderate pulmonic valvular regurgitation - f/u cardiology for cardiology (Dr. Maddox) clearance for inguinal hernia surgery - As per Dr. Maddox, cardiac catheterization today shows L Main: Patent. LAD/Diag: Proximal 30%. L Cx/OM: Patent. RCA: Dominant. Mid 50%. EF: 20% by ECHO - medical management as per Dr. Maddox: continue asa 81 mg PO daily, started Losartan 25 mg PO daily, started Metoprolol 12.5 mg PO BID Current management: - hold home med: spironolactone 25 mg PO daily (held 2/2 BP) - c/w lasix 40mg IV Q12 - c/w amiodarone 200 PO daily - awaiting cardiac catheterization - CM/SW consulted for placement to [facility] - PT eval/treat - CXR (12/26) shows improving lower lobe infiltrates, stable bilateral pleural effusions; continue with current lasix regimen. Wheezing/SOB, likely due to combination of COPD (given smoking history) and CHF exacerbation - continue Duonebs q6h with q4h prn Inguinal Hernia - CT abdomen/pelvis (12/08): L inguinal hernia with no evidence of incarceration or obstruction - Vascular surgery (Dr. Fox) recs - pt will obtain surgery as outpatient - Cardio (Dr. Maddox) recs (cardiac clearance for surgery) - Cardiac cath results as mentioned above; medical management as per Dr. Maddox above - pt would like to have hernia repair at another time, cardiac clearance will be discussed with Dr. Maddox Hx of Atrial Fibrillation - Pt is hemodynamically stable - d/c home medications held s/p cardiac arrest - Digoxin 0.125mg PO daily - coreg 12.5 mg PO daily - continue with amiodarone 200 mg PO daily - c/w Aspirin 81 mg PO daily - No therapeutic anticoagulation at this time due to previous GI bleed Hx of HTN - hold home meds: - coreg 12.5 mg PO daily - discontinue lisinopril 5mg PO daily Hx of CAD - c/w home medications: - Crestor 5 mg PO daily - ASA 81mg PO daily - As per cardiology, pt started on Losartan 25 mg PO daily, Metoprolol 12.5 mg PO BID UTI, (leukocytosis on 12/24) - leukocystosis is downtrending - UTI on UA (12/25) - Pt on cefepime already - pt remains remains afebrile, not tachycardic - Urine Cx (12/17): Morg Marganii sensitive to Cefepime. - Trachasp Cx (12/17): Klebsiella Oxytoca sensitive to Cefepime - f/u ID (Dr. Keating) recs - Continue with Cefepime 1gm IVPB q12 (started 12/19) - continue to monitor Hypokalemia - resolved - potassium 20 mEq in Dextrose has been discontinued - monitor with AM labs PPX, Diet, Disposition - DVT ppx: Lovenox 40 sc daily - GI: Pepcid - HHD diet - PT eval and treat for gait instability/decompensation Dispo: Pt would like to do inguinal hernia repair at another time. CM/SW consulted for placement to [facility] Case discussed and reviewed with attending physician, Dr. Gonzalez All medical management as per Dr. Carlos Simmons PGY-1
--- NOTE | 2017-12-27 14:58 | CP.PCM.PN ---
Subjective - Date & Time of Evaluation Date of Evaluation: 12/27/17 Time of Evaluation: 14:51 - Subjective Subjective: Patient s/p cath 1. L Main: Patent 2. LAD/Diag: Proximal 30% 3. L Cx/OM: Patent 4. RCA: Dominant. Mid 50% 5. EF: 20% by ECHO Recommendations: b blockers, ACEI, ASA Check labs in am F/U Dr. Addy EDWARD in 2-3 weeks (Primary electronic equipment set up operator) Phone number: [phone] Please call the office and set up the appointmnet for the patient Medical follow up in [facility] Objective - Vital Signs/Intake and Output Vital Signs (last 24 hours): Temp Pulse Resp BP Pulse Ox 97.9 F 77 18 139/74 96 12/27/17 08:13 12/27/17 08:13 12/27/17 08:13 12/27/17 08:13 12/27/17 08:13 Intake and Output: 12/27/17 12/27/17 06:59 18:59 Intake Total 110 Output Total 600 Balance -490 - Medications Medications: Current Medications Acetaminophen (Tylenol 325mg Tab) 650 mg PO Q6 PRN PRN Reason: Pain, Mild (1-3) Last Admin: 12/26/17 06:07 Dose: 650 mg Albuterol/Ipratropium (Duoneb 3 Mg/0.5 Mg (3 Ml) Ud) 3 ml INH RQ6 [facility] Last Admin: 12/27/17 14:11 Dose: Not Given Albuterol/Ipratropium (Duoneb 3 Mg/0.5 Mg (3 Ml) Ud) 3 ml INH RQ4 PRN PRN Reason: Shortness of Breath Aspirin (Aspirin Chewable) 81 mg PO DAILY [facility] Last Admin: 12/27/17 09:32 Dose: Not Given Enoxaparin Sodium (Lovenox) 40 mg SC DAILY [facility] Last Admin: 12/26/17 10:21 Dose: 40 mg Famotidine (Pepcid) 20 mg PO DAILY [facility] Last Admin: 12/27/17 09:32 Dose: Not Given Furosemide (Lasix) 40 mg IVP Q12H [facility] Last Admin: 12/27/17 11:00 Dose: Not Given Cefepime HCl (Maxipime Iv 1 Gm Premix) 1 gm in 50 mls @ 100 mls/hr IVPB Q12H [facility]; Protocol Last Admin: 12/27/17 05:34 Dose: 100 mls/hr Losartan Potassium (Cozaar) 25 mg PO DAILY [facility] Metoprolol Tartrate (Lopressor) 12.5 mg PO BID [facility] Rosuvastatin Calcium (Crestor) 5 mg PO HS [facility] Last Admin: 12/26/17 21:05 Dose: 5 mg Tamsulosin HCl (Flomax) 0.4 mg PO DAILY [facility] Last Admin: 12/27/17 09:32 Dose: Not Given Temazepam (Restoril) 30 mg PO HS PRN PRN Reason: Insomnia Last Admin: 12/26/17 21:05 Dose: 30 mg - Labs Labs: 12/27/17 06:54 12/27/17 06:54 PT 11.3 SECONDS (9.7-12.2) 12/27/17 06:54 INR 1.0 12/27/17 06:54 APTT 30 SECONDS (21-34) D 12/17/17 06:07
[2017-12-28] MEDS: Albuterol-Ipratrop 3 mg / 0.5 (3 ml) UD INH SCH ×4 (01:12→19:13)
[2017-12-28] MEDS: Cefepime IV 1 gm in Dextrose 1 GM/50 ML BAG IVPB SCH ×2 (05:52→17:13)
[2017-12-28 08:18] LABS: BASO # 0.1 K/uL (0.0-0.2); BASO % 0.4 % (0.0-2.0); HEMOGLOBIN 10.7 g/dL (12.0-18.0); LYMPH # 0.4 K/uL (1.0-4.3); LYMPH % 2.4 % (20.0-40.0); MEAN CORPUSCULAR HEMOGLOBIN 29.8 pg (27.0-31.0); MEAN CORPUSCULAR HGB CONC 32.7 g/dL (33.0-37.0); MEAN PLATELET VOLUME 9.3 fL (7.2-11.7); MONO # 0.4 K/uL (0.0-0.8); MONO % 2.6 % (0.0-10.0); NEUT # 15.8 K/uL (1.8-7.0); NEUT % 94.6 % (50.0-75.0); PLATELET COUNT 354 K/uL (130-400); RBC 3.58 Mil/uL (4.40-5.90); RED CELL DISTRIBUTION WIDTH 14.2 % (11.5-14.5); WHITE BLOOD COUNT 16.7 K/uL (4.8-10.8)
[2017-12-28 08:23] LABS: ALBUMIN 3.3 g/dL (3.5-5.0); ALT/SGPT 58 U/L (21-72); AST/SGOT 30 U/L (17-59); BLOOD UREA NITROGEN 53 mg/dL (9-20); CALCIUM 9.3 mg/dl (8.6-10.4); GFR NON-AFRICAN AMERICAN 60
[2017-12-28 09:07] LABS: BANDS 1 % (0-2); LYMPHOCYTE 1 % (20-40); MONOCYTE 1 % (0-10); NEUTROPHIL 97 % (50-75); TOTAL CELLS COUNTED 100
[2017-12-28 09:08] LABS: PLATELET ESTIMATE NORMAL (NORMAL)
[2017-12-28] MEDS: Enoxaparin 40 mg Syringe SC SCH (10:35)
[2017-12-28] MEDS ORDERED: Sod Polystyrene Sulf 15 gm/60 ml Susp PO ONE (12:13)
--- NOTE | 2017-12-28 13:29 | CP.PCM.PN ---
Subjective - Date & Time of Evaluation Date of Evaluation: 12/28/17 Time of Evaluation: 13:29 - Subjective Subjective: Tee Simmons PGY-1, Medicine progress note for Dr. Gonzalez Pt was seen and examined at bedside. He is resting comfortably, has no compl aints at this time. No acute events overnight. Pt denies fever, chills, headache, dizziness, lightheadedness, visual changes, chest pain, palpitations, sob, abdominal pain, n/v/d. A 12-point ROS was reviewed and is otherwise unremarkable. Objective - Vital Signs/Intake and Output Vital Signs (last 24 hours): Temp Pulse Resp BP Pulse Ox 97.4 F L 78 20 141/80 96 12/28/17 07:10 12/28/17 12:00 12/28/17 07:10 12/28/17 09:43 12/28/17 07:10 Intake and Output: 12/28/17 12/28/17 06:59 18:59 Intake Total 610 Output Total 400 Balance 210 - Medications Medications: Current Medications Acetaminophen (Tylenol 325mg Tab) 650 mg PO Q6 PRN PRN Reason: Pain, Mild (1-3) Last Admin: 12/26/17 06:07 Dose: 650 mg Albuterol/Ipratropium (Duoneb 3 Mg/0.5 Mg (3 Ml) Ud) 3 ml INH RQ6 [facility] Last Admin: 12/28/17 08:36 Dose: Not Given Albuterol/Ipratropium (Duoneb 3 Mg/0.5 Mg (3 Ml) Ud) 3 ml INH RQ4 PRN PRN Reason: Shortness of Breath Aspirin (Aspirin Chewable) 81 mg PO DAILY [facility] Last Admin: 12/28/17 09:49 Dose: 81 mg Enoxaparin Sodium (Lovenox) 40 mg SC DAILY [facility] Last Admin: 12/28/17 10:35 Dose: 40 mg Famotidine (Pepcid) 20 mg PO DAILY [facility] Last Admin: 12/28/17 09:51 Dose: 20 mg Furosemide (Lasix) 40 mg IVP Q12H [facility] Last Admin: 12/28/17 09:43 Dose: 40 mg Cefepime HCl (Maxipime Iv 1 Gm Premix) 1 gm in 50 mls @ 100 mls/hr IVPB Q12H [facility]; Protocol Last Admin: 12/28/17 05:52 Dose: 100 mls/hr Losartan Potassium (Cozaar) 25 mg PO DAILY [facility] Last Admin: 12/28/17 09:50 Dose: 25 mg Metoprolol Tartrate (Lopressor) 12.5 mg PO BID [facility] Last Admin: 12/28/17 09:51 Dose: 12.5 mg Rosuvastatin Calcium (Crestor) 5 mg PO HS [facility] Last Admin: 12/27/17 22:50 Dose: 5 mg Tamsulosin HCl (Flomax) 0.4 mg PO DAILY [facility] Last Admin: 12/28/17 09:50 Dose: 0.4 mg Temazepam (Restoril) 30 mg PO HS PRN PRN Reason: Insomnia Last Admin: 12/26/17 21:05 Dose: 30 mg - Labs Labs: 12/28/17 07:52 12/28/17 07:52 PT 11.3 SECONDS (9.7-12.2) 12/27/17 06:54 INR 1.0 12/27/17 06:54 APTT 30 SECONDS (21-34) D 12/17/17 06:07 - Constitutional Appears: Non-toxic, No Acute Distress - Eye Exam Eye Exam: EOMI, Normal appearance - ENT Exam ENT Exam: Mucous Membranes Moist - Neck Exam Neck Exam: Normal Inspection - Respiratory Exam Respiratory Exam: Chest Wall Tenderness (left upper chest wall tenderness), Decreased Breath Sounds (at the bases), Rales (scant at the bases), NORMAL BREATHING PATTERN. absent: Rhonchi, Wheezes, Respiratory Distress - Cardiovascular Exam Cardiovascular Exam: REGULAR RHYTHM, +S1, +S2 - GI/Abdominal Exam GI & Abdominal Exam: Soft, Hernia (left inguinal hernia), Normal Bowel Sounds. absent: Tenderness, Rebound Additional comments: (+) right groin pressure dressing inplace from catheterization; C/D/I, no hematoma, no tenderness, no signs of bleeding or infection - Extremities Exam Extremities Exam: Normal Inspection. absent: Calf Tenderness, Pedal Edema, Tenderness - Back Exam Back Exam: NORMAL INSPECTION - Neurological Exam Neurological Exam: Alert, Awake, Oriented x3 - Psychiatric Exam Psychiatric exam: Normal Affect, Normal Mood - Skin Skin Exam: Dry, Normal Color, Warm Assessment and Plan - Assessment and Plan (Free Text) Assessment: This is a 72 yo Belarusian-speaking M with PMH of [place], Afib, PVD, CHF, CAD, ACID placement, presenting with worsening shortness of breath & L inguinal hernia without signs of incarceration or obstruction, s/p extubation 2/2 cardiac arrest during cardiac catherization (12/12/17); ROSC obtained after 6 shocks, 2 rounds of Epi and 1 round of bicarb. Second cardiac cath (12/27) was well tolerated and showed no significant stenosis, and medical management as per cardiology. Plan: NSTEMI (non-ST elevated myocardial infarction) CHF exacerbation - BNP: downtrended and stable s/p prior cath - Trops x 3 negative (on admission), recent trops during cardiac arrest elevated; downtrended to 1.5 - continue to keep head of bed elevated @ 45 degrees Imaging: - CXR (12/08): Moderate to severe venous congestion. Moderate loculated left and small right pleural effusion. Prominent consolidative opacification in the left mid to lower lung zone and right lung base. Prominent vascularity in the right paratracheal region. Cardiomegaly. Left-sided pacemaker - Echo: LVEF 30%, LV moderately dilated, mild to moderate concentric LVH, mild left ventricular diastolic dysfunction, systolic function moderately impaired, Moderate pulmonic valvular regurgitation - f/u cardiology for cardiology (Dr. Maddox) clearance for inguinal hernia surgery - As per Dr. Maddox, cardiac catheterization shows L Main: Patent. LAD/Diag: Proximal 30%. L Cx/OM: Patent. RCA: Dominant. Mid 50%. EF: 20% by ECHO - medical management as per Dr. Maddox: continue asa 81 mg PO daily, start Losartan 25 mg PO daily, start Metoprolol 12.5 mg PO BID Current management: - hold home med: spironolactone 25 mg PO daily (held 05/04 BP) - discontinue lasix IV - Pt to continue with Lasix 40 mg PO BID - c/w amiodarone 200 PO daily - CM/SW to arrange for possible discharge to [facility] in the morning (12/29) - PT eval/treat - CXR (12/26) shows improving lower lobe infiltrates, stable bilateral pleural effusions; continue with current lasix regimen. Hyperkalemia; likely medication side effect - potassium of 5.3 is likely due to starting Losartan 25 mg BID on 12/[address] Maddox - Pt asymptomatic - treated with kayexalate 15 mg PO once - will hold Losartain Wheezing/SOB, likely due to combination of COPD (given smoking history) and CHF exacerbation - continue Duonebs q6h with q4h prn Inguinal Hernia - CT abdomen/pelvis (12/08): L inguinal hernia with no evidence of incarceration or obstruction - Vascular surgery (Dr. Fox) recs - pt will obtain surgery as outpatient - Cardio (Dr. Maddox) recs (cardiac clearance for surgery) - Cardiac cath results as mentioned above; medical management as per Dr. Maddox above - pt would like to have hernia repair at another time, cardiac clearance will be discussed with Dr. Maddox - will give inguinal hernia support prior to discharge to [facility] Hx of Atrial Fibrillation - Pt is hemodynamically stable - d/c home medications held s/p cardiac arrest - Digoxin 0.125mg PO daily - coreg 12.5 mg PO daily - continue with amiodarone 200 mg PO daily - c/w Aspirin 81 mg PO daily - No therapeutic anticoagulation at this time due to previous GI bleed Hx of HTN - hold home meds: - coreg 12.5 mg PO daily - discontinue lisinopril 5mg PO daily Hx of CAD - c/w home medications: - Crestor 5 mg PO daily - ASA 81mg PO daily - As per cardiology, pt started on Losartan 25 mg PO daily, Metoprolol 12.5 mg PO BID UTI, (leukocytosis on 12/24) - leukocystosis - UTI on UA (12/25) - pt remains remains afebrile, not tachycardic - Continue with Cefepime 1gm IVPB q12 (started 12/19) - Urine Cx (12/17): Morg Marganii sensitive to Cefepime. - Trachasp Cx (12/17): Klebsiella Oxytoca sensitive to Cefepime - f/u ID (Dr. Keating) recs - continue to monitor Hypokalemia - resolved - potassium 20 mEq in Dextrose has been discontinued - monitor with AM labs PPX, Diet, Disposition - DVT ppx: Lovenox 40 sc daily - GI: Pepcid 20 mg PO daily - HHD diet - PT eval and treat for gait instability/decompensation Dispo: Pt would like to do inguinal hernia repair at another time. CM/SW to arrange for possible discharge to [facility] ([place]) in the morning (12/29) Case discussed and reviewed with attending physician, Dr. Gonzalez All medical management as per Dr. Carlos Simmons PGY-1
--- NOTE | 2017-12-28 22:32 | CP.PCM.PN ---
Subjective - Date & Time of Evaluation Date of Evaluation: 12/28/17 Time of Evaluation: 12:05 - Subjective Subjective: Patient s/p cath 1. L Main: Patent 2. LAD/Diag: Proximal 30% 3. L Cx/OM: Patent 4. RCA: Dominant. Mid 50% 5. EF: 20% by ECHO Recommendations: b blockers, ACEI, ASA Check labs in am F/U Dr. 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 Objective - Vital Signs/Intake and Output Vital Signs (last 24 hours): Temp Pulse Resp BP Pulse Ox 97.5 F L 76 20 134/68 96 12/28/17 15:05 12/28/17 20:00 12/28/17 15:05 12/28/17 21:01 12/28/17 15:05 - Medications Medications: Current Medications Acetaminophen (Tylenol 325mg Tab) 650 mg PO Q6 PRN PRN Reason: Pain, Mild (1-3) Last Admin: 12/26/17 06:07 Dose: 650 mg Albuterol/Ipratropium (Duoneb 3 Mg/0.5 Mg (3 Ml) Ud) 3 ml INH RQ6 [facility] Last Admin: 12/28/17 19:13 Dose: 3 ml Albuterol/Ipratropium (Duoneb 3 Mg/0.5 Mg (3 Ml) Ud) 3 ml INH RQ4 PRN PRN Reason: Shortness of Breath Aspirin (Aspirin Chewable) 81 mg PO DAILY [facility] Last Admin: 12/28/17 09:49 Dose: 81 mg Enoxaparin Sodium (Lovenox) 40 mg SC DAILY [facility] Last Admin: 12/28/17 10:35 Dose: 40 mg Famotidine (Pepcid) 20 mg PO DAILY [facility] Last Admin: 12/28/17 09:51 Dose: 20 mg Furosemide (Lasix) 40 mg IVP Q12H [facility] Last Admin: 12/28/17 21:01 Dose: 40 mg Cefepime HCl (Maxipime Iv 1 Gm Premix) 1 gm in 50 mls @ 100 mls/hr IVPB Q12H [facility]; Protocol Last Admin: 12/28/17 17:13 Dose: 100 mls/hr Losartan Potassium (Cozaar) 25 mg PO DAILY [facility] Last Admin: 12/28/17 09:50 Dose: 25 mg Metoprolol Tartrate (Lopressor) 12.5 mg PO BID [facility] Last Admin: 12/28/17 17:13 Dose: 12.5 mg Rosuvastatin Calcium (Crestor) 5 mg PO HS [facility] Last Admin: 12/28/17 21:01 Dose: 5 mg Tamsulosin HCl (Flomax) 0.4 mg PO DAILY [facility] Last Admin: 12/28/17 09:50 Dose: 0.4 mg Zolpidem Tartrate (Ambien) 5 mg PO HS PRN PRN Reason: Insomnia Last Admin: 12/28/17 21:01 Dose: 5 mg - Labs Labs: 12/28/17 07:52 12/28/17 07:52 PT 11.3 SECONDS (9.7-12.2) 12/27/17 06:54 INR 1.0 12/27/17 06:54 APTT 30 SECONDS (21-34) D 12/17/17 06:07
[2017-12-29] MEDS: Albuterol-Ipratrop 3 mg / 0.5 (3 ml) UD INH SCH ×4 (02:00→19:24)
[2017-12-29] MEDS: Cefepime IV 1 gm in Dextrose 1 GM/50 ML BAG IVPB SCH ×2 (04:55→17:40)
[2017-12-29 07:07] LABS: BASO # 0.1 K/uL (0.0-0.2); BASO % 0.3 % (0.0-2.0); EOS % 0.3 % (0.0-4.0); HEMOGLOBIN 10.3 g/dL (12.0-18.0); LYMPH # 0.9 K/uL (1.0-4.3); LYMPH % 4.8 % (20.0-40.0); MEAN CELL VOLUME 89.9 fL (80.0-94.0); MEAN CORPUSCULAR HEMOGLOBIN 29.3 pg (27.0-31.0); MEAN CORPUSCULAR HGB CONC 32.6 g/dL (33.0-37.0); MEAN PLATELET VOLUME 9.1 fL (7.2-11.7); MONO # 1.3 K/uL (0.0-0.8); MONO % 7.2 % (0.0-10.0); NEUT # 15.9 K/uL (1.8-7.0); NEUT % 87.4 % (50.0-75.0); PLATELET COUNT 363 K/uL (130-400); RBC 3.51 Mil/uL (4.40-5.90); RED CELL DISTRIBUTION WIDTH 14.2 % (11.5-14.5); WHITE BLOOD COUNT 18.1 K/uL (4.8-10.8)
[2017-12-29 07:26] LABS: ALBUMIN 3.2 g/dL (3.5-5.0); ALT/SGPT 69 U/L (21-72); AST/SGOT 41 U/L (17-59); BLOOD UREA NITROGEN 60 mg/dL (9-20); CALCIUM 9.3 mg/dl (8.6-10.4); GFR NON-AFRICAN AMERICAN 50
[2017-12-29 09:44] LABS: ANISOCYTOSIS SLIGHT; LYMPHOCYTE 3 % (20-40); MONOCYTE 6 % (0-10); NEUTROPHIL 91 % (50-75); PLATELET ESTIMATE NORMAL (NORMAL); TOTAL CELLS COUNTED 100
[2017-12-29 09:45] LABS: LARGE PLATELETS PRESENT; OVALOCYTES SLIGHT
[2017-12-29] MEDS: Enoxaparin 40 mg Syringe SC SCH (09:50)
--- NOTE | 2017-12-29 13:18 | CP.PCM.PN ---
Subjective - Date & Time of Evaluation Date of Evaluation: 12/29/17 Time of Evaluation: 07:00 - Subjective Subjective: PGY2- Progress Note for Dr. Gonzalez Patient seen and examined at bedside and in no acute distress. Patient says he still feels short of breath. Patient denies any headache, chest pain, abdominal pain, nausea, vomiting, constipation, or diarrhea. Objective - Vital Signs/Intake and Output Vital Signs (last 24 hours): Temp Pulse Resp BP Pulse Ox 97.7 F 66 20 129/73 97 12/29/17 07:00 12/29/17 07:00 12/29/17 07:00 12/29/17 09:51 12/29/17 07:00 Intake and Output: 12/29/17 12/29/17 06:59 18:59 Intake Total 410 480 Balance 410 480 - Medications Medications: Current Medications Acetaminophen (Tylenol 325mg Tab) 650 mg PO Q6 PRN PRN Reason: Pain, Mild (1-3) Last Admin: 12/26/17 06:07 Dose: 650 mg Albuterol/Ipratropium (Duoneb 3 Mg/0.5 Mg (3 Ml) Ud) 3 ml INH RQ6 [facility] Last Admin: 12/29/17 08:09 Dose: Not Given Albuterol/Ipratropium (Duoneb 3 Mg/0.5 Mg (3 Ml) Ud) 3 ml INH RQ4 PRN PRN Reason: Shortness of Breath Aspirin (Aspirin Chewable) 81 mg PO DAILY [facility] Last Admin: 12/29/17 09:49 Dose: 81 mg Enoxaparin Sodium (Lovenox) 40 mg SC DAILY [facility] Last Admin: 12/29/17 09:50 Dose: 40 mg Famotidine (Pepcid) 20 mg PO DAILY [facility] Last Admin: 12/29/17 09:49 Dose: 20 mg Furosemide (Lasix) 40 mg PO BID [facility] Last Admin: 12/29/17 09:51 Dose: 40 mg Cefepime HCl (Maxipime Iv 1 Gm Premix) 1 gm in 50 mls @ 100 mls/hr IVPB Q12H [facility]; Protocol Last Admin: 12/29/17 04:55 Dose: 100 mls/hr Losartan Potassium (Cozaar) 25 mg PO DAILY [facility] Last Admin: 12/28/17 09:50 Dose: 25 mg Metoprolol Tartrate (Lopressor) 12.5 mg PO BID [facility] Last Admin: 12/29/17 09:51 Dose: 12.5 mg Rosuvastatin Calcium (Crestor) 5 mg PO HS [facility] Last Admin: 12/28/17 21:01 Dose: 5 mg Tamsulosin HCl (Flomax) 0.4 mg PO DAILY [facility] Last Admin: 12/29/17 09:49 Dose: 0.4 mg Zolpidem Tartrate (Ambien) 5 mg PO HS PRN PRN Reason: Insomnia Last Admin: 12/28/17 21:01 Dose: 5 mg - Labs Labs: 12/29/17 06:46 12/29/17 06:46 PT 11.3 SECONDS (9.7-12.2) 12/27/17 06:54 INR 1.0 12/27/17 06:54 APTT 30 SECONDS (21-34) D 12/17/17 06:07 - Additional Findings Additional findings: - Constitutional Appears: Non-toxic, No Acute Distress - Eye Exam Eye Exam: EOMI, Normal appearance - ENT Exam ENT Exam: Mucous Membranes Moist - Neck Exam Neck Exam: Normal Inspection - Respiratory Exam Respiratory Exam: Decreased Breath Sounds (at the bases), Rales (scant at the bases), NORMAL BREATHING PATTERN. absent: Rhonchi, Wheezes, Respiratory Distress - Cardiovascular Exam Cardiovascular Exam: REGULAR RHYTHM, +S1, +S2 - GI/Abdominal Exam GI & Abdominal Exam: Soft, Hernia (left inguinal hernia), Normal Bowel Sounds. absent: Tenderness, Rebound Additional comments: (+) right groin pressure dressing inplace from catheterization; C/D/I, no hematoma, no tenderness, no signs of bleeding or infection - Extremities Exam Extremities Exam: Normal Inspection. absent: Calf Tenderness, Pedal Edema, Tenderness - Back Exam Back Exam: NORMAL INSPECTION - Neurological Exam Neurological Exam: Alert, Awake, Oriented x3 - Psychiatric Exam Psychiatric exam: Normal Affect, Normal Mood - Skin Skin Exam: Dry, Normal Color, Warm Assessment and Plan - Assessment and Plan (Free Text) Assessment: This is a 72 yo Czech-speaking M with PMH of [place], Afib, PVD, CHF, CAD, ACID placement, presenting with worsening shortness of breath & L inguinal hernia without signs of incarceration or obstruction, s/p extubation 2/2 cardiac arrest during cardiac catherization (12/12/17); ROSC obtained after 6 shocks, 2 rounds of Epi and 1 round of bicarb. Second cardiac cath (12/27) was well tolerated and showed no significant stenosis, and medical management as per cardiology. Plan: NSTEMI (non-ST elevated myocardial infarction) CHF exacerbation - BNP: downtrended and stable s/p prior cath - Trops x 3 negative (on admission), recent trops during cardiac arrest elevated; downtrended to 1.5 - continue to keep head of bed elevated @ 45 degrees Imaging: - CXR (12/08): Moderate to severe venous congestion. Moderate loculated left and small right pleural effusion. Prominent consolidative opacification in the left mid to lower lung zone and right lung base. Prominent vascularity in the right paratracheal region. Cardiomegaly. Left-sided pacemaker - Echo: LVEF 30%, LV moderately dilated, mild to moderate concentric LVH, mild left ventricular diastolic dysfunction, systolic function moderately impaired, Moderate pulmonic valvular regurgitation - f/u cardiology for cardiology (Dr. Maddox) clearance for inguinal hernia surgery - As per Dr. Maddox, cardiac catheterization shows L Main: Patent. LAD/Diag: Proximal 30%. L Cx/OM: Patent. RCA: Dominant. Mid 50%. EF: 20% by ECHO - medical management as per Dr. Maddox: continue asa 81 mg PO daily, start Losartan 25 mg PO daily, start Metoprolol 12.5 mg PO BID Current management: - hold home med: spironolactone 25 mg PO daily (held 2/ BP) - Pt to continue with Lasix 40 mg PO BID - amiodarone 200 PO daily d/c 12/27 -Crestor 5mg po HS - CM/SW to arrange for possible discharge to [facility] in the morning (12/29) - PT eval/treat - CXR (12/26) shows improving lower lobe infiltrates, stable bilateral pleural effusions; continue with current lasix regimen. Leukocytosis WBC up trending (18.1 on 12/29) repeat UA, urine culture, cxray and blood cultures Hyperkalemia; resolved likely medication side effect - potassium of 5.3 is likely due to starting Losartan 25 mg BID on 12/[address] Maddox - Pt asymptomatic - treated with kayexalate 15 mg PO once - will hold Losartain Wheezing/SOB- improved -likely due to combination of COPD (given smoking history) and CHF exacerbation - continue Duonebs q6h with q4h prn Inguinal Hernia - CT abdomen/pelvis (12/08): L inguinal hernia with no evidence of incarceration o r obstruction - Vascular surgery (Dr. Fox) recs - pt will obtain surgery as outpatient - Cardio (Dr. Maddox) recs (cardiac clearance for surgery) - Cardiac cath results as mentioned above; medical management as per Dr. Maddox above - pt would like to have hernia repair at another time, cardiac clearance will be discussed with Dr. Maddox - will give inguinal hernia support prior to discharge to [facility] Hx of Atrial Fibrillation - Pt is hemodynamically stable - d/c home medications held s/p cardiac arrest - Digoxin 0.125mg PO daily - coreg 12.5 mg PO daily - amiodarone 200 mg PO daily stopped on 12/27 - c/w Aspirin 81 mg PO daily - No therapeutic anticoagulation at this time due to previous GI bleed Hx of HTN -metoprolol 12.5mg po BID -hold losartan 25mg po daily Hx of CAD - c/w home medications: - Crestor 5 mg PO daily - ASA 81mg PO daily - As per cardiology, pt started on Losartan 25 mg PO daily, Metoprolol 12.5 mg PO BID UTI, resolved -repeat urine culture on 12/20 and 12/24 negative - UTI on UA (12/25) - pt remains remains afebrile, not tachycardic - Continue with Cefepime 1gm IVPB q12 (started 12/19) - Urine Cx (12/17): Morg Marganii sensitive to Cefepime. - Trachasp Cx (12/17): Klebsiella Oxytoca sensitive to Cefepime - f/u ID (Dr. Keating) recs - continue to monitor BPH -flomax .4mg po daily Hypokalemia - resolved - potassium 20 mEq in Dextrose has been discontinued - monitor with AM labs PPX, Diet, Disposition - DVT ppx: Lovenox 40 sc daily - GI: Pepcid 20 mg PO daily - Ambien 5mg po hs for insomnia - HHD diet - PT eval and treat for gait instability/decompensation Dispo: Pt would like to do inguinal hernia repair at another time. possible discharge to [facility] ([place]) held due to leukocytosis Case discussed and reviewed with attending physician, Dr. Gonzalez All medical management as per Dr. Gonzalez
--- NOTE | 2017-12-29 17:29 | RAD ---
Date of service: 12/29/2017 HISTORY: increasing leukocytosis, chf COMPARISON: 12/26/2017 FINDINGS: LUNGS: Worsening infiltrate/consolidative changes left lower lobe. PLEURA: Bilateral pleural effusions have improved. CARDIOVASCULAR: Stable cardiomegaly. Position/ configuration of pacemaker device: Satisfactory. OSSEOUS STRUCTURES: No significant abnormalities. VISUALIZED UPPER ABDOMEN: Normal. OTHER FINDINGS: None. IMPRESSION: Worsening left lower lobe infiltrate.
[2017-12-29 19:07] LABS: SQUAMOUS EPITHIAL 1 /hpf (0-5); URINE BACTERIA RARE (<OCC); URINE BILIRUBIN NEGATIVE (NEGATIVE); URINE BLOOD 1+ (NEGATIVE); URINE CLARITY Clear (Clear); URINE COLOR Yellow (YELLOW); URINE GLUCOSE (UA) NORMAL (Normal); URINE LEUKOCYTE ESTERASE TRACE Leu/uL (Negative); URINE PROTEIN 1+ mg/dL (NEGATIVE); URINE UROBILINOGEN NORMAL mg/dL (0.2-1.0)
[2017-12-30] MEDS: Albuterol-Ipratrop 3 mg / 0.5 (3 ml) UD INH SCH ×4 (02:45→19:27)
[2017-12-30] MEDS: Cefepime IV 1 gm in Dextrose 1 GM/50 ML BAG IVPB SCH ×2 (05:02→17:39)
--- NOTE | 2017-12-30 08:12 | CP.PCM.PN ---
Subjective - Date & Time of Evaluation Date of Evaluation: 12/30/17 Time of Evaluation: 07:00 - Subjective Subjective: PGY2- Progress Note for Dr. Gonzalez Patient seen and examined at bedside and in no acute distress. Patient says he still feels short of breath. Patient denies any headache, chest pain, abdominal pain, nausea, vomiting, constipation, or diarrhea. Objective - Vital Signs/Intake and Output Vital Signs (last 24 hours): Temp Pulse Resp BP Pulse Ox 97.9 F 76 20 130/70 96 12/29/17 23:05 12/30/17 04:17 12/29/17 23:05 12/29/17 23:05 12/29/17 23:05 - Medications Medications: Current Medications Acetaminophen (Tylenol 325mg Tab) 650 mg PO Q6 PRN PRN Reason: Pain, Mild (1-3) Last Admin: 12/26/17 06:07 Dose: 650 mg Albuterol/Ipratropium (Duoneb 3 Mg/0.5 Mg (3 Ml) Ud) 3 ml INH RQ6 ASPEN Last Admin: 12/30/17 07:32 Dose: 3 ml Albuterol/Ipratropium (Duoneb 3 Mg/0.5 Mg (3 Ml) Ud) 3 ml INH RQ4 PRN PRN Reason: Shortness of Breath Aspirin (Aspirin Chewable) 81 mg PO DAILY [facility] Last Admin: 12/29/17 09:49 Dose: 81 mg Enoxaparin Sodium (Lovenox) 40 mg SC DAILY [facility] Last Admin: 12/29/17 09:50 Dose: 40 mg Famotidine (Pepcid) 20 mg PO DAILY [facility] Last Admin: 12/29/17 09:49 Dose: 20 mg Furosemide (Lasix) 40 mg PO BID [facility] Last Admin: 12/29/17 17:39 Dose: 40 mg Cefepime HCl (Maxipime Iv 1 Gm Premix) 1 gm in 50 mls @ 100 mls/hr IVPB Q12H [facility]; Protocol Last Admin: 12/30/17 05:02 Dose: 100 mls/hr Losartan Potassium (Cozaar) 25 mg PO DAILY [facility] Last Admin: 12/28/17 09:50 Dose: 25 mg Metoprolol Tartrate (Lopressor) 12.5 mg PO BID [facility] Last Admin: 12/29/17 17:40 Dose: 12.5 mg Rosuvastatin Calcium (Crestor) 5 mg PO HS [facility] Last Admin: 12/29/17 21:15 Dose: 5 mg Tamsulosin HCl (Flomax) 0.4 mg PO DAILY [facility] Last Admin: 12/29/17 09:49 Dose: 0.4 mg Zolpidem Tartrate (Ambien) 5 mg PO HS PRN PRN Reason: Insomnia Last Admin: 12/29/17 21:15 Dose: 5 mg - Labs Labs: 12/29/17 06:46 12/29/17 06:46 PT 11.3 SECONDS (9.7-12.2) 12/27/17 06:54 INR 1.0 12/27/17 06:54 APTT 30 SECONDS (21-34) D 12/17/17 06:07 - Additional Findings Additional findings: - Constitutional Appears: Non-toxic, No Acute Distress - Eye Exam Eye Exam: EOMI, Normal appearance - ENT Exam ENT Exam: Mucous Membranes Moist - Neck Exam Neck Exam: Normal Inspection - Respiratory Exam Respiratory Exam: Decreased Breath Sounds (at the bases), Rales (scant at the bases), NORMAL BREATHING PATTERN. absent: Rhonchi, Wheezes, Respiratory Distress - Cardiovascular Exam Cardiovascular Exam: REGULAR RHYTHM, +S1, +S2 - GI/Abdominal Exam GI & Abdominal Exam: Soft, Hernia (left inguinal hernia), Normal Bowel Sounds. absent: Tenderness, Rebound Additional comments: (+) right groin pressure dressing inplace from catheterization; C/D/I, no brittani dany, no tenderness, no signs of bleeding or infection - Extremities Exam Extremities Exam: Normal Inspection. absent: Calf Tenderness, Pedal Edema, Tenderness - Back Exam Back Exam: NORMAL INSPECTION - Neurological Exam Neurological Exam: Alert, Awake, Oriented x3 - Psychiatric Exam Psychiatric exam: Normal Affect, Normal Mood - Skin Skin Exam: Dry, Normal Color, Warm Assessment and Plan - Assessment and Plan (Free Text) Assessment: This is a 72 yo Turkmen-speaking M with PMH of [place], Afib, PVD, CHF, CAD, ACID placement, presenting with worsening shortness of breath & L inguinal hernia without signs of incarceration or obstruction, s/p extubation 2/2 cardiac arrest during cardiac catherization (12/12/17); ROSC obtained after 6 shocks, 2 rounds of Epi and 1 round of bicarb. Second cardiac cath (12/27) was well tolerated and showed no significant stenosis, and medical management as per cardiology. Plan: NSTEMI (non-ST elevated myocardial infarction) CHF exacerbation - BNP: downtrended and stable s/p prior cath - Trops x 3 negative (on admission), recent trops during cardiac arrest elevated; downtrended to 1.5 - continue to keep head of bed elevated @ 45 degrees Imaging: - CXR (12/08): Moderate to severe venous congestion. Moderate loculated left and small right pleural effusion. Prominent consolidative opacification in the left mid to lower lung zone and right lung base. Prominent vascularity in the right paratracheal region. Cardiomegaly. Left-sided pacemaker - Echo: LVEF 30%, LV moderately dilated, mild to moderate concentric LVH, mild left ventricular diastolic dysfunction, systolic function moderately impaired, Moderate pulmonic valvular regurgitation - f/u cardiology for cardiology (Dr. Maddox) clearance for inguinal hernia surgery - As per Dr. Maddox, cardiac catheterization shows L Main: Patent. LAD/Diag: Proximal 30%. L Cx/OM: Patent. RCA: Dominant. Mid 50%. EF: 20% by ECHO - medical management as per Dr. Maddox: continue asa 81 mg PO daily, start Losartan 25 mg PO daily, start Metoprolol 12.5 mg PO BID Current management: - hold home med: spironolactone 25 mg PO daily (held 05/04 BP) - Pt to continue with Lasix 40 mg PO BID - amiodarone 200 PO daily d/c 12/27 -Crestor 5mg po HS - CM/SW to arrange for possible discharge to [facility] in the morning (12/29) - PT eval/treat - CXR (12/26) shows improving lower lobe infiltrates, stable bilateral pleural effusions; continue with current lasix regimen. Pneumonia cxray (12/29): worsening left lower lobe infiltrate Leukocytosis WBC up trending (18.1 on 12/29) repeat UA, urine culture, cxray and blood cultures Hyperkalemia; resolved likely medication side effect - potassium of 5.3 is likely due to starting Losartan 25 mg BID on 12/[address] Maddox - Pt asymptomatic - treated with kayexalate 15 mg PO once - will hold Losartain Inguinal Hernia - CT abdomen/pelvis (12/08): L inguinal hernia with no evidence of incarceration or obstruction - Vascular surgery (Dr. Fox) recs - pt will obtain surgery as outpatient - Cardio (Dr. Maddox) recs (cardiac clearance for surgery) - Cardiac cath results as mentioned above; medical management as per Dr. Maddox above - pt would like to have hernia repair at another time, cardiac clearance will be discussed with Dr. Maddox - will give inguinal hernia support prior to discharge to [facility] Hx of Atrial Fibrillation - Pt is hemodynamically stable - d/c home medications held s/p cardiac arrest - Digoxin 0.125mg PO daily - coreg 12.5 mg PO daily - amiodarone 200 mg PO daily stopped on 12/27 - c/w Aspirin 81 mg PO daily - No therapeutic anticoagulation at this time due to previous GI bleed Hx of HTN -metoprolol 12.5mg po BID -hold losartan 25mg po daily Hx of CAD - c/w home medications: - Crestor 5 mg PO daily - ASA 81mg PO dailyWill d/c Amiadorone F/U Dr. Cooper for cardiology as out patient - As per cardiology, pt started on Losartan 25 mg PO daily, Metoprolol 12.5 mg PO BID UTI, resolved -repeat urine culture on 12/20 and 12/24 negative - UTI on UA (12/25) - pt remains remains afebrile, not tachycardic - Continue with Cefepime 1gm IVPB q12 (started 12/19) - Urine Cx (12/17): Morg Marganii sensitive to Cefepime. - Trachasp Cx (12/17): Klebsiella Oxytoca sensitive to Cefepime - f/u ID (Dr. Keating) recs - continue to monitor BPH -flomax .4mg po daily Hypokalemia - resolved - potassium 20 mEq in Dextrose has been discontinued - monitor with AM labs PPX, Diet, Disposition - DVT ppx: Lovenox 40 sc daily - GI: Pepcid 20 mg PO daily - Ambien 5mg po hs for insomnia - HHD diet - PT eval and treat for gait instability/decompensation Dispo: Pt would like to do inguinal hernia repair at another time. possible discharge to [facility] ([facility] held due to leukocytosis Case discussed and reviewed with attending physician, Dr. Gonzalez All medical management as per Dr. Gonzalez
--- NOTE | 2017-12-30 08:41 | CP.PCM.PN ---
Subjective - Date & Time of Evaluation Date of Evaluation: 12/29/17 Time of Evaluation: 17:20 - Subjective Subjective: Patient seen and examined at bedside and in no acute distress. denies chest pain and dyspnea Physical examination - Additional Findings Additional findings: - Constitutional Appears: Non-toxic, No Acute Distress - Eye Exam Eye Exam: EOMI, Normal appearance - ENT Exam ENT Exam: Mucous Membranes Moist - Neck Exam Neck Exam: Normal Inspection - Respiratory Exam Respiratory Exam: Decreased Breath Sounds (at the bases), Rales (scant at the bases), NORMAL BREATHING PATTERN. absent: Rhonchi, Wheezes, Respiratory Distress - Cardiovascular Exam Cardiovascular Exam: REGULAR RHYTHM, +S1, +S2 - GI/Abdominal Exam GI & Abdominal Exam: Soft, Hernia (left inguinal hernia), Normal Bowel Sounds. absent: Tenderness, Rebound Additional comments: (+) right groin pressure dressing inplace from catheterization; C/D/I, no hematoma, no tenderness, no signs of bleeding or infection - Extremities Exam Extremities Exam: Normal Inspection. absent: Calf Tenderness, Pedal Edema, Tenderness - Back Exam Back Exam: NORMAL INSPECTION - Neurological Exam Neurological Exam: Alert, Awake, Oriented x3 - Psychiatric Exam Psychiatric exam: Normal Affect, Normal Mood - Skin Skin Exam: Dry, Normal Color, Warm Assessment and Plan - Assessment and Plan (Free Text) Assessment: This is a 72 yo Pashto-speaking M with PMH of [place], Afib, PVD, CHF, CAD, ACID placement, presenting with worsening shortness of breath & L inguinal hernia without signs of incarceration or obstruction, s/p extubation 2/2 cardiac arrest during cardiac catherization (12/12/17); ROSC obtained after 6 shocks, 2 rounds of Epi and 1 round of bicarb. Second cardiac cath (12/27) was well tolerated and showed no significant stenosis, and medical management as per cardiology. Plan: NSTEMI (non-ST elevated myocardial infarction) CHF exacerbation - BNP: downtrended and stable s/p prior cath - Trops x 3 negative (on admission), recent trops during cardiac arrest elevated; downtrended to 1.5 - continue to keep head of bed elevated @ 45 degrees Imaging: - CXR (12/08): Moderate to severe venous congestion. Moderate loculated left and small right pleural effusion. Prominent consolidative opacification in the left mid to lower lung zone and right lung base. Prominent vascularity in the right paratracheal region. Cardiomegaly. Left-sided pacemaker - Echo: LVEF 30%, LV moderately dilated, mild to moderate concentric LVH, mild left ventricular diastolic dysfunction, systolic function moderately impaired, Moderate pulmonic valvular regurgitation - Catheterization shows L Main: Patent. LAD/Diag: Proximal 30%. L Cx/OM: Patent. RCA: Dominant. Mid 50%. EF: 20% by ECHO - medical management as per Dr. Maddox: continue asa 81 mg PO daily, start Losartan 25 mg PO daily, start Metoprolol 12.5 mg PO BID Current management: - hold home med: spironolactone 25 mg PO daily (held 05/04 BP) - Pt to continue with Lasix 40 mg PO BID - amiodarone 200 PO daily d/c 12/27 -Crestor 5mg po HS - CM/SW to arrange for possible discharge to [facility] in the morning (12/29) - PT eval/treat - CXR (12/26) shows improving lower lobe infiltrates, stable bilateral pleural effusions; continue with current lasix regimen. Leukocytosis WBC up trending (18.1 on 12/29) repeat UA, urine culture, cxray and blood cultures Hyperkalemia; resolved likely medication side effect - potassium of 5.3 is likely due to starting Losartan 25 mg BID on 12/[address] Maddox - Pt asymptomatic - treated with kayexalate 15 mg PO once - will hold Losartain Wheezing/SOB- improved -likely due to combination of COPD (given smoking history) and CHF exacerbation - continue Duonebs q6h with q4h prn Inguinal Hernia - CT abdomen/pelvis (12/08): L inguinal hernia with no evidence of incarceration or obstruction - Vascular surgery (Dr. Fox) recs - pt will obtain surgery as outpatient - Cardio Moderate to high risk for Inguinal surgery under general anaesthesia Hx of Atrial Fibrillation - Pt is hemodynamically stable - d/c home medications held s/p cardiac arrest - Digoxin 0.125mg PO daily - coreg 12.5 mg PO daily - amiodarone 200 mg PO daily stopped on 12/27 - c/w Aspirin 81 mg PO daily - No therapeutic anticoagulation at this time due to previous GI bleed Hx of HTN -metoprolol 12.5mg po BID -hold losartan 25mg po daily Hx of CAD - c/w home medications: - Crestor 5 mg PO daily - ASA 81mg PO daily - As per cardiology, pt started on Losartan 25 mg PO daily, Metoprolol 12.5 mg PO BID UTI, resolved -repeat urine culture on 12/20 and 12/24 negative - UTI on UA (12/25) - pt remains remains afebrile, not tachycardic - Continue with Cefepime 1gm IVPB q12 (started 12/19) - Urine Cx (12/17): Morg Marganii sensitive to Cefepime. - Trachasp Cx (12/17): Klebsiella Oxytoca sensitive to Cefepime - f/u ID (Dr. Keating) recs - continue to monitor BPH -flomax .4mg po daily Hypokalemia - resolved - potassium 20 mEq in Dextrose has been discontinued - monitor with AM labs PPX, Diet, Disposition - DVT ppx: Lovenox 40 sc daily - GI: Pepcid 20 mg PO daily - Ambien 5mg po hs for insomnia - HHD diet - PT eval and treat for gait instability/decompensation Dispo: Pt would like to do inguinal hernia repair at another time. possible discharge to [facility] ([facility] held due to leukocytosis Will d/c Amiadorone F/U Dr. Cooper for cardiology as out patient Objective - Vital Signs/Intake and Output Vital Signs (last 24 hours): Temp Pulse Resp BP Pulse Ox 97.9 F 76 20 130/70 96 12/29/17 23:05 12/30/17 04:17 12/29/17 23:05 12/29/17 23:05 12/29/17 23:05 - Medications Medications: Current Medications Acetaminophen (Tylenol 325mg Tab) 650 mg PO Q6 PRN PRN Reason: Pain, Mild (1-3) Last Admin: 12/26/17 06:07 Dose: 650 mg Albuterol/Ipratropium (Duoneb 3 Mg/0.5 Mg (3 Ml) Ud) 3 ml INH RQ6 ASPEN Last Admin: 12/30/17 07:32 Dose: 3 ml Albuterol/Ipratropium (Duoneb 3 Mg/0.5 Mg (3 Ml) Ud) 3 ml INH RQ4 PRN PRN Reason: Shortness of Breath Aspirin (Aspirin Chewable) 81 mg PO DAILY [facility] Last Admin: 12/29/17 09:49 Dose: 81 mg Enoxaparin Sodium (Lovenox) 40 mg SC DAILY [facility] Last Admin: 12/29/17 09:50 Dose: 40 mg Famotidine (Pepcid) 20 mg PO DAILY [facility] Last Admin: 12/29/17 09:49 Dose: 20 mg Furosemide (Lasix) 40 mg PO BID [facility] Last Admin: 12/29/17 17:39 Dose: 40 mg Cefepime HCl (Maxipime Iv 1 Gm Premix) 1 gm in 50 mls @ 100 mls/hr IVPB Q12H [facility]; Protocol Last Admin: 12/30/17 05:02 Dose: 100 mls/hr Losartan Potassium (Cozaar) 25 mg PO DAILY [facility] Last Admin: 12/28/17 09:50 Dose: 25 mg Metoprolol Tartrate (Lopressor) 12.5 mg PO BID [facility] Last Admin: 12/29/17 17:40 Dose: 12.5 mg Rosuvastatin Calcium (Crestor) 5 mg PO HS [facility] Last Admin: 12/29/17 21:15 Dose: 5 mg Tamsulosin HCl (Flomax) 0.4 mg PO DAILY [facility] Last Admin: 12/29/17 09:49 Dose: 0.4 mg Zolpidem Tartrate (Ambien) 5 mg PO HS PRN PRN Reason: Insomnia Last Admin: 12/29/17 21:15 Dose: 5 mg - Labs Labs: 12/29/17 06:46 12/29/17 06:46 PT 11.3 SECONDS (9.7-12.2) 12/27/17 06:54 INR 1.0 12/27/17 06:54 APTT 30 SECONDS (21-34) D 12/17/17 06:07
[2017-12-30] MEDS: Enoxaparin 40 mg Syringe SC SCH (09:31)
--- NOTE | 2017-12-30 21:21 | CARDCATH ---
PROCEDURE DATE: 12/27/2017 PROCEDURES: 1. Left heart catheterization. 2. Coronary angiogram. CLINICAL INDICATIONS: 1. History of cardiac arrest. 2. Coronary artery disease. 3. Acute systolic heart failure. 4. Dyspnea. 5. Hypertension. 6. Hyperlipidemia. 7. History of contrast allergy. REFERRING PHYSICIANS: 1. Warren Gonzalez MD, primary physician. 2. Addy Cooper MD, primary music therapist. PERFORMING PHYSICIAN: Corey Maddox MD. DESCRIPTION OF PROCEDURE: After informed consent, the patient was prepped and draped in the usual sterile fashion. The patient has history of contrast allergy. The patient was premedicated with contrast allergy. Lidocaine 2% was given in the right groin for local anesthesia. Using micropuncture technique, a 6-Uzbek sheath was introduced into the right common femoral artery. A [id number] 6-Uzbek diagnostic catheter engaged into left main coronary artery. Contrast injected and left coronary angiogram was done. The catheter was exchanged to JR4 6-Uzbek diagnostic catheter. Contrast injected and right coronary angiogram was done. The patient tolerated the procedure well. Postprocedure, the Mynx closure device deployed with excellent hemostasis. Radiological supervision and radiological interpretation of the coronary imaging was done. FINDINGS: 1. Left main coronary artery is patent. 2. Proximal LAD has a 50% nonobstructive stenosis. Mid and distal LAD is patent. Diagonal branches are patent. 3. Left circumflex and obtuse marginal branches are patent. 4. Right coronary artery is a dominant system. Mid RCA has a non-obstructive 50% concentric stenosis. 5. LV angiogram was not done; however, LV ejection fraction by echocardiogram is 20%. IMPRESSION: 1. The patient has nonobstructive coronary artery disease as described above. 2. Nonischemic cardiomyopathy with low ejection fraction. RECOMMENDATIONS: The patient already has AICD. Continue patient management for heart failure. Upon discharge, the patient will follow up with Dr. Addy Cooper for cardiology and Dr. Warren Gonzalez for medicine. Corey Maddox MD
--- NOTE | 2017-12-30 21:56 | CP.PCM.PN ---
Subjective - Date & Time of Evaluation Date of Evaluation: 12/29/17 Time of Evaluation: 09:30 - Subjective Subjective: Patient seen and examined at bedside and in no acute distress. denies chest pain and dyspnea Physical examination - Additional Findings Additional findings: - Constitutional Appears: Non-toxic, No Acute Distress - Eye Exam Eye Exam: EOMI, Normal appearance - ENT Exam ENT Exam: Mucous Membranes Moist - Neck Exam Neck Exam: Normal Inspection - Respiratory Exam Respiratory Exam: Decreased Breath Sounds (at the bases), Rales (scant at the bases), NORMAL BREATHING PATTERN. absent: Rhonchi, Wheezes, Respiratory Distress - Cardiovascular Exam Cardiovascular Exam: REGULAR RHYTHM, +S1, +S2 - GI/Abdominal Exam GI & Abdominal Exam: Soft, Hernia (left inguinal hernia), Normal Bowel Sounds. absent: Tenderness, Rebound Additional comments: (+) right groin pressure dressing inplace from catheterization; C/D/I, no hematoma, no tenderness, no signs of bleeding or infection - Extremities Exam Extremities Exam: Normal Inspection. absent: Calf Tenderness, Pedal Edema, Tenderness - Back Exam Back Exam: NORMAL INSPECTION - Neurological Exam Neurological Exam: Alert, Awake, Oriented x3 - Psychiatric Exam Psychiatric exam: Normal Affect, Normal Mood - Skin Skin Exam: Dry, Normal Color, Warm Assessment and Plan - Assessment and Plan (Free Text) Assessment: This is a 72 yo Setsw[place]-speaking M with PMH of [place], Afib, PVD, CHF, CAD, ACID placement, presenting with worsening shortness of breath & L inguinal hernia without signs of incarceration or obstruction, s/p extubation 2/2 cardiac arrest during cardiac catherization (12/12/17); ROSC obtained after 6 shocks, 2 rounds of Epi and 1 round of bicarb. Second cardiac cath (12/27) was well tolerated and showed no significant stenosis, and medical management as per cardiology. Plan: NSTEMI (non-ST elevated myocardial infarction) CHF exacerbation - BNP: downtrended and stable s/p prior cath - Trops x 3 negative (on admission), recent trops during cardiac arrest elevated; downtrended to 1.5 - continue to keep head of bed elevated @ 45 degrees Imaging: - CXR (12/08): Moderate to severe venous congestion. Moderate loculated left and small right pleural effusion. Prominent consolidative opacification in the left mid to lower lung zone and right lung base. Prominent vascularity in the right paratracheal region. Cardiomegaly. Left-sided pacemaker - Echo: LVEF 30%, LV moderately dilated, mild to moderate concentric LVH, mild left ventricular diastolic dysfunction, systolic function moderately impaired, Moderate pulmonic valvular regurgitation - Catheterization shows L Main: Patent. LAD/Diag: Proximal 30%. L Cx/OM: Patent. RCA: Dominant. Mid 50%. EF: 20% by ECHO - medical management as per Dr. Maddox: continue asa 81 mg PO daily, start Losartan 25 mg PO daily, start Metoprolol 12.5 mg PO BID Current management: - hold home med: spironolactone 25 mg PO daily (held 05/04 BP) - Pt to continue with Lasix 40 mg PO BID - amiodarone 200 PO daily d/c 12/27 -Crestor 5mg po HS - CM/SW to arrange for possible discharge to [facility] in the morning (12/29) - PT eval/treat - CXR (12/26) shows improving lower lobe infiltrates, stable bilateral pleural effusions; continue with current lasix regimen. Leukocytosis WBC up trending (18.1 on 12/29) repeat UA, urine culture, cxray and blood cultures Hyperkalemia; resolved likely medication side effect - potassium of 5.3 is likely due to starting Losartan 25 mg BID on 12/[address] Maddox - Pt asymptomatic - treated with kayexalate 15 mg PO once - will hold Losartain Wheezing/SOB- improved -likely due to combination of COPD (given smoking history) and CHF exacerbation - continue Duonebs q6h with q4h prn Inguinal Hernia - CT abdomen/pelvis (12/08): L inguinal hernia with no evidence of incarceration or obstruction - Vascular surgery (Dr. Fox) recs - pt will obtain surgery as outpatient - Cardio Moderate to high risk for Inguinal surgery under general anaesthesia Hx of Atrial Fibrillation - Pt is hemodynamically stable - d/c home medications held s/p cardiac arrest - Digoxin 0.125mg PO daily - coreg 12.5 mg PO daily - amiodarone 200 mg PO daily stopped on 12/27 - c/w Aspirin 81 mg PO daily - No therapeutic anticoagulation at this time due to previous GI bleed Hx of HTN -metoprolol 12.5mg po BID -hold losartan 25mg po daily Hx of CAD - c/w home medications: - Crestor 5 mg PO daily - ASA 81mg PO daily - As per cardiology, pt started on Losartan 25 mg PO daily, Metoprolol 12.5 mg PO BID UTI, resolved -repeat urine culture on 12/20 and 12/24 negative - UTI on UA (12/25) - pt remains remains afebrile, not tachycardic - Continue with Cefepime 1gm IVPB q12 (started 12/19) - Urine Cx (12/17): Morg Marganii sensitive to Cefepime. - Trachasp Cx (12/17): Klebsiella Oxytoca sensitive to Cefepime - f/u ID (Dr. Keating) recs - continue to monitor BPH -flomax .4mg po daily Hypokalemia - resolved - potassium 20 mEq in Dextrose has been discontinued - monitor with AM labs PPX, Diet, Disposition - DVT ppx: Lovenox 40 sc daily - GI: Pepcid 20 mg PO daily - Ambien 5mg po hs for insomnia - HHD diet - PT eval and treat for gait instability/decompensation Dispo: Pt would like to do inguinal hernia repair at another time. possible discharge to [facility]) held due to leukocytosis Will d/c Amiadorone F/U Dr. Cooper for cardiology as out patient Objective - Vital Signs/Intake and Output Vital Signs (last 24 hours): Temp Pulse Resp BP Pulse Ox 7.5 F L 77 20 112/76 96 12/30/17 15:20 12/30/17 16:12 12/30/17 15:20 12/30/17 17:39 12/30/17 15:20 Intake and Output: 12/30/17 12/31/17 18:59 06:59 Intake Total 600 Balance 600 - Medications Medications: Current Medications Acetaminophen (Tylenol 325mg Tab) 650 mg PO Q6 PRN PRN Reason: Pain, Mild (1-3) Last Admin: 12/26/17 06:07 Dose: 650 mg Albuterol/Ipratropium (Duoneb 3 Mg/0.5 Mg (3 Ml) Ud) 3 ml INH RQ6 [facility] Last Admin: 12/30/17 19:27 Dose: Not Given Albuterol/Ipratropium (Duoneb 3 Mg/0.5 Mg (3 Ml) Ud) 3 ml INH RQ4 PRN PRN Reason: Shortness of Breath Aspirin (Aspirin Chewable) 81 mg PO DAILY [facility] Last Admin: 12/30/17 09:28 Dose: 81 mg Carvedilol (Coreg) 3.125 mg PO BID [facility] Last Admin: 12/30/17 21:20 Dose: 3.125 mg Enoxaparin Sodium (Lovenox) 40 mg SC DAILY [facility] Last Admin: 12/30/17 09:31 Dose: 40 mg Famotidine (Pepcid) 20 mg PO DAILY [facility] Last Admin: 12/30/17 09:28 Dose: 20 mg Furosemide (Lasix) 40 mg PO BID [facility] Last Admin: 12/30/17 17:39 Dose: 40 mg Cefepime HCl (Maxipime Iv 1 Gm Premix) 1 gm in 50 mls @ 100 mls/hr IVPB Q12H [facility]; Protocol Last Admin: 12/30/17 17:39 Dose: 100 mls/hr Losartan Potassium (Cozaar) 25 mg PO DAILY [facility] Last Admin: 12/28/17 09:50 Dose: 25 mg Rosuvastatin Calcium (Crestor) 5 mg PO HS [facility] Last Admin: 12/30/17 21:18 Dose: 5 mg Tamsulosin HCl (Flomax) 0.4 mg PO DAILY [facility] Last Admin: 12/30/17 09:28 Dose: 0.4 mg Zolpidem Tartrate (Ambien) 5 mg PO HS PRN PRN Reason: Insomnia Last Admin: 12/30/17 21:18 Dose: 5 mg - Labs Labs: 12/29/17 06:46 12/29/17 06:46 PT 11.3 SECONDS (9.7-12.2) 12/27/17 06:54 INR 1.0 12/27/17 06:54 APTT 30 SECONDS (21-34) D 12/17/17 06:07
[2017-12-31] MEDS: Albuterol-Ipratrop 3 mg / 0.5 (3 ml) UD INH SCH ×2 (02:23→19:38)
[2017-12-31] MEDS: Cefepime IV 1 gm in Dextrose 1 GM/50 ML BAG IVPB SCH ×2 (05:14→18:04)
[2017-12-31 06:46] LABS: BASO # 0.1 K/uL (0.0-0.2); BASO % 0.9 % (0.0-2.0); EOS # 0.2 K/uL (0.0-0.7); EOS % 1.8 % (0.0-4.0); HEMOGLOBIN 10.8 g/dL (12.0-18.0); LYMPH # 1.1 K/uL (1.0-4.3); LYMPH % 12.4 % (20.0-40.0); MEAN CELL VOLUME 90.9 fL (80.0-94.0); MEAN CORPUSCULAR HEMOGLOBIN 29.7 pg (27.0-31.0); MEAN CORPUSCULAR HGB CONC 32.6 g/dL (33.0-37.0); MEAN PLATELET VOLUME 9.1 fL (7.2-11.7); MONO # 1.1 K/uL (0.0-0.8); MONO % 12.2 % (0.0-10.0); NEUT # 6.4 K/uL (1.8-7.0); NEUT % 72.7 % (50.0-75.0); RBC 3.64 Mil/uL (4.40-5.90); RED CELL DISTRIBUTION WIDTH 14.3 % (11.5-14.5); WHITE BLOOD COUNT 8.8 K/uL (4.8-10.8)
[2017-12-31 07:36] LABS: ALBUMIN 3.1 g/dL (3.5-5.0); ALT/SGPT 55 U/L (21-72); AST/SGOT 27 U/L (17-59); BLOOD UREA NITROGEN 47 mg/dL (9-20); CALCIUM 9.1 mg/dl (8.6-10.4); GFR NON-AFRICAN AMERICAN 50
[2017-12-31] MEDS: Enoxaparin 40 mg Syringe SC SCH (09:13)
--- NOTE | 2017-12-31 10:00 | CP.PCM.PN ---
Subjective - Date & Time of Evaluation Date of Evaluation: 12/31/17 Time of Evaluation: 10:00 - Subjective Subjective: Tee Simmons PGY-1, Medicine progress note for Dr. Gonzalez Pt was seen and examined at bedside. Pt is resting comfortably and in no acute distress. No acute events overnight. He reports 4-5 episode of brown, loose, bowel movements per day since yesterday (12/30). Pt also reports a cough productive of white sputum, which is unchanged from yesterday. Pt's reproducible left chest wall tenderness is improving. Pt denies fever, chills, dizziness, headache, shortness of breath, abdominal pain, n/v, hematochezia, melena, hemoptysis, dysuria. Objective - Vital Signs/Intake and Output Vital Signs (last 24 hours): Temp Pulse Resp BP Pulse Ox 98.3 F 66 18 161/70 H 97 12/31/17 09:50 12/31/17 09:50 12/31/17 09:50 12/31/17 09:50 12/31/17 09:50 - Medications Medications: Current Medications Acetaminophen (Tylenol 325mg Tab) 650 mg PO Q6 PRN PRN Reason: Pain, Mild (1-3) Last Admin: 12/26/17 06:07 Dose: 650 mg Albuterol/Ipratropium (Duoneb 3 Mg/0.5 Mg (3 Ml) Ud) 3 ml INH RQ6 [facility] Last Admin: 12/31/17 02:23 Dose: Not Given Albuterol/Ipratropium (Duoneb 3 Mg/0.5 Mg (3 Ml) Ud) 3 ml INH RQ4 PRN PRN Reason: Shortness of Breath Aspirin (Aspirin Chewable) 81 mg PO DAILY [facility] Last Admin: 12/31/17 09:13 Dose: 81 mg Carvedilol (Coreg) 3.125 mg PO BID [facility] Last Admin: 12/31/17 09:16 Dose: 3.125 mg Enoxaparin Sodium (Lovenox) 40 mg SC DAILY [facility] Last Admin: 12/31/17 09:13 Dose: 40 mg Famotidine (Pepcid) 20 mg PO DAILY [facility] Last Admin: 12/31/17 09:13 Dose: 20 mg Furosemide (Lasix) 40 mg PO BID [facility] Last Admin: 12/31/17 09:16 Dose: 40 mg Cefepime HCl (Maxipime Iv 1 Gm Premix) 1 gm in 50 mls @ 100 mls/hr IVPB Q12H [facility]; Protocol Last Admin: 12/31/17 05:14 Dose: 100 mls/hr Losartan Potassium (Cozaar) 25 mg PO DAILY [facility] Last Admin: 12/28/17 09:50 Dose: 25 mg Rosuvastatin Calcium (Crestor) 5 mg PO HS [facility] Last Admin: 12/30/17 21:18 Dose: 5 mg Saccharomyces Boulardii (Florastor) 250 mg PO DAILY [facility] Tamsulosin HCl (Flomax) 0.4 mg PO DAILY [facility] Last Admin: 12/31/17 09:13 Dose: 0.4 mg Zolpidem Tartrate (Ambien) 5 mg PO HS PRN PRN Reason: Insomnia Last Admin: 12/30/17 21:18 Dose: 5 mg - Labs Labs: 12/31/17 06:35 12/31/17 06:35 PT 11.3 SECONDS (9.7-12.2) 12/27/17 06:54 INR 1.0 12/27/17 06:54 APTT 30 SECONDS (21-34) D 12/17/17 06:07 - Constitutional Appears: Non-toxic, No Acute Distress - Head Exam Head Exam: NORMAL INSPECTION, NORMOCEPHALIC - Eye Exam Eye Exam: EOMI, Normal appearance - ENT Exam ENT Exam: Mucous Membranes Moist - Neck Exam Neck Exam: Normal Inspection - Respiratory Exam Respiratory Exam: Chest Wall Tenderness (left sided), Rales (as the bases, bilaterally), Rhonchi (scattered), NORMAL BREATHING PATTERN Additional comments: (+)PPM in upper left chest wall - Cardiovascular Exam Cardiovascular Exam: REGULAR RHYTHM, +S1, +S2 - GI/Abdominal Exam GI & Abdominal Exam: Soft, Hernia (left inguinal), Normal Bowel Sounds. absent: Firm, Guarding, Rigid, Tenderness, Rebound - Extremities Exam Extremities Exam: Normal Inspection. absent: Calf Tenderness, Pedal Edema, Tenderness - Back Exam Back Exam: NORMAL INSPECTION - Neurological Exam Neurological Exam: Alert, Awake, Oriented x3 - Psychiatric Exam Psychiatric exam: Normal Affect, Normal Mood - Skin Skin Exam: Dry, Normal Color, Warm Assessment and Plan - Assessment and Plan (Free Text) Assessment: This is a 72 yo Turkmen-speaking M with PMH of [place], Afib, PVD, CHF, CAD, ACID placement, presenting with worsening shortness of breath & L inguinal hernia without signs of incarceration or obstruction, s/p extubation 2/2 cardiac arrest during cardiac catherization (12/12/17); ROSC obtained after 6 shocks, 2 rounds of Epi and 1 round of bicarb. Second cardiac cath (12/27) was well tolerated and showed no significant stenosis, and medical management as per cardiology. Plan: NSTEMI (non-ST elevated myocardial infarction) CHF exacerbation - BNP: downtrended and stable s/p prior cath - Trops x 3 negative (on admission), recent trops during cardiac arrest elevated; downtrended to 1.5 - continue to keep head of bed elevated @ 45 degrees Imaging: - CXR (12/08): Moderate to severe venous congestion. Moderate loculated left and small right pleural effusion. Prominent consolidative opacification in the left mid to lower lung zone and right lung base. Prominent vascularity in the right paratracheal region. Cardiomegaly. Left-sided pacemaker - Echo: LVEF 30%, LV moderately dilated, mild to moderate concentric LVH, mild left ventricular diastolic dysfunction, systolic function moderately impaired, Moderate pulmonic valvular regurgitation - f/u cardiology for cardiology (Dr. Maddox) clearance for inguinal hernia surgery - As per Dr. Maddox, cardiac catheterization shows L Main: Patent. LAD/Diag: Proximal 30%. L Cx/OM: Patent. RCA: Dominant. Mid 50%. EF: 20% by ECHO - medical management as per Dr. Maddox: continue asa 81 mg PO daily, start Losartan 25 mg PO daily, start Metoprolol 12.5 mg PO BID Current management: - hold home med: spironolactone 25 mg PO daily (held 2/ BP) - Pt to continue with Lasix 40 mg PO BID - amiodarone 200 PO daily d/c 12/27 - Crestor 5mg po HS - CM/SW to arrange for possible discharge to [facility] in the morning (12/29) - PT eval/treat Pneumonia - leukocytosis is resolved - CXR (12/26) shows improving lower lobe infiltrates, stable bilateral pleural effusions; continue with current lasix regimen. - CXR (12/29): worsening left lower lobe infiltrate - continue cefepime - BCx x2 is prelim negative x 48 hours - Pulmonology consulted, Dr. Casiano, recs appreciated UTI, resolved - repeat urine cultures on 12/20 and 12/24 and 12/29 are negative - UTI on UA (12/25), with recurrence of pyuria on 12/29 - pt remains remains afebrile, not tachycardic - Continue with Cefepime 1gm IVPB q12 (started 12/19) - Urine Cx (12/17): Morg Marganii sensitive to Cefepime. - Trachasp Cx (12/17): Klebsiella Oxytoca sensitive to Cefepime - continue to monitor Diarrhea, nonbloody, nonmelenic, nongreasy; likely secondary to IV antibiotics - pt is hemodynamically stable - H/H is stable - florastor 250 mg PO daily - f/u c.diff toxin A and B Hyperkalemia; resolved likely medication side effect - potassium of 5.3 was likely due to starting Losartan 25 mg BID on 12/[address] Maddox - Pt asymptomatic - treated with kayexalate 15 mg PO once - continue to hold Losartan - resolved on cmp 12/29 after holding losartan Inguinal Hernia - CT abdomen/pelvis (12/08): L inguinal hernia with no evidence of incarceration or obstruction - Vascular surgery (Dr. Fox) recs - pt will obtain surgery as outpatient - Cardio (Dr. Maddox) recs (cardiac clearance for surgery) - Cardiac cath results as mentioned above; medical management as per Dr. Maddox above - pt would like to have hernia repair at another time - will give inguinal hernia support prior to discharge Hx of Atrial Fibrillation - Pt is hemodynamically stable - d/c home medications held s/p cardiac arrest - Digoxin 0.125mg PO daily - coreg 12.5 mg PO daily - amiodarone 200 mg PO daily stopped on 12/27 - c/w Aspirin 81 mg PO daily - No therapeutic anticoagulation at this time due to previous GI bleed Hx of HTN -metoprolol 12.5mg po BID -hold losartan 25mg po daily Hx of CAD - c/w home medications: - Crestor 5 mg PO daily - ASA 81mg PO dailyWill d/c Amiadorone F/U Dr. Cooper for cardiology as out patient - As per cardiology, pt started on Losartan 25 mg PO daily, Metoprolol 12.5 mg PO BID BPH - flomax .4mg po daily Hypokalemia - resolved - potassium 20 mEq in Dextrose has been discontinued - continue to monitor with AM labs PPX, Diet, Disposition - DVT ppx: Lovenox 40 sc daily - GI: Pepcid 20 mg PO daily - Ambien 5mg po hs for insomnia - HHD diet - PT eval and treat for gait instability/decompensation Dispo: Pt would like to do inguinal hernia repair at another time. Possible discharge to [facility], pending resolution of pneumonia Case discussed and reviewed with attending physician, Dr. Gonzalez All medical management as per Dr. Carlos Simmons PGY-1
[2017-12-31] MEDS: Saccharomyces Boulardi 250 mg Cap PO SCH (10:57)
--- NOTE | 2017-12-31 17:34 | CP.PCM.CON ---
History of Present Illness - History of Present Illness History of Present Illness: reason for consultation: worsening lung infiltrate 72 M w/ PMHx of [place], Afib, PVD, CHF (EF 15-20%), CAD s/p ACID, who presented to ED w/ shortness of breath and admitted for CHF exacerbation. Cardiology was consulted and patient had a Lexiscan stress test performed showing large defect in the post/inferior with partial reversibility, severely reduced systolic dys EF 15-20%. Patient was taken for cardiac cath and Upon administration of contrast patient immediately developed hypotension. Code Blue was subsequently called. ACLS procol was initiated. patient was intubated and Later extubated and was transferred to the floor. Patient being treated for pneumonia with persistent left lower lung infiltrate. Patient also complaining of shortness of breath. Review of Systems - Review of Systems All systems: reviewed and no additional remarkable complaints except (cough and shortness of breath) Past Patient History - Infectious Disease Hx of Infectious Diseases: None - Past Medical History & Family History Past Medical History?: No - Past Social History Smoking Status: Heavy Smoker > 10 Cigarettes Daily - CARDIAC Hx Congestive Heart Failure: Yes Hx Hypertension: Yes - PULMONARY Hx Chronic Obstructive Pulmonary Disease (COPD): Yes - NEUROLOGICAL Hx Neurological Disorder: No - HEENT Hx HEENT Problems: Yes - RENAL Hx Chronic Kidney Disease: No - ENDOCRINE/METABOLIC Hx Endocrine Disorders: No - HEMATOLOGICAL/ONCOLOGICAL Hx Human Immunodeficiency Virus (HIV): No - INTEGUMENTARY Hx Dermatological Problems: No - MUSCULOSKELETAL/RHEUMATOLOGICAL Hx Musculoskeletal Disorders: No Hx Falls: No - GASTROINTESTINAL Hx Gastrointestinal Disorders: No - GENITOURINARY/GYNECOLOGICAL Hx Genitourinary Disorders: No - PSYCHIATRIC Hx Substance Use: No - SURGICAL HISTORY Hx Surgeries: Yes Hx Herniorrhaphy: Yes Other/Comment: Surgeries: Hernia repair and Pacemaker insertion - ANESTHESIA Hx Anesthesia: Yes Hx Anesthesia Reactions: No Hx Malignant Hyperthermia: No Meds Allergies/Adverse Reactions: Allergies Allergy/AdvReac Type Severity Reaction Status Date / Time Iodinated Contrast- Oral and AdvReac ANAPHYLAXIS Verified 12/26/17 18:00 IV Dye - Medications Medications: Current Medications Acetaminophen (Tylenol 325mg Tab) 650 mg PO Q6 PRN PRN Reason: Pain, Mild (1-3) Last Admin: 12/26/17 06:07 Dose: 650 mg Albuterol/Ipratropium (Duoneb 3 Mg/0.5 Mg (3 Ml) Ud) 3 ml INH RQ6 [facility] Last Admin: 12/31/17 02:23 Dose: Not Given Albuterol/Ipratropium (Duoneb 3 Mg/0.5 Mg (3 Ml) Ud) 3 ml INH RQ4 PRN PRN Reason: Shortness of Breath Aspirin (Aspirin Chewable) 81 mg PO DAILY [facility] Last Admin: 12/31/17 09:13 Dose: 81 mg Carvedilol (Coreg) 3.125 mg PO BID [facility] Last Admin: 12/31/17 09:16 Dose: 3.125 mg Enoxaparin Sodium (Lovenox) 40 mg SC DAILY [facility] Last Admin: 12/31/17 09:13 Dose: 40 mg Famotidine (Pepcid) 20 mg PO DAILY [facility] Last Admin: 12/31/17 09:13 Dose: 20 mg Furosemide (Lasix) 40 mg PO BID [facility] Last Admin: 12/31/17 09:16 Dose: 40 mg Cefepime HCl (Maxipime Iv 1 Gm Premix) 1 gm in 50 mls @ 100 mls/hr IVPB Q12H [facility]; Protocol Last Admin: 12/31/17 05:14 Dose: 100 mls/hr Losartan Potassium (Cozaar) 25 mg PO DAILY [facility] Last Admin: 12/28/17 09:50 Dose: 25 mg Rosuvastatin Calcium (Crestor) 5 mg PO HS [facility] Last Admin: 12/30/17 21:18 Dose: 5 mg Saccharomyces Boulardii (Florastor) 250 mg PO DAILY [facility] Last Admin: 12/31/17 10:57 Dose: 250 mg Tamsulosin HCl (Flomax) 0.4 mg PO DAILY [facility] Last Admin: 12/31/17 09:13 Dose: 0.4 mg Zolpidem Tartrate (Ambien) 5 mg PO HS PRN PRN Reason: Insomnia Last Admin: 12/30/17 21:18 Dose: 5 mg Physical Exam - Head Exam Head Exam: ATRAUMATIC, NORMOCEPHALIC - ENT Exam ENT Exam: Mucous Membranes Moist - Respiratory Exam Respiratory Exam: Decreased Breath Sounds - Cardiovascular Exam Cardiovascular Exam: REGULAR RHYTHM - GI/Abdominal Exam GI & Abdominal Exam: Normal Bowel Sounds - Extremities Exam Extremities exam: Positive for: normal inspection Results - Vital Signs Recent Vital Signs: Last Vital Signs Temp 97.5 F L 12/31/17 15:15 Pulse 78 12/31/17 16:08 Resp 20 12/31/17 15:15 BP 129/73 12/31/17 15:15 Pulse Ox 96 12/31/17 15:15 - Labs Result Diagrams: 12/31/17 06:35 12/31/17 06:35 Labs: Laboratory Results - last 24 hr 12/30/17 12/30/17 12/31/17 16:48 21:04 06:29 WBC RBC Hgb Hct MCV MCH MCHC RDW Plt Count MPV Neut % (Auto) Lymph % (Auto) [place] % (Auto) Eos % (Auto) Baso % (Auto) Neut # (Auto) Lymph # (Auto) [place] # (Auto) Eos # (Auto) Baso # (Auto) Sodium Potassium Chloride Carbon Dioxide Anion Gap BUN Creatinine Est GFR ( Amer) Est GFR (Non-Af Amer) POC Glucose (mg/dL) 95 104 105 Random Glucose Calcium Phosphorus Magnesium Total Bilirubin AST ALT Alkaline Phosphatase Total Protein Albumin Globulin Albumin/Globulin Ratio C. difficile Ag & Toxin 12/31/17 12/31/17 12/31/17 06:35 06:35 11:51 WBC 8.8 D RBC 3.64 L Hgb 10.8 L Hct 33.1 L MCV 90.9 MCH 29.7 MCHC 32.6 L RDW 14.3 Plt Count 340 MPV 9.1 Neut % (Auto) 72.7 Lymph % (Auto) 12.4 L [place] % (Auto) 12.2 H Eos % (Auto) 1.8 Baso % (Auto) 0.9 Neut # (Auto) 6.4 Lymph # (Auto) 1.1 [place] # (Auto) 1.1 H Eos # (Auto) 0.2 Baso # (Auto) 0.1 Sodium 139 Potassium 4.9 Chloride 101 Carbon Dioxide 31 H Anion Gap 12 BUN 47 H Creatinine 1.4 Est GFR ( Amer) > 60 Est GFR (Non-Af Amer) 50 POC Glucose (mg/dL) Random Glucose 109 Calcium 9.1 Phosphorus 3.2 Magnesium 1.9 Total Bilirubin 0.5 AST 27 ALT 55 Alkaline Phosphatase 83 Total Protein 6.3 Albumin 3.1 L Globulin 3.2 Albumin/Globulin Ratio 1.0 C. difficile Ag & Toxin Negative Assessment & Plan (1) Pneumonia Status: Acute Comment: CAT scan of the chest. Continue present treatment (2) COPD (chronic obstructive pulmonary disease) Status: Acute
--- NOTE | 2018-01-01 00:12 | CP.PCM.PN ---
Subjective - Date & Time of Evaluation Date of Evaluation: 12/31/17 Time of Evaluation: 13:20 - Subjective Subjective: Patient seen and evaluated denies chest pain and dyspnea Objective - Vital Signs/Intake and Output Vital Signs (last 24 hours): Temp Pulse Resp BP Pulse Ox 97.5 F L 80 20 129/73 96 12/31/17 15:15 12/31/17 23:28 12/31/17 15:15 12/31/17 18:04 12/31/17 15:15 - Medications Medications: Current Medications Acetaminophen (Tylenol 325mg Tab) 650 mg PO Q6 PRN PRN Reason: Pain, Mild (1-3) Last Admin: 12/26/17 06:07 Dose: 650 mg Albuterol/Ipratropium (Duoneb 3 Mg/0.5 Mg (3 Ml) Ud) 3 ml INH RQ6 ASPEN Last Admin: 12/31/17 19:38 Dose: 3 ml Albuterol/Ipratropium (Duoneb 3 Mg/0.5 Mg (3 Ml) Ud) 3 ml INH RQ4 PRN PRN Reason: Shortness of Breath Aspirin (Aspirin Chewable) 81 mg PO DAILY [facility] Last Admin: 12/31/17 09:13 Dose: 81 mg Carvedilol (Coreg) 3.125 mg PO BID [facility] Last Admin: 12/31/17 18:04 Dose: 3.125 mg Enoxaparin Sodium (Lovenox) 40 mg SC DAILY [facility] Last Admin: 12/31/17 09:13 Dose: 40 mg Famotidine (Pepcid) 20 mg PO DAILY [facility] Last Admin: 12/31/17 09:13 Dose: 20 mg Furosemide (Lasix) 40 mg PO BID [facility] Last Admin: 12/31/17 18:04 Dose: 40 mg Cefepime HCl (Maxipime Iv 1 Gm Premix) 1 gm in 50 mls @ 100 mls/hr IVPB Q12H [facility]; Protocol Last Admin: 12/31/17 18:04 Dose: 100 mls/hr Losartan Potassium (Cozaar) 25 mg PO DAILY [facility] Last Admin: 12/28/17 09:50 Dose: 25 mg Rosuvastatin Calcium (Crestor) 5 mg PO HS [facility] Last Admin: 12/31/17 22:24 Dose: 5 mg Saccharomyces Boulardii (Florastor) 250 mg PO DAILY [facility] Last Admin: 12/31/17 10:57 Dose: 250 mg Tamsulosin HCl (Flomax) 0.4 mg PO DAILY [facility] Last Admin: 12/31/17 09:13 Dose: 0.4 mg Zolpidem Tartrate (Ambien) 5 mg PO HS PRN PRN Reason: Insomnia Last Admin: 12/31/17 22:24 Dose: 5 mg - Labs Labs: 12/31/17 06:35 12/31/17 06:35 PT 11.3 SECONDS (9.7-12.2) 12/27/17 06:54 INR 1.0 12/27/17 06:54 APTT 30 SECONDS (21-34) D 12/17/17 06:07
[2018-01-01] MEDS: Albuterol-Ipratrop 3 mg / 0.5 (3 ml) UD INH SCH ×4 (02:15→19:48)
[2018-01-01] MEDS: Cefepime IV 1 gm in Dextrose 1 GM/50 ML BAG IVPB SCH ×2 (05:17→18:15)
[2018-01-01 07:19] LABS: BASO # 0.1 K/uL (0.0-0.2); BASO % 1.4 % (0.0-2.0); EOS # 0.2 K/uL (0.0-0.7); EOS % 1.8 % (0.0-4.0); HEMOGLOBIN 10.4 g/dL (12.0-18.0); LYMPH % 11.8 % (20.0-40.0); MEAN CELL VOLUME 90.4 fL (80.0-94.0); MEAN CORPUSCULAR HEMOGLOBIN 29.8 pg (27.0-31.0); MEAN CORPUSCULAR HGB CONC 32.9 g/dL (33.0-37.0); MEAN PLATELET VOLUME 9.6 fL (7.2-11.7); MONO # 0.9 K/uL (0.0-0.8); MONO % 11.3 % (0.0-10.0); NEUT # 6.1 K/uL (1.8-7.0); NEUT % 73.7 % (50.0-75.0); RBC 3.5 Mil/uL (4.40-5.90); RED CELL DISTRIBUTION WIDTH 14.5 % (11.5-14.5); WHITE BLOOD COUNT 8.3 K/uL (4.8-10.8)
[2018-01-01 07:38] LABS: AST/SGOT 40 U/L (17-59)
[2018-01-01 07:39] LABS: ALB/GLOB RATIO 0.9 (1.0-2.1); ALBUMIN 3.1 g/dL (3.5-5.0); ALT/SGPT 47 U/L (21-72); BLOOD UREA NITROGEN 49 mg/dL (9-20); CALCIUM 8.7 mg/dl (8.6-10.4); GFR NON-AFRICAN AMERICAN 60
--- NOTE | 2018-01-01 09:33 | RAD ---
Date of service: 01/01/2018 HISTORY: pneumonia COMPARISON: Chest radiograph 12/29/2017. TECHNIQUE: Chest PA and lateral FINDINGS: LUNGS: Limited linear atelectasis appreciate the inferior left lung zone. No alveolitis bilaterally. Costophrenic sulcus is blunted suggesting minimal right pleural effusion with none on the left. No pneumothorax bilaterally. Cardiomegaly is stable. No definite pulmonary vascular congestion. Pacemaker implanted defibrillator reiterated. PLEURA: As above. CARDIOVASCULAR: As above peer OSSEOUS STRUCTURES: No significant abnormalities. VISUALIZED UPPER ABDOMEN: Normal. OTHER FINDINGS: None. IMPRESSION: Atelectasis inferior left lung zone. No acute infiltrate bilaterally. Trace right pleural effusion identified. Cardiomegaly stable.
[2018-01-01] MEDS: Saccharomyces Boulardi 250 mg Cap PO SCH (10:34)
[2018-01-01] MEDS: Enoxaparin 40 mg Syringe SC SCH (10:34)
--- NOTE | 2018-01-01 11:41 | CP.PCM.PN ---
Subjective - Date & Time of Evaluation Date of Evaluation: 01/01/18 Time of Evaluation: 11:41 - Subjective Subjective: Tee Simmons PGY-1, Medicine progress note for Dr. Gonzalez Pt was seen and examined at bedside. Pt is resting comfortably and in no acute distress. No acute events overnight. He continues to have 3-5 episodes of brown, loose, bowel movements per day since 12/30. Pt's cough has improved. Pt's reproducible left chest wall tenderness continues to improve as well, and he states that it is only bothering him a little bit Pt denies fever, chills, dizziness, headache, shortness of breath, abdominal pain, n/v, hematochezia, melena, hemoptysis, dysuria. Pt is walking around the hospital unassisted, and would like to go home. Objective - Vital Signs/Intake and Output Vital Signs (last 24 hours): Temp Pulse Resp BP Pulse Ox 97.4 F L 73 18 132/69 96 01/01/18 07:00 01/01/18 07:00 01/01/18 07:00 01/01/18 10:36 01/01/18 07:00 - Medications Medications: Current Medications Acetaminophen (Tylenol 325mg Tab) 650 mg PO Q6 PRN PRN Reason: Pain, Mild (1-3) Last Admin: 12/26/17 06:07 Dose: 650 mg Albuterol/Ipratropium (Duoneb 3 Mg/0.5 Mg (3 Ml) Ud) 3 ml INH RQ6 [facility] Last Admin: 01/01/18 08:58 Dose: Not Given Albuterol/Ipratropium (Duoneb 3 Mg/0.5 Mg (3 Ml) Ud) 3 ml INH RQ4 PRN PRN Reason: Shortness of Breath Aspirin (Aspirin Chewable) 81 mg PO DAILY [facility] Last Admin: 01/01/18 10:34 Dose: 81 mg Carvedilol (Coreg) 3.125 mg PO BID [facility] Last Admin: 01/01/18 10:34 Dose: 3.125 mg Enoxaparin Sodium (Lovenox) 40 mg SC DAILY [facility] Last Admin: 01/01/18 10:34 Dose: 40 mg Famotidine (Pepcid) 20 mg PO DAILY [facility] Last Admin: 01/01/18 10:34 Dose: 20 mg Furosemide (Lasix) 40 mg PO BID [facility] Last Admin: 01/01/18 10:36 Dose: 40 mg Cefepime HCl (Maxipime Iv 1 Gm Premix) 1 gm in 50 mls @ 100 mls/hr IVPB Q12H [facility]; Protocol Last Admin: 01/01/18 05:17 Dose: 100 mls/hr Losartan Potassium (Cozaar) 25 mg PO DAILY [facility] Last Admin: 12/28/17 09:50 Dose: 25 mg Rosuvastatin Calcium (Crestor) 5 mg PO HS [facility] Last Admin: 12/31/17 22:24 Dose: 5 mg Saccharomyces Boulardii (Florastor) 250 mg PO DAILY [facility] Last Admin: 01/01/18 10:34 Dose: 250 mg Tamsulosin HCl (Flomax) 0.4 mg PO DAILY [facility] Last Admin: 01/01/18 10:34 Dose: 0.4 mg Zolpidem Tartrate (Ambien) 5 mg PO HS PRN PRN Reason: Insomnia Last Admin: 12/31/17 22:24 Dose: 5 mg - Labs Labs: 01/01/18 07:11 01/01/18 07:11 PT 11.3 SECONDS (9.7-12.2) 12/27/17 06:54 INR 1.0 12/27/17 06:54 APTT 30 SECONDS (21-34) D 12/17/17 06:07 - Constitutional Appears: Non-toxic, No Acute Distress - Head Exam Head Exam: NORMAL INSPECTION, NORMOCEPHALIC - Eye Exam Eye Exam: EOMI, Normal appearance - ENT Exam ENT Exam: Mucous Membranes Moist - Neck Exam Neck Exam: Normal Inspection - Respiratory Exam Respiratory Exam: Rales (minimal rales at the bases), NORMAL BREATHING PATTERN. absent: Accessory Muscle Use, Rhonchi, Wheezes, Respiratory Distress - Cardiovascular Exam Cardiovascular Exam: REGULAR RHYTHM, +S1, +S2 Additional comments: (+) PPM in left upper chest wall - GI/Abdominal Exam GI & Abdominal Exam: Soft, Hernia (left inguinal), Normal Bowel Sounds. absent: Firm, Guarding, Rigid, Tenderness, Pulsatile Mass - Extremities Exam Extremities Exam: Normal Inspection, Tenderness. absent: Calf Tenderness, Pedal Edema - Back Exam Back Exam: NORMAL INSPECTION. absent: rash noted - Neurological Exam Neurological Exam: Alert, Awake, Oriented x3 - Psychiatric Exam Psychiatric exam: Normal Affect, Normal Mood - Skin Skin Exam: Dry, Normal Color, Warm Assessment and Plan - Assessment and Plan (Free Text) Assessment: This is a 72 yo [place]inyar[place]-speaking M with PMH of IL, Afib, PVD, CHF, CAD, ACID placement, presenting with worsening shortness of breath & L inguinal hernia without signs of incarceration or obstruction, s/p extubation 2/2 cardiac arrest during cardiac catherization (12/12/17); ROSC obtained after 6 shocks, 2 rounds of Epi and 1 round of bicarb. Second cardiac cath (12/27) was well tolerated and showed no significant stenosis, and medical management as per cardiology. Plan: NSTEMI (non-ST elevated myocardial infarction) CHF exacerbation - BNP: downtrended and stable s/p prior cath - Trops x 3 negative (on admission), recent trops during cardiac arrest elevated; downtrended to 1.5 - continue to keep head of bed elevated @ 45 degrees Imaging: - CXR (12/08): Moderate to severe venous congestion. Moderate loculated left and small right pleural effusion. Prominent consolidative opacification in the left mid to lower lung zone and right lung base. Prominent vascularity in the right paratracheal region. Cardiomegaly. Left-sided pacemaker - Echo: LVEF 30%, LV moderately dilated, mild to moderate concentric LVH, mild left ventricular diastolic dysfunction, systolic function moderately impaired, Moderate pulmonic valvular regurgitation - f/u cardiology for cardiology (Dr. Maddox) clearance for inguinal hernia surgery - As per Dr. Maddox, cardiac catheterization shows L Main: Patent. LAD/Diag: Proximal 30%. L Cx/OM: Patent. RCA: Dominant. Mid 50%. EF: 20% by ECHO - medical management as per Dr. Maddox: continue asa 81 mg PO daily, start Losartan 25 mg PO daily, start Metoprolol 12.5 mg PO BID Current management: - hold home med: spironolactone 25 mg PO daily (held / BP) - Pt to continue with Lasix 40 mg PO BID - amiodarone 200 PO daily d/c 12/27 - Crestor 5mg po HS - CM/SW to arrange for possible discharge to [facility] in the morning (12/29) - PT eval/treat Pneumonia - leukocytosis is resolved - CXR (12/26) shows improving lower lobe infiltrates, stable bilateral pleural e ffusions; continue with current lasix regimen. - CXR (12/29): worsening left lower lobe infiltrate - CXR (01/01): atelectasis inferior lung zone. No acute infiltrate bilaterally. Trace right pleural effusion identified. Cardiomegaly is stable. - continue cefepime IVP - BCx x2 is prelim negative x 48 hours - Pulmonology consulted, Dr. Casiano, recs appreciated - f/u chest ct without contrast UTI, resolved - repeat urine cultures on 12/20 and 12/24 and 12/29 are negative - UTI on UA (12/25), with recurrence of pyuria on 12/29 - pt remains remains afebrile, not tachycardic - Continue with Cefepime 1gm IVPB q12 (started 12/19) - Urine Cx (12/17): Morg Marganii sensitive to Cefepime. - Trachasp Cx (12/17): Klebsiella Oxytoca sensitive to Cefepime - continue to monitor Diarrhea, nonbloody, nonmelenic, nongreasy; likely secondary to IV antibiotics - pt is hemodynamically stable - H/H is stable - florastor 250 mg PO daily - c.diff toxin a/b is normal - will repeat c-diff toxin a/b as - f/u results Hyperkalemia; resolved - likely medication side effect - potassium of 5.3 was likely due to starting Losartan 25 mg BID on 12/[address] Maddox - Pt asymptomatic - treated with kayexalate 15 mg PO once - continue to hold Losartan - resolved on cmp 12/29 after holding losartan Inguinal Hernia - CT abdomen/pelvis (12/08): L inguinal hernia with no evidence of incarceration or obstruction - Vascular surgery (Dr. Fox) recs - pt will obtain surgery as outpatient - Cardio (Dr. Maddox) recs (cardiac clearance for surgery) - Cardiac cath results as mentioned above; medical management as per Dr. Maddox above - pt would like to have hernia repair at another time - will give inguinal hernia support prior to discharge Hx of Atrial Fibrillation - Pt is hemodynamically stable - d/c home medications held s/p cardiac arrest - Digoxin 0.125mg PO daily - coreg 12.5 mg PO daily - amiodarone 200 mg PO daily stopped on 12/27 - c/w Aspirin 81 mg PO daily - No therapeutic anticoagulation at this time due to previous GI bleed Hx of HTN -metoprolol 12.5mg po BID -holding losartan 25mg po daily Hx of CAD - c/w home medications: - Crestor 5 mg PO daily - ASA 81mg PO dailyWill d/c Amiadorone - F/U Dr. Cooper for cardiology as out patient - As per cardiology, pt started on Losartan 25 mg PO daily, Metoprolol 12.5 mg PO BID BPH - flomax .4mg po daily Hypokalemia - resolved - potassium 20 mEq in Dextrose has been discontinued - continue to monitor with AM labs PPX, Diet, Disposition - DVT ppx: Lovenox 40 sc daily - GI: Pepcid 20 mg PO daily - Ambien 5mg po hs for insomnia - HHD diet - PT eval and treat for gait instability/decompensation Dispo: Pt would like to do inguinal hernia repair at another time. Possible discharge to home (as pt is declining [facility]), pending results of chest CT and pulm recs. Pt instructed to follow up with Dr. Addy Cooper EP in 2-3 weeks (Primary structural design engineer). Phone number: [phone]. CM will call the office and set up appointment for patient. Medical follow up in [facility] downstairs. Case discussed and reviewed with attending physician, Dr. Gonzalez All medical management as per Dr. Carlos Simmons PGY-1
--- NOTE | 2018-01-01 16:56 | CP.PCM.PN ---
Subjective - Date & Time of Evaluation Date of Evaluation: 01/01/18 Time of Evaluation: 11:20 - Subjective Subjective: patient seen and examined Complaining of shortness of breath Afebrile No cough CAT scan of the chest showed small bilateral pleural effusion No pneumonic infiltrate Objective - Vital Signs/Intake and Output Vital Signs (last 24 hours): Temp Pulse Resp BP Pulse Ox 97.5 F L 77 20 118/77 96 01/01/18 15:00 01/01/18 15:00 01/01/18 15:00 01/01/18 15:00 01/01/18 15:00 - Medications Medications: Current Medications Acetaminophen (Tylenol 325mg Tab) 650 mg PO Q6 PRN PRN Reason: Pain, Mild (1-3) Last Admin: 12/26/17 06:07 Dose: 650 mg Albuterol/Ipratropium (Duoneb 3 Mg/0.5 Mg (3 Ml) Ud) 3 ml INH RQ6 [facility]EN Last Admin: 01/01/18 13:49 Dose: Not Given Albuterol/Ipratropium (Duoneb 3 Mg/0.5 Mg (3 Ml) Ud) 3 ml INH RQ4 PRN PRN Reason: Shortness of Breath Aspirin (Aspirin Chewable) 81 mg PO DAILY [facility] Last Admin: 01/01/18 10:34 Dose: 81 mg Carvedilol (Coreg) 3.125 mg PO BID [facility] Last Admin: 01/01/18 10:34 Dose: 3.125 mg Enoxaparin Sodium (Lovenox) 40 mg SC DAILY [facility] Last Admin: 01/01/18 10:34 Dose: 40 mg Famotidine (Pepcid) 20 mg PO DAILY [facility] Last Admin: 01/01/18 10:34 Dose: 20 mg Furosemide (Lasix) 40 mg PO BID [facility] Last Admin: 01/01/18 10:36 Dose: 40 mg Cefepime HCl (Maxipime Iv 1 Gm Premix) 1 gm in 50 mls @ 100 mls/hr IVPB Q12H [facility]; Protocol Last Admin: 01/01/18 05:17 Dose: 100 mls/hr Losartan Potassium (Cozaar) 25 mg PO DAILY [facility] Last Admin: 12/28/17 09:50 Dose: 25 mg Rosuvastatin Calcium (Crestor) 5 mg PO HS [facility] Last Admin: 12/31/17 22:24 Dose: 5 mg Saccharomyces Boulardii (Florastor) 250 mg PO DAILY [facility] Last Admin: 01/01/18 10:34 Dose: 250 mg Tamsulosin HCl (Flomax) 0.4 mg PO DAILY [facility] Last Admin: 01/01/18 10:34 Dose: 0.4 mg Zolpidem Tartrate (Ambien) 5 mg PO HS PRN PRN Reason: Insomnia Last Admin: 12/31/17 22:24 Dose: 5 mg - Labs Labs: 01/01/18 07:11 01/01/18 07:11 PT 11.3 SECONDS (9.7-12.2) 12/27/17 06:54 INR 1.0 12/27/17 06:54 APTT 30 SECONDS (21-34) D 12/17/17 06:07 - Head Exam Head Exam: ATRAUMATIC, NORMOCEPHALIC - ENT Exam ENT Exam: Mucous Membranes Moist - Neck Exam Neck Exam: Normal Inspection - Cardiovascular Exam Cardiovascular Exam: REGULAR RHYTHM - GI/Abdominal Exam GI & Abdominal Exam: Soft, Normal Bowel Sounds Assessment and Plan (1) COPD (chronic obstructive pulmonary disease) Assessment & Plan: continue nebulizer treatment stable from pulmonary standpoint Status: Acute (2) Pneumonia Assessment & Plan: resolving pneumonia Status: Acute
--- NOTE | 2018-01-01 17:01 | CT ---
Date of service: 01/01/2018 PROCEDURE: CT Chest without contrast HISTORY: effusion vs pneumonia COMPARISON: Chest CT with contrast 08/15/2016. TECHNIQUE: Contiguous axial images were obtained through the chest without intravenous contrast enhancement. Sagittal and coronal reconstructions were performed. Radiation dose (DLP): 306.51 mGy-cm. This CT exam was performed using one or more of the following dose reduction techniques: Automated exposure control, adjustment of the mA and/or kV according to patient size, and/or use of iterative reconstruction technique. FINDINGS: LUNGS: Limited bilateral basilar dependent atelectasis without acute alveolitis bilaterally. MEDIASTINUM: Unremarkable thoracic aorta. No aneurysm. Cardiomegaly reiterated with bipolar permanent pacemaker/AICD reiterated. Pulmonary artery remains prominent measuring 3.9 cm and greater in caliber than the thoracic aorta suspicious for pulmonary artery hypertension. Clinically correlate further. No significant lymphadenopathy. PLEURA: Trace bilateral pleural effusions identified in the major fissures as well as dependent bilateral lower lobe pleural spaces reflecting either trace residual from prior pleural effusions or minimal recurrence. BONES: No definite acute fracture however there is extensive syndesmophyte formation throughout the thoracolumbar spine with kyphotic thoracic deformity suggestive of possible cysts ankylosing spondylosis or DISH. UPPER ABDOMEN: Bilateral renal cysts. OTHER FINDINGS: None. IMPRESSION: 1. No acute alveolitis bilaterally. Limited bilateral basilar dependent atelectasis identified. 2. Trace residual or recurrent pleural fluid bilaterally in the major fissures and bilateral lower lobe dependent pleural spaces. 3. Marked cardiomegaly with AICD/pacemaker reiterated and coronary artery calcifications. 4. Prominent main pulmonary artery may reflect pulmonary artery hypertension. Right ventricle volume not evaluated due to lack of intravenous contrast. 5. Other lesser findings as discussed above.
[2018-01-01] MEDS: Vancomycin 125 MG/5 ML SOLN (ORAL/RECTAL) PO SCH (22:35)
--- NOTE | 2018-01-01 23:03 | CP.PCM.PN ---
Subjective - Date & Time of Evaluation Date of Evaluation: 01/01/18 Time of Evaluation: 13:10 - Subjective Subjective: Patient seen and examined at bedside and in no acute distress. denies chest pain and dyspnea Physical examination - Additional Findings Additional findings: - Constitutional Appears: Non-toxic, No Acute Distress - Eye Exam Eye Exam: EOMI, Normal appearance - ENT Exam ENT Exam: Mucous Membranes Moist - Neck Exam Neck Exam: Normal Inspection - Respiratory Exam Respiratory Exam: Decreased Breath Sounds (at the bases), Rales (scant at the bases), NORMAL BREATHING PATTERN. absent: Rhonchi, Wheezes, Respiratory Distress - Cardiovascular Exam Cardiovascular Exam: REGULAR RHYTHM, +S1, +S2 - GI/Abdominal Exam GI & Abdominal Exam: Soft, Hernia (left inguinal hernia), Normal Bowel Sounds. absent: Tenderness, Rebound Additional comments: (+) right groin pressure dressing inplace from catheterization; C/D/I, no hematoma, no tenderness, no signs of bleeding or infection - Extremities Exam Extremities Exam: Normal Inspection. absent: Calf Tenderness, Pedal Edema, Tenderness - Back Exam Back Exam: NORMAL INSPECTION - Neurological Exam Neurological Exam: Alert, Awake, Oriented x3 - Psychiatric Exam Psychiatric exam: Normal Affect, Normal Mood - Skin Skin Exam: Dry, Normal Color, Warm Assessment and Plan - Assessment and Plan (Free Text) Assessment: This is a 72 yo Lithuanian-speaking M with PMH of [place], Afib, PVD, CHF, CAD, ACID placement, presenting with worsening shortness of breath & L inguinal hernia without signs of incarceration or obstruction, s/p extubation 2/2 cardiac arrest during cardiac catherization (12/12/17); ROSC obtained after 6 shocks, 2 rounds of Epi and 1 round of bicarb. Second cardiac cath (12/27) was well tolerated and showed no significant stenosis, and medical management as per cardiology. Plan: NSTEMI (non-ST elevated myocardial infarction) CHF exacerbation - BNP: downtrended and stable s/p prior cath - Trops x 3 negative (on admission), recent trops during cardiac arrest elevated; downtrended to 1.5 - continue to keep head of bed elevated @ 45 degrees Imaging: - CXR (12/08): Moderate to severe venous congestion. Moderate loculated left and small right pleural effusion. Prominent consolidative opacification in the left mid to lower lung zone and right lung base. Prominent vascularity in the right paratracheal region. Cardiomegaly. Left-sided pacemaker - Echo: LVEF 30%, LV moderately dilated, mild to moderate concentric LVH, mild left ventricular diastolic dysfunction, systolic function moderately impaired, Moderate pulmonic valvular regurgitation - Catheterization shows L Main: Patent. LAD/Diag: Proximal 30%. L Cx/OM: Patent. RCA: Dominant. Mid 50%. EF: 20% by ECHO - medical management as per Dr. Maddox: continue asa 81 mg PO daily, start Losartan 25 mg PO daily, start Metoprolol 12.5 mg PO BID Current management: - hold home med: spironolactone 25 mg PO daily (held 05/04 BP) - Pt to continue with Lasix 40 mg PO BID - amiodarone 200 PO daily d/c 12/27 -Crestor 5mg po HS - CM/SW to arrange for possible discharge to [facility] in the morning (12/29) - PT eval/treat - CXR (12/26) shows improving lower lobe infiltrates, stable bilateral pleural effusions; continue with current lasix regimen. Leukocytosis WBC up trending (18.1 on 12/29) repeat UA, urine culture, cxray and blood cultures Hyperkalemia; resolved likely medication side effect - potassium of 5.3 is likely due to starting Losartan 25 mg BID on 12/[address] Maddox - Pt asymptomatic - treated with kayexalate 15 mg PO once - will hold Losartain Wheezing/SOB- improved -likely due to combination of COPD (given smoking history) and CHF exacerbation - continue Duonebs q6h with q4h prn Inguinal Hernia - CT abdomen/pelvis (12/08): L inguinal hernia with no evidence of incarceration or obstruction - Vascular surgery (Dr. Fox) recs - pt will obtain surgery as outpatient - Cardio Moderate to high risk for Inguinal surgery under general anaesthesia Hx of Atrial Fibrillation - Pt is hemodynamically stable - d/c home medications held s/p cardiac arrest - Digoxin 0.125mg PO daily - coreg 12.5 mg PO daily - amiodarone 200 mg PO daily stopped on 12/27 - c/w Aspirin 81 mg PO daily - No therapeutic anticoagulation at this time due to previous GI bleed Hx of HTN -metoprolol 12.5mg po BID -hold losartan 25mg po daily Hx of CAD - c/w home medications: - Crestor 5 mg PO daily - ASA 81mg PO daily - As per cardiology, pt started on Losartan 25 mg PO daily, Metoprolol 12.5 mg PO BID UTI, resolved -repeat urine culture on 12/20 and 12/24 negative - UTI on UA (12/25) - pt remains remains afebrile, not tachycardic - Continue with Cefepime 1gm IVPB q12 (started 12/19) - Urine Cx (12/17): Morg Marganii sensitive to Cefepime. - Trachasp Cx (12/17): Klebsiella Oxytoca sensitive to Cefepime - f/u ID (Dr. Keating) recs - continue to monitor BPH -flomax .4mg po daily Hypokalemia - resolved - potassium 20 mEq in Dextrose has been discontinued - monitor with AM labs PPX, Diet, Disposition - DVT ppx: Lovenox 40 sc daily - GI: Pepcid 20 mg PO daily - Ambien 5mg po hs for insomnia - HHD diet - PT eval and treat for gait instability/decompensation Objective - Vital Signs/Intake and Output Vital Signs (last 24 hours): Temp Pulse Resp BP Pulse Ox 97.5 F L 77 20 118/77 96 01/01/18 15:00 01/01/18 15:00 01/01/18 15:00 01/01/18 18:20 01/01/18 15:00 - Medications Medications: Current Medications Acetaminophen (Tylenol 325mg Tab) 650 mg PO Q6 PRN PRN Reason: Pain, Mild (1-3) Last Admin: 12/26/17 06:07 Dose: 650 mg Albuterol/Ipratropium (Duoneb 3 Mg/0.5 Mg (3 Ml) Ud) 3 ml INH RQ6 ASPEN Last Admin: 01/01/18 19:48 Dose: Not Given Albuterol/Ipratropium (Duoneb 3 Mg/0.5 Mg (3 Ml) Ud) 3 ml INH RQ4 PRN PRN Reason: Shortness of Breath Aspirin (Aspirin Chewable) 81 mg PO DAILY [facility] Last Admin: 01/01/18 10:34 Dose: 81 mg Carvedilol (Coreg) 3.125 mg PO BID [facility] Last Admin: 01/01/18 18:20 Dose: 3.125 mg Enoxaparin Sodium (Lovenox) 40 mg SC DAILY [facility] Last Admin: 01/01/18 10:34 Dose: 40 mg Famotidine (Pepcid) 20 mg PO DAILY [facility] Last Admin: 01/01/18 10:34 Dose: 20 mg Furosemide (Lasix) 40 mg PO BID [facility] Last Admin: 01/01/18 18:20 Dose: 40 mg Losartan Potassium (Cozaar) 25 mg PO DAILY [facility] Last Admin: 12/28/17 09:50 Dose: 25 mg Rosuvastatin Calcium (Crestor) 5 mg PO HS [facility] Last Admin: 01/01/18 22:35 Dose: 5 mg Saccharomyces Boulardii (Florastor) 250 mg PO DAILY [facility] Last Admin: 01/01/18 10:34 Dose: 250 mg Tamsulosin HCl (Flomax) 0.4 mg PO DAILY [facility] Last Admin: 01/01/18 10:34 Dose: 0.4 mg Vancomycin HCl (Vancocin (Oral Or Rectal Use)) 250 mg PO QID [facility]; Protocol Last Admin: 01/01/18 22:35 Dose: 250 mg Zolpidem Tartrate (Ambien) 5 mg PO HS PRN PRN Reason: Insomnia Last Admin: 01/01/18 22:35 Dose: 5 mg - Labs Labs: 01/01/18 07:11 01/01/18 07:11 PT 11.3 SECONDS (9.7-12.2) 12/27/17 06:54 INR 1.0 12/27/17 06:54 APTT 30 SECONDS (21-34) D 12/17/17 06:07
[2018-01-02] MEDS: Albuterol-Ipratrop 3 mg / 0.5 (3 ml) UD INH SCH ×3 (01:06→20:13)
[2018-01-02] MEDS: Saccharomyces Boulardi 250 mg Cap PO SCH (09:53)
[2018-01-02] MEDS: Enoxaparin 40 mg Syringe SC SCH (09:54)
[2018-01-02] MEDS: Vancomycin 125 MG/5 ML SOLN (ORAL/RECTAL) PO SCH ×4 (09:54→21:25)
--- NOTE | 2018-01-02 13:32 | CP.PCM.DIS ---
Provider - Provider Date of Admission: 12/08/17 19:51 Attending physician: Warren Gonzalez Jr, MD Time Spent in preparation of Discharge (in minutes): 35 Diagnosis - Discharge Diagnosis (1) CHF exacerbation Status: Acute (2) NSTEMI (non-ST elevated myocardial infarction) Status: Acute (3) UTI (urinary tract infection) Status: Resolved (4) BPH (benign prostatic hyperplasia) Status: Chronic (5) CAD (coronary artery disease) Status: Chronic (6) Chronic atrial fibrillation Status: Chronic (7) HTN (hypertension) Status: Chronic (8) Inguinal hernia, left Status: Chronic (9) Pneumonia Status: Resolved (10) Clostridium difficile diarrhea Status: Acute Hospital Course - Lab Results Lab Results: Micro Results 12/29/17 18:23 Blood Blood Culture - Preliminary NO GROWTH AFTER 3 DAYS 12/29/17 18:23 Blood Blood Culture - Preliminary NO GROWTH AFTER 3 DAYS 12/29/17 18:23 Urine,Clean Catch Urine Culture - Final No Growth (<1,000 CFU/ML) 12/24/17 22:12 Urine Urine Culture - Final No Growth (<1,000 CFU/ML) 12/20/17 22:45 Urine Urine Culture - Final No Growth (<1,000 CFU/ML) 12/17/17 12:03 Blood Blood Culture - Final NO GROWTH AFTER 5 DAYS 12/17/17 12:03 Blood Gram Stain - Final TEST NOT PERFORMED 12/17/17 12:03 Blood Blood Culture - Final NO GROWTH AFTER 5 DAYS 12/17/17 12:03 Blood Gram Stain - Final TEST NOT PERFORMED 12/19/17 15:28 Naris MRSA Culture - Final MRSA NOT DETECTED 12/17/17 12:03 Trachasp Gram Stain - Final 12/17/17 12:03 Trachasp Sputum Culture - Final Klebsiella Oxytoca 12/17/17 12:03 Urine,Mitchell Urine Culture - Final Morg Morganii Ss Morganii 12/17/17 14:29 Femer Right Catheter Tip Culture - Final No growth. 12/12/17 12:44 Naris MRSA Culture (Admit) - Final MRSA NOT DETECTED 12/12/17 16:11 Urine,Catheterized Urine Culture - Final No Growth (<1,000 CFU/ML) Most Recent Lab Values WBC 8.3 K/uL (4.8-10.8) 01/01/18 07:11 RBC 3.50 Mil/uL (4.40-5.90) L 01/01/18 07:11 Hgb 10.4 g/dL (12.0-18.0) L 01/01/18 07:11 Hct 31.6 % (35.0-51.0) L 01/01/18 07:11 MCV 90.4 fL (80.0-94.0) 01/01/18 07:11 MCH 29.8 pg (27.0-31.0) 01/01/18 07:11 MCHC 32.9 g/dL (33.0-37.0) L 01/01/18 07:11 RDW 14.5 % (11.5-14.5) 01/01/18 07:11 Plt Count 303 K/uL (130-400) 01/01/18 07:11 MPV 9.6 fL (7.2-11.7) 01/01/18 07:11 Neut % (Auto) 73.7 % (50.0-75.0) 01/01/18 07:11 Lymph % (Auto) 11.8 % (20.0-40.0) L 01/01/18 07:11 Haskell % (Auto) 11.3 % (0.0-10.0) H 01/01/18 07:11 Eos % (Auto) 1.8 % (0.0-4.0) 01/01/18 07:11 Baso % (Auto) 1.4 % (0.0-2.0) 01/01/18 07:11 Neut # (Auto) 6.1 K/uL (1.8-7.0) 01/01/18 07:11 Lymph # (Auto) 1.0 K/uL (1.0-4.3) 01/01/18 07:11 Haskell # (Auto) 0.9 K/uL (0.0-0.8) H 01/01/18 07:11 Eos # (Auto) 0.2 K/uL (0.0-0.7) 01/01/18 07:11 Baso # (Auto) 0.1 K/uL (0.0-0.2) 01/01/18 07:11 Neutrophils % (Manual) 91 % (50-75) H 12/29/17 06:46 Band Neutrophils % 1 % (0-2) 12/28/17 07:52 Lymphocytes % (Manual) 3 % (20-40) L 12/29/17 06:46 Monocytes % (Manual) 6 % (0-10) 12/29/17 06:46 Eosinophils % (Manual) 1 % (0-4) 12/27/17 06:54 Basophils % (Manual) 1 % (0-2) 12/14/17 06:12 Metamyelocytes % 1 % (0-0) H 12/20/17 10:40 Platelet Estimate Normal (NORMAL) 12/29/17 06:46 Large Platelets Present 12/29/17 06:46 RBC Morphology Normal 12/28/17 07:52 Hypochromasia (manual) Slight 12/27/17 06:54 Poikilocytosis (manual Slight 12/27/17 06:54 Basophilic Stippling Slight 12/25/17 08:00 Anisocytosis (manual) Slight 12/29/17 06:46 Microcytosis (manual) Slight 12/27/17 06:54 Target Cells Slight 12/25/17 08:00 Ovalocytes Slight 12/29/17 06:46 PT 11.3 SECONDS (9.7-12.2) 12/27/17 06:54 INR 1.0 12/27/17 06:54 APTT 30 SECONDS (21-34) D 12/17/17 06:07 Puncture Site R rad 12/18/17 04:57 pCO2 43 mm/Hg (35-45) 12/18/17 04:57 pO2 86 mm/Hg (80-100) 12/18/17 04:57 HCO3 32.8 mmol/L (21-28) H 12/18/17 04:57 ABG pH 7.51 (7.35-7.45) H 12/18/17 04:57 ABG Total CO2 35.6 mmol/L (22-28) H 12/18/17 04:57 ABG O2 Saturation 97.9 % (95-98) 12/18/17 04:57 ABG Base Excess 10.1 mmol/L (-2.0-3.0) H 12/18/17 04:57 ABG Hemoglobin 12.7 g/dL (11.7-17.4) 12/18/17 04:57 ABG Carboxyhemoglobin 1.5 % (0.5-1.5) 12/18/17 04:57 POC ABG HHb (Measured) 2.0 % (0.0-5.0) 12/18/17 04:57 ABG Methemoglobin 1.0 % (0.0-3.0) 12/18/17 04:57 Maicol Test Pos 12/18/17 04:57 ABG Potassium 3.8 mmol/L (3.6-5.2) 12/17/17 05:45 A-a O2 Difference 163.0 mm/Hg 12/18/17 04:57 Respiratory Index 1.6 12/18/17 04:57 Hgb O2 Saturation 95.5 % (95.0-98.0) 12/18/17 04:57 Sodium 151.0 mmol/l (132-148) H 12/17/17 05:45 Chloride 118.0 mmol/L (98-107) H 12/17/17 05:45 Glucose 197 mg/dl (75-110) H 12/17/17 05:45 Lactate 1.4 mmol/L (0.7-2.1) 12/17/17 05:45 Liter Flow 10.0 12/12/17 11:50 Vent Mode Prvc 12/18/17 04:57 Mechanical Rate 16 12/18/17 04:57 FiO2 45.0 % 12/18/17 04:57 Tidal Volume 500 12/18/17 04:57 PEEP 5 12/18/17 04:57 Sodium 137 mmol/L (132-148) 01/01/18 07:11 Potassium 5.2 mmol/L (3.6-5.2) 01/01/18 07:11 Chloride 102 mmol/L (98-107) 01/01/18 07:11 Carbon Dioxide 29 mmol/L (22-30) 01/01/18 07:11 Anion Gap 12 (10-20) 01/01/18 07:11 BUN 49 mg/dL (9-20) H 01/01/18 07:11 Creatinine 1.2 mg/dL (0.8-1.5) 01/01/18 07:11 Est GFR ( Amer) > 60 01/01/18 07:11 Est GFR (Non-Af Amer) 60 01/01/18 07:11 POC Glucose (mg/dL) 79 mg/dL (65-110) 01/02/18 11:30 Random Glucose 77 mg/dL (75-110) 01/01/18 07:11 Lactic Acid 1.5 mmol/L (0.7-2.1) 12/17/17 11:45 Calcium 8.7 mg/dl (8.6-10.4) 01/01/18 07:11 Phosphorus 3.6 mg/dL (2.5-4.5) 01/01/18 07:11 Magnesium 1.9 mg/dL (1.6-2.3) 01/01/18 07:11 Total Bilirubin 0.7 mg/dL (0.2-1.3) 01/01/18 07:11 AST 40 U/L (17-59) 01/01/18 07:11 ALT 47 U/L (21-72) 01/01/18 07:11 Alkaline Phosphatase 69 U/L (38-126) 01/01/18 07:11 Total Creatine Kinase 232 U/L (55-170) H 12/12/17 16:11 CK-MB (Mass) 8.73 ng/mL (0.0-3.38) H 12/12/17 16:11 Troponin I 1.5000 ng/mL (0.00-0.120) H* 12/13/17 06:17 NT-Pro-B Natriuret Pep 8140 pg/mL (0-900) H 12/19/17 06:33 Total Protein 6.6 g/dL (6.3-8.3) 01/01/18 07:11 Albumin 3.1 g/dL (3.5-5.0) L 01/01/18 07:11 Globulin 3.4 gm/dL (2.2-3.9) 01/01/18 07:11 Albumin/Globulin Ratio 0.9 (1.0-2.1) L 01/01/18 07:11 Triglycerides 63 mg/dL (0-149) 12/09/17 07:49 Cholesterol 137 mg/dL (0-199) 12/09/17 07:49 LDL Cholesterol Direct 79 mg/dL (0-129) 12/09/17 07:49 HDL Cholesterol 42 mg/dL (30-70) 12/09/17 07:49 TSH 3rd Generation 1.32 mIU/L (0.46-4.68) 12/09/17 07:49 Arterial Blood Potassium 3.8 mmol/L (3.6-5.2) 12/17/17 05:45 Urine Color Yellow (YELLOW) 12/29/17 18:23 Urine Clarity Clear (Clear) 12/29/17 18:23 Urine pH 5.0 (5.0-8.0) 12/29/17 18:23 Ur Specific Merlin 1.012 (1.003-1.030) 12/29/17 18:23 Urine Protein 1+ mg/dL (NEGATIVE) H 12/29/17 18:23 Urine Glucose (UA) Normal mg/dL (Normal) 12/29/17 18:23 Urine Ketones Negative mg/dL (NEGATIVE) 12/29/17 18:23 Urine Blood 1+ (NEGATIVE) H 12/29/17 18:23 Urine Nitrate Negative (NEGATIVE) 12/29/17 18:23 Urine Bilirubin Negative (NEGATIVE) 12/29/17 18:23 Urine Urobilinogen Normal mg/dL (0.2-1.0) 12/29/17 18:23 Ur Leukocyte Esterase Trace Ana/uL (Negative) 12/29/17 18:23 Urine WBC (Auto) 22 /hpf (0-5) H 12/29/17 18:23 Urine RBC (Auto) 2 /hpf (0-3) 12/29/17 18:23 Ur Squamous Epith Cells 1 /hpf (0-5) 12/29/17 18:23 Urine Bacteria Rare (<OCC) 12/29/17 18:23 Hyaline Casts 3-5 /lpf (0-2) H 12/17/17 12:03 Vancomycin Trough 25.7 ug/mL (5.0-10.0) H 12/19/17 06:33 Digoxin 0.9 ng/mL (0.8-2.0) 12/08/17 16:36 Digitoxin None detected ng/mL 12/09/17 07:46 C. difficile Ag & Toxin Positive (NEGATIVE) H 01/01/18 18:47 - Hospital Course Hospital Course: On admission: 72 Thai male w/ PMHx of [place], Afib, PVD, CHF, CAD, ACID, presents to ED w/ shortness of breath & genital swelling. Patient that the symptoms have been ongoing for several years and the SOB is greater on exertion. Patient denies chest pain, constipation, diarrhea, trouble voiding. Patient refused to answer any further questions and was not fully cooperative during the interview. BNP: 6140, Trops negative x3. CXR shows Moderate to severe venous congestion. Moderate loculated left and small right pleural effusion. Prominent consolidative opacification in the left mid to lower lung zone and right lung base. Prominent vascularity in the right paratracheal region. Cardiomegaly. Left-sided pacemaker. Abdominal/pelvic CT shows left inguinal hernia containing small and large bowel without signs of incarceration or obstruction. Hospital course: Pt started on Lasix 40 mg IVP BID. Home spironolactone, Digoxin, ASA, coreg, lisinopril , crestor was restarted. No anticoagulation for afib due to history of GI bleed. Echocardiogram ordered. Digoxin level was 0.9 Surgery, Dr. Fox, consulted for left sided inguinal hernia. Surgery recommended cardiac clearance for hernia repair, pain control and monitoring bowel function. Dr. Dusty russ, cardiology, consulted for cardiac clearance for hernia repair. Echo: LVEF 30%, LV moderately dilated, mild to moderate concentric LVH, mild left ventricular diastolic dysfunction, sytolic function moderaly impared, Moderate pulmonic valvular regurgitation. Pt had nuclear stress test on 12/11, Abnormal pharmacologic stress test with plan to have cardiac cath. Hernia repair surgery is moderate-high risk for pt as per cardiology. On 12/12, Patient was taken for cardiac cath. Upon administration of contrast patient immediately developed hypotension. Code Blue was subsequently called. ACLS procol was initiated. Patient 6 shocks, 2 rounds epinephrine and 1 round of bicarbonate and ROSC was achieved. patient was intubated and Levophed and Dopamine was initiated as well as amiodarone drip (due to vfib arrest) and cocktail of solumedrol 125mg PO once, pepcid and benadryl. ICU consulted for patient acute condition. Positive troponin: 0.6560-->1.6300-->1.5000; placed on heparin drip for treatment of NSTEMI. Any plans for surgery placed on hold due to instability. On 12/13, pt with Oliguric CANDIDA, starting fluids and albumin drip. Echo 12/13 notable for EF 15-20%, severe impairment of LV systolic function, mild MR/TR/ME and Pulm HTN, Pacer lead in RV On 12/17, pt noted to be febrile. Started on broad spectrum van and zosyn. Allen cultured, septic work up. 12/18, pt extubated. BC: No growth after 24 hours UC: Niles Samson Sputum culture: Klebsiella Oxytoca. Abx switched to Cefepime 1gm IV Q12H 12/20, pt downgraded to telemetry. 12/25, UTI noted on UA. Continuing cefepime. CXR (12/26) shows improving lower lobe infiltrates, stable bilateral pleural effusions; continue with current lasix regimen. 12/27, As per Dr. Maddox, cardiac catheterization today shows L Main: Patent. LAD/Diag: Proximal 30%. L Cx/OM: Patent. RCA: Dominant. Mid 50%. EF: 20% by ECHO. Medical management as per Dr. Maddox: continue asa 81 mg PO daily, started Losartan 25 mg PO daily, started Metoprolol 12.5 mg PO BID. d/c amiodarone. Follow up with Dr. Addy Cooper EP cardio in 2-3 weeks (primary obstetrician). 12/28, Hyperkalemia; likely medication side effect. potassium of 5.3 is likely due to starting Losartan 25 mg BID on 12/[address] Maddox. Pt asymptomatic. treated with kayexalate 15 mg PO once. will hold Losartan 12/29, Discharge to [facility] held due to WBC up trending, repeat UA, urine culture, cxray and blood cultures. CXR shows worsening LLL infiltrate.Continuing cefepime. Pulmonology, Dr. menard, consulted. Chest CT ordered. Chest CT showed small bilateral effusions, no pneuomonic infiltrate. 12/31, pt is complaining of diarrhea. Cdiff toxin a/b is negative x1. Repeat is positive. Pt started on Vancomycin 250 mg QID. Pt is refusing JACQUELINE and would like to be discharged to home. Pt refuses hernia repair surgery at this time, and would like to revisit the idea with his PMD in the future. F/u appointment arranged with Dr. Lopez for 01/10 by CM/SW. This is a summary of the hospital course, please see chart for full details. Discharge Exam - Head Exam Head Exam: ATRAUMATIC, NORMOCEPHALIC Discharge Plan - Discharge Medications Prescriptions: Carvedilol [Coreg] 3.125 mg PO BID 30 Days #60 tab Furosemide [Lasix] 40 mg PO ONCE 30 Days #30 tab Tamsulosin [Flomax] 0.4 mg PO DAILY 30 Days #30 cap Vancomycin [Vancocin (ORAL OR RECTAL USE)] 250 mg PO QID 9 Days soln Zolpidem [Ambien] 5 mg PO HS PRN #30 tab PRN Reason: Insomnia - Follow Up Plan Condition: GUARDED Disposition: HOME/ ROUTINE Instructions: Heart Healthy Diet, Atrial Fibrillation (DC), Heart Failure, A dult (DC), Clostridium difficile, Chest Pain (DC), Heart Failure With Reduced Ejection Fraction, Automatic Cardioverter Defibrillator Implantation (DC) Additional Instructions: Patient is medically stable and safe for discharge home. Patient should continue ONLY these home medications as previously prescribed: Aspirin 81 mg PO daily, Spironolactone 25 mg PO daily, Lisinopril 5 mg PO daily, Lipitor 10 mg PO daily. In addition to the above medications, patient should start: Lasix 40 mg PO once daily, Metoprolol 12.5 mg PO once in the morning and once in the evening, Vancomycin 250 mg four times a day, Tamsulosin 0.4 mg PO once daily. Patient instructed to wear the hernia support as needed for pain. Patient instructed to follow up with Dr. Gonzalez within 1 week, and his obstetrician, Dr. Slade Cooper within 2 weeks. Pt has appointment scheduled by CM/SW. Patient instructed to follow up with Dr. Gonzalez to discuss any further management of inguinal hernia repair. If you develop fever unresponsive to Tylenol, blood in the stool, or worsening chest pain/sob please head to the nearest Emergency Department for evaluation. Instructions explained to the patient via italian school program director ([employer]), who understands and agrees with discharge plan. Referrals: Warren Gonzalez Jr., MD [Medical Doctor] - Addy Cooper MD [Medical Doctor] -
[2018-01-02 13:53] LABS: BASO # 0.1 K/uL (0.0-0.2); BASO % 1.2 % (0.0-2.0); EOS # 0.1 K/uL (0.0-0.7); EOS % 1.7 % (0.0-4.0); HEMOGLOBIN 10.4 g/dL (12.0-18.0); LYMPH # 0.8 K/uL (1.0-4.3); LYMPH % 9.8 % (20.0-40.0); MEAN CELL VOLUME 91.1 fL (80.0-94.0); MEAN CORPUSCULAR HEMOGLOBIN 30.1 pg (27.0-31.0); MEAN CORPUSCULAR HGB CONC 33.1 g/dL (33.0-37.0); MEAN PLATELET VOLUME 9.3 fL (7.2-11.7); MONO # 0.9 K/uL (0.0-0.8); MONO % 12.2 % (0.0-10.0); NEUT # 5.8 K/uL (1.8-7.0); NEUT % 75.1 % (50.0-75.0); PLATELET COUNT 281 K/uL (130-400); RBC 3.45 Mil/uL (4.40-5.90); RED CELL DISTRIBUTION WIDTH 14.7 % (11.5-14.5); WHITE BLOOD COUNT 7.7 K/uL (4.8-10.8)
[2018-01-02 14:27] LABS: ALB/GLOB RATIO 1.1 (1.0-2.1); ALBUMIN 3.3 g/dL (3.5-5.0); ALT/SGPT 52 U/L (21-72); AST/SGOT 27 U/L (17-59); BLOOD UREA NITROGEN 47 mg/dL (9-20); GFR NON-AFRICAN AMERICAN 54
[2018-01-02 14:44] LABS: BANDS 1 % (0-2); EOSINOPHIL 1 % (0-4); LYMPHOCYTE 8 % (20-40); MONOCYTE 5 % (0-10); NEUTROPHIL 85 % (50-75); TOTAL CELLS COUNTED 100
[2018-01-02 14:46] LABS: HYPOCHROMIC SLIGHT; PLATELET ESTIMATE NORMAL (NORMAL); POLYCHROMIC SLIGHT
--- NOTE | 2018-01-02 15:19 | CP.PCM.PN ---
Subjective - Date & Time of Evaluation Date of Evaluation: 01/02/18 Time of Evaluation: 10:00 - Subjective Subjective: events noted for rehab placement Objective - Vital Signs/Intake and Output Vital Signs (last 24 hours): Temp Pulse Resp BP Pulse Ox 98.0 F 80 20 119/68 97 01/02/18 07:00 01/02/18 09:53 01/02/18 07:00 01/02/18 09:53 01/02/18 07:00 Intake and Output: 01/02/18 01/02/18 06:59 18:59 Intake Total 400 Balance 400 - Medications Medications: Current Medications Acetaminophen (Tylenol 325mg Tab) 650 mg PO Q6 PRN PRN Reason: Pain, Mild (1-3) Last Admin: 12/26/17 06:07 Dose: 650 mg Albuterol/Ipratropium (Duoneb 3 Mg/0.5 Mg (3 Ml) Ud) 3 ml INH RQ6 ASPEN Last Admin: 01/02/18 07:17 Dose: Not Given Albuterol/Ipratropium (Duoneb 3 Mg/0.5 Mg (3 Ml) Ud) 3 ml INH RQ4 PRN PRN Reason: Shortness of Breath Aspirin (Aspirin Chewable) 81 mg PO DAILY [facility] Last Admin: 01/02/18 09:54 Dose: 81 mg Carvedilol (Coreg) 3.125 mg PO BID [facility] Last Admin: 01/02/18 09:54 Dose: 3.125 mg Enoxaparin Sodium (Lovenox) 40 mg SC DAILY [facility] Last Admin: 01/02/18 09:54 Dose: 40 mg Famotidine (Pepcid) 20 mg PO DAILY [facility] Last Admin: 01/02/18 09:54 Dose: 20 mg Furosemide (Lasix) 40 mg PO BID [facility] Last Admin: 01/02/18 09:53 Dose: 40 mg Losartan Potassium (Cozaar) 25 mg PO DAILY [facility] Last Admin: 12/28/17 09:50 Dose: 25 mg Rosuvastatin Calcium (Crestor) 5 mg PO HS [facility] Last Admin: 01/01/18 22:35 Dose: 5 mg Saccharomyces Boulardii (Florastor) 250 mg PO DAILY [facility] Last Admin: 01/02/18 09:53 Dose: 250 mg Tamsulosin HCl (Flomax) 0.4 mg PO DAILY [facility] Last Admin: 01/02/18 09:53 Dose: 0.4 mg Vancomycin HCl (Vancocin (Oral Or Rectal Use)) 250 mg PO QID [facility]; Protocol Last Admin: 01/02/18 14:19 Dose: 250 mg Zolpidem Tartrate (Ambien) 5 mg PO HS PRN PRN Reason: Insomnia Last Admin: 01/01/18 22:35 Dose: 5 mg - Labs Labs: 01/02/18 13:47 01/02/18 13:47 PT 11.3 SECONDS (9.7-12.2) 12/27/17 06:54 INR 1.0 12/27/17 06:54 APTT 30 SECONDS (21-34) D 12/17/17 06:07 - Constitutional Appears: Non-toxic, Chronically Ill - Head Exam Head Exam: NORMOCEPHALIC - Eye Exam Eye Exam: absent: Scleral icterus - ENT Exam ENT Exam: Mucous Membranes Dry - Neck Exam Neck Exam: absent: Lymphadenopathy - Respiratory Exam Respiratory Exam: Decreased Breath Sounds - Cardiovascular Exam Cardiovascular Exam: REGULAR RHYTHM - GI/Abdominal Exam GI & Abdominal Exam: Distended Assessment and Plan (1) CHF exacerbation Status: Acute (2) Cardiac arrest Status: Acute (3) Fever Status: Acute
--- NOTE | 2018-01-02 22:29 | CP.PCM.PN ---
Subjective - Date & Time of Evaluation Date of Evaluation: 01/02/18 Time of Evaluation: 09:30 - Subjective Subjective: Patient seen and examined at bedside and in no acute distress. denies chest pain and dyspnea Physical examination - Additional Findings Additional findings: - Constitutional Appears: Non-toxic, No Acute Distress - Eye Exam Eye Exam: EOMI, Normal appearance - ENT Exam ENT Exam: Mucous Membranes Moist - Neck Exam Neck Exam: Normal Inspection - Respiratory Exam Respiratory Exam: Decreased Breath Sounds (at the bases), Rales (scant at the bases), NORMAL BREATHING PATTERN. absent: Rhonchi, Wheezes, Respiratory Distress - Cardiovascular Exam Cardiovascular Exam: REGULAR RHYTHM, +S1, +S2 - GI/Abdominal Exam GI & Abdominal Exam: Soft, Hernia (left inguinal hernia), Normal Bowel Sounds. absent: Tenderness, Rebound Additional comments: (+) right groin pressure dressing inplace from catheterization; C/D/I, no hematoma, no tenderness, no signs of bleeding or infection - Extremities Exam Extremities Exam: Normal Inspection. absent: Calf Tenderness, Pedal Edema, Tenderness - Back Exam Back Exam: NORMAL INSPECTION - Neurological Exam Neurological Exam: Alert, Awake, Oriented x3 - Psychiatric Exam Psychiatric exam: Normal Affect, Normal Mood - Skin Skin Exam: Dry, Normal Color, Warm Assessment and Plan - Assessment and Plan (Free Text) Assessment: This is a 72 yo Romanian-speaking M with PMH of [place], Afib, PVD, CHF, CAD, ACID placement, presenting with worsening shortness of breath & L inguinal hernia without signs of incarceration or obstruction, s/p extubation 2/2 cardiac arrest during cardiac catherization (12/12/17); ROSC obtained after 6 shocks, 2 rounds of Epi and 1 round of bicarb. Second cardiac cath (12/27) was well tolerated and showed no significant stenosis, and medical management as per cardiology. Plan: NSTEMI (non-ST elevated myocardial infarction) CHF exacerbation - BNP: downtrended and stable s/p prior cath - Trops x 3 negative (on admission), recent trops during cardiac arrest elevated; downtrended to 1.5 - continue to keep head of bed elevated @ 45 degrees Imaging: - CXR (12/08): Moderate to severe venous congestion. Moderate loculated left and small right pleural effusion. Prominent consolidative opacification in the left mid to lower lung zone and right lung base. Prominent vascularity in the right paratracheal region. Cardiomegaly. Left-sided pacemaker - Echo: LVEF 30%, LV moderately dilated, mild to moderate concentric LVH, mild left ventricular diastolic dysfunction, systolic function moderately impaired, Moderate pulmonic valvular regurgitation - Catheterization shows L Main: Patent. LAD/Diag: Proximal 30%. L Cx/OM: Patent. RCA: Dominant. Mid 50%. EF: 20% by ECHO - medical management as per Dr. Maddox: continue asa 81 mg PO daily, start Losartan 25 mg PO daily, start Metoprolol 12.5 mg PO BID Current management: - hold home med: spironolactone 25 mg PO daily (held 05/04 BP) - Pt to continue with Lasix 40 mg PO BID - amiodarone 200 PO daily d/c 12/27 -Crestor 5mg po HS - CM/SW to arrange for possible discharge to [facility] in the morning (12/29) - PT eval/treat - CXR (12/26) shows improving lower lobe infiltrates, stable bilateral pleural effusions; continue with current lasix regimen. Leukocytosis WBC up trending (18.1 on 12/29) repeat UA, urine culture, cxray and blood cultures Hyperkalemia; resolved likely medication side effect - potassium of 5.3 is likely due to starting Losartan 25 mg BID on 12/[address] Maddox - Pt asymptomatic - treated with kayexalate 15 mg PO once - will hold Losartain Wheezing/SOB- improved -likely due to combination of COPD (given smoking history) and CHF exacerbation - continue Duonebs q6h with q4h prn Inguinal Hernia - CT abdomen/pelvis (12/08): L inguinal hernia with no evidence of incarceration or obstruction - Vascular surgery (Dr. Fox) recs - pt will obtain surgery as outpatient - Cardio Moderate to high risk for Inguinal surgery under general anaesthesia Hx of Atrial Fibrillation - Pt is hemodynamically stable - d/c home medications held s/p cardiac arrest - Digoxin 0.125mg PO daily - coreg 12.5 mg PO daily - amiodarone 200 mg PO daily stopped on 12/27 - c/w Aspirin 81 mg PO daily - No therapeutic anticoagulation at this time due to previous GI bleed Hx of HTN -metoprolol 12.5mg po BID -hold losartan 25mg po daily Hx of CAD - c/w home medications: - Crestor 5 mg PO daily - ASA 81mg PO daily - As per cardiology, pt started on Losartan 25 mg PO daily, Metoprolol 12.5 mg PO BID UTI, resolved -repeat urine culture on 12/20 and 12/24 negative - UTI on UA (12/25) - pt remains remains afebrile, not tachycardic - Continue with Cefepime 1gm IVPB q12 (started 12/19) - Urine Cx (12/17): Morg Shabnamanii sensitive to Cefepime. - Trachasp Cx (12/17): Klebsiella Oxytoca sensitive to Cefepime - f/u ID (Dr. Keating) recs - continue to monitor BPH -flomax .4mg po daily Hypokalemia - resolved - potassium 20 mEq in Dextrose has been discontinued - monitor with AM labs PPX, Diet, Disposition - DVT ppx: Lovenox 40 sc daily - GI: Pepcid 20 mg PO daily - Ambien 5mg po hs for insomnia - HHD diet - PT eval and treat for gait instability/decompensation Objective - Vital Signs/Intake and Output Vital Signs (last 24 hours): Temp Pulse Resp BP Pulse Ox 97.6 F 84 20 162/77 H 96 01/02/18 15:10 01/02/18 15:10 01/02/18 15:10 01/02/18 17:54 01/02/18 15:10 Intake and Output: 01/02/18 01/03/18 18:59 06:59 Intake Total 400 Balance 400 - Medications Medications: Current Medications Acetaminophen (Tylenol 325mg Tab) 650 mg PO Q6 PRN PRN Reason: Pain, Mild (1-3) Last Admin: 12/26/17 06:07 Dose: 650 mg Albuterol/Ipratropium (Duoneb 3 Mg/0.5 Mg (3 Ml) Ud) 3 ml INH RQ6 ASPEN Last Admin: 01/02/18 20:13 Dose: Not Given Albuterol/Ipratropium (Duoneb 3 Mg/0.5 Mg (3 Ml) Ud) 3 ml INH RQ4 PRN PRN Reason: Shortness of Breath Aspirin (Aspirin Chewable) 81 mg PO DAILY [facility] Last Admin: 01/02/18 09:54 Dose: 81 mg Carvedilol (Coreg) 3.125 mg PO BID [facility] Last Admin: 01/02/18 17:54 Dose: 3.125 mg Enoxaparin Sodium (Lovenox) 40 mg SC DAILY [facility] Last Admin: 01/02/18 09:54 Dose: 40 mg Famotidine (Pepcid) 20 mg PO DAILY [facility] Last Admin: 01/02/18 09:54 Dose: 20 mg Furosemide (Lasix) 40 mg PO BID [facility] Last Admin: 01/02/18 17:54 Dose: 40 mg Losartan Potassium (Cozaar) 25 mg PO DAILY [facility] Last Admin: 12/28/17 09:50 Dose: 25 mg Rosuvastatin Calcium (Crestor) 5 mg PO HS [facility] Last Admin: 01/02/18 21:25 Dose: 5 mg Saccharomyces Boulardii (Florastor) 250 mg PO DAILY [facility] Last Admin: 01/02/18 09:53 Dose: 250 mg Tamsulosin HCl (Flomax) 0.4 mg PO DAILY [facility] Last Admin: 01/02/18 09:53 Dose: 0.4 mg Vancomycin HCl (Vancocin (Oral Or Rectal Use)) 250 mg PO QID [facility]; Protocol Last Admin: 01/02/18 21:25 Dose: 250 mg Zolpidem Tartrate (Ambien) 5 mg PO HS PRN PRN Reason: Insomnia Last Admin: 01/02/18 21:25 Dose: 5 mg - Labs Labs: 01/02/18 13:47 01/02/18 13:47 PT 11.3 SECONDS (9.7-12.2) 12/27/17 06:54 INR 1.0 12/27/17 06:54 APTT 30 SECONDS (21-34) D 12/17/17 06:07
[2018-01-03] MEDS: Albuterol-Ipratrop 3 mg / 0.5 (3 ml) UD INH SCH (02:30)
[2018-01-03 04:45] VITALS: O2SAT 96
[2018-01-03 08:59] VITALS: PULSE 75; RESP 18; TEMP 97.3
[2018-01-03] MEDS: Saccharomyces Boulardi 250 mg Cap PO SCH (09:23)
[2018-01-03] MEDS: Vancomycin 125 MG/5 ML SOLN (ORAL/RECTAL) PO SCH (09:23)
[2018-01-03 09:25] VITALS: BP 116/70
--- NOTE | 2018-01-03 10:46 | IP.NPCORE ---
Heart Failure Core Measure - Heart Failure Ejection Fraction: Less Than 40 % DIDIER Inhibitor Prescribed: Yes Beta-Harley Prescribed: Carvedilol Angiotensin II Receptor Harley Prescribed: No Contraindication/Reason for not providing: ON ARB AnticoagulationTherapy for Atrial Fibrillation/Atrialflutter: No Contraindication/Reason for not providing: NO AFIB Aldosterone Antagonist Prescribed: No Contraindication/Reason for not providing: HAS AICD Hydralazine Nitrate Prescribed: No Contraindication/Reason for not providing: HAS AICD Implantable Cardioverter Defibrillator Therapy: Yes Contraindication/Reason for not providing: HAS AICD Cardiac Resynchronization Therapy Prescribed: Yes Contraindication/Reason for not providing: HAS AICD - Follow up Will be discharged to: Home Follow Up Date (must be within 7 days from discharge): 01/10/18 Follow Up Time: 09:00
--- NOTE | 2018-01-04 13:34 | CARD ---
APPROVED REPORT Date of service: 12/08/2017 EKG Measurement Heart [id number] <Conclusion> Ventricular-paced rhythm Abnormal ECG
== END 2018-01-03 14:06 | disposition home or self-care (01) | DRG 280 ==
LOC: C.ER 16:00 → C.9E 19:51 → C.5S 20:55 → C.9I 12-12 08:53 → C.6T 12-19 17:43
PROVIDERS: ADMIT Internal Medicine; ATTEND Internal Medicine
PROC: 5A1955Z Respiratory Ventilation, Greater than 96 Consecutive Hours (ICD-10-PCS; principal; 2017-12-12)
PROC: 0BH17EZ Insertion of Endotracheal Airway into Trachea, Via Natural or Artificial Opening (ICD-10-PCS; 2017-12-12)
PROC: 4A023N7 Measurement of Cardiac Sampling and Pressure, Left Heart, Percutaneous Approach (ICD-10-PCS; 2017-12-27)
PROC: B2111ZZ Fluoroscopy of Multiple Coronary Arteries using Low Osmolar Contrast (ICD-10-PCS; 2017-12-27)
PROC: 4A023N7 Measurement of Cardiac Sampling and Pressure, Left Heart, Percutaneous Approach (ICD-10-PCS; 2017-12-30)
PROC: B2111ZZ Fluoroscopy of Multiple Coronary Arteries using Low Osmolar Contrast (ICD-10-PCS; 2017-12-30)
PROC: B2151ZZ Fluoroscopy of Left Heart using Low Osmolar Contrast (ICD-10-PCS; 2017-12-30)
DX: I11.0 Hypertensive heart disease with heart failure (principal); I21.4 Non-ST elevation (NSTEMI) myocardial infarction; I49.01 Ventricular fibrillation; J96.00 Acute respiratory failure, unspecified whether with hypoxia or hypercapnia; R57.0 Cardiogenic shock; J18.9 Pneumonia, unspecified organism; N17.9 Acute kidney failure, unspecified; Z99.11 Dependence on respirator [ventilator] status; E87.0 Hyperosmolality and hypernatremia; I47.2 Ventricular tachycardia; A04.72 Enterocolitis due to Clostridium difficile, not specified as recurrent; N39.0 Urinary tract infection, site not specified; I50.23 Acute on chronic systolic (congestive) heart failure; I25.10 Atherosclerotic heart disease of native coronary artery without angina pectoris; I25.5 Ischemic cardiomyopathy; I73.9 Peripheral vascular disease, unspecified; J44.9 Chronic obstructive pulmonary disease, unspecified; K40.90 Unilateral inguinal hernia, without obstruction or gangrene, not specified as recurrent; Z95.810 Presence of automatic (implantable) cardiac defibrillator; I48.2 Chronic atrial fibrillation; I27.20 Pulmonary hypertension, unspecified; D63.8 Anemia in other chronic diseases classified elsewhere; E87.5 Hyperkalemia; E78.5 Hyperlipidemia, unspecified; F17.210 Nicotine dependence, cigarettes, uncomplicated; Z79.82 Long term (current) use of aspirin; Z91.041 Radiographic dye allergy status; Z53.29 Procedure and treatment not carried out because of patient's decision for other reasons

== ENCOUNTER 2018-04-02 18:28 | Inpatient (IN) | payer MEDICARE ==
[2018-04-02 18:29] VITALS: PULSE 90; BMI 23.7
[2018-04-02] MEDS ORDERED: Nitroglycerin 2% Ointment Foilpak UD TOP STA (19:19)
[2018-04-02] MEDS ORDERED: Nitroglycerin 2% Ointment Foilpak UD TOP ONE (19:31)
[2018-04-02 19:45] LABS: BASO # 0.1 K/uL (0.0-0.2); BASO % 0.9 % (0.0-2.0); EOS % 0.4 % (0.0-4.0); HEMOGLOBIN 11.1 g/dL (12.0-18.0); LYMPH # 0.8 K/uL (1.0-4.3); LYMPH % 8.1 % (20.0-40.0); MEAN CELL VOLUME 91.7 fL (80.0-94.0); MEAN CORPUSCULAR HEMOGLOBIN 29.4 pg (27.0-31.0); MEAN CORPUSCULAR HGB CONC 32.1 g/dL (33.0-37.0); MEAN PLATELET VOLUME 9.2 fL (7.2-11.7); MONO # 1.1 K/uL (0.0-0.8); MONO % 10.4 % (0.0-10.0); NEUT # 8.1 K/uL (1.8-7.0); NEUT % 80.2 % (50.0-75.0); PLATELET COUNT 268 K/uL (130-400); RBC 3.78 Mil/uL (4.40-5.90); RED CELL DISTRIBUTION WIDTH 14.3 % (11.5-14.5); WHITE BLOOD COUNT 10.1 K/uL (4.8-10.8)
[2018-04-02 19:58] LABS: ALB/GLOB RATIO 1.1 (1.0-2.1); ALBUMIN 3.4 g/dL (3.5-5.0); ALT/SGPT 21 U/L (21-72); AST/SGOT 20 U/L (17-59); BLOOD UREA NITROGEN 19 mg/dL (9-20); CALCIUM 8.6 mg/dl (8.6-10.4); GFR NON-AFRICAN AMERICAN > 60
[2018-04-02 20:02] LABS: INR 1.1; PROTHROMBIN TIME 12.2 SECONDS (9.7-12.2)
[2018-04-02 20:06] LABS: ABG ALLEN TEST POS; ARTERIAL BLOOD GAS HCO3 29.7 mmol/L (21-28); ARTERIAL BLOOD GAS O2 SAT 95.5 % (95-98); ARTERIAL BLOOD GAS PCO2 56 mm/Hg (35-45); ARTERIAL BLOOD GAS PH 7.38 (7.35-7.45); ARTERIAL BLOOD GAS PO2 64 mm/Hg (80-100); ARTERIAL BLOOD GAS TCO2 34.8 mmol/L (22-28)
[2018-04-02 20:12] LABS: B-TYPE NATRIURETIC PEPTIDE 12900 pg/mL (0-900)
--- NOTE | 2018-04-02 20:13 | C.PDOC ---
History Of Present Illness 73 year old male with a Hx of CHF presents to the ER via EMS complaining of SOB for the past 3 days. Form Worker device used for Upper Sorbian interpretation, reports good compliance with medication. Denies chest pain. Time Seen by Provider: 04/02/18 19:17 Chief Complaint (Nursing): Shortness Of Breath History Per: Patient History/Exam Limitations: no limitations Onset/Duration Of Symptoms: Days (3) Current Symptoms Are (Timing): Still Present Current Respiratory Medications: See Home Med List Associated Symptoms: denies: Chest Pain Recent travel outside of the [place]: No Past Medical History Reviewed: Historical Data, Nursing Documentation, Vital Signs Vital Signs: Last Vital Signs Temp 97.9 F 04/02/18 18:37 Pulse 55 L 04/02/18 18:37 Resp 16 04/02/18 18:37 BP 199/77 H 04/02/18 18:37 Pulse Ox 100 04/02/18 18:37 - Medical History PMH: Atrial Fibrillation, Benign Prostatic Hyperplasia, CAD, CHF, COPD, Emphysema, HTN, Hyperlipidemia, Peripheral Edema Denies: HIV, Chronic Kidney Disease Surgical History: Hernia Repair, Pacemaker - [facility] Procedures ASSISTANCE WITH RESPIRATORY VENTILATION, <24 HRS, CPAP (03/03/18) FLUOROSCOPY OF LEFT HEART USING LOW OSMOLAR CONTRAST (12/08/17) FLUOROSCOPY OF MULT COR ART USING L OSM CONTRAST (12/08/17) INSERTION OF ENDOTRACHEAL AIRWAY INTO TRACHEA, VIA OPENING (12/08/17) MEASURE OF CARDIAC SAMPL & PRESSURE, L HEART, PERC APPROACH (12/08/17) RESPIRATORY VENTILATION, GREATER THAN 96 CONSECUTIVE HOURS (12/08/17) Family History: States: Unknown Family Hx - Social History Hx Alcohol Use: No Hx Substance Use: No - Immunization History Hx Tetanus Toxoid Vaccination: No Hx Influenza Vaccination: No Hx Pneumococcal Vaccination: No Review Of Systems Constitutional: Negative for: Fever, Chills Cardiovascular: Negative for: Chest Pain, Palpitations Respiratory: Positive for: Shortness of Breath Gastrointestinal: Negative for: Nausea, Vomiting Neurological: Negative for: Weakness, Numbness Physical Exam - Physical Exam Appears: Other (Moderate SOB) Skin: Normal Color, Warm, Dry Head: Atraumatic, Normacephalic Oral Mucosa: Moist Neck: Normal, Supple Chest: Symmetrical, No Tenderness Cardiovascular: Rhythm Regular, JVD Respiratory: Rales (Bilateral), No Rhonchi, No Wheezing Gastrointestinal/Abdominal: Soft, No Tenderness Extremity: Other (4/4 lower extremity edema) Neurological/Psych: Oriented x3, Normal Speech ED Course And Treatment - Laboratory Results Result Diagrams: 04/02/18 19:42 04/02/18 19:42 Lab Interpretation: Abnormal (trop neg, d dimer 1900, BNP 1300) ECG: Interpreted By Me, Viewed By Me ECG Rhythm: V Paced ECG Interpretation: Abnormal Rate From EC O2 Sat by Pulse Oximetry: 100 (Room air) Pulse Ox Interpretation: Normal - Radiology CXR: Interpreted by Me CXR Interpretation: Yes: Other (+CHF) Reevaluation Time: 21:31 Reassessment Condition: Improved - Physician Consult Information Outcome Of Conversation: [id number]: d/w Dr. Gonzalez and his Javad, pt's PMD- ok to admit. Medical Decision Making Medical Decision Making: chf with ? underlying PE, d-dimer 1900 but allergy to IV contrast lovenox given, consider VQ in AM Disposition Doctor Will See Patient In The: Hospital Counseled Patient/Family Regarding: Studies Performed, Diagnosis - Disposition Disposition: HOSPITALIZED Disposition Time: 21:31 Condition: GOOD - Clinical Impression Clinical Impression: Respiratory distress, CHF exacerbation - Scribe Statement The provider has reviewed the documentation as recorded by the Scribelzbieta Elmore All medical record entries made by the Felisaibe were at my direction and personally dictated by me. I have reviewed the chart and agree that the record accurately reflects my personal performance of the history, physical exam, medical decision making, and the department course for this patient. I have also personally directed, reviewed, and agree with the discharge instructions and disposition.
[2018-04-02 20:20] LABS: LYMPHOCYTE 1 % (20-40); MONOCYTE 8 % (0-10); NEUTROPHIL 91 % (50-75); PLATELET ESTIMATE NORMAL (NORMAL); TOTAL CELLS COUNTED 100
[2018-04-02] MEDS ORDERED: Enoxaparin 40 mg Syringe SC STA (21:25)
[2018-04-02] MEDS ORDERED: Enoxaparin 80 mg Syringe ONE (21:36)
--- NOTE | 2018-04-02 21:39 | CP.PCM.HP ---
History of Present Illness - History of Present Illness History of Present Illness: Patient is a 73 year old male w/ PMHx of Afib, PVD, CHF, CAD, HTN, HLD, COPD, BPH who presents to ED today with complaints of progressive SOB over the past few days. Patient reports increasing SOB with associated chest and upper back pressure so severe, he called EMS to bring him to the ED for evaluation and treatment. Patient reports a history of similar symptoms in the past, requiring emergent treatment to "drain water from his chest". Patient reports he is compliant with all medications as prescribed. Denies radiating pain to jaw/arms, nausea, diarrhea. Pmhx: Afib, PVD, CHF, CAD, HTN, HLD, COPD, BPH Pshx: herniorrhaphy, pacemaker Meds: spironolactone, ASA, coreg, lisinopril, lasix, lipitor, flomax, plavix, duonebs, trelegy ellipta, ambien Allergies: contrast SocHx: former smoker/alcohol use, denies drug use Present on Admission - Present on Admission Any Indicators Present on Admission: No Review of Systems - EENT Eyes: absent: Blurred Vision - Cardiovascular Cardiovascular: Chest Pain, Dyspnea, Leg Edema (B/L). absent: Radiating Pain - Respiratory Respiratory: Cough (dry), Dyspnea - Gastrointestinal Gastrointestinal: absent: Abdominal Pain, Nausea Past Patient History - Infectious Disease Hx of Infectious Diseases: None - Past Medical History & Family History Past Medical History?: Yes - Past Social History Smoking Status: Former Smoker - CARDIAC Hx Atrial Fibrillation: Yes Hx Congestive Heart Failure: Yes Hx Hypertension: Yes Hx Pacemaker: Yes Hx Peripheral Edema: Yes - PULMONARY Hx Chronic Obstructive Pulmonary Disease (COPD): Yes Hx Emphysema: Yes - NEUROLOGICAL Hx Neurological Disorder: No - HEENT Hx HEENT Problems: Yes Other/Comment: Eye glasses - RENAL Hx Chronic Kidney Disease: No - ENDOCRINE/METABOLIC Hx Endocrine Disorders: No - HEMATOLOGICAL/ONCOLOGICAL Hx Human Immunodeficiency Virus (HIV): No - INTEGUMENTARY Hx Dermatological Problems: No - MUSCULOSKELETAL/RHEUMATOLOGICAL Hx Musculoskeletal Disorders: No Hx Falls: No - GASTROINTESTINAL Hx Gastrointestinal Disorders: No - GENITOURINARY/GYNECOLOGICAL Hx Genitourinary Disorders: Yes Hx Prostate Problems: Yes - PSYCHIATRIC Hx Substance Use: No - SURGICAL HISTORY Hx Surgeries: Yes Hx Herniorrhaphy: Yes Other/Comment: Hx Pacemaker insertion - ANESTHESIA Hx Anesthesia: Yes Hx Anesthesia Reactions: No Hx Malignant Hyperthermia: No Meds Allergies/Adverse Reactions: Allergies Allergy/AdvReac Type Severity Reaction Status Date / Time Iodinated Contrast- Oral and AdvReac ANAPHYLAXIS Verified 04/02/18 18:59 IV Dye Physical Exam - Constitutional Appears: No Acute Distress - Head Exam Head Exam: ATRAUMATIC, NORMAL INSPECTION, NORMOCEPHALIC - Eye Exam Eye Exam: EOMI, Normal appearance - ENT Exam ENT Exam: Mucous Membranes Moist, Normal Exam - Neck Exam Neck exam: Positive for: Normal Inspection - Respiratory Exam Respiratory Exam: Accessory Muscle Use, Prolonged Expiratory Phase, Respiratory Distress, NORMAL BREATHING PATTERN - Cardiovascular Exam Cardiovascular Exam: Tachycardia, REGULAR RHYTHM Additional comments: JVD - GI/Abdominal Exam GI & Abdominal Exam: Soft. absent: Distended - Extremities Exam Extremities exam: Positive for: pedal edema (2+). Negative for: calf tenderness - Neurological Exam Neurological exam: Alert, Oriented x3 - Psychiatric Exam Psychiatric exam: Anxious - Skin Skin Exam: Dry, Intact, Normal Color, Warm Results - Vital Signs Recent Vital Signs: Last Vital Signs Temp 97.9 F 04/02/18 18:37 Pulse 55 L 04/02/18 18:37 Resp 18 04/02/18 19:30 BP 199/77 H 04/02/18 18:37 Pulse Ox 100 04/02/18 21:32 - Labs Result Diagrams: 04/02/18 19:42 04/02/18 19:42 Labs: Laboratory Results - last 24 hr 04/02/18 04/02/18 04/02/18 19:42 19:42 19:42 WBC 10.1 RBC 3.78 L Hgb 11.1 L Hct 34.6 L MCV 91.7 MCH 29.4 MCHC 32.1 L RDW 14.3 Plt Count 268 MPV 9.2 Neut % (Auto) 80.2 H Lymph % (Auto) 8.1 L Antelope % (Auto) 10.4 H Eos % (Auto) 0.4 Baso % (Auto) 0.9 Neut # (Auto) 8.1 H Lymph # (Auto) 0.8 L Antelope # (Auto) 1.1 H Eos # (Auto) 0.0 Baso # (Auto) 0.1 Neutrophils % (Manual) 91 H Lymphocytes % (Manual) 1 L Monocytes % (Manual) 8 Platelet Estimate Normal RBC Morphology Normal PT 12.2 INR 1.1 APTT 30 D-Dimer, Quantitative 1898 H Puncture Site pCO2 pO2 HCO3 ABG pH ABG Total CO2 ABG O2 Saturation ABG Base Excess Maicol Test ABG Potassium A-a O2 Difference Respiratory Index Glucose Lactate Liter Flow FiO2 Sodium 142 Potassium 4.4 Chloride 103 Carbon Dioxide 35 H Anion Gap 8 L BUN 19 Creatinine 0.8 Est GFR ( Amer) > 60 Est GFR (Non-Af Amer) > 60 Random Glucose 124 H Calcium 8.6 Total Bilirubin 0.3 AST 20 ALT 21 D Alkaline Phosphatase 63 Troponin I 0.1090 NT-Pro-B Natriuret Pep 20964 H Total Protein 6.4 Albumin 3.4 L Globulin 3.0 Albumin/Globulin Ratio 1.1 Arterial Blood Potassium 04/02/18 20:00 WBC RBC Hgb Hct MCV MCH MCHC RDW Plt Count MPV Neut % (Auto) Lymph % (Auto) Antelope % (Auto) Eos % (Auto) Baso % (Auto) Neut # (Auto) Lymph # (Auto) Antelope # (Auto) Eos # (Auto) Baso # (Auto) Neutrophils % (Manual) Lymphocytes % (Manual) Monocytes % (Manual) Platelet Estimate RBC Morphology PT INR APTT D-Dimer, Quantitative Puncture Site Rradial pCO2 56 H pO2 64 L HCO3 29.7 H ABG pH 7.38 ABG Total CO2 34.8 H ABG O2 Saturation 95.5 ABG Base Excess 6.3 H Maicol Test Pos ABG Potassium 4.0 A-a O2 Difference 116.0 Respiratory Index 1.8 Glucose 84 Lactate 0.4 L Liter Flow 3.5 FiO2 35.0 Sodium 142.0 Potassium Chloride 108.0 H Carbon Dioxide Anion Gap BUN Creatinine Est GFR ( Amer) Est GFR (Non-Af Amer) Random Glucose Calcium Total Bilirubin AST ALT Alkaline Phosphatase Troponin I NT-Pro-B Natriuret Pep Total Protein Albumin Globulin Albumin/Globulin Ratio Arterial Blood Potassium 4.0 Assessment & Plan - Assessment and Plan (Free Text) Assessment: 73 year old male admitted for treatment of hypercapnic respiratory distress Plan: CHF exacerbation -pBNP 12,900 -resume home spironolactone, coreg, lisinopril -lasix 40mg ivp BID -ins/outs r/o ACS/CAD -nitro given in ED -f/u APRIL -resume home ASA, statin, plavix r/o PE -d-dimer 1897 -CTA contraindicated 2/2 contrast allergy -re-evaluate need for V/Q tomorrow am COPD -duonebs q4 prn -O2 NC 2L A Fib -not on home anticoagulation -monitor on tele Ppx -SCD contraindication 2/2 PVD -GI ppx, pepcid Discussed with Dr. Gonzalez -Mindi Shore, PGY-1
[2018-04-03] MEDS: Albuterol-Ipratrop 3 mg / 0.5 (3 ml) UD INH PRN ×2 (00:58→04:37)
[2018-04-03 02:52] LABS: CK-MB 2.45 ng/mL (0.0-3.38); TROPONIN I 0.154 ng/mL (0.00-0.120)
[2018-04-03 04:56] LABS: SQUAMOUS EPITHIAL < 1 /hpf (0-5); URINE BACTERIA RARE (<OCC); URINE BILIRUBIN NEGATIVE (NEGATIVE); URINE CLARITY Clear (Clear); URINE COLOR Yellow (YELLOW); URINE GLUCOSE (UA) NORMAL (Normal); URINE LEUKOCYTE ESTERASE TRACE Leu/uL (Negative); URINE PROTEIN 2+ mg/dL (NEGATIVE); URINE UROBILINOGEN NORMAL mg/dL (0.2-1.0)
[2018-04-03 04:57] LABS: URINE BLOOD NEGATIVE (NEGATIVE)
[2018-04-03 06:41] LABS: BASO # 0.2 K/uL (0.0-0.2); BASO % 1.9 % (0.0-2.0); EOS # 0.1 K/uL (0.0-0.7); EOS % 1.4 % (0.0-4.0); LYMPH % 12.3 % (20.0-40.0); MEAN CELL VOLUME 90.8 fL (80.0-94.0); MEAN CORPUSCULAR HEMOGLOBIN 29.1 pg (27.0-31.0); MEAN CORPUSCULAR HGB CONC 32.1 g/dL (33.0-37.0); MEAN PLATELET VOLUME 8.9 fL (7.2-11.7); MONO # 0.9 K/uL (0.0-0.8); MONO % 10.8 % (0.0-10.0); NEUT # 6.2 K/uL (1.8-7.0); NEUT % 73.6 % (50.0-75.0); RBC 3.76 Mil/uL (4.40-5.90); RED CELL DISTRIBUTION WIDTH 14.2 % (11.5-14.5); WHITE BLOOD COUNT 8.5 K/uL (4.8-10.8)
[2018-04-03 07:26] LABS: ALBUMIN 3.2 g/dL (3.5-5.0); ALT/SGPT 20 U/L (21-72); AST/SGOT 29 U/L (17-59); BLOOD UREA NITROGEN 17 mg/dL (9-20); CALCIUM 8.6 mg/dl (8.6-10.4); GFR NON-AFRICAN AMERICAN > 60
[2018-04-03 07:37] LABS: CK-MB 2.53 ng/mL (0.0-3.38)
[2018-04-03 07:39] LABS: TROPONIN I 0.155 ng/mL (0.00-0.120)
--- NOTE | 2018-04-03 09:51 | CP.PCM.PN ---
Subjective - Date & Time of Evaluation Date of Evaluation: 04/03/18 Time of Evaluation: 09:46 - Subjective Subjective: Cesilia Jones PGY1 Progress Note for Dr. Gonzalez Pt was examined at bedside this morning. He reports continuation of his shortness of breath which is worse with walking. He denies chest pain. He reports some dizziness and swelling in the He denies nausea, vomiting, abdominal pain, diarrhea, dysuria. Objective - Vital Signs/Intake and Output Vital Signs (last 24 hours): Temp Pulse Resp BP Pulse Ox 97.2 F L 76 18 140/74 90 L 04/03/18 07:00 04/03/18 07:00 04/03/18 07:00 04/03/18 09:29 04/03/18 07:00 - Medications Medications: Current Medications Albuterol/Ipratropium (Duoneb 3 Mg/0.5 Mg (3 Ml) Ud) 3 ml INH RQ4 PRN PRN Reason: Shortness of Breath Last Admin: 04/03/18 04:37 Dose: 3 ml Aspirin (Aspirin Chewable) 81 mg PO DAILY [facility] Last Admin: 04/03/18 09:29 Dose: 81 mg Carvedilol (Coreg) 6.25 mg PO Q12 [facility] Last Admin: 04/03/18 09:29 Dose: 6.25 mg Clopidogrel Bisulfate (Plavix) 75 mg PO DAILY [facility] Last Admin: 04/03/18 09:29 Dose: 75 mg Enoxaparin Sodium (Lovenox) 40 mg SC DAILY [facility] Last Admin: 04/03/18 09:28 Dose: 40 mg Famotidine (Pepcid) 20 mg PO DAILY [facility] Last Admin: 04/03/18 09:29 Dose: 20 mg Furosemide (Lasix) 40 mg IVP Q12 [facility] Last Admin: 04/03/18 09:29 Dose: 40 mg Lisinopril (Zestril) 10 mg PO DAILY [facility] Last Admin: 04/03/18 09:29 Dose: 10 mg Rosuvastatin Calcium (Crestor) 10 mg PO HS [facility] Spironolactone (Aldactone) 12.5 mg PO BID [facility] Tamsulosin HCl (Flomax) 0.4 mg PO DAILY [facility] Last Admin: 04/03/18 09:29 Dose: 0.4 mg - Labs Labs: 04/03/18 06:28 04/03/18 06:28 PT 12.2 SECONDS (9.7-12.2) 04/02/18 19:42 INR 1.1 04/02/18 19:42 APTT 30 SECONDS (21-34) 04/02/18 19:42 - Constitutional Appears: Well, No Acute Distress - Head Exam Head Exam: ATRAUMATIC, NORMOCEPHALIC - Eye Exam Eye Exam: EOMI, Normal appearance, PERRL Pupil Exam: NORMAL ACCOMODATION - ENT Exam ENT Exam: Mucous Membranes Moist - Respiratory Exam Respiratory Exam: Rhonchi, NORMAL BREATHING PATTERN. absent: Rales, Wheezes, Respiratory Distress - Cardiovascular Exam Cardiovascular Exam: Irregular Rhythm, +S1, +S2. absent: Gallop, Rubs, Murmur - GI/Abdominal Exam GI & Abdominal Exam: Soft, Normal Bowel Sounds. absent: Distended, Firm, Tenderness - Extremities Exam Extremities Exam: Pedal Edema - Neurological Exam Neurological Exam: Alert, Awake, CN II-XII Intact, Oriented x3 - Psychiatric Exam Psychiatric exam: Normal Affect, Normal Mood - Skin Skin Exam: Dry Assessment and Plan - Assessment and Plan (Free Text) Assessment: 73 year old male admitted for treatment of hypercapnic respiratory distress, now with elevated troponins. Cardiology Dr. Cruz consulted. Plan: CHF exacerbation - BNP 12,900 - CXR: interval b/l mid to inferior infiltrates favored over pulmonary venous congestion. cardiomegaly stable. - spironolactone 12.5mg PO BID - coreg 6.125 PO BID - lisinopril 10mg PO daily - lasix 40mg ivp BID - I/Os - daily weights Elevated Troponins, h/o CAD s/p AICD - troponins 0.1540, 0.1550 - D-dimer 8, elevated - EKG: ventricular paced - f/u ECHO - ASA 81 PO daily - Crestor 10mg PO HS - plavix 75mg PO daily - Cardiology consulted, Dr. Cruz - f/u recs r/o PE - D-dimer 8, elevated - CTA contraindicated 2/2 contrast allergy COPD - CXR: interval b/l mid to inferior infiltrates favored over pulmonary venous congestion. cardiomegaly stable. - ABG: hypercapnia - duonebs q4 prn - O2 NC 2L A Fib w/ AICD - coreg 6.125 PO BID - plavix 75mg PO daily - monitor on tele PPx GI: pepcid DVT: on plavix Discussed with Dr. Gonzalez
[2018-04-03] MEDS ORDERED: Enoxaparin 40 mg Syringe SC SCH (10:00)
--- NOTE | 2018-04-03 10:47 | RAD ---
Date of service: 04/02/2018 HISTORY: SOB COMPARISON: Chest radiographs 01/01/2018. FINDINGS: LUNGS: Interval patchy densities appreciated at the mid to inferior lung zones bilaterally suspicious for infiltrates though underlying pulmonary vascular congestion is not excluded. PLEURA: Trace bilateral pleural effusions appear to be developing. No pneumothorax bilaterally. CARDIOVASCULAR: Calcific atherosclerotic changes are seen related to the thoracic aorta. Cardiomegaly appears stable. See vascular comments discussed in lung section above. AICD/pacemaker reiterated. Dilated right atrium suspected. OSSEOUS STRUCTURES: No significant abnormalities. VISUALIZED UPPER ABDOMEN: Normal. OTHER FINDINGS: None. IMPRESSION: Interval bilateral mid to inferior pulmonary infiltrates favored over pulmonary vascular congestion. Clinically correlate. Cardiomegaly stable. AICD/pacemaker reiterated.
--- NOTE | 2018-04-03 16:43 | CP.PCM.CON ---
History of Present Illness - History of Present Illness History of Present Illness: I came to evaluate patient but he is currently off the floor for CT scan. [facility] cath from [facility] reviewed. can d/c troponin Past Patient History - Infectious Disease Hx of Infectious Diseases: None - Past Medical History & Family History Past Medical History?: Yes - Past Social History Smoking Status: Former Smoker - CARDIAC Hx Atrial Fibrillation: Yes Hx Congestive Heart Failure: Yes Hx Hypertension: Yes Hx Pacemaker: Yes Hx Peripheral Edema: Yes - PULMONARY Hx Chronic Obstructive Pulmonary Disease (COPD): Yes Hx Emphysema: Yes - NEUROLOGICAL Hx Neurological Disorder: No - HEENT Hx HEENT Problems: Yes Other/Comment: Eye glasses - RENAL Hx Chronic Kidney Disease: No - ENDOCRINE/METABOLIC Hx Endocrine Disorders: No - HEMATOLOGICAL/ONCOLOGICAL Hx Human Immunodeficiency Virus (HIV): No - INTEGUMENTARY Hx Dermatological Problems: No - MUSCULOSKELETAL/RHEUMATOLOGICAL Hx Musculoskeletal Disorders: No Hx Falls: No - GASTROINTESTINAL Hx Gastrointestinal Disorders: No - GENITOURINARY/GYNECOLOGICAL Hx Genitourinary Disorders: Yes Hx Prostate Problems: Yes - PSYCHIATRIC Hx Substance Use: No - SURGICAL HISTORY Hx Surgeries: Yes Hx Herniorrhaphy: Yes Other/Comment: Hx Pacemaker insertion - ANESTHESIA Hx Anesthesia: Yes Hx Anesthesia Reactions: No Hx Malignant Hyperthermia: No Meds Allergies/Adverse Reactions: Allergies Allergy/AdvReac Type Severity Reaction Status Date / Time Iodinated Contrast- Oral and AdvReac ANAPHYLAXIS Verified 04/02/18 18:59 IV Dye - Medications Medications: Current Medications Albuterol/Ipratropium (Duoneb 3 Mg/0.5 Mg (3 Ml) Ud) 3 ml INH RQ4 PRN PRN Reason: Shortness of Breath Last Admin: 04/03/18 04:37 Dose: 3 ml Aspirin (Aspirin Chewable) 81 mg PO DAILY [facility] Last Admin: 04/03/18 09:29 Dose: 81 mg Carvedilol (Coreg) 6.25 mg PO Q12 [facility] Last Admin: 04/03/18 09:29 Dose: 6.25 mg Clopidogrel Bisulfate (Plavix) 75 mg PO DAILY [facility] Last Admin: 04/03/18 09:29 Dose: 75 mg Famotidine (Pepcid) 20 mg PO DAILY [facility] Last Admin: 04/03/18 09:29 Dose: 20 mg Furosemide (Lasix) 40 mg IVP Q12 [facility] Last Admin: 04/03/18 09:29 Dose: 40 mg Heparin Sodium (Porcine) (Heparin) 5,000 units SC Q8 [facility] Last Admin: 04/03/18 16:31 Dose: 5,000 units Azithromycin 500 mg/ Sodium (Chloride) 250 mls @ 250 mls/hr IVPB Q24H [facility]; Protocol Ceftriaxone Sodium 1 gm/ (Sodium Chloride) 100 mls @ 100 mls/hr IVPB Q24H [facility]; Protocol Influenza Virus Vaccine (Fluzone Quad [id number]) 60 mcg IM .ONCE ONE Stop: 04/05/18 10:01 Lisinopril (Zestril) 10 mg PO DAILY [facility] Last Admin: 04/03/18 09:29 Dose: 10 mg Rosuvastatin Calcium (Crestor) 10 mg PO [facility] Spironolactone (Aldactone) 12.5 mg PO BID [facility] Last Admin: 04/03/18 12:15 Dose: 12.5 mg Tamsulosin HCl (Flomax) 0.4 mg PO DAILY [facility] Last Admin: 04/03/18 09:29 Dose: 0.4 mg Results - Vital Signs Recent Vital Signs: Last Vital Signs Temp 98.1 F 04/03/18 15:41 Pulse 80 04/03/18 16:00 Resp 20 04/03/18 15:41 BP 146/78 04/03/18 15:41 Pulse Ox 97 04/03/18 15:41 - Labs Result Diagrams: 04/03/18 06:28 04/03/18 06:28 Labs: Laboratory Results - last 24 hr 04/02/18 04/02/18 04/02/18 19:42 19:42 19:42 WBC 10.1 RBC 3.78 L Hgb 11.1 L Hct 34.6 L MCV 91.7 MCH 29.4 MCHC 32.1 L RDW 14.3 Plt Count 268 MPV 9.2 Neut % (Auto) 80.2 H Lymph % (Auto) 8.1 L [place] % (Auto) 10.4 H Eos % (Auto) 0.4 Baso % (Auto) 0.9 Neut # (Auto) 8.1 H Lymph # (Auto) 0.8 L [place] # (Auto) 1.1 H Eos # (Auto) 0.0 Baso # (Auto) 0.1 Neutrophils % (Manual) 91 H Lymphocytes % (Manual) 1 L Monocytes % (Manual) 8 Platelet Estimate Normal RBC Morphology Normal PT 12.2 INR 1.1 APTT 30 D-Dimer, Quantitative 1898 H Puncture Site pCO2 pO2 HCO3 ABG pH ABG Total CO2 ABG O2 Saturation ABG Base Excess Maicol Test ABG Potassium A-a O2 Difference Respiratory Index Glucose Lactate Liter Flow FiO2 Sodium 142 Potassium 4.4 Chloride 103 Carbon Dioxide 35 H Anion Gap 8 L BUN 19 Creatinine 0.8 Est GFR ( Amer) > 60 Est GFR (Non-Af Amer) > 60 Random Glucose 124 H Calcium 8.6 Total Bilirubin 0.3 AST 20 ALT 21 D Alkaline Phosphatase 63 Total Creatine Kinase CK-MB (Mass) Troponin I 0.1090 NT-Pro-B Natriuret Pep 67712 H Total Protein 6.4 Albumin 3.4 L Globulin 3.0 Albumin/Globulin Ratio 1.1 Arterial Blood Potassium Urine Color Urine Clarity Urine pH Ur Specific [place] Urine Protein Urine Glucose (UA) Urine Ketones Urine Blood Urine Nitrate Urine Bilirubin Urine Urobilinogen Ur Leukocyte Esterase Urine WBC (Auto) Urine RBC (Auto) Ur Squamous Epith Cells Urine Bacteria Hyaline Casts Digoxin 04/02/18 04/03/18 04/03/18 20:00 02:11 04:38 WBC RBC Hgb Hct MCV MCH MCHC RDW Plt Count MPV Neut % (Auto) Lymph % (Auto) [place] % (Auto) Eos % (Auto) Baso % (Auto) Neut # (Auto) Lymph # (Auto) [place] # (Auto) Eos # (Auto) Baso # (Auto) Neutrophils % (Manual) Lymphocytes % (Manual) Monocytes % (Manual) Platelet Estimate RBC Morphology PT INR APTT D-Dimer, Quantitative Puncture Site Rradial pCO2 56 H pO2 64 L HCO3 29.7 H ABG pH 7.38 ABG Total CO2 34.8 H ABG O2 Saturation 95.5 ABG Base Excess 6.3 H Maicol Test Pos ABG Potassium 4.0 A-a O2 Difference 116.0 Respiratory Index 1.8 Glucose 84 Lactate 0.4 L Liter Flow 3.5 FiO2 35.0 Sodium 142.0 Potassium Chloride 108.0 H Carbon Dioxide Anion Gap BUN Creatinine Est GFR ( Amer) Est GFR (Non-Af Amer) Random Glucose Calcium Total Bilirubin AST ALT Alkaline Phosphatase Total Creatine Kinase 64 CK-MB (Mass) 2.45 Troponin I 0.1540 H* NT-Pro-B Natriuret Pep Total Protein Albumin Globulin Albumin/Globulin Ratio Arterial Blood Potassium 4.0 Urine Color Yellow Urine Clarity Clear Urine pH 5.0 Ur Specific [place] 1.009 Urine Protein 2+ H Urine Glucose (UA) Normal Urine Ketones Negative Urine Blood Negative Urine Nitrate Negative Urine Bilirubin Negative Urine Urobilinogen Normal Ur Leukocyte Esterase Trace Urine WBC (Auto) 27 H Urine RBC (Auto) 1 Ur Squamous Epith Cells < 1 Urine Bacteria Rare Hyaline Casts 6-10 H Digoxin 04/03/18 04/03/18 04/03/18 06:28 06:28 06:28 WBC 8.5 RBC 3.76 L Hgb 11.0 L Hct 34.2 L MCV 90.8 MCH 29.1 MCHC 32.1 L RDW 14.2 Plt Count 264 MPV 8.9 Neut % (Auto) 73.6 Lymph % (Auto) 12.3 L [place] % (Auto) 10.8 H Eos % (Auto) 1.4 Baso % (Auto) 1.9 Neut # (Auto) 6.2 Lymph # (Auto) 1.0 [place] # (Auto) 0.9 H Eos # (Auto) 0.1 Baso # (Auto) 0.2 Neutrophils % (Manual) Lymphocytes % (Manual) Monocytes % (Manual) Platelet Estimate RBC Morphology PT INR APTT D-Dimer, Quantitative Puncture Site pCO2 pO2 HCO3 ABG pH ABG Total CO2 ABG O2 Saturation ABG Base Excess Maicol Test ABG Potassium A-a O2 Difference Respiratory Index Glucose Lactate Liter Flow FiO2 Sodium 136 Potassium 4.0 Chloride 96 L Carbon Dioxide 37 H Anion Gap 7 L BUN 17 Creatinine 0.7 L Est GFR ( Amer) > 60 Est GFR (Non-Af Amer) > 60 Random Glucose 102 Calcium 8.6 Total Bilirubin 0.4 AST 29 ALT 20 L Alkaline Phosphatase 70 Total Creatine Kinase CK-MB (Mass) Troponin I NT-Pro-B Natriuret Pep Total Protein 6.4 Albumin 3.2 L Globulin 3.2 Albumin/Globulin Ratio 1.0 Arterial Blood Potassium Urine Color Urine Clarity Urine pH Ur Specific [place] Urine Protein Urine Glucose (UA) Urine Ketones Urine Blood Urine Nitrate Urine Bilirubin Urine Urobilinogen Ur Leukocyte Esterase Urine WBC (Auto) Urine RBC (Auto) Ur Squamous Epith Cells Urine Bacteria Hyaline Casts Digoxin 0.6 L 04/03/18 06:28 WBC RBC Hgb Hct MCV MCH MCHC RDW Plt Count MPV Neut % (Auto) Lymph % (Auto) [place] % (Auto) Eos % (Auto) Baso % (Auto) Neut # (Auto) Lymph # (Auto) [place] # (Auto) Eos # (Auto) Baso # (Auto) Neutrophils % (Manual) Lymphocytes % (Manual) Monocytes % (Manual) Platelet Estimate RBC Morphology PT INR APTT D-Dimer, Quantitative Puncture Site pCO2 pO2 HCO3 ABG pH ABG Total CO2 ABG O2 Saturation ABG Base Excess Maicol Test ABG Potassium A-a O2 Difference Respiratory Index Glucose Lactate Liter Flow FiO2 Sodium Potassium Chloride Carbon Dioxide Anion Gap BUN Creatinine Est GFR ( Amer) Est GFR (Non-Af Amer) Random Glucose Calcium Total Bilirubin AST ALT Alkaline Phosphatase Total Creatine Kinase 64 CK-MB (Mass) 2.53 Troponin I 0.1550 H* NT-Pro-B Natriuret Pep Total Protein Albumin Globulin Albumin/Globulin Ratio Arterial Blood Potassium Urine Color Urine Clarity Urine pH Ur Specific [place] Urine Protein Urine Glucose (UA) Urine Ketones Urine Blood Urine Nitrate Urine Bilirubin Urine Urobilinogen Ur Leukocyte Esterase Urine WBC (Auto) Urine RBC (Auto) Ur Squamous Epith Cells Urine Bacteria Hyaline Casts Digoxin
--- NOTE | 2018-04-03 17:29 | CARD ---
APPROVED REPORT Date of service: 04/03/2018 EXAM: Two-dimensional and M-mode echocardiogram with Doppler and color Doppler. Other Information Quality : GoodRhythm : 2D DIMENSIONS IVSd1.4 (0.7-1.1cm)LVDd6.8 (3.9-5.9cm) PWd1.2 (0.7-1.1cm)LA Odtlea140 (18-58mL) LVDs6.3 (2.5-4.0cm)FS (%) 7.3 % LVEF (%)15.7 (>50%)LVEF (Domingo's)15 % IVC0.00 cm M-Mode DIMENSIONS RVDd2.11 (2.1-3.2cm)Left Atrium (MM)4.92 (2.5-4.0cm) IVSd1.25 (0.7-1.1cm)Aortic Root4.13 (2.2-3.7cm) LVDd8.04 (4.0-5.6cm)Aortic Cusp Exc.2.19 (1.5-2.0cm) PWd1.17 (0.7-1.1cm)FS (%) 9 % LVDs7.30 (2.0-3.8cm)LVEF (%)19 (>50%) Mitral Valve MV E Ipbcnxik81.2cm/sMV A Mkyydeib98.9cm/sE/A ratio0.7 NIVR392.10 cm/s TDI Lateral E' Peak V3.77cm/sMedial E' Peak V2.80cm/sE/Lateral E'12.8 E/Medial E'17.2 Tricuspid Valve TR Peak Kbujapey829gd/sTR Peak Gr.90ysPxUHBW82jgPd LEFT VENTRICLE The left ventricle is moderately dilated. There is borderline to mild concentric left ventricular hypertrophy. Left ventricle systolic function is severely impaired. The Ejection Fraction is - 20 -20=5%. There is global hypokinesis of the left ventricle. Transmitral Doppler flow pattern is Grade I-abnormal relaxation pattern. Elevated left atrial pressure. RIGHT VENTRICLE The right ventricle is normal size. The right ventricular systolic function is normal. There is a pacemaker lead in the right ventricle. ATRIA The left atrium is moderately dilated. The right atrium is moderately dilated. There is a pacemaker lead seen in the right atrium. AORTIC VALVE The aortic valve is normal in structure. No aortic regurgitation is present. There is no aortic valvular stenosis. MITRAL VALVE The mitral valve is normal in structure. Mitral regurgitation is mild. TRICUSPID VALVE The tricuspid valve is normal in structure. There is moderate tricuspid regurgitation. Right ventricular systolic pressure is estimated at - 42 mmHg. There is mild pulmonary hypertension. PULMONIC VALVE The pulmonary valve is normal in structure. There is trace to mild pulmonic valvular regurgitation. GREAT VESSELS The aortic root is normal in size. The IVC is normal in size and collapses >50% with inspiration. PERICARDIAL EFFUSION There is a trace pericardial effusion. <Conclusion> The left ventricle is moderately dilated with borderline / mild concentric left ventricular hypertrophy. There is global hypokinesis of the left ventricle. Left ventricle systolic function is severely impaired with Ejection Fraction - 20 -25% Grade I diastolic dysfunction with high left atrial pressure. The right ventricular systolic function is normal. Bi - atrial enlargement Pacemaker leads in the right heart. Mild mitral regurgitation There is moderate tricuspid regurgitation. There is mild pulmonary hypertension. Right ventricular systolic pressure is estimated at - 42 mmHg. There is a trace pericardial effusion.
--- NOTE | 2018-04-03 18:38 | CARD ---
APPROVED REPORT Date of service: 04/02/2018 EKG Measurement Heart [id number] P108 [id number] <Conclusion> Ventricular-paced rhythm Abnormal ECG
[2018-04-03] MEDS: Azithromycin 500 MG in Sodium Chloride 0.9% 250 ML IVPB SCH (20:12)
[2018-04-04] MEDS: Albuterol-Ipratrop 3 mg / 0.5 (3 ml) UD INH PRN (02:42)
--- NOTE | 2018-04-04 09:30 | CP.PCM.PN ---
Subjective - Date & Time of Evaluation Date of Evaluation: 04/04/18 Time of Evaluation: 09:27 - Subjective Subjective: Cesilia Jones PGY1 Progress Note for Dr. Gonzalez Pt was examined at bedside this morning. He reports improvement in his shortness of breath after the last breathing treatment. He continues to complain of swelling in his legs. He denies any chest pain, dizziness, nausea, vomiting, abdominal pain, diarrhea, dysuria. Objective - Vital Signs/Intake and Output Vital Signs (last 24 hours): Temp Pulse Resp BP Pulse Ox 97.4 F L 89 20 132/82 95 04/04/18 07:00 04/04/18 07:00 04/04/18 07:00 04/04/18 09:09 04/04/18 07:00 Intake and Output: 04/04/18 04/04/18 06:59 18:59 Intake Total 120 Output Total 650 Balance -530 - Medications Medications: Current Medications Albuterol/Ipratropium (Duoneb 3 Mg/0.5 Mg (3 Ml) Ud) 3 ml INH RQ4 PRN PRN Reason: Shortness of Breath Last Admin: 04/04/18 02:42 Dose: 3 ml Aspirin (Aspirin Chewable) 81 mg PO DAILY [facility] Last Admin: 04/04/18 09:09 Dose: 81 mg Carvedilol (Coreg) 6.25 mg PO Q12 [facility] Last Admin: 04/04/18 09:09 Dose: 6.25 mg Clopidogrel Bisulfate (Plavix) 75 mg PO DAILY [facility] Last Admin: 04/04/18 09:09 Dose: 75 mg Famotidine (Pepcid) 20 mg PO DAILY [facility] Last Admin: 04/04/18 09:09 Dose: 20 mg Furosemide (Lasix) 40 mg IVP Q12 [facility] Last Admin: 04/04/18 09:09 Dose: 40 mg Heparin Sodium (Porcine) (Heparin) 5,000 units SC Q8 [facility] Last Admin: 04/04/18 05:05 Dose: 5,000 units Azithromycin 500 mg/ Sodium (Chloride) 250 mls @ 250 mls/hr IVPB Q24H [facility]; Protocol Last Admin: 04/03/18 20:12 Dose: 250 mls/hr Ceftriaxone Sodium 1 gm/ (Sodium Chloride) 100 mls @ 100 mls/hr IVPB Q24H [facility]; Protocol Last Admin: 04/03/18 18:52 Dose: 100 mls/hr Influenza Virus Vaccine (Fluzone Quad [id number]) 60 mcg IM .ONCE ONE Stop: 04/05/18 10:01 Lisinopril (Zestril) 10 mg PO DAILY [facility] Last Admin: 04/04/18 09:09 Dose: 10 mg Rosuvastatin Calcium (Crestor) 10 mg PO [facility] Spironolactone (Aldactone) 12.5 mg PO BID [facility] Last Admin: 04/03/18 19:22 Dose: Not Given Tamsulosin HCl (Flomax) 0.4 mg PO DAILY [facility] Last Admin: 04/04/18 09:09 Dose: 0.4 mg Zolpidem Tartrate (Ambien) 5 mg PO [facility] Last Admin: 04/03/18 22:58 Dose: 5 mg - Labs Labs: 04/03/18 06:28 04/03/18 06:28 PT 12.2 SECONDS (9.7-12.2) 04/02/18 19:42 INR 1.1 04/02/18 19:42 APTT 30 SECONDS (21-34) 04/02/18 19:42 - Additional Findings Additional findings: - Head Exam Head Exam: ATRAUMATIC, NORMOCEPHALIC - Eye Exam Eye Exam: EOMI, Normal appearance, PERRL Pupil Exam: NORMAL ACCOMODATION - ENT Exam ENT Exam: Mucous Membranes Moist - Respiratory Exam Respiratory Exam: Decreased breath sounds. NORMAL BREATHING PATTERN. absent: Rales, Wheezes, Rales, Respiratory Distress - Cardiovascular Exam Cardiovascular Exam: Irregular Rhythm, +S1, +S2. absent: Gallop, Rubs, Murmur - GI/Abdominal Exam GI & Abdominal Exam: Soft, Normal Bowel Sounds. absent: Distended, Firm, Tenderness - Extremities Exam Extremities Exam: Pedal Edema, improved from yesterday - Neurological Exam Neurological Exam: Alert, Awake, CN II-XII Intact, Oriented x3 - Psychiatric Exam Psychiatric exam: Normal Affect, Normal Mood - Skin Skin Exam: Dry Assessment and Plan - Assessment and Plan (Free Text) Assessment: 73 year old male admitted for treatment of hypercapnic respiratory distress, with elevated troponins and D-dimer. Plan: systolic CHF exacerbation - BNP 12,900 - CXR: interval b/l mid to inferior infiltrates favored over pulmonary venous congestion. cardiomegaly stable. - spironolactone 12.5mg PO BID - coreg 6.125 PO BID - lisinopril 10mg PO daily - lasix 40mg ivp BID - I/Os - daily weights h/o CAD s/p AICD - troponins 0.1540, 0.1550, elevated - D-dimer 1898, elevated - EKG: ventricular paced - ECHO: LVH, EF 20-25%. mild pulmonary HTN, mild MR - s/p cath 12/18: proximal LAD 50% non obstructive stenosis, mid RCA 50% non obstructive stenosis - ASA 81 PO daily - Crestor 10mg PO HS - plavix 75mg PO daily - Cardiology consulted, Dr. Cruz - recs appreciated CAP - CXR: interval b/l mid to inferior infiltrates favored over pulmonary venous congestion. cardiomegaly stable. - pt afebrile, no leukocytosis - Ceftriaxone 1g IV daily - Azithromycin 500mg IV daily r/o PE - D-dimer 1898, elevated - CTA contraindicated 2/2 contrast allergy COPD exacerbation - CXR: interval b/l mid to inferior infiltrates favored over pulmonary venous congestion. cardiomegaly stable. - ABG: hypercapnia - duonebs q4 prn - O2 NC 2L A Fib w/ AICD - coreg 6.125 PO BID - plavix 75mg PO daily - monitor on tele PPx GI: pepcid DVT: heparin Pt seen and case reviewed with Dr. Gonzalez
--- NOTE | 2018-04-04 11:27 | CT ---
Date of service: 04/03/2018 PROCEDURE: CT Chest without contrast HISTORY: pt with elevated D dimer and b/l infiltrates COMPARISON: None available. TECHNIQUE: Contiguous axial images were obtained through the chest without intravenous contrast enhancement. Sagittal and coronal reconstructions were performed. Radiation dose: Total exam DLP = 533.0 mGy-cm. This CT exam was performed using one or more of the following dose reduction techniques: Automated exposure control, adjustment of the mA and/or kV according to patient size, and/or use of iterative reconstruction technique. FINDINGS: Minimal bilateral gynecomastia noted. LUNGS: Central airways are clear but they appear smaller than the farm advisor pulmonary veins and therefore pulmonary vascular congestion is identified. Limited atelectasis appreciated related to the bilateral lower lobes with small loculated pleural effusion identified in the bilateral major fissures and in the dependent pleural spaces abutting the bilateral lower lobes. No pericardial effusion or pneumothorax. Central airways appear clear. No definitive pulmonary mass identified. MEDIASTINUM: Upper limits normal thoracic aorta is identified. Cardiomegaly noted with pacemaker leads identified in the right heart once again. Main pulmonary artery is dilated with airway small than the farm advisor pulmonary veins compatible with pulmonary vascular congestion. Main pulmonary artery caliber of 4.0 cm suggests pulmonary artery hypertension and further clinical correlation is advised. Moderate mediastinal lymphadenopathy appreciate with numerous small lymph nodes in the prevascular, aortopulmonary window and paratracheal spaces. A few large lymph nodes are enlarged to 1.9 x 2.6 cm for example. Calcific atherosclerotic changes are seen related to the thoracic aorta. BONES: Although acute fractures appreciable throughout the thoracic spine, thin smooth syndesmophytes are seen diffusely throughout the visualize cervical thoracic and upper lumbar spine in a pattern that may reflect ankylosing spondylosis or diffuse idiopathic skeletal hyperostosis (DISH). UPPER ABDOMEN: Left adrenal nodule 2.7 x 1.6 cm. Follow-up noncontrast MRI is advised with chemical shift. OTHER FINDINGS: None. IMPRESSION: 1. Increased bilateral pleural effusions. Loculated in the bilateral major fissures at least partially in the bilateral dependent right lower lobe pleural spaces as well. No definitive infiltrate although limited compressive atelectasis is appreciated at the bilateral lower lobes. 2. Moderate pulmonary vascular congestion suspected. 3. Moderate mediastinal lymphadenopathy. 4. Dilated main pulmonary artery to 4.0 cm; consider pulmonary hypertension. Further clinical correlation advised.
[2018-04-04] MEDS: Azithromycin 500 MG in Sodium Chloride 0.9% 250 ML IVPB SCH (17:00)
--- NOTE | 2018-04-04 17:12 | CP.PCM.CON ---
History of Present Illness - History of Present Illness History of Present Illness: I was asked to evaluate patient by Dr Gonzalez Patient seen 04/04/18 1700 Patient is a 73 year old male with HTN cardiomyopathy CAD AICD who presents with dyspnea. Symptoms were progressive, but occurred at rest. The patient previously underwent cardiac catheterization and was placed on medical therapy. troponin is negative. Review of Systems - Constitutional Constitutional: absent: As Per HPI, Anorexia, Chills, Daytime Sleepiness, Excessive Sweating, Fatigue, Fever, Frequent Falls, Headache, Increased Appetite, Lethargy, Malaise, Night Sweats, Snoring, Sleep Apnea, Weight Gain, Weight Loss, Weakness, Other - EENT Eyes: absent: As Per HPI, Blind Spots, Blurred Vision, Change in Vision, Decreased Night Vision, Diplopia, Discharge, Dry Eye, Exophthalmos, Floaters, Irritation, Itchy Eyes, Loss of Peripheral Vision, Pain, Photophobia, Requires Corrective Lenses, Sees Flashes, Spots in Vision, Tunnel Vision, Other Visual Disturbances, Loss of Vision, Other Ears: absent: As Per HPI, Decreased Hearing, Ear Discharge, Ear Pain, Tinnitus, Abnormal Hearing, Disequilibrium, Dizziness, Other Nose/Mouth/Throat: absent: As Per HPI, Epistaxis, Nasal Congestion, Nasal Discharge, Nasal Obstruction, Nasal Trauma, Nose Pain, Post Nasal Drip, Sinus Pain, Sinus Pressure, Bleeding Gums, Change in Voice, Dental Pain, Dry Mouth, Dysphagia, Halitosis, Hoarsness, Lip Swelling, Mouth Lesions, Mouth Pain, Odynophagia, Sore Throat, Throat Swelling, Tongue Swelling, Facial Pain, Neck Pain, Neck Mass, Other - Cardiovascular Cardiovascular: Dyspnea - Respiratory Respiratory: Dyspnea, Dyspnea on Exertion - Gastrointestinal Gastrointestinal: absent: As Per HPI, Abdominal Pain, Belching, Bloating, Change in Bowel Habits, Change in Stool Character, Coffee Ground Emesis, Constipation, Cramping, Diarrhea, Dyspepsia, Dysphagia, Early Satiety, Excessive Flatus, Fecal Incontinence, Heartburn, Hematemesis, Hematochezia, Loose Stools, Melena, Nausea, Odynophagia, Temesmus, Vomiting, Other - Genitourinary Genitourinary: absent: As Per HPI, Change in Urinary Stream, Difficulty Urinating, Dysuria, Flank Pain, Hematuria, Pyuria, Nocturia, Urinary Incontinence, Urinary Frequency, Urinary Hesitance, Urinary Urgency, Voiding Freq/Small Amts, Freq UTI, Hx Renal/Bladder Calculi, Hx /Renal Surgery, Bladder Distension, Other - Musculoskeletal Musculoskeletal: absent: As Per HPI, Abnormal Gait, Arthralgias, Atrophy, Back Pain, Deformity, Joint Swelling, Limited Range of Motion, Loss of Height, Muscle Cramps, Muscle Weakness, Myalgias, Neck Pain, Numbness, Radiating Pain into Limb, Stiffness, Tingling, Other - Integumentary Integumentary: absent: As Per HPI, Acne, Alopecia, Bleeding Lesions, Change in Hair, Change in Nails, Change in Pigmentation, Changing Lesions, Dry Skin, Erythema, Furuncle, Hirsutism, Lesions, New Lesions, Non-Healing Lesions, Photosensitivity, Pruritus, Rash, Skin Pain, Skin Ulcer, Sores, Striae, Swelling, Unusual Bruising, Wounds, Jaundice, Other - Neurological Neurological: absent: As Per HPI, Abnormal Gait, Abnormal Hearing, Abnormal Movements, Abnormal Speech, Behavioral Changes, Burning Sensations, Confusion, Convulsions, Disequilibrium, Dizziness, Numbness, Focal Weakness, Frequent Falls, Headaches, Lack of Coordination, Loss of Vision, Memory Loss, Paresthesias, Radicular Pain, Restless Legs, Sensory Deficit, Syncope, Tingling, Tremor, Vertigo, Weakness, Other Visual Disturbances, Other - Psychiatric Psychiatric: absent: As Per HPI, Abnormal Sleep Pattern, Anhedonia, Anxiety, Auditory Hallucinations, Behavioral Changes, Change in Appetite, Change in Libido, Confusion, Depression, Difficulty Concentrating, Hallucinations, Ho micidal Ideation, Hopelessness, Irritability, Memory Loss, Mood Swings, Panic Attacks, Paranoia, Suicidal Ideation, Visual Hallucinations, Tactile Hallucinations, Other - Endocrine Endocrine: absent: As Per HPI, Change in Body Appearance, Change in Libido, Cold Intolorance, Deepening of Voice, Excessive Sweating, Fatigue, Flushing, Heat Intolorance, Increase in Ring/Shoe/Hat Size, Palpitations, Polydipsia, Polyphagia, Polyuria, Other - Hematologic/Lymphatic Hematologic: absent: As Per HPI, Easy Bleeding, Easy Bruising, Lymphadenopathy, Other Past Patient History - Infectious Disease Hx of Infectious Diseases: None - Past Medical History & Family History Past Medical History?: Yes - Past Social History Smoking Status: Former Smoker - CARDIAC Hx Congestive Heart Failure: Yes Hx Hypertension: Yes - PULMONARY Hx Chronic Obstructive Pulmonary Disease (COPD): Yes - NEUROLOGICAL Hx Neurological Disorder: No - HEENT Hx HEENT Problems: Yes Other/Comment: Eye glasses - RENAL Hx Chronic Kidney Disease: No - ENDOCRINE/METABOLIC Hx Endocrine Disorders: No - HEMATOLOGICAL/ONCOLOGICAL Hx Human Immunodeficiency Virus (HIV): No - INTEGUMENTARY Hx Dermatological Problems: No - MUSCULOSKELETAL/RHEUMATOLOGICAL Hx Musculoskeletal Disorders: No Hx Falls: No - GASTROINTESTINAL Hx Gastrointestinal Disorders: No - GENITOURINARY/GYNECOLOGICAL Hx Genitourinary Disorders: Yes Hx Prostate Problems: Yes - PSYCHIATRIC Hx Substance Use: No - SURGICAL HISTORY Hx Surgeries: Yes Hx Herniorrhaphy: Yes Other/Comment: Hx Pacemaker insertion - ANESTHESIA Hx Anesthesia: Yes Hx Anesthesia Reactions: No Hx Malignant Hyperthermia: No Meds Allergies/Adverse Reactions: Allergies Allergy/AdvReac Type Severity Reaction Status Date / Time Iodinated Contrast- Oral and AdvReac ANAPHYLAXIS Verified 04/02/18 18:59 IV Dye - Medications Medications: Current Medications Albuterol/Ipratropium (Duoneb 3 Mg/0.5 Mg (3 Ml) Ud) 3 ml INH RQ4 PRN PRN Reason: Shortness of Breath Last Admin: 04/04/18 02:42 Dose: 3 ml Aspirin (Aspirin Chewable) 81 mg PO DAILY [facility] Last Admin: 04/04/18 09:09 Dose: 81 mg Carvedilol (Coreg) 6.25 mg PO Q12 [facility] Last Admin: 04/04/18 09:09 Dose: 6.25 mg Clopidogrel Bisulfate (Plavix) 75 mg PO DAILY [facility] Last Admin: 04/04/18 09:09 Dose: 75 mg Famotidine (Pepcid) 20 mg PO DAILY [facility] Last Admin: 04/04/18 09:09 Dose: 20 mg Furosemide (Lasix) 40 mg IVP Q12 [facility] Last Admin: 04/04/18 09:09 Dose: 40 mg Heparin Sodium (Porcine) (Heparin) 5,000 units SC Q8 [facility] Last Admin: 04/04/18 13:00 Dose: 5,000 units Azithromycin 500 mg/ Sodium (Chloride) 250 mls @ 250 mls/hr IVPB Q24H [facility]; Protocol Last Admin: 04/03/18 20:12 Dose: 250 mls/hr Ceftriaxone Sodium 1 gm/ (Sodium Chloride) 100 mls @ 100 mls/hr IVPB Q24H [facility]; Protocol Last Admin: 04/04/18 15:20 Dose: 100 mls/hr Influenza Virus Vaccine (Fluzone Quad [id number]) 60 mcg IM .ONCE ONE Stop: 04/05/18 10:01 Lisinopril (Zestril) 10 mg PO DAILY [facility] Last Admin: 04/04/18 09:09 Dose: 10 mg Rosuvastatin Calcium (Crestor) 10 mg PO [facility] Spironolactone (Aldactone) 12.5 mg PO BID [facility] Last Admin: 04/04/18 11:00 Dose: 12.5 mg Tamsulosin HCl (Flomax) 0.4 mg PO DAILY [facility] Last Admin: 04/04/18 09:09 Dose: 0.4 mg Zolpidem Tartrate (Ambien) 5 mg PO [facility] Last Admin: 04/03/18 22:58 Dose: 5 mg Physical Exam - Constitutional Appears: Non-toxic - Head Exam Head Exam: NORMAL INSPECTION - Eye Exam Eye Exam: Normal appearance - ENT Exam ENT Exam: Mucous Membranes Moist - Neck Exam Neck exam: Positive for: Full Rom - Respiratory Exam Respiratory Exam: NORMAL BREATHING PATTERN - Cardiovascular Exam Cardiovascular Exam: REGULAR RHYTHM - GI/Abdominal Exam GI & Abdominal Exam: Normal Bowel Sounds - Rectal Exam Rectal Exam: Deferred - Extremities Exam Extremities exam: Positive for: normal inspection - Back Exam Back exam: NORMAL INSPECTION - Neurological Exam Neurological exam: Alert, Oriented x3 - Psychiatric Exam Psychiatric exam: Normal Affect - Skin Skin Exam: Normal Color Results - Vital Signs Recent Vital Signs: Last Vital Signs Temp 97.2 F L 04/04/18 15:47 Pulse 77 04/04/18 15:47 Resp 20 04/04/18 15:47 BP 127/78 04/04/18 15:47 Pulse Ox 97 04/04/18 15:47 - Labs Result Diagrams: 04/05/18 09:33 04/05/18 09:33 - EKG Data EKG Interpreted by: Myself EKG shows normal: Sinus rhythm Assessment & Plan (1) CHF exacerbation Assessment and Plan: recommend diuresis with lasix Status: Acute Priority: High (2) Chronic systolic dysfunction of left ventricle Assessment and Plan: continue beta charito afterload reduction Status: Acute (3) CAD (coronary artery disease) Assessment and Plan: medical therapy Status: Chronic (4) HTN (hypertension) Assessment and Plan: blood pressure control Status: Chronic
[2018-04-05] MEDS: Albuterol-Ipratrop 3 mg / 0.5 (3 ml) UD INH PRN (09:25)
[2018-04-05] MEDS ORDERED: MethylPREDNISolone 40 mg Vial IVP STA (09:31)
[2018-04-05 09:32] LABS: BASO # 0.1 K/uL (0.0-0.2); BASO % 1.3 % (0.0-2.0); EOS # 0.2 K/uL (0.0-0.7); EOS % 2.3 % (0.0-4.0); HEMOGLOBIN 11.9 g/dL (12.0-18.0); LYMPH # 0.9 K/uL (1.0-4.3); LYMPH % 11.5 % (20.0-40.0); MEAN CELL VOLUME 90.2 fL (80.0-94.0); MEAN CORPUSCULAR HGB CONC 33.3 g/dL (33.0-37.0); MEAN PLATELET VOLUME 8.6 fL (7.2-11.7); MONO # 0.8 K/uL (0.0-0.8); MONO % 10.6 % (0.0-10.0); NEUT # 5.6 K/uL (1.8-7.0); NEUT % 74.3 % (50.0-75.0); RBC 3.97 Mil/uL (4.40-5.90); RED CELL DISTRIBUTION WIDTH 14.2 % (11.5-14.5); WHITE BLOOD COUNT 7.6 K/uL (4.8-10.8)
[2018-04-05 09:41] LABS: ABG ALLEN TEST PO; ARTERIAL BLOOD GAS O2 SAT 99.4 % (95-98); ARTERIAL BLOOD GAS PCO2 65 mm/Hg (35-45); ARTERIAL BLOOD GAS PH 7.43 (7.35-7.45); ARTERIAL BLOOD GAS PO2 91 mm/Hg (80-100); ARTERIAL BLOOD GAS TCO2 45.1 mmol/L (22-28)
--- NOTE | 2018-04-05 09:57 | PCM.RRT ---
[employer] Nurses Assessment - Ventilator Settings Ventilator Respiratory Rate Settin Ventilator Tidal Volume Settin I.Reason for [employer] - A) Acute Change in Patient: (Select all that apply): Acute change in SpO2 less - Neurological Status (Select all that apply): Alert, Responsive, Verbal, Follows Commands. absent: Disoriented, Confused - Respiratory Oxygen Delivery Method: Nasal Cannula @L/min Oxygen Flow Rate: 4 - Constitutional Appears: Well, No Acute Distress - Head Head Exam: ATRAUMATIC, NORMOCEPHALIC - Eyes Eye Exam: EOMI, Normal appearance, PERRL - Respiratory Exam Respiratory Exam: Respiratory Distress. absent: Accessory Muscle Use, Rales, Rhonchi, Wheezes Additional comments: crackles in b/l lung rice, R worse than L abdominal breathing - Cardiovascular Exam Cardiovascular Exam: REGULAR RHYTHM, +S1, +S2. absent: Gallop, Rubs - GI/Abdominal Exam GI & Abdominal Exam: Soft, Normal Bowel Sounds. absent: Distended, Tenderness - Neurological Exam Neurological Exam: Alert, Awake, Oriented x3 - Extremities Exam Extremities Exam: Pedal Edema Plan - Assessment of Findings&Treatment Plan [employer] called on 73yo M with PMH CAD, systolic CHF, COPD, PVD, A.fib, admitted for CHF exacerbation and PNA. [employer] called for chest pain. Pt reports mild chest pain, but complains of shortness of breath. Pt responsive at this time. Vitals: T 98.1, BP 144/73, HR 86, Sat 95% NC 4L, RR 22 Likely acute CHF exacerbation. Lasix 40 IV stat given. Solumedrol 125mg IV stat given. Pt given duoneb treatment. Trops, CBC, CMP, Mg, Phos ordered Stat CXR: improved infiltrates and venous congestion from prior CXR ABG: compensated hypercapnia: 7.43/65/91/37 Pulmonology consulted, Dr. Casiano. Recommended Bipap @ 03/07.
[2018-04-05] MEDS ORDERED: Influenza Vaccine 60 MCG/0.5 ML SYR (3 yr & up) IM ONE (10:00)
[2018-04-05 10:03] LABS: CK-MB 1.63 ng/mL (0.0-3.38)
[2018-04-05 10:09] LABS: ALBUMIN 3.3 g/dL (3.5-5.0); ALT/SGPT 21 U/L (21-72); AST/SGOT 30 U/L (17-59); BLOOD UREA NITROGEN 25 mg/dL (9-20); CALCIUM 8.6 mg/dl (8.6-10.4); GFR NON-AFRICAN AMERICAN > 60
--- NOTE | 2018-04-05 10:36 | RAD ---
Date of service: 04/05/2018 HISTORY: cp COMPARISON: 04/02/2018 FINDINGS: LUNGS: Left infrahilar opacity and right parahilar opacity. This may reflect fluid trapped within the fissures as demonstrated on CT examination of 04/03/2018. Cannot rule out infiltrate. PLEURA: Small left pleural effusion. No definite right pleural effusion. No pneumothorax. CARDIOVASCULAR: Normal heart size. AICD.. No pulmonary vascular congestion. There is atherosclerotic calcification of thoracic aorta. OSSEOUS STRUCTURES: No significant abnormalities. VISUALIZED UPPER ABDOMEN: Normal. OTHER FINDINGS: None. IMPRESSION: Probable fluid trapped within major fissure bilaterally. AICD. No infiltrate.
--- NOTE | 2018-04-05 10:45 | CP.PCM.PN ---
Subjective - Date & Time of Evaluation Date of Evaluation: 04/05/18 Time of Evaluation: 10:40 - Subjective Subjective: Cesilia Jones PGY1 Progress Note for Dr. Gonzalez Pt was examined at bedside this morning. He reports improvement in his shortness of breath. He denies chest pain, dizziness, abdominal pain, nausea, vomiting, diarrhea. Update: [employer] LIBRARIAN was called on pt, who reported worsening shortness of breath and mild chest pain. Please see [employer]IAN note for details. Objective - Vital Signs/Intake and Output Vital Signs (last 24 hours): Temp Pulse Resp BP Pulse Ox 98.1 F 78 20 149/91 H 95 04/05/18 09:15 04/05/18 10:27 04/04/18 23:25 04/05/18 09:33 04/05/18 09:20 Intake and Output: 04/05/18 04/05/18 06:59 18:59 Intake Total 750 Balance 750 - Medications Medications: Current Medications Albuterol/Ipratropium (Duoneb 3 Mg/0.5 Mg (3 Ml) Ud) 3 ml INH RQ4 PRN PRN Reason: Shortness of Breath Last Admin: 04/05/18 09:25 Dose: 3 ml Aspirin (Aspirin Chewable) 81 mg PO DAILY [facility] Last Admin: 04/05/18 09:07 Dose: 81 mg Carvedilol (Coreg) 6.25 mg PO Q12 [facility] Last Admin: 04/05/18 09:08 Dose: 6.25 mg Clopidogrel Bisulfate (Plavix) 75 mg PO DAILY [facility] Last Admin: 04/05/18 09:07 Dose: 75 mg Famotidine (Pepcid) 20 mg PO DAILY [facility] Last Admin: 04/05/18 09:07 Dose: 20 mg Furosemide (Lasix) 40 mg IVP Q12 [facility] Last Admin: 04/05/18 09:08 Dose: 40 mg Heparin Sodium (Porcine) (Heparin) 5,000 units SC Q8 [facility] Last Admin: 04/05/18 06:24 Dose: 5,000 units Piperacillin Sod/Tazobactam (Sod 3.375 gm/ Sodium Chloride) 100 mls @ 200 mls/hr IVPB Q6H [facility]; Protocol Lisinopril (Zestril) 10 mg PO DAILY [facility] Last Admin: 04/05/18 09:08 Dose: 10 mg Rosuvastatin Calcium (Crestor) 10 mg PO [facility] Last Admin: 04/04/18 21:05 Dose: 10 mg Spironolactone (Aldactone) 12.5 mg PO BID [facility] Last Admin: 04/05/18 09:09 Dose: 12.5 mg Tamsulosin HCl (Flomax) 0.4 mg PO DAILY [facility] Last Admin: 04/05/18 09:07 Dose: 0.4 mg Zolpidem Tartrate (Ambien) 5 mg PO [facility] Last Admin: 04/04/18 21:05 Dose: 5 mg - Labs Labs: 04/05/18 09:33 04/05/18 09:33 PT 12.2 SECONDS (9.7-12.2) 04/02/18 19:42 INR 1.1 04/02/18 19:42 APTT 30 SECONDS (21-34) 04/02/18 19:42 - Additional Findings Additional findings: - Head Exam Head Exam: ATRAUMATIC, NORMOCEPHALIC - Eye Exam Eye Exam: EOMI, Normal appearance, PERRL Pupil Exam: NORMAL ACCOMODATION - ENT Exam ENT Exam: Mucous Membranes Moist - Respiratory Exam Respiratory Exam: Decreased breath sounds. NORMAL BREATHING PATTERN. absent: Rales, Wheezes, Rales, Respiratory Distress - Cardiovascular Exam Cardiovascular Exam: Irregular Rhythm, +S1, +S2. absent: Gallop, Rubs, Murmur - GI/Abdominal Exam GI & Abdominal Exam: Soft, Normal Bowel Sounds. absent: Distended, Firm, Tenderness - Extremities Exam Extremities Exam: Pedal Edema, improved from yesterday - Neurological Exam Neurological Exam: Alert, Awake, CN II-XII Intact, Oriented x3 - Psychiatric Exam Psychiatric exam: Normal Affect, Normal Mood - Skin Skin Exam: Dry Assessment and Plan - Assessment and Plan (Free Text) Assessment: 73 year old male admitted for treatment of hypercapnic respiratory distress, with elevated troponins and D-dimer, CXR showing PNA. [employer] called 04/05/18 for shortness of breath. Plan: systolic CHF exacerbation - BNP 12,900 - [employer]IAN called 04/05. given solumedrol 125mg IV, lasix 40mg IV, bipap. see [employer] note for details - Rpt CXR: probable fluid trapped within major fissure b/l. no infiltrate - CT chest: increased b/l pleural effusions. loculated in b/l major fissures. no definitive infiltrate. compressive atelectasis in b/l lower lobes. vascular congestions. dilated main pulm artery. - CXR: interval b/l mid to inferior infiltrates favored over pulmonary venous congestion. cardiomegaly stable. - spironolactone 12.5mg PO BID - coreg 6.125 PO BID - lisinopril 10mg PO daily - lasix 40mg ivp BID - I/Os - daily weights - bipap - Pulm consulted, Dr. Oh melissa appreciated h/o CAD s/p AICD - troponins 0.1540, 0.1550, elevated - D-dimer 1898, elevated - EKG: ventricular paced - ECHO: LVH, EF 20-25%. mild pulmonary HTN, mild MR - s/p cath 12/18: proximal LAD 50% non obstructive stenosis, mid RCA 50% non obstructive stenosis - ASA 81 PO daily - Crestor 10mg PO HS - plavix 75mg PO daily - Cardiology consulted, Dr. Anthony melissa appreciated CAP - Rpt CXR: probable fluid trapped within major fissure b/l. no infiltrate - CT chest: increased b/l pleural effusions. loculated in b/l major fissures. no definitive infiltrate. compressive atelectasis in b/l lower lobes. vascular congestions. dilated main pulm artery. - CXR: interval b/l mid to inferior infiltrates favored over pulmonary venous congestion. cardiomegaly stable. - pt afebrile, no leukocytosis - zosyn 3.375g IV q6h - Pulm consulted, Dr. Oh melissa appreciated r/o PE - D-dimer 1898, elevated - CTA contraindicated 2/2 contrast allergy - CT chest: increased b/l pleural effusions. loculated in b/l major fissures. no definitive infiltrate. compressive atelectasis in b/l lower lobes. vascular congestions. dilated main pulm artery. - Pulm consulted, Dr. Oh melissa appreciated COPD exacerbation - Rpt CXR: probable fluid trapped within major fissure b/l. no infiltrate - CXR: interval b/l mid to inferior infiltrates favored over pulmonary venous congestion. cardiomegaly stable. - ABG: hypercapnia - duonebs q4 prn - O2 NC 2L - bipap PRN - Pulm consulted, Dr. Casiano - recslade appreciated A Fib w/ AICD - coreg 6.125 PO BID - plavix 75mg PO daily - monitor on tele PPx GI: pepcid DVT: heparin Pt seen and case reviewed with Dr. Gonzalez
[2018-04-05] MEDS: Piperacillin/Tazobact 3.375 GM in Sodium Chloride 100 ML IVPB SCH ×3 (11:35→22:31)
--- NOTE | 2018-04-05 17:44 | CP.PCM.PN ---
Subjective - Date & Time of Evaluation Date of Evaluation: 04/05/18 Time of Evaluation: 11:45 - Subjective Subjective: 73 year old male with PMH of Afib, BPH, CAD, CHF, COPD, emphysema, HTN, HLD admitted on 04/02/18 for CHF exacerbation. Initial D-dimer 1898, pBNP 12,900. CTA not done due to allergy to contrast. Pulmonology was consulted this morning foll owing a rapid reponse today in which patient became severely short of breath with mild chest pain. Patient responded to Lasix, Solu-medrol, and Duoneb treatment. Currently satting 95% on 4L NC. Patient states he is feeling much better now, denies SOB. PMH: Afib, BPH, CAD, CHF, COPD, emphysema, HTN, HLD PSH: hernia repair, pacemaker All: contrast dye SocH: former smoker/alcohol use; denies illicit drug use ROS: 10 point ROS negative except as mentioned in HPI Exam Lungs - diminished breath sounds bilaterally, no wheezes, rales, or rhonchi A&P 1. CHF exacerbation - 04/03/[address]: bilateral pleural effusions, loculated in b/l major fissures - 04/05/18 CXR: probable fluid trapping within major fissure bilaterally. No infiltrate. - afebrile, WBC 7.6 - d/c Zosyn - continue medical management - continue Duoneb Objective - Vital Signs/Intake and Output Vital Signs (last 24 hours): Temp Pulse Resp BP Pulse Ox 98.1 F 92 H 20 149/91 H 95 04/05/18 09:15 04/05/18 12:26 04/05/18 07:00 04/05/18 09:33 04/05/18 09:20 Intake and Output: 04/05/18 04/05/18 06:59 18:59 Intake Total 750 400 Balance 750 400 - Medications Medications: Current Medications Albuterol/Ipratropium (Duoneb 3 Mg/0.5 Mg (3 Ml) Ud) 3 ml INH RQ4 PRN PRN Reason: Shortness of Breath Last Admin: 04/05/18 09:25 Dose: 3 ml Aspirin (Aspirin Chewable) 81 mg PO DAILY [facility] Last Admin: 04/05/18 09:07 Dose: 81 mg Carvedilol (Coreg) 6.25 mg PO Q12 [facility] Last Admin: 04/05/18 09:08 Dose: 6.25 mg Clopidogrel Bisulfate (Plavix) 75 mg PO DAILY [facility] Last Admin: 04/05/18 09:07 Dose: 75 mg Famotidine (Pepcid) 20 mg PO DAILY [facility] Last Admin: 04/05/18 09:07 Dose: 20 mg Furosemide (Lasix) 40 mg IVP Q12 [facility] Last Admin: 04/05/18 09:08 Dose: 40 mg Heparin Sodium (Porcine) (Heparin) 5,000 units SC Q8 [facility] Last Admin: 04/05/18 13:57 Dose: 5,000 units Piperacillin Sod/Tazobactam (Sod 3.375 gm/ Sodium Chloride) 100 mls @ 200 mls/hr IVPB Q6H [facility]; Protocol Last Admin: 04/05/18 11:35 Dose: 200 mls/hr Lisinopril (Zestril) 10 mg PO DAILY [facility] Last Admin: 04/05/18 09:08 Dose: 10 mg Rosuvastatin Calcium (Crestor) 10 mg PO HS [facility] Last Admin: 04/04/18 21:05 Dose: 10 mg Spironolactone (Aldactone) 12.5 mg PO BID [facility] Last Admin: 04/05/18 09:09 Dose: 12.5 mg Tamsulosin HCl (Flomax) 0.4 mg PO DAILY [facility] Last Admin: 04/05/18 09:07 Dose: 0.4 mg Zolpidem Tartrate (Ambien) 5 mg PO HS [facility] Last Admin: 04/04/18 21:05 Dose: 5 mg - Labs Labs: 04/05/18 09:33 04/05/18 09:33 PT 12.2 SECONDS (9.7-12.2) 04/02/18 19:42 INR 1.1 04/02/18 19:42 APTT 30 SECONDS (21-34) 04/02/18 19:42
[2018-04-06] MEDS: Piperacillin/Tazobact 3.375 GM in Sodium Chloride 100 ML IVPB SCH ×4 (05:15→23:30)
--- NOTE | 2018-04-06 12:33 | CP.PCM.PN ---
Subjective - Date & Time of Evaluation Date of Evaluation: 04/06/18 Time of Evaluation: 12:31 - Subjective Subjective: Patient seen and examined at bedside. Patient offers no complaints at this time. He denies any fevers, chills, chest pain, abdominal pain, n/v, changes in bowel habits or urinary symptoms. His SOB is the same he states. Objective - Vital Signs/Intake and Output Vital Signs (last 24 hours): Temp Pulse Resp BP Pulse Ox 98.0 F 91 H 18 91/54 L 96 04/06/18 07:00 04/06/18 08:00 04/06/18 07:00 04/06/18 09:29 04/06/18 07:00 Intake and Output: 04/06/18 04/06/18 06:59 18:59 Intake Total 200 Output Total 500 Balance -300 - Medications Medications: Current Medications Albuterol/Ipratropium (Duoneb 3 Mg/0.5 Mg (3 Ml) Ud) 3 ml INH RQ4 PRN PRN Reason: Shortness of Breath Last Admin: 04/05/18 09:25 Dose: 3 ml Aspirin (Aspirin Chewable) 81 mg PO DAILY [facility] Last Admin: 04/06/18 09:23 Dose: 81 mg Carvedilol (Coreg) 6.25 mg PO Q12 [facility] Last Admin: 04/06/18 09:29 Dose: Not Given Clopidogrel Bisulfate (Plavix) 75 mg PO DAILY [facility] Last Admin: 04/06/18 09:23 Dose: 75 mg Famotidine (Pepcid) 20 mg PO DAILY [facility] Last Admin: 04/06/18 09:30 Dose: 20 mg Furosemide (Lasix) 40 mg IVP Q12 [facility] Last Admin: 04/06/18 09:29 Dose: Not Given Heparin Sodium (Porcine) (Heparin) 5,000 units SC Q8 [facility] Last Admin: 04/06/18 05:16 Dose: 5,000 units Piperacillin Sod/Tazobactam (Sod 3.375 gm/ Sodium Chloride) 100 mls @ 200 mls/hr IVPB Q6H [facility]; Protocol Last Admin: 04/06/18 11:34 Dose: 200 mls/hr Lisinopril (Zestril) 10 mg PO DAILY [facility] Last Admin: 04/06/18 09:30 Dose: Not Given Rosuvastatin Calcium (Crestor) 10 mg PO HS [facility] Last Admin: 04/05/18 21:16 Dose: 10 mg Spironolactone (Aldactone) 12.5 mg PO BID [facility] Last Admin: 04/06/18 09:23 Dose: 12.5 mg Tamsulosin HCl (Flomax) 0.4 mg PO DAILY [facility] Last Admin: 04/06/18 09:28 Dose: 0.4 mg Zolpidem Tartrate (Ambien) 5 mg PO [facility] Last Admin: 04/05/18 21:17 Dose: 5 mg - Labs Labs: 04/05/18 09:33 04/05/18 09:33 PT 12.2 SECONDS (9.7-12.2) 04/02/18 19:42 INR 1.1 04/02/18 19:42 APTT 30 SECONDS (21-34) 04/02/18 19:42 - Additional Findings Additional findings: - Head Exam Head Exam: ATRAUMATIC, NORMOCEPHALIC - Eye Exam Eye Exam: EOMI, Normal appearance, PERRL Pupil Exam: NORMAL ACCOMODATION - ENT Exam ENT Exam: Mucous Membranes Moist - Respiratory Exam Respiratory Exam: Decreased breath sounds. NORMAL BREATHING PATTERN. absent: Rales, Wheezes, Rales, Respiratory Distress - Cardiovascular Exam Cardiovascular Exam: Irregular Rhythm, +S1, +S2. absent: Gallop, Rubs, Murmur - GI/Abdominal Exam GI & Abdominal Exam: Soft, Normal Bowel Sounds. absent: Distended, Firm, Tenderness - Extremities Exam Extremities Exam: Pedal Edema, improved from yesterday - Neurological Exam Neurological Exam: Alert, Awake, CN II-XII Intact, Oriented x3 - Psychiatric Exam Psychiatric exam: Normal Affect, Normal Mood - Skin Skin Exam: Dry Assessment and Plan - Assessment and Plan (Free Text) Assessment: 73 year old male admitted for treatment of hypercapnic respiratory distress, with elevated troponins and D-dimer, CXR showing PNA. SITE INTERPRETER called 04/05/18 for shortness of breath. Plan: systolic CHF exacerbation - BNP 12,900 - SITE INTERPRETER called 04/05. given solumedrol 125mg IV, lasix 40mg IV, bipap. see SITE INTERPRETER note for details - Rpt CXR: probable fluid trapped within major fissure b/l. no infiltrate - CT chest: increased b/l pleural effusions. loculated in b/l major fissures. no definitive infiltrate. compressive atelectasis in b/l lower lobes. vascular congestions. dilated main pulm artery. - CXR: interval b/l mid to inferior infiltrates favored over pulmonary venous congestion. cardiomegaly stable. - spironolactone 12.5mg PO BID - coreg 6.125 PO BID - lisinopril 10mg PO daily - lasix 40mg ivp BID - I/Os - daily weights - bipap - Pulm consulted, Dr. Oh melissa appreciated h/o CAD s/p AICD - troponins 0.1540, 0.1550, elevated - D-dimer 1898, elevated - EKG: ventricular paced - ECHO: LVH, EF 20-25%. mild pulmonary HTN, mild MR - s/p cath 12/18: proximal LAD 50% non obstructive stenosis, mid RCA 50% non obstructive stenosis - ASA 81 PO daily - Crestor 10mg PO HS - plavix 75mg PO daily - Cardiology consulted, Dr. Anthony melissa appreciated CAP - Rpt CXR: probable fluid trapped within major fissure b/l. no infiltrate - CT chest: increased b/l pleural effusions. loculated in b/l major fissures. no definitive infiltrate. compressive atelectasis in b/l lower lobes. vascular congestions. dilated main pulm artery. - CXR: interval b/l mid to inferior infiltrates favored over pulmonary venous congestion. cardiomegaly stable. - pt afebrile, no leukocytosis - zosyn 3.375g IV q6h (Started on 04/05/18) - Pulm consulted, Dr. Oh melissa appreciated r/o PE - D-dimer 1898, elevated - CTA contraindicated 2/2 contrast allergy - CT chest: increased b/l pleural effusions. loculated in b/l major fissures. no definitive infiltrate. compressive atelectasis in b/l lower lobes. vascular congestions. dilated main pulm artery. - Pulm consulted, Dr. Oh melissa appreciated COPD exacerbation - Rpt CXR: probable fluid trapped within major fissure b/l. no infiltrate - CXR: interval b/l mid to inferior infiltrates favored over pulmonary venous congestion. cardiomegaly stable. - ABG: hypercapnia - duonebs q4 prn - O2 NC 2L - bipap PRN - Pulm consulted, Dr. Casiano - recslade appreciated A Fib w/ AICD - coreg 6.125 PO BID - plavix 75mg PO daily - monitor on tele PPx GI: pepcid DVT: heparin Dispo: Tentative DC tomorrow. Pt seen and case reviewed with Dr. Carlos Griffiths, PGY-2
--- NOTE | 2018-04-06 12:38 | CP.PCM.PN ---
Subjective - Date & Time of Evaluation Date of Evaluation: 04/06/18 Time of Evaluation: 10:00 - Subjective Subjective: patient has less dyspnea Objective - Vital Signs/Intake and Output Vital Signs (last 24 hours): Temp Pulse Resp BP Pulse Ox 98.0 F 91 H 18 91/54 L 96 04/06/18 07:00 04/06/18 08:00 04/06/18 07:00 04/06/18 09:29 04/06/18 07:00 Intake and Output: 04/06/18 04/06/18 06:59 18:59 Intake Total 200 Output Total 500 Balance -300 - Medications Medications: Current Medications Albuterol/Ipratropium (Duoneb 3 Mg/0.5 Mg (3 Ml) Ud) 3 ml INH RQ4 PRN PRN Reason: Shortness of Breath Last Admin: 04/05/18 09:25 Dose: 3 ml Aspirin (Aspirin Chewable) 81 mg PO DAILY [facility] Last Admin: 04/06/18 09:23 Dose: 81 mg Carvedilol (Coreg) 6.25 mg PO Q12 [facility] Last Admin: 04/06/18 09:29 Dose: Not Given Clopidogrel Bisulfate (Plavix) 75 mg PO DAILY [facility] Last Admin: 04/06/18 09:23 Dose: 75 mg Famotidine (Pepcid) 20 mg PO DAILY [facility] Last Admin: 04/06/18 09:30 Dose: 20 mg Furosemide (Lasix) 40 mg IVP Q12 [facility] Last Admin: 04/06/18 09:29 Dose: Not Given Heparin Sodium (Porcine) (Heparin) 5,000 units SC Q8 [facility] Last Admin: 04/06/18 05:16 Dose: 5,000 units Piperacillin Sod/Tazobactam (Sod 3.375 gm/ Sodium Chloride) 100 mls @ 200 mls/hr IVPB Q6H [facility]; Protocol Last Admin: 04/06/18 11:34 Dose: 200 mls/hr Lisinopril (Zestril) 10 mg PO DAILY [facility] Last Admin: 04/06/18 09:30 Dose: Not Given Rosuvastatin Calcium (Crestor) 10 mg PO HS [facility] Last Admin: 04/05/18 21:16 Dose: 10 mg Spironolactone (Aldactone) 12.5 mg PO BID [facility] Last Admin: 04/06/18 09:23 Dose: 12.5 mg Tamsulosin HCl (Flomax) 0.4 mg PO DAILY [facility] Last Admin: 04/06/18 09:28 Dose: 0.4 mg Zolpidem Tartrate (Ambien) 5 mg PO [facility] Last Admin: 04/05/18 21:17 Dose: 5 mg - Labs Labs: 04/05/18 09:33 04/05/18 09:33 PT 12.2 SECONDS (9.7-12.2) 04/02/18 19:42 INR 1.1 04/02/18 19:42 APTT 30 SECONDS (21-34) 04/02/18 19:42 - Constitutional Appears: Non-toxic - Head Exam Head Exam: NORMAL INSPECTION - Eye Exam Eye Exam: Normal appearance - ENT Exam ENT Exam: Mucous Membranes Moist - Neck Exam Neck Exam: Full ROM - Respiratory Exam Respiratory Exam: Decreased Breath Sounds - Cardiovascular Exam Cardiovascular Exam: REGULAR RHYTHM - GI/Abdominal Exam GI & Abdominal Exam: Normal Bowel Sounds - Rectal Exam Rectal Exam: Deferred - Extremities Exam Extremities Exam: absent: Pedal Edema - Back Exam Back Exam: NORMAL INSPECTION - Neurological Exam Neurological Exam: Alert - Psychiatric Exam Psychiatric exam: Normal Affect - Skin Skin Exam: Normal Color Assessment and Plan (1) CHF exacerbation Assessment & Plan: chronic systolic dysfunction continue medical therapy Status: Acute (2) Chronic systolic dysfunction of left ventricle Assessment & Plan: s/p AICD Status: Acute (3) CAD (coronary artery disease) Assessment & Plan: medical therapy Status: Chronic (4) HTN (hypertension) Status: Chronic
--- NOTE | 2018-04-06 16:45 | CP.PCM.PN ---
Subjective - Date & Time of Evaluation Date of Evaluation: 04/06/18 Time of Evaluation: 15:45 - Subjective Subjective: Patient seen and examined Patient is awake and responsive No shortness of breath No chest pain Denies any cough Afebrile Continue diuretics Continue present treatment Cardiology workup Objective - Vital Signs/Intake and Output Vital Signs (last 24 hours): Temp Pulse Resp BP Pulse Ox 98.0 F 91 H 18 91/54 L 96 04/06/18 07:00 04/06/18 08:00 04/06/18 07:00 04/06/18 09:29 04/06/18 07:00 Intake and Output: 04/06/18 04/06/18 06:59 18:59 Intake Total 200 Output Total 500 Balance -300 - Medications Medications: Current Medications Albuterol/Ipratropium (Duoneb 3 Mg/0.5 Mg (3 Ml) Ud) 3 ml INH RQ4 PRN PRN Reason: Shortness of Breath Last Admin: 04/05/18 09:25 Dose: 3 ml Aspirin (Aspirin Chewable) 81 mg PO DAILY [facility] Last Admin: 04/06/18 09:23 Dose: 81 mg Carvedilol (Coreg) 6.25 mg PO Q12 [facility] Last Admin: 04/06/18 09:29 Dose: Not Given Clopidogrel Bisulfate (Plavix) 75 mg PO DAILY [facility] Last Admin: 04/06/18 09:23 Dose: 75 mg Famotidine (Pepcid) 20 mg PO DAILY [facility] Last Admin: 04/06/18 09:30 Dose: 20 mg Furosemide (Lasix) 40 mg IVP Q12 [facility] Last Admin: 04/06/18 09:29 Dose: Not Given Piperacillin Sod/Tazobactam (Sod 3.375 gm/ Sodium Chloride) 100 mls @ 200 mls/hr IVPB Q6H [facility]; Protocol Last Admin: 04/06/18 11:34 Dose: 200 mls/hr Lisinopril (Zestril) 10 mg PO DAILY [facility] Last Admin: 04/06/18 09:30 Dose: Not Given Rosuvastatin Calcium (Crestor) 10 mg PO HS [facility] Last Admin: 04/05/18 21:16 Dose: 10 mg Spironolactone (Aldactone) 12.5 mg PO BID [facility] Last Admin: 04/06/18 09:23 Dose: 12.5 mg Tamsulosin HCl (Flomax) 0.4 mg PO DAILY [facility] Last Admin: 04/06/18 09:28 Dose: 0.4 mg Zolpidem Tartrate (Ambien) 5 mg PO [facility] Last Admin: 04/05/18 21:17 Dose: 5 mg - Labs Labs: 04/05/18 09:33 04/05/18 09:33 PT 12.2 SECONDS (9.7-12.2) 04/02/18 19:42 INR 1.1 04/02/18 19:42 APTT 30 SECONDS (21-34) 04/02/18 19:42
[2018-04-07] MEDS: Piperacillin/Tazobact 3.375 GM in Sodium Chloride 100 ML IVPB SCH ×4 (05:00→22:39)
--- NOTE | 2018-04-07 08:30 | CP.PCM.PN ---
Subjective - Date & Time of Evaluation Date of Evaluation: 04/07/18 Time of Evaluation: 10:00 - Subjective Subjective: Patient seen and examined at bedside. Patient offers no complaints at this time. He denies any fevers, chills, chest pain, abdominal pain, n/v, changes in bowel habits or urinary symptoms. His SOB is the same he states. Objective - Vital Signs/Intake and Output Vital Signs (last 24 hours): Temp Pulse Resp BP Pulse Ox 98.8 F 90 18 112/74 96 04/07/18 07:00 04/07/18 07:58 04/07/18 07:00 04/07/18 07:00 04/07/18 07:00 - Medications Medications: Current Medications Albuterol/Ipratropium (Duoneb 3 Mg/0.5 Mg (3 Ml) Ud) 3 ml INH RQ4 PRN PRN Reason: Shortness of Breath Last Admin: 04/05/18 09:25 Dose: 3 ml Aspirin (Aspirin Chewable) 81 mg PO DAILY [facility] Last Admin: 04/06/18 09:23 Dose: 81 mg Carvedilol (Coreg) 6.25 mg PO Q12 [facility] Last Admin: 04/06/18 21:30 Dose: 6.25 mg Clopidogrel Bisulfate (Plavix) 75 mg PO DAILY [facility] Last Admin: 04/06/18 09:23 Dose: 75 mg Famotidine (Pepcid) 20 mg PO DAILY [facility] Last Admin: 04/06/18 09:30 Dose: 20 mg Furosemide (Lasix) 40 mg IVP Q12 [facility] Last Admin: 04/06/18 21:31 Dose: 40 mg Piperacillin Sod/Tazobactam (Sod 3.375 gm/ Sodium Chloride) 100 mls @ 200 mls/hr IVPB Q6H [facility]; Protocol Last Admin: 04/07/18 05:00 Dose: 200 mls/hr Lisinopril (Zestril) 10 mg PO DAILY [facility] Last Admin: 04/06/18 09:30 Dose: Not Given Rosuvastatin Calcium (Crestor) 10 mg PO HS [facility] Last Admin: 04/06/18 21:30 Dose: 10 mg Spironolactone (Aldactone) 12.5 mg PO BID [facility] Last Admin: 04/06/18 18:07 Dose: 12.5 mg Tamsulosin HCl (Flomax) 0.4 mg PO DAILY [facility] Last Admin: 04/06/18 09:28 Dose: 0.4 mg Zolpidem Tartrate (Ambien) 5 mg PO HS [facility] Last Admin: 04/06/18 21:30 Dose: 5 mg - Labs Labs: 04/05/18 09:33 04/05/18 09:33 PT 12.2 SECONDS (9.7-12.2) 04/02/18 19:42 INR 1.1 04/02/18 19:42 APTT 30 SECONDS (21-34) 04/02/18 19:42 - Additional Findings Additional findings: - Head Exam Head Exam: ATRAUMATIC, NORMOCEPHALIC - Eye Exam Eye Exam: EOMI, Normal appearance, PERRL Pupil Exam: NORMAL ACCOMODATION - ENT Exam ENT Exam: Mucous Membranes Moist - Respiratory Exam Respiratory Exam: Decreased breath sounds, Wheezing (Mild), NORMAL BREATHING PATTERN. absent: Rales,Rales, Respiratory Distress - Cardiovascular Exam Cardiovascular Exam: Irregular Rhythm, +S1, +S2. absent: Gallop, Rubs, Murmur - GI/Abdominal Exam GI & Abdominal Exam: Soft, Normal Bowel Sounds. absent: Distended, Firm, Tenderness - Extremities Exam Extremities Exam: Pedal Edema, improved from yesterday - Neurological Exam Neurological Exam: Alert, Awake, CN II-XII Intact, Oriented x3 - Psychiatric Exam Psychiatric exam: Normal Affect, Normal Mood - Skin Skin Exam: Dry Assessment and Plan - Assessment and Plan (Free Text) Assessment: 73 year old male admitted for treatment of hypercapnic respiratory distress, with elevated troponins and D-dimer, CXR showing PNA. BODY WORKER called 04/05/18 for shortness of breath. Plan: systolic CHF exacerbation - BNP 12,900 - BODY WORKER called 04/05. given solumedrol 125mg IV, lasix 40mg IV, bipap. see BODY WORKER note for details - Rpt CXR: probable fluid trapped within major fissure b/l. no infiltrate - CT chest: increased b/l pleural effusions. loculated in b/l major fissures. no definitive infiltrate. compressive atelectasis in b/l lower lobes. vascular congestions. dilated main pulm artery. - CXR: interval b/l mid to inferior infiltrates favored over pulmonary venous congestion. cardiomegaly stable. - spironolactone 12.5mg PO BID - coreg 6.125 PO BID - lisinopril 10mg PO daily - lasix 40mg ivp BID - I/Os - daily weights - bipap - Pulm consulted, Dr. Oh melissa appreciated h/o CAD s/p AICD - troponins 0.1540, 0.1550, elevated - D-dimer 1898, elevated - EKG: ventricular paced - ECHO: LVH, EF 20-25%. mild pulmonary HTN, mild MR - s/p cath 12/18: proximal LAD 50% non obstructive stenosis, mid RCA 50% non o bstructive stenosis - ASA 81 PO daily - Crestor 10mg PO HS - plavix 75mg PO daily - Cardiology consulted, Dr. Anthony melissa appreciated CAP - Rpt CXR: probable fluid trapped within major fissure b/l. no infiltrate - CT chest: increased b/l pleural effusions. loculated in b/l major fissures. no definitive infiltrate. compressive atelectasis in b/l lower lobes. vascular c ongestions. dilated main pulm artery. - CXR: interval b/l mid to inferior infiltrates favored over pulmonary venous congestion. cardiomegaly stable. - pt afebrile, no leukocytosis - zosyn 3.375g IV q6h (Started on 04/05/18) - Pulm consulted, Dr. Oh melissa appreciated r/o PE - D-dimer 1898, elevated - CTA contraindicated 2/2 contrast allergy - CT chest: increased b/l pleural effusions. loculated in b/l major fissures. no definitive infiltrate. compressive atelectasis in b/l lower lobes. vascular congestions. dilated main pulm artery. - Pulm consulted, Dr. Oh melissa appreciated COPD exacerbation - Rpt CXR: probable fluid trapped within major fissure b/l. no infiltrate - CXR: interval b/l mid to inferior infiltrates favored over pulmonary venous congestion. cardiomegaly stable. - ABG: hypercapnia - duonebs q4 prn - O2 NC 2L - bipap PRN - Pulm consulted, Dr. Oh melissa appreciated A Fib w/ AICD - coreg 6.125 PO BID - plavix 75mg PO daily - monitor on tele PPx GI: pepcid DVT: heparin Dispo: Will hold for 1 more day due to wheezing on exam. Tentative DC tomorrow.
[2018-04-08] MEDS: Piperacillin/Tazobact 3.375 GM in Sodium Chloride 100 ML IVPB SCH ×4 (05:19→22:58)
--- NOTE | 2018-04-08 11:17 | CP.PCM.PN ---
Subjective - Date & Time of Evaluation Date of Evaluation: 04/08/18 Time of Evaluation: 11:15 - Subjective Subjective: Cesilia Jones PGY1 Progress Note for Dr. Gonzalez Pt was examined at bedside this morning. He reports improvement in his chest pain and shortness of breath. Pt denies dizziness, abdominal pain, nausea, vomiting, diarrhea, dysuria. Objective - Vital Signs/Intake and Output Vital Signs (last 24 hours): Temp Pulse Resp BP Pulse Ox 97.3 F L 71 18 114/72 99 04/08/18 07:00 04/08/18 07:58 04/08/18 07:00 04/08/18 09:38 04/08/18 07:00 Intake and Output: 04/08/18 04/08/18 06:59 18:59 Intake Total 100 Balance 100 - Medications Medications: Current Medications Aspirin (Aspirin Chewable) 81 mg PO DAILY [facility] Last Admin: 04/08/18 09:37 Dose: 81 mg Carvedilol (Coreg) 6.25 mg PO Q12 [facility] Last Admin: 04/07/18 21:50 Dose: 6.25 mg Clopidogrel Bisulfate (Plavix) 75 mg PO DAILY [facility] Last Admin: 04/08/18 09:37 Dose: 75 mg Famotidine (Pepcid) 20 mg PO DAILY [facility] Last Admin: 04/08/18 09:37 Dose: 20 mg Furosemide (Lasix) 40 mg IVP Q12 [facility] Last Admin: 04/08/18 09:38 Dose: 40 mg Piperacillin Sod/Tazobactam (Sod 3.375 gm/ Sodium Chloride) 100 mls @ 200 m ls/hr IVPB Q6H [facility]; Protocol Last Admin: 04/08/18 05:19 Dose: 200 mls/hr Lisinopril (Zestril) 10 mg PO DAILY [facility] Last Admin: 04/07/18 10:19 Dose: 10 mg Rosuvastatin Calcium (Crestor) 10 mg PO HS [facility] Last Admin: 04/07/18 22:39 Dose: 10 mg Spironolactone (Aldactone) 12.5 mg PO BID [facility] Last Admin: 04/07/18 17:42 Dose: 12.5 mg Tamsulosin HCl (Flomax) 0.4 mg PO DAILY [facility] Last Admin: 04/08/18 09:37 Dose: 0.4 mg Zolpidem Tartrate (Ambien) 5 mg PO HS [facility] Last Admin: 04/07/18 21:50 Dose: 5 mg - Labs Labs: 04/05/18 09:33 04/05/18 09:33 PT 12.2 SECONDS (9.7-12.2) 04/02/18 19:42 INR 1.1 04/02/18 19:42 APTT 30 SECONDS (21-34) 04/02/18 19:42 - Additional Findings Additional findings: - Head Exam Head Exam: ATRAUMATIC, NORMOCEPHALIC - Eye Exam Eye Exam: EOMI, Normal appearance, PERRL Pupil Exam: NORMAL ACCOMODATION - ENT Exam ENT Exam: Mucous Membranes Moist - Respiratory Exam Respiratory Exam: Decreased breath sounds, Wheezing (Mild), NORMAL BREATHING PATTERN. absent: Rales,Rales, Respiratory Distress - Cardiovascular Exam Cardiovascular Exam: Irregular Rhythm, +S1, +S2. absent: Gallop, Rubs, Murmur - GI/Abdominal Exam GI & Abdominal Exam: Soft, Normal Bowel Sounds. absent: Distended, Firm, Tenderness - Extremities Exam Extremities Exam: Pedal Edema, improved from yesterday - Neurological Exam Neurological Exam: Alert, Awake, CN II-XII Intact, Oriented x3 - Psychiatric Exam Psychiatric exam: Normal Affect, Normal Mood - Skin Skin Exam: Dry Assessment and Plan - Assessment and Plan (Free Text) Assessment: 73 year old male admitted for treatment of hypercapnic respiratory distress, with elevated troponins and D-dimer, CXR showing PNA. HAUL TRUCK DRIVER called 04/05/18 for shortness of breath. Plan: systolic CHF exacerbation - BNP 12,900 - HAUL TRUCK DRIVER called 04/05. given solumedrol 125mg IV, lasix 40mg IV, bipap. see HAUL TRUCK DRIVER note for details - Rpt CXR: probable fluid trapped within major fissure b/l. no infiltrate - CT chest: increased b/l pleural effusions. loculated in b/l major fissures. no definitive infiltrate. compressive atelectasis in b/l lower lobes. vascular congestions. dilated main pulm artery. - CXR: interval b/l mid to inferior infiltrates favored over pulmonary venous congestion. cardiomegaly stable. - spironolactone 12.5mg PO BID - coreg 6.125 PO BID - lisinopril 10mg PO daily - lasix 40mg ivp BID - I/Os - daily weights - bipap - Pulm consulted, Dr. Oh melissa appreciated h/o CAD s/p AICD - troponins 0.1540, 0.1550, elevated - D-dimer 1898, elevated - EKG: ventricular paced - ECHO: LVH, EF 20-25%. mild pulmonary HTN, mild MR - s/p cath 12/18: proximal LAD 50% non obstructive stenosis, mid RCA 50% non obstructive stenosis - ASA 81 PO daily - Crestor 10mg PO HS - plavix 75mg PO daily - Cardiology consulted, Dr. Anthony melissa appreciated CAP - Rpt CXR: probable fluid trapped within major fissure b/l. no infiltrate - CT chest: increased b/l pleural effusions. loculated in b/l major fissures. no definitive infiltrate. compressive atelectasis in b/l lower lobes. vascular congestions. dilated main pulm artery. - CXR: interval b/l mid to inferior infiltrates favored over pulmonary venous congestion. cardiomegaly stable. - pt afebrile, no leukocytosis - zosyn 3.375g IV q6h (Started on 04/05/18) - Pulm consulted, Dr. Oh melissa appreciated r/o PE - D-dimer 1898, elevated - CTA contraindicated 2/2 contrast allergy - CT chest: increased b/l pleural effusions. loculated in b/l major fissures. no definitive infiltrate. compressive atelectasis in b/l lower lobes. vascular congestions. dilated main pulm artery. - Pulm consulted, Dr. Oh melissa appreciated COPD exacerbation - Rpt CXR: probable fluid trapped within major fissure b/l. no infiltrate - CXR: interval b/l mid to inferior infiltrates favored over pulmonary venous congestion. cardiomegaly stable. - ABG: hypercapnia - duonebs q4 prn - O2 NC 2L - bipap PRN - Pulm consulted, Dr. Oh melissa appreciated A Fib w/ AICD - coreg 6.125 PO BID - plavix 75mg PO daily - monitor on tele PPx GI: pepcid DVT: heparin Dispo: Likely D/C tomorrow Case discussed with Dr. Gonzalez
--- NOTE | 2018-04-08 13:42 | CARD ---
APPROVED REPORT Date of service: 04/05/2018 EKG Measurement Heart [id number] <Conclusion> Ventricular-paced rhythm with occasional and consecutive premature ventricular complexes Abnormal ECG
--- NOTE | 2018-04-08 14:45 | CARD ---
APPROVED REPORT Date of service: 04/03/2018 EKG Measurement Heart [id number] <Conclusion> Ventricular-paced rhythm Abnormal ECG
--- NOTE | 2018-04-08 15:21 | CP.PCM.PN ---
<Jamey Vidal - Last Filed: 04/08/18 15:14> Subjective - Date & Time of Evaluation Date of Evaluation: 04/08/18 Time of Evaluation: 10:55 - Subjective Subjective: Pulmonology note for Dr. Casiano Patient was seen and examined at bedside this morning. Patient has been refusing lab work. He is feeling much better and hopeful that he will go home soon. Denies fever, chills, cough, SOB, chest pain, hemoptysis. Physical Exam General: No acute distress. Afebrile. SpO2 95-99% on 3LPM NC Lungs: clear to auscultation bilaterally, no wheeze, rales or rhonchi Cardio: irregular rhythm, normal S1/S2, no m/r/g Extremities: pedal edema b/l Objective - Vital Signs/Intake and Output Vital Signs (last 24 hours): Temp Pulse Resp BP Pulse Ox 97.3 F L 86 18 163/74 H 99 04/08/18 07:00 04/08/18 11:44 04/08/18 07:00 04/08/18 11:44 04/08/18 07:00 Intake and Output: 04/08/18 04/08/18 06:59 18:59 Intake Total 100 Balance 100 - Medications Medications: Current Medications Aspirin (Aspirin Chewable) 81 mg PO DAILY [facility] Last Admin: 04/08/18 09:37 Dose: 81 mg Carvedilol (Coreg) 6.25 mg PO Q12 [facility] Last Admin: 04/08/18 11:43 Dose: 6.25 mg Clopidogrel Bisulfate (Plavix) 75 mg PO DAILY [facility] Last Admin: 04/08/18 09:37 Dose: 75 mg Famotidine (Pepcid) 20 mg PO DAILY [facility] Last Admin: 04/08/18 09:37 Dose: 20 mg Furosemide (Lasix) 40 mg IVP Q12 [facility] Last Admin: 04/08/18 09:38 Dose: 40 mg Piperacillin Sod/Tazobactam (Sod 3.375 gm/ Sodium Chloride) 100 mls @ 200 mls/hr IVPB Q6H [facility]; Protocol Last Admin: 04/08/18 12:46 Dose: 200 mls/hr Lisinopril (Zestril) 10 mg PO DAILY [facility] Last Admin: 04/08/18 11:43 Dose: 10 mg Rosuvastatin Calcium (Crestor) 10 mg PO HS [facility] Last Admin: 04/07/18 22:39 Dose: 10 mg Spironolactone (Aldactone) 12.5 mg PO BID [facility] Last Admin: 04/08/18 12:46 Dose: 12.5 mg Tamsulosin HCl (Flomax) 0.4 mg PO DAILY [facility] Last Admin: 04/08/18 09:37 Dose: 0.4 mg Zolpidem Tartrate (Ambien) 5 mg PO HS [facility] Last Admin: 04/07/18 21:50 Dose: 5 mg - Labs Labs: 04/05/18 09:33 04/05/18 09:33 PT 12.2 SECONDS (9.7-12.2) 04/02/18 19:42 INR 1.1 04/02/18 19:42 APTT 30 SECONDS (21-34) 04/02/18 19:42 Assessment and Plan (1) COPD (chronic obstructive pulmonary disease) Assessment & Plan: stable from pulmonary standpoint continue current medical management Status: Chronic (2) CHF exacerbation Assessment & Plan: continue management as per cardio Status: Acute <Atif Casiano S - Last Filed: 04/08/18 18:13> Objective - Vital Signs/Intake and Output Vital Signs (last 24 hours): Temp Pulse Resp BP Pulse Ox 97.9 F 53 L 20 135/63 99 04/08/18 15:00 04/08/18 15:00 04/08/18 15:00 04/08/18 15:00 04/08/18 15:00 Intake and Output: 04/08/18 04/08/18 06:59 18:59 Intake Total 100 Balance 100 - Medications Medications: Current Medications Aspirin (Aspirin Chewable) 81 mg PO DAILY [facility] Last Admin: 04/08/18 09:37 Dose: 81 mg Carvedilol (Coreg) 6.25 mg PO Q12 [facility] Last Admin: 04/08/18 11:43 Dose: 6.25 mg Clopidogrel Bisulfate (Plavix) 75 mg PO DAILY [facility] Last Admin: 04/08/18 09:37 Dose: 75 mg Famotidine (Pepcid) 20 mg PO DAILY [facility] Last Admin: 04/08/18 09:37 Dose: 20 mg Furosemide (Lasix) 40 mg IVP Q12 [facility] Last Admin: 04/08/18 09:38 Dose: 40 mg Piperacillin Sod/Tazobactam (Sod 3.375 gm/ Sodium Chloride) 100 mls @ 200 mls/hr IVPB Q6H [facility]; Protocol Last Admin: 04/08/18 12:46 Dose: 200 mls/hr Lisinopril (Zestril) 10 mg PO DAILY [facility] Last Admin: 04/08/18 11:43 Dose: 10 mg Rosuvastatin Calcium (Crestor) 10 mg PO HS [facility] Last Admin: 04/07/18 22:39 Dose: 10 mg Spironolactone (Aldactone) 12.5 mg PO BID [facility] Last Admin: 04/08/18 12:46 Dose: 12.5 mg Tamsulosin HCl (Flomax) 0.4 mg PO DAILY [facility] Last Admin: 04/08/18 09:37 Dose: 0.4 mg Zolpidem Tartrate (Ambien) 5 mg PO [facility] Last Admin: 04/07/18 21:50 Dose: 5 mg - Labs Labs: 04/05/18 09:33 04/05/18 09:33 PT 12.2 SECONDS (9.7-12.2) 04/02/18 19:42 INR 1.1 04/02/18 19:42 APTT 30 SECONDS (21-34) 04/02/18 19:42 Attending/Attestation - Attestation I have personally seen and examined this patient.: Yes I have fully participated in the care of the patient.: Yes I have reviewed all pertinent clinical information, including history, physical exam and plan: Yes Notes (Text): 04/08/18 18:13 the patient seen and examined Continue present treatment for now Clinically much improved
[2018-04-09 01:14] VITALS: PULSE 87
[2018-04-09] MEDS: Piperacillin/Tazobact 3.375 GM in Sodium Chloride 100 ML IVPB SCH (04:45)
--- NOTE | 2018-04-09 07:44 | CP.PCM.DIS ---
Provider - Provider Date of Admission: 04/02/18 21:28 Attending physician: Warren Gonzalez Jr, MD Consults: 04/03/18 09:09 Cardiology Consult Routine Comment: Consulting Provider: Souleymane Cruz Consulting Physician: Souleymane Cruz Reason for Consult: pt with h/o CAD, a.fib here for CHF exacerbation, elevated troponins 04/05/18 09:34 Pulmonology Consult Routine Comment: Consulting Provider: Atif Casiano Consulting Physician: Atif Casiano Reason for Consult: copd Time Spent in preparation of Discharge (in minutes): 70 Hospital Course - Lab Results Lab Results: Most Recent Lab Values WBC 7.6 K/uL (4.8-10.8) 04/05/18 09:33 RBC 3.97 Mil/uL (4.40-5.90) L 04/05/18 09:33 Hgb 11.9 g/dL (12.0-18.0) L 04/05/18 09:33 Hct 35.8 % (35.0-51.0) 04/05/18 09:33 MCV 90.2 fL (80.0-94.0) 04/05/18 09:33 MCH 30.0 pg (27.0-31.0) 04/05/18 09:33 MCHC 33.3 g/dL (33.0-37.0) 04/05/18 09:33 RDW 14.2 % (11.5-14.5) 04/05/18 09:33 Plt Count 246 K/uL (130-400) 04/05/18 09:33 MPV 8.6 fL (7.2-11.7) 04/05/18 09:33 Neut % (Auto) 74.3 % (50.0-75.0) 04/05/18 09:33 Lymph % (Auto) 11.5 % (20.0-40.0) L 04/05/18 09:33 [place] % (Auto) 10.6 % (0.0-10.0) H 04/05/18 09:33 Eos % (Auto) 2.3 % (0.0-4.0) 04/05/18 09:33 Baso % (Auto) 1.3 % (0.0-2.0) 04/05/18 09:33 Neut # (Auto) 5.6 K/uL (1.8-7.0) 04/05/18 09:33 Lymph # (Auto) 0.9 K/uL (1.0-4.3) L 04/05/18 09:33 [place] # (Auto) 0.8 K/uL (0.0-0.8) 04/05/18 09:33 Eos # (Auto) 0.2 K/uL (0.0-0.7) 04/05/18 09:33 Baso # (Auto) 0.1 K/uL (0.0-0.2) 04/05/18 09:33 Neutrophils % (Manual) 91 % (50-75) H 04/02/18 19:42 Lymphocytes % (Manual) 1 % (20-40) L 04/02/18 19:42 Monocytes % (Manual) 8 % (0-10) 04/02/18 19:42 Platelet Estimate Normal (NORMAL) 04/02/18 19:42 RBC Morphology Normal 04/02/18 19:42 PT 12.2 SECONDS (9.7-12.2) 04/02/18 19:42 INR 1.1 04/02/18 19:42 APTT 30 SECONDS (21-34) 04/02/18 19:42 D-Dimer, Quantitative 1898 ng/mlDDU (0-243) H 04/02/18 19:42 Puncture Site Rra 04/05/18 09:38 pCO2 65 mm/Hg (35-45) H 04/05/18 09:38 pO2 91 mm/Hg (80-100) 04/05/18 09:38 HCO3 37.0 mmol/L (21-28) H 04/05/18 09:38 ABG pH 7.43 (7.35-7.45) 04/05/18 09:38 ABG Total CO2 45.1 mmol/L (22-28) H 04/05/18 09:38 ABG O2 Saturation 99.4 % (95-98) H 04/05/18 09:38 ABG Base Excess 15.5 mmol/L (-2.0-3.0) H 04/05/18 09:38 Maicol Test Po 04/05/18 09:38 ABG Potassium 3.9 mmol/L (3.6-5.2) 04/05/18 09:38 A-a O2 Difference 77.0 mm/Hg 04/05/18 09:38 Respiratory Index 0.8 04/05/18 09:38 Sodium 138.0 mmol/l (132-148) 04/05/18 09:38 Chloride 100.0 mmol/L (98-107) 04/05/18 09:38 Glucose 111 mg/dl (75-110) H 04/05/18 09:38 Lactate 0.8 mmol/L (0.7-2.1) 04/05/18 09:38 Liter Flow 4.0 04/05/18 09:38 FiO2 35.0 % 04/05/18 09:38 Sodium 137 mmol/L (132-148) 04/05/18 09:33 Potassium 4.4 mmol/L (3.6-5.2) 04/05/18 09:33 Chloride 91 mmol/L (98-107) L 04/05/18 09:33 Carbon Dioxide 42 mmol/L (22-30) H* 04/05/18 09:33 Anion Gap 8 (10-20) L 04/05/18 09:33 BUN 25 mg/dL (9-20) H 04/05/18 09:33 Creatinine 0.9 mg/dL (0.8-1.5) 04/05/18 09:33 Est GFR ( Amer) > 60 04/05/18 09:33 Est GFR (Non-Af Amer) > 60 04/05/18 09:33 Random Glucose 124 mg/dL (75-110) H D 04/05/18 09:33 Calcium 8.6 mg/dl (8.6-10.4) 04/05/18 09:33 Phosphorus 3.7 mg/dL (2.5-4.5) 04/05/18 09:33 Magnesium 1.8 mg/dL (1.6-2.3) 04/05/18 09:33 Total Bilirubin 0.3 mg/dL (0.2-1.3) 04/05/18 09:33 AST 30 U/L (17-59) 04/05/18 09:33 ALT 21 U/L (21-72) 04/05/18 09:33 Alkaline Phosphatase 64 U/L (38-126) 04/05/18 09:33 Total Creatine Kinase 34 U/L (55-170) L 04/05/18 09:33 CK-MB (Mass) 1.63 ng/mL (0.0-3.38) 04/05/18 09:33 Troponin I 0.1130 ng/mL (0.00-0.120) 04/05/18 09:33 NT-Pro-B Natriuret Pep 10489 pg/mL (0-900) H 04/02/18 19:42 Total Protein 6.6 g/dL (6.3-8.3) 04/05/18 09:33 Albumin 3.3 g/dL (3.5-5.0) L 04/05/18 09:33 Globulin 3.2 gm/dL (2.2-3.9) 04/05/18 09:33 Albumin/Globulin Ratio 1.0 (1.0-2.1) 04/05/18 09:33 Arterial Blood Potassium 3.9 mmol/L (3.6-5.2) 04/05/18 09:38 Urine Color Yellow (YELLOW) 04/03/18 04:38 Urine Clarity Clear (Clear) 04/03/18 04:38 Urine pH 5.0 (5.0-8.0) 04/03/18 04:38 Ur Specific [place] 1.009 (1.003-1.030) 04/03/18 04:38 Urine Protein 2+ mg/dL (NEGATIVE) H 04/03/18 04:38 Urine Glucose (UA) Normal mg/dL (Normal) 04/03/18 04:38 Urine Ketones Negative mg/dL (NEGATIVE) 04/03/18 04:38 Urine Blood Negative (NEGATIVE) 04/03/18 04:38 Urine Nitrate Negative (NEGATIVE) 04/03/18 04:38 Urine Bilirubin Negative (NEGATIVE) 04/03/18 04:38 Urine Urobilinogen Normal mg/dL (0.2-1.0) 04/03/18 04:38 Ur Leukocyte Esterase Trace Ana/uL (Negative) 04/03/18 04:38 Urine WBC (Auto) 27 /hpf (0-5) H 04/03/18 04:38 Urine RBC (Auto) 1 /hpf (0-3) 04/03/18 04:38 Ur Squamous Epith Cells < 1 /hpf (0-5) 04/03/18 04:38 Urine Bacteria Rare (<OCC) 04/03/18 04:38 Hyaline Casts 6-10 /lpf (0-2) H 04/03/18 04:38 Digoxin 0.6 ng/mL (0.8-2.0) L 04/03/18 06:28 - Hospital Course Hospital Course: Upon Admission: Patient is a 73 year old male w/ PMHx of Afib, PVD, CHF, CAD, HTN, HLD, COPD, BPH who presents to ED today with complaints of progressive SOB over the past few days. Patient reports increasing SOB with associated chest and upper back pressure so severe, he called EMS to bring him to the ED for evaluation and treatment. Patient reports a history of similar symptoms in the past, requiring emergent treatment to "drain water from his chest". Patient reports he is compliant with all medications as prescribed. Denies radiating pain to jaw/arms, nausea, diarrhea. CXR showed interval b/l mid to inferior infiltrates favored over pulmonary venous congestion. cardiomegaly stable. D-dimer was elevated. Pt was admitted for CHF exacerbation and elevated D-dimer. Hospital Course: Pt was restarted on home medications and placed on duonebs. IV antibiotics were given. CT angio was contraindicated due to pt anaphylactic allergy to contrast. CT chest showed increased b/l pleural effusions. loculated in b/l major fissures. no definitive infiltrate. compressive atelectasis in b/l lower lobes. vascular congestion. dilated main pulm artery. Cardiology was consulted and recommended continuation of medical therapy. on 04/05/18, [facility] was called for shortness of breath and chest pain. EKG showed ventricular pacing, stable from prior. CXR showed probable fluid trapped within major fissure b/l. no infiltrate. Pt was given stat IV lasix, solumedrol, and duonebs. Pulmonology was consulted and recommended contination of medical therapy. Pt breathing improved throughout the course of his admission. Pt was deemed stable for discharge Upon Discharge: Pt was deemed stable for discharge to home. Pt was given instructions to follow up with Dr. Gonzalez and to take medications as prescribed. Pt understood instructions and agreed. Discharge Exam - Head Exam Head Exam: ATRAUMATIC, NORMAL INSPECTION, NORMOCEPHALIC - Eye Exam Eye Exam: EOMI, Normal appearance, PERRL - Neck Exam Neck exam: Normal Inspection - Respiratory Exam Respiratory Exam: Clear to PA & Lateral, NORMAL BREATHING PATTERN. absent: Rales, Rhonchi, Wheezes - Cardiovascular Exam Cardiovascular Exam: REGULAR RHYTHM, +S1, +S2. absent: Gallop, Rubs, Systolic Murmur - GI/Abdominal Exam GI & Abdominal Exam: Normal Bowel Sounds, Soft. absent: Distended, Firm, Tenderness - Extremities Exam Extremities exam: normal inspection - Neurological Exam Neurological exam: Alert, Oriented x3 - Psychiatric Exam Psychiatric exam: Normal Affect, Normal Mood - Skin Skin Exam: Normal Color Discharge Plan - Discharge Medications Prescriptions: Aspirin [Aspirin Chewable] 81 mg PO DAILY #30 chew Atorvastatin [Lipitor] 20 mg PO DAILY #30 tab Carvedilol [Coreg] 6.25 mg PO Q12 #60 tab Clopidogrel [Plavix] 75 mg PO DAILY #30 tab Digoxin 1 tab PO DAILY #30 tab Fluticasone/Umeclidin/Vilanter [Trelegy Ellipta 100-62.5-25] 1 each IH DAILY 30 Days #1 blst.w.dev Furosemide [Lasix] 40 mg PO DAILY #30 tab hydrALAZINE [Apresoline] 10 mg PO BID 30 Days #60 tab Lisinopril [Zestril] 10 mg PO DAILY #30 tab Spironolactone [Aldactone] 12.5 mg PO BID #60 tab Tamsulosin [Flomax] 0.4 mg PO DAILY #30 cap Zolpidem [Ambien] 5 mg PO HS #30 tab - Follow Up Plan Condition: GOOD Disposition: HOME/ ROUTINE Instructions: Heart Healthy Diet, Heart Failure, Adult (DC), Exacerbation of COPD (DC), Atorvastatin, Carvedilol, Clopidogrel, Digoxin, Furosemide, Lisinopril, Tamsulosin, Zolpidem, Fluticasone, Umeclidinium, and Vilanterol Additional Instructions: Please follow up with Dr. Gonzalez within 7 days. Please call to make an appointment. Please take the medications we are prescribing you. Please return to the hospital if symptoms return. Take care and be well.
[2018-04-09 08:03] VITALS: RESP 18; TEMP 97.7; O2SAT 94
[2018-04-09 09:18] VITALS: BP 114/72
== END 2018-04-09 11:09 | disposition home or self-care (01) | DRG 291 ==
LOC: C.ER 18:28 → C.9E 21:28 → C.6T 23:49
PROVIDERS: ADMIT Internal Medicine; ATTEND Internal Medicine
DX: I11.0 Hypertensive heart disease with heart failure (principal); J18.9 Pneumonia, unspecified organism; I50.23 Acute on chronic systolic (congestive) heart failure; I25.10 Atherosclerotic heart disease of native coronary artery without angina pectoris; I42.9 Cardiomyopathy, unspecified; E78.5 Hyperlipidemia, unspecified; N40.0 Benign prostatic hyperplasia without lower urinary tract symptoms; I48.91 Unspecified atrial fibrillation; J43.9 Emphysema, unspecified; I73.9 Peripheral vascular disease, unspecified; R79.1 Abnormal coagulation profile; R74.8 Abnormal levels of other serum enzymes; Z87.891 Personal history of nicotine dependence; Z95.0 Presence of cardiac pacemaker

== ENCOUNTER 2018-04-24 05:48 | Inpatient (IN) | payer MEDICARE ==
[2018-04-24 05:48] VITALS: PULSE 90; BMI 23.7
[2018-04-24] MEDS ORDERED: Albuterol-Ipratrop 3 mg / 0.5 (3 ml) UD ONE ×2 (06:02→06:29)
--- NOTE | 2018-04-24 06:16 | C.PDOC ---
Time Seen by Provider: 04/24/18 06:16 Chief Complaint (Nursing): Shortness Of Breath Past Medical History Vital Signs: Last Vital Signs Temp 98.3 F 04/24/18 06:02 Pulse 89 04/24/18 06:02 Resp 32 H 04/24/18 06:02 BP 159/135 H 04/24/18 06:02 Pulse Ox 88 L 04/24/18 06:02 - Medical History PMH: Atrial Fibrillation, Benign Prostatic Hyperplasia, CAD, CHF, COPD, Emphysema, HTN, Hyperlipidemia, Peripheral Edema Denies: HIV, Chronic Kidney Disease Surgical History: Hernia Repair, Pacemaker - [facility] Procedures ASSISTANCE WITH RESPIRATORY VENTILATION, <24 HRS, CPAP (03/03/18) FLUOROSCOPY OF LEFT HEART USING LOW OSMOLAR CONTRAST (12/08/17) FLUOROSCOPY OF MULT COR ART USING L OSM CONTRAST (12/08/17) INSERTION OF ENDOTRACHEAL AIRWAY INTO TRACHEA, VIA OPENING (12/08/17) MEASURE OF CARDIAC SAMPL & PRESSURE, L HEART, PERC APPROACH (12/08/17) RESPIRATORY VENTILATION, GREATER THAN 96 CONSECUTIVE HOURS (12/08/17) Family History: States: Unknown Family Hx - Social History Hx Alcohol Use: No Hx Substance Use: No - Immunization History Hx Tetanus Toxoid Vaccination: No Hx Influenza Vaccination: Yes Hx Pneumococcal Vaccination: No ED Course And Treatment O2 Sat by Pulse Oximetry: 88 Disposition Counseled Patient/Family Regarding: Studies Performed, Diagnosis - Disposition Disposition Time: 06:16
--- NOTE | 2018-04-24 06:25 | C.PDOC ---
History Of Present Illness 73 year old male with multiple medical problems presents to the ER with a complaint of SOB. Patient is a poor historian. He was already given nebulizer treatment by the time of my evaluation. Patient was here on 04/02/18 with admission. He is on digoxin. Denies fever, c/o intermittent chest pain. <Jena Dwyer - Last Filed: 04/24/18 07:09> <Luiz Fitzpatrick - Last Filed: 04/24/18 06:42> History Per: Patient History/Exam Limitations: no limitations Onset/Duration Of Symptoms: Days Current Symptoms Are (Timing): Still Present Current Respiratory Medications: See Home Med List Associated Symptoms: denies: Fever, Chest Pain Recent travel outside of the [place]: No <Jena Dwyer - Last Filed: 04/24/18 07:09> <Aleshia Martínez - Last Filed: 04/24/18 08:04> Time Seen by Provider: 04/24/18 06:16 Chief Complaint (Nursing): Shortness Of Breath Past Medical History Vital Signs: Last Vital Signs Temp 98.3 F 04/24/18 06:02 Pulse 89 04/24/18 06:02 Resp 41 H 04/24/18 06:31 BP 159/135 H 04/24/18 06:02 Pulse Ox 88 L 04/24/18 06:30 - [facility] Procedures ASSISTANCE WITH RESPIRATORY VENTILATION, <24 HRS, CPAP (03/03/18) FLUOROSCOPY OF LEFT HEART USING LOW OSMOLAR CONTRAST (12/08/17) FLUOROSCOPY OF MULT COR ART USING L OSM CONTRAST (12/08/17) INSERTION OF ENDOTRACHEAL AIRWAY INTO TRACHEA, VIA OPENING (12/08/17) MEASURE OF CARDIAC SAMPL & PRESSURE, L HEART, PERC APPROACH (12/08/17) RESPIRATORY VENTILATION, GREATER THAN 96 CONSECUTIVE HOURS (12/08/17) <Luiz Fitzpatrick - Last Filed: 04/24/18 06:42> Reviewed: Historical Data, Nursing Documentation, Vital Signs Vital Signs: Last Vital Signs Temp 98.3 F 04/24/18 06:02 Pulse 89 04/24/18 06:02 Resp 32 H 04/24/18 06:02 BP 159/135 H 04/24/18 06:02 Pulse Ox 88 L 04/24/18 06:02 - Medical History PMH: Atrial Fibrillation, Benign Prostatic Hyperplasia, CAD, CHF, COPD, Emphysema, HTN, Hyperlipidemia, Peripheral Edema Denies: HIV, Chronic Kidney Disease Surgical History: Hernia Repair, Pacemaker - [facility] Procedures ASSISTANCE WITH RESPIRATORY VENTILATION, <24 HRS, CPAP (03/03/18) FLUOROSCOPY OF LEFT HEART USING LOW OSMOLAR CONTRAST (12/08/17) FLUOROSCOPY OF MULT COR ART USING L OSM CONTRAST (12/08/17) INSERTION OF ENDOTRACHEAL AIRWAY INTO TRACHEA, VIA OPENING (12/08/17) MEASURE OF CARDIAC SAMPL & PRESSURE, L HEART, PERC APPROACH (12/08/17) RESPIRATORY VENTILATION, GREATER THAN 96 CONSECUTIVE HOURS (12/08/17) Family History: States: Unknown Family Hx - Social History Hx Alcohol Use: No Hx Substance Use: No - Immunization History Hx Tetanus Toxoid Vaccination: No Hx Influenza Vaccination: Yes Hx Pneumococcal Vaccination: No <Jena Dwyer - Last Filed: 04/24/18 07:09> Vital Signs: Last Vital Signs Temp 99.1 F 04/24/18 06:49 Pulse 97 H 04/24/18 07:12 Resp 33 H 04/24/18 07:12 BP 157/88 H 04/24/18 07:12 Pulse Ox 99 04/24/18 07:12 - [facility] Procedures ASSISTANCE WITH RESPIRATORY VENTILATION, <24 HRS, CPAP (03/03/18) FLUOROSCOPY OF LEFT HEART USING LOW OSMOLAR CONTRAST (12/08/17) FLUOROSCOPY OF MULT COR ART USING L OSM CONTRAST (12/08/17) INSERTION OF ENDOTRACHEAL AIRWAY INTO TRACHEA, VIA OPENING (12/08/17) MEASURE OF CARDIAC SAMPL & PRESSURE, L HEART, PERC APPROACH (12/08/17) RESPIRATORY VENTILATION, GREATER THAN 96 CONSECUTIVE HOURS (12/08/17) <Aleshia Martínez - Last Filed: 04/24/18 08:04> Review Of Systems Constitutional: Negative for: Fever, Chills Cardiovascular: Negative for: Chest Pain, Palpitations Respiratory: Positive for: Shortness of Breath. Negative for: Cough Gastrointestinal: Negative for: Nausea, Vomiting Neurological: Negative for: Weakness, Numbness <Jena Dwyer - Last Filed: 04/24/18 07:09> Physical Exam - Physical Exam Appears: Other (Tachypneic) Skin: Normal Color, Warm, Dry Head: Atraumatic, Normacephalic Eye(s): bilateral: Normal Inspection Oral Mucosa: Moist Neck: Normal, No Midline Cervical Tenderness, No Paracervical Tenderness, Supple Chest: Other (Pacemaker to left upper chest wall, prominence of left thoracic rib cage) Cardiovascular: Rhythm Regular Respiratory: No Rhonchi, No Wheezing, Other (Bibasilar crackles) Gastrointestinal/Abdominal: Soft, No Tenderness, No Distention Extremity: Other (+2 bilateral pitting edema to lower extremities) Neurological/Psych: Oriented x3, Normal Speech <Jena Dwyer - Last Filed: 04/24/18 07:09> ED Course And Treatment - Laboratory Results Result Diagrams: 04/24/18 06:41 O2 Sat by Pulse Oximetry: 88 <Jena Dwyer - Last Filed: 04/24/18 07:09> - Laboratory Results Result Diagrams: 04/24/18 06:41 04/24/18 06:41 Lab Results: Puncture Site Rb 04/24/18 06:50 pCO2 51 mm/Hg (35-45) H 04/24/18 06:50 pO2 320 mm/Hg (80-100) H 04/24/18 06:50 HCO3 25.2 mmol/L (21-28) 04/24/18 06:50 ABG pH 7.33 (7.35-7.45) L 04/24/18 06:50 ABG Total CO2 28.5 mmol/L (22-28) H 04/24/18 06:50 ABG O2 Saturation 100.2 % (95-98) H 04/24/18 06:50 ABG Base Excess 0.2 mmol/L (-2.0-3.0) 04/24/18 06:50 Maicol Test Na 04/24/18 06:50 ABG Potassium 4.0 mmol/L (3.6-5.2) 04/24/18 06:50 A-a O2 Difference 329.0 mm/Hg 04/24/18 06:50 Respiratory Index 1.0 04/24/18 06:50 Sodium 139.0 mmol/l (132-148) 04/24/18 06:50 Chloride 108.0 mmol/L (98-107) H 04/24/18 06:50 Glucose 88 mg/dl (75-110) 04/24/18 06:50 Lactate 0.6 mmol/L (0.7-2.1) L 04/24/18 06:50 Vent Mode Bipap 04/24/18 06:50 FiO2 100.0 % 04/24/18 06:50 Inspiratory BiPAP 10 04/24/18 06:50 Expiratory BiPAP 5 04/24/18 06:50 PT 12.1 SECONDS (9.7-12.2) 04/24/18 06:41 INR 1.1 04/24/18 06:41 APTT 36 SECONDS (21-34) H 04/24/18 06:41 Troponin I 0.1020 ng/mL (0.00-0.120) 04/24/18 06:41 NT-Pro-B Natriuret Pep 17083 pg/mL (0-900) H 04/24/18 06:41 Total Bilirubin 0.6 mg/dL (0.2-1.3) 04/24/18 06:41 AST 26 U/L (17-59) 04/24/18 06:41 ALT 15 U/L (21-72) L D 04/24/18 06:41 Alkaline Phosphatase 56 U/L (38-126) 04/24/18 06:41 Total Protein 6.9 g/dL (6.3-8.3) 04/24/18 06:41 Albumin 3.6 g/dL (3.5-5.0) 04/24/18 06:41 Globulin 3.3 gm/dL (2.2-3.9) 04/24/18 06:41 Albumin/Globulin Ratio 1.1 (1.0-2.1) 04/24/18 06:41 <Aleshia Martínez - Last Filed: 04/24/18 08:04> Critical Care Time - Critical Care Note Total Time (in mins): 30 Documented critical care: time excludes all time spent performing seperately billable procedures. <Luiz Fitzpatrick - Last Filed: 04/24/18 06:42> Medical Decision Making Medical Decision Makin:55 Case d/w Dr. Gonzalez who accepted patient to his service, requests resident be called. 08:02 Resident aware of admission. <Aleshia Martínez - Last Filed: 04/24/18 08:04> Disposition <Luiz Fitzpatrick - Last Filed: 04/24/18 06:42> - Disposition Disposition Time: 07:07 <Jena Dwyer - Last Filed: 04/24/18 07:09> Counseled Patient/Family Regarding: Studies Performed, Diagnosis - Disposition Disposition Time: 08:00 <Aleshia Martínez - Last Filed: 04/24/18 08:04> - Disposition Disposition: HOSPITALIZED Condition: SERIOUS - Clinical Impression Clinical Impression: CHF exacerbation - PA / [employer] / Resident Statement MD/DO has reviewed & agrees with the documentation as recorded. - Scribe Statement The provider has reviewed the documentation as recorded by the Scribe Edgardo Elmore All medical record entries made by the Scribe were at my direction and personally dictated by me. I have reviewed the chart and agree that the record accurately reflects my personal performance of the history, physical exam, medical decision making, and the department course for this patient. I have also personally directed, reviewed, and agree with the discharge instructions and disposition. <Jena Dwyer - Last Filed: 04/24/18 07:09> Physician Patient Turnover Patient Signed Over To: Aleshia Martínez Handoff Comments: dispo to icu vs tele <Jena Dwyer - Last Filed: 04/24/18 07:09>
[2018-04-24 06:44] LABS: BASO # 0.1 K/uL (0.0-0.2); EOS # 0.1 K/uL (0.0-0.7); EOS % 0.8 % (0.0-4.0); HEMOGLOBIN 11.1 g/dL (12.0-18.0); LYMPH # 1.1 K/uL (1.0-4.3); LYMPH % 11.1 % (20.0-40.0); MEAN CELL VOLUME 91.1 fL (80.0-94.0); MEAN CORPUSCULAR HEMOGLOBIN 29.6 pg (27.0-31.0); MEAN CORPUSCULAR HGB CONC 32.5 g/dL (33.0-37.0); MEAN PLATELET VOLUME 10.1 fL (7.2-11.7); MONO % 10.1 % (0.0-10.0); NEUT # 7.7 K/uL (1.8-7.0); NRBC % 0.1 % (0.0-2.0); RBC 3.76 Mil/uL (4.40-5.90); RED CELL DISTRIBUTION WIDTH 14.8 % (11.5-14.5)
[2018-04-24 06:53] LABS: ARTERIAL BLOOD GAS HCO3 25.2 mmol/L (21-28); ARTERIAL BLOOD GAS PCO2 51 mm/Hg (35-45); ARTERIAL BLOOD GAS PH 7.33 (7.35-7.45); ARTERIAL BLOOD GAS PO2 320 mm/Hg (80-100)
[2018-04-24 06:54] LABS: ARTERIAL BLOOD GAS O2 SAT 100.2 % (95-98); ARTERIAL BLOOD GAS TCO2 28.5 mmol/L (22-28)
[2018-04-24 06:56] LABS: INR 1.1; PROTHROMBIN TIME 12.1 SECONDS (9.7-12.2)
[2018-04-24 07:10] LABS: B-TYPE NATRIURETIC PEPTIDE 19000 pg/mL (0-900)
[2018-04-24] MEDS: Albuterol-Ipratrop 3 mg / 0.5 (3 ml) UD IH SCH (07:11)
[2018-04-24 07:14] LABS: ALB/GLOB RATIO 1.1 (1.0-2.1); ALBUMIN 3.6 g/dL (3.5-5.0); ALT/SGPT 15 U/L (21-72); AST/SGOT 26 U/L (17-59); BLOOD UREA NITROGEN 20 mg/dL (9-20); CALCIUM 8.5 mg/dl (8.6-10.4); GFR NON-AFRICAN AMERICAN > 60
[2018-04-24 08:39] LABS: URINE BILIRUBIN NEGATIVE (NEGATIVE); URINE BLOOD NEGATIVE (NEGATIVE); URINE CLARITY Clear (Clear); URINE COLOR Yellow (YELLOW); URINE GLUCOSE (UA) NORMAL (Normal); URINE PROTEIN 2+ mg/dL (NEGATIVE); URINE UROBILINOGEN NORMAL mg/dL (0.2-1.0)
[2018-04-24 08:43] LABS: URINE LEUKOCYTE ESTERASE 2+ Leu/uL (Negative)
--- NOTE | 2018-04-24 09:10 | CP.PCM.HP ---
History of Present Illness - History of Present Illness History of Present Illness: PGY-1 Medicine Progress Note for Dr. Gonzalez's service CC: SOB HPI: Patient is a 73 yo male w/ PMH Afib, PVD, CHF, CAD, HTN, HLD, COPD, BPH admitted to hospital for shortness of breath. Patient states the difficulty breathing started 3 days ago but has increased to the point where needed to come to hospital. Limited ROS as patient is not compliant with questioning. Patient was placed on bipap and given lasix which improved oxygenation. Patient makes minimal attempt to participate in questioning therefore limited information as collected. Of note patient was recently discharged from hospital but did not fill his prescriptions as is very non-compliant with routine meds. PMH-Afib, PVD, CHF, CAD, HTN, HLD, COPD, BPH Pmhx: Afib, PVD, CHF, CAD, HTN, HLD, COPD, BPH Pshx: herniorrhaphy, pacemaker Meds: See discharge summary on 04-09-18 Allergies: contrast SocHx: former smoker/alcohol use, denies drug use Present on Admission - Present on Admission Any Indicators Present on Admission: No Review of Systems - Review of Systems Systems not reviewed;Unavailable: Other (patient not participating in questioning) Past Patient History - Infectious Disease Hx of Infectious Diseases: None - Past Medical History & Family History Past Medical History?: Yes - Past Social History Smoking Status: Former Smoker - CARDIAC Hx Atrial Fibrillation: Yes Hx Congestive Heart Failure: Yes Hx Hypertension: Yes Hx Pacemaker: Yes Hx Peripheral Edema: Yes - PULMONARY Hx Chronic Obstructive Pulmonary Disease (COPD): Yes Hx Emphysema: Yes - NEUROLOGICAL Hx Neurological Disorder: No - HEENT Hx HEENT Problems: Yes Other/Comment: Eye glasses - RENAL Hx Chronic Kidney Disease: No - ENDOCRINE/METABOLIC Hx Endocrine Disorders: No - HEMATOLOGICAL/ONCOLOGICAL Hx Human Immunodeficiency Virus (HIV): No - INTEGUMENTARY Hx Dermatological Problems: No - MUSCULOSKELETAL/RHEUMATOLOGICAL Hx Musculoskeletal Disorders: No Hx Falls: No - GASTROINTESTINAL Hx Gastrointestinal Disorders: No - GENITOURINARY/GYNECOLOGICAL Hx Genitourinary Disorders: Yes Hx Prostate Problems: Yes - PSYCHIATRIC Hx Substance Use: No - SURGICAL HISTORY Hx Surgeries: Yes Hx Herniorrhaphy: Yes Other/Comment: Hx Pacemaker insertion - ANESTHESIA Hx Anesthesia: Yes Hx Anesthesia Reactions: No Hx Malignant Hyperthermia: No Meds Allergies/Adverse Reactions: Allergies Allergy/AdvReac Type Severity Reaction Status Date / Time Iodinated Contrast- Oral and AdvReac ANAPHYLAXIS Verified 04/24/18 06:09 IV Dye Physical Exam - Constitutional Appears: No Acute Distress Additional comments: on bipap, improved - Head Exam Head Exam: NORMAL INSPECTION, NORMOCEPHALIC - Eye Exam Eye Exam: EOMI, Normal appearance. absent: Nystagmus, Scleral icterus - ENT Exam ENT Exam: Mucous Membranes Dry - Respiratory Exam Respiratory Exam: Decreased Breath Sounds, Rales. absent: Clear to Auscultation Bilateral, Rhonchi, Wheezes, NORMAL BREATHING PATTERN - Cardiovascular Exam Cardiovascular Exam: REGULAR RHYTHM, +S1, +S2. absent: Tachycardia - GI/Abdominal Exam GI & Abdominal Exam: Normal Bowel Sounds, Soft. absent: Diminished Bowel Sounds, Distended, Firm, Tenderness - Extremities Exam Extremities exam: Positive for: pedal edema. Negative for: calf tenderness - Neurological Exam Neurological exam: Alert, Oriented x3 - Psychiatric Exam Psychiatric exam: Normal Affect, Normal Mood - Skin Skin Exam: Dry, Intact, Normal Color Results - Vital Signs Recent Vital Signs: Last Vital Signs Temp 99.1 F 04/24/18 06:49 Pulse 97 H 04/24/18 07:12 Resp 33 H 04/24/18 07:12 BP 157/88 H 04/24/18 07:12 Pulse Ox 99 04/24/18 07:12 - Labs Result Diagrams: 04/24/18 06:41 04/24/18 06:41 Labs: Laboratory Results - last 24 hr 04/24/18 04/24/18 04/24/18 06:41 06:41 06:41 WBC 10.0 RBC 3.76 L Hgb 11.1 L Hct 34.3 L MCV 91.1 MCH 29.6 MCHC 32.5 L RDW 14.8 H Plt Count 221 MPV 10.1 Neut % (Auto) 77.0 H Lymph % (Auto) 11.1 L Dyer % (Auto) 10.1 H Eos % (Auto) 0.8 Baso % (Auto) 1.0 Neut # (Auto) 7.7 H Lymph # (Auto) 1.1 Dyer # (Auto) 1.0 H Eos # (Auto) 0.1 Baso # (Auto) 0.1 PT 12.1 INR 1.1 APTT 36 H Puncture Site pCO2 pO2 HCO3 ABG pH ABG Total CO2 ABG O2 Saturation ABG Base Excess Maicol Test ABG Potassium A-a O2 Difference Respiratory Index Glucose Lactate Vent Mode FiO2 Inspiratory BiPAP Expiratory BiPAP Sodium 137 Potassium 4.4 Chloride 103 Carbon Dioxide 27 Anion Gap 12 BUN 20 Creatinine 0.8 Est GFR ( Amer) > 60 Est GFR (Non-Af Amer) > 60 Random Glucose 96 D Calcium 8.5 L Magnesium 1.7 Total Bilirubin 0.6 AST 26 ALT 15 L D Alkaline Phosphatase 56 Troponin I 0.1020 NT-Pro-B Natriuret Pep 77731 H Total Protein 6.9 Albumin 3.6 Globulin 3.3 Albumin/Globulin Ratio 1.1 Arterial Blood Potassium Urine Color Urine Clarity Urine pH Ur Specific Dickens Urine Protein Urine Glucose (UA) Urine Ketones Urine Blood Urine Nitrate Urine Bilirubin Urine Urobilinogen Ur Leukocyte Esterase Urine WBC (Auto) Urine RBC (Auto) Hyaline Casts Digoxin Influenza Typ A,B (EIA) 04/24/18 04/24/18 04/24/18 06:41 06:50 07:34 WBC RBC Hgb Hct MCV MCH MCHC RDW Plt Count MPV Neut % (Auto) Lymph % (Auto) Dyer % (Auto) Eos % (Auto) Baso % (Auto) Neut # (Auto) Lymph # (Auto) Dyer # (Auto) Eos # (Auto) Baso # (Auto) PT INR APTT Puncture Site Rb pCO2 51 H pO2 320 H HCO3 25.2 ABG pH 7.33 L ABG Total CO2 28.5 H ABG O2 Saturation 100.2 H ABG Base Excess 0.2 Maicol Test Na ABG Potassium 4.0 A-a O2 Difference 329.0 Respiratory Index 1.0 Glucose 88 Lactate 0.6 L Vent Mode Bipap FiO2 100.0 Inspiratory BiPAP 10 Expiratory BiPAP 5 Sodium 139.0 Potassium Chloride 108.0 H Carbon Dioxide Anion Gap BUN Creatinine Est GFR ( Amer) Est GFR (Non-Af Amer) Random Glucose Calcium Magnesium Total Bilirubin AST ALT Alkaline Phosphatase Troponin I NT-Pro-B Natriuret Pep Total Protein Albumin Globulin Albumin/Globulin Ratio Arterial Blood Potassium 4.0 Urine Color Urine Clarity Urine pH Ur Specific Dickens Urine Protein Urine Glucose (UA) Urine Ketones Urine Blood Urine Nitrate Urine Bilirubin Urine Urobilinogen Ur Leukocyte Esterase Urine WBC (Auto) Urine RBC (Auto) Hyaline Casts Digoxin < 0.4 L Influenza Typ A,B (EIA) Negative for flu a/b 04/24/18 07:55 WBC RBC Hgb Hct MCV MCH MCHC RDW Plt Count MPV Neut % (Auto) Lymph % (Auto) Dyer % (Auto) Eos % (Auto) Baso % (Auto) Neut # (Auto) Lymph # (Auto) Dyer # (Auto) Eos # (Auto) Baso # (Auto) PT INR APTT Puncture Site pCO2 pO2 HCO3 ABG pH ABG Total CO2 ABG O2 Saturation ABG Base Excess Maicol Test ABG Potassium A-a O2 Difference Respiratory Index Glucose Lactate Vent Mode FiO2 Inspiratory BiPAP Expiratory BiPAP Sodium Potassium Chloride Carbon Dioxide Anion Gap BUN Creatinine Est GFR ( Amer) Est GFR (Non-Af Amer) Random Glucose Calcium Magnesium Total Bilirubin AST ALT Alkaline Phosphatase Troponin I NT-Pro-B Natriuret Pep Total Protein Albumin Globulin Albumin/Globulin Ratio Arterial Blood Potassium Urine Color Yellow Urine Clarity Clear Urine pH 5.0 Ur Specific Dickens 1.009 Urine Protein 2+ H Urine Glucose (UA) Normal Urine Ketones Negative Urine Blood Negative Urine Nitrate Negative Urine Bilirubin Negative Urine Urobilinogen Normal Ur Leukocyte Esterase 2+ H Urine WBC (Auto) 17 H Urine RBC (Auto) 3 Hyaline Casts 6-10 H Digoxin Influenza Typ A,B (EIA) Assessment & Plan - Assessment and Plan (Free Text) Assessment: Patient is a 73 yo male w/ PMH Afib, PVD, CHF, CAD, HTN, HLD, COPD, BPH admitted to hospital for shortness of breath. Acute CHF Cardiology Consulted: Dr. Maddox- recs appreciated CXR- small bilateral pleural effusion, bilateral perihilar consolidation, AICD BNP 84425, repeat BNP pending Lasix 20mg IVP bid Lisinopril 10mg po daily Coreg 6.125m po bid Spironolactone 12.5mg po bid Hx of COPD Pulmonology consulted: Dr. Casiano- recommendations appreciated Duoneb PRN Breo Ellipta daily Hx of HTN Hydralazine 10mg po bid Zestril 10mg po daily Aldactone 12.5mg po bid Lasix 20mg IVP bid Hx of AFib Coreg 6.125mg po bid Aspirin/Plavix daily Hx of CAD w/ AICD Crestor 10mg po hs Aspirin/Plavix daily PVD See CAD plan Hx of BPH Flomax 0.4mg po daily Renal diet w/ fluid restriction DVT ppx: Heparin 5000 sc q8h GI ppx: Not indicated at this time Medical Management d/w Dr. Gonzalez PGY-1 Felisa Staley
--- NOTE | 2018-04-24 09:15 | RAD ---
Date of service: 04/24/2018 PROCEDURE: CHEST RADIOGRAPH, 1 VIEW HISTORY: SOB COMPARISON: 04/05/2018 FINDINGS: LUNGS: Bilateral perihilar opacities. Likely consolidation PLEURA: . small bilateral pleural effusion. No pneumothorax. CARDIOVASCULAR: No aortic atherosclerotic calcification present. AICD. OSSEOUS STRUCTURES: No significant abnormalities. VISUALIZED UPPER ABDOMEN: Normal. OTHER FINDINGS: None. IMPRESSION: Small bilateral pleural effusion. Bilateral perihilar consolidation. AICD.
[2018-04-24] MEDS ORDERED: Albuterol-Ipratrop 3 mg / 0.5 (3 ml) UD INH PRN (14:45)
[2018-04-24 22:21] VITALS: RESP 20
[2018-04-25] MEDS: Fluticasone-Vilanterol 100/25mcg Diskus INH SCH (08:00)
--- NOTE | 2018-04-25 10:12 | CP.PCM.PN ---
Subjective - Date & Time of Evaluation Date of Evaluation: 04/25/18 Time of Evaluation: 10:08 - Subjective Subjective: PGY-1 Medicine Progress Note for Dr. Gonzalez's service S/E at bedside. Reports improved breathing status. Cannot lay flat. Took off Bipap on his own against medical advice. Denied labwork today. Patient is very u ncompliant with medical care within hospital. Asks why has been in hospital repeatedly but when told he states "whatever" and looks away. Denies fevers, chills, chest pain, sob, n/v, constipation or diarrhea, and dysuria. Objective - Vital Signs/Intake and Output Vital Signs (last 24 hours): Temp Pulse Resp BP Pulse Ox 97.3 F L 69 20 125/69 91 L 04/25/18 07:10 04/25/18 09:46 04/25/18 09:46 04/25/18 09:46 04/25/18 09:46 - Medications Medications: Current Medications Albuterol/Ipratropium (Duoneb 3 Mg/0.5 Mg (3 Ml) Ud) 3 ml INH RQ4 PRN PRN Reason: Shortness of Breath Aspirin (Aspirin Chewable) 81 mg PO DAILY [facility] Last Admin: 04/25/18 09:46 Dose: 81 mg Carvedilol (Coreg) 6.25 mg PO BID [facility] Last Admin: 04/25/18 09:46 Dose: 6.25 mg Clopidogrel Bisulfate (Plavix) 75 mg PO DAILY [facility] Last Admin: 04/25/18 09:46 Dose: 75 mg Fluticasone/Vilanterol (Breo Ellipta 100-25 Mcg Inh) 1 puff INH RQD [facility] Last Admin: 04/25/18 08:00 Dose: Not Given Furosemide (Lasix) 20 mg IVP BID [facility] Last Admin: 04/25/18 09:46 Dose: 20 mg Heparin Sodium (Porcine) (Heparin) 5,000 units SC Q8 [facility] Last Admin: 04/25/18 05:17 Dose: 5,000 units Hydralazine HCl (Apresoline) 10 mg PO BID [facility] Last Admin: 04/24/18 10:37 Dose: 10 mg Lisinopril (Zestril) 10 mg PO DAILY [facility] Last Admin: 04/25/18 09:46 Dose: 10 mg Rosuvastatin Calcium (Crestor) 10 mg PO HS [facility] Last Admin: 04/24/18 22:48 Dose: 10 mg Spironolactone (Aldactone) 12.5 mg PO BID [facility] Last Admin: 04/25/18 09:46 Dose: 12.5 mg Tamsulosin HCl (Flomax) 0.4 mg PO DAILY [facility] Last Admin: 04/25/18 09:46 Dose: 0.4 mg - Labs Labs: 04/24/18 06:41 04/24/18 06:41 PT 12.1 SECONDS (9.7-12.2) 04/24/18 06:41 INR 1.1 04/24/18 06:41 APTT 36 SECONDS (21-34) H 04/24/18 06:41 - Constitutional Appears: Non-toxic, No Acute Distress - Head Exam Head Exam: NORMAL INSPECTION, NORMOCEPHALIC - Eye Exam Eye Exam: EOMI, Normal appearance. absent: Nystagmus, Scleral icterus - ENT Exam ENT Exam: Mucous Membranes Dry - Respiratory Exam Respiratory Exam: Clear to Ausculation Bilateral, NORMAL BREATHING PATTERN. absent: Rales, Rhonchi, Wheezes - Cardiovascular Exam Cardiovascular Exam: REGULAR RHYTHM, +S1, +S2. absent: Tachycardia - GI/Abdominal Exam GI & Abdominal Exam: Soft, Normal Bowel Sounds. absent: Distended, Firm, Guarding, Rigid, Tenderness - Extremities Exam Extremities Exam: Pedal Edema. absent: Calf Tenderness - Neurological Exam Neurological Exam: Alert, Awake, Oriented x3 - Psychiatric Exam Psychiatric exam: Normal Affect, Normal Mood - Skin Skin Exam: Dry, Intact, Normal Color Assessment and Plan - Assessment and Plan (Free Text) Assessment: Patient is a 73 yo male w/ PMH Afib, PVD, CHF, CAD, HTN, HLD, COPD, BPH admitted to hospital for shortness of breath. Treated with lasix. Patient off bipap on 04/25 and tolerating nasal cannula well. Acute CHF Cardiology Consulted: Dr. Blane melissa appreciated CXR- small bilateral pleural effusion, bilateral perihilar consolidation, AICD BNP 63138, repeat BNP pending Lasix 20mg IVP bid Lisinopril 10mg po daily Coreg 6.125m po bid Spironolactone 12.5mg po bid Daily weights strict Is/Os Hx of COPD Pulmonology consulted: Dr. Oh- recommendations appreciated Duoneb PRN Breo Ellipta once daily Hx of HTN Hydralazine 10mg po bid- held in setting of normotensive bp Zestril 10mg po daily Aldactone 12.5mg po bid Lasix 20mg IVP bid Hx of AFib Coreg 6.125mg po bid Aspirin/Plavix daily Hx of CAD w/ AICD Crestor 10mg po hs Aspirin/Plavix daily PVD See CAD plan Hx of BPH Flomax 0.4mg po daily Renal diet w/ fluid restriction DVT ppx: Heparin 5000 sc q8h GI ppx: Not indicated at this time Disposition: Continue CHF management, continue management of chronic medical conditions Medical Management d/w Dr. Gonzalez PGY-1 Felisa Staley
--- NOTE | 2018-04-25 11:30 | CARD ---
APPROVED REPORT Date of service: 04/24/2018 EKG Measurement Heart [id number] CO 44P [id number] <Conclusion> AV dual-paced rhythm with occasional premature ventricular complexes baseline artifact.please repeat. Abnormal ECG
--- NOTE | 2018-04-25 17:47 | CP.PCM.CON ---
History of Present Illness - History of Present Illness History of Present Illness: 73 year old male with hx of afib, pvd, chf, cad, hld, copd, and bph admitted to the hospital for SOB. Patient had trouble breathing three days ago but had progressively worsened. Limited history available due to patient's noncompliance with questioning. ROS: full ROS unobtainable due to patient's refusal to respond to questions PMHx: As stated in HPI PSHx: herniorrhaphy, pacemaker Meds: See d/c summary from 04/09/18 Social: former smoker & etoh use Exam General: No acute distress Heart: Irregularly irregular Lungs: decreased breath sounds bilaterally Abdomen: soft, nontender, nondistended Assessment & Plan 1) COPD - agree with primary team. Duonebs PRN & Breo Elipta daily Past Patient History - Infectious Disease Hx of Infectious Diseases: None - Past Medical History & Family History Past Medical History?: Yes - Past Social History Smoking Status: Former Smoker - CARDIAC Hx Atrial Fibrillation: Yes Hx Congestive Heart Failure: Yes Hx Hypertension: Yes Hx Pacemaker: Yes Hx Peripheral Edema: Yes - PULMONARY Hx Chronic Obstructive Pulmonary Disease (COPD): Yes Hx Emphysema: Yes - NEUROLOGICAL Hx Neurological Disorder: No - HEENT Hx HEENT Problems: Yes Other/Comment: Eye glasses - RENAL Hx Chronic Kidney Disease: No - ENDOCRINE/METABOLIC Hx Endocrine Disorders: No - HEMATOLOGICAL/ONCOLOGICAL Hx Human Immunodeficiency Virus (HIV): No - INTEGUMENTARY Hx Dermatological Problems: No - MUSCULOSKELETAL/RHEUMATOLOGICAL Hx Musculoskeletal Disorders: No Hx Falls: No - GASTROINTESTINAL Hx Gastrointestinal Disorders: No - GENITOURINARY/GYNECOLOGICAL Hx Genitourinary Disorders: Yes Hx Prostate Problems: Yes - PSYCHIATRIC Hx Substance Use: No - SURGICAL HISTORY Hx Surgeries: Yes Hx Herniorrhaphy: Yes Other/Comment: Hx Pacemaker insertion - ANESTHESIA Hx Anesthesia: Yes Hx Anesthesia Reactions: No Hx Malignant Hyperthermia: No Meds Allergies/Adverse Reactions: Allergies Allergy/AdvReac Type Severity Reaction Status Date / Time Iodinated Contrast- Oral and AdvReac ANAPHYLAXIS Verified 04/24/18 06:09 IV Dye - Medications Medications: Current Medications Albuterol/Ipratropium (Duoneb 3 Mg/0.5 Mg (3 Ml) Ud) 3 ml INH RQ4 PRN PRN Reason: Shortness of Breath Aspirin (Aspirin Chewable) 81 mg PO DAILY [facility] Last Admin: 04/25/18 09:46 Dose: 81 mg Carvedilol (Coreg) 6.25 mg PO BID [facility] Last Admin: 04/25/18 17:25 Dose: 6.25 mg Clopidogrel Bisulfate (Plavix) 75 mg PO DAILY [facility] Last Admin: 04/25/18 09:46 Dose: 75 mg Fluticasone/Vilanterol (Breo Ellipta 100-25 Mcg Inh) 1 puff INH RQD [facility] Last Admin: 04/25/18 08:00 Dose: Not Given Furosemide (Lasix) 20 mg IVP BID [facility] Last Admin: 04/25/18 17:25 Dose: 20 mg Heparin Sodium (Porcine) (Heparin) 5,000 units SC Q8 [facility] Last Admin: 04/25/18 14:21 Dose: 5,000 units Hydralazine HCl (Apresoline) 10 mg PO BID [facility] Last Admin: 04/24/18 10:37 Dose: 10 mg Lisinopril (Zestril) 10 mg PO DAILY [facility] Last Admin: 04/25/18 09:46 Dose: 10 mg Rosuvastatin Calcium (Crestor) 10 mg PO HS [facility] Last Admin: 04/24/18 22:48 Dose: 10 mg Spironolactone (Aldactone) 12.5 mg PO BID [facility] Last Admin: 04/25/18 17:25 Dose: 12.5 mg Tamsulosin HCl (Flomax) 0.4 mg PO DAILY [facility] Last Admin: 04/25/18 09:46 Dose: 0.4 mg Results - Vital Signs Recent Vital Signs: Last Vital Signs Temp 97.6 F 04/25/18 15:00 Pulse 79 04/25/18 15:00 Resp 20 04/25/18 15:00 BP 131/77 04/25/18 17:25 Pulse Ox 96 04/25/18 15:00 - Labs Result Diagrams: 04/24/18 06:41 04/24/18 06:41
--- NOTE | 2018-04-25 21:49 | CP.PCM.CON ---
History of Present Illness - History of Present Illness History of Present Illness: Patient seen and evaluated this evening Admitted for acute on Chronic systolic CHF Non ischemic CMP S/P AICD HPI: Patient is a 73 yo male w/ PMH Afib, PVD, CHF, CAD, HTN, HLD, COPD, BPH admitted to hospital for shortness of breath. Patient states the difficulty breathing started 3 days ago but has increased to the point where needed to come to hospital. Limited ROS as patient is not compliant with questioning. Patient was placed on bipap and given lasix which improved oxygenation. Patient makes minimal attempt to participate in questioning therefore limited information as collected. Of note patient was recently discharged from hospital but did not fill his prescriptions as is very non-compliant with routine meds. PMH-Afib, PVD, CHF, CAD, HTN, HLD, COPD, BPH Pmhx: Afib, PVD, CHF, CAD, HTN, HLD, COPD, BPH Pshx: herniorrhaphy, pacemaker Meds: See discharge summary on 04-09-18 Allergies: contrast SocHx: former smoker/alcohol use, denies drug use Review of Systems - Review of Systems Systems not reviewed;Unavailable: Other (patient not participating in que stioning) Meds Allergies/Adverse Reactions: Allergies Allergy/AdvReac Type Severity Reaction Status Date / Time Iodinated Contrast- Oral and AdvReac ANAPHYLAXIS Verified 04/24/18 06:09 IV Dye Physical Exam - Constitutional Appears: No Acute Distress Additional comments: on bipap, improved - Head Exam Head Exam: NORMAL INSPECTION, NORMOCEPHALIC - Eye Exam Eye Exam: EOMI, Normal appearance. absent: Nystagmus, Scleral icterus - ENT Exam ENT Exam: Mucous Membranes Dry - Respiratory Exam Respiratory Exam: Decreased Breath Sounds, Rales. absent: Clear to Auscultation Bilateral, Rhonchi, Wheezes, NORMAL BREATHING PATTERN - Cardiovascular Exam Cardiovascular Exam: REGULAR RHYTHM, +S1, +S2. absent: Tachycardia - GI/Abdominal Exam GI & Abdominal Exam: Normal Bowel Sounds, Soft. absent: Diminished Bowel Sounds, Distended, Firm, Tenderness - Extremities Exam Extremities exam: Positive for: pedal edema. Negative for: calf tenderness - Neurological Exam Neurological exam: Alert, Oriented x3 - Psychiatric Exam Psychiatric exam: Normal Affect, Normal Mood - Skin Skin Exam: Dry, Intact, Normal Color Patient is a 73 yo male w/ PMH Afib, PVD, CHF, CAD, HTN, HLD, COPD, BPH admitted to hospital for shortness of breath. Treated with lasix. Patient off bipap on 04/25 and tolerating nasal cannula well. Acute CHF CXR- small bilateral pleural effusion, bilateral perihilar consolidation, AICD BNP 21126, repeat BNP pending Lasix 20mg IVP bid Lisinopril 10mg po daily Coreg 6.125m po bid Spironolactone 12.5mg po bid Daily weights strict Is/Os Hx of COPD Pulmonology consulted: Dr. Casiano- recommendations appreciated Duoneb PRN Breo Ellipta once daily Hx of HTN Hydralazine 10mg po bid- held in setting of normotensive bp Zestril 10mg po daily Aldactone 12.5mg po bid Lasix 20mg IVP bid Hx of AFib Coreg 6.125mg po bid Aspirin/Plavix daily Hx of CAD w/ AICD Crestor 10mg po hs Aspirin/Plavix daily PVD See CAD plan Hx of BPH Flomax 0.4mg po daily Renal diet w/ fluid restriction DVT ppx: Heparin 5000 sc q8h GI ppx: Not indicated at this time Disposition: Continue CHF management, continue management of chronic medical conditions Past Patient History - Infectious Disease Hx of Infectious Diseases: None - Past Medical History & Family History Past Medical History?: Yes - Past Social History Smoking Status: Former Smoker - CARDIAC Hx Atrial Fibrillation: Yes Hx Congestive Heart Failure: Yes Hx Hypertension: Yes Hx Pacemaker: Yes Hx Peripheral Edema: Yes - PULMONARY Hx Chronic Obstructive Pulmonary Disease (COPD): Yes Hx Emphysema: Yes - NEUROLOGICAL Hx Neurological Disorder: No - HEENT Hx HEENT Problems: Yes Other/Comment: Eye glasses - RENAL Hx Chronic Kidney Disease: No - ENDOCRINE/METABOLIC Hx Endocrine Disorders: No - HEMATOLOGICAL/ONCOLOGICAL Hx Human Immunodeficiency Virus (HIV): No - INTEGUMENTARY Hx Dermatological Problems: No - MUSCULOSKELETAL/RHEUMATOLOGICAL Hx Musculoskeletal Disorders: No Hx Falls: No - GASTROINTESTINAL Hx Gastrointestinal Disorders: No - GENITOURINARY/GYNECOLOGICAL Hx Genitourinary Disorders: Yes Hx Prostate Problems: Yes - PSYCHIATRIC Hx Substance Use: No - SURGICAL HISTORY Hx Surgeries: Yes Hx Herniorrhaphy: Yes Other/Comment: Hx Pacemaker insertion - ANESTHESIA Hx Anesthesia: Yes Hx Anesthesia Reactions: No Hx Malignant Hyperthermia: No Meds Allergies/Adverse Reactions: Allergies Allergy/AdvReac Type Severity Reaction Status Date / Time Iodinated Contrast- Oral and AdvReac ANAPHYLAXIS Verified 04/24/18 06:09 IV Dye - Medications Medications: Current Medications Albuterol/Ipratropium (Duoneb 3 Mg/0.5 Mg (3 Ml) Ud) 3 ml INH RQ4 PRN PRN Reason: Shortness of Breath Aspirin (Aspirin Chewable) 81 mg PO DAILY [facility] Last Admin: 04/25/18 09:46 Dose: 81 mg Carvedilol (Coreg) 6.25 mg PO BID [facility] Last Admin: 04/25/18 17:25 Dose: 6.25 mg Clopidogrel Bisulfate (Plavix) 75 mg PO DAILY [facility] Last Admin: 04/25/18 09:46 Dose: 75 mg Fluticasone/Vilanterol (Breo Ellipta 100-25 Mcg Inh) 1 puff INH RQD [facility] Last Admin: 04/25/18 08:00 Dose: Not Given Furosemide (Lasix) 20 mg IVP BID [facility] Last Admin: 04/25/18 17:25 Dose: 20 mg Heparin Sodium (Porcine) (Heparin) 5,000 units SC Q8 [facility] Last Admin: 04/25/18 21:12 Dose: 5,000 units Hydralazine HCl (Apresoline) 10 mg PO BID [facility] Last Admin: 04/24/18 10:37 Dose: 10 mg Lisinopril (Zestril) 10 mg PO DAILY [facility] Last Admin: 04/25/18 09:46 Dose: 10 mg Rosuvastatin Calcium (Crestor) 10 mg PO HS [facility] Last Admin: 04/25/18 21:00 Dose: 10 mg Spironolactone (Aldactone) 12.5 mg PO BID [facility] Last Admin: 04/25/18 17:25 Dose: 12.5 mg Tamsulosin HCl (Flomax) 0.4 mg PO DAILY [facility] Last Admin: 04/25/18 09:46 Dose: 0.4 mg Results - Vital Signs Recent Vital Signs: Last Vital Signs Temp 97.6 F 04/25/18 15:00 Pulse 79 04/25/18 15:00 Resp 20 04/25/18 15:00 BP 131/77 04/25/18 17:25 Pulse Ox 96 04/25/18 15:00 - Labs Result Diagrams: 04/27/18 12:50 04/27/18 12:50
--- NOTE | 2018-04-26 06:50 | CP.PCM.PN ---
Subjective - Date & Time of Evaluation Date of Evaluation: 04/26/18 Time of Evaluation: 06:49 - Subjective Subjective: PGY-1 Medicine Progress Note for Dr. Gonzalez's service S/E at bedside. Admits to using bipap overnight. Reports improved breathing on nasal cannula. Denies fevers, chills, chest pain, n/v, constipation or diarrhea, and dysuria. Objective - Vital Signs/Intake and Output Vital Signs (last 24 hours): Temp Pulse Resp BP Pulse Ox 97.5 F L 80 20 98/57 L 96 04/25/18 23:30 04/25/18 23:50 04/25/18 23:30 04/25/18 23:30 04/25/18 23:30 Intake and Output: 04/25/18 04/26/18 18:59 06:59 Intake Total 420 Balance 420 - Medications Medications: Current Medications Albuterol/Ipratropium (Duoneb 3 Mg/0.5 Mg (3 Ml) Ud) 3 ml INH RQ4 PRN PRN Reason: Shortness of Breath Aspirin (Aspirin Chewable) 81 mg PO DAILY [facility] Last Admin: 04/25/18 09:46 Dose: 81 mg Carvedilol (Coreg) 6.25 mg PO BID [facility] Last Admin: 04/25/18 17:25 Dose: 6.25 mg Clopidogrel Bisulfate (Plavix) 75 mg PO DAILY [facility] Last Admin: 04/25/18 09:46 Dose: 75 mg Fluticasone/Vilanterol (Breo Ellipta 100-25 Mcg Inh) 1 puff INH RQD [facility] Last Admin: 04/25/18 08:00 Dose: Not Given Furosemide (Lasix) 20 mg IVP BID [facility] Last Admin: 04/25/18 17:25 Dose: 20 mg Heparin Sodium (Porcine) (Heparin) 5,000 units SC Q8 [facility] Last Admin: 04/26/18 05:50 Dose: 5,000 units Hydralazine HCl (Apresoline) 10 mg PO BID [facility] Last Admin: 04/24/18 10:37 Dose: 10 mg Lisinopril (Zestril) 10 mg PO DAILY [facility] Last Admin: 04/25/18 09:46 Dose: 10 mg Rosuvastatin Calcium (Crestor) 10 mg PO HS [facility] Last Admin: 04/25/18 21:00 Dose: 10 mg Spironolactone (Aldactone) 12.5 mg PO BID [facility] Last Admin: 04/25/18 17:25 Dose: 12.5 mg Tamsulosin HCl (Flomax) 0.4 mg PO DAILY [facility] Last Admin: 04/25/18 09:46 Dose: 0.4 mg - Labs Labs: 04/24/18 06:41 04/24/18 06:41 PT 12.1 SECONDS (9.7-12.2) 04/24/18 06:41 INR 1.1 04/24/18 06:41 APTT 36 SECONDS (21-34) H 04/24/18 06:41 - Constitutional Appears: Non-toxic, No Acute Distress - Head Exam Head Exam: NORMAL INSPECTION, NORMOCEPHALIC - Eye Exam Eye Exam: EOMI, Normal appearance. absent: Nystagmus, Scleral icterus - ENT Exam ENT Exam: Mucous Membranes Dry - Respiratory Exam Respiratory Exam: Clear to Ausculation Bilateral, NORMAL BREATHING PATTERN. absent: Rales, Rhonchi, Wheezes - Cardiovascular Exam Cardiovascular Exam: REGULAR RHYTHM, +S1, +S2. absent: Tachycardia - GI/Abdominal Exam GI & Abdominal Exam: Soft, Normal Bowel Sounds. absent: Distended, Firm, Guarding, Rigid, Tenderness - Extremities Exam Extremities Exam: Normal Inspection. absent: Calf Tenderness, Pedal Edema - Neurological Exam Neurological Exam: Alert, Awake, Oriented x3 - Psychiatric Exam Psychiatric exam: Normal Affect, Normal Mood - Skin Skin Exam: Dry, Intact, Normal Color Assessment and Plan - Assessment and Plan (Free Text) Assessment: Patient is a 73 yo male w/ PMH Afib, PVD, CHF, CAD, HTN, HLD, COPD, BPH admitted to hospital for shortness of breath. Treated with lasix. Patient off bipap on 04/25 and tolerating nasal cannula well. Acute CHF Cardiology Consulted: Dr. Blane melissa appreciated CXR- small bilateral pleural effusion, bilateral perihilar consolidation, AICD BNP 71039, repeat BNP pending Lasix 20mg IVP bid Lisinopril 10mg po daily Coreg 6.125m po bid Spironolactone 12.5mg po bid Daily weights strict Is/Os Hx of COPD Pulmonology consulted: Dr. Casiano- recommendations appreciated Duoneb PRN Breo Ellipta once daily Hx of HTN Hydralazine 10mg po bid- held in setting of normotensive bp Zestril 10mg po daily Aldactone 12.5mg po bid Lasix 20mg IVP bid Hx of AFib Coreg 6.125mg po bid Aspirin/Plavix daily Hx of CAD w/ AICD Crestor 10mg po hs Aspirin/Plavix daily PVD See CAD plan Hx of BPH Flomax 0.4mg po daily Renal diet w/ fluid restriction DVT ppx: Heparin 5000 sc q8h GI ppx: Not indicated at this time Disposition: Continue CHF management, continue management of chronic medical conditions Medical Management d/w Dr. Gonzalez PGY-1 Felisa Staley
[2018-04-26] MEDS: Fluticasone-Vilanterol 100/25mcg Diskus INH SCH (10:41)
--- NOTE | 2018-04-26 23:56 | CP.PCM.PN ---
Subjective - Date & Time of Evaluation Date of Evaluation: 04/26/18 Time of Evaluation: 23:55 - Subjective Subjective: Patient seen and evaluated this am No new cardiac events noted CHF management Physical Exam - Constitutional Appears: No Acute Distress Additional comments: on bipap, improved - Head Exam Head Exam: NORMAL INSPECTION, NORMOCEPHALIC - Eye Exam Eye Exam: EOMI, Normal appearance. absent: Nystagmus, Scleral icterus - ENT Exam ENT Exam: Mucous Membranes Dry - Respiratory Exam Respiratory Exam: Decreased Breath Sounds, Rales. absent: Clear to Auscultation Bilateral, Rhonchi, Wheezes, NORMAL BREATHING PATTERN - Cardiovascular Exam Cardiovascular Exam: REGULAR RHYTHM, +S1, +S2. absent: Tachycardia - GI/Abdominal Exam GI & Abdominal Exam: Normal Bowel Sounds, Soft. absent: Diminished Bowel Sounds, Distended, Firm, Tenderness - Extremities Exam Extremities exam: Positive for: pedal edema. Negative for: calf tenderness - Neurological Exam Neurological exam: Alert, Oriented x3 - Psychiatric Exam Psychiatric exam: Normal Affect, Normal Mood - Skin Skin Exam: Dry, Intact, Normal Color Patient is a 73 yo male w/ PMH Afib, PVD, CHF, CAD, HTN, HLD, COPD, BPH admitted to hospital for shortness of breath. Treated with lasix. Patient off bipap on and tolerating nasal cannula well. Acute CHF CXR- small bilateral pleural effusion, bilateral perihilar consolidation, AICD BNP 88653, repeat BNP pending Lasix 20mg IVP bid Lisinopril 10mg po daily Coreg 6.125m po bid Spironolactone 12.5mg po bid Daily weights strict Is/Os Hx of COPD Pulmonology consulted: Dr. Casiano- recommendations appreciated Duoneb PRN Breo Ellipta once daily Hx of HTN Hydralazine 10mg po bid- held in setting of normotensive bp Zestril 10mg po daily Aldactone 12.5mg po bid Lasix 20mg IVP bid Hx of AFib Coreg 6.125mg po bid Aspirin/Plavix daily Hx of CAD w/ AICD Crestor 10mg po hs Aspirin/Plavix daily PVD See CAD plan Hx of BPH Flomax 0.4mg po daily Renal diet w/ fluid restriction DVT ppx: Heparin 5000 sc q8h GI ppx: Not indicated at this time Objective - Vital Signs/Intake and Output Vital Signs (last 24 hours): Temp Pulse Resp BP Pulse Ox 98 F 82 20 114/73 96 04/26/18 22:05 04/26/18 23:41 04/26/18 22:05 04/26/18 22:05 04/26/18 22:05 - Medications Medications: Current Medications Albuterol/Ipratropium (Duoneb 3 Mg/0.5 Mg (3 Ml) Ud) 3 ml INH RQ4 PRN PRN Reason: Shortness of Breath Aspirin (Aspirin Chewable) 81 mg PO DAILY [facility] Last Admin: 04/26/18 11:36 Dose: 81 mg Carvedilol (Coreg) 6.25 mg PO BID [facility] Last Admin: 04/26/18 18:37 Dose: 6.25 mg Clopidogrel Bisulfate (Plavix) 75 mg PO DAILY [facility] Last Admin: 04/26/18 11:36 Dose: 75 mg Fluticasone/Vilanterol (Breo Ellipta 100-25 Mcg Inh) 1 puff INH RQD [facility] Last Admin: 04/26/18 10:41 Dose: Not Given Furosemide (Lasix) 20 mg IVP Q12H [facility] Last Admin: 04/26/18 11:39 Dose: Not Given Heparin Sodium (Porcine) (Heparin) 5,000 units SC Q8 [facility] Last Admin: 04/26/18 22:41 Dose: 5,000 units Hydralazine HCl (Apresoline) 10 mg PO BID [facility] Last Admin: 04/24/18 10:37 Dose: 10 mg Lisinopril (Zestril) 10 mg PO DAILY [facility] Last Admin: 04/26/18 11:39 Dose: Not Given Rosuvastatin Calcium (Crestor) 10 mg PO HS [facility] Last Admin: 04/26/18 22:40 Dose: 10 mg Spironolactone (Aldactone) 12.5 mg PO BID [facility] Last Admin: 04/26/18 19:00 Dose: 12.5 mg Tamsulosin HCl (Flomax) 0.4 mg PO DAILY [facility] Last Admin: 04/26/18 11:36 Dose: 0.4 mg - Labs Labs: 04/24/18 06:41 04/24/18 06:41 PT 12.1 SECONDS (9.7-12.2) 04/24/18 06:41 INR 1.1 04/24/18 06:41 APTT 36 SECONDS (21-34) H 04/24/18 06:41
--- NOTE | 2018-04-27 07:49 | CP.PCM.PN ---
Subjective - Date & Time of Evaluation Date of Evaluation: 04/27/18 Time of Evaluation: 08:35 - Subjective Subjective: Patient examined at bedside. No acute overnight events. Patient reports he feels well. He reports using BiPAP overnight, and NC during the day without complications. Pt reports he is eating well and urinating without problem. Denies chest pain abdominal pain, nausea, diarrhea Objective - Vital Signs/Intake and Output Vital Signs (last 24 hours): Temp Pulse Resp BP Pulse Ox 97.5 F L 84 20 127/86 92 L 04/27/18 05:15 04/27/18 05:15 04/27/18 05:15 04/27/18 05:15 04/27/18 05:15 - Medications Medications: Current Medications Albuterol/Ipratropium (Duoneb 3 Mg/0.5 Mg (3 Ml) Ud) 3 ml INH RQ4 PRN PRN Reason: Shortness of Breath Aspirin (Aspirin Chewable) 81 mg PO DAILY [facility] Last Admin: 04/26/18 11:36 Dose: 81 mg Carvedilol (Coreg) 6.25 mg PO BID [facility] Last Admin: 04/26/18 18:37 Dose: 6.25 mg Clopidogrel Bisulfate (Plavix) 75 mg PO DAILY [facility] Last Admin: 04/26/18 11:36 Dose: 75 mg Fluticasone/Vilanterol (Breo Ellipta 100-25 Mcg Inh) 1 puff INH RQD [facility] Last Admin: 04/26/18 10:41 Dose: Not Given Furosemide (Lasix) 20 mg IVP Q12H [facility] Last Admin: 04/27/18 01:50 Dose: 20 mg Heparin Sodium (Porcine) (Heparin) 5,000 units SC Q8 [facility] Last Admin: 04/27/18 05:19 Dose: 5,000 units Hydralazine HCl (Apresoline) 10 mg PO BID [facility] Last Admin: 04/24/18 10:37 Dose: 10 mg Lisinopril (Zestril) 10 mg PO DAILY [facility] Last Admin: 04/26/18 11:39 Dose: Not Given Rosuvastatin Calcium (Crestor) 10 mg PO HS [facility] Last Admin: 04/26/18 22:40 Dose: 10 mg Spironolactone (Aldactone) 12.5 mg PO BID [facility] Last Admin: 04/26/18 19:00 Dose: 12.5 mg Tamsulosin HCl (Flomax) 0.4 mg PO DAILY [facility] Last Admin: 04/26/18 11:36 Dose: 0.4 mg - Labs Labs: 04/24/18 06:41 04/24/18 06:41 PT 12.1 SECONDS (9.7-12.2) 04/24/18 06:41 INR 1.1 04/24/18 06:41 APTT 36 SECONDS (21-34) H 04/24/18 06:41 - Constitutional Appears: Non-toxic, No Acute Distress - Head Exam Head Exam: ATRAUMATIC, NORMAL INSPECTION, NORMOCEPHALIC - Eye Exam Eye Exam: EOMI, Normal appearance - ENT Exam ENT Exam: Mucous Membranes Moist, Normal Exam - Neck Exam Neck Exam: Normal Inspection - Respiratory Exam Respiratory Exam: Rales (LLL>RLL), NORMAL BREATHING PATTERN. absent: Respiratory Distress - Cardiovascular Exam Cardiovascular Exam: REGULAR RHYTHM, Murmur (holosystolic) - GI/Abdominal Exam GI & Abdominal Exam: Soft, Normal Bowel Sounds. absent: Distended, Tenderness - Extremities Exam Extremities Exam: Normal Inspection. absent: Calf Tenderness, Pedal Edema - Neurological Exam Neurological Exam: Alert, Awake - Psychiatric Exam Psychiatric exam: Normal Affect, Normal Mood - Skin Skin Exam: Dry, Intact, Normal Color, Warm Assessment and Plan - Assessment and Plan (Free Text) Assessment: 73 year old male w/ PMHx Afib, PVD, CHF, CAD, HTN, HLD, COPD, BPH admitted for treatment of acute CHF exacerbation Plan: Acute CHF Cardiology Consulted: Dr. Maddox CXR- small bilateral pleural effusion, bilateral perihilar consolidation, AICD BNP 90232, awaiting repeat as pt refused Lasix 20mg IVP bid Lisinopril 10mg po daily Coreg 6.125m po bid Spironolactone 12.5mg po bid Daily weights strict Is/Os Hx of COPD Pulmonology consulted: Dr. Oh Deluca q4 PRN Breo Ellipta once daily Hx of HTN Hydralazine 10mg po bid- held in setting of normotensive bp Lisinopril 10mg po daily Aldactone 12.5mg po bid Lasix 20mg IVP bid [facility] Hx of AFib Coreg 6.125mg po bid Aspirin/Plavix daily Hx of CAD w/ AICD Crestor 10mg po hs Aspirin/Plavix daily PVD See CAD plan Hx of BPH Flomax 0.4mg po daily DVT ppx: Heparin 5000 sc q8h GI ppx: Not indicated Will discuss with Dr. Carlos Shore, PGY-1
[2018-04-27 12:56] LABS: BASO # 0.1 K/uL (0.0-0.2); EOS # 0.2 K/uL (0.0-0.7); EOS % 3.2 % (0.0-4.0); HEMOGLOBIN 11.7 g/dL (12.0-18.0); LYMPH # 0.9 K/uL (1.0-4.3); LYMPH % 16.2 % (20.0-40.0); MEAN CELL VOLUME 89.9 fL (80.0-94.0); MEAN CORPUSCULAR HGB CONC 32.2 g/dL (33.0-37.0); MEAN PLATELET VOLUME 9.5 fL (7.2-11.7); MONO # 0.5 K/uL (0.0-0.8); MONO % 10.1 % (0.0-10.0); NEUT # 3.7 K/uL (1.8-7.0); NEUT % 68.5 % (50.0-75.0); RBC 4.04 Mil/uL (4.40-5.90); RED CELL DISTRIBUTION WIDTH 14.6 % (11.5-14.5); WHITE BLOOD COUNT 5.3 K/uL (4.8-10.8)
[2018-04-27 13:24] LABS: ALB/GLOB RATIO 1.2 (1.0-2.1); ALBUMIN 3.8 g/dL (3.5-5.0); ALT/SGPT 22 U/L (21-72); AST/SGOT 22 U/L (17-59); BLOOD UREA NITROGEN 34 mg/dL (9-20); GFR NON-AFRICAN AMERICAN > 60
[2018-04-27 13:31] LABS: B-TYPE NATRIURETIC PEPTIDE 4450 pg/mL (0-900)
[2018-04-27] MEDS: Fluticasone-Vilanterol 100/25mcg Diskus INH SCH (16:06)
--- NOTE | 2018-04-27 19:33 | CP.PCM.PN ---
Subjective - Date & Time of Evaluation Date of Evaluation: 04/27/18 Time of Evaluation: 19:32 - Subjective Subjective: Patient seen and evaluated Sitting in chair and comfortable States able to walk a few feet without dyspnea Physical Exam - Constitutional Appears: No Acute Distress Additional comments: on bipap, improved - Head Exam Head Exam: NORMAL INSPECTION, NORMOCEPHALIC - Eye Exam Eye Exam: EOMI, Normal appearance. absent: Nystagmus, Scleral icterus - ENT Exam ENT Exam: Mucous Membranes Dry - Respiratory Exam Respiratory Exam: Decreased Breath Sounds, Rales. absent: Clear to Auscultation Bilateral, Rhonchi, Wheezes, NORMAL BREATHING PATTERN - Cardiovascular Exam Cardiovascular Exam: REGULAR RHYTHM, +S1, +S2. absent: Tachycardia - GI/Abdominal Exam GI & Abdominal Exam: Normal Bowel Sounds, Soft. absent: Diminished Bowel Sounds, Distended, Firm, Tenderness - Extremities Exam Extremities exam: Positive for: pedal edema. Negative for: calf tenderness - Neurological Exam Neurological exam: Alert, Oriented x3 - Psychiatric Exam Psychiatric exam: Normal Affect, Normal Mood - Skin Skin Exam: Dry, Intact, Normal Color Patient is a 73 yo male w/ PMH Afib, PVD, CHF, CAD, HTN, HLD, COPD, BPH admitted to hospital for shortness of breath. Treated with lasix. Patient off bipap on 04/25 and tolerating nasal cannula well. Acute CHF CXR- small bilateral pleural effusion, bilateral perihilar consolidation, AICD BNP 05205, repeat BNP pending Lasix 20mg IVP bid Lisinopril 10mg po daily Coreg 6.125m po bid Spironolactone 12.5mg po bid Daily weights strict Is/Os Hx of COPD Pulmonology consulted: Dr. Casiano- recommendations appreciated Duoneb PRN Breo Ellipta once daily Hx of HTN Hydralazine 10mg po bid- held in setting of normotensive bp Zestril 10mg po daily Aldactone 12.5mg po bid Lasix 20mg IVP bid Hx of AFib Coreg 6.125mg po bid Aspirin/Plavix daily Hx of CAD w/ AICD Crestor 10mg po hs Aspirin/Plavix daily PVD See CAD plan Hx of BPH Flomax 0.4mg po daily Renal diet w/ fluid restriction DVT ppx: Heparin 5000 sc q8h GI ppx: Not indicated at this time Objective - Vital Signs/Intake and Output Vital Signs (last 24 hours): Temp Pulse Resp BP Pulse Ox 97.2 F L 82 20 105/64 99 04/27/18 08:45 04/27/18 18:12 04/27/18 18:12 04/27/18 18:12 04/27/18 08:45 - Medications Medications: Current Medications Albuterol/Ipratropium (Duoneb 3 Mg/0.5 Mg (3 Ml) Ud) 3 ml INH RQ4 PRN PRN Reason: Shortness of Breath Last Admin: 04/27/18 11:41 Dose: 3 ml Aspirin (Aspirin Chewable) 81 mg PO DAILY [facility] Last Admin: 04/27/18 10:34 Dose: 81 mg Carvedilol (Coreg) 6.25 mg PO BID [facility] Last Admin: 04/27/18 18:11 Dose: Not Given Clopidogrel Bisulfate (Plavix) 75 mg PO DAILY [facility] Last Admin: 04/27/18 10:33 Dose: 75 mg Fluticasone/Vilanterol (Breo Ellipta 100-25 Mcg Inh) 1 puff INH RQD [facility] Last Admin: 04/27/18 16:06 Dose: Not Given Furosemide (Lasix) 20 mg IVP Q12H [facility] Last Admin: 04/27/18 10:37 Dose: 20 mg Heparin Sodium (Porcine) (Heparin) 5,000 units SC Q8 [facility] Last Admin: 04/27/18 13:29 Dose: 5,000 units Hydralazine HCl (Apresoline) 10 mg PO BID [facility] Last Admin: 04/24/18 10:37 Dose: 10 mg Lisinopril (Zestril) 10 mg PO DAILY [facility] Last Admin: 04/27/18 10:34 Dose: 10 mg Rosuvastatin Calcium (Crestor) 10 mg PO HS [facility] Last Admin: 04/26/18 22:40 Dose: 10 mg Spironolactone (Aldactone) 12.5 mg PO BID [facility] Last Admin: 04/27/18 18:11 Dose: Not Given Tamsulosin HCl (Flomax) 0.4 mg PO DAILY [facility] Last Admin: 04/27/18 10:34 Dose: 0.4 mg - Labs Labs: 04/27/18 12:50 04/27/18 12:50 PT 12.1 SECONDS (9.7-12.2) 04/24/18 06:41 INR 1.1 04/24/18 06:41 APTT 36 SECONDS (21-34) H 04/24/18 06:41
--- NOTE | 2018-04-28 01:54 | CP.PCM.PN ---
Subjective - Date & Time of Evaluation Date of Evaluation: 04/28/18 Time of Evaluation: 08:03 - Subjective Subjective: Patient examined at bedside. No acute overnight events. Pt reports he has been using BiPAP at night as needed and uses NC during day without issue. Denies other complaint including chest pain, nausea, diarrhea Objective - Vital Signs/Intake and Output Vital Signs (last 24 hours): Temp Pulse Resp BP Pulse Ox 97.2 F L 82 20 118/72 98 04/27/18 16:00 04/27/18 18:12 04/27/18 18:12 04/28/18 00:34 04/27/18 16:00 Intake and Output: 04/27/18 04/28/18 18:59 06:59 Intake Total 300 Balance 300 - Medications Medications: Current Medications Albuterol/Ipratropium (Duoneb 3 Mg/0.5 Mg (3 Ml) Ud) 3 ml INH RQ4 PRN PRN Reason: Shortness of Breath Last Admin: 04/27/18 11:41 Dose: 3 ml Aspirin (Aspirin Chewable) 81 mg PO DAILY [facility] Last Admin: 04/27/18 10:34 Dose: 81 mg Carvedilol (Coreg) 6.25 mg PO BID [facility] Last Admin: 04/27/18 18:11 Dose: Not Given Clopidogrel Bisulfate (Plavix) 75 mg PO DAILY [facility] Last Admin: 04/27/18 10:33 Dose: 75 mg Fluticasone/Vilanterol (Breo Ellipta 100-25 Mcg Inh) 1 puff INH RQD [facility] Last Admin: 04/27/18 16:06 Dose: Not Given Furosemide (Lasix) 20 mg IVP Q12H [facility] Last Admin: 04/28/18 00:34 Dose: 20 mg Heparin Sodium (Porcine) (Heparin) 5,000 units SC Q8 [facility] Last Admin: 04/27/18 21:42 Dose: 5,000 units Hydralazine HCl (Apresoline) 10 mg PO BID [facility] Last Admin: 04/24/18 10:37 Dose: 10 mg Lisinopril (Zestril) 10 mg PO DAILY [facility] Last Admin: 04/27/18 10:34 Dose: 10 mg Rosuvastatin Calcium (Crestor) 10 mg PO HS [facility] Last Admin: 04/27/18 21:42 Dose: 10 mg Spironolactone (Aldactone) 12.5 mg PO BID [facility] Last Admin: 04/27/18 18:11 Dose: Not Given Tamsulosin HCl (Flomax) 0.4 mg PO DAILY [facility] Last Admin: 04/27/18 10:34 Dose: 0.4 mg - Labs Labs: 04/27/18 12:50 04/27/18 12:50 PT 12.1 SECONDS (9.7-12.2) 04/24/18 06:41 INR 1.1 04/24/18 06:41 APTT 36 SECONDS (21-34) H 04/24/18 06:41 - Additional Findings Additional findings: - Constitutional Appears: Non-toxic, No Acute Distress - Head Exam Head Exam: ATRAUMATIC, NORMAL INSPECTION, NORMOCEPHALIC - Eye Exam Eye Exam: EOMI, Normal appearance - ENT Exam ENT Exam: Mucous Membranes Moist, Normal Exam - Neck Exam Neck Exam: Normal Inspection - Respiratory Exam Respiratory Exam: Rales (LLL>RLL), NORMAL BREATHING PATTERN. absent: Respirat ory Distress - Cardiovascular Exam Cardiovascular Exam: REGULAR RHYTHM, Murmur (holosystolic) - GI/Abdominal Exam GI & Abdominal Exam: Soft, Normal Bowel Sounds. absent: Distended, Tenderness - Extremities Exam Extremities Exam: Normal Inspection. absent: Calf Tenderness, Pedal Edema - Neurological Exam Neurological Exam: Alert, Awake - Psychiatric Exam Psychiatric exam: Normal Affect, Normal Mood - Skin Skin Exam: Dry, Intact, Normal Color, Warm Assessment and Plan - Assessment and Plan (Free Text) Assessment: 73 year old male w/ PMHx Afib, PVD, CHF, CAD, HTN, HLD, COPD, BPH admitted for treatment of acute CHF exacerbation Plan: Acute CHF Cardiology Consulted: Dr. Maddox CXR- small bilateral pleural effusion, bilateral perihilar consolidation, AICD BNP 4,450, down from 19,000 on admission Lasix 20mg IVP bid Lisinopril 10mg po daily Coreg 6.125m po bid Spironolactone 12.5mg po bid Daily weights strict Is/Os Hx of COPD Pulmonology consulted: Dr. Oh Deluca q4 PRN Breo Ellipta once daily Hx of HTN Hydralazine 10mg po bid- held in setting of normotensive bp Lisinopril 10mg po daily Aldactone 12.5mg po bid Lasix 20mg IVP bid [facility] Hx of AFib Coreg 6.125mg po bid Aspirin/Plavix daily Hx of CAD w/ AICD Crestor 10mg po hs Aspirin/Plavix daily PVD See CAD plan Hx of BPH Flomax 0.4mg po daily DVT ppx: Heparin 5000 sc q8h GI ppx: Not indicated PT Encourage ambulation Incentive spirometry Will discuss with Dr. Carlos Shore, PGY-1
[2018-04-28] MEDS: Fluticasone-Vilanterol 100/25mcg Diskus INH SCH (08:43)
--- NOTE | 2018-04-28 11:43 | CP.PCM.PN ---
Subjective - Date & Time of Evaluation Date of Evaluation: 04/28/18 Time of Evaluation: 11:42 - Subjective Subjective: Pulmonary Follow up, Covering Dr Casiano The Patient was seen and examined at the bedside, Medical records reviewed, and management issues were discussed and formulated with the house staff. Events reviewed Mr Caballero is a 73 year old male with PMHx of COPD, A-Fib, CHF, PVD, HTN, HLD, CAD and BPH Who was admitted to the hospital for SOB. Patient had trouble breathing three days ago but had progressively worsened. Patient seen sitting in a chair comfortable and in no apparent distress Awake and oriented Denies chest pain fever chills nausea vomiting and less shortness of breath since admission Saturation 94-97% on nasal cannula Objective - Vital Signs/Intake and Output Vital Signs (last 24 hours): Temp Pulse Resp BP Pulse Ox 97.1 F L 92 H 20 137/75 94 L 04/28/18 09:03 04/28/18 09:03 04/28/18 09:03 04/28/18 10:45 04/28/18 09:03 Intake and Output: 04/28/18 04/28/18 06:59 18:59 Intake Total 300 Balance 300 - Medications Medications: Current Medications Albuterol/Ipratropium (Duoneb 3 Mg/0.5 Mg (3 Ml) Ud) 3 ml INH RQ4 PRN PRN Reason: Shortness of Breath Last Admin: 04/27/18 11:41 Dose: 3 ml Aspirin (Aspirin Chewable) 81 mg PO DAILY [facility] Last Admin: 04/28/18 10:44 Dose: 81 mg Carvedilol (Coreg) 6.25 mg PO BID [facility] Last Admin: 04/28/18 10:44 Dose: 6.25 mg Clopidogrel Bisulfate (Plavix) 75 mg PO DAILY [facility] Last Admin: 04/28/18 10:44 Dose: 75 mg Fluticasone/Vilanterol (Breo Ellipta 100-25 Mcg Inh) 1 puff INH RQD [facility] Last Admin: 04/28/18 08:43 Dose: 1 puff Furosemide (Lasix) 20 mg IVP Q12H [facility] Last Admin: 04/28/18 10:45 Dose: 20 mg Heparin Sodium (Porcine) (Heparin) 5,000 units SC Q8 [facility] Last Admin: 04/28/18 05:15 Dose: 5,000 units Hydralazine HCl (Apresoline) 10 mg PO BID [facility] Last Admin: 04/24/18 10:37 Dose: 10 mg Lisinopril (Zestril) 10 mg PO DAILY [facility] Last Admin: 04/28/18 10:44 Dose: 10 mg Rosuvastatin Calcium (Crestor) 10 mg PO HS [facility] Last Admin: 04/27/18 21:42 Dose: 10 mg Spironolactone (Aldactone) 12.5 mg PO BID [facility] Last Admin: 04/28/18 10:46 Dose: 12.5 mg Tamsulosin HCl (Flomax) 0.4 mg PO DAILY [facility] Last Admin: 04/28/18 10:44 Dose: 0.4 mg - Labs Labs: 04/27/18 12:50 04/27/18 12:50 PT 12.1 SECONDS (9.7-12.2) 04/24/18 06:41 INR 1.1 04/24/18 06:41 APTT 36 SECONDS (21-34) H 04/24/18 06:41 - Constitutional Appears: Well, Non-toxic - Head Exam Head Exam: ATRAUMATIC, NORMAL INSPECTION - Eye Exam Eye Exam: EOMI, Normal appearance - ENT Exam ENT Exam: Mucous Membranes Moist - Neck Exam Neck Exam: Full ROM, Normal Inspection. absent: Lymphadenopathy - Respiratory Exam Respiratory Exam: Decreased Breath Sounds, Prolonged Expiratory Phase. absent: Accessory Muscle Use, Chest Wall Tenderness, Rales, Rhonchi, Wheezes, Respiratory Distress - Cardiovascular Exam Cardiovascular Exam: REGULAR RHYTHM, +S1, +S2. absent: Murmur - GI/Abdominal Exam GI & Abdominal Exam: Soft, Normal Bowel Sounds. absent: Tenderness - Neurological Exam Neurological Exam: Alert, Awake, Oriented x3 Assessment and Plan (1) Shortness of breath Status: Acute (2) CHF exacerbation Status: Acute (3) COPD (chronic obstructive pulmonary disease) Status: Acute - Assessment and Plan (Free Text) Assessment: Assessment & Plan Clinically improving Continue current managements Diuresis Duonebs PRN Breo Ellipta 100-25 Mcg Inh 1 puff INH RQD Discontinue Oxygen, Keep Sadturation >92%
--- NOTE | 2018-04-28 23:18 | CP.PCM.PN ---
Subjective - Date & Time of Evaluation Date of Evaluation: 04/28/18 Time of Evaluation: 14:05 - Subjective Subjective: Patient seen and evaluated Denies chest pain and dyspnea Objective - Vital Signs/Intake and Output Vital Signs (last 24 hours): Temp Pulse Resp BP Pulse Ox 97.6 F 82 20 99/61 L 98 04/28/18 15:19 04/28/18 15:19 04/28/18 15:19 04/28/18 22:18 04/28/18 15:19 - Medications Medications: Current Medications Albuterol/Ipratropium (Duoneb 3 Mg/0.5 Mg (3 Ml) Ud) 3 ml INH RQ4 PRN PRN Reason: Shortness of Breath Last Admin: 04/27/18 11:41 Dose: 3 ml Aspirin (Aspirin Chewable) 81 mg PO DAILY [facility] Last Admin: 04/28/18 10:44 Dose: 81 mg Carvedilol (Coreg) 6.25 mg PO BID [facility] Last Admin: 04/28/18 19:57 Dose: Not Given Clopidogrel Bisulfate (Plavix) 75 mg PO DAILY [facility] Last Admin: 04/28/18 10:44 Dose: 75 mg Fluticasone/Vilanterol (Breo Ellipta 100-25 Mcg Inh) 1 puff INH RQD [facility] Last Admin: 04/28/18 08:43 Dose: 1 puff Furosemide (Lasix) 20 mg IVP Q12H [facility] Last Admin: 04/28/18 10:45 Dose: 20 mg Heparin Sodium (Porcine) (Heparin) 5,000 units SC Q8 [facility] Last Admin: 04/28/18 22:23 Dose: 5,000 units Hydralazine HCl (Apresoline) 10 mg PO BID [facility] Last Admin: 04/24/18 10:37 Dose: 10 mg Lisinopril (Zestril) 10 mg PO DAILY [facility] Last Admin: 04/28/18 10:44 Dose: 10 mg Rosuvastatin Calcium (Crestor) 10 mg PO HS [facility] Last Admin: 04/28/18 22:23 Dose: 10 mg Spironolactone (Aldactone) 12.5 mg PO BID [facility] Last Admin: 04/28/18 19:58 Dose: Not Given Tamsulosin HCl (Flomax) 0.4 mg PO DAILY [facility] Last Admin: 04/28/18 10:44 Dose: 0.4 mg - Labs Labs: 04/27/18 12:50 04/27/18 12:50 PT 12.1 SECONDS (9.7-12.2) 04/24/18 06:41 INR 1.1 04/24/18 06:41 APTT 36 SECONDS (21-34) H 04/24/18 06:41
[2018-04-29 07:47] VITALS: BP 128/80; TEMP 98.1; O2SAT 94
[2018-04-29 08:51] VITALS: PULSE 80
[2018-04-29] MEDS: Fluticasone-Vilanterol 100/25mcg Diskus INH SCH (10:11)
--- NOTE | 2018-04-29 11:15 | CP.PCM.DIS ---
Provider - Provider Date of Admission: 04/24/18 07:59 Attending physician: Warren Gonzalez Jr, MD Primary care physician: Dr. Gonzalez Consults: 04/24/18 14:24 Cardiology Consult Routine Comment: Consulting Provider: Corey Maddox Consulting Physician: Corey Maddox Reason for Consult: CHF Pulmonology Consult Routine Comment: Consulting Provider: Atif Casiano Consulting Physician: Atif Casiano Reason for Consult: COPD hx Time Spent in preparation of Discharge (in minutes): 30 Diagnosis - Discharge Diagnosis (1) CHF exacerbation Status: Acute Priority: High (2) COPD (chronic obstructive pulmonary disease) Status: Chronic Hospital Course - Lab Results Lab Results: Micro Results 04/24/18 07:20 Blood Blood Culture - Final NO GROWTH AFTER 5 DAYS 04/24/18 07:20 Blood Gram Stain - Final TEST NOT PERFORMED 04/24/18 06:44 Blood Blood Culture - Final NO GROWTH AFTER 5 DAYS Most Recent Lab Values WBC 5.3 K/uL (4.8-10.8) 04/27/18 12:50 RBC 4.04 Mil/uL (4.40-5.90) L 04/27/18 12:50 Hgb 11.7 g/dL (12.0-18.0) L 04/27/18 12:50 Hct 36.3 % (35.0-51.0) 04/27/18 12:50 MCV 89.9 fL (80.0-94.0) 04/27/18 12:50 MCH 29.0 pg (27.0-31.0) 04/27/18 12:50 MCHC 32.2 g/dL (33.0-37.0) L 04/27/18 12:50 RDW 14.6 % (11.5-14.5) H 04/27/18 12:50 Plt Count 214 K/uL (130-400) 04/27/18 12:50 MPV 9.5 fL (7.2-11.7) 04/27/18 12:50 Neut % (Auto) 68.5 % (50.0-75.0) 04/27/18 12:50 Lymph % (Auto) 16.2 % (20.0-40.0) L 04/27/18 12:50 [place] % (Auto) 10.1 % (0.0-10.0) H 04/27/18 12:50 Eos % (Auto) 3.2 % (0.0-4.0) 04/27/18 12:50 Baso % (Auto) 2.0 % (0.0-2.0) 04/27/18 12:50 Neut # (Auto) 3.7 K/uL (1.8-7.0) 04/27/18 12:50 Lymph # (Auto) 0.9 K/uL (1.0-4.3) L 04/27/18 12:50 [place] # (Auto) 0.5 K/uL (0.0-0.8) 04/27/18 12:50 Eos # (Auto) 0.2 K/uL (0.0-0.7) 04/27/18 12:50 Baso # (Auto) 0.1 K/uL (0.0-0.2) 04/27/18 12:50 PT 12.1 SECONDS (9.7-12.2) 04/24/18 06:41 INR 1.1 04/24/18 06:41 APTT 36 SECONDS (21-34) H 04/24/18 06:41 Puncture Site Rb 04/24/18 06:50 pCO2 51 mm/Hg (35-45) H 04/24/18 06:50 pO2 320 mm/Hg (80-100) H 04/24/18 06:50 HCO3 25.2 mmol/L (21-28) 04/24/18 06:50 ABG pH 7.33 (7.35-7.45) L 04/24/18 06:50 ABG Total CO2 28.5 mmol/L (22-28) H 04/24/18 06:50 ABG O2 Saturation 100.2 % (95-98) H 04/24/18 06:50 ABG Base Excess 0.2 mmol/L (-2.0-3.0) 04/24/18 06:50 [place] Test Na 04/24/18 06:50 ABG Potassium 4.0 mmol/L (3.6-5.2) 04/24/18 06:50 A-a O2 Difference 329.0 mm/Hg 04/24/18 06:50 Respiratory Index 1.0 04/24/18 06:50 Sodium 139.0 mmol/l (132-148) 04/24/18 06:50 Chloride 108.0 mmol/L (98-107) H 04/24/18 06:50 Glucose 88 mg/dl (75-110) 04/24/18 06:50 Lactate 0.6 mmol/L (0.7-2.1) L 04/24/18 06:50 Vent Mode Bipap 04/24/18 06:50 FiO2 100.0 % 04/24/18 06:50 Inspiratory BiPAP 10 04/24/18 06:50 Expiratory BiPAP 5 04/24/18 06:50 Sodium 137 mmol/L (132-148) 04/27/18 12:50 Potassium 4.0 mmol/L (3.6-5.2) 04/27/18 12:50 Chloride 97 mmol/L (98-107) L 04/27/18 12:50 Carbon Dioxide 33 mmol/L (22-30) H 04/27/18 12:50 Anion Gap 10 (10-20) 04/27/18 12:50 BUN 34 mg/dL (9-20) H 04/27/18 12:50 Creatinine 1.0 mg/dL (0.8-1.5) 04/27/18 12:50 Est GFR ( Amer) > 60 04/27/18 12:50 Est GFR (Non-Af Amer) > 60 04/27/18 12:50 Random Glucose 136 mg/dL (75-110) H D 04/27/18 12:50 Calcium 9.0 mg/dl (8.6-10.4) 04/27/18 12:50 Phosphorus 4.0 mg/dL (2.5-4.5) 04/27/18 12:50 Magnesium 1.7 mg/dL (1.6-2.3) 04/27/18 12:50 Total Bilirubin 0.5 mg/dL (0.2-1.3) 04/27/18 12:50 AST 22 U/L (17-59) 04/27/18 12:50 ALT 22 U/L (21-72) 04/27/18 12:50 Alkaline Phosphatase 67 U/L (38-126) 04/27/18 12:50 Troponin I 0.1020 ng/mL (0.00-0.120) 04/24/18 06:41 NT-Pro-B Natriuret Pep 4450 pg/mL (0-900) H 04/27/18 12:50 Total Protein 7.0 g/dL (6.3-8.3) 04/27/18 12:50 Albumin 3.8 g/dL (3.5-5.0) 04/27/18 12:50 Globulin 3.2 gm/dL (2.2-3.9) 04/27/18 12:50 Albumin/Globulin Ratio 1.2 (1.0-2.1) 04/27/18 12:50 Arterial Blood Potassium 4.0 mmol/L (3.6-5.2) 04/24/18 06:50 Urine Color Yellow (YELLOW) 04/24/18 07:55 Urine Clarity Clear (Clear) 04/24/18 07:55 Urine pH 5.0 (5.0-8.0) 04/24/18 07:55 Ur Specific [place] 1.009 (1.003-1.030) 04/24/18 07:55 Urine Protein 2+ mg/dL (NEGATIVE) H 04/24/18 07:55 Urine Glucose (UA) Normal mg/dL (Normal) 04/24/18 07:55 Urine Ketones Negative mg/dL (NEGATIVE) 04/24/18 07:55 Urine Blood Negative (NEGATIVE) 04/24/18 07:55 Urine Nitrate Negative (NEGATIVE) 04/24/18 07:55 Urine Bilirubin Negative (NEGATIVE) 04/24/18 07:55 Urine Urobilinogen Normal mg/dL (0.2-1.0) 04/24/18 07:55 Ur Leukocyte Esterase 2+ Ana/uL (Negative) H 04/24/18 07:55 Urine WBC (Auto) 17 /hpf (0-5) H 04/24/18 07:55 Urine RBC (Auto) 3 /hpf (0-3) 04/24/18 07:55 Hyaline Casts 6-10 /lpf (0-2) H 04/24/18 07:55 Digoxin < 0.4 ng/mL (0.8-2.0) L 04/24/18 06:41 Influenza Typ A,B (EIA) Negative for flu a/b (NEGATIVE) 04/24/18 07:34 - Hospital Course Hospital Course: Patient was evaluated and treated for complaints of SOB. Upon arrival to ED, vitals revealed temp, HR, BP WNL, however spO2 was 88% on RA. Pt was started on Duonebs and placed on BiPAP. Labs revealed respiratory acidosis, no leukocytosis. pBNP elevated at 19,000, and cardiac enzymes negative for acute [place]. Chest x-ray revealed small B/L pleural effusions, EKG revealed paced rhythm w/ PVCs. Patient was admitted and treated for acute CHF exacerbation. Dr. Maddox, cardiology and Dr. Casiano, pulmonology were consulted. Home meds were resumed, and pt was diuresed with lasix. During stay, pt was repeatedly non- compliant with requests for blood draws, medication, and instructions to use BiPAP. Repeat pBNP dcreased to 4450. Pt's symptoms improved, and it was determined he was stable for discharge home. Pt's home medications were adjusted to include: Aspirin [Aspirin Chewable] 81 mg PO DAILY #30 chew Atorvastatin [Lipitor] 20 mg PO DAILY #30 tab Clopidogrel [Plavix] 75 mg PO DAILY #30 tab Digoxin 1 tab PO DAILY #30 tab Fluticasone/Umeclidin/Vilanter [Trelegy Ellipta 100-62.5-25] 1 each IH DAILY 30 Days #1 blst.w.dev Furosemide [Lasix] 40 mg PO BID #30 tab Lisinopril [Zestril] 10 mg PO DAILY #30 tab Metoprolol Tartrate [Lopressor] 1 tab PO BID #60 tab Spironolactone [Aldactone] 12.5 mg PO BID #60 tab Tamsulosin [Flomax] 0.4 mg PO DAILY #30 cap Zolpidem [Ambien] 5 mg PO HS PRN #30 tab PRN Reason: sleeplessness Pt was instructed to follow up w/ Dr. Gonzalez, Dr. Bazan, Dr. Casiano upon discharge. Pt instructed to return to ED w/ worsening of symptoms. HPI on admission: "Patient is a 73 yo male w/ PMH Afib, PVD, CHF, CAD, HTN, HLD, COPD, BPH admitted to hospital for shortness of breath. Patient states the difficulty breathing started 3 days ago but has increased to the point where needed to come to hospital. Limited ROS as patient is not compliant with questioning. Patient was placed on bipap and given lasix which improved oxygenation. Patient makes minimal attempt to participate in questioning therefore limited information as collected. Of note patient was recently discharged from hospital but did not fill his prescriptions as is very non-compliant with routine meds." Discharge Exam - Head Exam Head Exam: ATRAUMATIC, NORMAL INSPECTION, NORMOCEPHALIC - Eye Exam Eye Exam: EOMI, Normal appearance - ENT Exam ENT Exam: Mucous Membranes Moist - Neck Exam Neck exam: Normal Inspection - Respiratory Exam Respiratory Exam: Decreased Breath Sounds, Clear to PA & Lateral, NORMAL BREATHING PATTERN, UNREMARKABLE - Cardiovascular Exam Cardiovascular Exam: REGULAR RHYTHM. absent: Tachycardia - GI/Abdominal Exam GI & Abdominal Exam: Normal Bowel Sounds, Unremarkable. absent: Distended - Extremities Exam Extremities exam: normal capillary refill, normal inspection - Neurological Exam Neurological exam: Alert, Oriented x3 - Psychiatric Exam Psychiatric exam: Normal Affect, Normal Mood - Skin Skin Exam: Dry, Intact, Normal Color, Warm Discharge Plan - Discharge Medications Prescriptions: Aspirin [Aspirin Chewable] 81 mg PO DAILY #30 chew Atorvastatin [Lipitor] 20 mg PO DAILY #30 tab Clopidogrel [Plavix] 75 mg PO DAILY #30 tab Digoxin 1 tab PO DAILY #30 tab Fluticasone/Umeclidin/Vilanter [Trelegy Ellipta 100-62.5-25] 1 each IH DAILY 30 Days #1 blst.w.dev Furosemide [Lasix] 40 mg PO BID #30 tab Lisinopril [Zestril] 10 mg PO DAILY #30 tab Metoprolol Tartrate [Lopressor] 1 tab PO BID #60 tab Spironolactone [Aldactone] 12.5 mg PO BID #60 tab Tamsulosin [Flomax] 0.4 mg PO DAILY #30 cap Zolpidem [Ambien] 5 mg PO HS PRN #30 tab PRN Reason: sleeplessness - Follow Up Plan Condition: SERIOUS Disposition: HOME/ ROUTINE Patient education suggested?: Yes Instructions: Heart Healthy Diet, Heart Failure, Adult (DC), Fluticasone and Vilanterol, Clopidogrel, Digoxin, Furosemide, Lisinopril, Tamsulosin, Zolpidem Additional Instructions: Patient is stable for discharge home. Patient is instructed to take only the medications provided at the time of discharge. Patient is to stop all other medications and take only these. Patient is instructed to take these medications as instructed on the bottle. Patient should follow up with PMD, Dr. Gonzalez within 1 week of discharge. Patient should follow up with Dr. Casiano, button maker within 2 weeks of discharge, and Dr. Maddox, evaporator helper within 2 weeks of discharge. Patient will be discharged with prescriptions for : Aspirin 81mg, 1 per day Plavix 75mg, 1 per day Digoxin 0.125mg, 1 per day Lisinopril 10mg, 1 per day Lipitor 20mg, 1 at bedtime Spironolactone 12.5mg, 2 per day, 1 in morning and 1 in evening Metoprolol 12.5mg, 2 per day, 1 in morning and 1 in evening Flomax 0.4mg, 1 per day Trelegy-Ellipta inhaler Ambien 5mg, 1 at bedtime as needed for sleeplessness Patient advised to return to the Emergency Department with any worsening of symptoms. Referrals: Atif Casiano MD [Staff Provider] - Corey Maddox MD [Staff Provider] - Padmaja Cui DO [Doctor Osteopathy] - Warren Gonzalez Jr., MD [Medical Doctor] - ( )
[2018-04-29 11:27] LABS: BASO # 0.1 K/uL (0.0-0.2); BASO % 1.3 % (0.0-2.0); EOS # 0.2 K/uL (0.0-0.7); EOS % 3.4 % (0.0-4.0); HEMOGLOBIN 11.8 g/dL (12.0-18.0); LYMPH # 0.9 K/uL (1.0-4.3); LYMPH % 17.2 % (20.0-40.0); MEAN CELL VOLUME 90.8 fL (80.0-94.0); MEAN CORPUSCULAR HEMOGLOBIN 29.4 pg (27.0-31.0); MEAN CORPUSCULAR HGB CONC 32.3 g/dL (33.0-37.0); MEAN PLATELET VOLUME 10.2 fL (7.2-11.7); MONO # 0.8 K/uL (0.0-0.8); MONO % 15.1 % (0.0-10.0); NEUT # 3.3 K/uL (1.8-7.0); RBC 4.01 Mil/uL (4.40-5.90); RED CELL DISTRIBUTION WIDTH 14.9 % (11.5-14.5); WHITE BLOOD COUNT 5.2 K/uL (4.8-10.8)
[2018-04-29 11:46] LABS: ALB/GLOB RATIO 1.2 (1.0-2.1); ALBUMIN 3.8 g/dL (3.5-5.0); CALCIUM 8.8 mg/dl (8.6-10.4)
--- NOTE | 2018-04-29 17:23 | CP.PCM.PN ---
Subjective - Date & Time of Evaluation Date of Evaluation: 04/29/18 Time of Evaluation: 09:30 - Subjective Subjective: Patient seen and examined at bedside, at this time has no complaints. States that he is feeling well after O? was discontinued yesterday. Patient was ambulate with no problems. Denies any chest pain, SOB, dizziness, or lightheadedness. Exam: General: No acute distress. Appears disheveled Heart: RRR, S1, S2 Lungs: CTA b/l Abdomen: soft nontender nondistended A&P: 1) CHF Exacerbation: Likely etiology of patient's shortness of breath. Will continue diuresis with Lasix 2) COPD: tolerating O? discontinuation. Will continue to monitor SaO2 Objective - Vital Signs/Intake and Output Vital Signs (last 24 hours): Temp Pulse Resp BP Pulse Ox 98.1 F 80 20 128/80 94 L 04/29/18 07:10 04/29/18 07:50 04/29/18 07:10 04/29/18 07:10 04/29/18 07:10 - Labs Labs: 04/29/18 11:18 04/29/18 11:18 PT 12.1 SECONDS (9.7-12.2) 04/24/18 06:41 INR 1.1 04/24/18 06:41 APTT 36 SECONDS (21-34) H 04/24/18 06:41
== END 2018-04-29 13:27 | disposition home or self-care (01) | DRG 292 ==
LOC: C.ER 05:48 → C.9E 07:59 → C.6T 10:47
PROVIDERS: ADMIT Internal Medicine; ATTEND Internal Medicine
PROC: 5A09457 Assistance with Respiratory Ventilation, 24-96 Consecutive Hours, Continuous Positive Airway Pressure (ICD-10-PCS; principal; 2018-04-24)
DX: I11.0 Hypertensive heart disease with heart failure (principal); E87.2 Acidosis; I50.23 Acute on chronic systolic (congestive) heart failure; I25.10 Atherosclerotic heart disease of native coronary artery without angina pectoris; I42.9 Cardiomyopathy, unspecified; I48.91 Unspecified atrial fibrillation; I73.9 Peripheral vascular disease, unspecified; J43.9 Emphysema, unspecified; N40.0 Benign prostatic hyperplasia without lower urinary tract symptoms; E78.5 Hyperlipidemia, unspecified; Z79.02 Long term (current) use of antithrombotics/antiplatelets; Z79.82 Long term (current) use of aspirin; Z87.891 Personal history of nicotine dependence; Z91.19 Patient's noncompliance with other medical treatment and regimen; Z95.810 Presence of automatic (implantable) cardiac defibrillator

== ENCOUNTER 2018-05-19 19:07 | Inpatient (IN) | payer MEDICARE ==
[2018-05-19 19:07] VITALS: BMI 23.7
[2018-05-19] MEDS ORDERED: Albuterol-Ipratrop 3 mg / 0.5 (3 ml) UD INH STA (19:39)
--- NOTE | 2018-05-19 19:59 | C.PDOC ---
History Of Present Illness 73 year old male brought by S reports 4 day history of worsened SOB. Patient reports he is always short of breathe because of his history of CHF and COPD. He was on 2 L of O2 at home and when the EMS arrived his O2 saturation was at 88%. He was given no medication on S. Upon arrival, he was put on a non-rebreather mask and O2 saturation improved to 100%. He admits to feeling a "weight" on his chest. He denies fever or cough. Time Seen by Provider: 05/19/18 19:18 Chief Complaint (Nursing): Shortness Of Breath History Per: Patient, EMS History/Exam Limitations: no limitations Onset/Duration Of Symptoms: Days (4) Current Symptoms Are (Timing): Still Present Quality: Pressure Associated Symptoms: Other (SOB and chest pressure). denies: Fever, Chills Past Medical History Reviewed: Historical Data, Nursing Documentation, Vital Signs Vital Signs: Last Vital Signs Temp 98 F 05/19/18 19:26 Pulse 114 H 05/19/18 19:26 Resp 36 H 05/19/18 19:26 BP 163/105 H 05/19/18 19:26 Pulse Ox 88 L 05/19/18 19:26 - Medical History PMH: Atrial Fibrillation, Benign Prostatic Hyperplasia, CAD, CHF, COPD, Emphysema, HTN, Hyperlipidemia, Peripheral Edema Denies: HIV, Chronic Kidney Disease Surgical History: Hernia Repair, Pacemaker - [facility] Procedures ASSISTANCE WITH RESPIRATORY VENTILATION, 24-96 HRS, CPAP (04/24/18) ASSISTANCE WITH RESPIRATORY VENTILATION, <24 HRS, CPAP (03/03/18) FLUOROSCOPY OF LEFT HEART USING LOW OSMOLAR CONTRAST (12/08/17) FLUOROSCOPY OF MULT COR ART USING L OSM CONTRAST (12/08/17) INSERTION OF ENDOTRACHEAL AIRWAY INTO TRACHEA, VIA OPENING (12/08/17) MEASURE OF CARDIAC SAMPL & PRESSURE, L HEART, PERC APPROACH (12/08/17) RESPIRATORY VENTILATION, GREATER THAN 96 CONSECUTIVE HOURS (12/08/17) Family History: States: Unknown Family Hx - Social History Hx Alcohol Use: No Hx Substance Use: No - Immunization History Hx Tetanus Toxoid Vaccination: No Hx Influenza Vaccination: No Hx Pneumococcal Vaccination: No Review Of Systems Constitutional: Negative for: Fever, Chills, Weakness Cardiovascular: Positive for: Chest Pain (chest pressure). Negative for: Palpitations Respiratory: Positive for: Shortness of Breath (worsened). Negative for: Cough Gastrointestinal: Negative for: Nausea, Vomiting Neurological: Negative for: Weakness, Numbness, Dizziness Physical Exam - Physical Exam Appears: Non-toxic, Other (moderate distress) Skin: Normal Color, Warm, Dry Head: Atraumatic, Normacephalic Chest: Symmetrical, No Deformity, No Tenderness, Other (pacemaker to left side of chest) Cardiovascular: Rhythm Regular, No Murmur Respiratory: Wheezing (course breathe with expiratory wheezing bilaterally) Gastrointestinal/Abdominal: Soft, No Tenderness Extremity: Other (1+ pitting edema to bilateral lower extremities) Pulses: Left Radial: Normal, Right Radial: Normal Neurological/Psych: Oriented x3, Normal Speech, Normal Cognition ED Course And Treatment - Laboratory Results Result Diagrams: 05/20/18 08:56 05/20/18 08:56 ECG: Interpreted By Me, Viewed By Me ECG Rhythm: V Paced Interpretation Of ECG: Occasional QtC. No condordant ST changes. Rate From EC O2 Sat by Pulse Oximetry: 88 - Radiology CXR: Interpreted by Me CXR Interpretation: Yes: Other (Pleural effusions bilaterally. Opacities to bilateral mid/lower lungs.) Progress Note: Labs ordered with ABG. Patient given Duoneb INH. Medical Decision Making Medical Decision Making: Patient placed on NRB upon arrival, with improvement of O2 sat to 100%. Labs, EKG, and CXR done. Albuterol neb treatment given. Significant opacities noted bilaterally on CXR. Labs with elevated pro BNP, likely CHF exacerbation. 40mg lasix ivp given. Patient still having increased work of breathing despite O2 via NRB, so BiPAP initiated. He later did not tolerate the mask, so he was switched to Vapotherm. Case discussed with Dr. Gonzalez, who accepts patient for admission. Case also discussed with medical doctor md/medical director. Disposition - Disposition Disposition: HOSPITALIZED Disposition Time: 20:56 Condition: FAIR - Clinical Impression Clinical Impression: Congestive heart failure - Scribe Statement The provider has reviewed the documentation as recorded by the Scribe (Cathy Mack) All medical record entries made by the Scribe were at my direction and personally dictated by me. I have reviewed the chart and agree that the record accurately reflects my personal performance of the history, physical exam, medical decision making, and the department course for this patient. I have also personally directed, reviewed, and agree with the discharge instructions and disposition.
[2018-05-19 20:09] LABS: BASO # 0.1 K/uL (0.0-0.2); BASO % 0.9 % (0.0-2.0); EOS # 0.1 K/uL (0.0-0.7); EOS % 0.6 % (0.0-4.0); HEMOGLOBIN 11.8 g/dL (12.0-18.0); LYMPH % 12.2 % (20.0-40.0); MEAN CORPUSCULAR HGB CONC 31.8 g/dL (33.0-37.0); MEAN PLATELET VOLUME 9.3 fL (7.2-11.7); MONO % 11.7 % (0.0-10.0); NEUT # 6.4 K/uL (1.8-7.0); NEUT % 74.6 % (50.0-75.0); NRBC % 0.2 % (0.0-2.0); RBC 4.2 Mil/uL (4.40-5.90); RED CELL DISTRIBUTION WIDTH 15.7 % (11.5-14.5)
[2018-05-19 20:11] LABS: WHITE BLOOD COUNT 8.6 K/uL (4.8-10.8)
[2018-05-19 20:14] LABS: INR 1.1; PROTHROMBIN TIME 12.4 SECONDS (9.7-12.2)
[2018-05-19] MEDS ORDERED: Albuterol-Ipratrop 3 mg / 0.5 (3 ml) UD ONE ×2 (20:17→23:28)
[2018-05-19 20:18] LABS: ALB/GLOB RATIO 1.2 (1.0-2.1); ALBUMIN 3.8 g/dL (3.5-5.0); ALT/SGPT 21 U/L (21-72); AST/SGOT 28 U/L (17-59); BLOOD UREA NITROGEN 26 mg/dL (9-20); CALCIUM 8.6 mg/dl (8.6-10.4); GFR NON-AFRICAN AMERICAN > 60
[2018-05-19 20:22] LABS: ABG ALLEN TEST POS; ARTERIAL BLOOD GAS HCO3 29.7 mmol/L (21-28); ARTERIAL BLOOD GAS HEMOGLOBIN 11.1 g/dL (11.7-17.4); ARTERIAL BLOOD GAS O2 SAT 100.2 % (95-98); ARTERIAL BLOOD GAS PCO2 55 mm/Hg (35-45); ARTERIAL BLOOD GAS PH 7.38 (7.35-7.45); ARTERIAL BLOOD GAS PO2 203 mm/Hg (80-100); ARTERIAL BLOOD GAS TCO2 34.2 mmol/L (22-28)
[2018-05-19 20:29] LABS: B-TYPE NATRIURETIC PEPTIDE 15600 pg/mL (0-900)
--- NOTE | 2018-05-19 21:16 | CP.PCM.HP ---
History of Present Illness - History of Present Illness History of Present Illness: PGY-1 Delmy Cohen D.O. H&P for Dr. Gonzalez's service: Hungarian translator and interpreter #GVER Patient is a 73 yo male with history of CHF, COPD on home O2, CAD, A fib, PVD, HTN, HLD, and BPH who presents with shortness of breath. Patient is on BiPAP and uncooperative during exam. Patient says that severe SOB and chest pressure started today. He has a history of noncompliance but states that he has been taking all of his medications as prescribed. He refuses to answer further questions and asks to be left alone. Per ED, patient desaturated to 88% with respiratory distress on NC. He was placed on nonrebreather and given Lasix IV 40 mg. He was saturating at 100% but still with accessory muscle use. He was then placed on BiPAP and is breathing comfortably. Of note, patient has had several recent hospitalizations with similar presentati ons, and he was treated for CHF exacerbations. PMH: CHF, COPD on home O2, CAD, cardiac arrest 12/2017, A fib, PVD, HTN, HLD, BPH PSH: hernia repair, pacemaker/AICD, cardiac cath 12/2017 (nonobstructive CAD, nonischemic cardiomyopathy) Meds: ASA 81 mg PO daily, Plavix 75 mg PO daily, Digoxin 0.125 mg PO daily, Lasix 40 mg PO daily, Lisinopril 10 mg PO daily, Metoprolol 12.5 mg PO BID, Spironolactone 12.5 mg PO daily, Flomax 0.4 mg PO daily, Lipitor 20 mg PO QHS, Trelegy Ellipta inhaler, Ambien 5 mg PO QHS PRN All: Iodine contrast- hypotension-->code blue FH: unknown SH: former alcohol use, former smoker, denies illicit drug use PMD: Carlos Cardio: Tan Pulm: Oh Present on Admission - Present on Admission Any Indicators Present on Admission: No History of DVT/PE: No History of Uncontrolled Diabetes: No Urinary Catheter: No Decubitus Ulcer Present: No History Surgical Site Infection Following: None Review of Systems - Review of Systems Systems not reviewed;Unavailable: Uncooperative Past Patient History - Infectious Disease Hx of Infectious Diseases: None - Tetanus Immunizations Tetanus Immunization: Unknown - Past Medical History & Family History Past Medical History?: Yes Past Family History: Reviewed and not pertinent - Past Social History Smoking Status: Former Smoker Chewing Tobacco Use: No Cigar Use: No Alcohol: None Drugs: Denies - CARDIAC Hx Atrial Fibrillation: Yes Hx Congestive Heart Failure: Yes Hx Hypertension: Yes Hx Pacemaker: Yes Hx Peripheral Edema: Yes - PULMONARY Hx Chronic Obstructive Pulmonary Disease (COPD): Yes Hx Emphysema: Yes - NEUROLOGICAL Hx Neurological Disorder: No - HEENT Hx HEENT Problems: Yes Other/Comment: Eye glasses - RENAL Hx Chronic Kidney Disease: No - ENDOCRINE/METABOLIC Hx Endocrine Disorders: No - HEMATOLOGICAL/ONCOLOGICAL Hx Human Immunodeficiency Virus (HIV): No - INTEGUMENTARY Hx Dermatological Problems: No - MUSCULOSKELETAL/RHEUMATOLOGICAL Hx Musculoskeletal Disorders: No Hx Falls: No - GASTROINTESTINAL Hx Gastrointestinal Disorders: No - GENITOURINARY/GYNECOLOGICAL Hx Genitourinary Disorders: Yes Hx Prostate Problems: Yes - PSYCHIATRIC Hx Substance Use: No - SURGICAL HISTORY Hx Surgeries: Yes Hx Herniorrhaphy: Yes Other/Comment: Hx Pacemaker insertion - ANESTHESIA Hx Anesthesia: Yes Hx Anesthesia Reactions: No Hx Malignant Hyperthermia: No Meds Allergies/Adverse Reactions: Allergies Allergy/AdvReac Type Severity Reaction Status Date / Time Iodinated Contrast- Oral and AdvReac ANAPHYLAXIS Verified 05/19/18 19:31 IV Dye Physical Exam - Constitutional Appears: Non-toxic, Agitated - Head Exam Head Exam: ATRAUMATIC, NORMAL INSPECTION - Eye Exam Eye Exam: EOMI, Normal appearance - ENT Exam ENT Exam: Mucous Membranes Moist - Neck Exam Neck exam: Positive for: Normal Inspection Additional comments: no JVD - Respiratory Exam Respiratory Exam: Decreased Breath Sounds, Rales. absent: Respiratory Distress Additional comments: on BiPAP - Cardiovascular Exam Cardiovascular Exam: Tachycardia, REGULAR RHYTHM - GI/Abdominal Exam GI & Abdominal Exam: Soft. absent: Tenderness - Extremities Exam Extremities exam: Positive for: pedal edema (2+ b/l ankles), pedal pulses present. Negative for: tenderness - Neurological Exam Neurological exam: Alert, Oriented x3 - Psychiatric Exam Psychiatric exam: Agitated - Skin Skin Exam: Dry, Normal Color, Warm Results - Vital Signs Recent Vital Signs: Last Vital Signs Temp 98 F 05/19/18 19:26 Pulse 114 H 05/19/18 19:26 Resp 22 05/19/18 20:05 BP 163/105 H 02/17/19 19:26 Pulse Ox 88 L 05/19/18 20:10 - Labs Result Diagrams: 05/19/18 19:58 05/19/18 19:58 Labs: Laboratory Results - last 24 hr 05/19/18 05/19/18 05/19/18 19:58 19:58 19:58 WBC 8.6 D RBC 4.20 L Hgb 11.8 L Hct 37.0 MCV 88.0 D MCH 28.0 MCHC 31.8 L RDW 15.7 H Plt Count 242 MPV 9.3 Neut % (Auto) 74.6 Lymph % (Auto) 12.2 L [place] % (Auto) 11.7 H Eos % (Auto) 0.6 Baso % (Auto) 0.9 Neut # (Auto) 6.4 Lymph # (Auto) 1.0 [place] # (Auto) 1.0 H Eos # (Auto) 0.1 Baso # (Auto) 0.1 PT 12.4 H INR 1.1 APTT 31 Puncture Site pCO2 pO2 HCO3 ABG pH ABG Total CO2 ABG O2 Saturation ABG Base Excess ABG Hemoglobin ABG Carboxyhemoglobin POC ABG HHb (Measured) ABG Methemoglobin Maicol Test A-a O2 Difference Respiratory Index Hgb O2 Saturation FiO2 Sodium 139 Potassium 5.0 Chloride 104 Carbon Dioxide 32 H Anion Gap 9 L BUN 26 H Creatinine 1.1 Est GFR ( Amer) > 60 Est GFR (Non-Af Amer) > 60 Random Glucose 102 Calcium 8.6 Total Bilirubin 0.4 AST 28 ALT 21 D Alkaline Phosphatase 67 Troponin I 0.1510 H* NT-Pro-B Natriuret Pep 77180 H Total Protein 7.0 Albumin 3.8 Globulin 3.2 Albumin/Globulin Ratio 1.2 05/19/18 20:15 WBC RBC Hgb Hct MCV MCH MCHC RDW Plt Count MPV Neut % (Auto) Lymph % (Auto) [place] % (Auto) Eos % (Auto) Baso % (Auto) Neut # (Auto) Lymph # (Auto) [place] # (Auto) Eos # (Auto) Baso # (Auto) PT INR APTT Puncture Site Rra pCO2 55 H pO2 203 H HCO3 29.7 H ABG pH 7.38 ABG Total CO2 34.2 H ABG O2 Saturation 100.2 H ABG Base Excess 6.1 H ABG Hemoglobin 11.1 L ABG Carboxyhemoglobin 2.6 H POC ABG HHb (Measured) -0.2 L ABG Methemoglobin 0.8 Maicol Test Pos A-a O2 Difference 441.0 Respiratory Index 2.2 Hgb O2 Saturation 96.8 FiO2 100.0 Sodium Potassium Chloride Carbon Dioxide Anion Gap BUN Creatinine Est GFR ( Amer) Est GFR (Non-Af Amer) Random Glucose Calcium Total Bilirubin AST ALT Alkaline Phosphatase Troponin I NT-Pro-B Natriuret Pep Total Protein Albumin Globulin Albumin/Globulin Ratio - EKG Data EKG Interpreted by: Myself EKG shows normal: Sinus rhythm Rate: Tachycardia - Imaging and Cardiology Chest x-ray Status: Image reviewed by me Assessment & Plan - Assessment and Plan (Free Text) Assessment: Patient is a 73 yo male with history of CHF, COPD on home O2, CAD, A fib, PVD, HTN, HLD, and BPH who presents with shortness of breath. Appears to be in CHF exacerbation with underlying COPD. Plan: Acute exacerbation of systolic congestive heart failure (HFrEF) - s/p AICD/pacemaker - Echo 04/03/18: EF 20-25%, mod dialted LV, mild LVH, global hypokinesis LV, grade I diastolic dysfunction, biatrial enlargement, mild MR, mod TR, mild pulm HTN (42 mmHg), trace pericardial effusion - CXR: venous congestion - f/u final read - BiPAP PRN - Monitor on telemetry - Digoxin level pending - Digoxin 0.125 mg PO daily- hold until dig level - Lasix 40 mg IV Q12H - Lisinopril 10 mg PO daily - Metoprolol 12.5 mg PO BID - Spironolactone 12.5 mg PO daily - Cardiology consulted (Tan) Elevated troponin- suspect due to CHF - Trop 0.151- trend - EKG: Sinus tachycardia, poor quality- trend - Cardiac cath 12/2017- nonobstructive CAD, nonischemic cardiomyopathy - Cardiology consulted (Tan) Chronic obstructive pulmonary disease - On home O2 - BiPAP PRN - Duoneb Q4H [facility] - Pulmonology consulted (Oh) Coronary artery disease - s/p AICD/pacemaker - Cardiac cath 12/2017- nonobstructive CAD, nonischemic cardiomyopathy - ASA 81 mg PO daily - Plavix 75 mg PO daily Paroxysmal atrial fibrillation - s/p AICD/pacemaker - EKG: Sinus tachycardia, poor quality - Monitor on telemetry - Digoxin 0.125 mg PO daily- hold until dig level Hypertension - Vitals Q6H - Lisinopril 10 mg PO daily - Metoprolol 12.5 mg PO BID - Spironolactone 12.5 mg PO daily - Lasix 40 mg IV Q12H Hyperlipidemia - Crestor 10 mg PO QHS Benign prostatic hypertrophy - Flomax 0.4 mg PO daily Ppx: VTE: SCDs contraindicated due to pedal edema, Heparin 5000 units SC Q8H GI: not indicated Code status: full code Case discussed with attending, Dr. oGnzalez.
[2018-05-20] MEDS: Albuterol-Ipratrop 3 mg / 0.5 (3 ml) UD INH SCH ×8 (04:15→23:34)
[2018-05-20 09:04] LABS: BASO # 0.1 K/uL (0.0-0.2); BASO % 1.3 % (0.0-2.0); EOS % 0.2 % (0.0-4.0); HEMOGLOBIN 12.7 g/dL (12.0-18.0); LYMPH # 0.9 K/uL (1.0-4.3); LYMPH % 10.1 % (20.0-40.0); MEAN CORPUSCULAR HEMOGLOBIN 29.1 pg (27.0-31.0); MEAN CORPUSCULAR HGB CONC 32.4 g/dL (33.0-37.0); MEAN PLATELET VOLUME 9.5 fL (7.2-11.7); MONO # 0.7 K/uL (0.0-0.8); MONO % 8.6 % (0.0-10.0); NEUT # 6.9 K/uL (1.8-7.0); NEUT % 79.8 % (50.0-75.0); RBC 4.34 Mil/uL (4.40-5.90); RED CELL DISTRIBUTION WIDTH 15.2 % (11.5-14.5); WHITE BLOOD COUNT 8.7 K/uL (4.8-10.8)
[2018-05-20 09:05] LABS: MEAN CELL VOLUME 90.1 fL (80.0-94.0)
[2018-05-20 09:22] LABS: ALB/GLOB RATIO 1.1 (1.0-2.1); ALT/SGPT 11 U/L (21-72); AST/SGOT 31 U/L (17-59); BLOOD UREA NITROGEN 26 mg/dL (9-20); GFR NON-AFRICAN AMERICAN > 60
--- NOTE | 2018-05-20 10:00 | CP.PCM.PN ---
Subjective - Date & Time of Evaluation Date of Evaluation: 05/20/18 Time of Evaluation: 09:56 - Subjective Subjective: Cesilia Jones PGY1 Progress Note for Dr. Gonzalez Patient was examined at bedside this morning. He reports that he has shortness of breath that is relieved with oxygen. He reports chest tightness. He denies dizziness, fever, chills, nausea, or vomiting. Objective - Vital Signs/Intake and Output Vital Signs (last 24 hours): Temp Pulse Resp BP Pulse Ox 97.2 F L 103 H 20 136/84 98 05/20/18 07:30 05/20/18 07:30 05/20/18 07:30 05/20/18 07:30 05/20/18 07:30 - Medications Medications: Current Medications Albuterol/Ipratropium (Duoneb 3 Mg/0.5 Mg (3 Ml) Ud) 3 ml INH RQ4 [facility] Last Admin: 05/20/18 04:15 Dose: Not Given Aspirin (Aspirin Chewable) 81 mg PO DAILY [facility] Clopidogrel Bisulfate (Plavix) 75 mg PO DAILY [facility] Furosemide (Lasix) 40 mg IVP Q12 [facility] Heparin Sodium (Porcine) (Heparin) 5,000 units SC Q8 [facility] Last Admin: 05/20/18 05:31 Dose: 5,000 units Influenza Virus Vaccine (Flucelvax Quad [id number] Syr) 60 mcg IM .ONCE ONE Stop: 05/21/18 11:01 Lisinopril (Zestril) 10 mg PO DAILY [facility] Metoprolol Tartrate (Lopressor) 12.5 mg PO BID [facility] Last Admin: 05/19/18 22:45 Dose: 12.5 mg Pneumococcal Polyvalent Vaccine (Pneumovax 23 Vaccine) 0.5 ml IM .ONCE ONE Stop: 05/21/18 10:01 Rosuvastatin Calcium (Crestor) 10 mg PO HS [facility] Spironolactone (Aldactone) 12.5 mg PO BID [facility] Last Admin: 05/19/18 22:44 Dose: 12.5 mg Tamsulosin HCl (Flomax) 0.4 mg PO DAILY [facility] - Labs Labs: 05/20/18 08:56 05/20/18 08:56 PT 12.4 SECONDS (9.7-12.2) H 05/19/18 19:58 INR 1.1 05/19/18 19:58 APTT 31 SECONDS (21-34) 05/19/18 19:58 - Constitutional Appears: No Acute Distress, Chronically Ill - Head Exam Head Exam: ATRAUMATIC, NORMOCEPHALIC - Eye Exam Eye Exam: EOMI, Normal appearance Pupil Exam: NORMAL ACCOMODATION - Neck Exam Additional comments: no JVD - Respiratory Exam Respiratory Exam: Clear to Ausculation Bilateral, NORMAL BREATHING PATTERN. absent: Rales, Rhonchi, Wheezes - Cardiovascular Exam Cardiovascular Exam: Irregular Rhythm, +S1, +S2. absent: Gallop, Rubs - GI/Abdominal Exam GI & Abdominal Exam: Soft, Normal Bowel Sounds. absent: Distended, Tenderness - Extremities Exam Extremities Exam: Pedal Edema - Neurological Exam Neurological Exam: Alert, Awake, Oriented x3 - Psychiatric Exam Psychiatric exam: Normal Affect, Normal Mood - Skin Skin Exam: Normal Color Assessment and Plan - Assessment and Plan (Free Text) Assessment: Patient is a 73 yo male with history of CHF, COPD on home O2, CAD, A fib, PVD, HTN, HLD, and BPH who presents with shortness of breath. Admitted for CHF exacerbation with underlying COPD. Plan: Acute exacerbation of systolic congestive heart failure (HFrEF) - s/p AICD/pacemaker - Echo 04/03/18: EF 20-25%, mod dialted LV, mild LVH, global hypokinesis LV, grade I diastolic dysfunction, biatrial enlargement, mild MR, mod TR, mild pulm HTN (42 mmHg), trace pericardial effusion - CXR:dense consolidative opacifications in the mid to lower lung zones. moderated loculated b/l pleural effusions. cardiomegaly. atherosclerotic calcification in aorta. - BiPAP PRN - NC PRN - NRB PRN - Monitor on telemetry - Digoxin 0.125 mg PO daily - Lasix 60 mg IV Q12H - Lisinopril 10 mg PO daily - Metoprolol 12.5 mg PO BID - Spironolactone 12.5 mg PO daily - Cardiology consulted (Tan) - f/u recs Elevated troponin- suspect due to CHF - Trop 0.15, 0.15, 0.17 - imdur 60mg PO daily - EKG: ventricular paced rhythm - Cardiac cath 12/2017- nonobstructive CAD, nonischemic cardiomyopathy - Cardiology consulted (Tan) - f/u recs Chronic obstructive pulmonary disease - On home O2 - BiPAP PRN - NC PRN - NRB PRN - Duoneb Q4H [facility] - Pulmonology consulted (Oh) - f/u recs Coronary artery disease - s/p AICD/pacemaker - Cardiac cath 12/2017- nonobstructive CAD, nonischemic cardiomyopathy - ASA 81 mg PO daily - Plavix 75 mg PO daily Paroxysmal atrial fibrillation - s/p AICD/pacemaker - EKG: ventricular paced rhythm - Monitor on telemetry - Digoxin 0.125 mg PO daily Hypertension - Vitals Q6H - Lisinopril 10 mg PO daily - Metoprolol 12.5 mg PO BID - Spironolactone 12.5 mg PO daily - Lasix 40 mg IV Q12H Hyperlipidemia - Crestor 10 mg PO QHS Benign prostatic hypertrophy - Flomax 0.4 mg PO daily Ppx: VTE: SCDs contraindicated due to pedal edema, Heparin 5000 units SC Q8H GI: not indicated HHD Code status: full code Case discussed with attending, Dr. Gonzalez.
--- NOTE | 2018-05-20 11:56 | RAD ---
Chest x-ray single frontal view HISTORY: Shortness of breath. Comparison: 04/24/2018 Findings: Dense consolidative opacifications somewhat masslike in appearance in the mid to lower lung zones. Moderate loculated bilateral pleural effusions. Cardiomegaly. Left-sided pacemaker. Atherosclerotic calcification plaque in the aorta. Degenerative changes in the spine and shoulders. Impression: Dense consolidative opacifications somewhat masslike in appearance in the mid to lower lung zones. Moderate loculated bilateral pleural effusions. Cardiomegaly. Left-sided pacemaker. Atherosclerotic calcification plaque in the aorta.
[2018-05-20] MEDS: Digoxin 125 mcg (0.125 mg) Tab PO SCH (18:16)
--- NOTE | 2018-05-20 20:38 | CP.PCM.CON ---
History of Present Illness - History of Present Illness History of Present Illness: Patient is a 73 yo male with history of Chronic systolic CHF, COPD on home O2, CAD, A fib, PVD, HTN, HLD, and BPH who presents with shortness of breath. Patient is on BiPAP and uncooperative during exam. Patient says that severe SOB and chest pressure started today. He has a history of noncompliance but states that he has been taking all of his medications as prescribed. He refuses to answer further questions and asks to be left alone. Per ED, patient desaturated to 88% with respiratory distress on NC. He was placed on nonrebreather and given Lasix IV 40 mg. He was saturating at 100% but still with accessory muscle use. He was then placed on BiPAP and is breathing comfortably. Of note, patient has had several recent hospitalizations with similar presentations, and he was treated for CHF exacerbations. PMH: CHF, COPD on home O2, CAD, cardiac arrest 12/2017, A fib, PVD, HTN, HLD, BPH PSH: hernia repair, pacemaker/AICD, cardiac cath 12/2017 (nonobstructive CAD, nonischemic cardiomyopathy) Meds: ASA 81 mg PO daily, Plavix 75 mg PO daily, Digoxin 0.125 mg PO daily, Lasix 40 mg PO daily, Lisinopril 10 mg PO daily, Metoprolol 12.5 mg PO BID, Spironolactone 12.5 mg PO daily, Flomax 0.4 mg PO daily, Lipitor 20 mg PO QHS, Trelegy Ellipta inhaler, Ambien 5 mg PO QHS PRN All: Iodine contrast- hypotension-->code blue FH: unknown SH: former alcohol use, former smoker, denies illicit drug use PMD: Carlos Cardio: Tan Pulm: Oh Present on Admission - Present on Admission Any Indicators Present on Admission: No History of DVT/PE: No History of Uncontrolled Diabetes: No Urinary Catheter: No Decubitus Ulcer Present: No History Surgical Site Infection Following: None Review of Systems - Review of Systems Systems not reviewed;Unavailable: Uncooperative Meds Allergies/Adverse Reactions: Allergies Allergy/AdvReac Type Severity Reaction Status Date / Time Iodinated Contrast- Oral and AdvReac ANAPHYLAXIS Verified 05/19/18 19:31 IV Dye Physical Exam - Constitutional Appears: Non-toxic, Agitated - Head Exam Head Exam: ATRAUMATIC, NORMAL INSPECTION - Eye Exam Eye Exam: EOMI, Normal appearance - ENT Exam ENT Exam: Mucous Membranes Moist - Neck Exam Neck exam: Positive for: Normal Inspection Additional comments: no JVD - Respiratory Exam Respiratory Exam: Decreased Breath Sounds, Rales. absent: Respiratory Distress Additional comments: on BiPAP - Cardiovascular Exam Cardiovascular Exam: Tachycardia, REGULAR RHYTHM - GI/Abdominal Exam GI & Abdominal Exam: Soft. absent: Tenderness - Extremities Exam Extremities exam: Positive for: pedal edema (2+ b/l ankles), pedal pulses present. Negative for: tenderness - Neurological Exam Neurological exam: Alert, Oriented x3 - Psychiatric Exam Psychiatric exam: Agitated - Skin Skin Exam: Dry, Normal Color, Warm Past Patient History - Infectious Disease Hx of Infectious Diseases: None - Tetanus Immunizations Tetanus Immunization: Unknown - Past Medical History & Family History Past Medical History?: Yes - Past Social History Smoking Status: Former Smoker - CARDIAC Hx Atrial Fibrillation: Yes Hx Congestive Heart Failure: Yes Hx Hypertension: Yes Hx Pacemaker: Yes Hx Peripheral Edema: Yes - PULMONARY Hx Chronic Obstructive Pulmonary Disease (COPD): Yes Hx Emphysema: Yes - NEUROLOGICAL Hx Neurological Disorder: No - HEENT Hx HEENT Problems: Yes Other/Comment: Eye glasses - RENAL Hx Chronic Kidney Disease: No - ENDOCRINE/METABOLIC Hx Endocrine Disorders: No - HEMATOLOGICAL/ONCOLOGICAL Hx Human Immunodeficiency Virus (HIV): No - INTEGUMENTARY Hx Dermatological Problems: No - MUSCULOSKELETAL/RHEUMATOLOGICAL Hx Musculoskeletal Disorders: No Hx Falls: No - GASTROINTESTINAL Hx Gastrointestinal Disorders: No - GENITOURINARY/GYNECOLOGICAL Hx Genitourinary Disorders: Yes Hx Prostate Problems: Yes - PSYCHIATRIC Hx Substance Use: Yes - SURGICAL HISTORY Hx Surgeries: Yes Hx Herniorrhaphy: Yes Other/Comment: Hx Pacemaker insertion - ANESTHESIA Hx Anesthesia: Yes Hx Anesthesia Reactions: No Hx Malignant Hyperthermia: No Meds Allergies/Adverse Reactions: Allergies Allergy/AdvReac Type Severity Reaction Status Date / Time Iodinated Contrast- Oral and AdvReac ANAPHYLAXIS Verified 05/19/18 19:31 IV Dye - Medications Medications: Current Medications Albuterol/Ipratropium (Duoneb 3 Mg/0.5 Mg (3 Ml) Ud) 3 ml INH RQ4 [facility] Last Admin: 05/20/18 19:08 Dose: 3 ml Aspirin (Aspirin Chewable) 81 mg PO DAILY [facility] Last Admin: 05/20/18 10:27 Dose: 81 mg Clopidogrel Bisulfate (Plavix) 75 mg PO DAILY [facility] Last Admin: 05/20/18 10:27 Dose: 75 mg Digoxin (Digoxin) 0.125 mg PO DAILY@1800 [facility] Last Admin: 05/20/18 18:16 Dose: 0.125 mg Furosemide (Lasix) 60 mg IVP Q12 [facility] Heparin Sodium (Porcine) (Heparin) 5,000 units SC Q8 [facility] Last Admin: 05/20/18 14:09 Dose: 5,000 units Influenza Virus Vaccine (Flucelvax Quad [id number] Syr) 60 mcg IM .ONCE ONE Stop: 05/21/18 11:01 Isosorbide Mononitrate (Imdur) 60 mg PO DAILY [facility] Last Admin: 05/20/18 12:55 Dose: 60 mg Lisinopril (Zestril) 10 mg PO DAILY [facility] Last Admin: 05/20/18 10:27 Dose: 10 mg Metoprolol Tartrate (Lopressor) 12.5 mg PO BID [facility] Last Admin: 05/20/18 18:24 Dose: Not Given Pneumococcal Polyvalent Vaccine (Pneumovax 23 Vaccine) 0.5 ml IM .ONCE ONE Stop: 05/21/18 10:01 Rosuvastatin Calcium (Crestor) 10 mg PO HS [facility] Spironolactone (Aldactone) 12.5 mg PO BID [facility] Last Admin: 05/20/18 18:24 Dose: Not Given Tamsulosin HCl (Flomax) 0.4 mg PO DAILY [facility] Last Admin: 05/20/18 10:27 Dose: 0.4 mg Zolpidem Tartrate (Ambien) 5 mg PO HS PRN PRN Reason: sleeplessness Results - Vital Signs Recent Vital Signs: Last Vital Signs Temp 98.0 F 05/20/18 15:00 Pulse 66 05/20/18 15:40 Resp 20 05/20/18 19:11 BP 109/68 05/20/18 15:00 Pulse Ox 94 L 05/20/18 15:00 - Labs Result Diagrams: 05/20/18 08:56 05/20/18 08:56 Labs: Laboratory Results - last 24 hr 05/20/18 05/20/18 05/20/18 02:50 08:56 08:56 WBC 8.7 RBC 4.34 L Hgb 12.7 Hct 39.1 MCV 90.1 D MCH 29.1 MCHC 32.4 L RDW 15.2 H Plt Count 247 MPV 9.5 Neut % (Auto) 79.8 H Lymph % (Auto) 10.1 L [place] % (Auto) 8.6 Eos % (Auto) 0.2 Baso % (Auto) 1.3 Neut # (Auto) 6.9 Lymph # (Auto) 0.9 L [place] # (Auto) 0.7 Eos # (Auto) 0.0 Baso # (Auto) 0.1 Sodium 137 Potassium 4.4 Chloride 99 Carbon Dioxide 32 H Anion Gap 10 BUN 26 H Creatinine 0.9 Est GFR ( Amer) > 60 Est GFR (Non-Af Amer) > 60 Random Glucose 140 H D Calcium 9.0 Phosphorus 4.5 Magnesium 1.9 Total Bilirubin 0.8 AST 31 ALT 11 L D Alkaline Phosphatase 79 Troponin I 0.1570 H* 0.1760 H* Total Protein 7.4 Albumin 4.0 Globulin 3.5 Albumin/Globulin Ratio 1.1 Digoxin 05/20/18 08:56 WBC RBC Hgb Hct MCV MCH MCHC RDW Plt Count MPV Neut % (Auto) Lymph % (Auto) [place] % (Auto) Eos % (Auto) Baso % (Auto) Neut # (Auto) Lymph # (Auto) [place] # (Auto) Eos # (Auto) Baso # (Auto) Sodium Potassium Chloride Carbon Dioxide Anion Gap BUN Creatinine Est GFR ( Amer) Est GFR (Non-Af Amer) Random Glucose Calcium Phosphorus Magnesium Total Bilirubin AST ALT Alkaline Phosphatase Troponin I Total Protein Albumin Globulin Albumin/Globulin Ratio Digoxin < 0.4 L Assessment & Plan - Assessment and Plan (Free Text) Assessment: Patient is a 73 yo male w/ PMH Afib, PVD, CHF, CAD, HTN, HLD, COPD, BPH admitted to hospital for shortness of breath. Treated with lasix. Patient off bipap on 04/25 and tolerating nasal cannula well. Acute on Chronic systolic CHF (Non Ischemic CMP s/p AICD) Acute on Chronic systolic CHF CHF management Daily weights strict Is/Os Hx of COPD Pulmonology consulted: Dr. Casiano- recommendations appreciated Duoneb PRN Breo Ellipta once daily Hx of HTN Hydralazine 10mg po bid- held in setting of normotensive bp Zestril 10mg po daily Aldactone 12.5mg po bid Lasix 20mg IVP bid Hx of AFib Coreg 6.125mg po bid D/C Aspirin/Plavix Start Eliquis 2.5 mg po bid. If tolerates well uptitrate it to 5mg po bid Hx of CAD w/ AICD Crestor 10mg po hs Aspirin/Plavix daily PVD See CAD plan Hx of BPH Flomax 0.4mg po daily Renal diet w/ fluid restriction DVT ppx: Heparin 5000 sc q8h GI ppx: Not indicated at this time
[2018-05-21] MEDS: Albuterol-Ipratrop 3 mg / 0.5 (3 ml) UD INH SCH ×5 (03:22→19:41)
[2018-05-21] MEDS ORDERED: Pneumococcal 23-Valent Vaccine IM ONE (10:00)
--- NOTE | 2018-05-21 10:50 | CP.PCM.PN ---
Subjective - Date & Time of Evaluation Date of Evaluation: 05/21/18 Time of Evaluation: 10:47 - Subjective Subjective: Cesilia Jones PGY1 Progress Note for Dr. Gonzalez Patient was examined at bedside this morning. He says his breathing is stable from yesterday. He has no complaints of chest pain, dizziness, nausea, vomiting, diarrhea, dysuria. Objective - Vital Signs/Intake and Output Vital Signs (last 24 hours): Temp Pulse Resp BP Pulse Ox 98 F 97 H 20 127/78 88 L 05/20/18 23:45 05/21/18 04:00 05/21/18 08:07 05/21/18 09:20 05/21/18 03:34 - Medications Medications: Current Medications Albuterol/Ipratropium (Duoneb 3 Mg/0.5 Mg (3 Ml) Ud) 3 ml INH RQ4 [facility] Last Admin: 05/21/18 08:04 Dose: 3 ml Aspirin (Aspirin Chewable) 81 mg PO DAILY [facility] Last Admin: 05/21/18 09:21 Dose: 81 mg Clopidogrel Bisulfate (Plavix) 75 mg PO DAILY [facility] Last Admin: 05/21/18 09:22 Dose: 75 mg Digoxin (Digoxin) 0.125 mg PO DAILY@1800 [facility] Last Admin: 05/20/18 18:16 Dose: 0.125 mg Furosemide (Lasix) 60 mg IVP Q12 [facility] Last Admin: 05/21/18 09:20 Dose: 60 mg Heparin Sodium (Porcine) (Heparin) 5,000 units SC Q8 [facility] Last Admin: 05/21/18 05:48 Dose: 5,000 units Influenza Virus Vaccine (Flucelvax Quad [id number] Syr) 60 mcg IM .ONCE ONE Stop: 05/21/18 11:01 Isosorbide Mononitrate (Imdur) 60 mg PO DAILY [facility] Last Admin: 05/21/18 09:21 Dose: 60 mg Lisinopril (Zestril) 10 mg PO DAILY [facility] Last Admin: 05/21/18 09:21 Dose: 10 mg Metoprolol Tartrate (Lopressor) 12.5 mg PO BID [facility] Last Admin: 05/21/18 09:21 Dose: 12.5 mg Rosuvastatin Calcium (Crestor) 10 mg PO HS [facility] Last Admin: 05/20/18 21:54 Dose: 10 mg Spironolactone (Aldactone) 12.5 mg PO BID [facility] Last Admin: 05/21/18 09:22 Dose: 12.5 mg Tamsulosin HCl (Flomax) 0.4 mg PO DAILY [facility] Last Admin: 05/21/18 09:21 Dose: 0.4 mg Zolpidem Tartrate (Ambien) 5 mg PO HS PRN PRN Reason: sleeplessness Last Admin: 05/20/18 21:54 Dose: 5 mg - Labs Labs: 05/20/18 08:56 05/20/18 08:56 PT 12.4 SECONDS (9.7-12.2) H 05/19/18 19:58 INR 1.1 05/19/18 19:58 APTT 31 SECONDS (21-34) 05/19/18 19:58 - Additional Findings Additional findings: - Constitutional Appears: No Acute Distress, Chronically Ill - Head Exam Head Exam: ATRAUMATIC, NORMOCEPHALIC - Eye Exam Eye Exam: EOMI, Normal appearance Pupil Exam: NORMAL ACCOMODATION - Neck Exam Additional comments: no JVD - Respiratory Exam Respiratory Exam: Clear to Ausculation Bilateral, NORMAL BREATHING PATTERN. absent: Rales, Rhonchi, Wheezes - Cardiovascular Exam Cardiovascular Exam: Irregular Rhythm, +S1, +S2. absent: Gallop, Rubs - GI/Abdominal Exam GI & Abdominal Exam: Soft, Normal Bowel Sounds. absent: Distended, Tenderness - Extremities Exam Extremities Exam: Pedal Edema - Neurological Exam Neurological Exam: Alert, Awake, Oriented x3 - Psychiatric Exam Psychiatric exam: Normal Affect, Normal Mood - Skin Skin Exam: Normal Color Assessment and Plan - Assessment and Plan (Free Text) Assessment: Patient is a 73 yo male with history of CHF, COPD on home O2, CAD, A fib, PVD, HTN, HLD, and BPH who presents with shortness of breath. Admitted for CHF exacerbation with underlying COPD. Plan: Acute exacerbation of systolic congestive heart failure (HFrEF) - s/p AICD/pacemaker - Echo 04/03/18: EF 20-25%, mod dialted LV, mild LVH, global hypokinesis LV, grade I diastolic dysfunction, biatrial enlargement, mild MR, mod TR, mild pulm HTN (42 mmHg), trace pericardial effusion - CXR:dense consolidative opacifications in the mid to lower lung zones. moderated loculated b/l pleural effusions. cardiomegaly. atherosclerotic calcification in aorta. - BiPAP PRN - NC PRN - NRB PRN - Monitor on telemetry - Digoxin 0.125 mg PO daily - Lasix 60 mg IV Q12H - Lisinopril 10 mg PO daily - Metoprolol 12.5 mg PO BID - Spironolactone 12.5 mg PO daily - Cardiology consulted (Tan) - recs appreciated Elevated troponin- suspect due to CHF - Trop 0.15, 0.15, 0.17 - imdur 60mg PO daily - EKG: ventricular paced rhythm - Cardiac cath 12/2017- nonobstructive CAD, nonischemic cardiomyopathy - Cardiology consulted (Tan) - recs appreciated Chronic obstructive pulmonary disease - On home O2 - BiPAP PRN - NC PRN - NRB PRN - Duoneb Q4H [facility] - Pulmonology consulted (Oh) - f/u recs Coronary artery disease - s/p AICD/pacemaker - Cardiac cath 12/2017- nonobstructive CAD, nonischemic cardiomyopathy - ASA 81 mg PO daily - Plavix 75 mg PO daily Paroxysmal atrial fibrillation - s/p AICD/pacemaker - EKG: ventricular paced rhythm - Monitor on telemetry - Digoxin 0.125 mg PO daily Hypertension - Vitals Q6H - Lisinopril 10 mg PO daily - Metoprolol 12.5 mg PO BID - Spironolactone 12.5 mg PO daily - Lasix 40 mg IV Q12H Hyperlipidemia - Crestor 10 mg PO QHS Benign prostatic hypertrophy - Flomax 0.4 mg PO daily Ppx: VTE: SCDs contraindicated due to pedal edema, Heparin 5000 units SC Q8H GI: not indicated HHD Code status: full code Dispo: Likely d/c tomorrow if breathing stable. Patient requiring portable home O2 Case discussed with attending, Dr. Gonzalez.
[2018-05-21] MEDS ORDERED: Influenza Vaccine 60 mcg/0.5 mL SYR (4YR UP) IM ONE (11:00)
--- NOTE | 2018-05-21 16:06 | CP.PCM.CON ---
History of Present Illness - History of Present Illness History of Present Illness: Patient is a 73 male with PMH of COPD, CHF, HTN who presented with complaint of chest pain and shortness of breath of one day duration. Patient has had several hospitalizations recently for CHF exacerbation. Patient seen and examined at bedside in no acute distress. Patient has low oxygen saturation (88%) while on BiPap. Patient states SOB is improving. Patient denied fever, chills, chest pain, nausea, vomiting. PMH: COPD, CHF, HTN, CAD, cardiac arrest 12/2017, A fib Surgical Hx: pacemaker/ AICD, cardiac cath 12/2017, hernia repair Meds: as per EMR Allergies: iodine contrast Social Hx: former smoker Physical Exam Gen: alert and awake, no acute distress Cardio: RRR, no murmur Pulm: decreased breath sounds, no accessory muscle use GI: soft, nontender A&P 1. COPD -Chest x-ray 05/19/18: dense consolidative opacifications somewhat mass-like in appearance in mid to lower lung zones; moderate loculated b/l pleural effusions -Recommend sputum culture -Continue BiPap prn, Duoneb 2. CHF exacerbation -Cardiology consulted -Continue recommended medications Past Patient History - Infectious Disease Hx of Infectious Diseases: None - Tetanus Immunizations Tetanus Immunization: Unknown - Past Medical History & Family History Past Medical History?: Yes - Past Social History Smoking Status: Former Smoker - CARDIAC Hx Atrial Fibrillation: Yes Hx Congestive Heart Failure: Yes Hx Hypertension: Yes Hx Pacemaker: Yes Hx Peripheral Edema: Yes - PULMONARY Hx Chronic Obstructive Pulmonary Disease (COPD): Yes Hx Emphysema: Yes - NEUROLOGICAL Hx Neurological Disorder: No - HEENT Hx HEENT Problems: Yes Other/Comment: Eye glasses - RENAL Hx Chronic Kidney Disease: No - ENDOCRINE/METABOLIC Hx Endocrine Disorders: No - HEMATOLOGICAL/ONCOLOGICAL Hx Human Immunodeficiency Virus (HIV): No - INTEGUMENTARY Hx Dermatological Problems: No - MUSCULOSKELETAL/RHEUMATOLOGICAL Hx Musculoskeletal Disorders: No Hx Falls: No - GASTROINTESTINAL Hx Gastrointestinal Disorders: No - GENITOURINARY/GYNECOLOGICAL Hx Genitourinary Disorders: Yes Hx Prostate Problems: Yes - PSYCHIATRIC Hx Substance Use: No - SURGICAL HISTORY Hx Surgeries: Yes Hx Herniorrhaphy: Yes Other/Comment: Hx Pacemaker insertion - ANESTHESIA Hx Anesthesia: Yes Hx Anesthesia Reactions: No Hx Malignant Hyperthermia: No Meds Allergies/Adverse Reactions: Allergies Allergy/AdvReac Type Severity Reaction Status Date / Time Iodinated Contrast- Oral and AdvReac ANAPHYLAXIS Verified 05/19/18 19:31 IV Dye - Medications Medications: Current Medications Albuterol/Ipratropium (Duoneb 3 Mg/0.5 Mg (3 Ml) Ud) 3 ml INH RQ4 [facility] Last Admin: 05/21/18 13:41 Dose: Not Given Aspirin (Aspirin Chewable) 81 mg PO DAILY [facility] Last Admin: 05/21/18 09:21 Dose: 81 mg Clopidogrel Bisulfate (Plavix) 75 mg PO DAILY [facility] Last Admin: 05/21/18 09:22 Dose: 75 mg Digoxin (Digoxin) 0.125 mg PO DAILY@1800 [facility] Last Admin: 05/20/18 18:16 Dose: 0.125 mg Furosemide (Lasix) 60 mg IVP Q12 [facility] Last Admin: 05/21/18 09:20 Dose: 60 mg Heparin Sodium (Porcine) (Heparin) 5,000 units SC Q8 [facility] Last Admin: 05/21/18 13:33 Dose: 5,000 units Isosorbide Mononitrate (Imdur) 60 mg PO DAILY [facility] Last Admin: 05/21/18 09:21 Dose: 60 mg Lisinopril (Zestril) 10 mg PO DAILY [facility] Last Admin: 05/21/18 09:21 Dose: 10 mg Metoprolol Tartrate (Lopressor) 12.5 mg PO BID [facility] Last Admin: 05/21/18 09:21 Dose: 12.5 mg Rosuvastatin Calcium (Crestor) 10 mg PO HS [facility] Last Admin: 05/20/18 21:54 Dose: 10 mg Spironolactone (Aldactone) 12.5 mg PO BID [facility] Last Admin: 05/21/18 09:22 Dose: 12.5 mg Tamsulosin HCl (Flomax) 0.4 mg PO DAILY [facility] Last Admin: 05/21/18 09:21 Dose: 0.4 mg Zolpidem Tartrate (Ambien) 5 mg PO HS PRN PRN Reason: sleeplessness Last Admin: 05/20/18 21:54 Dose: 5 mg Results - Vital Signs Recent Vital Signs: Last Vital Signs Temp 98 F 05/20/18 23:45 Pulse 97 H 05/21/18 09:00 Resp 20 05/21/18 08:07 BP 127/78 05/21/18 09:20 Pulse Ox 88 L 05/21/18 03:34 - Labs Result Diagrams: 05/20/18 08:56 05/20/18 08:56 Labs: Laboratory Results - last 24 hr 05/21/18 11:12 POC Glucose (mg/dL) 88
[2018-05-21] MEDS: Digoxin 125 mcg (0.125 mg) Tab PO SCH (18:00)
--- NOTE | 2018-05-21 23:56 | CARD ---
APPROVED REPORT Date of service: 05/19/2018 EKG Measurement Heart [id number] <Conclusion> Ventricular-paced rhythm with occasional AV dual-paced complexes Abnormal ECG
[2018-05-22] MEDS: Albuterol-Ipratrop 3 mg / 0.5 (3 ml) UD INH SCH ×7 (00:12→23:50)
--- NOTE | 2018-05-22 07:02 | CP.PCM.PN ---
Subjective - Date & Time of Evaluation Date of Evaluation: 05/21/18 Time of Evaluation: 19:10 - Subjective Subjective: Patient seen and evaluated Comfortable Denies chest pain and dyspnea Physical Exam - Constitutional Appears: Non-toxic, Agitated - Head Exam Head Exam: ATRAUMATIC, NORMAL INSPECTION - Eye Exam Eye Exam: EOMI, Normal appearance - ENT Exam ENT Exam: Mucous Membranes Moist - Neck Exam Neck exam: Positive for: Normal Inspection Additional comments: no JVD - Respiratory Exam Respiratory Exam: Decreased Breath Sounds, Rales. absent: Respiratory Distress Additional comments: on BiPAP - Cardiovascular Exam Cardiovascular Exam: Tachycardia, REGULAR RHYTHM - GI/Abdominal Exam GI & Abdominal Exam: Soft. absent: Tenderness - Extremities Exam Extremities exam: Positive for: pedal edema (2+ b/l ankles), pedal pulses present. Negative for: tenderness - Neurological Exam Neurological exam: Alert, Oriented x3 - Psychiatric Exam Psychiatric exam: Agitated - Skin Skin Exam: Dry, Normal Color, Warm Assessment & Plan - Assessment and Plan (Free Text) Assessment: Patient is a 73 yo male w/ PMH Afib, PVD, CHF, CAD, HTN, HLD, COPD, BPH admitted to hospital for shortness of breath. Treated with lasix. Patient off bipap on 04/25 and tolerating nasal cannula well. Acute on Chronic systolic CHF (Non Ischemic CMP s/p AICD) Acute on Chronic systolic CHF CHF management Daily weights strict Is/Os Hx of COPD Pulmonology consulted: Dr. Casiano- recommendations appreciated Duoneb PRN Breo Ellipta once daily Hx of HTN Hydralazine 10mg po bid- held in setting of normotensive bp Zestril 10mg po daily Aldactone 12.5mg po bid Lasix 20mg IVP bid Hx of AFib Coreg 6.125mg po bid D/C Aspirin/Plavix Start Eliquis 2.5 mg po bid. If tolerates well uptitrate it to 5mg po bid Hx of CAD w/ AICD Crestor 10mg po hs Aspirin/Plavix daily PVD See CAD plan Hx of BPH Flomax 0.4mg po daily Renal diet w/ fluid restriction DVT ppx: Heparin 5000 sc q8h GI ppx: Not indicated at this time Objective - Vital Signs/Intake and Output Vital Signs (last 24 hours): Temp Pulse Resp BP Pulse Ox 97.9 F 84 20 106/66 100 02/19/19 23:15 05/22/18 00:46 05/22/18 00:13 05/21/18 23:15 05/21/18 23:15 Intake and Output: 05/22/18 05/22/18 06:59 18:59 Intake Total 300 Output Total 800 Balance -500 - Medications Medications: Current Medications Albuterol/Ipratropium (Duoneb 3 Mg/0.5 Mg (3 Ml) Ud) 3 ml INH RQ4 [facility] Last Admin: 05/22/18 03:36 Dose: Not Given Apixaban (Eliquis) 2.5 mg PO BID [facility] Digoxin (Digoxin) 0.125 mg PO DAILY@1800 [facility] Last Admin: 05/21/18 18:00 Dose: 0.125 mg Furosemide (Lasix) 60 mg IVP Q12 [facility] Last Admin: 05/21/18 22:22 Dose: 60 mg Isosorbide Mononitrate (Imdur) 60 mg PO DAILY [facility] Last Admin: 05/21/18 09:21 Dose: 60 mg Lisinopril (Zestril) 10 mg PO DAILY [facility] Last Admin: 05/21/18 09:21 Dose: 10 mg Metoprolol Tartrate (Lopressor) 12.5 mg PO BID [facility] Last Admin: 05/21/18 18:01 Dose: 12.5 mg Rosuvastatin Calcium (Crestor) 10 mg PO HS [facility] Last Admin: 05/21/18 22:25 Dose: 10 mg Spironolactone (Aldactone) 12.5 mg PO BID [facility] Last Admin: 05/21/18 18:00 Dose: 12.5 mg Tamsulosin HCl (Flomax) 0.4 mg PO DAILY [facility] Last Admin: 05/21/18 09:21 Dose: 0.4 mg Zolpidem Tartrate (Ambien) 5 mg PO HS PRN PRN Reason: sleeplessness Last Admin: 05/20/18 21:54 Dose: 5 mg - Labs Labs: 05/20/18 08:56 PT 12.4 SECONDS (9.7-12.2) H 05/19/18 19:58 INR 1.1 05/19/18 19:58 APTT 31 SECONDS (21-34) 05/19/18 19:58
--- NOTE | 2018-05-22 15:46 | CP.PCM.PN ---
Subjective - Date & Time of Evaluation Date of Evaluation: 05/22/18 Time of Evaluation: 11:00 - Subjective Subjective: Patient seen and examined at bedside in no acute distress. Patient saturating well, SOB is improving. Patient denied fever, chills, chest pain, nausea, vomiting. Physical Exam Gen: alert and awake, no acute distress Cardio: RRR, no murmur Pulm: decreased breath sounds, no accessory muscle use GI: soft, nontender A&P 1. COPD -Chest x-ray 05/19/18: dense consolidative opacifications somewhat mass-like in appearance in mid to lower lung zones; moderate loculated b/l pleural effusions -Recommend sputum culture -Continue BiPap prn, Duoneb 2. CHF exacerbation -Cardiology consulted -Continue recommended medications Objective - Vital Signs/Intake and Output Vital Signs (last 24 hours): Temp Pulse Resp BP Pulse Ox 97.6 F 74 20 128/82 97 05/22/18 07:20 05/22/18 07:20 05/22/18 11:27 05/22/18 09:38 05/22/18 07:20 Intake and Output: 05/22/18 05/22/18 06:59 18:59 Intake Total 300 Output Total 800 Balance -500 - Medications Medications: Current Medications Albuterol/Ipratropium (Duoneb 3 Mg/0.5 Mg (3 Ml) Ud) 3 ml INH RQ4 [facility] Last Admin: 05/22/18 11:23 Dose: 3 ml Apixaban (Eliquis) 2.5 mg PO BID [facility] Last Admin: 05/22/18 09:37 Dose: 2.5 mg Digoxin (Digoxin) 0.125 mg PO DAILY@1800 [facility] Last Admin: 05/21/18 18:00 Dose: 0.125 mg Furosemide (Lasix) 20 mg IVP Q12 [facility] Last Admin: 05/22/18 09:38 Dose: 20 mg Isosorbide Mononitrate (Imdur) 60 mg PO DAILY [facility] Last Admin: 05/22/18 09:48 Dose: 60 mg Lisinopril (Zestril) 10 mg PO DAILY [facility] Last Admin: 05/22/18 09:38 Dose: 10 mg Metoprolol Tartrate (Lopressor) 12.5 mg PO BID [facility] Last Admin: 05/22/18 09:38 Dose: 12.5 mg Rosuvastatin Calcium (Crestor) 10 mg PO HS [facility] Last Admin: 05/21/18 22:25 Dose: 10 mg Spironolactone (Aldactone) 12.5 mg PO BID [facility] Last Admin: 05/22/18 09:45 Dose: 12.5 mg Tamsulosin HCl (Flomax) 0.4 mg PO DAILY [facility] Last Admin: 05/22/18 09:38 Dose: 0.4 mg Zolpidem Tartrate (Ambien) 5 mg PO HS PRN PRN Reason: sleeplessness Last Admin: 05/20/18 21:54 Dose: 5 mg - Labs Labs: 05/20/18 08:56 05/20/18 08:56 PT 12.4 SECONDS (9.7-12.2) H 05/19/18 19:58 INR 1.1 05/19/18 19:58 APTT 31 SECONDS (21-34) 05/19/18 19:58
[2018-05-22] MEDS: Digoxin 125 mcg (0.125 mg) Tab PO SCH (18:09)
--- NOTE | 2018-05-22 19:12 | CP.PCM.PN ---
Subjective - Date & Time of Evaluation Date of Evaluation: 05/22/18 Time of Evaluation: 19:11 - Subjective Subjective: Still SOB and on supplemental O2. Objective - Vital Signs/Intake and Output Vital Signs (last 24 hours): Temp Pulse Resp BP Pulse Ox 97.6 F 95 H 20 94/58 L 97 05/22/18 07:20 05/22/18 18:58 05/22/18 11:27 05/22/18 18:58 05/22/18 07:20 Intake and Output: 05/22/18 05/23/18 18:59 06:59 Output Total 700 Balance -700 - Medications Medications: Current Medications Albuterol/Ipratropium (Duoneb 3 Mg/0.5 Mg (3 Ml) Ud) 3 ml INH RQ4 [facility] Last Admin: 05/22/18 15:58 Dose: Not Given Apixaban (Eliquis) 2.5 mg PO BID [facility] Last Admin: 05/22/18 18:09 Dose: 2.5 mg Digoxin (Digoxin) 0.125 mg PO DAILY@1800 [facility] Last Admin: 05/22/18 18:09 Dose: 0.125 mg Furosemide (Lasix) 20 mg IVP Q12 [facility] Last Admin: 05/22/18 09:38 Dose: 20 mg Isosorbide Mononitrate (Imdur) 60 mg PO DAILY [facility] Last Admin: 05/22/18 09:48 Dose: 60 mg Lisinopril (Zestril) 10 mg PO DAILY [facility] Last Admin: 05/22/18 09:38 Dose: 10 mg Metoprolol Tartrate (Lopressor) 12.5 mg PO BID [facility] Last Admin: 05/22/18 18:58 Dose: 12.5 mg Rosuvastatin Calcium (Crestor) 10 mg PO HS [facility] Last Admin: 05/21/18 22:25 Dose: 10 mg Spironolactone (Aldactone) 12.5 mg PO BID [facility] Last Admin: 05/22/18 18:58 Dose: 12.5 mg Tamsulosin HCl (Flomax) 0.4 mg PO DAILY [facility] Last Admin: 05/22/18 09:38 Dose: 0.4 mg Zolpidem Tartrate (Ambien) 5 mg PO HS PRN PRN Reason: sleeplessness Last Admin: 05/20/18 21:54 Dose: 5 mg - Labs Labs: 05/20/18 08:56 05/20/18 08:56 PT 12.4 SECONDS (9.7-12.2) H 05/19/18 19:58 INR 1.1 05/19/18 19:58 APTT 31 SECONDS (21-34) 05/19/18 19:58 - Head Exam Head Exam: NORMOCEPHALIC - Neck Exam Neck Exam: Normal Inspection - Respiratory Exam Respiratory Exam: Decreased Breath Sounds - Cardiovascular Exam Cardiovascular Exam: Irregular Rhythm - Extremities Exam Extremities Exam: Normal Inspection - Neurological Exam Neurological Exam: Alert, Oriented x3 Assessment and Plan (1) Congestive heart failure Assessment & Plan: Improved, now able to walk without supplemental O2. Fluid restriction and diuresis. Status: Acute (2) Acute coronary syndrome Assessment & Plan: No new episodes continue current cardiac care. Status: Acute
[2018-05-23] MEDS: Albuterol-Ipratrop 3 mg / 0.5 (3 ml) UD INH SCH ×6 (03:17→23:45)
--- NOTE | 2018-05-23 07:51 | CP.PCM.PN ---
Subjective - Date & Time of Evaluation Date of Evaluation: 05/22/18 Time of Evaluation: 07:51 - Subjective Subjective: Cesilia Jones PGY1 Progress note for Dr. Gonzalez Patient was examined at bedside this morning. He reports slight improvement in his shortness of breath. He says he requires a supplemental O2 tank. He denies chest pain or dizziness. Objective - Vital Signs/Intake and Output Vital Signs (last 24 hours): Temp Pulse Resp BP Pulse Ox 97.9 F 90 20 108/64 96 05/23/18 00:00 05/23/18 04:00 05/23/18 05:07 05/23/18 00:00 05/23/18 00:00 - Medications Medications: Current Medications Albuterol/Ipratropium (Duoneb 3 Mg/0.5 Mg (3 Ml) Ud) 3 ml INH RQ4 [facility] Last Admin: 05/23/18 03:17 Dose: 3 ml Apixaban (Eliquis) 2.5 mg PO BID [facility] Last Admin: 05/22/18 18:09 Dose: 2.5 mg Digoxin (Digoxin) 0.125 mg PO DAILY@1800 [facility] Last Admin: 05/22/18 18:09 Dose: 0.125 mg Furosemide (Lasix) 20 mg IVP Q12 [facility] Last Admin: 05/22/18 21:29 Dose: 20 mg Isosorbide Mononitrate (Imdur) 60 mg PO DAILY [facility] Last Admin: 05/22/18 09:48 Dose: 60 mg Lisinopril (Zestril) 10 mg PO DAILY [facility] Last Admin: 05/22/18 09:38 Dose: 10 mg Metoprolol Tartrate (Lopressor) 12.5 mg PO BID [facility] Last Admin: 05/22/18 18:58 Dose: 12.5 mg Rosuvastatin Calcium (Crestor) 10 mg PO HS [facility] Last Admin: 05/22/18 21:29 Dose: 10 mg Spironolactone (Aldactone) 12.5 mg PO BID [facility] Last Admin: 05/22/18 18:58 Dose: 12.5 mg Tamsulosin HCl (Flomax) 0.4 mg PO DAILY [facility] Last Admin: 05/22/18 09:38 Dose: 0.4 mg Zolpidem Tartrate (Ambien) 5 mg PO HS PRN PRN Reason: sleeplessness Last Admin: 05/22/18 21:29 Dose: 5 mg - Labs Labs: 05/20/18 08:56 05/20/18 08:56 PT 12.4 SECONDS (9.7-12.2) H 05/19/18 19:58 INR 1.1 05/19/18 19:58 APTT 31 SECONDS (21-34) 05/19/18 19:58 - Additional Findings Additional findings: - Constitutional Appears: No Acute Distress, Chronically Ill - Head Exam Head Exam: ATRAUMATIC, NORMOCEPHALIC - Eye Exam Eye Exam: EOMI, Normal appearance Pupil Exam: NORMAL ACCOMODATION - Neck Exam Additional comments: no JVD - Respiratory Exam Respiratory Exam: Clear to Ausculation Bilateral, NORMAL BREATHING PATTERN. absent: Rales, Rhonchi, Wheezes - Cardiovascular Exam Cardiovascular Exam: Irregular Rhythm, +S1, +S2. absent: Gallop, Rubs - GI/Abdominal Exam GI & Abdominal Exam: Soft, Normal Bowel Sounds. absent: Distended, Tenderness - Extremities Exam Extremities Exam: Pedal Edema - Neurological Exam Neurological Exam: Alert, Awake, Oriented x3 - Psychiatric Exam Psychiatric exam: Normal Affect, Normal Mood - Skin Skin Exam: Normal Color Assessment and Plan - Assessment and Plan (Free Text) Assessment: Patient is a 73 yo male with history of CHF, COPD on home O2, CAD, A fib, PVD, HTN, HLD, and BPH who presents with shortness of breath. Admitted for CHF exacerbation with underlying COPD. Plan: Acute exacerbation of systolic congestive heart failure (HFrEF) - s/p AICD/pacemaker - Echo 04/03/18: EF 20-25%, mod dialted LV, mild LVH, global hypokinesis LV, grade I diastolic dysfunction, biatrial enlargement, mild MR, mod TR, mild pulm HTN (42 mmHg), trace pericardial effusion - CXR:dense consolidative opacifications in the mid to lower lung zones. moderated loculated b/l pleural effusions. cardiomegaly. atherosclerotic calcification in aorta. - BiPAP PRN - NC PRN - NRB PRN - Monitor on telemetry - Digoxin 0.125 mg PO daily - Lasix 20 mg IV Q12H - Lisinopril 10 mg PO daily - Metoprolol 12.5 mg PO BID - Spironolactone 12.5 mg PO daily - Cardiology consulted (Tan) - recs appreciated Elevated troponin- suspect due to CHF - Trop 0.15, 0.15, 0.17 - imdur 60mg PO daily - EKG: ventricular paced rhythm - Cardiac cath 12/2017- nonobstructive CAD, nonischemic cardiomyopathy - Cardiology consulted (Tan) - recs appreciated Chronic obstructive pulmonary disease - On home O2 - BiPAP PRN - NC PRN - NRB PRN - Duoneb Q4H [facility] - Pulmonology consulted (Oh) - f/u recs Coronary artery disease - s/p AICD/pacemaker - Cardiac cath 12/2017- nonobstructive CAD, nonischemic cardiomyopathy - ASA 81 mg PO daily - Plavix 75 mg PO daily - Eliquis 2.5mg PO BID Paroxysmal atrial fibrillation - s/p AICD/pacemaker - EKG: ventricular paced rhythm - Monitor on telemetry - Digoxin 0.125 mg PO daily Hypertension - Vitals Q6H - Lisinopril 10 mg PO daily - Metoprolol 12.5 mg PO BID - Spironolactone 12.5 mg PO daily - Lasix 40 mg IV Q12H Hyperlipidemia - Crestor 10 mg PO QHS Benign prostatic hypertrophy - Flomax 0.4 mg PO daily Ppx: VTE: SCDs contraindicated due to pedal edema, Heparin 5000 units SC Q8H GI: not indicated HHD Code status: full code Dispo: Likely d/c tomorrow if breathing stable. Patient requiring portable home O2 Case discussed with attending, Dr. Gonzalez.
[2018-05-23 08:12] LABS: BASO # 0.1 K/uL (0.0-0.2); BASO % 1.1 % (0.0-2.0); EOS # 0.1 K/uL (0.0-0.7); EOS % 2.7 % (0.0-4.0); HEMOGLOBIN 11.2 g/dL (12.0-18.0); LYMPH # 0.9 K/uL (1.0-4.3); LYMPH % 17.8 % (20.0-40.0); MEAN CELL VOLUME 90.2 fL (80.0-94.0); MEAN CORPUSCULAR HEMOGLOBIN 29.2 pg (27.0-31.0); MEAN CORPUSCULAR HGB CONC 32.3 g/dL (33.0-37.0); MEAN PLATELET VOLUME 9.6 fL (7.2-11.7); MONO # 0.8 K/uL (0.0-0.8); MONO % 16.4 % (0.0-10.0); NEUT # 3.1 K/uL (1.8-7.0); RBC 3.83 Mil/uL (4.40-5.90)
[2018-05-23 09:04] LABS: ALB/GLOB RATIO 1.2 (1.0-2.1); ALBUMIN 3.4 g/dL (3.5-5.0); ALT/SGPT 12 U/L (21-72); AST/SGOT 32 U/L (17-59); BLOOD UREA NITROGEN 38 mg/dL (9-20); CALCIUM 8.6 mg/dl (8.6-10.4); GFR NON-AFRICAN AMERICAN > 60
--- NOTE | 2018-05-23 10:59 | CP.PCM.PN ---
Subjective - Date & Time of Evaluation Date of Evaluation: 05/23/18 Time of Evaluation: 10:57 - Subjective Subjective: Cesilia Jones PGY1 Progress Note for Dr. Gonzalez Patient was examined at bedside this morning. He says his breathing is not good. He is concerned about acquiring his home oxygen tank. Objective - Vital Signs/Intake and Output Vital Signs (last 24 hours): Temp Pulse Resp BP Pulse Ox 97.6 F 90 20 123/71 99 05/23/18 07:12 05/23/18 07:12 05/23/18 08:20 05/23/18 10:13 05/23/18 07:12 - Medications Medications: Current Medications Albuterol/Ipratropium (Duoneb 3 Mg/0.5 Mg (3 Ml) Ud) 3 ml INH RQ4 [facility] Last Admin: 05/23/18 07:52 Dose: 3 ml Apixaban (Eliquis) 2.5 mg PO BID [facility] Last Admin: 05/23/18 10:13 Dose: 2.5 mg Digoxin (Digoxin) 0.125 mg PO DAILY@1800 [facility] Last Admin: 05/22/18 18:09 Dose: 0.125 mg Furosemide (Lasix) 20 mg IVP Q12 [facility] Last Admin: 05/23/18 10:13 Dose: 20 mg Isosorbide Mononitrate (Imdur) 60 mg PO DAILY [facility] Last Admin: 05/23/18 10:13 Dose: 60 mg Lisinopril (Zestril) 10 mg PO DAILY [facility] Last Admin: 05/23/18 10:13 Dose: 10 mg Metoprolol Tartrate (Lopressor) 12.5 mg PO BID [facility] Last Admin: 05/23/18 10:13 Dose: 12.5 mg Rosuvastatin Calcium (Crestor) 10 mg PO HS [facility] Last Admin: 05/22/18 21:29 Dose: 10 mg Spironolactone (Aldactone) 12.5 mg PO BID [facility] Last Admin: 05/23/18 10:13 Dose: 12.5 mg Tamsulosin HCl (Flomax) 0.4 mg PO DAILY [facility] Last Admin: 05/23/18 10:13 Dose: 0.4 mg Zolpidem Tartrate (Ambien) 5 mg PO HS PRN PRN Reason: sleeplessness Last Admin: 05/22/18 21:29 Dose: 5 mg - Labs Labs: 05/23/18 07:55 05/23/18 07:55 PT 12.4 SECONDS (9.7-12.2) H 05/19/18 19:58 INR 1.1 05/19/18 19:58 APTT 31 SECONDS (21-34) 05/19/18 19:58 - Additional Findings Additional findings: - Constitutional Appears: No Acute Distress, Chronically Ill - Head Exam Head Exam: ATRAUMATIC, NORMOCEPHALIC - Eye Exam Eye Exam: EOMI, Normal appearance Pupil Exam: NORMAL ACCOMODATION - Neck Exam Additional comments: no JVD - Respiratory Exam Respiratory Exam: Clear to Ausculation Bilateral, NORMAL BREATHING PATTERN. absent: Rales, Rhonchi, Wheezes - Cardiovascular Exam Cardiovascular Exam: Irregular Rhythm, +S1, +S2. absent: Gallop, Rubs - GI/Abdominal Exam GI & Abdominal Exam: Soft, Normal Bowel Sounds. absent: Distended, Tenderness - Extremities Exam Extremities Exam: Pedal Edema - Neurological Exam Neurological Exam: Alert, Awake, Oriented x3 - Psychiatric Exam Psychiatric exam: Normal Affect, Normal Mood - Skin Skin Exam: Normal Color Assessment and Plan - Assessment and Plan (Free Text) Assessment: Patient is a 73 yo male with history of CHF, COPD on home O2, CAD, A fib, PVD, HTN, HLD, and BPH who presents with shortness of breath. Admitted for CHF exacerbation with underlying COPD. Plan: Acute exacerbation of systolic congestive heart failure (HFrEF) - s/p AICD/pacemaker - Echo 04/03/18: EF 20-25%, mod dialted LV, mild LVH, global hypokinesis LV, grade I diastolic dysfunction, biatrial enlargement, mild MR, mod TR, mild pulm HTN (42 mmHg), trace pericardial effusion - CXR:dense consolidative opacifications in the mid to lower lung zones. moderated loculated b/l pleural effusions. cardiomegaly. atherosclerotic calcification in aorta. - BiPAP PRN - NC PRN - NRB PRN - Monitor on telemetry - Digoxin 0.125 mg PO daily - Lasix 20 mg IV Q12H - Lisinopril 10 mg PO daily - Metoprolol 12.5 mg PO BID - Spironolactone 12.5 mg PO daily - Cardiology consulted (Tan) - recs appreciated Elevated troponin- suspect due to CHF - Trop 0.15, 0.15, 0.17 - imdur 60mg PO daily - EKG: ventricular paced rhythm - Cardiac cath 12/2017- nonobstructive CAD, nonischemic cardiomyopathy - Cardiology consulted (Tan) - recs appreciated Chronic obstructive pulmonary disease - On home O2 - BiPAP PRN - NC PRN - NRB PRN - Duoneb Q4H ASPEN - Pulmonology consulted (Oh) - f/u recs Coronary artery disease - s/p AICD/pacemaker - Cardiac cath 12/2017- nonobstructive CAD, nonischemic cardiomyopathy - ASA 81 mg PO daily - Plavix 75 mg PO daily - Eliquis 2.5mg PO BID Paroxysmal atrial fibrillation - s/p AICD/pacemaker - EKG: ventricular paced rhythm - Monitor on telemetry - Digoxin 0.125 mg PO daily Hypertension - Vitals Q6H - Lisinopril 10 mg PO daily - Metoprolol 12.5 mg PO BID - Spironolactone 12.5 mg PO daily - Lasix 40 mg IV Q12H Hyperlipidemia - Crestor 10 mg PO QHS Benign prostatic hypertrophy - Flomax 0.4 mg PO daily Ppx: VTE: SCDs contraindicated due to pedal edema, Heparin 5000 units SC Q8H GI: not indicated HHD Code status: full code Dispo: Medically stable for d/c, however patient not agreeing to go home. Case discussed with attending, Dr. Gonzalez.
--- NOTE | 2018-05-23 14:52 | CP.PCM.PN ---
Subjective - Date & Time of Evaluation Date of Evaluation: 05/23/18 Time of Evaluation: 14:50 - Subjective Subjective: Feeling better but still needs O2 time to time. Objective - Vital Signs/Intake and Output Vital Signs (last 24 hours): Temp Pulse Resp BP Pulse Ox 97.6 F 90 20 123/71 99 05/23/18 07:12 05/23/18 07:12 05/23/18 11:31 05/23/18 10:13 05/23/18 07:12 - Medications Medications: Current Medications Albuterol/Ipratropium (Duoneb 3 Mg/0.5 Mg (3 Ml) Ud) 3 ml INH RQ4 [facility] Last Admin: 05/23/18 11:30 Dose: 3 ml Apixaban (Eliquis) 2.5 mg PO BID [facility] Last Admin: 05/23/18 10:13 Dose: 2.5 mg Digoxin (Digoxin) 0.125 mg PO DAILY@1800 [facility] Last Admin: 05/22/18 18:09 Dose: 0.125 mg Furosemide (Lasix) 20 mg IVP Q12 [facility] Last Admin: 05/23/18 10:13 Dose: 20 mg Isosorbide Mononitrate (Imdur) 60 mg PO DAILY [facility] Last Admin: 05/23/18 10:13 Dose: 60 mg Lisinopril (Zestril) 10 mg PO DAILY [facility] Last Admin: 05/23/18 10:13 Dose: 10 mg Metoprolol Tartrate (Lopressor) 12.5 mg PO BID [facility] Last Admin: 05/23/18 10:13 Dose: 12.5 mg Rosuvastatin Calcium (Crestor) 10 mg PO HS [facility] Last Admin: 05/22/18 21:29 Dose: 10 mg Spironolactone (Aldactone) 12.5 mg PO BID [facility] Last Admin: 05/23/18 10:13 Dose: 12.5 mg Tamsulosin HCl (Flomax) 0.4 mg PO DAILY [facility] Last Admin: 05/23/18 10:13 Dose: 0.4 mg Zolpidem Tartrate (Ambien) 5 mg PO HS PRN PRN Reason: sleeplessness Last Admin: 05/22/18 21:29 Dose: 5 mg - Labs Labs: 05/23/18 07:55 05/23/18 07:55 PT 12.4 SECONDS (9.7-12.2) H 05/19/18 19:58 INR 1.1 05/19/18 19:58 APTT 31 SECONDS (21-34) 05/19/18 19:58 - Neck Exam Neck Exam: Normal Inspection - Respiratory Exam Respiratory Exam: Decreased Breath Sounds - Cardiovascular Exam Cardiovascular Exam: REGULAR RHYTHM - Extremities Exam Extremities Exam: Normal Inspection - Neurological Exam Neurological Exam: Alert, Oriented x3 Assessment and Plan (1) Congestive heart failure Assessment & Plan: Improving, continue diuresis. Status: Acute (2) Acute coronary syndrome Assessment & Plan: DAPT and possibel further cardiac work-up when CHF is improved. Status: Acute
[2018-05-23 17:34] VITALS: PULSE 91
[2018-05-23] MEDS: Digoxin 125 mcg (0.125 mg) Tab PO SCH (17:34)
[2018-05-24 02:02] VITALS: RESP 20
[2018-05-24] MEDS: Albuterol-Ipratrop 3 mg / 0.5 (3 ml) UD INH SCH ×4 (03:26→16:26)
--- NOTE | 2018-05-24 14:44 | CP.PCM.DIS ---
Provider - Provider Date of Admission: 05/19/18 20:56 Attending physician: Warren Gonzalez Jr, MD Consults: 05/19/18 21:54 Cardiology Consult Stat Comment: Consulting Provider: Corey Maddox Consulting Physician: Corey Maddox Reason for Consult: CHF exacerbation, elev trop Pulmonology Consult Stat Comment: Consulting Provider: Atif Casiano Consulting Physician: Atif Casiano Reason for Consult: copd, on bipap 05/22/18 06:39 Cardiology Consult Routine Comment: Please notify Dr. Pagan Consulting Provider: Leonardo Pagan Consulting Physician: Leonardo Pagan Reason for Consult: Cardiology coverage. I am out of town till May 31 Time Spent in preparation of Discharge (in minutes): 70 Diagnosis - Discharge Diagnosis (1) Heart failure with reduced ejection fraction Status: Chronic Priority: High Hospital Course - Lab Results Lab Results: Most Recent Lab Values WBC 5.0 K/uL (4.8-10.8) 05/23/18 07:55 RBC 3.83 Mil/uL (4.40-5.90) L 05/23/18 07:55 Hgb 11.2 g/dL (12.0-18.0) L 05/23/18 07:55 Hct 34.6 % (35.0-51.0) L 05/23/18 07:55 MCV 90.2 fL (80.0-94.0) 05/23/18 07:55 MCH 29.2 pg (27.0-31.0) 05/23/18 07:55 MCHC 32.3 g/dL (33.0-37.0) L 05/23/18 07:55 RDW 15.0 % (11.5-14.5) H 05/23/18 07:55 Plt Count 221 K/uL (130-400) 05/23/18 07:55 MPV 9.6 fL (7.2-11.7) 05/23/18 07:55 Neut % (Auto) 62.0 % (50.0-75.0) 05/23/18 07:55 Lymph % (Auto) 17.8 % (20.0-40.0) L 05/23/18 07:55 Hendricks % (Auto) 16.4 % (0.0-10.0) H 05/23/18 07:55 Eos % (Auto) 2.7 % (0.0-4.0) 05/23/18 07:55 Baso % (Auto) 1.1 % (0.0-2.0) 05/23/18 07:55 Neut # (Auto) 3.1 K/uL (1.8-7.0) 05/23/18 07:55 Lymph # (Auto) 0.9 K/uL (1.0-4.3) L 05/23/18 07:55 Hendricks # (Auto) 0.8 K/uL (0.0-0.8) 05/23/18 07:55 Eos # (Auto) 0.1 K/uL (0.0-0.7) 05/23/18 07:55 Baso # (Auto) 0.1 K/uL (0.0-0.2) 05/23/18 07:55 PT 12.4 SECONDS (9.7-12.2) H 05/19/18 19:58 INR 1.1 05/19/18 19:58 APTT 31 SECONDS (21-34) 05/19/18 19:58 Puncture Site Rra 05/19/18 20:15 pCO2 55 mm/Hg (35-45) H 05/19/18 20:15 pO2 203 mm/Hg (80-100) H 05/19/18 20:15 HCO3 29.7 mmol/L (21-28) H 05/19/18 20:15 ABG pH 7.38 (7.35-7.45) 05/19/18 20:15 ABG Total CO2 34.2 mmol/L (22-28) H 05/19/18 20:15 ABG O2 Saturation 100.2 % (95-98) H 05/19/18 20:15 ABG Base Excess 6.1 mmol/L (-2.0-3.0) H 05/19/18 20:15 ABG Hemoglobin 11.1 g/dL (11.7-17.4) L 05/19/18 20:15 ABG Carboxyhemoglobin 2.6 % (0.5-1.5) H 05/19/18 20:15 POC ABG HHb (Measured) -0.2 % (0.0-5.0) L 05/19/18 20:15 ABG Methemoglobin 0.8 % (0.0-3.0) 05/19/18 20:15 Maicol Test Pos 05/19/18 20:15 A-a O2 Difference 441.0 mm/Hg 05/19/18 20:15 Respiratory Index 2.2 05/19/18 20:15 Hgb O2 Saturation 96.8 % (95.0-98.0) 05/19/18 20:15 FiO2 100.0 % 05/19/18 20:15 Sodium 138 mmol/L (132-148) 05/23/18 07:55 Potassium 4.7 mmol/L (3.6-5.2) 05/23/18 07:55 Chloride 95 mmol/L (98-107) L 05/23/18 07:55 Carbon Dioxide 41 mmol/L (22-30) H* D 05/23/18 07:55 Anion Gap 6 (10-20) L 05/23/18 07:55 BUN 38 mg/dL (9-20) H 05/23/18 07:55 Creatinine 1.0 mg/dL (0.8-1.5) 05/23/18 07:55 Est GFR ( Amer) > 60 05/23/18 07:55 Est GFR (Non-Af Amer) > 60 05/23/18 07:55 POC Glucose (mg/dL) 101 mg/dL (65-110) 05/22/18 21:05 Random Glucose 89 mg/dL (75-110) D 05/23/18 07:55 Calcium 8.6 mg/dl (8.6-10.4) 05/23/18 07:55 Phosphorus 3.4 mg/dL (2.5-4.5) 05/23/18 07:55 Magnesium 2.1 mg/dL (1.6-2.3) 05/23/18 07:55 Total Bilirubin 0.4 mg/dL (0.2-1.3) 05/23/18 07:55 AST 32 U/L (17-59) 05/23/18 07:55 ALT 12 U/L (21-72) L 05/23/18 07:55 Alkaline Phosphatase 64 U/L (38-126) 05/23/18 07:55 Troponin I 0.1760 ng/mL (0.00-0.120) H* 05/20/18 08:56 NT-Pro-B Natriuret Pep 74225 pg/mL (0-900) H 05/19/18 19:58 Total Protein 6.3 g/dL (6.3-8.3) 05/23/18 07:55 Albumin 3.4 g/dL (3.5-5.0) L 05/23/18 07:55 Globulin 2.9 gm/dL (2.2-3.9) 05/23/18 07:55 Albumin/Globulin Ratio 1.2 (1.0-2.1) 05/23/18 07:55 Digoxin < 0.4 ng/mL (0.8-2.0) L 05/20/18 08:56 - Hospital Course Hospital Course: Upon Admission: Patient is a 73yomale with history of CHF, COPD on home O2, CAD, A fib, PVD, HTN, HLD, and BPH who presents with shortness of breath. Patient is on BiPAP and uncooperative during exam. Patient says that severe SOB and chest pressure started today. He has a history of noncompliance but states that he has been taking all of his medications as prescribed. He refuses to answer further questions and asks to be left alone. Per ED, patient desaturated to 88% with respiratory distress on NC. He was placed on nonrebreather and given Lasix IV 40 mg. He was saturating at 100% but still with accessory muscle use. He was then placed on BiPAP and is breathing comfortably. Of note, patient has had several recent hospitalizations with similar presentations, and he was treated for CHF exacerbations. Patient was admitted to [facility] for CHF Exacerbation Hospital Stay: Patient was given duonebs, nonrebreather, and high flow oxygen throughout his stay. He was diuresed with Lasix 60mg IV q12h that was decreased to 20mg IV q12h. He was continued on his home medications. CXR showed dense consolidative opacifications in the mid to lower lung zones. moderated loculated b/l pleural effusions. cardiomegaly. atherosclerotic calcification in aorta. Cardiology was consulted and recommended adding eliquis 2.5mg PO BID. Pulmonology was consulted and recommended continuation of breathing treatments and sputum culture. Patients breathing improved over the course of his stay. He was deemed stable for discharge wit home O2. Upon Discharge: Patient was deemed stable for discharge to home. He was given prescriptions and instructed to follow up with Dr. Gonzalez within a week. Patient understood instructions and agreed. Discharge Exam - Head Exam Head Exam: ATRAUMATIC, NORMOCEPHALIC - Eye Exam Eye Exam: EOMI, Normal appearance Pupil Exam: NORMAL ACCOMODATION - ENT Exam ENT Exam: Mucous Membranes Moist - Respiratory Exam Respiratory Exam: Decreased Breath Sounds, NORMAL BREATHING PATTERN. absent: Rales, Rhonchi, Wheezes - Cardiovascular Exam Cardiovascular Exam: REGULAR RHYTHM, +S1, +S2. absent: Gallop, Rubs, Systolic Murmur - GI/Abdominal Exam GI & Abdominal Exam: Normal Bowel Sounds, Soft. absent: Distended, Tenderness - Extremities Exam Extremities exam: pedal edema - Neurological Exam Neurological exam: Alert, Altered, Oriented x3 - Psychiatric Exam Psychiatric exam: Normal Affect, Normal Mood - Skin Skin Exam: Normal Color Discharge Plan - Discharge Medications Prescriptions: Apixaban [Eliquis] 2.5 mg PO BID #60 tab Aspirin [Aspirin Chewable] 81 mg PO DAILY #30 chew Atorvastatin [Lipitor] 20 mg PO DAILY #30 tab Clopidogrel [Plavix] 75 mg PO DAILY #30 tab Digoxin 1 tab PO DAILY #30 tab Fluticasone/Umeclidin/Vilanter [Trelegy Ellipta 100-62.5-25] 1 each IH DAILY 30 Days #1 blst.w.dev Furosemide [Lasix] 20 mg PO BID #60 tablet Isosorbide Mononitrate [Imdur] 60 mg PO DAILY 30 Days tab Lisinopril [Zestril] 10 mg PO DAILY #30 tab Metoprolol Tartrate [Lopressor] 1 tab PO BID #60 tab Spironolactone [Aldactone] 12.5 mg PO BID #60 tab Tamsulosin [Flomax] 0.4 mg PO DAILY #30 cap Zolpidem [Ambien] 5 mg PO HS PRN #30 tab PRN Reason: sleeplessness - Follow Up Plan Condition: FAIR Disposition: HOME/ ROUTINE Instructions: Heart Failure (DC), Heart Failure (GEN), Pacemaker (DC), Pacemaker (GEN), Pulmonary Edema (DC), Pulmonary Edema (GEN), Ascites (DC), Ascites (GEN) Additional Instructions: Please follow up with Dr. Gonzalez within 1 week. Call to make an appointment. Please take your medication as prescribed. You will be having a visiting nurse come to your house for care. If symptoms worsen, please return to the emergency department. Take care and be well.
[2018-05-24 16:41] VITALS: BP 105/61; PULSE 82; TEMP 97.6; O2SAT 99
[2018-05-24] MEDS: Digoxin 125 mcg (0.125 mg) Tab PO SCH (20:42)
--- NOTE | 2018-05-25 10:24 | PCM.HF ---
Heart Failure Core Measure - Heart Failure Ejection Fraction: Less Than 40 % DIDIER Inhibitor Prescribed: Yes Beta-Harley Prescribed: Metoprolol Succinate Angiotensin II Receptor Harley Prescribed: No Contraindication/Reason for not providing: on didier AnticoagulationTherapy for Atrial Fibrillation/Atrialflutter: Yes Aldosterone Antagonist Prescribed: Yes Hydralazine Nitrate Prescribed: No Contraindication/Reason for not providing: on imdur Implantable Cardioverter Defibrillator Therapy: No Contraindication/Reason for not providing: pt has pacemake r Cardiac Resynchronization Therapy Prescribed: No Contraindication/Reason for not providing: pt has pacemake r - Follow up Will be discharged to: Home Follow Up Date (must be within 7 days from discharge): 05/29/18 Follow Up Time: 09:00
== END 2018-05-24 19:01 | disposition home or self-care (01) | DRG 292 ==
LOC: C.ER 19:07 → C.9E 20:56 → C.6T 05-20 00:12
PROVIDERS: ADMIT Internal Medicine; ATTEND Internal Medicine
PROC: 5A09357 Assistance with Respiratory Ventilation, Less than 24 Consecutive Hours, Continuous Positive Airway Pressure (ICD-10-PCS; principal; 2018-05-19)
DX: I11.0 Hypertensive heart disease with heart failure (principal); I50.23 Acute on chronic systolic (congestive) heart failure; I24.9 Acute ischemic heart disease, unspecified; I42.9 Cardiomyopathy, unspecified; I25.10 Atherosclerotic heart disease of native coronary artery without angina pectoris; R79.89 Other specified abnormal findings of blood chemistry; I73.9 Peripheral vascular disease, unspecified; J43.9 Emphysema, unspecified; I70.0 Atherosclerosis of aorta; I48.91 Unspecified atrial fibrillation; E78.5 Hyperlipidemia, unspecified; N40.0 Benign prostatic hyperplasia without lower urinary tract symptoms; Z91.19 Patient's noncompliance with other medical treatment and regimen; Z99.81 Dependence on supplemental oxygen; Z95.810 Presence of automatic (implantable) cardiac defibrillator; Z87.891 Personal history of nicotine dependence; Z86.74 Personal history of sudden cardiac arrest; Z79.899 Other long term (current) drug therapy

== ENCOUNTER 2018-06-12 14:33 | Inpatient (IN) | payer MEDICARE ==
[2018-06-12 14:33] VITALS: PULSE 91
[2018-06-12 14:43] VITALS: BMI 29.5
[2018-06-12] MEDS ORDERED: Albuterol 0.083% Inhal Sol (2.5 mg/3 mL) UD ONE (14:51)
--- NOTE | 2018-06-12 14:56 | C.PDOC ---
History Of Present Illness 73 y/o male with a PMHx of HLD, HTN, CAD, CHF, COPD (on home O2), A Fib, and s/p pacemaker, brought in by ambulance for evaluation of chest pain that began just [facility]. Patient has had multiple recent admissions for exacerbation of CHF and COPD. Of note patient is normally on home O2, and states he went out shopping today. Shortly after he got home, patient felt a twinge in his chest, and then his defibrillator shocked him three times. Since then patient has had pain around the pacemaker site, associated with SOB. Patient also notes his legs have been somewhat swollen. Otherwise patient denies any fevers, nausea, vomiting, or other complaints. Time Seen by Provider: 06/12/18 14:45 Chief Complaint (Nursing): Chest Pain History Per: Patient History/Exam Limitations: no limitations Onset/Duration Of Symptoms: Mins Current Symptoms Are (Timing): Still Present Associated Symptoms: Dyspnea Past Medical History Reviewed: Historical Data, Nursing Documentation, Vital Signs Vital Signs: Last Vital Signs Temp 98.4 F 06/12/18 14:47 Pulse 98 H 06/12/18 14:42 Resp 16 06/12/18 14:42 BP 144/97 H 06/12/18 14:42 Pulse Ox 96 06/12/18 14:42 - Medical History PMH: Atrial Fibrillation, Benign Prostatic Hyperplasia, CAD, CHF, COPD, Emphysema, HTN, Hyperlipidemia, Peripheral Edema Denies: HIV, Chronic Kidney Disease Surgical History: Hernia Repair, Pacemaker - [facility] Procedures ASSISTANCE WITH RESPIRATORY VENTILATION, 24-96 HRS, CPAP (05/19/18) ASSISTANCE WITH RESPIRATORY VENTILATION, <24 HRS, CPAP (03/03/18) FLUOROSCOPY OF LEFT HEART USING LOW OSMOLAR CONTRAST (12/08/17) FLUOROSCOPY OF MULT COR ART USING L OSM CONTRAST (12/08/17) INSERTION OF ENDOTRACHEAL AIRWAY INTO TRACHEA, VIA OPENING (12/08/17) MEASURE OF CARDIAC SAMPL & PRESSURE, L HEART, PERC APPROACH (12/08/17) RESPIRATORY VENTILATION, GREATER THAN 96 CONSECUTIVE HOURS (12/08/17) Family History: States: Unknown Family Hx - Social History Hx Alcohol Use: No Hx Substance Use: Yes - Immunization History Hx Tetanus Toxoid Vaccination: No Hx Influenza Vaccination: No Hx Pneumococcal Vaccination: No Review Of Systems Except As Marked, All Systems Reviewed And Found Negative. Constitutional: Negative for: Fever Cardiovascular: Positive for: Chest Pain (at pacemaker site) Respiratory: Positive for: Shortness of Breath. Negative for: Cough Gastrointestinal: Negative for: Nausea, Vomiting, Diarrhea Musculoskeletal: Negative for: Back Pain Skin: Negative for: Rash Neurological: Negative for: Headache, Dizziness Physical Exam - Physical Exam Appears: Non-toxic, No Acute Distress Skin: Normal Color, Diaphoretic (and Cool to touch) Head: Atraumatic, Normacephalic Eye(s): bilateral: Normal Inspection, PERRL, EOMI Oral Mucosa: Moist Neck: Normal ROM Chest: Other (Pacemaker noted) Cardiovascular: Rhythm Regular, No Murmur, Other (Normal S1,S2) Respiratory: No Decreased Breath Sounds, No Rhonchi, No Wheezing, Other (Tachyp neic, visibly mouth-breathing) Gastrointestinal/Abdominal: Soft, No Tenderness, No Distention Extremity: Normal ROM, No Calf Tenderness, No Deformity, Swelling (Mild non- pitting edema bilaterally) Pulses: Left Dorsalis Pedis: Normal, Right Dorsalis Pedis: Normal Neurological/Psych: Oriented x3, Normal Motor, Normal Sensation ED Course And Treatment - Laboratory Results Result Diagrams: 06/12/18 14:53 06/12/18 14:53 Lab Interpretation: Abnormal (BNP 6130, CPK 199, MB 3.7) ECG: Interpreted By Ut ECG Rhythm: AV Paced (with multiple PVCs) ECG Interpretation: Abnormal O2 Sat by Pulse Oximetry: 96 (RA) Pulse Ox Interpretation: Normal - Radiology CXR: Interpreted by Ut CXR Interpretation: Yes: No Acute Disease Progress Note: Labs, EKG, CXR ordered and reviewed. - Physician Consult Information Time Consulting Physician Contacted: 15:31 Physician Contacted: Warren Gonzalez Jr. Outcome Of Conversation: Accepts patient for admission, resident already at bedside evaluating patient Disposition - Disposition Disposition: HOSPITALIZED Disposition Time: 16:10 Condition: STABLE - POA Present On Arrival: None - Clinical Impression Clinical Impression: Defibrillator discharge, CHF (congestive heart failure) - Scribe Statement The provider has reviewed the documentation as recorded by the Jovan Mcpherson Provider Attestation: All medical record entries made by the Felisaibe were at my direction and personally dictated by me. I have reviewed the chart and agree that the record accurately reflects my personal performance of the history, physical exam, medical decision making, and the department course for this patient. I have also personally directed, reviewed, and agree with the discharge instructions and disposition. Decision To Admit - Pt Status Changed To: Hospital Disposition Of: Inpatient - Admit Certification Admit to Inpatient:: After my assessment, the patient will require hospitalization for at least two midnights. This is because of the severity of symptoms shown, intensity of services needed, and/or the medical risk in this patient being treated as an outpatient. - InPatient: Physician Admission Certification: I certify that this patient requires 2 or more midnights of care for the following reason:: CHF, Cardiac arrhythmia possible V-tach, Defibrillator discharge - . Bed Request Type: Telemetry Admitting Physician: Warren Gonzalez Jr. Patient Diagnosis: Defibrillator discharge, CHF (congestive heart failure)
[2018-06-12 14:59] LABS: BASO # 0.1 K/uL (0.0-0.2); BASO % 0.9 % (0.0-2.0); EOS # 0.1 K/uL (0.0-0.7); EOS % 0.9 % (0.0-4.0); HEMOGLOBIN 11.8 g/dL (12.0-18.0); LYMPH # 1.2 K/uL (1.0-4.3); LYMPH % 15.2 % (20.0-40.0); MEAN CELL VOLUME 89.5 fL (80.0-94.0); MEAN CORPUSCULAR HEMOGLOBIN 28.6 pg (27.0-31.0); MEAN PLATELET VOLUME 9.6 fL (7.2-11.7); MONO # 0.8 K/uL (0.0-0.8); MONO % 10.6 % (0.0-10.0); NEUT # 5.6 K/uL (1.8-7.0); NEUT % 72.4 % (50.0-75.0); RBC 4.11 Mil/uL (4.40-5.90); RED CELL DISTRIBUTION WIDTH 15.8 % (11.5-14.5); WHITE BLOOD COUNT 7.8 K/uL (4.8-10.8)
[2018-06-12 15:07] LABS: PROTHROMBIN TIME 11.2 SECONDS (9.7-12.2)
[2018-06-12 15:12] LABS: ALB/GLOB RATIO 1.2 (1.0-2.1); ALBUMIN 3.6 g/dL (3.5-5.0); ALT/SGPT 18 U/L (21-72); AST/SGOT 29 U/L (17-59); BLOOD UREA NITROGEN 17 mg/dL (9-20); CALCIUM 8.9 mg/dl (8.6-10.4); GFR NON-AFRICAN AMERICAN > 60
[2018-06-12 15:22] LABS: B-TYPE NATRIURETIC PEPTIDE 6130 pg/mL (0-900)
--- NOTE | 2018-06-12 15:23 | CP.PCM.HP ---
History of Present Illness - History of Present Illness History of Present Illness: DR [facility] 73M with a pmhx pof CHF, COPD on home O2, CAD, cardiac arrest 12/2017, A fib, PVD, HTN, HLD, BPH presents to the ED after his AICD went off 3x today while at home. Pt says he walked to the store this morning, got very SOB, then when he got home felt some minor chest pain. while at home walking in his house it went off and caused him distress and to call the ambulance. Pt has a longstanding cardiac hx, and says hes been SOB on exertion for 3 years. Pt denies any nauseau, vomiting, syncope, headaches, fevers, chills. of note, pt was last hospitalized in may 21 for a CHF exacerbation. PMH: CHF, COPD on home O2, CAD, cardiac arrest 12/2017, A fib, PVD, HTN, HLD, BPH PSH: hernia repair, pacemaker/AICD, cardiac cath 12/2017 (nonobstructive CAD, nonischemic cardiomyopathy) Meds: ASA 81 mg PO daily, Plavix 75 mg PO daily, Digoxin 0.125 mg PO daily, Lasix 40 mg PO daily, Lisinopril 10 mg PO daily, Metoprolol 12.5 mg PO BID, Spironolactone 12.5 mg PO daily, Flomax 0.4 mg PO daily, Lipitor 20 mg PO QHS, Trelegy Ellipta inhaler, Ambien 5 mg PO QHS PRN All: Iodine contrast- hypotension-->code blue FH: unknown SH: former alcohol use, former smoker, denies illicit drug use PMD: Carlos Cardio: Tan Pulm: Oh Present on Admission - Present on Admission Any Indicators Present on Admission: No Past Patient History - Infectious Disease Hx of Infectious Diseases: None - Tetanus Immunizations Tetanus Immunization: Unknown - Past Medical History & Family History Past Medical History?: Yes - Past Social History Smoking Status: Former Smoker - CARDIAC Hx Atrial Fibrillation: Yes Hx Congestive Heart Failure: Yes Hx Hypertension: Yes Hx Pacemaker: Yes Hx Peripheral Edema: Yes - PULMONARY Hx Chronic Obstructive Pulmonary Disease (COPD): Yes Hx Emphysema: Yes - NEUROLOGICAL Hx Neurological Disorder: No - HEENT Hx HEENT Problems: Yes Other/Comment: Eye glasses - RENAL Hx Chronic Kidney Disease: No - ENDOCRINE/METABOLIC Hx Endocrine Disorders: No - HEMATOLOGICAL/ONCOLOGICAL Hx Human Immunodeficiency Virus (HIV): No - INTEGUMENTARY Hx Dermatological Problems: No - MUSCULOSKELETAL/RHEUMATOLOGICAL Hx Musculoskeletal Disorders: No Hx Falls: No - GASTROINTESTINAL Hx Gastrointestinal Disorders: No - GENITOURINARY/GYNECOLOGICAL Hx Genitourinary Disorders: Yes Hx Prostate Problems: Yes - PSYCHIATRIC Hx Substance Use: Yes - SURGICAL HISTORY Hx Surgeries: Yes Hx Herniorrhaphy: Yes Other/Comment: Hx Pacemaker insertion - ANESTHESIA Hx Anesthesia: Yes Hx Anesthesia Reactions: No Hx Malignant Hyperthermia: No Meds Home Medications: Home Medication List Medication Instructions Recorded Confirmed Type Amiodarone Hydrochloride 100 mg PO Q12 #60 tab 06/14/18 Rx [Cordarone] Metoprolol Tartrate [Lopressor] 50 mg PO Q12 #60 tab 06/14/18 Rx Allergies/Adverse Reactions: Allergies Allergy/AdvReac Type Severity Reaction Status Date / Time Iodinated Contrast- Oral and AdvReac ANAPHYLAXIS Verified 06/12/18 14:37 IV Dye Results - Vital Signs Recent Vital Signs: Last Vital Signs Temp 98.4 F 06/12/18 14:47 Pulse 98 H 06/12/18 14:42 Resp 16 06/12/18 14:42 BP 144/97 H 06/12/18 14:42 Pulse Ox 96 06/12/18 15:13 - Labs Result Diagrams: 06/16/18 10:58 06/16/18 10:58 Labs: Laboratory Results - last 24 hr 06/12/18 06/12/18 06/12/18 14:53 14:53 14:53 WBC 7.8 D RBC 4.11 L Hgb 11.8 L Hct 36.8 MCV 89.5 MCH 28.6 MCHC 32.0 L RDW 15.8 H Plt Count 241 MPV 9.6 Neut % (Auto) 72.4 Lymph % (Auto) 15.2 L [place] % (Auto) 10.6 H Eos % (Auto) 0.9 Baso % (Auto) 0.9 Neut # (Auto) 5.6 Lymph # (Auto) 1.2 [place] # (Auto) 0.8 Eos # (Auto) 0.1 Baso # (Auto) 0.1 PT 11.2 INR 1.0 APTT 27 Sodium 140 Potassium 3.8 Chloride 104 Carbon Dioxide 29 Anion Gap 11 BUN 17 Creatinine 0.7 L Est GFR ( Amer) > 60 Est GFR (Non-Af Amer) > 60 Random Glucose 121 H D Calcium 8.9 Total Bilirubin 0.3 AST 29 ALT 18 L D Alkaline Phosphatase 66 Total Creatine Kinase 199 H Total Protein 6.6 Albumin 3.6 Globulin 3.0 Albumin/Globulin Ratio 1.2 Assessment & Plan - Assessment and Plan (Free Text) Assessment: Patient is a 73 yo male with history of CHF, COPD on home O2, CAD, A fib, PVD, HTN, HLD, and BPH who presents with shortness of breath. Admitted for CHF exacerbation, AICD going off 3x at home. Plan: Acute exacerbation of systolic congestive heart failure (HFrEF) - Admit to Tele - AICD/pacemaker - Echo 04/03/18: EF 20-25%, mod dialted LV, mild LVH, global hypokinesis LV, grade I diastolic dysfunction, biatrial enlargement, mild MR, mod TR, mild pulm HTN (42 mmHg), trace pericardial effusion - CXR:dense consolidative opacifications in the mid to lower lung zones. moderated loculated b/l pleural effusions. cardiomegaly. atherosclerotic calcification in aorta. - BiPAP PRN - NC PRN - NRB PRN - Digoxin 0.125 mg PO daily - Lasix 40 mg IV Q12H - Lisinopril 10 mg PO daily - Metoprolol 12.5 mg PO BID - Spironolactone 12.5 mg PO daily - Cardiology consulted (Tan) - f/u recs Elevated Cardiac Enzymes- suspect due to CHF - Trop 0.117, CKMB 3.7 - imdur 60mg PO daily - EKG: ventricular paced rhythm - Cardiac cath 12/2017- nonobstructive CAD, nonischemic cardiomyopathy - Cardiology consulted (Tan) - recs appreciated Chronic obstructive pulmonary disease - On home O2 - BiPAP PRN - NC PRN - NRB PRN - Duoneb Q4H [facility] Coronary artery disease - s/p AICD/pacemaker - Cardiac cath 12/2017- nonobstructive CAD, nonischemic cardiomyopathy - ASA 81 mg PO daily - Plavix 75 mg PO daily - Eliquis 2.5mg PO BID Paroxysmal atrial fibrillation - s/p AICD/pacemaker - EKG: ventricular paced rhythm - Monitor on telemetry - Digoxin 0.125 mg PO daily Hypertension - Vitals Q6H - Lisinopril 10 mg PO daily - Metoprolol 12.5 mg PO BID - Spironolactone 12.5 mg PO daily - Lasix 40 mg IV Q12H Hyperlipidemia - Crestor 10 mg PO QHS Benign prostatic hypertrophy - Flomax 0.4 mg PO daily Ppx: VTE: SCDs contraindicated due to pedal edema, Heparin 5000 units SC Q8H GI: not indicated HHD
[2018-06-12] MEDS ORDERED: Heparin25000 units/250ml 1/2NS 25,000 UNITS/250 ML BAG IV PRN (18:00)
--- NOTE | 2018-06-12 20:39 | CP.PCM.CON ---
History of Present Illness - History of Present Illness History of Present Illness: Cardiac-Electrophysiology Consult Re: ICD discharge Chart and imaging reviewed Patient seen examined 73 year old male admitted with history of ICD shock Denied dyspnea palpitations syncope diaphoresis No suggestion of electro-magnetic interference (DAYAN) Past medical Systemic hypertension Diabetes Mellitus Cardiomyopathy ICD implant COPD Home oxygen Atrial fibrillation Past surgery: ICD discharge Allergies: None Medications: Noted Exam Afebrile No distress Normal venous pressures Clear Lungs ?PMI Normal heart sounds No edema EKG: sinus; AV sequentially paced; frequent polymorphic PVC Labs: Ca/Mg/K; 8.9/1.8/3.8 Troponin: 0.11 CXR: single lead ICD Assessment and Plan: Mr. Caballero presented with recurrent ICD discharge; circumstantial evidence suggests an appropriate shock due to ventricular arrhythmia Triggers are unclear ? hypoxemia Atrial fibrillation rapid ventricular rates and inappropriate shock remains a possibility Plan Maintain normal electrolytes ICD interrogation ([facility] called) Past Patient History - Infectious Disease Hx of Infectious Diseases: None - Tetanus Immunizations Tetanus Immunization: Unknown - Past Medical History & Family History Past Medical History?: Yes - Past Social History Smoking Status: Former Smoker - CARDIAC Hx Atrial Fibrillation: Yes Hx Congestive Heart Failure: Yes Hx Hypertension: Yes Hx Pacemaker: Yes Hx Peripheral Edema: Yes - PULMONARY Hx Chronic Obstructive Pulmonary Disease (COPD): Yes Hx Emphysema: Yes - NEUROLOGICAL Hx Neurological Disorder: No - HEENT Hx HEENT Problems: Yes Other/Comment: Eye glasses - RENAL Hx Chronic Kidney Disease: No - ENDOCRINE/METABOLIC Hx Endocrine Disorders: No - HEMATOLOGICAL/ONCOLOGICAL Hx Human Immunodeficiency Virus (HIV): No - INTEGUMENTARY Hx Dermatological Problems: No - MUSCULOSKELETAL/RHEUMATOLOGICAL Hx Musculoskeletal Disorders: No Hx Falls: No - GASTROINTESTINAL Hx Gastrointestinal Disorders: No - GENITOURINARY/GYNECOLOGICAL Hx Genitourinary Disorders: Yes Hx Prostate Problems: Yes - PSYCHIATRIC Hx Substance Use: Yes - SURGICAL HISTORY Hx Surgeries: Yes Hx Herniorrhaphy: Yes Other/Comment: Hx Pacemaker insertion - ANESTHESIA Hx Anesthesia: Yes Hx Anesthesia Reactions: No Hx Malignant Hyperthermia: No Meds Allergies/Adverse Reactions: Allergies Allergy/AdvReac Type Severity Reaction Status Date / Time Iodinated Contrast- Oral and AdvReac ANAPHYLAXIS Verified 06/12/18 14:37 IV Dye - Medications Medications: Current Medications Albuterol/Ipratropium (Duoneb 3 Mg/0.5 Mg (3 Ml) Ud) 3 ml INH RQ4 [facility] Amiodarone HCl (Cordarone) 200 mg PO BID [facility] Last Admin: 06/12/18 18:15 Dose: 200 mg Aspirin (Aspirin Chewable) 81 mg PO DAILY [facility] Last Admin: 06/12/18 16:35 Dose: 81 mg Clopidogrel Bisulfate (Plavix) 75 mg PO DAILY [facility] Last Admin: 06/12/18 16:37 Dose: 75 mg Furosemide (Lasix) 40 mg IVP Q12 [facility] Heparin Sodium/Sodium Chloride (Heparin 61236 Units/250ml 1/2 Normal Saline) 25,000 units in 250 mls @ 8.618 mls/hr IV .Q24H PRN; Protocol Last Admin: 06/12/18 18:16 Dose: 10 units/kg/hr, 8.618 mls/hr Isosorbide Mononitrate (Imdur) 60 mg PO DAILY [facility] Last Admin: 06/12/18 16:35 Dose: 60 mg Lisinopril (Zestril) 10 mg PO DAILY [facility] Last Admin: 06/12/18 16:35 Dose: 10 mg Metoprolol Tartrate (Lopressor) 12.5 mg PO BID [facility] Last Admin: 06/12/18 18:15 Dose: 12.5 mg Rosuvastatin Calcium (Crestor) 5 mg PO HS [facility] Spironolactone (Aldactone) 12.5 mg PO DAILY [facility] Tamsulosin HCl (Flomax) 0.4 mg PO DAILY [facility] Zolpidem Tartrate (Ambien) 5 mg PO HS PRN PRN Reason: sleeplessness Results - Vital Signs Recent Vital Signs: Last Vital Signs Temp 97.3 F L 06/12/18 17:20 Pulse 88 06/12/18 19:25 Resp 22 06/12/18 17:20 BP 130/78 06/12/18 17:20 Pulse Ox 97 06/12/18 17:20 - Labs Result Diagrams: 06/12/18 14:53 06/12/18 14:53 Labs: Laboratory Results - last 24 hr 06/12/18 06/12/18 06/12/18 14:53 14:53 14:53 WBC 7.8 D RBC 4.11 L Hgb 11.8 L Hct 36.8 MCV 89.5 MCH 28.6 MCHC 32.0 L RDW 15.8 H Plt Count 241 MPV 9.6 Neut % (Auto) 72.4 Lymph % (Auto) 15.2 L [place] % (Auto) 10.6 H Eos % (Auto) 0.9 Baso % (Auto) 0.9 Neut # (Auto) 5.6 Lymph # (Auto) 1.2 [place] # (Auto) 0.8 Eos # (Auto) 0.1 Baso # (Auto) 0.1 PT 11.2 INR 1.0 APTT 27 Sodium 140 Potassium 3.8 Chloride 104 Carbon Dioxide 29 Anion Gap 11 BUN 17 Creatinine 0.7 L Est GFR ( Amer) > 60 Est GFR (Non-Af Amer) > 60 Random Glucose 121 H D Calcium 8.9 Phosphorus Magnesium Total Bilirubin 0.3 AST 29 ALT 18 L D Alkaline Phosphatase 66 Total Creatine Kinase 199 H CK-MB (Mass) 3.70 H Troponin I 0.1170 NT-Pro-B Natriuret Pep 6130 H Total Protein 6.6 Albumin 3.6 Globulin 3.0 Albumin/Globulin Ratio 1.2 06/12/18 16:50 WBC RBC Hgb Hct MCV MCH MCHC RDW Plt Count MPV Neut % (Auto) Lymph % (Auto) [place] % (Auto) Eos % (Auto) Baso % (Auto) Neut # (Auto) Lymph # (Auto) [place] # (Auto) Eos # (Auto) Baso # (Auto) PT INR APTT Sodium Potassium Chloride Carbon Dioxide Anion Gap BUN Creatinine Est GFR ( Amer) Est GFR (Non-Af Amer) Random Glucose Calcium Phosphorus 3.2 Magnesium 1.8 Total Bilirubin AST ALT Alkaline Phosphatase Total Creatine Kinase CK-MB (Mass) Troponin I NT-Pro-B Natriuret Pep Total Protein Albumin Globulin Albumin/Globulin Ratio
[2018-06-12] MEDS ORDERED: Home Med 1 UNIT (Atorvastatin [Lipitor] 20 MG) PO SCH (22:00)
--- NOTE | 2018-06-12 23:25 | CP.PCM.CON ---
History of Present Illness - History of Present Illness History of Present Illness: CC: s/P Cardiac shock x 3 73 y/o male with a PMHx of HLD, HTN, CAD, CHF, COPD (on home O2), A Fib, and s/p pacemaker, brought in by ambulance for evaluation of chest pain that began just [employer]. Patient has had multiple recent admissions for exacerbation of CHF and COPD. Of note patient is normally on home O2, and states he went out shopping today. Shortly after he got home, patient felt a twinge in his chest, and then his defibrillator shocked him three times. Since then patient has had pain around the pacemaker site, associated with SOB. Patient also notes his legs have been somewhat swollen. Otherwise patient denies any fevers, nausea, vomiting, or other complaints. Chief Complaint (Nursing): Chest Pain History Per: Patient History/Exam Limitations: no limitations Onset/Duration Of Symptoms: Mins Current Symptoms Are (Timing): Still Present Associated Symptoms: Dyspnea Past Medical History Reviewed: Historical Data, Nursing Documentation, Vital Signs Vital Signs: Last Vital Signs Temp 98.4 F 06/12/18 14:47 Pulse 98 H 06/12/18 14:42 Resp 16 06/12/18 14:42 BP 144/97 H 06/12/18 14:42 Pulse Ox 96 06/12/18 14:42 - Medical History PMH: Atrial Fibrillation, Benign Prostatic Hyperplasia, CAD, CHF, COPD, Emphyse ma, HTN, Hyperlipidemia, Peripheral Edema Denies: HIV, Chronic Kidney Disease Surgical History: Hernia Repair, Pacemaker - [facility] Procedures ASSISTANCE WITH RESPIRATORY VENTILATION, 24-96 HRS, CPAP (05/19/18) ASSISTANCE WITH RESPIRATORY VENTILATION, <24 HRS, CPAP (03/03/18) FLUOROSCOPY OF LEFT HEART USING LOW OSMOLAR CONTRAST (12/08/17) FLUOROSCOPY OF MULT COR ART USING L OSM CONTRAST (12/08/17) INSERTION OF ENDOTRACHEAL AIRWAY INTO TRACHEA, VIA OPENING (12/08/17) MEASURE OF CARDIAC SAMPL & PRESSURE, L HEART, PERC APPROACH (12/08/17) RESPIRATORY VENTILATION, GREATER THAN 96 CONSECUTIVE HOURS (12/08/17) Family History: States: Unknown Family Hx - Social History Hx Alcohol Use: No Hx Substance Use: Yes - Immunization History Hx Tetanus Toxoid Vaccination: No Hx Influenza Vaccination: No Hx Pneumococcal Vaccination: No Review Of Systems Except As Marked, All Systems Reviewed And Found Negative. Constitutional: Negative for: Fever Cardiovascular: Positive for: Chest Pain (at pacemaker site) Respiratory: Positive for: Shortness of Breath. Negative for: Cough Gastrointestinal: Negative for: Nausea, Vomiting, Diarrhea Musculoskeletal: Negative for: Back Pain Skin: Negative for: Rash Neurological: Negative for: Headache, Dizziness Physical Exam - Physical Exam Appears: Non-toxic, No Acute Distress Skin: Normal Color, Diaphoretic (and Cool to touch) Head: Atraumatic, Normacephalic Eye(s): bilateral: Normal Inspection, PERRL, EOMI Oral Mucosa: Moist Neck: Normal ROM Chest: Other (Pacemaker noted) Cardiovascular: Rhythm Regular, No Murmur, Other (Normal S1,S2) Respiratory: No Decreased Breath Sounds, No Rhonchi, No Wheezing, Other (Tachypneic, visibly mouth-breathing) Gastrointestinal/Abdominal: Soft, No Tenderness, No Distention Extremity: Normal ROM, No Calf Tenderness, No Deformity, Swelling (Mild non- pitting edema bilaterally) Pulses: Left Dorsalis Pedis: Normal, Right Dorsalis Pedis: Normal Neurological/Psych: Oriented x3, Normal Motor, Normal Sensation Past Patient History - Infectious Disease Hx of Infectious Diseases: None - Tetanus Immunizations Tetanus Immunization: Unknown - Past Medical History & Family History Past Medical History?: Yes - Past Social History Smoking Status: Former Smoker - CARDIAC Hx Atrial Fibrillation: Yes Hx Congestive Heart Failure: Yes Hx Hypertension: Yes Hx Pacemaker: Yes Hx Peripheral Edema: Yes - PULMONARY Hx Chronic Obstructive Pulmonary Disease (COPD): Yes Hx Emphysema: Yes - NEUROLOGICAL Hx Neurological Disorder: No - HEENT Hx HEENT Problems: Yes Other/Comment: Eye glasses - RENAL Hx Chronic Kidney Disease: No - ENDOCRINE/METABOLIC Hx Endocrine Disorders: No - HEMATOLOGICAL/ONCOLOGICAL Hx Human Immunodeficiency Virus (HIV): No - INTEGUMENTARY Hx Dermatological Problems: No - MUSCULOSKELETAL/RHEUMATOLOGICAL Hx Musculoskeletal Disorders: No Hx Falls: No - GASTROINTESTINAL Hx Gastrointestinal Disorders: No - GENITOURINARY/GYNECOLOGICAL Hx Genitourinary Disorders: Yes Hx Prostate Problems: Yes - PSYCHIATRIC Hx Substance Use: Yes - SURGICAL HISTORY Hx Surgeries: Yes Hx Herniorrhaphy: Yes Other/Comment: Hx Pacemaker insertion - ANESTHESIA Hx Anesthesia: Yes Hx Anesthesia Reactions: No Hx Malignant Hyperthermia: No Meds Allergies/Adverse Reactions: Allergies Allergy/AdvReac Type Severity Reaction Status Date / Time Iodinated Contrast- Oral and AdvReac ANAPHYLAXIS Verified 06/12/18 14:37 IV Dye - Medications Medications: Current Medications Albuterol/Ipratropium (Duoneb 3 Mg/0.5 Mg (3 Ml) Ud) 3 ml INH RQ4 [facility] Amiodarone HCl (Cordarone) 200 mg PO BID [facility] Last Admin: 06/12/18 18:15 Dose: 200 mg Aspirin (Aspirin Chewable) 81 mg PO DAILY [facility] Last Admin: 06/12/18 16:35 Dose: 81 mg Clopidogrel Bisulfate (Plavix) 75 mg PO DAILY [facility] Last Admin: 06/12/18 16:37 Dose: 75 mg Furosemide (Lasix) 40 mg IVP Q12 [facility] Last Admin: 06/12/18 21:09 Dose: 40 mg Heparin Sodium/Sodium Chloride (Heparin 76236 Units/250ml 1/2 Normal Saline) 25,000 units in 250 mls @ 8.618 mls/hr IV .Q24H PRN; Protocol Last Admin: 06/12/18 18:16 Dose: 10 units/kg/hr, 8.618 mls/hr Isosorbide Mononitrate (Imdur) 60 mg PO DAILY [facility] Last Admin: 06/12/18 16:35 Dose: 60 mg Lisinopril (Zestril) 10 mg PO DAILY [facility] Last Admin: 06/12/18 16:35 Dose: 10 mg Metoprolol Tartrate (Lopressor) 12.5 mg PO BID [facility] Last Admin: 06/12/18 18:15 Dose: 12.5 mg Rosuvastatin Calcium (Crestor) 5 mg PO HS [facility] Last Admin: 06/12/18 21:09 Dose: 5 mg Spironolactone (Aldactone) 12.5 mg PO DAILY [facility] Tamsulosin HCl (Flomax) 0.4 mg PO DAILY [facility] Zolpidem Tartrate (Ambien) 5 mg PO HS PRN PRN Reason: sleeplessness Last Admin: 06/12/18 21:09 Dose: 5 mg Results - Vital Signs Recent Vital Signs: Last Vital Signs Temp 97.3 F L 06/12/18 17:20 Pulse 88 06/12/18 19:25 Resp 22 06/12/18 17:20 BP 126/75 06/12/18 21:09 Pulse Ox 97 06/12/18 17:20 - Labs Result Diagrams: 06/12/18 14:53 06/12/18 14:53 Labs: Laboratory Results - last 24 hr 06/12/18 06/12/18 06/12/18 14:53 14:53 14:53 WBC 7.8 D RBC 4.11 L Hgb 11.8 L Hct 36.8 MCV 89.5 MCH 28.6 MCHC 32.0 L RDW 15.8 H Plt Count 241 MPV 9.6 Neut % (Auto) 72.4 Lymph % (Auto) 15.[address] [place] % (Auto) 10.6 H Eos % (Auto) 0.9 Baso % (Auto) 0.9 Neut # (Auto) 5.6 Lymph # (Auto) 1.2 [place] # (Auto) 0.8 Eos # (Auto) 0.1 Baso # (Auto) 0.1 PT 11.2 INR 1.0 APTT 27 Sodium 140 Potassium 3.8 Chloride 104 Carbon Dioxide 29 Anion Gap 11 BUN 17 Creatinine 0.7 L Est GFR ( Amer) > 60 Est GFR (Non-Af Amer) > 60 Random Glucose 121 H D Calcium 8.9 Phosphorus Magnesium Total Bilirubin 0.3 AST 29 ALT 18 L D Alkaline Phosphatase 66 Total Creatine Kinase 199 H CK-MB (Mass) 3.70 H Troponin I 0.1170 NT-Pro-B Natriuret Pep 6130 H Total Protein 6.6 Albumin 3.6 Globulin 3.0 Albumin/Globulin Ratio 1.2 06/12/18 16:50 WBC RBC Hgb Hct MCV MCH MCHC RDW Plt Count MPV Neut % (Auto) Lymph % (Auto) [place] % (Auto) Eos % (Auto) Baso % (Auto) Neut # (Auto) Lymph # (Auto) [place] # (Auto) Eos # (Auto) Baso # (Auto) PT INR APTT Sodium Potassium Chloride Carbon Dioxide Anion Gap BUN Creatinine Est GFR ( Amer) Est GFR (Non-Af Amer) Random Glucose Calcium Phosphorus 3.2 Magnesium 1.8 Total Bilirubin AST ALT Alkaline Phosphatase Total Creatine Kinase CK-MB (Mass) Troponin I NT-Pro-B Natriuret Pep Total Protein Albumin Globulin Albumin/Globulin Ratio Assessment & Plan - Assessment and Plan (Free Text) Assessment: Ischemic CMP s/p AICD Cardiac shock x 3 CAD s/p stents HTN EP evaluation
[2018-06-13] MEDS: Albuterol-Ipratrop 3 mg / 0.5 (3 ml) UD INH SCH ×7 (00:06→23:44)
[2018-06-13 01:41] LABS: CK-MB 7.62 ng/mL (0.0-3.38); TROPONIN I 1.66 ng/mL (0.00-0.120)
[2018-06-13] MEDS: Heparin25000 units/250ml 1/2NS 25,000 UNITS/250 ML BAG IV PRN ×2 (01:45→20:52)
[2018-06-13 08:00] LABS: BASO # 0.1 K/uL (0.0-0.2); BASO % 0.9 % (0.0-2.0); EOS # 0.1 K/uL (0.0-0.7); EOS % 1.5 % (0.0-4.0); HEMOGLOBIN 10.7 g/dL (12.0-18.0); LYMPH # 1.1 K/uL (1.0-4.3); LYMPH % 16.7 % (20.0-40.0); MEAN CELL VOLUME 89.2 fL (80.0-94.0); MEAN CORPUSCULAR HEMOGLOBIN 28.8 pg (27.0-31.0); MEAN CORPUSCULAR HGB CONC 32.2 g/dL (33.0-37.0); MEAN PLATELET VOLUME 9.8 fL (7.2-11.7); MONO # 0.8 K/uL (0.0-0.8); NEUT # 4.6 K/uL (1.8-7.0); NEUT % 68.9 % (50.0-75.0); RBC 3.73 Mil/uL (4.40-5.90); RED CELL DISTRIBUTION WIDTH 15.3 % (11.5-14.5); WHITE BLOOD COUNT 6.7 K/uL (4.8-10.8)
[2018-06-13 08:02] LABS: INR 1.1
[2018-06-13 08:32] LABS: ALB/GLOB RATIO 1.1 (1.0-2.1); ALT/SGPT 23 U/L (21-72); AST/SGOT 47 U/L (17-59); BLOOD UREA NITROGEN 19 mg/dL (9-20); CALCIUM 8.7 mg/dl (8.6-10.4); GFR NON-AFRICAN AMERICAN > 60; HDL CHOLESTEROL 41 mg/dL (30-70)
[2018-06-13 08:40] LABS: LDL CHOLESTEROL 91 mg/dL (0-129)
[2018-06-13 09:03] LABS: CK-MB 6.1 ng/mL (0.0-3.38); TROPONIN I 1.15 ng/mL (0.00-0.120)
--- NOTE | 2018-06-13 09:23 | CP.PCM.PN ---
Subjective - Date & Time of Evaluation Date of Evaluation: 06/13/18 Time of Evaluation: 10:00 - Subjective Subjective: Patient examined at bedside. Pt reports continued pain in left chest at site of AICD. Denies further complaints including worsening SOB, nausea, abdominal pain, diarrhea. Objective - Vital Signs/Intake and Output Vital Signs (last 24 hours): Temp Pulse Resp BP Pulse Ox 98.1 F 92 H 20 105/73 96 06/12/18 23:17 06/12/18 23:17 06/12/18 23:17 06/12/18 23:17 06/12/18 23:17 - Medications Medications: Current Medications Albuterol/Ipratropium (Duoneb 3 Mg/0.5 Mg (3 Ml) Ud) 3 ml INH RQ4 [facility] Last Admin: 06/13/18 07:45 Dose: 3 ml Amiodarone HCl (Cordarone) 200 mg PO BID [facility] Last Admin: 06/12/18 18:15 Dose: 200 mg Aspirin (Aspirin Chewable) 81 mg PO DAILY [facility] Last Admin: 06/12/18 16:35 Dose: 81 mg Clopidogrel Bisulfate (Plavix) 75 mg PO DAILY [facility] Last Admin: 06/12/18 16:37 Dose: 75 mg Furosemide (Lasix) 40 mg IVP Q12 [facility] Last Admin: 06/12/18 21:09 Dose: 40 mg Heparin Sodium/Sodium Chloride (Heparin 74640 Units/250ml 1/2 Normal Saline) 25,000 units in 250 mls @ 10.342 mls/hr IV .Q24H PRN; Protocol Last Admin: 06/13/18 01:45 Dose: 12 units/kg/hr, 10.342 mls/hr Isosorbide Mononitrate (Imdur) 60 mg PO DAILY [facility] Last Admin: 06/12/18 16:35 Dose: 60 mg Lisinopril (Zestril) 10 mg PO DAILY [facility] Last Admin: 06/12/18 16:35 Dose: 10 mg Metoprolol Tartrate (Lopressor) 12.5 mg PO BID [facility] Last Admin: 06/12/18 18:15 Dose: 12.5 mg Rosuvastatin Calcium (Crestor) 5 mg PO HS [facility] Last Admin: 06/12/18 21:09 Dose: 5 mg Spironolactone (Aldactone) 12.5 mg PO DAILY [facility] Tamsulosin HCl (Flomax) 0.4 mg PO DAILY [facility] Zolpidem Tartrate (Ambien) 5 mg PO HS PRN PRN Reason: sleeplessness Last Admin: 06/12/18 21:09 Dose: 5 mg - Labs Labs: 06/13/18 07:40 06/13/18 07:40 PT 12.0 SECONDS (9.7-12.2) 06/13/18 07:40 INR 1.1 06/13/18 07:40 APTT 71 SECONDS (21-34) H D 06/13/18 07:40 Assessment and Plan - Assessment and Plan (Free Text) Assessment: 73 year old male w/ pmhx of CHF, COPD on home O2, CAD, A fib, PVD, HTN, HLD, and BPH admitted for evaluation and treatment of ICD discharge Plan: ICD discharge - Awaiting ICD interrogation - monitor on tele - troponins elevated on admission - f/u am APRIL - Heparin drip - imdur 60mg PO daily - EKG: ventricular paced rhythm - Cardiology consult, Dr. Maddox - EP consult, Dr. Goddard Acute on chronic systolic congestive heart failure (HFrEF) exacerbation - Echo 04/03/18: EF 20-25%, mod dialted LV, mild LVH, global hypokinesis LV, grade I diastolic dysfunction, biatrial enlargement, mild MR, mod TR, mild pulm HTN (42 mmHg), trace pericardial effusion - CXR:dense consolidative opacifications in the mid to lower lung zones. moderate loculated b/l pleural effusions. cardiomegaly. atherosclerotic calcification in aorta. - BiPAP PRN - NC PRN - NRB PRN - Digoxin 0.125 mg PO daily - Lasix 40 mg IV Q12H - Lisinopril 10 mg PO daily - Metoprolol 12.5 mg PO BID - Spironolactone 12.5 mg PO daily Chronic obstructive pulmonary disease - On home O2 - BiPAP PRN - NC PRN - NRB PRN - Duoneb Q4H [facility] Coronary artery disease - ASA 81 mg PO daily - Plavix 75 mg PO daily - Crestor 5mg po HS Paroxysmal atrial fibrillation - Digoxin 0.125 mg PO daily - Eliquis 2.5mg PO BID - Amio 200mg po BID Hypertension - Vitals Q6H - Lisinopril 10 mg PO daily - Metoprolol 12.5 mg PO BID - Spironolactone 12.5 mg PO daily - Lasix 40 mg IV Q12H Hyperlipidemia - Crestor 5mg po HS Benign prostatic hypertrophy - Flomax 0.4 mg PO daily Ppx: VTE: SCDs contraindicated due to pedal edema, Heparin 5000 units SC Q8H GI: not indicated HHD Discussed with Dr. Carlos Shore, PGY-1
[2018-06-13] MEDS ORDERED: Digoxin 125 mcg (0.125 mg) Tab PO SCH (10:00)
--- NOTE | 2018-06-13 10:27 | CARD ---
APPROVED REPORT Date of service: 06/12/2018 EKG Measurement Heart [id number] <Conclusion> Atrial-sensed ventricular-paced rhythm with frequent AV dual-paced complexes Abnormal ECG
--- NOTE | 2018-06-13 10:27 | CARD ---
APPROVED REPORT Date of service: 06/12/2018 EKG Measurement Heart [id number] [id number] <Conclusion> Poor data quality, interpretation may be adversely affected AV dual-paced rhythm with occasional ventricular-paced complexes Abnormal ECG
--- NOTE | 2018-06-13 13:00 | RAD ---
Date of service: 06/12/2018 HISTORY: CHF exacerbation COMPARISON: CT chest 04/03/2018; chest x-ray 05/19/2018 FINDINGS: LUNGS: The oval masslike opacities over each mid lung zone are again noted and compatible with bilateral fissural pleural fluid collections Since the prior exam there is likely some interval improved aeration and slight decreased pleural effusion with some residual still present at each lung base. Current lung volumes lower limits of normal. PLEURA: Small pleural effusions inferred-leave slightly less now than before. No pneumothorax seen. CARDIOVASCULAR: There is presence of aortic atherosclerotic calcification on x-ray. Cardiomegaly-unchanged. Dual lead pacemaker/AICD device in place as before. Concomitant mild pulmonary venous congestion suspect probably slightly less now than before. OSSEOUS STRUCTURES: Bilateral shoulder arthrosis. VISUALIZED UPPER ABDOMEN: Normal. OTHER FINDINGS: None. IMPRESSION: The mid lung zone bilateral oval opacities are compatible with similar bilateral fissural pleural fluid collections. Each small pleural effusion at each costophrenic angle albeit still present is slightly less now than before. Some improved aeration at both lung bases is likely. Residual bibasilar atelectatic changes persisting. Cardiomegaly with similar and/or slightly less now than before mild pulmonary venous congestion. Other findings as above.
[2018-06-13 20:33] LABS: PROTHROMBIN TIME 11.3 SECONDS (9.7-12.2)
[2018-06-14] MEDS: Albuterol-Ipratrop 3 mg / 0.5 (3 ml) UD INH SCH ×6 (03:23→23:58)
[2018-06-14 08:21] LABS: BASO # 0.1 K/uL (0.0-0.2); EOS # 0.1 K/uL (0.0-0.7); EOS % 1.3 % (0.0-4.0); HEMOGLOBIN 12.1 g/dL (12.0-18.0); LYMPH # 0.9 K/uL (1.0-4.3); LYMPH % 13.3 % (20.0-40.0); MEAN CELL VOLUME 90.1 fL (80.0-94.0); MEAN CORPUSCULAR HEMOGLOBIN 28.6 pg (27.0-31.0); MEAN CORPUSCULAR HGB CONC 31.7 g/dL (33.0-37.0); MEAN PLATELET VOLUME 9.8 fL (7.2-11.7); MONO # 0.7 K/uL (0.0-0.8); MONO % 10.5 % (0.0-10.0); NEUT % 73.9 % (50.0-75.0); RBC 4.25 Mil/uL (4.40-5.90); RED CELL DISTRIBUTION WIDTH 15.9 % (11.5-14.5); WHITE BLOOD COUNT 6.8 K/uL (4.8-10.8)
[2018-06-14 08:40] LABS: ALB/GLOB RATIO 1.1 (1.0-2.1); ALBUMIN 3.7 g/dL (3.5-5.0); ALT/SGPT 15 U/L (21-72); AST/SGOT 64 U/L (17-59); BLOOD UREA NITROGEN 24 mg/dL (9-20); CALCIUM 8.9 mg/dl (8.6-10.4); GFR NON-AFRICAN AMERICAN > 60
--- NOTE | 2018-06-14 14:57 | CP.PCM.PN ---
Subjective - Date & Time of Evaluation Date of Evaluation: 06/14/18 Time of Evaluation: 14:47 - Subjective Subjective: Medicine Note for Dr. Gonzalez Patient was seen and examined at bedside. Patient speaks primarily Croatian. Translation provided by colleague. JOANNA santacruz. Patient's AICD was interrogated by a [employer] Rep. Objective - Vital Signs/Intake and Output Vital Signs (last 24 hours): Temp Pulse Resp BP Pulse Ox 97.7 F 86 18 146/83 95 06/14/18 07:20 06/14/18 08:13 06/14/18 07:20 06/14/18 09:32 06/14/18 07:20 Intake and Output: 06/14/18 06/14/18 06:59 18:59 Intake Total 250 Balance 250 - Medications Medications: Current Medications Albuterol/Ipratropium (Duoneb 3 Mg/0.5 Mg (3 Ml) Ud) 3 ml INH RQ4 [facility] Last Admin: 06/14/18 07:50 Dose: 3 ml Amiodarone HCl (Cordarone) 100 mg PO Q12 [facility] Aspirin (Aspirin Chewable) 81 mg PO DAILY [facility] Last Admin: 06/14/18 09:32 Dose: 81 mg Clopidogrel Bisulfate (Plavix) 75 mg PO DAILY [facility] Last Admin: 06/14/18 09:32 Dose: 75 mg Furosemide (Lasix) 40 mg IVP Q12 [facility] Last Admin: 06/14/18 09:32 Dose: 40 mg Heparin Sodium (Porcine) (Heparin) 5,000 units SC Q8H [facility] Heparin Sodium/Sodium Chloride (Heparin 61411 Units/250ml 1/2 Normal Saline) 25,000 units in 250 mls @ 10.342 mls/hr IV .Q24H PRN; Protocol Stop: 06/15/18 01:46 Last Admin: 06/13/18 20:52 Dose: 12 units/kg/hr, 10.342 mls/hr Isosorbide Mononitrate (Imdur) 60 mg PO DAILY [facility] Last Admin: 06/14/18 09:32 Dose: 60 mg Lisinopril (Zestril) 10 mg PO DAILY [facility] Last Admin: 06/14/18 09:32 Dose: 10 mg Metoprolol Tartrate (Lopressor) 50 mg PO Q12 [facility] Rosuvastatin Calcium (Crestor) 5 mg PO HS [facility] Last Admin: 06/13/18 21:23 Dose: 5 mg Spironolactone (Aldactone) 12.5 mg PO DAILY [facility] Last Admin: 06/14/18 09:32 Dose: 12.5 mg Tamsulosin HCl (Flomax) 0.4 mg PO DAILY [facility] Last Admin: 06/14/18 09:32 Dose: 0.4 mg Zolpidem Tartrate (Ambien) 5 mg PO HS PRN PRN Reason: sleeplessness Last Admin: 06/13/18 21:23 Dose: 5 mg - Labs Labs: 06/14/18 08:10 06/14/18 08:10 PT 11.3 SECONDS (9.7-12.2) 06/13/18 20:15 INR 1.0 06/13/18 20:15 APTT 67 SECONDS (21-34) H 06/13/18 20:15 - Constitutional Appears: No Acute Distress - Head Exam Head Exam: NORMAL INSPECTION, NORMOCEPHALIC - Eye Exam Eye Exam: EOMI, Normal appearance, PERRL Pupil Exam: NORMAL ACCOMODATION, PERRL - ENT Exam ENT Exam: Mucous Membranes Moist - Respiratory Exam Respiratory Exam: Clear to Ausculation Bilateral, NORMAL BREATHING PATTERN. absent: Decreased Breath Sounds, Rhonchi, Wheezes - Cardiovascular Exam Cardiovascular Exam: REGULAR RHYTHM, +S1, +S2 - GI/Abdominal Exam GI & Abdominal Exam: Soft, Normal Bowel Sounds. absent: Distended, Tenderness - Extremities Exam Extremities Exam: Normal Inspection. absent: Pedal Edema, Tenderness - Neurological Exam Neurological Exam: Alert, Awake, Oriented x3 - Psychiatric Exam Psychiatric exam: Normal Affect, Normal Mood - Skin Skin Exam: Dry, Intact, Normal Color, Warm Assessment and Plan - Assessment and Plan (Free Text) Plan: ICD Discharge - Cardiology consult, Dr. Maddox - EP consult, Dr. Goddard Management: - AICD interrogated - shock 10 times total due to vtach/ vfib rhythm likely s econdary to ischemia - Plan for cardiac cath 06/17/18 - Heparin drip will transition to SC Sunday - Plan for Cardiac cath 06/17/18 Congestive heart failure (HFrEF) Exacerbation Imaging: - Echo 04/03/18: EF 20-25%, mod dialted LV, mild LVH, global hypokinesis LV, grade I diastolic dysfunction, biatrial enlargement, mild MR, mod TR, mild pulm HTN (4 2 mmHg), trace pericardial effusion - CXR:dense consolidative opacifications in the mid to lower lung zones. moderate loculated b/l pleural effusions. cardiomegaly. atherosclerotic calcification in aorta. Management: - BiPAP PRN - NC PRN - NRB PRN - Lasix 40 mg IV Q12H - Lisinopril 10 mg PO daily - Metoprolol 50 mg PO BID - Spironolactone 12.5 mg PO daily Chronic obstructive pulmonary disease - On home O2 - BiPAP PRN - NC PRN - NRB PRN - Duoneb Q4H [facility] Coronary artery disease - ASA 81 mg PO daily - Plavix 75 mg PO daily - Crestor 5mg po HS Paroxysmal atrial fibrillation - Eliquis 2.5mg PO BID - held - Amio 100mg po BID Hypertension - Vitals Q6H - Lisinopril 10 mg PO daily - Metoprolol 50 mg PO BID - Spironolactone 12.5 mg PO daily - Lasix 40 mg IV Q12H Hyperlipidemia - Crestor 5mg po HS Benign prostatic hypertrophy - Flomax 0.4 mg PO daily Ppx: VTE: SCDs contraindicated due to pedal edema, Heparin drip, will be transitioned to hep sc q8 GI: not indicated HHD Disposition: Plan for Cardiac Catherization on Sunday06/17/[address] Maddox. Discussed with Izzy Adair DO, PGY2
[2018-06-14 15:03] LABS: PROTHROMBIN TIME 11.4 SECONDS (9.7-12.2)
[2018-06-14] MEDS: Heparin25000 units/250ml 1/2NS 25,000 UNITS/250 ML BAG IV PRN (22:25)
--- NOTE | 2018-06-15 00:53 | CP.PCM.PN ---
Subjective - Date & Time of Evaluation Date of Evaluation: 06/15/18 Time of Evaluation: 05:15 - Subjective Subjective: Patient examined at bedside. No acute overnight events. Patient reports he feels well. He is eating well, urinating, breathing without difficulty. Reports minimal left chest pain from shocks. Denies further complaint Objective - Vital Signs/Intake and Output Vital Signs (last 24 hours): Temp Pulse Resp BP Pulse Ox 97.6 F 90 18 121/74 97 06/14/18 15:05 06/14/18 16:00 06/14/18 15:05 06/14/18 21:33 06/14/18 15:05 Intake and Output: 06/14/18 06/15/18 18:59 06:59 Intake Total 250 Balance 250 - Medications Medications: Current Medications Albuterol/Ipratropium (Duoneb 3 Mg/0.5 Mg (3 Ml) Ud) 3 ml INH RQ4 [facility] Last Admin: 06/14/18 23:58 Dose: 3 ml Amiodarone HCl (Cordarone) 100 mg PO Q12 [facility] Last Admin: 06/14/18 21:33 Dose: 100 mg Aspirin (Aspirin Chewable) 81 mg PO DAILY [facility] Last Admin: 06/14/18 09:32 Dose: 81 mg Clopidogrel Bisulfate (Plavix) 75 mg PO DAILY [facility] Last Admin: 06/14/18 09:32 Dose: 75 mg Furosemide (Lasix) 40 mg IVP Q12 [facility] Last Admin: 06/14/18 21:33 Dose: 40 mg Heparin Sodium (Porcine) (Heparin) 5,000 units SC Q8H [facility] Heparin Sodium/Sodium Chloride (Heparin 60839 Units/250ml 1/2 Normal Saline) 25,000 units in 250 mls @ 10.342 mls/hr IV .Q24H PRN; Protocol Stop: 06/15/18 01:46 Last Admin: 06/14/18 22:25 Dose: 12 units/kg/hr, 10.342 mls/hr Isosorbide Mononitrate (Imdur) 60 mg PO DAILY [facility] Last Admin: 06/14/18 09:32 Dose: 60 mg Lisinopril (Zestril) 10 mg PO DAILY [facility] Last Admin: 06/14/18 09:32 Dose: 10 mg Metoprolol Tartrate (Lopressor) 50 mg PO Q12 [facility] Last Admin: 06/14/18 21:33 Dose: 50 mg Rosuvastatin Calcium (Crestor) 5 mg PO HS [facility] Last Admin: 06/14/18 21:32 Dose: 5 mg Spironolactone (Aldactone) 12.5 mg PO DAILY [facility] Last Admin: 06/14/18 09:32 Dose: 12.5 mg Tamsulosin HCl (Flomax) 0.4 mg PO DAILY [facility] Last Admin: 06/14/18 09:32 Dose: 0.4 mg Zolpidem Tartrate (Ambien) 5 mg PO HS PRN PRN Reason: sleeplessness Last Admin: 06/14/18 21:33 Dose: 5 mg - Labs Labs: 06/14/18 08:10 06/14/18 08:10 PT 11.4 SECONDS (9.7-12.2) 06/14/18 14:51 INR 1.0 06/14/18 14:51 APTT 69 SECONDS (21-34) H 06/14/18 14:51 - Constitutional Appears: Non-toxic, No Acute Distress - Head Exam Head Exam: ATRAUMATIC, NORMAL INSPECTION, NORMOCEPHALIC - Eye Exam Eye Exam: EOMI, Normal appearance - ENT Exam ENT Exam: Mucous Membranes Moist, Normal Exam - Neck Exam Neck Exam: Normal Inspection - Respiratory Exam Respiratory Exam: Accessory Muscle Use, Rales. absent: Respiratory Distress - Cardiovascular Exam Cardiovascular Exam: REGULAR RHYTHM, +S1, +S2 - GI/Abdominal Exam GI & Abdominal Exam: Soft, Normal Bowel Sounds. absent: Distended, Tenderness - Extremities Exam Extremities Exam: absent: Calf Tenderness, Pedal Edema Additional comments: muscle wasting b/l LE - Neurological Exam Neurological Exam: Alert, Awake - Psychiatric Exam Psychiatric exam: Flat Affect - Skin Skin Exam: Dry, Intact, Pallor, Warm Assessment and Plan - Assessment and Plan (Free Text) Assessment: 73 year old male w/ pmhx of CHF, COPD on home O2, CAD, A fib, PVD, HTN, HLD, and BPH admitted for evaluation and treatment of ICD discharge Plan: ICD Discharge - Cardiology consult, Dr. Maddox - EP consult, Dr. Goddard Management: - AICD interrogated - shock 10 times total due to vtach/ vfib rhythm likely secondary to ischemia - Plan for cardiac cath 06/17/18 - Heparin drip d/c 06/15 and will transition to SC Sunday - Plan for Cardiac cath 06/17/18 Congestive heart failure (HFrEF) Exacerbation Imaging: - Echo 04/03/18: EF 20-25%, mod dialted LV, mild LVH, global hypokinesis LV, grade I diastolic dysfunction, biatrial enlargement, mild MR, mod TR, mild pulm HTN (42 mmHg), trace pericardial effusion - CXR:dense consolidative opacifications in the mid to lower lung zones. moderate loculated b/l pleural effusions. cardiomegaly. atherosclerotic calcification in aorta. Management: - BiPAP PRN - NC PRN - NRB PRN - Lasix 40 mg IV Q12H - Lisinopril 10 mg PO daily - Metoprolol 50 mg PO q12 - Spironolactone 12.5 mg PO daily Chronic obstructive pulmonary disease - On home O2 - BiPAP PRN - NC PRN - NRB PRN - Duoneb Q4H [facility] Coronary artery disease - ASA 81 mg PO daily - Plavix 75 mg PO daily - Crestor 5mg po HS Paroxysmal atrial fibrillation - Eliquis 2.5mg PO BID - held - Amio 100mg po q12 Hypertension - Vitals Q6H - Lisinopril 10 mg PO daily - Metoprolol 50 mg PO q12 - Spironolactone 12.5 mg PO daily - Lasix 40 mg IV Q12H Hyperlipidemia - Crestor 5mg po HS Benign prostatic hypertrophy - Flomax 0.4 mg PO daily Ppx: VTE: SCDs contraindicated due to pedal edema, Heparin drip, will be transitioned to hep sc q8 GI: not indicated HHD Disposition: Plan for Cardiac Catherization on Sunday06/17/[address] Maddox. -Mindi Shore, PGY-1
[2018-06-15] MEDS: Albuterol-Ipratrop 3 mg / 0.5 (3 ml) UD INH SCH ×5 (03:30→20:19)
[2018-06-15 17:31] LABS: BASO # 0.1 K/uL (0.0-0.2); EOS # 0.2 K/uL (0.0-0.7); EOS % 2.9 % (0.0-4.0); HEMOGLOBIN 10.9 g/dL (12.0-18.0); LYMPH # 1.2 K/uL (1.0-4.3); LYMPH % 15.7 % (20.0-40.0); MEAN CELL VOLUME 89.3 fL (80.0-94.0); MEAN CORPUSCULAR HEMOGLOBIN 28.9 pg (27.0-31.0); MEAN CORPUSCULAR HGB CONC 32.4 g/dL (33.0-37.0); MEAN PLATELET VOLUME 9.8 fL (7.2-11.7); NEUT % 67.4 % (50.0-75.0); RBC 3.77 Mil/uL (4.40-5.90); RED CELL DISTRIBUTION WIDTH 15.5 % (11.5-14.5); WHITE BLOOD COUNT 7.4 K/uL (4.8-10.8)
[2018-06-15 17:51] LABS: ALB/GLOB RATIO 1.2 (1.0-2.1); ALBUMIN 3.5 g/dL (3.5-5.0); ALT/SGPT 17 U/L (21-72); AST/SGOT 40 U/L (17-59); BLOOD UREA NITROGEN 36 mg/dL (9-20); CALCIUM 9.1 mg/dl (8.6-10.4); GFR NON-AFRICAN AMERICAN 54
--- NOTE | 2018-06-15 20:51 | CP.PCM.PN ---
Subjective - Date & Time of Evaluation Date of Evaluation: 06/13/18 Time of Evaluation: 08:25 - Subjective Subjective: Patient seen, evaluated and examined at bedside. Denies further complaints including worsening SOB, nausea, abdominal pain, diarrhea. Objective - Vital Signs/Intake and Output Vital Signs (last 24 hours): Temp Pulse Resp BP Pulse Ox 98.1 F 92 H 20 105/73 96 06/12/18 23:17 06/12/18 23:17 06/12/18 23:17 06/12/18 23:17 06/12/18 23:17 - Medications Medications: Current Medications Albuterol/Ipratropium (Duoneb 3 Mg/0.5 Mg (3 Ml) Ud) 3 ml INH RQ4 [facility] Last Admin: 06/13/18 07:45 Dose: 3 ml Amiodarone HCl (Cordarone) 200 mg PO BID [facility] Last Admin: 06/12/18 18:15 Dose: 200 mg Aspirin (Aspirin Chewable) 81 mg PO DAILY [facility] Last Admin: 06/12/18 16:35 Dose: 81 mg Clopidogrel Bisulfate (Plavix) 75 mg PO DAILY [facility] Last Admin: 06/12/18 16:37 Dose: 75 mg Furosemide (Lasix) 40 mg IVP Q12 [facility] Last Admin: 06/12/18 21:09 Dose: 40 mg Heparin Sodium/Sodium Chloride (Heparin 43975 Units/250ml 1/2 Normal Saline) 25,000 units in 250 mls @ 10.342 mls/hr IV .Q24H PRN; Protocol Last Admin: 06/13/18 01:45 Dose: 12 units/kg/hr, 10.342 mls/hr Isosorbide Mononitrate (Imdur) 60 mg PO DAILY [facility] Last Admin: 06/12/18 16:35 Dose: 60 mg Lisinopril (Zestril) 10 mg PO DAILY [facility] Last Admin: 06/12/18 16:35 Dose: 10 mg Metoprolol Tartrate (Lopressor) 12.5 mg PO BID [facility] Last Admin: 06/12/18 18:15 Dose: 12.5 mg Rosuvastatin Calcium (Crestor) 5 mg PO HS [facility] Last Admin: 06/12/18 21:09 Dose: 5 mg Spironolactone (Aldactone) 12.5 mg PO DAILY [facility] Tamsulosin HCl (Flomax) 0.4 mg PO DAILY [facility] Zolpidem Tartrate (Ambien) 5 mg PO HS PRN PRN Reason: sleeplessness Last Admin: 06/12/18 21:09 Dose: 5 mg - Labs Labs: 06/13/18 07:40 06/13/18 07:40 PT 12.0 SECONDS (9.7-12.2) 06/13/18 07:40 INR 1.1 06/13/18 07:40 APTT 71 SECONDS (21-34) H D 06/13/18 07:40 Assessment and Plan - Assessment and Plan (Free Text) Assessment: 73 year old male w/ pmhx of CHF, COPD on home O2, CAD, A fib, PVD, HTN, HLD, and BPH admitted for evaluation and treatment of ICD discharge Plan: ICD discharge - Awaiting ICD interrogation - monitor on tele - troponins elevated on admission - f/u am APRIL - Heparin drip - imdur 60mg PO daily - EKG: ventricular paced rhythm - EP consult, Dr. Goddard Acute on chronic systolic congestive heart failure (HFrEF) exacerbation - Echo 04/03/18: EF 20-25%, mod dialted LV, mild LVH, global hypokinesis LV, grade I diastolic dysfunction, biatrial enlargement, mild MR, mod TR, mild pulm HTN (42 mmHg), trace pericardial effusion - CXR:dense consolidative opacifications in the mid to lower lung zones. moderate loculated b/l pleural effusions. cardiomegaly. atherosclerotic calcification in aorta. - BiPAP PRN - NC PRN - NRB PRN - Digoxin 0.125 mg PO daily - Lasix 40 mg IV Q12H - Lisinopril 10 mg PO daily - Metoprolol 12.5 mg PO BID - Spironolactone 12.5 mg PO daily Chronic obstructive pulmonary disease - On home O2 - BiPAP PRN - NC PRN - NRB PRN - Duoneb Q4H [facility] Coronary artery disease - ASA 81 mg PO daily - Plavix 75 mg PO daily - Crestor 5mg po HS Paroxysmal atrial fibrillation - Digoxin 0.125 mg PO daily - Eliquis 2.5mg PO BID - Amio 200mg po BID Hypertension - Vitals Q6H - Lisinopril 10 mg PO daily - Metoprolol 12.5 mg PO BID - Spironolactone 12.5 mg PO daily - Lasix 40 mg IV Q12H Hyperlipidemia - Crestor 5mg po HS Benign prostatic hypertrophy - Flomax 0.4 mg PO daily Ppx: VTE: SCDs contraindicated due to pedal edema, Heparin 5000 units SC Q8H GI: not indicated HHD Objective - Vital Signs/Intake and Output Vital Signs (last 24 hours): Temp Pulse Resp BP Pulse Ox 97.6 F 66 20 103/65 98 06/15/18 15:30 06/15/18 15:30 06/15/18 15:30 06/15/18 15:30 06/15/18 15:30 - Medications Medications: Current Medications Albuterol/Ipratropium (Duoneb 3 Mg/0.5 Mg (3 Ml) Ud) 3 ml INH RQ4 [facility] Last Admin: 06/15/18 20:19 Dose: 3 ml Amiodarone HCl (Cordarone) 100 mg PO Q12 [facility] Last Admin: 06/15/18 10:05 Dose: 100 mg Aspirin (Aspirin Chewable) 81 mg PO DAILY [facility] Last Admin: 06/15/18 10:07 Dose: 81 mg Clopidogrel Bisulfate (Plavix) 75 mg PO DAILY [facility] Last Admin: 06/15/18 10:06 Dose: 75 mg Furosemide (Lasix) 40 mg IVP Q12 [facility] Last Admin: 06/15/18 10:06 Dose: 40 mg Heparin Sodium (Porcine) (Heparin) 5,000 units SC Q8H [facility] Last Admin: 06/15/18 17:33 Dose: 5,000 units Isosorbide Mononitrate (Imdur) 60 mg PO DAILY [facility] Last Admin: 06/15/18 10:05 Dose: 60 mg Lisinopril (Zestril) 10 mg PO DAILY [facility] Last Admin: 06/15/18 10:05 Dose: 10 mg Metoprolol Tartrate (Lopressor) 50 mg PO Q12 [facility] Last Admin: 06/15/18 10:05 Dose: 50 mg Rosuvastatin Calcium (Crestor) 5 mg PO HS [facility] Last Admin: 06/14/18 21:32 Dose: 5 mg Spironolactone (Aldactone) 12.5 mg PO DAILY [facility] Last Admin: 06/15/18 10:05 Dose: 12.5 mg Tamsulosin HCl (Flomax) 0.4 mg PO DAILY [facility] Last Admin: 06/15/18 10:05 Dose: 0.4 mg Zolpidem Tartrate (Ambien) 5 mg PO HS PRN PRN Reason: sleeplessness Last Admin: 06/14/18 21:33 Dose: 5 mg - Labs Labs: 06/15/18 17:27 06/15/18 17:27 PT 11.4 SECONDS (9.7-12.2) 06/14/18 14:51 INR 1.0 06/14/18 14:51 APTT 69 SECONDS (21-34) H 06/14/18 14:51
--- NOTE | 2018-06-15 20:53 | CP.PCM.PN ---
Subjective - Date & Time of Evaluation Date of Evaluation: 06/14/18 Time of Evaluation: 08:20 - Subjective Subjective: Patient was seen and examined at bedside. Denies chest pain and dyspnea. Objective - Vital Signs/Intake and Output Vital Signs (last 24 hours): Temp Pulse Resp BP Pulse Ox 97.7 F 86 18 146/83 95 06/14/18 07:20 06/14/18 08:13 06/14/18 07:20 06/14/18 09:32 06/14/18 07:20 Intake and Output: 06/14/18 06/14/18 06:59 18:59 Intake Total 250 Balance 250 - Medications Medications: Current Medications Albuterol/Ipratropium (Duoneb 3 Mg/0.5 Mg (3 Ml) Ud) 3 ml INH RQ4 [facility] Last Admin: 06/14/18 07:50 Dose: 3 ml Amiodarone HCl (Cordarone) 100 mg PO Q12 [facility] Aspirin (Aspirin Chewable) 81 mg PO DAILY [facility] Last Admin: 06/14/18 09:32 Dose: 81 mg Clopidogrel Bisulfate (Plavix) 75 mg PO DAILY [facility] Last Admin: 06/14/18 09:32 Dose: 75 mg Furosemide (Lasix) 40 mg IVP Q12 [facility] Last Admin: 06/14/18 09:32 Dose: 40 mg Heparin Sodium (Porcine) (Heparin) 5,000 units SC Q8H [facility] Heparin Sodium/Sodium Chloride (Heparin 97683 Units/250ml 1/2 Normal Saline) 25,000 units in 250 mls @ 10.342 mls/hr IV .Q24H PRN; Protocol Stop: 06/15/18 01:46 Last Admin: 06/13/18 20:52 Dose: 12 units/kg/hr, 10.342 mls/hr Isosorbide Mononitrate (Imdur) 60 mg PO DAILY [facility] Last Admin: 06/14/18 09:32 Dose: 60 mg Lisinopril (Zestril) 10 mg PO DAILY [facility] Last Admin: 06/14/18 09:32 Dose: 10 mg Metoprolol Tartrate (Lopressor) 50 mg PO Q12 [facility] Rosuvastatin Calcium (Crestor) 5 mg PO HS [facility] Last Admin: 06/13/18 21:23 Dose: 5 mg Spironolactone (Aldactone) 12.5 mg PO DAILY [facility] Last Admin: 06/14/18 09:32 Dose: 12.5 mg Tamsulosin HCl (Flomax) 0.4 mg PO DAILY [facility] Last Admin: 06/14/18 09:32 Dose: 0.4 mg Zolpidem Tartrate (Ambien) 5 mg PO HS PRN PRN Reason: sleeplessness Last Admin: 06/13/18 21:23 Dose: 5 mg - Labs Labs: 06/14/18 08:10 06/14/18 08:10 PT 11.3 SECONDS (9.7-12.2) 06/13/18 20:15 INR 1.0 06/13/18 20:15 APTT 67 SECONDS (21-34) H 06/13/18 20:15 - Constitutional Appears: No Acute Distress - Head Exam Head Exam: NORMAL INSPECTION, NORMOCEPHALIC - Eye Exam Eye Exam: EOMI, Normal appearance, PERRL Pupil Exam: NORMAL ACCOMODATION, PERRL - ENT Exam ENT Exam: Mucous Membranes Moist - Respiratory Exam Respiratory Exam: Clear to Ausculation Bilateral, NORMAL BREATHING PATTERN. absent: Decreased Breath Sounds, Rhonchi, Wheezes - Cardiovascular Exam Cardiovascular Exam: REGULAR RHYTHM, +S1, +S2 - GI/Abdominal Exam GI & Abdominal Exam: Soft, Normal Bowel Sounds. absent: Distended, Tenderness - Extremities Exam Extremities Exam: Normal Inspection. absent: Pedal Edema, Tenderness - Neurological Exam Neurological Exam: Alert, Awake, Oriented x3 - Psychiatric Exam Psychiatric exam: Normal Affect, Normal Mood - Skin Skin Exam: Dry, Intact, Normal Color, Warm Assessment and Plan - Assessment and Plan (Free Text) Plan: ICD Discharge - EP consult, Dr. Goddard Management: - AICD interrogated - shock 10 times total due to vtach/ vfib rhythm likely secondary to ischemia - Plan for cardiac cath 06/17/18 - Heparin drip will transition to SC Sunday - Plan for Cardiac cath 06/17/18 Congestive heart failure (HFrEF) Exacerbation Imaging: - Echo 04/03/18: EF 20-25%, mod dialted LV, mild LVH, global hypokinesis LV, grade I diastolic dysfunction, biatrial enlargement, mild MR, mod TR, mild pulm HTN (42 mmHg), trace pericardial effusion - CXR:dense consolidative opacifications in the mid to lower lung zones. moderate loculated b/l pleural effusions. cardiomegaly. atherosclerotic calcification in aorta. Management: - BiPAP PRN - NC PRN - NRB PRN - Lasix 40 mg IV Q12H - Lisinopril 10 mg PO daily - Metoprolol 50 mg PO BID - Spironolactone 12.5 mg PO daily Chronic obstructive pulmonary disease - On home O2 - BiPAP PRN - NC PRN - NRB PRN - Duoneb Q4H [facility] Coronary artery disease - ASA 81 mg PO daily - Plavix 75 mg PO daily - Crestor 5mg po HS Paroxysmal atrial fibrillation - Eliquis 2.5mg PO BID - held - Amio 100mg po BID Hypertension - Vitals Q6H - Lisinopril 10 mg PO daily - Metoprolol 50 mg PO BID - Spironolactone 12.5 mg PO daily - Lasix 40 mg IV Q12H Hyperlipidemia - Crestor 5mg po HS Benign prostatic hypertrophy - Flomax 0.4 mg PO daily Ppx: VTE: SCDs contraindicated due to pedal edema, Heparin drip, will be transitioned to hep sc q8 GI: not indicated HHD Objective - Vital Signs/Intake and Output Vital Signs (last 24 hours): Temp Pulse Resp BP Pulse Ox 97.6 F 66 20 103/65 98 06/15/18 15:30 06/15/18 15:30 06/15/18 15:30 06/15/18 15:30 06/15/18 15:30 - Medications Medications: Current Medications Albuterol/Ipratropium (Duoneb 3 Mg/0.5 Mg (3 Ml) Ud) 3 ml INH RQ4 [facility] Last Admin: 06/15/18 20:19 Dose: 3 ml Amiodarone HCl (Cordarone) 100 mg PO Q12 [facility] Last Admin: 06/15/18 10:05 Dose: 100 mg Aspirin (Aspirin Chewable) 81 mg PO DAILY [facility] Last Admin: 06/15/18 10:07 Dose: 81 mg Clopidogrel Bisulfate (Plavix) 75 mg PO DAILY [facility] Last Admin: 06/15/18 10:06 Dose: 75 mg Furosemide (Lasix) 40 mg IVP Q12 [facility] Last Admin: 06/15/18 10:06 Dose: 40 mg Heparin Sodium (Porcine) (Heparin) 5,000 units SC Q8H [facility] Last Admin: 06/15/18 17:33 Dose: 5,000 units Isosorbide Mononitrate (Imdur) 60 mg PO DAILY [facility] Last Admin: 06/15/18 10:05 Dose: 60 mg Lisinopril (Zestril) 10 mg PO DAILY [facility] Last Admin: 06/15/18 10:05 Dose: 10 mg Metoprolol Tartrate (Lopressor) 50 mg PO Q12 [facility] Last Admin: 06/15/18 10:05 Dose: 50 mg Rosuvastatin Calcium (Crestor) 5 mg PO HS [facility] Last Admin: 06/14/18 21:32 Dose: 5 mg Spironolactone (Aldactone) 12.5 mg PO DAILY [facility] Last Admin: 06/15/18 10:05 Dose: 12.5 mg Tamsulosin HCl (Flomax) 0.4 mg PO DAILY [facility] Last Admin: 06/15/18 10:05 Dose: 0.4 mg Zolpidem Tartrate (Ambien) 5 mg PO HS PRN PRN Reason: sleeplessness Last Admin: 06/14/18 21:33 Dose: 5 mg - Labs Labs: 06/15/18 17:27 06/15/18 17:27 PT 11.4 SECONDS (9.7-12.2) 06/14/18 14:51 INR 1.0 06/14/18 14:51 APTT 69 SECONDS (21-34) H 06/14/18 14:51
--- NOTE | 2018-06-15 20:55 | CP.PCM.PN ---
Subjective - Date & Time of Evaluation Date of Evaluation: 06/15/18 Time of Evaluation: 10:20 - Subjective Subjective: Patient examined and evaluated Denies chest pain and dyspnea Objective - Vital Signs/Intake and Output Vital Signs (last 24 hours): Temp Pulse Resp BP Pulse Ox 97.6 F 90 18 121/74 97 06/14/18 15:05 06/14/18 16:00 06/14/18 15:05 06/14/18 21:33 06/14/18 15:05 Intake and Output: 06/14/18 06/15/18 18:59 06:59 Intake Total 250 Balance 250 - Medications Medications: Current Medications Albuterol/Ipratropium (Duoneb 3 Mg/0.5 Mg (3 Ml) Ud) 3 ml INH RQ4 [facility] Last Admin: 06/14/18 23:58 Dose: 3 ml Amiodarone HCl (Cordarone) 100 mg PO Q12 [facility] Last Admin: 06/14/18 21:33 Dose: 100 mg Aspirin (Aspirin Chewable) 81 mg PO DAILY [facility] Last Admin: 06/14/18 09:32 Dose: 81 mg Clopidogrel Bisulfate (Plavix) 75 mg PO DAILY [facility] Last Admin: 06/14/18 09:32 Dose: 75 mg Furosemide (Lasix) 40 mg IVP Q12 [facility] Last Admin: 06/14/18 21:33 Dose: 40 mg Heparin Sodium (Porcine) (Heparin) 5,000 units SC Q8H [facility] Heparin Sodium/Sodium Chloride (Heparin 15790 Units/250ml 1/2 Normal Saline) 25,000 units in 250 mls @ 10.342 mls/hr IV .Q24H PRN; Protocol Stop: 06/15/18 01:46 Last Admin: 06/14/18 22:25 Dose: 12 units/kg/hr, 10.342 mls/hr Isosorbide Mononitrate (Imdur) 60 mg PO DAILY [facility] Last Admin: 06/14/18 09:32 Dose: 60 mg Lisinopril (Zestril) 10 mg PO DAILY [facility] Last Admin: 06/14/18 09:32 Dose: 10 mg Metoprolol Tartrate (Lopressor) 50 mg PO Q12 [facility] Last Admin: 06/14/18 21:33 Dose: 50 mg Rosuvastatin Calcium (Crestor) 5 mg PO HS [facility] Last Admin: 06/14/18 21:32 Dose: 5 mg Spironolactone (Aldactone) 12.5 mg PO DAILY [facility] Last Admin: 06/14/18 09:32 Dose: 12.5 mg Tamsulosin HCl (Flomax) 0.4 mg PO DAILY [facility] Last Admin: 06/14/18 09:32 Dose: 0.4 mg Zolpidem Tartrate (Ambien) 5 mg PO HS PRN PRN Reason: sleeplessness Last Admin: 06/14/18 21:33 Dose: 5 mg - Labs Labs: 06/14/18 08:10 06/14/18 08:10 PT 11.4 SECONDS (9.7-12.2) 06/14/18 14:51 INR 1.0 06/14/18 14:51 APTT 69 SECONDS (21-34) H 06/14/18 14:51 - Constitutional Appears: Non-toxic, No Acute Distress - Head Exam Head Exam: ATRAUMATIC, NORMAL INSPECTION, NORMOCEPHALIC - Eye Exam Eye Exam: EOMI, Normal appearance - ENT Exam ENT Exam: Mucous Membranes Moist, Normal Exam - Neck Exam Neck Exam: Normal Inspection - Respiratory Exam Respiratory Exam: Accessory Muscle Use, Rales. absent: Respiratory Distress - Cardiovascular Exam Cardiovascular Exam: REGULAR RHYTHM, +S1, +S2 - GI/Abdominal Exam GI & Abdominal Exam: Soft, Normal Bowel Sounds. absent: Distended, Tenderness - Extremities Exam Extremities Exam: absent: Calf Tenderness, Pedal Edema Additional comments: muscle wasting b/l LE - Neurological Exam Neurological Exam: Alert, Awake - Psychiatric Exam Psychiatric exam: Flat Affect - Skin Skin Exam: Dry, Intact, Pallor, Warm Assessment and Plan - Assessment and Plan (Free Text) Assessment: 73 year old male w/ pmhx of CHF, COPD on home O2, CAD, A fib, PVD, HTN, HLD, and BPH admitted for evaluation and treatment of ICD discharge Plan: ICD Discharge - EP consult, Dr. Goddard Management: - AICD interrogated - shock 10 times total due to vtach/ vfib rhythm likely secondary to ischemia - Plan for cardiac cath 06/17/18 - Heparin drip d/c 06/15 and will transition to SC Sunday - Plan for Cardiac cath 06/17/18 Congestive heart failure (HFrEF) Exacerbation Imaging: - Echo 04/03/18: EF 20-25%, mod dialted LV, mild LVH, global hypokinesis LV, grade I diastolic dysfunction, biatrial enlargement, mild MR, mod TR, mild pulm HTN (42 mmHg), trace pericardial effusion - CXR:dense consolidative opacifications in the mid to lower lung zones. m oderate loculated b/l pleural effusions. cardiomegaly. atherosclerotic calcification in aorta. Management: - BiPAP PRN - NC PRN - NRB PRN - Lasix 40 mg IV Q12H - Lisinopril 10 mg PO daily - Metoprolol 50 mg PO q12 - Spironolactone 12.5 mg PO daily Chronic obstructive pulmonary disease - On home O2 - BiPAP PRN - NC PRN - NRB PRN - Duoneb Q4H [facility] Coronary artery disease - ASA 81 mg PO daily - Plavix 75 mg PO daily - Crestor 5mg po HS Paroxysmal atrial fibrillation - Eliquis 2.5mg PO BID - held - Amio 100mg po q12 Hypertension - Vitals Q6H - Lisinopril 10 mg PO daily - Metoprolol 50 mg PO q12 - Spironolactone 12.5 mg PO daily - Lasix 40 mg IV Q12H Hyperlipidemia - Crestor 5mg po HS Benign prostatic hypertrophy - Flomax 0.4 mg PO daily Ppx: VTE: SCDs contraindicated due to pedal edema, Heparin drip, will be transitioned to hep sc q8 GI: not indicated HHD Plan for Cardiac Catherization on Sunday06/17/18 Objective - Vital Signs/Intake and Output Vital Signs (last 24 hours): Temp Pulse Resp BP Pulse Ox 97.6 F 66 20 103/65 98 06/15/18 15:30 06/15/18 15:30 06/15/18 15:30 06/15/18 15:30 06/15/18 15:30 - Medications Medications: Current Medications Albuterol/Ipratropium (Duoneb 3 Mg/0.5 Mg (3 Ml) Ud) 3 ml INH RQ4 [facility] Last Admin: 06/15/18 20:19 Dose: 3 ml Amiodarone HCl (Cordarone) 100 mg PO Q12 [facility] Last Admin: 06/15/18 10:05 Dose: 100 mg Aspirin (Aspirin Chewable) 81 mg PO DAILY [facility] Last Admin: 06/15/18 10:07 Dose: 81 mg Clopidogrel Bisulfate (Plavix) 75 mg PO DAILY [facility] Last Admin: 06/15/18 10:06 Dose: 75 mg Furosemide (Lasix) 40 mg IVP Q12 [facility] Last Admin: 06/15/18 10:06 Dose: 40 mg Heparin Sodium (Porcine) (Heparin) 5,000 units SC Q8H [facility] Last Admin: 06/15/18 17:33 Dose: 5,000 units Isosorbide Mononitrate (Imdur) 60 mg PO DAILY [facility] Last Admin: 06/15/18 10:05 Dose: 60 mg Lisinopril (Zestril) 10 mg PO DAILY [facility] Last Admin: 06/15/18 10:05 Dose: 10 mg Metoprolol Tartrate (Lopressor) 50 mg PO Q12 [facility] Last Admin: 06/15/18 10:05 Dose: 50 mg Rosuvastatin Calcium (Crestor) 5 mg PO HS [facility] Last Admin: 06/14/18 21:32 Dose: 5 mg Spironolactone (Aldactone) 12.5 mg PO DAILY [facility] Last Admin: 06/15/18 10:05 Dose: 12.5 mg Tamsulosin HCl (Flomax) 0.4 mg PO DAILY [facility] Last Admin: 06/15/18 10:05 Dose: 0.4 mg Zolpidem Tartrate (Ambien) 5 mg PO HS PRN PRN Reason: sleeplessness Last Admin: 06/14/18 21:33 Dose: 5 mg - Labs Labs: 06/15/18 17:27 06/15/18 17:27 PT 11.4 SECONDS (9.7-12.2) 06/14/18 14:51 INR 1.0 06/14/18 14:51 APTT 69 SECONDS (21-34) H 06/14/18 14:51
[2018-06-16] MEDS: Albuterol-Ipratrop 3 mg / 0.5 (3 ml) UD INH SCH ×6 (00:56→20:28)
--- NOTE | 2018-06-16 07:03 | CP.PCM.PN ---
Subjective - Date & Time of Evaluation Date of Evaluation: 06/16/18 Time of Evaluation: 05:20 - Subjective Subjective: Patient examined at bedside. No acute events overnight. Pt is somnolent and when questioned, responds that he's just tired. Pt denies complaints including chest pain, SOB, nausea, difficulty voiding. Objective - Vital Signs/Intake and Output Vital Signs (last 24 hours): Temp Pulse Resp BP Pulse Ox 97.5 F L 67 20 119/66 95 06/16/18 00:20 06/16/18 00:27 06/16/18 00:20 06/16/18 00:20 06/16/18 00:20 - Medications Medications: Current Medications Albuterol/Ipratropium (Duoneb 3 Mg/0.5 Mg (3 Ml) Ud) 3 ml INH RQ4 [facility] Last Admin: 06/16/18 04:02 Dose: Not Given Amiodarone HCl (Cordarone) 100 mg PO Q12 [facility] Last Admin: 06/15/18 21:13 Dose: 100 mg Aspirin (Aspirin Chewable) 81 mg PO DAILY [facility] Last Admin: 06/15/18 10:07 Dose: 81 mg Clopidogrel Bisulfate (Plavix) 75 mg PO DAILY [facility] Last Admin: 06/15/18 10:06 Dose: 75 mg Furosemide (Lasix) 40 mg IVP Q12 [facility] Last Admin: 06/15/18 21:13 Dose: 40 mg Heparin Sodium (Porcine) (Heparin) 5,000 units SC Q8H [facility] Last Admin: 06/16/18 01:35 Dose: 5,000 units Isosorbide Mononitrate (Imdur) 60 mg PO DAILY [facility] Last Admin: 06/15/18 10:05 Dose: 60 mg Lisinopril (Zestril) 10 mg PO DAILY [facility] Last Admin: 06/15/18 10:05 Dose: 10 mg Metoprolol Tartrate (Lopressor) 50 mg PO Q12 [facility] Last Admin: 06/15/18 21:14 Dose: 50 mg Rosuvastatin Calcium (Crestor) 5 mg PO HS [facility] Last Admin: 06/15/18 21:13 Dose: 5 mg Spironolactone (Aldactone) 12.5 mg PO DAILY [facility] Last Admin: 06/15/18 10:05 Dose: 12.5 mg Tamsulosin HCl (Flomax) 0.4 mg PO DAILY [facility] Last Admin: 06/15/18 10:05 Dose: 0.4 mg Zolpidem Tartrate (Ambien) 5 mg PO HS PRN PRN Reason: sleeplessness Last Admin: 06/15/18 21:17 Dose: 5 mg - Labs Labs: 06/15/18 17:27 06/15/18 17:27 PT 11.4 SECONDS (9.7-12.2) 06/14/18 14:51 INR 1.0 06/14/18 14:51 APTT 69 SECONDS (21-34) H 06/14/18 14:51 - Additional Findings Additional findings: - Constitutional Appears: Non-toxic, No Acute Distress - Head Exam Head Exam: ATRAUMATIC, NORMAL INSPECTION, NORMOCEPHALIC - Eye Exam Eye Exam: EOMI, Normal appearance - ENT Exam ENT Exam: Mucous Membranes Moist, Normal Exam - Neck Exam Neck Exam: Normal Inspection - Respiratory Exam Respiratory Exam: Accessory Muscle Use, Rales. absent: Respiratory Distress - Cardiovascular Exam Cardiovascular Exam: REGULAR RHYTHM, +S1, +S2 - GI/Abdominal Exam GI & Abdominal Exam: Soft, Normal Bowel Sounds. absent: Distended, Tenderness - Extremities Exam Extremities Exam: absent: Calf Tenderness, Pedal Edema Additional comments: muscle wasting b/l LE - Neurological Exam Neurological Exam: Alert, Awake - Psychiatric Exam Psychiatric exam: Flat Affect - Skin Skin Exam: Dry, Intact, Pallor, Warm Assessment and Plan - Assessment and Plan (Free Text) Assessment: 73 year old male w/ pmhx of CHF, COPD on home O2, CAD, A fib, PVD, HTN, HLD, and BPH admitted for evaluation and treatment of ICD discharge Plan: ICD Discharge - Cardiology consult, Dr. Maddox - EP consult, Dr. Goddard Management: - AICD interrogated - shock 10 times total due to vtach/ vfib rhythm likely secondary to ischemia - Plan for cardiac cath 06/17/18 - Heparin drip d/c 06/15, started on heparin 5000 q8h - Plan for Cardiac cath 06/17/18 Congestive heart failure (HFrEF) Exacerbation Imaging: - Echo 04/03/18: EF 20-25%, mod dilted LV, mild LVH, global hypokinesis LV, grade I diastolic dysfunction, biatrial enlargement, mild MR, mod TR, mild pulm HTN (42 mmHg), trace pericardial effusion - CXR:dense consolidative opacifications in the mid to lower lung zones. moderate loculated b/l pleural effusions. cardiomegaly. atherosclerotic calcification in aorta. Management: - BiPAP PRN - NC PRN - NRB PRN - Lasix 40 mg IV Q12H - Lisinopril 10 mg PO daily - Metoprolol 50 mg PO q12 - Spironolactone 12.5 mg PO daily Chronic obstructive pulmonary disease - On home O2 - BiPAP PRN - NC PRN - NRB PRN - Duoneb Q4H [facility] Coronary artery disease - ASA 81 mg PO daily - Plavix 75 mg PO daily - Crestor 5mg po HS Paroxysmal atrial fibrillation - Eliquis 2.5mg PO BID - held - Amio 100mg po q12 Hypertension - Vitals Q6H - Lisinopril 10 mg PO daily - Metoprolol 50 mg PO q12 - Spironolactone 12.5 mg PO daily - Lasix 40 mg IV Q12H Hyperlipidemia - Crestor 5mg po HS Benign prostatic hypertrophy - Flomax 0.4 mg PO daily Ppx: VTE: SCDs contraindicated due to pedal edema, Heparin drip, will be transitioned to hep sc q8 GI: not indicated HHD Disposition: Plan for Cardiac Catheterization on Sunday06/17/[address] Maddox. -Mindi Shore, PGY-1
[2018-06-16 11:07] LABS: BASO # 0.1 K/uL (0.0-0.2); EOS # 0.2 K/uL (0.0-0.7); EOS % 2.9 % (0.0-4.0); HEMOGLOBIN 11.3 g/dL (12.0-18.0); LYMPH # 0.9 K/uL (1.0-4.3); LYMPH % 13.7 % (20.0-40.0); MEAN CELL VOLUME 88.9 fL (80.0-94.0); MEAN CORPUSCULAR HEMOGLOBIN 29.2 pg (27.0-31.0); MEAN CORPUSCULAR HGB CONC 32.9 g/dL (33.0-37.0); MEAN PLATELET VOLUME 10.2 fL (7.2-11.7); MONO # 0.9 K/uL (0.0-0.8); MONO % 13.8 % (0.0-10.0); NEUT # 4.6 K/uL (1.8-7.0); NEUT % 68.6 % (50.0-75.0); NRBC % 0.1 % (0.0-2.0); RBC 3.88 Mil/uL (4.40-5.90); RED CELL DISTRIBUTION WIDTH 15.3 % (11.5-14.5); WHITE BLOOD COUNT 6.7 K/uL (4.8-10.8)
[2018-06-16 11:31] LABS: ALB/GLOB RATIO 1.2 (1.0-2.1); ALBUMIN 3.5 g/dL (3.5-5.0); ALT/SGPT 20 U/L (21-72); AST/SGOT 45 U/L (17-59); BLOOD UREA NITROGEN 40 mg/dL (9-20); GFR NON-AFRICAN AMERICAN > 60
--- NOTE | 2018-06-16 23:31 | CP.PCM.PN ---
Subjective - Date & Time of Evaluation Date of Evaluation: 06/16/18 Time of Evaluation: 12:05 - Subjective Subjective: Patient seen and evaluated Denies chest pain and dyspnea Objective - Vital Signs/Intake and Output Vital Signs (last 24 hours): Temp Pulse Resp BP Pulse Ox 97.5 F L 67 20 119/66 95 06/16/18 00:20 06/16/18 00:27 06/16/18 00:20 06/16/18 00:20 06/16/18 00:20 - Medications Medications: Current Medications Albuterol/Ipratropium (Duoneb 3 Mg/0.5 Mg (3 Ml) Ud) 3 ml INH RQ4 [facility] Last Admin: 06/16/18 04:02 Dose: Not Given Amiodarone HCl (Cordarone) 100 mg PO Q12 [facility] Last Admin: 06/15/18 21:13 Dose: 100 mg Aspirin (Aspirin Chewable) 81 mg PO DAILY [facility] Last Admin: 06/15/18 10:07 Dose: 81 mg Clopidogrel Bisulfate (Plavix) 75 mg PO DAILY [facility] Last Admin: 06/15/18 10:06 Dose: 75 mg Furosemide (Lasix) 40 mg IVP Q12 [facility] Last Admin: 06/15/18 21:13 Dose: 40 mg Heparin Sodium (Porcine) (Heparin) 5,000 units SC Q8H [facility] Last Admin: 06/16/18 01:35 Dose: 5,000 units Isosorbide Mononitrate (Imdur) 60 mg PO DAILY [facility] Last Admin: 06/15/18 10:05 Dose: 60 mg Lisinopril (Zestril) 10 mg PO DAILY [facility] Last Admin: 06/15/18 10:05 Dose: 10 mg Metoprolol Tartrate (Lopressor) 50 mg PO Q12 [facility] Last Admin: 06/15/18 21:14 Dose: 50 mg Rosuvastatin Calcium (Crestor) 5 mg PO HS [facility] Last Admin: 06/15/18 21:13 Dose: 5 mg Spironolactone (Aldactone) 12.5 mg PO DAILY [facility] Last Admin: 06/15/18 10:05 Dose: 12.5 mg Tamsulosin HCl (Flomax) 0.4 mg PO DAILY [facility] Last Admin: 06/15/18 10:05 Dose: 0.4 mg Zolpidem Tartrate (Ambien) 5 mg PO HS PRN PRN Reason: sleeplessness Last Admin: 06/15/18 21:17 Dose: 5 mg - Labs Labs: 06/15/18 17:27 06/15/18 17:27 PT 11.4 SECONDS (9.7-12.2) 06/14/18 14:51 INR 1.0 06/14/18 14:51 APTT 69 SECONDS (21-34) H 06/14/18 14:51 - Additional Findings Additional findings: - Constitutional Appears: Non-toxic, No Acute Distress - Head Exam Head Exam: ATRAUMATIC, NORMAL INSPECTION, NORMOCEPHALIC - Eye Exam Eye Exam: EOMI, Normal appearance - ENT Exam ENT Exam: Mucous Membranes Moist, Normal Exam - Neck Exam Neck Exam: Normal Inspection - Respiratory Exam Respiratory Exam: Accessory Muscle Use, Rales. absent: Respiratory Distress - Cardiovascular Exam Cardiovascular Exam: REGULAR RHYTHM, +S1, +S2 - GI/Abdominal Exam GI & Abdominal Exam: Soft, Normal Bowel Sounds. absent: Distended, Tenderness - Extremities Exam Extremities Exam: absent: Calf Tenderness, Pedal Edema Additional comments: muscle wasting b/l LE - Neurological Exam Neurological Exam: Alert, Awake - Psychiatric Exam Psychiatric exam: Flat Affect - Skin Skin Exam: Dry, Intact, Pallor, Warm Assessment and Plan - Assessment and Plan (Free Text) Assessment: 73 year old male w/ pmhx of CHF, COPD on home O2, CAD, A fib, PVD, HTN, HLD, and BPH admitted for evaluation and treatment of ICD discharge Plan: ICD Discharge - EP consult, Dr. Goddard Management: - AICD interrogated - shock 10 times total due to vtach/ vfib rhythm likely secondary to ischemia - Plan for cardiac cath 06/17/18 - Heparin drip d/c 06/15, started on heparin 5000 q8h - Plan for Cardiac cath 06/17/18 Congestive heart failure (HFrEF) Exacerbation Imaging: - Echo 04/03/18: EF 20-25%, mod dilted LV, mild LVH, global hypokinesis LV, grade I diastolic dysfunction, biatrial enlargement, mild MR, mod TR, mild pulm HTN (42 mmHg), trace pericardial effusion - CXR:dense consolidative opacifications in the mid to lower lung zones. moderate loculated b/l pleural effusions. cardiomegaly. atherosclerotic calcification in aorta. Management: - BiPAP PRN - NC PRN - NRB PRN - Lasix 40 mg IV Q12H - Lisinopril 10 mg PO daily - Metoprolol 50 mg PO q12 - Spironolactone 12.5 mg PO daily Chronic obstructive pulmonary disease - On home O2 - BiPAP PRN - NC PRN - NRB PRN - Duoneb Q4H [facility] Coronary artery disease - ASA 81 mg PO daily - Plavix 75 mg PO daily - Crestor 5mg po HS Paroxysmal atrial fibrillation - Eliquis 2.5mg PO BID - held - Amio 100mg po q12 Hypertension - Vitals Q6H - Lisinopril 10 mg PO daily - Metoprolol 50 mg PO q12 - Spironolactone 12.5 mg PO daily - Lasix 40 mg IV Q12H Hyperlipidemia - Crestor 5mg po HS Benign prostatic hypertrophy - Flomax 0.4 mg PO daily Ppx: VTE: SCDs contraindicated due to pedal edema, Heparin drip, will be transitioned to hep sc q8 GI: not indicated HHD Disposition: Plan for Cardiac Catheterization on Sunday06/17/18. Objective - Vital Signs/Intake and Output Vital Signs (last 24 hours): Temp Pulse Resp BP Pulse Ox 97.6 F 83 20 112/76 95 06/16/18 15:53 06/16/18 15:53 06/16/18 15:53 06/16/18 22:09 06/16/18 15:53 - Medications Medications: Current Medications Albuterol/Ipratropium (Duoneb 3 Mg/0.5 Mg (3 Ml) Ud) 3 ml INH RQ4 [facility] Last Admin: 06/16/18 20:28 Dose: 3 ml Amiodarone HCl (Cordarone) 100 mg PO Q12 [facility] Last Admin: 06/16/18 22:08 Dose: 100 mg Aspirin (Aspirin Chewable) 81 mg PO DAILY [facility] Last Admin: 06/16/18 10:24 Dose: 81 mg Clopidogrel Bisulfate (Plavix) 75 mg PO DAILY [facility] Last Admin: 06/16/18 10:24 Dose: 75 mg Furosemide (Lasix) 40 mg IVP Q12 [facility] Last Admin: 06/16/18 22:09 Dose: 40 mg Heparin Sodium (Porcine) (Heparin) 5,000 units SC Q8H [facility] Last Admin: 06/16/18 18:09 Dose: 5,000 units Isosorbide Mononitrate (Imdur) 60 mg PO DAILY [facility] Last Admin: 06/16/18 10:24 Dose: 60 mg Lisinopril (Zestril) 10 mg PO DAILY [facility] Last Admin: 06/16/18 10:24 Dose: 10 mg Metoprolol Tartrate (Lopressor) 50 mg PO Q12 [facility] Last Admin: 06/16/18 22:09 Dose: 50 mg Rosuvastatin Calcium (Crestor) 5 mg PO HS [facility] Last Admin: 06/16/18 22:09 Dose: 5 mg Spironolactone (Aldactone) 12.5 mg PO DAILY [facility] Last Admin: 06/16/18 10:23 Dose: 12.5 mg Tamsulosin HCl (Flomax) 0.4 mg PO DAILY [facility] Last Admin: 06/16/18 10:24 Dose: 0.4 mg Zolpidem Tartrate (Ambien) 5 mg PO HS PRN PRN Reason: sleeplessness Last Admin: 06/16/18 22:09 Dose: 5 mg - Labs Labs: 06/16/18 10:58 06/16/18 10:58 PT 11.4 SECONDS (9.7-12.2) 06/14/18 14:51 INR 1.0 06/14/18 14:51 APTT 69 SECONDS (21-34) H 06/14/18 14:51
[2018-06-17] MEDS: Albuterol-Ipratrop 3 mg / 0.5 (3 ml) UD INH SCH ×6 (01:46→20:36)
--- NOTE | 2018-06-17 07:00 | CP.PCM.PN ---
Subjective - Date & Time of Evaluation Date of Evaluation: 06/17/18 Time of Evaluation: 07:35 - Subjective Subjective: Patient examined at bedside. No acute events overnight. Per nursing, pt refused morning lab work. Pt understands he is going for cardiac cath today and confirms he has been NPO for procedure. Pt reports left upper chest pain, similar to days prior. Denies worsening SOB. Pt reports he has been urinating well and having normal BMs. Objective - Vital Signs/Intake and Output Vital Signs (last 24 hours): Temp Pulse Resp BP Pulse Ox 97.9 F 66 20 150/84 98 06/16/18 23:20 06/17/18 03:10 06/16/18 23:20 06/16/18 23:20 06/16/18 23:20 - Medications Medications: Current Medications Albuterol/Ipratropium (Duoneb 3 Mg/0.5 Mg (3 Ml) Ud) 3 ml INH RQ4 [facility] Last Admin: 06/17/18 04:30 Dose: Not Given Amiodarone HCl (Cordarone) 100 mg PO Q12 [facility] Last Admin: 06/16/18 22:08 Dose: 100 mg Aspirin (Aspirin Chewable) 81 mg PO DAILY [facility] Last Admin: 06/16/18 10:24 Dose: 81 mg Clopidogrel Bisulfate (Plavix) 75 mg PO DAILY [facility] Last Admin: 06/16/18 10:24 Dose: 75 mg Furosemide (Lasix) 40 mg IVP Q12 [facility] Last Admin: 06/16/18 22:09 Dose: 40 mg Heparin Sodium (Porcine) (Heparin) 5,000 units SC Q8H [facility] Last Admin: 06/17/18 01:00 Dose: 5,000 units Isosorbide Mononitrate (Imdur) 60 mg PO DAILY [facility] Last Admin: 06/16/18 10:24 Dose: 60 mg Lisinopril (Zestril) 10 mg PO DAILY [facility] Last Admin: 06/16/18 10:24 Dose: 10 mg Metoprolol Tartrate (Lopressor) 50 mg PO Q12 [facility] Last Admin: 06/16/18 22:09 Dose: 50 mg Rosuvastatin Calcium (Crestor) 5 mg PO HS [facility] Last Admin: 06/16/18 22:09 Dose: 5 mg Spironolactone (Aldactone) 12.5 mg PO DAILY [facility] Last Admin: 06/16/18 10:23 Dose: 12.5 mg Tamsulosin HCl (Flomax) 0.4 mg PO DAILY [facility] Last Admin: 06/16/18 10:24 Dose: 0.4 mg Zolpidem Tartrate (Ambien) 5 mg PO HS PRN PRN Reason: sleeplessness Last Admin: 06/16/18 22:09 Dose: 5 mg - Labs Labs: 06/16/18 10:58 06/16/18 10:58 PT 11.4 SECONDS (9.7-12.2) 06/14/18 14:51 INR 1.0 06/14/18 14:51 APTT 69 SECONDS (21-34) H 06/14/18 14:51 - Constitutional Appears: Non-toxic, No Acute Distress, Chronically Ill - Head Exam Head Exam: ATRAUMATIC, NORMAL INSPECTION, NORMOCEPHALIC - Eye Exam Eye Exam: EOMI, Normal appearance - ENT Exam ENT Exam: Mucous Membranes Moist, Normal Exam - Neck Exam Neck Exam: Normal Inspection - Respiratory Exam Respiratory Exam: Accessory Muscle Use, Rales (right lower). absent: Respiratory Distress, NORMAL BREATHING PATTERN (tachypneic) - Cardiovascular Exam Cardiovascular Exam: REGULAR RHYTHM. absent: Tachycardia - GI/Abdominal Exam GI & Abdominal Exam: Soft, Normal Bowel Sounds. absent: Distended, Tenderness - Neurological Exam Neurological Exam: Alert, Awake - Psychiatric Exam Psychiatric exam: Flat Affect, Normal Affect, Normal Mood - Skin Skin Exam: Dry, Intact, Pallor, Warm. absent: Cyanosis Assessment and Plan - Assessment and Plan (Free Text) Assessment: 73 year old male w/ pmhx of CHF, COPD on home O2, CAD, A fib, PVD, HTN, HLD, and BPH admitted for evaluation and treatment of ICD discharge Plan: ICD Discharge, acute - Cardiology consult, Dr. Maddox - EP consult, Dr. Goddard Management: - AICD interrogated - shock 10 times total due to vtach/ vfib rhythm likely secondary to ischemia - For cardiac cath today, 06/17/18 - Heparin drip d/c 06/15, 06/15 started on heparin 5000 q8h Congestive heart failure (HFrEF) Exacerbation Imaging: - Echo 04/03/18: EF 20-25%, mod dilated LV, mild LVH, global hypokinesis LV, grade I diastolic dysfunction, biatrial enlargement, mild MR, mod TR, mild pulm HTN (42 mmHg), trace pericardial effusion - CXR: dense consolidative opacifications in the mid to lower lung zones. moderate loculated b/l pleural effusions. cardiomegaly. atherosclerotic calcification in aorta. - f/u, new CXR ordered for today based on worsening of rales on physical exam Management: - BiPAP PRN - NC PRN - NRB PRN - Lasix 40 mg IV Q12H - Lisinopril 10 mg PO daily - Metoprolol 50 mg PO q12 - Spironolactone 12.5 mg PO daily COPD - On home O2 - BiPAP PRN - NC PRN - NRB PRN - Duoneb Q4H [facility] Coronary artery disease - ASA 81 mg PO daily - Plavix 75 mg PO daily - Crestor 5mg po HS Paroxysmal atrial fibrillation - Eliquis 2.5mg PO BID - held - Amio 100mg po q12 Hypertension - Vitals Q6H - Lisinopril 10 mg PO daily - Metoprolol 50 mg PO q12 - Spironolactone 12.5 mg PO daily - Lasix 40 mg IV Q12H Hyperlipidemia - Crestor 5mg po HS Benign prostatic hypertrophy - Flomax 0.4 mg PO daily Ppx: VTE: Heparin 5000 q8 GI: not indicated HHD, currently NPO for cath Disposition: f/y Cardiac Catheterization today with Dr. Maddox. Discussed with Dr. Carlos Shore, PGY-1
[2018-06-17] MEDS ORDERED: DiphenhydrAMINE 50 mg/ml Inj ONE (08:34)
[2018-06-17 09:19] LABS: BLOOD UREA NITROGEN 42 mg/dL (9-20); CALCIUM 9.2 mg/dl (8.6-10.4); GFR NON-AFRICAN AMERICAN 59
[2018-06-17] MEDS ORDERED: Iodixanol 320 MG/ML 100 ML BOTTLE IV ONE (09:47)
[2018-06-17] MEDS ORDERED: Lidocaine Hydrochloride 10 ML INJ ONE (09:49)
[2018-06-17] MEDS ORDERED: Midazolam 2 MG/2 ML VIAL ONE (10:14)
--- NOTE | 2018-06-17 10:47 | CP.PCM.PN ---
Subjective - Date & Time of Evaluation Date of Evaluation: 06/17/18 Time of Evaluation: 10:45 - Subjective Subjective: Patient s/p Cardiac cath 1. Non Obstructive Coronaries 2. Dilated Non ischemic CMP with EF of 20%, EDP 22 Troponin release secondary to shocks Arrhythmia mgt as per Dr. Goddard Ambulate after 2pm today CHF mgt Objective - Vital Signs/Intake and Output Vital Signs (last 24 hours): Temp Pulse Resp BP Pulse Ox 97.4 F L 86 18 138/78 95 06/17/18 07:00 06/17/18 07:45 06/17/18 07:00 06/17/18 07:00 06/17/18 07:00 - Medications Medications: Current Medications Albuterol/Ipratropium (Duoneb 3 Mg/0.5 Mg (3 Ml) Ud) 3 ml INH RQ4 COUNT INCLUDES THE [facility] Last Admin: 06/17/18 04:30 Dose: Not Given Amiodarone HCl (Cordarone) 100 mg PO Q12 COUNT INCLUDES THE [facility] Last Admin: 06/16/18 22:08 Dose: 100 mg Aspirin (Aspirin Chewable) 81 mg PO DAILY COUNT INCLUDES THE [facility] Last Admin: 06/16/18 10:24 Dose: 81 mg Clopidogrel Bisulfate (Plavix) 75 mg PO DAILY COUNT INCLUDES THE [facility] Last Admin: 06/16/18 10:24 Dose: 75 mg Furosemide (Lasix) 40 mg IVP Q12 COUNT INCLUDES THE [facility] Last Admin: 06/16/18 22:09 Dose: 40 mg Heparin Sodium (Porcine) (Heparin) 5,000 units SC Q8H COUNT INCLUDES THE [facility] Last Admin: 06/17/18 01:00 Dose: 5,000 units Isosorbide Mononitrate (Imdur) 60 mg PO DAILY COUNT INCLUDES THE [facility] Last Admin: 06/16/18 10:24 Dose: 60 mg Lisinopril (Zestril) 10 mg PO DAILY COUNT INCLUDES THE [facility] Last Admin: 06/16/18 10:24 Dose: 10 mg Metoprolol Tartrate (Lopressor) 50 mg PO Q12 COUNT INCLUDES THE [facility] Last Admin: 06/16/18 22:09 Dose: 50 mg Rosuvastatin Calcium (Crestor) 5 mg PO HS COUNT INCLUDES THE [facility] Last Admin: 06/16/18 22:09 Dose: 5 mg Spironolactone (Aldactone) 12.5 mg PO DAILY COUNT INCLUDES THE [facility] Last Admin: 06/16/18 10:23 Dose: 12.5 mg Tamsulosin HCl (Flomax) 0.4 mg PO DAILY [facility] Last Admin: 06/16/18 10:24 Dose: 0.4 mg Zolpidem Tartrate (Ambien) 5 mg PO HS PRN PRN Reason: sleeplessness Last Admin: 06/16/18 22:09 Dose: 5 mg - Labs Labs: 06/16/18 10:58 06/17/18 08:54 PT 11.4 SECONDS (9.7-12.2) 06/14/18 14:51 INR 1.0 06/14/18 14:51 APTT 69 SECONDS (21-34) H 06/14/18 14:51
[2018-06-17 16:17] VITALS: RESP 20
--- NOTE | 2018-06-17 18:40 | RAD ---
Date of service: 06/17/2018 HISTORY: worsening rales on physical exam COMPARISON: 06/12/2018. FINDINGS: LUNGS: Stable lower lobe consolidative changes. PLEURA: Stable pleural effusions. CARDIOVASCULAR: Atherosclerotic calcifications identified primarily aortic arch. No radiographic findings to suggest acute or significant cardiovascular disease. Position/ configuration of pacemaker OSSEOUS STRUCTURES: No significant abnormalities. VISUALIZED UPPER ABDOMEN: Normal. OTHER FINDINGS: None. IMPRESSION: No significant interval change compared to the prior examination(s).
[2018-06-18] MEDS: Albuterol-Ipratrop 3 mg / 0.5 (3 ml) UD INH SCH ×7 (00:37→23:46)
--- NOTE | 2018-06-18 14:45 | CP.PCM.PN ---
Subjective - Date & Time of Evaluation Date of Evaluation: 06/18/18 Time of Evaluation: 14:44 - Subjective Subjective: DR GONZALEZ SERVICE Pt s/e at bedside, denies cp sob fc nv, no pain at site eof cath, no acute events overnight as per nursing, pt to be dc tmrw pt agrees Objective - Vital Signs/Intake and Output Vital Signs (last 24 hours): Temp Pulse Resp BP Pulse Ox 97.9 F 98 H 20 122/71 94 L 06/18/18 08:49 06/18/18 08:49 06/18/18 08:49 06/18/18 11:48 06/18/18 08:49 Intake and Output: 06/18/18 06/18/18 06:59 18:59 Intake Total 120 Balance 120 - Medications Medications: Current Medications Albuterol/Ipratropium (Duoneb 3 Mg/0.5 Mg (3 Ml) Ud) 3 ml INH RQ4 [facility]END[facility] TO [facility] Last Admin: 06/18/18 14:16 Dose: 3 ml Amiodarone HCl (Cordarone) 100 mg PO Q12 [facility] Last Admin: 06/18/18 11:47 Dose: 100 mg Aspirin (Aspirin Chewable) 81 mg PO DAILY [facility] Last Admin: 06/18/18 11:49 Dose: 81 mg Furosemide (Lasix) 40 mg IVP Q12 [facility] Last Admin: 06/18/18 11:48 Dose: 40 mg Heparin Sodium (Porcine) (Heparin) 5,000 units SC Q8H [facility] Last Admin: 06/18/18 11:48 Dose: 5,000 units Isosorbide Mononitrate (Imdur) 60 mg PO DAILY [facility] Last Admin: 06/18/18 11:48 Dose: 60 mg Lisinopril (Zestril) 10 mg PO DAILY [facility] Last Admin: 06/18/18 11:49 Dose: 10 mg Metoprolol Tartrate (Lopressor) 50 mg PO Q12 [facility] Last Admin: 06/18/18 11:51 Dose: 50 mg Rosuvastatin Calcium (Crestor) 5 mg PO HS [facility] Last Admin: 06/17/18 21:38 Dose: 5 mg Spironolactone (Aldactone) 12.5 mg PO DAILY [facility] Last Admin: 06/18/18 11:47 Dose: 12.5 mg Tamsulosin HCl (Flomax) 0.4 mg PO DAILY [facility] Last Admin: 06/18/18 11:49 Dose: 0.4 mg Zolpidem Tartrate (Ambien) 5 mg PO HS PRN PRN Reason: sleeplessness Last Admin: 06/17/18 21:38 Dose: 5 mg - Labs Labs: 06/16/18 10:58 06/17/18 08:54 PT 11.4 SECONDS (9.7-12.2) 06/14/18 14:51 INR 1.0 06/14/18 14:51 APTT 69 SECONDS (21-34) H 06/14/18 14:51 - Additional Findings Additional findings: - Constitutional Appears: Non-toxic, No Acute Distress, Chronically Ill - Head Exam Head Exam: ATRAUMATIC, NORMAL INSPECTION, NORMOCEPHALIC - Eye Exam Eye Exam: EOMI, Normal appearance - ENT Exam ENT Exam: Mucous Membranes Moist, Normal Exam - Neck Exam Neck Exam: Normal Inspection - Respiratory Exam Respiratory Exam: Accessory Muscle Use, Rales (right lower). absent: Respiratory Distress, NORMAL BREATHING PATTERN (tachypneic) - Cardiovascular Exam Cardiovascular Exam: REGULAR RHYTHM. absent: Tachycardia - GI/Abdominal Exam GI & Abdominal Exam: Soft, Normal Bowel Sounds. absent: Distended, Tenderness - Neurological Exam Neurological Exam: Alert, Awake - Psychiatric Exam Psychiatric exam: Flat Affect, Normal Affect, Normal Mood - Skin Skin Exam: Dry, Intact, Pallor, Warm. absent: Cyanosis Assessment and Plan - Assessment and Plan (Free Text) Assessment: 73 year old male w/ pmhx of CHF, COPD on home O2, CAD, A fib, PVD, HTN, HLD, and BPH admitted for evaluation and treatment of ICD discharge Plan: ICD Discharge, acute - Cardiology consult, Dr. Maddox cath shows EF 20% End Diast Pre 22 - EP consult, Dr. Goddard Management: - AICD interrogated - shock 10 times total due to vtach/ vfib rhythm likely secondary to ischemia - For cardiac cath today, 06/17/18 - Heparin drip d/c 06/15, 06/15 started on heparin 5000 q8h Congestive heart failure (HFrEF) Exacerbation Imaging: - Echo 04/03/18: EF 20-25%, mod dilated LV, mild LVH, global hypokinesis LV, grade I diastolic dysfunction, biatrial enlargement, mild MR, mod TR, mild pulm HTN (42 mmHg), trace pericardial effusion - CXR: dense consolidative opacifications in the mid to lower lung zones. moderate loculated b/l pleural effusions. cardiomegaly. atherosclerotic calcification in aorta. - f/u, new CXR ordered for today based on worsening of rales on physical exam Management: - BiPAP PRN - NC PRN - NRB PRN - Lasix 40 mg IV Q12H - Lisinopril 10 mg PO daily - Metoprolol 50 mg PO q12 - Spironolactone 12.5 mg PO daily COPD - On home O2 - BiPAP PRN - NC PRN - NRB PRN - Duoneb Q4H [facility] Coronary artery disease - ASA 81 mg PO daily - Plavix 75 mg PO daily - Crestor 5mg po HS Paroxysmal atrial fibrillation - Eliquis 2.5mg PO BID - held - Amio 100mg po q12 Hypertension - Vitals Q6H - Lisinopril 10 mg PO daily - Metoprolol 50 mg PO q12 - Spironolactone 12.5 mg PO daily - Lasix 40 mg IV Q12H Hyperlipidemia - Crestor 5mg po HS Benign prostatic hypertrophy - Flomax 0.4 mg PO daily Ppx: VTE: Heparin 5000 q8 GI: not indicated HHD, currently NPO for cath Disposition: f/y Cardiac Catheterization today with Dr. Maddox. Discussed with Dr. Gonzalez
--- NOTE | 2018-06-19 | CP.PCM.PN ---
Subjective - Date & Time of Evaluation Date of Evaluation: 06/18/18 Time of Evaluation: 20:30 - Subjective Subjective: Pt seen and evaluated Comfortable Objective - Vital Signs/Intake and Output Vital Signs (last 24 hours): Temp Pulse Resp BP Pulse Ox 97.9 F 98 H 20 122/71 94 L 06/18/18 08:49 06/18/18 08:49 06/18/18 08:49 06/18/18 11:48 06/18/18 08:49 Intake and Output: 06/18/18 06/18/18 06:59 18:59 Intake Total 120 Balance 120 - Medications Medications: Current Medications Albuterol/Ipratropium (Duoneb 3 Mg/0.5 Mg (3 Ml) Ud) 3 ml INH RQ4 [facility] Last Admin: 06/18/18 14:16 Dose: 3 ml Amiodarone HCl (Cordarone) 100 mg PO Q12 [facility] Last Admin: 06/18/18 11:47 Dose: 100 mg Aspirin (Aspirin Chewable) 81 mg PO DAILY [facility] Last Admin: 06/18/18 11:49 Dose: 81 mg Furosemide (Lasix) 40 mg IVP Q12 [facility] Last Admin: 06/18/18 11:48 Dose: 40 mg Heparin Sodium (Porcine) (Heparin) 5,000 units SC Q8H [facility] Last Admin: 06/18/18 11:48 Dose: 5,000 units Isosorbide Mononitrate (Imdur) 60 mg PO DAILY [facility] Last Admin: 06/18/18 11:48 Dose: 60 mg Lisinopril (Zestril) 10 mg PO DAILY [facility] Last Admin: 06/18/18 11:49 Dose: 10 mg Metoprolol Tartrate (Lopressor) 50 mg PO Q12 [facility] Last Admin: 06/18/18 11:51 Dose: 50 mg Rosuvastatin Calcium (Crestor) 5 mg PO HS [facility] Last Admin: 06/17/18 21:38 Dose: 5 mg Spironolactone (Aldactone) 12.5 mg PO DAILY [facility] Last Admin: 06/18/18 11:47 Dose: 12.5 mg Tamsulosin HCl (Flomax) 0.4 mg PO DAILY [facility] Last Admin: 06/18/18 11:49 Dose: 0.4 mg Zolpidem Tartrate (Ambien) 5 mg PO HS PRN PRN Reason: sleeplessness Last Admin: 06/17/18 21:38 Dose: 5 mg - Labs Labs: 06/16/18 10:58 06/17/18 08:54 PT 11.4 SECONDS (9.7-12.2) 06/14/18 14:51 INR 1.0 06/14/18 14:51 APTT 69 SECONDS (21-34) H 06/14/18 14:51 - Additional Findings Additional findings: - Constitutional Appears: Non-toxic, No Acute Distress, Chronically Ill - Head Exam Head Exam: ATRAUMATIC, NORMAL INSPECTION, NORMOCEPHALIC - Eye Exam Eye Exam: EOMI, Normal appearance - ENT Exam ENT Exam: Mucous Membranes Moist, Normal Exam - Neck Exam Neck Exam: Normal Inspection - Respiratory Exam Respiratory Exam: Accessory Muscle Use, Rales (right lower). absent: Respir atory Distress, NORMAL BREATHING PATTERN (tachypneic) - Cardiovascular Exam Cardiovascular Exam: REGULAR RHYTHM. absent: Tachycardia - GI/Abdominal Exam GI & Abdominal Exam: Soft, Normal Bowel Sounds. absent: Distended, Tenderness - Neurological Exam Neurological Exam: Alert, Awake - Psychiatric Exam Psychiatric exam: Flat Affect, Normal Affect, Normal Mood - Skin Skin Exam: Dry, Intact, Pallor, Warm. absent: Cyanosis Assessment and Plan - Assessment and Plan (Free Text) Assessment: 73 year old male w/ pmhx of CHF, COPD on home O2, CAD, A fib, PVD, HTN, HLD, and BPH admitted for evaluation and treatment of ICD discharge Plan: ICD Discharge, acute cath shows Non obstructive coronaries, EF 20% - EP consult, Dr. Goddard Management: - AICD interrogated - shock 10 times total due to vtach/ vfib rhythm likely secondary to ischemia - For cardiac cath today, 06/17/18 - Heparin drip d/c 06/15, 06/15 started on heparin 5000 q8h Congestive heart failure (HFrEF) Exacerbation Imaging: - Echo 04/03/18: EF 20-25%, mod dilated LV, mild LVH, global hypokinesis LV, grade I diastolic dysfunction, biatrial enlargement, mild MR, mod TR, mild pulm HTN (42 mmHg), trace pericardial effusion - CXR: dense consolidative opacifications in the mid to lower lung zones. moderate loculated b/l pleural effusions. cardiomegaly. atherosclerotic calcification in aorta. - f/u, new CXR ordered for today based on worsening of rales on physical exam Management: - BiPAP PRN - NC PRN - NRB PRN - Lasix 40 mg IV Q12H - Lisinopril 10 mg PO daily - Metoprolol 50 mg PO q12 - Spironolactone 12.5 mg PO daily COPD - On home O2 - BiPAP PRN - NC PRN - NRB PRN - Duoneb Q4H [facility] Coronary artery disease - ASA 81 mg PO daily - Plavix 75 mg PO daily - Crestor 5mg po HS Paroxysmal atrial fibrillation - Eliquis 2.5mg PO BID - held - Amio 100mg po q12 Hypertension - Vitals Q6H - Lisinopril 10 mg PO daily - Metoprolol 50 mg PO q12 - Spironolactone 12.5 mg PO daily - Lasix 40 mg IV Q12H Hyperlipidemia - Crestor 5mg po HS Benign prostatic hypertrophy - Flomax 0.4 mg PO daily Ppx: VTE: Heparin 5000 q8 Stop SC Heparin Resume Eliquis for A Fib Objective - Vital Signs/Intake and Output Vital Signs (last 24 hours): Temp Pulse Resp BP Pulse Ox 98.2 F 89 20 133/75 98 06/18/18 15:00 06/18/18 21:02 06/18/18 21:02 06/18/18 22:16 06/18/18 21:02 - Medications Medications: Current Medications Albuterol/Ipratropium (Duoneb 3 Mg/0.5 Mg (3 Ml) Ud) 3 ml INH RQ4 [facility] Last Admin: 06/18/18 23:46 Dose: 3 ml Amiodarone HCl (Cordarone) 100 mg PO Q12 [facility] Last Admin: 06/18/18 22:14 Dose: 100 mg Aspirin (Aspirin Chewable) 81 mg PO DAILY [facility] Last Admin: 06/18/18 11:49 Dose: 81 mg Furosemide (Lasix) 40 mg IVP Q12 [facility] Last Admin: 06/18/18 22:16 Dose: 40 mg Heparin Sodium (Porcine) (Heparin) 5,000 units SC Q8H [facility] Last Admin: 06/18/18 21:00 Dose: 5,000 units Isosorbide Mononitrate (Imdur) 60 mg PO DAILY [facility] Last Admin: 06/18/18 11:48 Dose: 60 mg Lisinopril (Zestril) 10 mg PO DAILY [facility] Last Admin: 06/18/18 11:49 Dose: 10 mg Metoprolol Tartrate (Lopressor) 50 mg PO Q12 [facility] Last Admin: 06/18/18 21:03 Dose: Not Given Rosuvastatin Calcium (Crestor) 5 mg PO HS [facility] Last Admin: 06/18/18 21:00 Dose: 5 mg Spironolactone (Aldactone) 12.5 mg PO DAILY [facility] Last Admin: 06/18/18 11:47 Dose: 12.5 mg Tamsulosin HCl (Flomax) 0.4 mg PO DAILY [facility] Last Admin: 06/18/18 11:49 Dose: 0.4 mg Zolpidem Tartrate (Ambien) 5 mg PO HS PRN PRN Reason: sleeplessness Last Admin: 06/18/18 22:14 Dose: 5 mg - Labs Labs: 06/16/18 10:58 06/17/18 08:54 PT 11.4 SECONDS (9.7-12.2) 06/14/18 14:51 INR 1.0 06/14/18 14:51 APTT 69 SECONDS (21-34) H 06/14/18 14:51
[2018-06-19] MEDS: Albuterol-Ipratrop 3 mg / 0.5 (3 ml) UD INH SCH ×3 (03:26→13:10)
[2018-06-19 07:43] VITALS: TEMP 97.6; O2SAT 98
[2018-06-19 07:50] VITALS: PULSE 86
--- NOTE | 2018-06-19 09:53 | CP.PCM.DIS ---
Provider - Provider Date of Admission: 06/12/18 15:31 Attending physician: Warren Gonzalez Jr, MD Consults: 06/12/18 15:47 Cardiology Consult Stat Comment: Consulting Provider: Corey Maddox Consulting Physician: Corey Maddox Reason for Consult: chf exacerbation, aicd went of x3 06/12/18 15:53 Cardiology Consult Stat Comment: Consulting Provider: Virgilio Goddard Consulting Physician: Virgilio Goddard Reason for Consult: AICD went off x3, CHF exacerbation Hospital Course - Lab Results Lab Results: Most Recent Lab Values WBC 6.7 K/uL (4.8-10.8) 06/16/18 10:58 RBC 3.88 Mil/uL (4.40-5.90) L 06/16/18 10:58 Hgb 11.3 g/dL (12.0-18.0) L 06/16/18 10:58 Hct 34.4 % (35.0-51.0) L 06/16/18 10:58 MCV 88.9 fL (80.0-94.0) 06/16/18 10:58 MCH 29.2 pg (27.0-31.0) 06/16/18 10:58 MCHC 32.9 g/dL (33.0-37.0) L 06/16/18 10:58 RDW 15.3 % (11.5-14.5) H 06/16/18 10:58 Plt Count 218 K/uL (130-400) 06/16/18 10:58 MPV 10.2 fL (7.2-11.7) 06/16/18 10:58 Neut % (Auto) 68.6 % (50.0-75.0) 06/16/18 10:58 Lymph % (Auto) 13.7 % (20.0-40.0) L 06/16/18 10:58 [place] % (Auto) 13.8 % (0.0-10.0) H 06/16/18 10:58 Eos % (Auto) 2.9 % (0.0-4.0) 06/16/18 10:58 Baso % (Auto) 1.0 % (0.0-2.0) 06/16/18 10:58 Neut # (Auto) 4.6 K/uL (1.8-7.0) 06/16/18 10:58 Lymph # (Auto) 0.9 K/uL (1.0-4.3) L 06/16/18 10:58 [place] # (Auto) 0.9 K/uL (0.0-0.8) H 06/16/18 10:58 Eos # (Auto) 0.2 K/uL (0.0-0.7) 06/16/18 10:58 Baso # (Auto) 0.1 K/uL (0.0-0.2) 06/16/18 10:58 PT 11.4 SECONDS (9.7-12.2) 06/14/18 14:51 INR 1.0 06/14/18 14:51 APTT 69 SECONDS (21-34) H 06/14/18 14:51 Sodium 136 mmol/L (132-148) 06/17/18 08:54 Potassium 4.8 mmol/L (3.6-5.2) 06/17/18 08:54 Chloride 97 mmol/L (98-107) L 06/17/18 08:54 Carbon Dioxide 38 mmol/L (22-30) H 06/17/18 08:54 Anion Gap 6 (10-20) L 06/17/18 08:54 BUN 42 mg/dL (9-20) H 06/17/18 08:54 Creatinine 1.2 mg/dL (0.8-1.5) 06/17/18 08:54 Est GFR ( Amer) > 60 06/17/18 08:54 Est GFR (Non-Af Amer) 59 06/17/18 08:54 POC Glucose (mg/dL) 113 mg/dL (65-110) H 06/14/18 16:34 Random Glucose 92 mg/dL (75-110) 06/17/18 08:54 Calcium 9.2 mg/dl (8.6-10.4) 06/17/18 08:54 Phosphorus 3.3 mg/dL (2.5-4.5) 06/16/18 10:58 Magnesium 2.0 mg/dL (1.6-2.3) 06/16/18 10:58 Total Bilirubin 0.4 mg/dL (0.2-1.3) 06/16/18 10:58 AST 45 U/L (17-59) 06/16/18 10:58 ALT 20 U/L (21-72) L 06/16/18 10:58 Alkaline Phosphatase 59 U/L (38-126) 06/16/18 10:58 Total Creatine Kinase 1147 U/L (55-170) H 06/14/18 08:10 CK-MB (Mass) 3.00 ng/mL (0.0-3.38) 06/14/18 08:10 Troponin I 0.6900 ng/mL (0.00-0.120) H* 06/14/18 08:10 NT-Pro-B Natriuret Pep 6130 pg/mL (0-900) H 06/12/18 14:53 Total Protein 6.4 g/dL (6.3-8.3) 06/16/18 10:58 Albumin 3.5 g/dL (3.5-5.0) 06/16/18 10:58 Globulin 2.8 gm/dL (2.2-3.9) 06/16/18 10:58 Albumin/Globulin Ratio 1.2 (1.0-2.1) 06/16/18 10:58 Triglycerides 46 mg/dL (0-149) D 06/13/18 07:40 Cholesterol 131 mg/dL (0-199) 06/13/18 07:40 LDL Cholesterol Direct 91 mg/dL (0-129) 06/13/18 07:40 HDL Cholesterol 41 mg/dL (30-70) 06/13/18 07:40 - Hospital Course Hospital Course: HPI on admission: "73M with a pmhx pof CHF, COPD on home O2, CAD, cardiac arrest 12/2017, A fib, PVD, HTN, HLD, BPH presents to the ED after his AICD went off 3x today while at home. Pt says he walked to the store this morning, got very SOB, then when he got home felt some minor chest pain. while at home walking in his house it went off and caused him distress and to call the ambulance. Pt has a longstanding cardiac hx, and says hes been SOB on exertion for 3 years. Pt denies any nausea, vomiting, syncope, headaches, fevers, chills. of note, pt was last hospitalized in may 21 for a CHF exacerbation. " Discharge Exam - Head Exam Head Exam: ATRAUMATIC, NORMAL INSPECTION, NORMOCEPHALIC - Additional Findings Additional findings: - Constitutional Appears: Non-toxic, No Acute Distress, Chronically Ill - Head Exam Head Exam: ATRAUMATIC, NORMAL INSPECTION, NORMOCEPHALIC - Eye Exam Eye Exam: EOMI, Normal appearance - ENT Exam ENT Exam: Mucous Membranes Moist, Normal Exam - Neck Exam Neck Exam: Normal Inspection - Respiratory Exam Respiratory Exam: Accessory Muscle Use, Rales (right lower). absent: Respiratory Distress, NORMAL BREATHING PATTERN (tachypneic) - Cardiovascular Exam Cardiovascular Exam: REGULAR RHYTHM. absent: Tachycardia - GI/Abdominal Exam GI & Abdominal Exam: Soft, Normal Bowel Sounds. absent: Distended, Tenderness - Neurological Exam Neurological Exam: Alert, Awake - Psychiatric Exam Psychiatric exam: Flat Affect, Normal Affect, Normal Mood - Skin Skin Exam: Dry, Intact, Pallor, Warm. absent: Cyanosis Discharge Plan - Discharge Medications Prescriptions: Amiodarone Hydrochloride [Cordarone] 100 mg PO Q12 #60 tab Diclofenac Sodium [Voltaren] 100 gm TP DAILY #1 tube Metoprolol Tartrate [Lopressor] 50 mg PO Q12 #60 tab - Follow Up Plan Condition: STABLE Disposition: HOME/ ROUTINE Instructions: Heart Healthy Diet, Amiodarone, Metoprolol, Heart Failure (DC), Pacemaker (DC) Additional Instructions: Please follow up with Dr. Gonzalez within 1 week. Call to make an appointment. Please follow up with Dr. Mason Yung the Heart Failure specialist at [facility] within 1 week for follow up Please follow up with Dr. Maddox, cardiology and Dr. Goddard, Transition Mgr within 1 week of discharge Please take your medication as prescribed. If symptoms worsen, please return to the emergency department. Please take care and be well. Referrals: Virgilio Goddard MD [Staff Provider] - Corey Maddox MD [Staff Provider] - Mason Yung MD [Medical Doctor] - Warren Gonzalez Jr., MD [Medical Doctor] -
[2018-06-19 10:40] VITALS: BP 121/81
--- NOTE | 2018-06-20 08:15 | PCM.HF ---
Heart Failure Core Measure - Heart Failure Ejection Fraction: Less Than 40 % DIDIER Inhibitor Prescribed: Yes Beta-Harley Prescribed: Metoprolol Succinate Angiotensin II Receptor Harley Prescribed: No Contraindication/Reason for not providing: on arb AnticoagulationTherapy for Atrial Fibrillation/Atrialflutter: No Contraindication/Reason for not providing: no hx of a fib Aldosterone Antagonist Prescribed: Yes Hydralazine Nitrate Prescribed: No Contraindication/Reason for not providing: on imdur and amiodorone for rate controll Implantable Cardioverter Defibrillator Therapy: Yes Contraindication/Reason for not providing: pt has AICD Cardiac Resynchronization Therapy Prescribed: No Contraindication/Reason for not providing: pt has aicd - Follow up Will be discharged to: Home Follow Up Date (must be within 7 days from discharge): 06/24/18 Follow Up Time: 08:00
--- NOTE | 2018-06-24 01:26 | CARDCATH ---
PROCEDURE DATE: 06/17/2018 PROCEDURES: 1. Left heart catheterization. 2. Coronary angiogram. CLINICAL INDICATIONS: 1. Status post cardiac arrest. 2. Chronic systolic CHF, status post AICD. 3. Coronary artery disease. 4. Hypertension. 5. Hyperlipidemia. REFERRING PHYSICIAN: Warren Gonzalez MD PERFORMING PHYSICIAN: Corey Maddox MD DESCRIPTION OF THE PROCEDURE: After informed consent, the patient was prepped and draped in the usual sterile fashion. A 2% lidocaine was given in the right groin for local anesthesia. Using micropuncture technique, 6-Tongan sheath was introduced into right common femoral artery. A JR4 diagnostic catheter inserted into left ventricle across the aortic valve. LVEDP measured. Contrast was injected and LV angiogram was done. Then the catheter was pulled back across the aortic valve. Gradient across the aortic valve was measured. The same catheter engaged into right coronary artery. Contrast injected and right coronary angiogram was done. Then the catheter was exchanged to 6-Tongan JL4 diagnostic catheter. The catheter was engaged into left main coronary artery. Contrast was injected and left coronary angiogram was done. Radiological supervision and radiological interpretation of the coronary imaging was done. FINDINGS: 1. Left main coronary artery is patent. 2. LAD and diagonal branches are patent. 3. Left circumflex and obtuse marginal branches are patent. 4. Right coronary artery is dominant and mid right coronary artery has 50% nonobstructive stenosis. 5. LV ejection fraction is approximately 30%. . EDP is 24. No gradient across the aortic valve. IMPRESSION: 1. Nonischemic cardiomyopathy. 2. Nonobstructive coronary artery disease. Mid right coronary artery has a 50% to 60% nonobstructive lesion. Recommend medical management. Corey Maddox MD
== END 2018-06-19 13:11 | disposition home or self-care (01) | DRG 287 ==
LOC: C.ER 14:33 → C.9E 15:31 → C.6T 16:26
PROVIDERS: ADMIT Internal Medicine; ATTEND Internal Medicine
PROC: 4A023N7 Measurement of Cardiac Sampling and Pressure, Left Heart, Percutaneous Approach (ICD-10-PCS; principal; 2018-06-17)
PROC: B2111ZZ Fluoroscopy of Multiple Coronary Arteries using Low Osmolar Contrast (ICD-10-PCS; 2018-06-17)
DX: I25.10 Atherosclerotic heart disease of native coronary artery without angina pectoris (principal); I50.22 Chronic systolic (congestive) heart failure; E78.5 Hyperlipidemia, unspecified; I42.0 Dilated cardiomyopathy; I11.0 Hypertensive heart disease with heart failure; I48.91 Unspecified atrial fibrillation; J43.9 Emphysema, unspecified; I50.9 Heart failure, unspecified; N40.0 Benign prostatic hyperplasia without lower urinary tract symptoms; R09.02 Hypoxemia; J44.9 Chronic obstructive pulmonary disease, unspecified; Z95.0 Presence of cardiac pacemaker; Z95.5 Presence of coronary angioplasty implant and graft; Z99.81 Dependence on supplemental oxygen; Z87.891 Personal history of nicotine dependence; E11.51 Type 2 diabetes mellitus with diabetic peripheral angiopathy without gangrene; Z95.810 Presence of automatic (implantable) cardiac defibrillator